=== PATIENT | male | born 1940 | race Caucasian/White ===

== ENCOUNTER 2020-02-27 01:34 | Observation (INO) | payer OTHER, SELFPAY ==
[2020-02-27] VITALS (22 sets, daily range): BP systolic 98–135; BP diastolic 52–78; PULSE 72–93; RESP 17–24; TEMP 35.9–37.3; O2SAT 96–100; BMI 27.1
--- NOTE | 2020-02-27 | ECHO_ITS ---
Patient Info Name: Padmini Amador Age: 79 years : 1940 Gender: Male Ht: 72 in Wt: 199 lbs BSA: 2.15 m2 HR: 80 bpm BP: 102 / 52 mmHg Heart Rhythm: Sinus Arrhythmia Technical Quality: Good Exam Date: 02/27/2020 1:25 PM Exam Location: [facility] Pulmonary Patient Status: Inpatient Admit Date: 02/27/2020 Staff Ordering Physician: Rafa Simms MD ([email or web address]) Wordpress Developer: Ralf Verma RDCS Attending Provider: Nilam Hermosillo DO Exam Type: CA echo doppler color flow Study Info Indications I50.9 - Heart failure, unspecified Complete two-dimensional, color flow and Doppler transthoracic echocardiogram is performed. History/Risk Factors CHF; HTN, SOB, chest pain, DM2. Summary 1. Complete two-dimensional, color flow and Doppler transthoracic echocardiogram is performed. 2. Left ventricular chamber dimension is mildly enlarged. 3. Left ventricular systolic function is moderately to severely reduced, estimated at 35-40%. 4. Left atrial chamber dimension is mildly enlarged. 5. There is moderate aortic valve calcification with moderate restricted motion. 6. There is mild aortic valve stenosis. Aortic valve peak velocity is 2.5 m/s. Aortic valve mean gradient is 18 mmHg. Aortic valve area 1.0 cm2. 7. There is mild to moderate mitral valve regurgitation. 8. There is mild tricuspid valve regurgitation. 9. There is moderate pulmonary hypertension, estimated pulmonary arterial systolic pressure is 45-50 mmHg. 10. Inferior vena cava is dilated. 11. There is no pericardial effusion. Left Ventricle Left ventricular chamber dimension is mildly enlarged. Left ventricular systolic function is moderately to severely reduced, estimated at 35-40%. There is borderline increased left ventricular wall thickness. The left ventricular diastolic function is indeterminate due to fused e and a waves. . Right Ventricle Right ventricular chamber dimension is normal. Right ventricular systolic function is normal. Left Atria Left atrial chamber dimension is mildly enlarged. Right Atria Right atrial chamber dimension is normal. Aortic Valve The aortic valve is trileaflet. There is no aortic valve sclerosis. There is mild aortic valve stenosis. Aortic valve peak velocity is 2.5 m/s. Aortic valve mean gradient is 18 mmHg. Aortic valve area 1.0 cm2. There is no aortic valve regurgitation. There is moderate aortic valve calcification with moderate restricted motion. Pulmonic Valve The pulmonic valve is normal. There is no pulmonic valve stenosis. There is no pulmonic regurgitation. Mitral Valve The mitral valve has normal leaflets. There is no mitral valve stenosis. There is mild to moderate mitral valve regurgitation. Tricuspid Valve The tricuspid valve leaflets are normal. There is no significant tricuspid valve stenosis. There is mild tricuspid valve regurgitation. There is moderate pulmonary hypertension, estimated pulmonary arterial systolic pressure is 45-50 mmHg. Pericardium/Pleural The pericardium appears normal. There is no pericardial effusion. Inferior Vena Cava Inferior vena cava is dilated. Aorta The aortic root size at the sinus of Valsalva is normal. The prox ascending aorta size is normal. Left Ventricular Outflow Tract Name Value Normal
--- NOTE | ~2020-02-27 | XR_ITS ---
XR chest 2V DATE: 02/27/2020 02:29 INDICATION: Shortness of breath, wheezing TECHNIQUE: PA and lateral views COMPARISON: None FINDINGS: Heart size is within normal range. Is aortic arch calcification. The fissures are mildly prominent. Occasional Jacinto B-lines. Minimal blunting of the costophrenic an gles may indicate minimal pleural effusions. Scattered subtle patchy infiltrates are suggested. Differential diagnosis includes pneumonia, mild co ngestive changes. Included skeletal structures are unremarkable other than mild degenerative changes of the spine. Surgical clips overlie the upper abdomen on lateral view. IMPRESSION: Subtle scattered patchy infiltrates; diffusion diagnosis includes pneumonia, pulmonary ed rekha Minimal congestive changes are suggested Reviewed, dictated and finalized at location A. IMPRESSION: Subtle scattered patchy infiltrates; diffusion diagnosis includes p neumonia, pulmonary edema Minimal congestive changes are suggested
--- NOTE | 2020-02-27 01:45 | ECG_ITS ---
Measurements Intervals [place] Rate: 83 P: 56 NM: 192 QRS: -18 QRSD: 107 T: 142 QT: 372 QTc: 438 Interpretive Statements SINUS RHYTHM VENTRCICULAR COUPLET AND VENTRICULAR BIGEMINY DELAYED PRECORDIAL R/S TRANSITION ST-T WAVE ABNORMALITY IN HIGH LATERAL LEADS- CONSIDER ISCHEMIA BASELINE ARTIFACT- V4 ABNORMAL ECG Electronically Signed On 02-27-2020 6:51:03 CDT by John Dutta D.O.
[2020-02-27 02:18] LABS: Basophils Percent Auto 0.6 % (0.2-1.2); Eosinophils Absolute Auto 0.1 K/mm3 (0-0.3); Eosinophils Percent Auto 1.3 % (0-4.4); Hematocrit 36.7 % (42.0-52.0); Hemoglobin 11.8 g/dL (14.0-18.0); Immature Granulocyte Absolute 0.03 K/mm3 (0.00-0.031); Immature Granulocyte Percent A 0.5 % (0-0.5); Lymphocytes Absolute Auto 0.75 K/mm3 (0.9-3.2); Lymphocytes Percent Auto 11.8 % (18.3-44.2); Mean Corpuscular HGB Conc 32.2 g/dl (32-36); Mean Corpuscular Hemoglobin 30.3 pg (26-34); Mean Corpuscular Volume 94.1 fl (80-100); Mean Platelet Volume 12.1 fl (7.4-10.4); Monocytes Absolute Auto 0.8 K/mm3 (0.1-0.6); Monocytes Percent Auto 11.9 % (2.6-8.5); Neutrophils Absolute Auto 4.7 K/mm3 (1.3-6.7); Neutrophils Percent Auto 73.9 % (45.5-73.1); Platelet Count Result 123 k/mm3 (150-375); Red Cell Distribution Width 14.6 % (11.5-14.5); White Blood Count 6.4 K/mm3 (4.5-10.0)
[2020-02-27 02:30] LABS: Anion Gap 8 mmol/L (8-16); Blood Urea Nitrogen 19 mg/dL (9-20); Calcium 9.3 mg/dL (8.4-10.2); Carbon Dioxide 31 mmol/L (22-30); Chloride 102 mmol/L (98-107); Estimated Glomerular Filt Rate > 60; Glucose 85 mg/dL (75-110); Potassium 4.3 mmol/L (3.4-5.0); Sodium 141 mmol/L (137-145)
[2020-02-27 02:54] LABS: NT Pro B Type Natriuretic Pept 5170 PG/ML (5-100); Troponin I 0.129 ng/mL (0.000-0.034)
--- NOTE | 2020-02-27 02:58 | ED.SOB ---
HPI - SOB/Dyspnea General Chief Complaint: Shortness of Breath/Dyspnea Stated Complaint: sob Time Seen by Provider: 02/27/20 01:37 History of Present Illness HPI Narrative: Patient is a 79-year-old male who presents the ER with shortness of breath. Reports over the last 5 weeks he has had increasing difficulty breathing. Is progressed to the point where his ability to walk is severely limited by his shortness of breath. He was winded walking in from the parking lot. Normally he can walk up and down hills without issue. He is denying any central chest pain or pressure. He does feel as though his chest is congested. He reports over the last 5 to 6 weeks he has been having a productive cough of frothy white sputum. Does not seem to be mucus-like. Occasionally has sinus congestion but it is not as persistence of chest congestion. Related Data Home Medications Medication Instructions Recorded Confirmed doxycycline hyclate 100 mg tablet 200 mg PO DAILY tablet 04/18/19 12/27/19 lancets 28 gauge #25 each 04/18/19 12/27/19 Allergies Allergy/AdvReac Type Severity Reaction Status Date / Time No Known Allergies Allergy Verified 02/27/20 01:45 Review of Systems Review of Systems: All systems reviewed & are unremarkable except as noted in HPI and below Constitutional: Constitutional: Denies chills, Reports fatigue and Denies fever(s) ENT: Reports nasal congestion and Denies sore throat Cardiovascular: Cardiovascular: Denies chest pain, Denies rapid heart rate and Denies radiating jaw, neck or arm pain Respiratory: Respiratory: Reports chest congestion, Reports cough, Reports dyspnea and Denies wheezing Gastrointestinal: Gastrointestinal: Denies abdominal pain, Denies nausea and Denies vomiting [facility] Past Medical History Medical History (Updated 02/27/20 @ 04:07 by Zander Hale MD) Diverticulosis of large intestine without perforation or abscess Dyslipidemia, goal LDL below 100 Enlarged prostate without lower urinary tract symptoms (luts) Type 2 diabetes mellitus with hyperglycemia Surgical History Surgical History (Updated 02/27/20 @ 03:01 by Zander Hale MD) History of cholecystectomy Previous back surgery Social History Social History Smoking status: Never smoker Second hand tobacco smoke exposure: No Smoking end date: 05/23/95 Alcohol intake: current Exam Narrative: Exam Narrative: GENERAL: Well-appearing, well-nourished, and in no acute distress. HEAD: Normocephalic, atraumatic. ENT: Mucous membranes moist. NECK: Supple. CHEST: Basilar crackles. No respiratory distress. HEART: Regular rate and rhythm with occasional dropped beats. Normal peripheral pulses. ABDOMEN: Soft, nontender, nondistended. EXTREMITIES: Normal range of motion. 1+ edema. SKIN: Warm, dry, no rash. NEURO: Alert and oriented x3. Course Course Emergency Course: Patient informed of results. Admit to hospitalist service. Lasix for diuresis. Vital Signs Vital signs: Vital Signs Temperature 97.8 F 02/27/20 01:39 Pulse Rate 86 02/27/20 01:39 Respiratory Rate 23 H 02/27/20 01:39 Blood Pressure 135/78 02/27/20 01:39 Pulse Oximetry 99 02/27/20 01:39 Temperature 97.8 F 02/27/20 01:39 Pulse Rate 84 02/27/20 03:08 Respiratory Rate 23 H 02/27/20 03:08 Blood Pressure 125/61 02/27/20 03:08 Pulse Oximetry 99 02/27/20 03:08 MDM - SOB/Dyspnea Lab Data Result diagrams: 02/27/20 02:11 02/27/20 02:11 Labs: Lab Results 02/27/20 02/27/20 Range/Units 02:11 02:11 WBC 6.4 (4.5-10.0) K/mm3 RBC 3.90 L (4.6-6.20) M/mm3 Hgb 11.8 L (14.0-18.0) g/dL Hct 36.7 L (42.0-52.0) % MCV 94.1 (80-100) fl MCH 30.3 (26-34) pg MCHC 32.2 (32-36) g/dl RDW 14.6 H (11.5-14.5) % Plt Count 123 L (150-375) k/mm3 MPV 12.1 H (7.4-10.4) fl Immature Gran % (Auto) 0.5 (0-0.5)
[2020-02-27] MEDS: FUROSEMIDE INJ 40 MG/4 ML VIAL IV PUSH ×3 (03:05→21:05)
--- NOTE | 2020-02-27 05:48 | ADMGEN ---
This patient, Padmini Amador, was admitted to IMU Room 214-01. Patient/family oriented to hospital policies and general routines including ID bracelet, bed and alarms, visiting hours, pain management, procedures, bathroom and other care routines, personal items, smoking policy, room service/diet, and visiting hours. Valuables list has been completed. Information on how to activate the Rapid Response Team has been discussed. Patient/Family are encouraged to report perceived risks to care and to ask questions if they do not understand what they are told or what they should do.
[2020-02-27 06:03] LABS: Troponin I 0.115 ng/mL (0.000-0.034)
[2020-02-27 08:29] LABS: Glucose Point of Care 108 (65-105)
--- NOTE | 2020-02-27 08:44 | PM.CNCAR ---
Assessment and Plan Assessment and plan (1) Congestive heart failure: Code(s): I50.9 - Heart failure, unspecified Status: Acute Assessment and Plan: 79 y/o with no known cardiac history who presents with exertional dyspnea and orthopnea He has evidence of volume overloaded on exam with pulmonary edema on Xray and elevated BNP all consistent with new discovery of congestive heart failure HFrEF vs HFpEF. 2D echo scheduled today to assess LV systolic function and rule out valvular disease Continue IV diuresing with close monitoring of kidney function will start low dose metoprolol for bigeminal PVCs If EF low will also need JUSTINE or ARB He has mild trop elevation with no chest pain or ischemic changes on EKG. Likely type II WA from increased demand with volume overload. No indication of anticoagulation. If EF low then will need ischemic evaluation at some point, possibly in outpatient settings (2) Elevated troponin: Code(s): R77.8 - Other specified abnormalities of plasma proteins Status: Acute Assessment and Plan: Likely due to increase demand (3) Ventricular bigeminy: Code(s): I49.8 - Other specified cardiac arrhythmias Status: Acute Assessment and Plan: Start Metoprolol Frequent PVCs could cause cardiomyopathy however he will need to rule out other common etiologies first like ischemic cardiomyopathy and valvular disease (4) Type 2 diabetes mellitus with hyperglycemia: Code(s): E11.65 - Type 2 diabetes mellitus with hyperglycemia Status: Acute History of Present Illness History of Present Illness Consult date/time: 02/27/20 08:44 79 y/o male with no prior cardiac history, medical history of DM, HLD and BPH who presents with dyspnea. He is very active at baseline however over the last few weeks he started noticing dyspnea and cough with yard work. He saw his PCP and was told he may have allergies. He dyspnea progressed to the point he gets dyspnic walking room to room at house. He also reports orthopnea and it was difficult to get sleep over the last week because of that. He denies chest pain, dizziness or syncope. He presented to ER and chest X ray showed pulmonary edema. His BNP is elevated. His trop is also mildly elevated. EKG shows sinus rhythm with frequent PVCs in bigeminy Never smoker. 3 of his brothers has pacemakers. his father of stroke. Reason For Visit: new onset chf, elevated trop Review of Systems Review of Systems: All systems reviewed & are unremarkable except as noted in HPI and below Constitutional: Constitutional: Denies fatigue and Denies headache(s) Eyes: Eyes: Denies blurry vision ENT: Reports Normal hearing present and Denies headache(s) Cardiovascular: Cardiovascular: Denies chest pain, Denies diaphoresis, Denies pedal edema, Denies leg edema, Denies lightheadedness, Denies palpitations and Denies dyspnea Respiratory: Respiratory: Denies cough and Denies dyspnea Gastrointestinal: Gastrointestinal: Denies abdominal pain Musculoskeletal: Musculoskeletal: Denies back pain Neurologic: Reports Normal hearing present and Denies headache(s) Psychiatric: Psychiatric: Denies anxiety Endocrine: Endocrine: Denies fatigue and Denies palpitations PMFSH Past Medical History Medical History (Updated 02/27/20 @ 09:16 by Rafa Simms MD) Diverticulosis of large intestine without perforation or abscess Dyslipidemia, goal LDL below 100 Enlarged prostate without lower urinary tract symptoms (luts) Type 2 diabetes mellitus with hyperglycemia Surgical History Surgical History (Updated 02/27/20 @ 03:01 by Zander Hale MD) History of cholecystectomy Previous back surgery Social History Social History Smoking status: Never smoker Second hand tobacco smoke exposure: No Smoking end date: 05/23/95 Alcohol intake: never Substance use:
--- NOTE | 2020-02-27 09:44 | PM.IMHP ---
H&P: HPI History of Present Illness Date/Time: 02/27/20 09:44 Chief complaint: new onset chf, elevated trop Narrative: Date of visit 02/26 915. Padmini Amador is a 79 year old male with type 2 diabetes and BPH presented to the emergency room with approximately 4 week history progressive shortness of with dyspnea on exertion and cough. No fever no chills no chest pain. He has not had any significant edema but says he has had trouble sleeping secondary to shortness of breath. No history of smoking or significant occupational exposures. Received IV Lasix p.m. and breathing better this a.m. Review of Systems Review of Systems: Narrative: constitutional weight is steady bed since he has been more short of breath his appetite has been decreased Eye no double vision [place] mouth no pharyngitis laryngitis no wheezing and cough is productive clear phlegm only CV as per present illness has noticed no palpitations or lightheadedness no dysuria hematuria GI no melena hematochezia diarrhea, occasionally intermittently will have trouble with swallowing which is ongoing for years neuro no seizures no syncope integument no skin breakdown rashes PMFSH Past Medical History Medical History (Updated 02/27/20 @ 09:55 by Mansoor Hdez MD) Diverticulosis of large intestine without perforation or abscess Dyslipidemia, goal LDL below 100 Enlarged prostate without lower urinary tract symptoms (luts) Type 2 diabetes mellitus with hyperglycemia Surgical History Surgical History (Updated 02/27/20 @ 09:51 by Mansoor Hdez MD) History of cholecystectomy Previous back surgery S/P herniorrhaphy Family History Family History (Updated 02/27/20 @ 09:51 by Mansoor Hdez MD) Father , age 77 Acute myocardial infarction Mother , age 52 Acute myocardial infarction Sibling Acute myocardial infarction Social History Social History (Updated 02/27/20 @ 09:52 by Mansoor Hdez MD) 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 status: Never smoker Second hand tobacco smoke exposure: No Smoking end date: 05/23/95 Alcohol intake: never Substance use: never Spiritual care concerns: No Meds Home Medications and Allergies Home Medications Medication Instructions Recorded Confirmed Type doxycycline hyclate 100 mg tablet 200 mg PO DAILY tablet 04/18/19 02/27/20 History glimepiride 2 mg tablet 2 mg PO QAM #180 tablet 04/18/19 02/27/20 Rx metformin 1,000 mg tablet 1,000 mg PO BID #180 tablet 04/18/19 02/27/20 Rx pravastatin 40 mg tablet 40 mg PO DAILY #90 tablet 08/13/19 02/27/20 Rx finasteride 5 mg tablet 5 mg PO DAILY #90 tablet 12/11/19 02/27/20 Rx doxazosin 4 mg tablet 8 mg PO DAILY #90 tablet 12/31/19 02/27/20 Rx Allergies Allergy/AdvReac Type Severity Reaction Status Date / Time No Known Allergies Allergy Verified 02/27/20 01:45 Vital Signs Vital Signs - 24 hr 02/27/20 01:39 02/27/20 02:26 02/27/20 03:08 Temperature 36.6 C Pulse Rate 86 88 84 Respiratory Rate 23 H 23 H Blood Pressure 135/78 125/61 Pulse Oximetry 99 99 02/27/20 04:13 02/27/20 04:54 02/27/20 05:12 Temperature Pulse Rate 83 81 83 Respiratory Rate 24 H 19 17 Blood Pressure 111/64 129/63 132/70 Pulse Oximetry 96 98 97 02/27/20 05:40 02/27/20 06:00 02/27/20 08:44 Temperature 35.9 C L 36.2 C L Pulse Rate 87 87 79 Respiratory Rate 18 18 Blood Pressure 111/75 118/58 L Pulse Oximetry 97 100 Exam Narrative: Exam Narrative: blood pressure 110/58 pulse 78 respirations 18 per minute saturating 100% on room air pupils equal reactive light sclera anicteric mouth mucosa normal hydration upper and lower dentures which were not removed neck supple no adenopathy thyromegaly carotid bruits lungs bibasilar crackles posteriorly CV regular rate was in with extrasystole and systolic ejection murmur lower left sternal border radiating toward
[2020-02-27] MEDS: PRAVASTATIN SODIUM 20 MG TABLET 40 MG PO (10:19)
[2020-02-27] MEDS: FINASTERIDE 5 MG TABLET PO (10:19)
[2020-02-27] MEDS: METOPROLOL SUCCINATE EXT REL 25 MG TABCR PO (10:19)
[2020-02-27] MEDS: POTASSIUM CHLORIDE 20 MEQ TABLET 40 MEQ PO (10:19)
[2020-02-27] MEDS: DOXAZOSIN MESYLATE 4 MG TABLET 8 MG PO (10:20)
[2020-02-27] MEDS: ENOXAPARIN 40 MG/0.4 ML SYRINGE SUB-Q (10:21)
[2020-02-27 11:36] LABS: Troponin I 0.101 ng/mL (0.000-0.034)
[2020-02-27 11:39] LABS: Glucose Point of Care 299 (65-105)
[2020-02-27] MEDS: metFORMIN HCL 500 MG TABLET 1000 MG PO ×2 (15:03→16:56)
[2020-02-27 16:39] LABS: Glucose Point of Care 144 (65-105)
[2020-02-27] MEDS: lisinopriL 5 MG TABLET PO (16:56)
[2020-02-27 20:16] LABS: Glucose Point of Care 108 (65-105)
[2020-02-28] VITALS (10 sets, daily range): BP systolic 102–104; BP diastolic 52–62; PULSE 59–72; RESP 16–20; TEMP 36.3; O2SAT 96–98
[2020-02-28 05:50] LABS: Basophils Percent Auto 0.5 % (0.2-1.2); Eosinophils Percent Auto 0.7 % (0-4.4); Hematocrit 33.9 % (42.0-52.0); Hemoglobin 11.1 g/dL (14.0-18.0); Immature Granulocyte Absolute 0.01 K/mm3 (0.00-0.031); Immature Granulocyte Percent A 0.2 % (0-0.5); Lymphocytes Absolute Auto 0.78 K/mm3 (0.9-3.2); Lymphocytes Percent Auto 14.2 % (18.3-44.2); Mean Corpuscular HGB Conc 32.7 g/dl (32-36); Mean Corpuscular Hemoglobin 29.9 pg (26-34); Mean Corpuscular Volume 91.4 fl (80-100); Mean Platelet Volume 12.5 fl (7.4-10.4); Monocytes Percent Auto 17.7 % (2.6-8.5); Neutrophils Absolute Auto 3.7 K/mm3 (1.3-6.7); Neutrophils Percent Auto 66.7 % (45.5-73.1); Platelet Count Result 124 k/mm3 (150-375); Red Blood Count 3.71 M/mm3 (4.6-6.20); Red Cell Distribution Width 14.3 % (11.5-14.5); White Blood Count 5.5 K/mm3 (4.5-10.0)
[2020-02-28 05:52] LABS: Immature Reticulocyte Fraction 13.8 % (3.0-15.9); Reticulocyte Hemoglobin Conten 32.3 pg (28.2-35.7); Reticulocyte Percent 1.84 % (0.7-4.3); Reticulocytes Absolute 0.07 B/L (32.2-175.7)
[2020-02-28 06:15] LABS: Magnesium 1.6 mg/dL (1.6-2.3)
[2020-02-28 06:20] LABS: Anion Gap 6 mmol/L (8-16); Blood Urea Nitrogen 21 mg/dL (9-20); Calcium 9.1 mg/dL (8.4-10.2); Carbon Dioxide 35 mmol/L (22-30); Chloride 95 mmol/L (98-107); Estimated CRCL calculation 50 ml/min; Estimated Glomerular Filt Rate 59; Glucose 95 mg/dL (75-110); Lactate Dehydrogenase 400 U/L (313-618); Sodium 136 mmol/L (137-145)
[2020-02-28 06:46] LABS: Iron 24 ug/dL (49-181)
[2020-02-28 06:56] LABS: Percent Iron Saturation 7 % (20-50)
[2020-02-28 08:11] LABS: Glucose Point of Care 102 (65-105)
[2020-02-28] MEDS: metFORMIN HCL 500 MG TABLET 1000 MG PO (08:17)
[2020-02-28] MEDS: FINASTERIDE 5 MG TABLET PO (08:18)
[2020-02-28] MEDS: ENOXAPARIN 40 MG/0.4 ML SYRINGE SUB-Q (08:18)
[2020-02-28] MEDS: METOPROLOL SUCCINATE EXT REL 25 MG TABCR PO (08:18)
[2020-02-28] MEDS: FUROSEMIDE INJ 40 MG/4 ML VIAL IV PUSH (08:18)
[2020-02-28] MEDS: PRAVASTATIN SODIUM 20 MG TABLET 40 MG PO (08:18)
[2020-02-28] MEDS: DOXAZOSIN MESYLATE 4 MG TABLET 8 MG PO (08:18)
[2020-02-28] MEDS: lisinopriL 5 MG TABLET PO (08:18)
--- NOTE | 2020-02-28 09:10 | PM.PNCARD ---
Progress Note: A&P Assessment and Plan (1) Congestive heart failure: Code(s): I50.9 - Heart failure, unspecified Status: Acute Assessment and Plan: 79 y/o with no known cardiac history who presents with exertional dyspnea and orthopnea 2D echo showed EF of 35% with mild aortic stenosis, mild to moderate mitral regurgitation Net negative ~3 liters over the last 24 hours. Creatinine stable Will switch Lasix to po. Would discharge on 40 mg po daily He was started on low dose Metoprolol 25 daily and Lisinopril 5 daily. Will d/c Doxazosyn to allow BP room for further up titration of BB/JUSTINE He will need ischemic evaluation for cardiomyopathy. Will arrange for [facility] as outpatient He has very frequent PVCs. If ischemic work up negative then may consider EP referral as PVC could potentially be the etiology of cardiomyopathy. Will monitor for now on Metoprolol started this admission He has mild trop elevation with no chest pain or ischemic changes on EKG. Likely type II AR from increased demand. Will arrange for LHC as above for ischemic evaluation (2) Elevated troponin: Code(s): R77.8 - Other specified abnormalities of plasma proteins Status: Acute Assessment and Plan: Likely due to increase demand (3) Ventricular bigeminy: Code(s): I49.8 - Other specified cardiac arrhythmias Status: Acute Assessment and Plan: Start Metoprolol (4) Type 2 diabetes mellitus with hyperglycemia: Code(s): E11.65 - Type 2 diabetes mellitus with hyperglycemia Status: Acute Subjective Date/time seen: 02/28/20 09:10 He feels much better today. He went for a walk in the hallway and states his breathing is remarkable better Review of Systems Review of Systems: All systems reviewed & are unremarkable except as noted in HPI and below Constitutional: Constitutional: Denies fatigue and Denies headache(s) Eyes: Eyes: Denies blurry vision ENT: Reports Normal hearing present and Denies headache(s) Cardiovascular: Cardiovascular: Denies chest pain, Denies diaphoresis, Denies pedal edema, Denies leg edema, Denies lightheadedness, Denies palpitations and Denies dyspnea Respiratory: Respiratory: Denies cough and Denies dyspnea Gastrointestinal: Gastrointestinal: Denies abdominal pain Musculoskeletal: Musculoskeletal: Denies back pain Neurologic: Reports Normal hearing present and Denies headache(s) Psychiatric: Psychiatric: Denies anxiety Endocrine: Endocrine: Denies fatigue and Denies palpitations Exam Const: General: no acute distress Eyes: Sclera: sclerae normal Neck: Carotids: no bruits Other: + JVD Resp: Effort & Inspection: normal respiratory effort Auscultation: clear to auscultation bilaterally Cardio: Rate: regular rate and not tachycardic Rhythm: regular rhythm Heart sounds: no gallops, Murmur heart sound present and no rubs Other: Regularly irregular. Soft murmur noted. Skin: General skin exam: normal color Neuro: Cranial nerves: Yes Normal hearing present Speech: normal speech Extrem: General: normal to inspection and no edema Psych: Affect: normal affect Objective Data Vital Signs Vital Signs: Vital Signs - 24 hr 02/27/20 10:00 02/27/20 10:19 02/27/20 12:00 Temperature Pulse Rate 75 90 79 Respiratory Rate Blood Pressure Pulse Oximetry 02/27/20 12:48 02/27/20 14:00 02/27/20 16:00 Temperature 36.4 C Pulse Rate 76 74 93 Respiratory Rate 20 Blood Pressure 102/52 L Pulse Oximetry 98 02/27/20 16:44 02/27/20 18:00 02/27/20 19:43 Temperature 36.7 C 37.3 C Pulse Rate 84 86 77 Respiratory Rate 20 18 Blood Pressure 98/58 L 101/52 L Pulse Oximetry 100 97 02/27/20 20:00 02/27/20 22:00 02/27/20 23:58 Temperature 36.8 C Pulse Rate 80 80 72 Respiratory Rate 18 18 Blood Pressure 110/58 L Pulse Oximetry 97 96 02/28/20 00:00 02/28/20 02:00 02/28/20 04:00 Temperature Pulse Rate 70 63 70
--- NOTE | 2020-02-29 18:25 | PM.DS ---
DS: Admitting Diagnosis Admitting Diagnosis Admitting Diagnosis: new onset chf, elevated trop DS: Discharge Diagnosis Discharge Diagnosis (1) Congestive heart failure: Code(s): I50.9 - Heart failure, unspecified Status: Acute Assessment and Plan: appears to be new onset congestive failure . echo revealed ejection fraction of 35-40% with mild aortic stenosis and moderate mitral insufficiency with mild to moderate pulmonary hypertension estimated at 45. Was started on beta-jaya, Lasix, and JUSTINE-inhibitor. Will follow-up with BMP in a week and with Cardiology (2) Elevated troponin: Code(s): R77.8 - Other specified abnormalities of plasma proteins Status: Acute Assessment and Plan: probable related to heart failure but may need ischemic evaluation later probable cardiac catheterization since he is so active (3) Type 2 diabetes mellitus with hyperglycemia: Code(s): E11.65 - Type 2 diabetes mellitus with hyperglycemia Status: Acute Assessment and Plan: blood sugar well controlled will continue oral hypoglycemics at home (4) Enlarged prostate without lower urinary tract symptoms (luts): Code(s): N40.0 - Benign prostatic hyperplasia without lower urinary tract symptoms Status: Acute Assessment and Plan: continue finasteride and with blood pressure lower tamsulosin HS with substituted for doxazosin (5) Anemia: Code(s): D64.9 - Anemia, unspecified Status: Acute Assessment and Plan: hemoglobin and 2001 so 11.1. With slightly decreased platelets . iron studies compatible with anemia chronic disease and B12 toward the low side at 248 a.m. which was not replaced while here serum protein electrophoresis was pending at discharge DS: Summary Hospital Course Hospital Course: 79-year-old diabetic admitted with increasing shortness of breath over the last month. Chest x-ray looked to be congestive heart failure and was given IV Lasix and beta-jaya. Echocardiogram revealed ejection fraction 35-40% with mild aortic stenosis and moderate mitral insufficiency and mild to moderate pulmonary hypertension. Was treated with metoprolol succinate, lisinopril, and furosemide which will be continued on discharge. He will follow-up with BMP and Cardiology within the week Phani probably have outpatient cardiac catheterization. creatinine at discharge was 1.2 potassium 4.0 he has mild anemia which had been present for several years and iron studies were compatible with anemia chronic disease but B12 level was low at 248 and was not replaced here. Follow-up with primary care for possible parental injections Time Spent with Patient Time attestation: Total time spent providing and/or coordinating discharge services: 35 minutes Exam Narrative: Exam Narrative: condition on discharge blood pressure 106/52 pulse 60 saturating 98% on room air afebrile lungs clear CV regular rate rhythm faint systolic murmur abdomen benign extremities without edema good distal pulses neuro alert pleasant cooperative no focal deficits up and about walking the halls without any shortness of breath stable and ready for discharge Discharge Plan Discharge Attending physician on discharge: Mansoor Hdez Consulting providers: Rafa Simms Discharging Clinician: Mansoor Hdez Patient Disposition: Home, Self-Care Activity: as tolerated Diet: diabetic and low sodium Discharge Instructions: Follow up with Dr. Burdick in one week. [phone] Patient Instructions: Heart Failure (DC) Stand Alone Forms: General Discharge Information Follow-up/Referrals: Floyd Mckinney MD [Primary Care Provider] - 2 Weeks Rafa Simms MD [Physician] - 1 Week Discharge Medications: New lisinopril 5 mg Tablet 5 mg PO QAM Qty: 30 RF: 0 metoprolol succinate [Toprol XL] 25 mg Tablet Extended Release 24 Hr 25 mg PO QAM Qty: 30
[2020-03-04 22:55] LABS: Albumin 3.4 g/dL (3.8-4.8); Alpha 1 Globulin 0.3 g/dL (0.2-0.3); Alpha 2 Globulin 0.6 g/dL (0.5-0.9); Beta 1 Globulin 0.4 g/dL (0.4-0.6); Gamma Globulin 0.7 g/dL (0.8-1.7); Interpretation Consistent with; Protein, Total 5.6 g/dL (6.1-8.1)
== END 2020-02-28 10:58 | disposition home or self-care (01) ==
LOC: ANHED 04:07 → ANHIMU 06:33
PROVIDERS: Admitting Provider Internal Medicine; Emergency Provider Emergency Medicine; PCP Internal Medicine; Visit Provider Internal Medicine
DX: I50.9 Heart failure, unspecified (principal); R77.8 Other specified abnormalities of plasma proteins; E78.5 Hyperlipidemia, unspecified; E11.9 Type 2 diabetes mellitus without complications; I49.8 Other specified cardiac arrhythmias; N40.0 Benign prostatic hyperplasia without lower urinary tract symptoms; D63.8 Anemia in other chronic diseases classified elsewhere; Z79.84 Long term (current) use of oral hypoglycemic drugs
CPT/HCPCS: 36415; 71046; 80048; 82607; 82728; 83540; 83550; 83615; 83735; 83880; 84155; 84165; 84443; 84484; 85025; 85046; 93005; 93306; 96372; 96374; 96376; 99285; A9270; G0378; J1650; J1940

== ENCOUNTER 2020-03-03 09:20 | Outpatient (CLI) | payer OTHER, SELFPAY ==
[2020-03-03 09:57] LABS: Anion Gap 8 mmol/L (8-16); Blood Urea Nitrogen 27 mg/dL (9-20); Calcium 9.4 mg/dL (8.4-10.2); Carbon Dioxide 35 mmol/L (22-30); Chloride 93 mmol/L (98-107); Estimated Glomerular Filt Rate 59; Glucose 111 mg/dL (75-110); Potassium 4.6 mmol/L (3.4-5.0); Sodium 136 mmol/L (137-145)
== END 2020-03-03 09:21 | disposition home or self-care (01) ==
PROVIDERS: PCP Internal Medicine; Visit Provider Internal Medicine
DX: I50.9 Heart failure, unspecified (principal)
CPT/HCPCS: 36415; 80048

== ENCOUNTER 2020-03-07 02:17 | Outpatient (CLI) | payer OTHER, SELFPAY ==
[2020-03-07 18:25] LABS: SARS-CoV-2 RNA PCR Negative
== END 2020-03-07 02:18 | disposition home or self-care (01) ==
LOC: ANHCOVIDDT 02:17
PROVIDERS: PCP Internal Medicine; Visit Provider Specialist
DX: Z01.812 Encounter for preprocedural laboratory examination (principal); Z20.828 Contact with and (suspected) exposure to other viral communicable diseases
CPT/HCPCS: 87635; C9803; U0003

== ENCOUNTER 2020-03-10 02:14 | Day surgery (SDC) | payer OTHER, SELFPAY ==
[2020-03-07 13:44] VITALS: BMI 27.8
[2020-03-10] VITALS (17 sets, daily range): BP systolic 98–116; BP diastolic 63–80; PULSE 58–76; RESP 11–22; TEMP 36.4; O2SAT 96–100; BMI 27.0
[2020-03-10 11:40] LABS: Basophils Percent Auto 0.4 % (0.2-1.2); Eosinophils Absolute Auto 0.1 K/mm3 (0-0.3); Eosinophils Percent Auto 0.6 % (0-4.4); Hematocrit 39.2 % (42.0-52.0); Hemoglobin 12.6 g/dL (14.0-18.0); Immature Granulocyte Absolute 0.04 K/mm3 (0.00-0.031); Immature Granulocyte Percent A 0.4 % (0-0.5); Lymphocytes Absolute Auto 1.02 K/mm3 (0.9-3.2); Lymphocytes Percent Auto 10.9 % (18.3-44.2); Mean Corpuscular HGB Conc 32.1 g/dl (32-36); Mean Corpuscular Hemoglobin 29.6 pg (26-34); Mean Platelet Volume 11.7 fl (7.4-10.4); Monocytes Absolute Auto 1.1 K/mm3 (0.1-0.6); Monocytes Percent Auto 11.7 % (2.6-8.5); Neutrophils Absolute Auto 7.1 K/mm3 (1.3-6.7); Platelet Count Result 167 k/mm3 (150-375); Red Blood Count 4.26 M/mm3 (4.6-6.20); Red Cell Distribution Width 14.1 % (11.5-14.5); White Blood Count 9.4 K/mm3 (4.5-10.0)
[2020-03-10 11:51] LABS: Anion Gap 8 mmol/L (8-16); Blood Urea Nitrogen 21 mg/dL (9-20); Calcium 9.8 mg/dL (8.4-10.2); Carbon Dioxide 30 mmol/L (22-30); Chloride 99 mmol/L (98-107); Estimated CRCL calculation 52 ml/min; Estimated Glomerular Filt Rate > 60; Glucose 109 mg/dL (75-110); Potassium 4.7 mmol/L (3.4-5.0); Sodium 137 mmol/L (137-145)
[2020-03-10 11:55] LABS: INR 1.1; Prothrombin Time 14.2 Seconds (11.1-14.7)
--- NOTE | 2020-03-10 13:11 | WPDMODSED ---
Moderate Sedation Note-Pt Data Patient Data Allergies Allergy/AdvReac Type Severity Reaction Status Date / Time No Known Allergies Allergy Verified 02/27/20 01:45 Home Medications Medication Instructions Recorded Confirmed Type glimepiride 2 mg tablet 2 mg PO QAM #180 tablet 04/18/19 03/10/20 Rx metformin 1,000 mg tablet 1,000 mg PO BID #180 tablet 04/18/19 03/10/20 Rx pravastatin 40 mg tablet 40 mg PO DAILY #90 tablet 08/13/19 03/10/20 Rx finasteride 5 mg tablet 5 mg PO DAILY #90 tablet 12/11/19 03/10/20 Rx furosemide [Lasix] 40 mg PO DAILY #30 tablet 02/28/20 03/10/20 Rx lisinopril 5 mg PO QAM #30 tablet 02/28/20 03/10/20 Rx metoprolol succinate [Toprol XL] 25 mg PO QAM #30 tablet 02/28/20 03/10/20 Rx tamsulosin 0.4 mg PO HS #30 cap 02/28/20 03/10/20 Rx Current Medications: Active Medications Sodium Chloride (Normal Saline Iv) 500 mls @ 100 mls/hr IV CONT .Q5H ENIO Sedation/Anesthesia: No previous sedation/anesthesia problems (including family history). [facility] Past Medical History Medical History (Updated 02/27/20 @ 09:55 by Mansoor Hdez MD) Diverticulosis of large intestine without perforation or abscess Dyslipidemia, goal LDL below 100 Enlarged prostate without lower urinary tract symptoms (luts) Type 2 diabetes mellitus with hyperglycemia Surgical History Surgical History (Updated 02/27/20 @ 09:51 by Mansoor Hdez MD) History of cholecystectomy Previous back surgery S/P herniorrhaphy Family History Family History (Updated 02/27/20 @ 09:51 by Mansoor Hdez MD) Father , age 77 Acute myocardial infarction Mother , age 52 Acute myocardial infarction Sibling Acute myocardial infarction Social History Social History (Updated 02/27/20 @ 09:52 by Mansoor Hdez MD) 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 status: Never smoker Second hand tobacco smoke exposure: No Smoking end date: 05/23/95 Alcohol intake: never Substance use: never Living arrangements: with family Spiritual care concerns: No Mod Sed Physical Exam Physical Exam Pre Procedural Exam: Normal: Appearance, Eyes, Ears, Nose, Neck, Throat, Airway, Lungs, Heart Size, Heart Rate, Heart Rhythm, Neuro Exam, Abdomen, Liver, Kidneys, Spleen, Breasts, Genitalia, Extremities and Skin Hours since solid foods: 8 Hours since liquid intake: 8 Internal Medicine - PN: Obj Da Vital Signs Vital Signs: Vital Signs - 24 hr 03/10/20 11:53 Temperature 36.4 C Pulse Rate 58 L Respiratory Rate 16 Blood Pressure 101/72 Pulse Oximetry 99 Meds/Results Medications: Active Medications Generic Name Dose Route Start Last Admin Trade Name Freq PRN Reason Stop Dose Admin Sodium Chloride 500 mls @ 100 mls/hr 03/10/20 06:30 Normal Saline Iv IV CONT .Q5H ENIO Labs CBC & Chem 7: 03/10/20 11:32 03/10/20 11:32 Labs: Laboratory Results - last 24 hr 03/10/20 03/10/20 03/10/20 11:32 11:32 11:32 WBC 9.4 RBC 4.26 L Hgb 12.6 L Hct 39.2 L MCV 92.0 MCH 29.6 MCHC 32.1 RDW 14.1 Plt Count 167 MPV 11.7 H Immature Gran % (Auto) 0.4 Neut % (Auto) 76.0 H Lymph % (Auto) 10.9 L [place] % (Auto) 11.7 H Eos % (Auto) 0.6 Baso % (Auto) 0.4 Lymph # (Auto) 1.02 [place] # (Auto) 1.1 H Eos # (Auto) 0.1 Baso # (Auto) 0.0 Abs Immat Gran (auto) 0.04 H Absolute Neuts (auto) 7.1 H Absolute Nucleated RBC 0.0 Nucleated RBC % 0.0 PT 14.2 INR 1.1 Sodium 137 Potassium 4.7 Chloride 99 Carbon Dioxide 30 Anion Gap 8 BUN 21 H Creatinine 1.10 Estim Creat Clear Calc 52 Estimated GFR > 60 Glucose 109 Calcium 9.8 ASA Classification/Sedation ASA Classification/Sedation ASA Class: III Risks: Risks, benefits and alternatives explained and patient/family accepted plan for sedation. Patient re-evaluated immediately karen
--- NOTE | 2020-03-10 13:13 | PM.IMHP ---
H&P: HPI History of Present Illness Date/Time: 03/10/20 13:13 79 years old gentleman, with history of dyslipidemia hypertension, and diabetes mellitus, was in the hospital recently with congestive heart failure, echo showed severe left ventricular systolic dysfunction. After adequate diuresis and treatment was discharged home to come back as an outpatient for elective cardiac catheterization in view of significant risk factors for coronary disease and history of congestive heart failure. Chief complaint: SOB Narrative: Padmini Amador is a 79 year old male [facility] Past Medical History Medical History (Updated 02/27/20 @ 09:55 by Mansoor Hdez MD) Diverticulosis of large intestine without perforation or abscess Dyslipidemia, goal LDL below 100 Enlarged prostate without lower urinary tract symptoms (luts) Type 2 diabetes mellitus with hyperglycemia Surgical History Surgical History (Updated 02/27/20 @ 09:51 by Mansoor Hdez MD) History of cholecystectomy Previous back surgery S/P herniorrhaphy Family History Family History (Updated 02/27/20 @ 09:51 by Mansoor Hdez MD) Father , age 77 Acute myocardial infarction Mother , age 52 Acute myocardial infarction Sibling Acute myocardial infarction Social History Social History (Updated 02/27/20 @ 09:52 by Mansoor Hdez MD) 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 status: 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 smoker Second hand tobacco smoke exposure: No Smoking end date: 05/23/95 Alcohol intake: never Substance use: never Living arrangements: with family Spiritual care concerns: No Meds Home Medications and Allergies Home Medications Medication Instructions Recorded Confirmed Type glimepiride 2 mg tablet 2 mg PO QAM #180 tablet 04/18/19 03/10/20 Rx metformin 1,000 mg tablet 1,000 mg PO BID #180 tablet 04/18/19 03/10/20 Rx pravastatin 40 mg tablet 40 mg PO DAILY #90 tablet 08/13/19 03/10/20 Rx finasteride 5 mg tablet 5 mg PO DAILY #90 tablet 12/11/19 03/10/20 Rx furosemide [Lasix] 40 mg PO DAILY #30 tablet 02/28/20 03/10/20 Rx lisinopril 5 mg PO QAM #30 tablet 02/28/20 03/10/20 Rx metoprolol succinate [Toprol XL] 25 mg PO QAM #30 tablet 02/28/20 03/10/20 Rx tamsulosin 0.4 mg PO HS #30 cap 02/28/20 03/10/20 Rx Allergies Allergy/AdvReac Type Severity Reaction Status Date / Time No Known Allergies Allergy Verified 02/27/20 01:45 Vital Signs Vital Signs - 24 hr 03/10/20 11:53 Temperature 36.4 C Pulse Rate 58 L Respiratory Rate 16 Blood Pressure 101/72 Pulse Oximetry 99 Exam Narrative: Exam Narrative: Awake alert oriented x3 not in acute distress Neck is supple no obvious JVD, no carotid bruit Chest: Good air entry bilaterally, lungs are clear to auscultation and percussion bilaterally Cardiovascular: Regular rate and rhythm, 2/6 systolic murmur noted left sternal border Abdomen: Soft nontender bowel sounds positive Extremities: No edema has good pulses distally bilaterally H&P: Results Labs Labs: Short CBC 03/10/20 Range/Units 11:32 WBC 9.4 (4.5-10.0) K/mm3 Hgb 12.6 L (14.0-18.0) g/dL Hct 39.2 L (42.0-52.0) % Plt Count 167 (150-375) k/mm3 [facility] 03/10/20 11:32 Sodium 137 Potassium 4.7 Chloride 99 Carbon Dioxide 30 BUN 21 H Creatinine 1.10 Glucose 109 Calcium 9.8 Assessment and Plan Assessment and plan (1) Type 2 diabetes mellitus with hyperglycemia: Code(s): E11.65 - Type 2 diabetes mellitus with hyperglycemia Status: Acute Assessment and Plan: will plan cardiac catheterization. The procedure was discussed with the patient, risks, benefits, and alternative diagnostic measure was explained, patient agreed to the procedure (2) Elevated troponin: Code(s): R77.8 - Other specified abnormalities of plasma proteins Status: Acute (3) Congestive heart failure: Code(s): I50.9 - Heart failur
--- NOTE | 2020-03-10 13:34 | P.PCNCC_ITS ---
Cardiac Cath Procedure Note Date of procedure:: 03/10/20 Performing physician:: Jarvis Burdick MD Procedure: 1. Left heart catheterization, selective coronary angiogram. 2. Left ventricular Pressure measurements 3. Conscious sedation. Chucking And Sawing Machine Operator: Dr. Jarvis Burdick History: 79 years old gentleman with history of diabetes mellitus hypertension was seen because of congestive heart failure, had slight elevation troponin was brought to the laboratory animal caretaker for elective cardiac catheterization for definitive diagnosis of coronary disease Complications: None. Sedation: Conscious sedation, local anesthesia, using 1 mg of Versed said, 25 mcg of fentanyl, and using 1% lidocaine for local anesthesia. starting time is 1:11 p.m. ending time is 1:32 p.m. Technique: After informed consent was obtained from patient, was brought to the laboratory animal caretaker, put in the laboratory animal caretaker table, prepped and draped in usual sterile fashi on. Five [place] sheath was inserted into the right common femoral artery, through the sheath 5 [place] JL4 catheter inserted, advanced to the left coronary artery, left coronary artery angiogram was obtained. The catheter was exchanged over guidewire into a 5 [place] JR4 catheter, advanced to the right coronary artery, right coronary artery angiogram was obtained. The catheter then was exchanged over guidewire into this 5 [place] pigtail catheter, advanced to left ventricle, left ventricular pressure was obtained, no LV g was done due to elevated LVEDP. The catheter then was pulled, the sheath was pulled applying manual pressure for arterial hemostasis. Patient tolerated the procedure no complication, taken from the laboratory animal caretaker to his room in stable condition stable vital signs. Hemodynamics: aortic pressure 106/50 . LV pressure 104/06 with LVEDP of 29-32 mmHg Angiographic findings: Left main: Medium size artery no significant disease or stenosis. Lad medium size artery showed proximal 60% narrowing followed by mid 60% disease and distally 90% disease but at the starting point of the apex. First and 2nd diagonal branch showed ostial 90% disease Left circumflex artery, medium size artery, no significant disease or stenosis. 1st obtuse marginal large caliber vessel showed ostial 90% disease and distally it bifurcates into big vessels distally the 2 vessels both have 90% ostial stenosis RCA: codominant vessel no significant disease or stenosis LV: was not done but the he has elevated LVEDP and echocardiogram showed severe left ventricular systolic dysfunction Summary: Multivessel severe coronary artery disease with severe left ventricular systolic dysfunction Recommendation: due to the complexity of the lesion and severe left ventricular systolic dysfunction best option would be coronary bypass surgery, but there was significant difficulty in view of distal disease of the LAD, will consider hyper approach, possibly with FLOWERS to LAD saphenous venous graft to diagonal branches and then the branch of the obtuse marginal, followed by attempting angioplasty to the distal LAD. Meanwhile continue medical treatment risk factors modification.
--- NOTE | 2020-03-10 17:39 | SUR.PHASEII ---
up to chair with no signs of hematoma or bleeding, will continue to monitor.
== END 2020-03-10 18:40 | disposition home or self-care (01) ==
PROVIDERS: PCP Internal Medicine; Visit Provider Specialist
PROC: 4A023N7 Measurement of Cardiac Sampling and Pressure, Left Heart, Percutaneous Approach (ICD-10-PCS; CPT 93452; principal; 2020-03-10 12:30)
DX: I25.10 Atherosclerotic heart disease of native coronary artery without angina pectoris (principal); I11.0 Hypertensive heart disease with heart failure; I50.20 Unspecified systolic (congestive) heart failure; E11.65 Type 2 diabetes mellitus with hyperglycemia; R77.8 Other specified abnormalities of plasma proteins; E78.5 Hyperlipidemia, unspecified; N40.0 Benign prostatic hyperplasia without lower urinary tract symptoms; Z79.84 Long term (current) use of oral hypoglycemic drugs
CPT/HCPCS: 36415; 80048; 85025; 85610; 93458; C1769; C1887; C1894; J0461; J1644; J2250; J3010; J7040

== ENCOUNTER 2020-03-10 23:14 | Inpatient (IN) | payer OTHER, SELFPAY ==
[2020-03-10 23:33] VITALS: BP 119/65; PULSE 68; RESP 20; TEMP 36.8; O2SAT 99
--- NOTE | 2020-03-10 23:36 | ED.SOB ---
HPI - SOB/Dyspnea General Chief Complaint: Shortness of Breath/Dyspnea Stated Complaint: cant breathe Time Seen by Provider: 03/10/20 23:25 Source: patient Mode of arrival: ambulatory Limitations: no limitations History of Present Illness HPI Narrative: Patient is a 79-year-old male complaining of shortness of breath said it has been going on for a while but worse tonight. Patient has a history of CHF recently diagnosed, placed on Lasix 2 weeks ago. Patient states that he was just discharged today after going undergoing a heart catheterization, was told by his electric motor repair supervisor that he is going to refer him to cardiothoracic surgeon. Patient denies any chest pain, abdominal pain, nausea vomiting, diaphoresis or fever. Related Data Allergies Allergy/AdvReac Type Severity Reaction Status Date / Time No Known Allergies Allergy Verified 02/27/20 01:45 Review of Systems Review of Systems: All systems reviewed & are unremarkable except as noted in HPI and below Constitutional: Constitutional: Denies body ache(s), Denies chills, Denies excessive sweating, Denies fatigue, Denies fever(s), Denies headache(s), Denies lethargy, Denies malaise, Denies weakness and Denies weight loss Eyes: Eyes: Denies blurry vision, Denies change in vision and Denies loss of vision ENT: Denies dizziness, Denies ear discharge, Denies headache(s), Denies lip swelling, Denies epistaxis, Denies nasal congestion, Denies neck pain, Denies throat swelling and Denies tongue swelling Cardiovascular: Cardiovascular: Denies chest pain, Denies chest pain at rest, Denies chest pain with activity, Denies diaphoresis, Denies rapid heart rate, Denies edema, Denies irregular heart rhythm, Denies lightheadedness, Denies palpitations, Denies dyspnea and Denies dyspnea on exertion Respiratory: Respiratory: Denies chest congestion, Denies cough and Denies hemoptysis Gastrointestinal: Gastrointestinal: Denies abdominal pain, Denies melena, Denies hematochezia, Denies diarrhea, Denies nausea, Denies vomiting and Denies hematemesis Musculoskeletal: Musculoskeletal: Denies abnormal gait, Denies deformity, Denies joint swelling, Denies limited range of motion, Denies neck pain and Denies numbness Neurologic: Denies Abnormal speech present, Denies abnormal gait, Denies confusion, Denies dizziness, Denies headache(s), Denies focal weakness, Denies loss of vision, Denies numbness, Denies Other visual disturbances, Denies Sensory deficit (Neuro) and Denies weakness Psychiatric: Psychiatric: Denies confusion, Denies depression, Denies auditory hallucinations, Denies homicidal ideation and Denies suicidal ideation Endocrine: Endocrine: Denies cold intolerance, Denies excessive sweating, Denies fatigue, Denies heat intolerance and Denies palpitations Hematologic/Lymphatic: Hematologic/Lymphatic: Denies easy bleeding and Denies easy bruising Allergic/Immunologic: Allergic/Immunologic: Denies lip swelling, Denies throat swelling and Denies tongue swelling PMF Past Medical History Medical History (Updated 03/11/20 @ 01:24 by Christian Zimmerman MD) Diverticulosis of large intestine without perforation or abscess Dyslipidemia, goal LDL below 100 Enlarged prostate without lower urinary tract symptoms (luts) Type 2 diabetes mellitus with hyperglycemia Surgical History Surgical History (Updated 02/27/20 @ 09:51 by Mansoor Hdez MD) History of cholecystectomy Previous back surgery S/P herniorrhaphy Family History Family History (Updated 02/27/20 @ 09:51 by Mansoor Hdez MD) Father , age 77 Acute myocardial infarction Mother , age 52 Acute myocardial infarction Sibling Acute myocardial infarction Social History Social History (Updated 02/27/20 @ 09:52 by Mansoor Hdez MD) 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
[2020-03-10] MEDS: ALBUTEROL SULFATE NEB 2.5 MG/0.5 ML INH 5 MG INHALATION (23:47)
[2020-03-10] MEDS: IPRATROPIUM BR 0.02% INH SOLN 0.5 MG/2.5 ML VIAL INHALATION (23:47)
[2020-03-10 23:49] VITALS: PULSE 66; RESP 22
[2020-03-10 23:52] LABS: Basophils Percent Auto 0.4 % (0.2-1.2); Eosinophils Absolute Auto 0.1 K/mm3 (0-0.3); Eosinophils Percent Auto 1.2 % (0-4.4); Hemoglobin 12.6 g/dL (14.0-18.0); Immature Granulocyte Absolute 0.02 K/mm3 (0.00-0.031); Immature Granulocyte Percent A 0.2 % (0-0.5); Lymphocytes Absolute Auto 1.27 K/mm3 (0.9-3.2); Lymphocytes Percent Auto 15.7 % (18.3-44.2); Mean Corpuscular HGB Conc 32.3 g/dl (32-36); Mean Corpuscular Hemoglobin 29.8 pg (26-34); Mean Corpuscular Volume 92.2 fl (80-100); Mean Platelet Volume 11.7 fl (7.4-10.4); Monocytes Percent Auto 12.8 % (2.6-8.5); Neutrophils Absolute Auto 5.6 K/mm3 (1.3-6.7); Neutrophils Percent Auto 69.7 % (45.5-73.1); Platelet Count Result 171 k/mm3 (150-375); Red Blood Count 4.23 M/mm3 (4.6-6.20); Red Cell Distribution Width 14.1 % (11.5-14.5); White Blood Count 8.1 K/mm3 (4.5-10.0)
[2020-03-11] VITALS (12 sets, daily range): BP systolic 96–119; BP diastolic 54–83; PULSE 61–75; RESP 16–22; TEMP 36.1–36.6; O2SAT 94–99; BMI 26.7
[2020-03-11] LABS: Alveolar/Arterial O2 Gradient 29.1 mmHg; Base Excess ABG -2.9 mEq/l (+/-2.0); Carboxyhemoglobin 0.6 % THb (0-2.0); Fractional Inspired Oxygen 21 %; HCO3 ABG 20.3 mEq/l (22.0-26.0); Methemoglobin ABG 0.2 %THb (0-1.5); Oxygen Content ABG 16.9 %vol (16.0-22.0); Oxygen Saturation ABG 96.7 % (95.0-100.0); Oxyhemoglobin 94.9 % THb (90.0-100.0); PO2 ABG 83.5 mmHg (80.0-100.0); PO2 FiO2 Ratio Arterial Blood 3.98 %; Reduced Hemoglobin 4.3 %THb (0-5.0); Total Hemoglobin 12.6 g/dL (12.0-18.0); pH ABG 7.435 (7.350-7.450)
[2020-03-11 00:02] LABS: Anion Gap 9 mmol/L (8-16); Blood Urea Nitrogen 23 mg/dL (9-20); Calcium 9.6 mg/dL (8.4-10.2); Carbon Dioxide 32 mmol/L (22-30); Chloride 96 mmol/L (98-107); Estimated CRCL calculation 52 ml/min; Estimated Glomerular Filt Rate > 60; Glucose 138 mg/dL (75-110); Potassium 4.5 mmol/L (3.4-5.0); Sodium 137 mmol/L (137-145)
[2020-03-11 00:03] LABS: Device ROOM AIR; Modified Allen's Test Pass; Site Drawn RIGHT RADIAL
--- NOTE | 2020-03-11 00:05 | ECG_ITS ---
Measurements Intervals [place] Rate: 71 P: AL: 0 QRS: -21 QRSD: 114 T: 140 QT: 412 QTc: 450 Interpretive Statements SINUS OR ECTOPIC ATRIAL RHYTHM VENTRCIULAR COUPLET AND VENTRICULAR PREMATURE COMPLEXES INCOMPLETE LEFT BUNDLE BRANCH BLOCK DELAYED PRECORDIAL R/S TRANSITION BORDERLINE ST-T WAVE ABNORMALITY- ANTEROLAT/HIGH LAT LEADS BASELINE WANDER- I, II, AVR, V4-V6 ABNORMAL ECG Electronically Signed On 03-11-2020 8:31:44 CDT by John Dutta D.O.
[2020-03-11 00:11] LABS: NT Pro B Type Natriuretic Pept 7490 PG/ML (5-100)
[2020-03-11] MEDS: FUROSEMIDE INJ 40 MG/4 ML VIAL 20 MG IV PUSH (00:13)
[2020-03-11 00:16] LABS: INR 1.1; Prothrombin Time 14.2 Seconds (11.1-14.7)
[2020-03-11 00:17] LABS: Partial Thromboplastin Time 34.7 SECONDS (22.3-36.8)
[2020-03-11 00:19] LABS: D Dimer 0.42 ug/mL (<0.48)
[2020-03-11 01:58] LABS: Lactic Acid Reflex 1.5 mmol/L (0.7-2.1)
--- NOTE | 2020-03-11 02:55 | PM.IMHP ---
H&P: HPI History of Present Illness Date/Time: 03/11/20 02:55 Chief complaint: Shortness of breath. Narrative: Padmini Amador is a 79-year-old male with coronary artery disease, congestive heart failure, dyslipidemia, type 2 diabetes mellitus who presented to the emergency department late last evening with complaints of shortness of breath. He is known to the hospitalist service and was admitted to us on 02/27/2020 with new onset congestive heart failure with an ejection fraction of 35 to 40% for which he was started on a beta jaya, JUSTINE-inhibitor, and furosemide. He had an ischemic evaluation yesterday per Dr. Burdick, with cardiac catheterization demonstrating multivessel coronary artery disease with severe left ventricular systolic dysfunction. He was discharged from the lift slab operator in the late afternoon and returned home however presented back to the emergency department several hours later due to ongoing and worsening shortness of breath. He has a cough occasionally productive of clear sputum, but he goes on to say that this is been ongoing for approximately 2 months time. He denies chest discomfort and in fact reports that he has never had chest discomfort. He also denies nausea, vomiting, and sweats. No pleuritic pain or palpitations. He denies significant orthopnea, PND, and lower extremity edema. No history of DVT or pulmonary embolism. Review of Systems Review of Systems: Narrative: Twelve systems were reviewed with pertinent positives and negatives as per HPI. No fever, chills, or sweats. No recent cold or flu symptoms. He denies nausea, vomiting, and diarrhea. No dysuria. No pleuritic pain. He denies sick contacts exposure to those positive for COVID-19. Except as documented, all other systems were reviewed and are negative. [facility] Past Medical History Medical History (Updated 03/11/20 @ 03:26 by Gemma Hill PA-C) Benign prostatic hyperplasia Chronic anemia Coronary artery disease Diverticulosis Dyslipidemia Gallstone pancreatitis (~09/2007) GI bleed (~10/2000) Attributed to acute duodenal ulcer. Kidney stones Mild aortic stenosis Pulmonary hypertension Systolic congestive heart failure Type 2 diabetes mellitus Hemoglobin A1c was 6.2% on 12/28/2019. Surgical History Surgical History (Updated 03/11/20 @ 03:22 by Gemma Hill PA-C) History of cardiac catheterization (~03/10/20) History of cholecystectomy History of hernia repair History of lithotripsy (~10/2007) History of lumbar laminectomy (~1998) Family History Family History Father , age 77 Acute myocardial infarction Mother , age 52 Acute myocardial infarction Sibling Acute myocardial infarction Social History Social History (Updated 03/11/20 @ 03:24 by Gemma Hill PA-C) Social History: The patient is and lives with his in [place]. 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 Former smoker. No alcohol or illicit substance abuse. He designates his , Britni Amador, as his surrogate decision maker and he wishes to be a full code. Smoking status: Former smoker Second hand tobacco smoke exposure: No Smoking end date: 05/23/95 Alcohol intake: never Substance use: never Spiritual care concerns: No Meds Home Medications and Allergies Home Medications Medication Instructions Recorded Confirmed Type glimepiride 2 mg tablet 2 mg PO QAM #180 tablet 04/18/19 03/10/20 Rx metformin 1,000 mg tablet 1,000 mg PO BID #180 tablet 04/18/19 03/10/20 Rx pravastatin 40 mg tablet 40 mg PO DAILY #90 tablet 08/13/19 03/10/20 Rx finasteride 5 mg tablet 5 mg PO DAILY #90 tablet 12/11/19 03/10/20 Rx furosemide [Lasix] 40 mg PO DAILY #30 tablet 02/28/20 03/10/20 Rx lisinopril 5 mg PO QAM #30 tablet 02/28/20 03/10/20 Rx metoprolol succinate [Toprol XL] 25 mg PO QAM #30 tablet 02/28/20 03/10/20 Rx tamsulos
--- NOTE | 2020-03-11 02:55 | ADMGEN ---
This patient, Padmini Amador, was admitted to IMU Room 200-01. Patient/family oriented to hospital policies and general routines including ID bracelet, bed and alarms, visiting hours, pain management, procedures, bathroom and other care routines, personal items, smoking policy, room service/diet, and visiting hours. Information on how to activate the Rapid Response Team has been discussed. Patient/Family are encouraged to report perceived risks to care and to ask questions if they do not understand what they are told or what they should do.
[2020-03-11 07:45] LABS: Glucose Point of Care 119 (65-105)
--- NOTE | 2020-03-11 08:20 | PM.CNCAR ---
Assessment and Plan Assessment and plan (1) Acute exacerbation of congestive heart failure: Code(s): I50.9 - Heart failure, unspecified Status: Acute Assessment and Plan: 79 y/o with h/o HTN, DM and newly diagnosed cardiomyopathy which is ischemic per LHC performed yesterday who presents with acute CHF exacerbation LVEDP was elevated. He feels better with IV Lasix. Will continue with 40 mg BID. Will also resume lisinopril and Metoprolol. His troponin peaked at 5. No chest pain or ischemic changes on EKG. Likely type II FL due to increased demand from CHF with subendocardial ischemia with markedly elevated LVEDP. Will start IV heparin Will transfer to [facility] for CT surgery eval and possible CABG Will repeat 2D echo to reassess valvular disease. He had mild to mod MR on last echo and mild . If MR severity worse will consider MATT (2) Non-ST elevation FL (NSTEMI): Code(s): I21.4 - Non-ST elevation (NSTEMI) myocardial infarction Status: Acute Assessment and Plan: Plan as outlined above. No chest pain or ischemic changes on EKG. Start IV heparin (3) Aortic stenosis: Code(s): I35.0 - Nonrheumatic aortic (valve) stenosis Status: Acute History of Present Illness History of Present Illness Consult date/time: 03/11/20 08:20 79 y/o male with h/o HTN, DM, no prior cardiac history up until last month when presented with dyspnea. His echo revealed moderate to severe LV dysfunction with EF 35-40%. Also showed Mild and mild to moderate MR. EKG showed frequent PVC in bigeminy. He was started on BB/JUSTINE and loop diuretics with plan for outpatient ischemic evaluation which he just completed yesterday with elective [facility] that revealed multivessel CAD. His LVEDP was noted to be elevated. He was discharged with plan to arrange for CT surgery consultation as outpatient however he returned to the hospital last evening with shortness of breath. He received IV Lasix and feels better now. His troponin was noted to be elevated at 5. He denies chest pain. EKG shows sinus rhythm with frequent PVCs. Reason For Visit: Shortness of breath. Review of Systems Review of Systems: All systems reviewed & are unremarkable except as noted in HPI and below Constitutional: Constitutional: Denies fatigue and Denies headache(s) Eyes: Eyes: Denies blurry vision ENT: Reports Normal hearing present and Denies headache(s) Cardiovascular: Cardiovascular: Denies chest pain, Denies diaphoresis, Denies pedal edema, Denies leg edema, Denies lightheadedness, Denies palpitations and Denies dyspnea Respiratory: Respiratory: Denies cough and Denies dyspnea Gastrointestinal: Gastrointestinal: Denies abdominal pain Musculoskeletal: Musculoskeletal: Denies back pain Neurologic: Reports Normal hearing present and Denies headache(s) Psychiatric: Psychiatric: Denies anxiety Endocrine: Endocrine: Denies fatigue and Denies palpitations [facility] Past Medical History Medical History (Updated 03/11/20 @ 09:16 by Rafa Simms MD) Benign prostatic hyperplasia Chronic anemia Coronary artery disease Diverticulosis Dyslipidemia Gallstone pancreatitis (~09/2007) GI bleed (~10/2000) Attributed to acute duodenal ulcer. Kidney stones Mild aortic stenosis Pulmonary hypertension Systolic congestive heart failure Type 2 diabetes mellitus Hemoglobin A1c was 6.2% on 12/28/2019. Surgical History Surgical History (Updated 03/11/20 @ 03:22 by Gemma Hill PA-C) History of cardiac catheterization (~03/10/20) History of cholecystectomy History of hernia repair History of lithotripsy (~10/2007) History of lumbar laminectomy (~1998) Family History Family History (Updated 03/11/20 @ 04:03 by Marie Medina RN) Father , age 77 Acute myocardial infarction Mother , age 52 Acute myocardial infarction Diabetes mellitus Sibling Acute myocardial infarction Social History S
[2020-03-11] MEDS: FUROSEMIDE INJ 40 MG/4 ML VIAL IV PUSH (08:48)
[2020-03-11] MEDS: lisinopriL 5 MG TABLET PO (08:56)
[2020-03-11] MEDS: METOPROLOL SUCCINATE EXT REL 25 MG TABCR PO (10:09)
[2020-03-11 12:21] LABS: Glucose Point of Care 162 (65-105)
--- NOTE | 2020-03-11 14:42 | PC.NURSE ---
Pt transferred to [facility] to room S. 403. Report called to DEANA Monteiro @ [phone]. Transported via [facility]
--- NOTE | 2020-03-13 18:41 | PM.TDS ---
Transfer Discharge Sum: Prov Provider Date of admission: 03/11/20 10:03 Primary care physician: Floyd Mckinney MD Admitting clinician: Nate Magallon MD Consults: 03/11/20 01:26 Consult to Physician Routine Comment: Consulting Provider: Jarvis Burdick Reason for consultation: CHF EXACERB, ELEV TROP Has provider been notified: Yes DS: Admitting Diagnosis Admitting Diagnosis Admitting Diagnosis: Shortness of breath. DS: Discharge Diagnosis Discharge Diagnosis (1) Non-ST elevation [place] (NSTEMI): Code(s): I21.4 - Non-ST elevation (NSTEMI) myocardial infarction Status: Acute Assessment and Plan: Patient had mild elevation in his troponin. His catheterization today prior had shown circumflex lesions and diagonal and obtuse marginal lesions that were significant. Seen by Cardiology and transferred to [facility] for coronary artery bypass graft surgery. (2) Acute exacerbation of congestive heart failure: Code(s): I50.9 - Heart failure, unspecified Status: Acute Assessment and Plan: Treated with IV Lasix while here with improvement but probably primarily ischemic in nature and transferred to [facility] for definitive bypass surgery (3) Type 2 diabetes mellitus: Code(s): E11.9 - Type 2 diabetes mellitus without complications Status: Inactive Assessment and Plan: sliding scale insulin while here and no active problem (4) Dyslipidemia: Code(s): E78.5 - Hyperlipidemia, unspecified Status: Inactive Assessment and Plan: continue statin (5) Chronic anemia: Code(s): D64.9 - Anemia, unspecified Status: Inactive Assessment and Plan: hemoglobin 12.5 in stable (6) Benign prostatic hyperplasia: Code(s): N40.0 - Benign prostatic hyperplasia without lower urinary tract symptoms Status: Inactive Assessment and Plan: no voiding issues continue his tamsulosin and finasteride Transfer Discharge Sum: Med Medications Active and Home Medications: Home Medications glimepiride 2 mg tablet 2 mg PO QAM #180 tablet 04/18/19 [Rx Confirmed 03/11/20] metformin 1,000 mg tablet 1,000 mg PO BID #180 tablet 04/18/19 [Rx Confirmed 03/11/20] pravastatin 40 mg tablet 40 mg PO DAILY #90 tablet 08/13/19 [Rx Confirmed 03/11/20] finasteride 5 mg tablet 5 mg PO DAILY #90 tablet 12/11/19 [Rx Confirmed 03/11/20] furosemide [Lasix] 40 mg PO DAILY #30 tablet 02/28/20 [Rx Confirmed 03/11/20] lisinopril 5 mg PO QAM #30 tablet 02/28/20 [Rx Confirmed 03/11/20] metoprolol succinate [Toprol XL] 25 mg PO QAM #30 tablet 02/28/20 [Rx Confirmed 03/11/20] tamsulosin 0.4 mg PO HS #30 cap 02/28/20 [Rx Confirmed 03/11/20] Transfer Discharge Sum: Hosp Hospital Course Hospital course: Padmini Amador is a 79 year old male gentleman with acute on chronic systolic heart failure admitted with the same in found to have non ST elevation myocardial infarction. He had a cardiac catheterization today prior which revealed diagonal, obtuse marginal, and more distal disease. It was felt the be a candidate for bypass graft surgery and was transferred to [facility] for the same. Time Spent with Patient Time attestation: Total time spent providing and/or coordinating transfer services: 35 minutes Exam Narrative: Exam Narrative: condition on discharge blood pressure 104/56 pulse 62 sat 99% on room air afebrile lungs faint crackle left posterior base CV regular rate rhythm with faint systolic ejection murmur abdomen soft nontender extremities without edema good distal pulses he was up with no shortness of breath or chest pain or rest and stable condition for discharge to [facility] for definitive bypass graft surgery DS: Data Data Completed and Pending Labs on day of discharge: Preliminary micro results at discharge 03/11/20 01:37 Blood Culture - Preliminary Blood 02/21
== END 2020-03-11 14:45 | disposition short-term general hospital (02) | DRG 280 ==
LOC: ANHED 03-11 01:50 → ANHIMU 03-11 02:47
PROVIDERS: Physician Assistant; Admitting Provider Internal Medicine; Emergency Provider Emergency Medicine; PCP Internal Medicine; Visit Provider Internal Medicine
DX: I21.4 Non-ST elevation (NSTEMI) myocardial infarction (principal); I50.43 Acute on chronic combined systolic (congestive) and diastolic (congestive) heart failure; I25.10 Atherosclerotic heart disease of native coronary artery without angina pectoris; E11.9 Type 2 diabetes mellitus without complications; E78.5 Hyperlipidemia, unspecified; I25.5 Ischemic cardiomyopathy; D64.9 Anemia, unspecified; N40.0 Benign prostatic hyperplasia without lower urinary tract symptoms; K57.30 Diverticulosis of large intestine without perforation or abscess without bleeding; I35.0 Nonrheumatic aortic (valve) stenosis; Z90.49 Acquired absence of other specified parts of digestive tract; Z87.891 Personal history of nicotine dependence
CPT/HCPCS: 36415; 36600; 80048; 82375; 82805; 83050; 83605; 83880; 84484; 85025; 85380; 85610; 85730; 87040; 93005; 93458; 94640; 96374; 96375; 96376; 99285; A9270; C1769; C1887; C1894; G0378; J0456; J0696; J1644; J1940; J2250; J3010; J7040

== ENCOUNTER 2020-07-24 10:28 | Outpatient (CLI) | payer OTHER, MEDICARE, SELFPAY | END 2020-07-24 10:29 | disposition home or self-care (01) | PROVIDERS: PCP Internal Medicine | DX: Z23 Encounter for immunization (principal) | CPT/HCPCS: 0001A; 91300 ==

== ENCOUNTER 2020-08-14 10:28 | Outpatient (CLI) | payer OTHER, MEDICARE, SELFPAY | END 2020-08-14 10:29 | disposition home or self-care (01) | LOC: ANHCOVIDVC 10:28 | PROVIDERS: PCP Internal Medicine | DX: Z23 Encounter for immunization (principal) | CPT/HCPCS: 0002A; 91300 ==

== ENCOUNTER 2021-03-02 11:09 | Outpatient (CLI) | payer OTHER, SELFPAY ==
[2021-03-02 12:24] LABS: Anion Gap 7 mmol/L (8-16); Blood Urea Nitrogen 15 mg/dL (9-20); Calcium 9.2 mg/dL (8.4-10.2); Carbon Dioxide 29 mmol/L (22-30); Chloride 104 mmol/L (98-107); Estimated Glomerular Filt Rate > 60; Glucose 98 mg/dL (65-110); Potassium 5.1 mmol/L (3.4-5.0); Sodium 140 mmol/L (137-145)
== END 2021-03-02 11:10 | disposition home or self-care (01) ==
LOC: ANHLAB 11:12
PROVIDERS: PCP Internal Medicine; Visit Provider Specialist
DX: I25.10 Atherosclerotic heart disease of native coronary artery without angina pectoris (principal); I10 Essential (primary) hypertension
CPT/HCPCS: 36415; 80048

== ENCOUNTER → 2021-08-18 01:50 | Outpatient (CLI) | payer OTHER, SELFPAY ==
[2021-08-18 11:23] LABS: Influenza A QL RT-PCR Negative (Negative); Influenza B QL RT-PCR Negative (Negative); SARS-CoV-2 RNA PCR Negative
== END ==
PROVIDERS: PCP Internal Medicine; Visit Provider Internal Medicine
DX: R05.9 Cough, unspecified (principal); R09.89 Other specified symptoms and signs involving the circulatory and respiratory systems; Z20.822 Contact with and (suspected) exposure to COVID-19
CPT/HCPCS: 87502; C9803; U0003; U0005

== ENCOUNTER 2022-09-07 08:33 | Outpatient (CLI) | payer OTHER, SELFPAY ==
[2022-09-07 21:00] LABS: Hemoglobin A1C 6.5 % (<5.7)
[2022-09-07 21:37] LABS: Creatinine Urine 17.7 mg/dL
[2022-09-07 22:22] LABS: MALB Creatinine Ratio 33.9 mg/g (0-30); Microalbumin Urine Random < 6.0 mg/L (0-16.7)
== END 2022-09-07 08:34 | disposition home or self-care (01) ==
LOC: ANHGOSHLAB 08:34
PROVIDERS: PCP Family Medicine; Visit Provider Family Medicine
DX: E11.9 Type 2 diabetes mellitus without complications (principal); I10 Essential (primary) hypertension
CPT/HCPCS: 36415; 82043; 83036

== ENCOUNTER 2022-09-23 08:00 | Outpatient (NON) | payer OTHER, SELFPAY | END 2022-09-23 08:01 | disposition home or self-care (01) | LOC: ANHLAB 09-24 15:14 | PROVIDERS: PCP Family Medicine; Visit Provider Nurse Practitioner | DX: L57.0 Actinic keratosis (principal) | CPT/HCPCS: 88305; 88312; 88342 ==

== ENCOUNTER 2022-11-30 08:24 | Outpatient (CLI) | payer OTHER, SELFPAY ==
[2022-11-30 20:36] LABS: Alanine Aminotransferase 22 U/L (6-50); Albumin Level 4.3 g/dL (3.5-5.1); Alkaline Phosphatase 44 U/L (38-126); Anion Gap 4 mmol/L (8-16); Aspartate Amino Transferase 47 U/L (17-59); Bilirubin,Total 1.2 mg/dL (0.2-1.3); Blood Urea Nitrogen 20 mg/dL (9-20); Carbon Dioxide 32 mmol/L (22-30); Chloride 99 mmol/L (98-107); Cholesterol 147 mg/dL (0-200); Estimated Glomerular Filt Rate > 60; Glucose 109 mg/dL (65-110); HDL Direct 32 mg/dL; Potassium 4.4 mmol/L (3.4-5.0); Sodium 135 mmol/L (137-145); Triglycerides 148 mg/dL (<150)
[2022-11-30 20:47] LABS: LDL Cholesterol Direct 83 mg/dL
[2022-11-30 21:06] LABS: Prostate Specific Antigen 0.2 ng/mL (< OR = 4.0)
[2022-11-30 21:09] LABS: Hemoglobin A1C 6.4 % (<5.7)
[2022-11-30 21:36] LABS: Creatinine Urine 44.3 mg/dL
[2022-11-30 21:47] LABS: MALB Creatinine Ratio < 13.5 mg/g (0-30); Microalbumin Urine Random < 6.0 mg/L (0-16.7)
== END 2022-11-30 08:25 | disposition home or self-care (01) ==
LOC: ANHGOSHLAB 08:26
PROVIDERS: Internal Medicine; PCP Family Medicine; Visit Provider Family Medicine
DX: Z13.228 Encounter for screening for other metabolic disorders (principal); Z13.220 Encounter for screening for lipoid disorders; Z12.5 Encounter for screening for malignant neoplasm of prostate; E11.9 Type 2 diabetes mellitus without complications
CPT/HCPCS: 36415; 80053; 80061; 82043; 83036; 84153; G0103

== ENCOUNTER 2023-01-03 16:47 | Emergency (ER) | payer OTHER, SELFPAY ==
[2023-01-03 17:03] VITALS: BP 124/62; PULSE 68; RESP 16; TEMP 36.9; O2SAT 99
--- NOTE | 2023-01-03 17:15 | ED.URI ---
HPI - URI/Sore Throat General Chief Complaint: Upper Respiratory Infection Stated Complaint: Covid symptoms Time Seen by Provider: 01/03/23 17:00 Source: patient and RN notes reviewed Mode of arrival: ambulatory Limitations: no limitations History of Present Illness HPI Narrative: Patient presents today complaining of mild cough and rhinorrhea since yesterday. was diagnosed with COVID-19 3 days ago. He has been taking Tylenol and ibuprofen without much relief. Denies shortness of breath, chest pain, fever, or any additional symptoms. He has been vaccinated and boosted for COVID-19. Related Data Home Medications Medication Instructions Recorded Confirmed aspirin 81 mg tablet,delayed 81 mg PO DAILY 03/20/20 01/03/23 release (Adult Low Dose Aspirin) metoprolol succinate 25 mg 12.5 mg PO DAILY 07/01/20 01/03/23 tablet,extended release 24 hr sacubitril 24 mg-valsartan 26 mg 1 tablet PO BID 03/16/22 01/03/23 tablet (Entresto) Allergies Allergy/AdvReac Type Severity Reaction Status Date / Time No Known Allergies Allergy Verified 01/03/23 16:54 Review of Systems Review of Systems: CONSTITUTIONAL: Denies body aches, fever, chills, or sweats. EYES: Denies visual changes, redness, or discharge. ENT: Denies congestion, sore throat, or otalgia.+ rhinorrhea CARDIOVASCULAR: Denies chest pain, palpitations, or edema. RESPIRATORY: Denies dyspnea.+ cough GASTROINTESTINAL: Denies abdominal pain, nausea, vomiting, or diarrhea. GENITOURINARY: Denies dysuria or hematuria. SKIN: Denies rash, itching, or wounds. MUSCULOSKELETAL: Denies back pain, joint pain, or myalgia. NEUROLOGIC: Denies headache, numbness, tingling, or weakness. PSYCH: Denies depression or anxiety. [facility] Past Medical History Medical History Benign prostatic hyperplasia Chronic anemia Coronary artery disease Diverticulosis Dyslipidemia Gallstone pancreatitis (~09/2007) GI bleed (~10/2000) Attributed to acute duodenal ulcer. Kidney stones Mild aortic stenosis Pulmonary hypertension Systolic congestive heart failure Type 2 diabetes mellitus Hemoglobin A1c was 6.2% on 12/28/2019. Surgical History Surgical History History of cardiac catheterization (~03/10/20) History of cholecystectomy History of hernia repair History of lithotripsy (~10/2007) History of lumbar laminectomy (~1998) Family History Family History Father , age 77 Acute myocardial infarction Mother , age 52 Acute myocardial infarction Diabetes mellitus Sibling Acute myocardial infarction Social History Social History Social History: The patient is and lives with his in [place]. 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 Former smoker. No alcohol or illicit substance abuse. He designates his , Britni Amador, as his surrogate decision maker and he wishes to be a full code. Smoking status: Former smoker Second hand tobacco smoke exposure: No Smoking end date: 05/23/80 Alcohol intake: never Substance use: never Substance use type: does not use Lack of Transportation: No Lack of Food: Never True Current Housing: I Have Housing Concerned About Future Housing: No Difficulty Paying Gas/Electric Bills: No Difficulty Paying for Meds: No Currently Unemployed: No Education: High School Diploma/GED Difficulty w/ Childcare or Family Care: No Living arrangements: with family Additional living arrangements comments: Occupation/Education: retired Gender identity (if verbalized by the patient): Male Sexual Orientation (if Verbalized by the Patient): Straight or Heterosexual Spiritual care concerns: No Agree to blood products: Ye
== END 2023-01-03 17:24 | disposition home or self-care (01) ==
PROVIDERS: Emergency Provider Nurse Practitioner; PCP Family Medicine
DX: U07.1 COVID-19 (principal); N40.0 Benign prostatic hyperplasia without lower urinary tract symptoms; I25.10 Atherosclerotic heart disease of native coronary artery without angina pectoris; E78.5 Hyperlipidemia, unspecified; I35.0 Nonrheumatic aortic (valve) stenosis; I11.0 Hypertensive heart disease with heart failure; I50.9 Heart failure, unspecified; E11.9 Type 2 diabetes mellitus without complications; Z87.891 Personal history of nicotine dependence; Z79.82 Long term (current) use of aspirin; E78.00 Pure hypercholesterolemia, unspecified
CPT/HCPCS: 87426; 99213; C9803; G0463

== ENCOUNTER 2023-09-26 11:20 | Outpatient (CLI) | payer OTHER, SELFPAY ==
[2023-09-26 19:39] LABS: Creatinine Urine 115.4 mg/dL
[2023-09-26 19:41] LABS: MALB Creatinine Ratio 7.1 mg/g (0-30); Microalbumin Urine Random 8.2 mg/L (0-16.7)
[2023-09-26 19:59] LABS: Cholesterol 144 mg/dL (0-200); HDL Direct 35 mg/dL; Triglycerides 81 mg/dL (<150)
[2023-09-26 20:10] LABS: LDL Cholesterol Direct 100 mg/dL
[2023-09-26 20:15] LABS: Prostate Specific Antigen 0.3 ng/mL (< OR = 4.0)
[2023-09-26 21:00] LABS: Hemoglobin A1C 5.9 % (<5.7)
== END 2023-09-26 11:21 | disposition home or self-care (01) ==
LOC: ANHGOSHLAB 11:25
PROVIDERS: PCP Family Medicine; Visit Provider Family Medicine
DX: Z12.5 Encounter for screening for malignant neoplasm of prostate (principal); E11.9 Type 2 diabetes mellitus without complications
CPT/HCPCS: 36415; 80061; 82043; 83036; 84153; G0103

== ENCOUNTER 2024-02-02 22:23 | Emergency (ER) | payer OTHER, SELFPAY ==
--- NOTE | ~2024-02-02 | XR_ITS ---
XR chest 2V Ordering provider: Lucian Andujar MD History: 83 years Male with . sob . Comparison: None. FINDINGS: MEDIASTINUM: The cardiac silhouette is not enlarged. Left unipolar pacemaker. Aortic valve Prosthesis is seen. LUNGS: No infiltrates, effusions or pneumothorax. Prominent bronchovascular markings in the lower lobes. Underlying emphysematous changes. OTHER: No free air under the diaphragm. Degenerative spine. IMPRESSION: No acute cardiopulmonary pathology. Reviewed, dictated and finalized at location A.
--- NOTE | 2024-02-02 22:24 | ECG_ITS ---
Test Date: 2024-02-02 22:33:42 Measurements Intervals Ellinger Rate: 73 P: 15 VT: 230 QRS: -22 QRSD: 134 T: 138 QT: 418 QTc: 464 Interpretive Statements SINUS RHYTHM WITH FIRST DEGREE AV BLOCK VENTRICULAR COULET AND VENTRICULAR PREMATURE COMPLEXES INCOMPLETE LEFT BUNDLE BRANCH BLOCK CONSIDER INFERIOR INFARCT, AGE INDETERMINATE BORDERLINE ST-T WAVE ABNORMALITY- LAT/HIGH LAT LEADS BASELINE ARTIFACT- I, II, AVR, AVL, AVF ABNORMAL ECG No previous ECG available for comparison Electronically Signed On 02-03-2024 06:46:33 CDT by John Dutta D.O.
[2024-02-02 22:27] VITALS: BP 121/74; PULSE 73; RESP 16; TEMP 36.6; O2SAT 100
[2024-02-02 22:56] LABS: Basophils Absolute Auto 0.1 K/mm3 (0.0-0.1); Basophils Percent Auto 0.7 % (0.2-1.2); Eosinophils Absolute Auto 0.1 K/mm3 (0-0.3); Eosinophils Percent Auto 1.2 % (0-4.4); Hematocrit 36.5 % (42.0-52.0); Hemoglobin 11.8 g/dL (14.0-18.0); Immature Granulocyte Absolute 0.03 K/mm3 (0.00-0.031); Immature Granulocyte Percent A 0.4 % (0-0.5); Immature Platelet Fraction Pct 9.1 % (0.9-11.2); Lymphocytes Absolute Auto 1.25 K/mm3 (0.9-3.2); Mean Corpuscular HGB Conc 32.3 g/dl (32-36); Mean Corpuscular Hemoglobin 31.2 pg (26-34); Mean Corpuscular Volume 96.6 fl (80-100); Mean Platelet Volume 11.9 fl (7.4-10.4); Monocytes Absolute Auto 0.8 K/mm3 (0.1-0.6); Monocytes Percent Auto 11.3 % (2.6-8.5); Neutrophils Absolute Auto 5.1 K/mm3 (1.3-6.7); Neutrophils Percent Auto 69.4 % (45.5-73.1); Platelet Count Result 154 k/mm3 (150-375); Red Blood Count 3.78 M/mm3 (4.6-6.20); Red Cell Distribution Width 14.6 % (11.5-14.5); White Blood Count 7.3 K/mm3 (4.5-10.0)
[2024-02-02 23:01] LABS: Alanine Aminotransferase 63 U/L (6-50); Alkaline Phosphatase 49 U/L (38-126); Anion Gap 11 mmol/L (4-12); Aspartate Amino Transferase 60 U/L (17-59); Bilirubin,Total 1.5 mg/dL (0.2-1.3); Blood Urea Nitrogen 19 mg/dL (9-20); Calcium 8.8 mg/dL (8.4-10.2); Carbon Dioxide 25 mmol/L (22-30); Chloride 98 mmol/L (98-107); Estimated CRCL calculation 54 ml/min; Estimated Glomerular Filt Rate > 60; Glucose 161 mg/dL (65-110); Potassium 4.5 mmol/L (3.4-5.0); Sodium 134 mmol/L (137-145)
[2024-02-02 23:26] LABS: Influenza A QL RT-PCR Negative (Negative); Influenza B QL RT-PCR Negative (Negative); RSV RNA, RT-PCR Negative (Negative); SARS-CoV-2 RNA PCR Negative (Negative)
[2024-02-03] VITALS (7 sets, daily range): BP systolic 102–112; BP diastolic 68–84; PULSE 58–67; RESP 15–23; TEMP 36.6; O2SAT 97–100
[2024-02-03] MEDS: FUROSEMIDE INJ 40 MG/4 ML VIAL 20 MG IV PUSH (07:53)
--- NOTE | 2024-02-03 08:14 | ED.SOB ---
HPI - SOB/Dyspnea General Chief Complaint: Shortness of Breath/Dyspnea Stated Complaint: difficulty breathing Time Seen by Provider: 02/03/24 07:05 History of Present Illness HPI Narrative: Patient is an 83-year-old male who presents to the ER with shortness of breath. Began yesterday evening. It worsened with lying down flat. No chest pain. Associated with increased leg edema that he noticed yesterday as well. Patient takes Lasix every other day. He took a dose last night and came to the ER. He now feels markedly improved. No fevers or chills or sweats. No productive cough. Related Data Home Medications Medication Instructions Recorded Confirmed aspirin 81 mg tablet,delayed 81 mg PO DAILY 03/20/20 09/26/23 release (Adult Low Dose Aspirin) metoprolol succinate 25 mg 12.5 mg PO DAILY 07/01/20 09/26/23 tablet,extended release 24 hr sacubitril 24 mg-valsartan 26 mg 1 tablet PO BID 03/16/22 09/26/23 tablet (Entresto) Allergies Allergy/AdvReac Type Severity Reaction Status Date / Time No Known Allergies Allergy Verified 09/26/23 11:26 Review of Systems Review of Systems: All systems reviewed & are unremarkable except as noted in HPI and below Constitutional: Constitutional: Reports no additional constitutional complaints ENT: Reports system reviewed and no additional complaints, except as documented Cardiovascular: Cardiovascular: Reports no additional cardiovascular complaints Respiratory: Respiratory: Denies cough, Reports dyspnea and Denies wheezing Comments: Orthopnea Gastrointestinal: Gastrointestinal: Reports no additional gastrointestinal complaints [facility] Past Medical History Medical History Benign prostatic hyperplasia Chronic anemia Coronary artery disease Diverticulosis Dyslipidemia Gallstone pancreatitis (~09/2007) GI bleed (~10/2000) Attributed to acute duodenal ulcer. Kidney stones Mild aortic stenosis Pulmonary hypertension Systolic congestive heart failure Type 2 diabetes mellitus Hemoglobin A1c was 6.2% on 12/28/2019. Surgical History Surgical History History of cardiac catheterization (~03/10/20) History of cholecystectomy History of hernia repair History of lithotripsy (~10/2007) History of lumbar laminectomy (~1998) Family History Family History Father , age 77 Acute myocardial infarction Mother , age 52 Acute myocardial infarction Diabetes mellitus Sibling Acute myocardial infarction Social History Social History Social History: The patient is and lives with his in [place]. 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 No alcohol or illicit substance abuse. He designates his , Britni Amador, as his surrogate decision maker and he wishes to be a full code. Smoking status: Former smoker Second hand tobacco smoke exposure: No Smoking end date: 05/23/80 Alcohol intake: never Substance use: never Substance use type: does not use Lack of Transportation: No Lack of Food: Never True Current Housing: I Have Housing Concerned About Future Housing: No Difficulty Paying Gas/Electric Bills: No Difficulty Paying for Meds: No Currently Unemployed: No Education: High School Diploma/GED Difficulty w/ Childcare or Family Care: No Living arrangements: with family Additional living arrangements comments: Occupation/Education: retired Gender identity (if verbalized by the patient): Male Sexual Orientation (if Verbalized by the Patient): Straight or Heterosexual Spiritual care concerns: No Agree to blood products: Yes Exam Narrative: GENERAL: Well-appearing, well-nourished, and in no acute distress. HEAD: Normocephalic, a
[2024-02-03 08:37] LABS: NT Pro B Type Natriuretic Pept 10600 pg/mL (19.9-100)
[2024-02-03] MEDS: LEVALBUTEROL NEB 1.25 MG/3 ML INHALATION (09:26)
--- NOTE | 2024-02-03 09:46 | PC.NURSE ---
Ambulated pt in hallway while monitoring Sp02. Sp02 maintained at 90% while ambulating.
== END 2024-02-03 10:07 | disposition home or self-care (01) ==
PROVIDERS: Emergency Medicine; Emergency Provider Emergency Medicine; PCP Family Medicine
DX: I50.23 Acute on chronic systolic (congestive) heart failure (principal); Z20.822 Contact with and (suspected) exposure to COVID-19; I25.10 Atherosclerotic heart disease of native coronary artery without angina pectoris; I27.20 Pulmonary hypertension, unspecified; I35.0 Nonrheumatic aortic (valve) stenosis; E78.5 Hyperlipidemia, unspecified; E11.9 Type 2 diabetes mellitus without complications; N40.0 Benign prostatic hyperplasia without lower urinary tract symptoms; D64.9 Anemia, unspecified; Z87.442 Personal history of urinary calculi; Z87.891 Personal history of nicotine dependence; Z90.49 Acquired absence of other specified parts of digestive tract; Z79.82 Long term (current) use of aspirin; Z79.84 Long term (current) use of oral hypoglycemic drugs; Z79.899 Other long term (current) drug therapy; Z79.02 Long term (current) use of antithrombotics/antiplatelets; I44.0 Atrioventricular block, first degree; R00.8 Other abnormalities of heart beat; I49.3 Ventricular premature depolarization; I44.7 Left bundle-branch block, unspecified; R94.31 Abnormal electrocardiogram [ECG] [EKG]
CPT/HCPCS: 36415; 71046; 80053; 83880; 85025; 85055; 87637; 93005; 94640; 96374; 99284; J1940

== ENCOUNTER 2024-03-20 06:37 | Outpatient (CLI) | payer OTHER, SELFPAY ==
--- NOTE | ~2024-03-20 | CT_ITS ---
CT of the Abdomen and Pelvis: Indication: Abdominal pain Technique: 2.5 mm axial scans were obtained through the abdomen and pelvis following intravenous adm inistration of 100 cc of Omnipaque 350. Dose reduction technique was used on this scan by utilizing a utomated exposure control and iterative reconstruction technique. The dose-length product (DLP) was 8 64.88 mGy-cm. Findings: Scans through the lung bases demonstrate mild diffuse interstitial thickening, with appear ance suggestive interstitial edema. Minimal right pleural effusion present. There is diffuse hepatic steatosis. Cholecystectomy clips are present. The spleen, pancreas, adrenals and kidneys are within normal limits. There are atherosclerotic calcifications of the aorta. No lymp hadenopathy. No bowel obstruction or bowel wall thickening. There is no evidence to suggest acute appendicitis. Images through the pelvis were performed. Urinary bladder unremarkable. No pelvic mass seen. No ascit es. Impression: Minimal bibasilar interstitial pulmonary edema with minimal right pleural effusion. Diffuse hepatic steatosis. Reviewed, dictated and finalized at [facility]. Impression: Minimal bibasilar interstitial pulmonary edema with minimal right pleural effus ion. Diffuse hepatic steatosis.
[2024-03-20 07:13] LABS: Estimated Glomerular Filt Rate > 60
== END 2024-03-20 06:38 | disposition home or self-care (01) ==
PROVIDERS: PCP Family Medicine; Visit Provider Family Medicine
DX: K76.0 Fatty (change of) liver, not elsewhere classified (principal); R10.9 Unspecified abdominal pain
CPT/HCPCS: 74177; Q9967

== ENCOUNTER 2024-05-15 00:20 | Day surgery (SDC) | payer OTHER, SELFPAY ==
[2024-05-04 13:22] VITALS: BMI 27.6
--- NOTE | 2024-05-08 15:40 | PC.NURSE ---
Spoke with patient and spouse regarding medication Plavix. They both verbalized understanding that the last dose is to be taken on 05/10/2024 and the Endoscopist will instruct them when to restart after the procedure.
--- NOTE | 2024-05-09 08:55 | SUR.PREOP ---
05/08 9 am chart reviewed with Dr. Crews anesthesiologist regarding pt's echo and cardiac status. Dr. Crews agreed to proceed with pt's procedure.
--- NOTE | 2024-05-15 07:39 | P.PNAN_ITS ---
Anes - Initial Pre Proc Eval Procedure: Operation Date: 05/15/24 12:30 Proposed Procedures p Esophagogastroduodenoscopy - Benedicto Plasencia MD Date/Time: 05/15/24 07:39 Surgeon: Benedicto Plasencia MD Pre Op Diagnosis: epigastric pain, hx of other diseases of digestive Patient Data Age: 83 Gender: M Height: 1.8 m Weight: 90.07 kg Allergies Allergy/AdvReac Type Severity Reaction Status Date / Time No Known Allergies Allergy Verified 05/15/24 08:59 Home Medications ?Medication ?Instructions ?Recorded ?Confirmed ?Type aspirin 81 mg tablet,delayed 81 mg PO DAILY 03/20/20 05/15/24 History release (Adult Low Dose Aspirin) metoprolol succinate 25 mg 12.5 mg PO DAILY 07/01/20 05/15/24 History tablet,extended release 24 hr sacubitril 24 mg-valsartan 26 mg 1 tablet PO BID 03/16/22 05/15/24 History tablet (Entresto) blood-glucose meter (Contour Next #1 ea 04/12/23 03/13/24 Rx EZ Meter) blood sugar diagnostic (Contour #100 ea 08/10/23 03/13/24 Rx Next Test Strips) pravastatin 40 mg tablet 40 mg PO DAILY #90 tabs 11/22/23 05/15/24 Rx finasteride 5 mg tablet 5 mg PO DAILY #90 tabs 12/05/23 05/15/24 Rx clopidogrel 75 mg tablet 75 mg PO DAILY #90 tabs 01/02/24 05/15/24 Rx tamsulosin 0.4 mg capsule 0.4 mg PO HS #90 caps 01/03/24 05/15/24 Rx metformin 1,000 mg tablet 1,000 mg PO BID #180 tabs 01/09/24 05/15/24 Rx pantoprazole 20 mg tablet,delayed 20 mg PO QAM #90 tabs 03/06/24 05/15/24 Rx release furosemide 20 mg tablet 20 mg PO DAILY #90 tabs 03/26/24 05/15/24 Rx glimepiride 2 mg tablet 2 mg PO QAM #180 tabs 04/06/24 05/15/24 Rx Patient hx anesthesia problems: none Family hx anesthesia problems: none Results Review: All pre-operative results and documents have been reviewed as part of the pre-operative evaluation. [facility] Past Medical History Medical History (Updated 05/15/24 @ 07:40 by Obey Davis DO) Gallstone pancreatitis (~09/2007) GI bleed (~10/2000) Attributed to acute duodenal ulcer. Chronic anemia Type 2 diabetes mellitus Hemoglobin A1c was 6.2% on 12/28/2019. Kidney stones Pulmonary hypertension Mild aortic stenosis Systolic congestive heart failure EF 35-40% Coronary artery disease Diverticulosis Dyslipidemia Benign prostatic hyperplasia Surgical History Surgical History (Updated 05/15/24 @ 07:40 by Obey Davis DO) History of gastric bypass History of lithotripsy (~10/2007) History of lumbar laminectomy (~1998) History of hernia repair History of cardiac catheterization (~03/10/20) History of cholecystectomy Family History Family History Father , age 77 Acute myocardial infarction Mother , age 52 Acute myocardial infarction Diabetes mellitus Sibling Acute myocardial infarction Social History Social History Social History: The patient is and lives with his in [place]. 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 No alcohol or illicit substance abuse. He designates his , Britni Amador, as his surrogate decision maker and he wishes to be a full code. Smoking status: Former smoker Second hand tobacco smoke exposure: No Smoking end date: 05/23/80 Alcohol intake: never Substance use: never Substance use type: does not use Lack of Transportation: No Lack of Food: Never True Current Housing: I Have Housing Concerned About Future Housing: No Difficulty Paying Gas/Electric Bills: No Difficulty Paying for Meds: No Currently Unemployed: No Education: High School Diploma/GED Difficulty w/ Childcare or Family Care: No Living arrangements: with family Additional living arrangements comments: Occupation/Education: retired Gender identity (if verbalized by the patient): Male Sexual Orientation (if Verbalized by the Patient): Straight or Heterosexual Spiritual care concerns: No Agree to blood products: Yes Anes - Eval Final PreProcedure Day of Procedure 05/15/24 07:39 Patient weight: overweight Heart: regular rate and rhythm Lungs: clear to auscultation Airway: Mallampati scale class II Neurological: alert and oriented Last oral intake: >/= 8 hours ASA classification: IV Emergent: no Anesthetic plan: proceed Anesthesia type and monitoring: general GIVS and standard monitoring Results Review: All pre-operative results and documents have been reviewed as part of the pre- operative evaluation. Informed Consent: The patient's anesthetic plan and its attendant risks and benefits were discussed with the patient/family/POA. Questions were solicited and answers provided to the satisfaction of the patient/family/POA.
[2024-05-15 09:13] VITALS: BP 108/92; PULSE 80; RESP 19; TEMP 36.2; O2SAT 98
[2024-05-15] MEDS: LACTATED RINGERS 1,000 ML 150 ML IV CONT (09:17)
[2024-05-15] MEDS: GENTAMICIN 80MG/SOD CHL 50 ML 80 MG/50 ML BAG 100 MG IVPB (09:19)
[2024-05-15 09:23] LABS: Glucose Point of Care 128 mg/dl (65-105)
[2024-05-15] MEDS: AMPICILLIN 2 GM/NS 100 ML 2 GM/100 ML BAG IVPB (09:24)
--- NOTE | 2024-05-15 09:35 | PM.HPGS ---
History of Present Illness History of Present Illness Consent: Risks, benefits, and alternatives have been discussed and questions answered. Patient agrees to proceed with procedure. Chief complaint: epigastric pain, hx of other diseases of digestive Narrative: Padmini Amador is a 83 year old male with intermittent abdominal pain worse after bending over, ct scan no major findings, had EGD about 20 years with had bleeding gastric ulcer. Review of Systems Review of Systems: All systems reviewed & are unremarkable except as noted in HPI and below PMFSH Past Medical History Medical History (Updated 05/15/24 @ 09:37 by Benedicto Plasencia MD) Upper abdominal pain Gallstone pancreatitis (~09/2007) GI bleed (~10/2000) Attributed to acute duodenal ulcer. Chronic anemia Type 2 diabetes mellitus Hemoglobin A1c was 6.2% on 12/28/2019. Kidney stones Pulmonary hypertension Mild aortic stenosis Systolic congestive heart failure EF 35-40% Coronary artery disease Diverticulosis Dyslipidemia Benign prostatic hyperplasia Surgical History Surgical History (Updated 05/15/24 @ 07:40 by Obey Davis DO) History of gastric bypass History of lithotripsy (~10/2007) History of lumbar laminectomy (~1998) History of hernia repair History of cardiac catheterization (~03/10/20) History of cholecystectomy Family History Family History Father , age 77 Acute myocardial infarction Mother , age 52 Acute myocardial infarction Diabetes mellitus Sibling Acute myocardial infarction Social History Social History Social History: The patient is and lives with his in [place]. 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 No alcohol or illicit substance abuse. He designates his , Britni Amador, as his surrogate decision maker and he wishes to be a full code. Smoking status: Former smoker Second hand tobacco smoke exposure: No Smoking end date: 05/23/80 Alcohol intake: never Substance use: never Substance use type: does not use Lack of Transportation: No Lack of Food: Never True Current Housing: I Have Housing Concerned About Future Housing: No Difficulty Paying Gas/Electric Bills: No Difficulty Paying for Meds: No Currently Unemployed: No Education: High School Diploma/GED Difficulty w/ Childcare or Family Care: No Living arrangements: with family Additional living arrangements comments: Occupation/Education: retired Gender identity (if verbalized by the patient): Male Sexual Orientation (if Verbalized by the Patient): Straight or Heterosexual Spiritual care concerns: No Agree to blood products: Yes Meds Home Medications and Allergies Home Medications ?Medication ?Instructions ?Recorded ?Confirmed ?Type aspirin 81 mg tablet,delayed 81 mg PO DAILY 03/20/20 05/15/24 History release (Adult Low Dose Aspirin) metoprolol succinate 25 mg 12.5 mg PO DAILY 07/01/20 05/15/24 History tablet,extended release 24 hr sacubitril 24 mg-valsartan 26 mg 1 tablet PO BID 03/16/22 05/15/24 History tablet (Entresto) blood-glucose meter (Contour Next #1 ea 04/12/23 03/13/24 Rx EZ Meter) blood sugar diagnostic (Contour #100 ea 08/10/23 03/13/24 Rx Next Test Strips) pravastatin 40 mg tablet 40 mg PO DAILY #90 tabs 11/22/23 05/15/24 Rx finasteride 5 mg tablet 5 mg PO DAILY #90 tabs 12/05/23 05/15/24 Rx clopidogrel 75 mg tablet 75 mg PO DAILY #90 tabs 01/02/24 05/15/24 Rx tamsulosin 0.4 mg capsule 0.4 mg PO HS #90 caps 01/03/24 05/15/24 Rx metformin 1,000 mg tablet 1,000 mg PO BID #180 tabs 01/09/24 05/15/24 Rx pantoprazole 20 mg tablet,delayed 20 mg PO QAM #90 tabs 03/06/24 05/15/24 Rx release furosemide 20 mg tablet 20 mg PO DAILY #90 tabs 03/26/24 05/15/24 Rx glimepiride 2 mg tablet 2 mg PO QAM #180 tabs 04/06/24 05/15/24 Rx Allergies Allergy/AdvReac Type Severity Reaction Status Date / Time No Known Allergies Allergy Verified 05/15/24 08:59 Vital Signs Vital Signs - 24 hr 05/15/24 09:13 Temperature 97.1 F L Pulse Rate 80 Respiratory Rate 19 Blood Pressure 108/92 H Pulse Oximetry 98 Oxygen Delivery Room Air Exam Const: General: comfortable and no acute distress HENMT: Face/Nose/Sinus: Normal nares present Eyes: General: appearance normal, both eyes and all related structures Neck: Neck: no JVD Resp: Auscultation: clear to auscultation bilaterally Cardio: Rate: regular rate Rhythm: regular rhythm GI: Inspection: non-distended GI Palp: Yes Soft to palpation Skin: General skin exam: normal color Neuro: General: gait normal Speech: normal speech Extrem: General: normal to inspection Psych: Mental Status: mental status grossly normal Assessment and Plan Assessment and plan (1) Upper abdominal pain: Code(s): R10.10 - Upper abdominal pain, unspecified Status: Acute Assessment and Plan: egd with bx
[2024-05-15 09:43] VITALS: BP 121/75; PULSE 92; RESP 21; O2SAT 98
[2024-05-15 09:53] VITALS: BP 108/66; PULSE 81; RESP 22; O2SAT 98
[2024-05-15 10:03] VITALS: BP 99/68; PULSE 76; RESP 20; O2SAT 98
--- OUTSIDE RECORDS SUMMARY | 2024-05-22 02:12 | XMS_ITS | Referral Summary ---
Author Organization [facility] Address [address] [place] [address] Care Team Providers Care Area Representative Name Role Phone Floyd Mckinney MD Primary Care Provider + [phone] Source Comments [facility],non-owned Affiliates and Associated Physician Practices is amultiple site organization consisting of ambulatory clinics and hospital sitesin [place], [place], [place] and [place]. This disclosure is being madepursuant to the Care Everywhere program and may not contain all information available regarding this patient. Last updated 18.[facility] Allergies No known active allergies Medications * Be aware that medications may not be up to date on this document. Alwaysverify current medications with the patient. Medication Sig Dispensed Refills Start Date End Date Status tamsulosin (FLOMAX) 0.4 MG capsule Take 0.4 mg by mouth once daily At the same time every day after a meal. Active metFORMIN CR 24hr modified (GLUMETZA) 1000 MG (MOD) tablet Take 1,000 mg by mouth 2 times daily Active aspirin (ASPIRIN) 81 MG chew tablet Take 1 tablet by mouth once daily 30 tablet 11 03/19/2020 Active furosemide (LASIX) 20 MG tablet Take 1 tablet by mouth once daily 30 tablet 3 03/19/2020 Active clopidogrel (PLAVIX) 75 MG tablet Take 1 tablet by mouth once daily 30 tablet 11 03/19/2020 Active SHAKA CONTOUR NEXT TEST test strip 04/12/2020 Active metoprolol succinate XL 24hr (TOPROL XL) 25 MG tablet Take 25 mg by mouth once daily 04/14/2020 Active finasteride (PROSCAR) 5 MG tablet Take 5 mg by mouth once daily 06/14/2020 Active lisinopril (PRINIVIL;ZESTRIL) 5 MG tabletIndications:Cl ass 2 congestive heart failure, chronic, combined (HCC),NSTEMI (non-ST elevated myocardial infarction) (HCC),Ischemic cardiomyopathy,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) Take 1 (one) tablet by mouth once daily 90 tablet 3 06/24/2020 Active glimepiride (AMARYL) 2 MG tablet Take 2 mg by mouth daily with breakfast Active pravastatin (PRAVACHOL) 40 MG tablet Take 40 mg by mouth once daily 03/13/2021 Active ENTRESTO 24-26 MG tablet Take 1 tablet by mouth 2 times daily 02/27/2021 Active Active Problems Problem Noted Date Diagnosed Date 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 (FLUZONE HIGH-DOSE QUADRIVALENT; 65Y+), 0.7 ML (HD-IIV4) 01/22/2020 Social History Tobacco Use Types Packs/Day Years Used Date Smoking Tobacco: Never Smokeless Tobacco: Never Alcohol Use Standard Drinks/Week Comments Never 0 (1 standard drink = 0.6 oz pur e alcohol) AUDIT-C Answer Date Recorded Q1: How often do you have a drink containing alc ohol? Never 03/15/2020 Average Number of Drinks Not on file 020 Frequency of Binge Drinking Not on file 02/21 Sex and Gender Information Value Date Recorded Sex Assigned at Not on file Gender Identity Not on file Sexual Orientation Not on file Last Filed Vital Signs Vital Sign Reading Time Taken Comments Blood Pressure 130/78 08/05/2020 10:41 AM CDT Pulse 64 08/05/2020 10:41 AM CDT Temperature 35.6 ??C (96 ??F) 08/05/2020 10:41 AM CDT Respiratory Rate 15 04/30/2020 8:00 AM [facility] Oxygen Saturation 98% 08/05/2020 10:41 AM CDT Inhaled Oxygen Concentration - - Weight 86.2 kg (190 lb) 08/05/2020 10:41 AM CDT Height 180.3 cm (5' 11 ) 08/05/2020 10:41 AM CDT Body Mass Index 26.5 08/05/2020 10:41 AM CDT Functional Status Functional Status Response Date of Assess ment Is person deaf or have serious hearing difficult y? No 03/19/2020 Is person blind or have serious difficulty seein g? No 03/19/2020 Does person have serious dif ficulty walking/climbing stairs? No 03/19/2020 Does person have difficulty dressing/bathing? No 03/19/2020 Does person have difficulty doing errands alone? No 03/19/2020 Cognitive Status Response Date of Assessm ent Does person have difficulty concentrating/remembering/making decisions? No 03/19/2020 Plan of Treatment Not on file Medical Devices Implanted Type Area Ex Assistant/Program Director Device Identifier Shelf Expiration Date Model / Serial / Lot Valve Aor Evolut Pro+ 34mm - [id number] Implanted:Qty: 1 on 04/29/2020 at [facility] Heart Valve N/A: Aortic Valve Medtronic Ave 05/29/2021 EVPROPLUS -34US / [id number] / Description:Implanted by: Mitul Dumont MD Sys Cor Stent Xience Srr 2.5mm 15mm Rap Implanted:Qty: 1 on 03/18/2020 by Oliver Biggs MD at [facility] Coronary [employer] 10/21/2020 [id number] Description:distal CIRC Sys Cor Stent Xience Srr 3.5mm 12mm Rap Implanted:Qty: 1 on 03/18/2020 by Oliver Biggs MD at [facility] Coronary [employer] 07/08/2021 [id number] Description:OM 2 Sys Cor Stent Xience Srr 2.25mm 12mm Rap Implanted:Qty: 1 on 03/18/2020 by Oliver Biggs MD at [facility] Coronary [employer] 10/15/2020 [id number] Description:OM 2 Procedures Procedure Name Priority Date/Time Associated Diagnosis Comments BASIC METABOLIC PANEL (CALCIUM TOTAL) AM Draw 04/30/2020 3:50 AM [facility] 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, without long-term current use of insulin (HCC) HEMOGLOBIN A1C Routine 03/15/2020 6:30 AM CDT from Last 3 Months or Most Recently Relevant to Health Maintenance Results * (ABNORMAL) BASIC METABOLIC PANEL (CALCIUM TOTAL) (04/30/2020 3:50 AM [facility]) BUN 14 7 - 26 mg/dL 04/30/2020 4:36 AM [facility] Creatinine 0.8 0.6 - 1.2 mg/dL 04/30/2020 4:36 AM [facility] Sodium 135(L) 136 - 145 mmol/L 04/30/2020 4:36 AM [facility] Potassium 4.1 3.5 - 4.5 mmol/L 04/30/2020 4:36 AM [facility] Chloride 102 98 - 107 mmol/L 04/30/2020 4:36 AM [facility] CO2 26 22 - 29 mmol/L 04/30/2020 4:36 AM [facility] Glucose 107 70 - 115 mg/dL 04/30/2020 4:36 AM [facility] Calcium 7.9(L) 8.4 - 10.2 mg/dL 04/30/2020 4:36 AM [facility] Anion Gap 11 8 - 18 04/30/2020 4:36 AM [facility] BUN/Creatinine Ratio 18 7 - 23 04/30/2020 4:36 AM [facility] Osmolality Calculated 281 270 - 300 mOsm/kg 04/30/2020 4:36 AM [facility] eGFR >60 >60 mL/min/1.7 3 m2 04/30/2020 4:36 AM [facility] Blood BLOOD SPECIMEN / Unknown Venipuncture / Unknown 04/30/2020 3:50 AM [facility] 04/30/2020 4:07 AM [facility] Kaylee Mccain 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[employer] LAB - CHEMISTRY ORDERABLES Performing Organization Address City/[facility]/ZIP Co de Phone Number [facility] [address] [place] [address], [facility] [phone] * (ABNORMAL) HEMOGLOBIN A1C (03/15/2020 6:30 AM CDT) Hemoglobin A1c 6.5(H) 4.4 - 6.3 % 03/15/2020 1:19 PM CDT [facility] Estimated Average Glucose 140 mg/dL 03/15/2020 1:19 PM CDT [facility] Comment: HbA1c Interpretation: Treatment target values recommended by ADA and other clinical organizations should be used to evaluate metabolic control in patients. Treatment Target Values: Normal : < 5.7% Pre-diabetes: 5.7-6.4% Diabetes: Equal to or greater than 6.5% Reference: [place] Diabetes Association Standards of Care in Diabetes -2014 In patients 70 years and older consider HbA1c target range of 7.0-7.5% Reference: ??Diabetes Mellitus in Older People: Position Statement on behalf of the International Association of Gerontology and Geriatrics (IAGG), the Diabetes Working Democrat for Older People (EDWPOP), and the International Task Force of Experts in Diabetes. ??Nathan Quiñones, et al. J [place] [employer] Association. 2012 Test results diagnostic of diabetes should be repeated for confirmation. The Sebia Capillary 2 assay for the measurement of HbA1c is a National Glycohemoglobin Standardization Program (NGSP)certified method. Blood BLOOD SPECIMEN / Unknown Lab Venipuncture / Unknown 03/15/2020 6:30 AM CDT 03/15/2020 6:50 AM CDT Keena Cook MD LAB - CHEMISTRY [facility]AND [facility]A Performing Organization Address City/[facility]/ZIP Co de Phone Number [facility] [address] [place] [address], [place] [phone] from Last 3 Months or Most Recently Relevant to Health Maintenance Advance Directives * Full Code (Latest Code Status on File) Date Activated Date Inactivated Comments 04/29/2020 1:42 PM 04/30/2020 6:20 PM * Full Code Date Activated Date Inactivated Comments 03/14/2020 11:00 PM 03/19/2020 8:59 PM Care Teams Area Representative Relationship Specialty Start Date End Date Floyd Mckinney MD [address] [facility] [place] [address] PCP - General Internal Medicine 04/29/20
--- OUTSIDE RECORDS SUMMARY | 2024-05-22 02:12 | XMS_ITS | Data Portability ---
Author Organization [place] - [facility] OFFICE Address [address] [place] [address] Care Team Providers Care Claim Service Representative Name Role Phone JENNIFER PALOMARES Primary Care Provider JENNIFER PALOMARES Referring Provider JENNIFER PALOMARES Primary Care Provider Assessment Encounter Date Assessment Date Assessment LastModified by Organization Details LastModified Time 08/31/2022 08/31/2022 This document was scribed by HI Clark Not available 08/31/2022 10:18:04 12/07/2022 12/07/2022 This document was scribed by HI Clark esto Not available 12/01/2022 08:38:07 08/23/2023 08/23/2023 Patient Examined by HI Clark, Also Documentation reviewed and approved by supervising physician [email or web address] Not available 08/23/2023 12:46:41 Plan of Treatment Reminders Order Date Submit Date Provider Last Modified By Organization Details Last Modified Time Details Appointments [facility] PATIENT DETAILED 2024 02:30P M Jarvis Burdick MD Not available Not available Not available PACER 2024 10:30A M Pacemaker Schedule Not available Not available Not available Lab None recorded . Referral None recorded . Procedures None recorded . Surgeries None recorded . Imaging None recorded . Medication Orders pravasta tin 80 mg tablet 2023 024 [facility] [id number] [facility], [address] , [place], [address], 02/21/2024 17:25:45 Patient TargetsNo targets recorded. Patient Instructions Encounter Date Encounter Id Patient Instructions Last Modified By Organization Details Last Modified Time 08/31/2022 [id number] Exercise advised Low cholesterol diet advised Low sodium diet advised. [email or web address] Not available 08/31/2022 10:23:46 12/07/2022 [id number] Exercise advised Low cholesterol diet advised Low sodium diet advised. [email or web address] Not available 12/07/2022 10:16:21 03/08/2023 [id number] Weight loss 20??pounds Exercise advised Low cholesterol diet advised Low sodium diet advised. [email or web address] Not available 03/08/2023 12:33:29 08/23/2023 [id number] Low cholesterol diet advised Low sodium diet advised. [email or web address] Not available 08/23/2023 12:48:04 Reason for Referral None Reported. Results Created Date Observation Date Name Description Value Unit Range Abnormal Flag Note LastModifiedBy Organization Detail LastModifiedTime 09/02/1908/31/2022 elect rocar diogr am No observ ation record ed. Not Available 2022 10:01:09 10/08/19 23 09/28/2022 pacem lyle inter rogat ion (PROC ) No observ ation record ed. Not Available 2022 14:30:41 10/27/19 23 10/04/2022 exerc ise stres s test No observ ation record ed. Not Available 2022 12:17:34 04/05/20 23 03/29/2023 pacem lyle inter rogat ion (PROC ) No observ ation record ed. Not Available 2022 16:06:27 09/13/19 24 08/23/2023 elect rocar diogr am No observ ation record ed. Not Available 2023 16:13:40 10/19/19 24 10/04/2023 , echo arlynno gram No observ ation record ed. [email or web address] Not Available 2023 22:48:48 10/20/19 24 09/27/2023 pacem lyle inter rogat ion (PROC ) No observ ation record ed. Not Available 2023 16:04:44 10/25/19 24 06/29/2023 pacem lyle inter rogat ion (PROC ) No observ ation record ed. Not Available 2023 10:08:40 01/10/20 24 12/27/2023 pacem lyle inter rogat ion (PROC ) No observ ation record ed. Not Available 2023 13:58:51 02/22/20 24 02/21/2024 elect bello acosta am No observ ation record ed. Not Available 2023 10:09:48 05/02/20 24 03/27/2024 pacem lyle inter rogat ion (PROC ) No observ ation record ed. Not Available 2023 14:51:55 Result Notes None recorded. Problems Name Problem SNOMED Code Status Onset Date Resolution Date Notes Provider Name and Address Organization Details Recorded Time Coronary arteriosclero sis 53436731 Active loren danika-gu [place]ve [place] - [facility] 1 13:04:47 Diverticular disease 633960162 Active 2020 loren danika-gu [place] - [facility] 1 18:47:24 Congestive heart failure 12814711 Active 2020 Jay Jay Chang [place], [place] - [facility] 3 09:29:13 Anemia 554269949 Active D64.9 Sabrina [place]us [place] [facility] 0 13:03:35 Diabetes mellitus 78946149 Active E11.65 Jay Jay [place] [facility] 3 09:29:19 Cardiac arrhythmia 807073707 Active I49.8 Sab[place] [facility] 0 13:04:04 Heart failure 45900407 Active I50.9 Sab[place] [facility] 0 13:04:18 Benign prostatic hyperplasia 395512809 Active N40.0 Sabrina Alexus [place] - [facility] 0 13:04:42 Systolic heart failure 681441193 Active 2019 Goyal [facility] 0 15:57:21 Essential hypertension 09793837 Active 2019 Goyaljuan Chang [facility] 3 09:29:32 Aortic valve stenosis 10711795 Active 2019 Goyaljuan Chang [facility] 0 05:35:53 Notes:bradycardia 1 week ago on day 0 prior to infusio patinet had a brief episode of bradycardia 35 sitting per Jacquelyn PA palpation of Pulse and during vitals pre and then again post Jacquelyn counted manually for 2 full minutes and then went from 55 to 30- 35 back to 55.-60 BPM, regular but then stayed in NSR 50s. Pt complaining of fatigue yet can walk 2 miles every day. Echo shows 10-15 % down from previous echos. 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 Problem Notes None recorded. Procedures Surgical History Date Name Laterality Status Provider Name and Address Organization Details Recorded Time 02/29/20 20 Cardiac Catheterization completed [facility] 01/20/2023 09:26:51 Cholecystectomy completed [facility] 01/20/2023 09:27:02 hernia repair completed [facility] [place] 01/20/2023 09:27:10 lithotripsy completed [facility] 01/20/2023 09:27:28 exploratory lumbar laminectomy completed [facility] 01/20/2023 09:28:02 Imaging Results Imaging Date Name Status LastModified by Organization Details LastModified Time 08/31/2022 electrocardiogram completed Informa tion not available 09/01/2022 10:01:09 09/28/2022 pacemaker interrogation (PROC) completed Information not available 10/07/2022 14:30:41 10/04/2022 exercise stress test completed Info rmation not available 10/26/2022 12:17:34 03/29/2023 pacemaker interrogation (PROC) completed Information not available 04/05/2023 16:06:27 08/23/2023 electrocardiogram completed Informa tion not available 09/13/2023 16:13:40 10/04/2023 US, echocardiogram completed Inform ation not available 02/19/2024 22:48:48 09/27/2023 pacemaker interrogation (PROC) completed Information not available 10/20/2023 16:04:44 06/29/2023 pacemaker interrogation (PROC) completed Information not available 10/25/2023 10:08:40 12/27/2023 pacemaker interrogation (PROC) completed Information not available 01/10/2024 13:58:51 02/21/2024 electrocardiogram completed Informa tion not available 02/22/2024 10:09:48 03/27/2024 pacemaker interrogation (PROC) completed Information not available 05/02/2024 14:51:55 Procedure Notes None recorded. Medical Equipment None Reported. Allergies No known drug allergies Medications Name Sig Start Date Stop Date Status Note LastModified by Organization Details LastModified Time furosemid e 40 mg tablet Take 1 tablet every day by oral route. 2023 active Not Available Not Available Not Avai lable atorvasta tin 40 mg tablet TAKE 1 (ONE) TABLET BY MOUTH ONCE DAILY 08/28 completed pt no longer takes nj Not Available Not Available Not Available atorvasta tin 80 mg tablet 10/21 completed Not Available Not Available Not Available pravastat in 40 mg tablet TAKE 1 TABLET BY MOUTH DAILY 02/20 completed Not Available Not Available Not Available metoprolo l succinate ER 50 mg tablet,ex tended release 24 hr 04/21 completed pt stopped taking med 04/14/20 20 rl Not Available Not Available Not Available clopidogr el 75 mg tablet TAKE 1 TABLET BY MOUTH EVERY DAY active Not Available Not Available No t Available glimepiri de 2 mg tablet TAKE 1 TABLET BY MOUTH EVERY MORNING active Not Available Not Available No t Available pantopraz ole 20 mg tablet,de layed release TAKE 1 TABLET BY MOUTH EVERY MORNING active Not Available Not Available No t Available pravastat in 80 mg tablet TAKE 1 TABLET BY MOUTH EVERY DAY active Not Available Not Available No t Available tamsulosi n 0.4 mg capsule TAKE 1 CAPSULE BY MOUTH EVERY DAY AT BEDTIME active Not Available Not Available No t Available metformin 1,000 mg tablet TAKE 1 TABLET BY MOUTH TWICE A DAY active Not Available Not Available No t Available triamcino lone acetonide 0.1 % topical ointment APPLY A SMALL AMOUNT TO AFFECTED AREA TWICE A DAY DO NOT USE MORE THAN TWO WEEKS. active Not Available Not Available No t Available doxazosin 4 mg tablet Take 1 tablet every day by oral route as directed . 03/03 completed pt no longer takes this since hosptial visit 03/03/20 20 rl Not Available Not Available Not Available aspirin 81 mg chewable tablet Chew 1 tablet every day by oral route. active Not Available Not Available No t Available lisinopri l 5 mg tablet TAKE 1 (ONE) TABLET BY MOUTH ONCE DAILY 10/21 completed Not Available Not Available Not Available furosemid e 20 mg tablet TAKE 1 TABLET (20 MG) BY MOUTH EVERY OTHER DAY 02/20 completed Not Available Not Available Not Available metoprolo l succinate ER 25 mg tablet,ex tended release 24 hr TAKE 1/2 TABLET DAILY BY MOUTH active Not Available Not Available No t Available lisinopri l 2.5 mg tablet TAKE 1 TABLET BY MOUTH EVERY DAY 10/21 completed Not Available Not Available Not Available finasteri de 5 mg tablet TAKE 1 TABLET BY MOUTH EVERY DAY active Not Available Not Available No t Available amoxicill in 875 mg-potass ium clavulana te 125 mg tablet TAKE 1 TABLET BY MOUTH EVERY 12 HOURS active Not Available Not Available No t Available doxycycli ne hyclate 200MG PO QD 03/03 completed Not Available Not Available Not Available Contour Next Test Strips USE 1 TEST STRIP TO CHECK FASTING GLUCOSE DAILY active Not Available Not Available No t Available Contour Next EZ Meter USE TO CHECK FASTING BLOOD GLUCOSE DAILY OR IF SYMPTOMS active Not Available Not Available No t Available Entresto 24 mg-26 mg tablet Take 1 tablet twice a day by oral route. active pt took 4 sample bottles 05/29/21 njpt took 4 sample bottles 09/29/21 nj Not Available Not Available Not Available Fluad 65yr up(PF)45 mcg(15 mcgx3)/0. 5 mL intramusc ular syringe 02/28 completed Not Available Not Available Not Available Fluzone High-Dose Quad 2020-21 (PF) 240 mcg/0.7 mL IM syringe 02/28 completed Not Available Not Available Not Available COVID-19 vacc,mRNA (Pfizer)( PF) complete d 08/10 completed Not Available Not Available Not Available Vitals Date Recorded Body height Body mass index (BMI) Body weight Heart rate Respiratory rate Oxygen saturation Oxygen saturation in Arterial blood by Pulse oximetry Systolic blood pressure Diastolic blood pressure Provider Name and Address Organization Details Last Updated DateTime 3 180.34 cm 29.4 kg/m2 88922.9 9 g 72 /min 16 /min 95 % 95 % 122 mm[Hg] 76 mm[Hg] Celestino Milligan [facility] 3 09:54:34 Date Recorded Body height Body mass index (BMI) Body weight Oxygen saturation Oxygen saturation in Arterial blood by Pulse oximetry Heart rate Systolic blood pressure Diastolic blood pressure Provider Name and Address Organization Details Last Updated DateTime 3 180.34 cm 29.2 kg/m2 63653.8 8 g 98 % 98 % 56 /min 108 mm[Hg] 60 mm[Hg] YANIQUE TEJEDAONY [facility] 3 09:46:38 Date Recorded Body height Body mass index (BMI) Body weight Heart rate Respiratory rate Oxygen saturation Oxygen saturation in Arterial blood by Pulse oximetry Systolic blood pressure Diastolic blood pressure Provider Name and Address Organization Details Last Updated DateTime 3 180.34 cm 28.6 kg/m2 99899.4 4 g 72 /min 16 /min 98 % 98 % 114 mm[Hg] 64 mm[Hg] Celestino Milligan [facility] 3 12:11:29 Date Recorded Body height Body mass index (BMI) Body weight Heart rate Oxygen saturation Oxygen saturation in Arterial blood by Pulse oximetry Systolic blood pressure Diastolic blood pressure Provider Name and Address Organization Details Last Updated DateTime 4 180.34 cm 29 kg/m2 57628.2 1 g 63 /min 98 % 98 % 118 mm[Hg] 72 mm[Hg] Mary Ruelas [facility] 4 12:32:08 Date Recorded Body height Body mass index (BMI) Body weight Heart rate Respiratory rate Oxygen saturation Oxygen saturation in Arterial blood by Pulse oximetry Systolic blood pressure Diastolic blood pressure Provider Name and Address Organization Details Last Updated DateTime 4 180.34 cm 27.3 kg/m2 04751.1 g 84 /min 16 /min 95 % 95 % 138 mm[Hg] 84 mm[Hg] Celestino Milligan [facility] 4 17:15:30 Social History Question Answer Notes LastModified by Organizat ion Details LastModified Time Tobacco Smoking Status [facility] [address] 13:08:14 Do You Have An Advance Directive? Yes [email or web address] Information not available 04/21/2020 What Is Your Level Of Alcohol Consumption? None [email or web address] Information not available 02/29/2020 Are You Blind Or Do You Have Difficulty Seeing? No Information not available 02/09/2021 What Is Your Level Of Caffeine Consumption? Occasional [email or web address] Information not available 02/29/2020 How Much Tobacco Do You Chew? None Information not available 02/29/2020 Are You Deaf Or Do You Have Serious Difficulty Hearing? No Information not available 02/09/2021 What Type Of Diet Are You Following? REGULAR Information not available 02/29/2020 Which Illicit Or Recreational Drugs Have You Used? NONE [email or web address] Information not available 02/29/2020 Do You Or Have You Ever Used E-cigarettes Or Vape? Never Used Electronic Cigarettes Information not available 02/29/2020 What Is Your Occupation? RETIRED Information not available 02/29/2020 Live Alone Or With Others? With Others [email or web address] Information not available 02/29/2020 Marital Status [email or web address] Informatio n not available 02/29/2020 What Was The Date Of Your Most Recent Tobacco Screening? 03/03/2020 Information not available 03/21/2020 Do You Or Have You Ever Used Smokeless Tobacco? Never Used Smokeless Tobacco [email or web address] Information not available 02/29/2020 How Much Tobacco Do You Smoke? No [email or web address] Information not available 04/21/2020 General Stress Level Low [email or web address] Information not available 02/29/2020 Sex: Unknown Functional Status Question Answer Note LastModified by Organizat ion Details LastModified Time Do you have difficulty walking or climbing stairs? No Information not available 02/09/2021 Do you have difficulty doing errands alone? No Information not available 02/09/2021 Do you have difficulty dressing or bathing? No Information not available 02/09/2021 What is your exercise level? Occasional [email or web address] Information not available 02/29/2020 Mental Status Question Answer Note LastModified by Organization D etails LastModified Time Do you have difficulty concentrating, remembering or making decisions? No Information no t available 02/09/2021 Family History Relationship Description Onset Age of this Age Resolved Age Notes LastModified by Organization Details LastModified Time Father Myocardial infarction 77 [email or web address] Not available 01/20 09:28:26 Mother Myocardial infarction 72 [email or web address] Not available 01/20 09:28:37 Mother Diabetes mellitus [email or web address] Not available 2022 09:28:46 Unspecified Relation Myocardial infarction GEOFF Rose [email or web address] Not available 02/29/2020 13:07:54 Medical History Condition Response Arrhythmia Y Anemia Y Diabetes Y Heart Disease Y Hypertension Y Immunizations Vaccine Type Date Status Note Provider Nam e and Address Organization Details Recorded Time COVID-19, mRNA, LNP-S, PF, 100 mcg/0.5mL dose or 50 mcg/0.25mL dose 07/23/2020 completed loren casono-junlve [place], [place] - [facility] 02/19/2021 18:08:46 COVID-19, mRNA, LNP-S, PF, 100 mcg/0.5mL dose or 50 mcg/0.25mL dose 08/13/2020 completed loren casono-g[place]ve [place] - [facility] 02/19/2021 18:08:58 COVID-19, mRNA, LNP-S, PF, 100 mcg/0.5mL dose or 50 mcg/0.25mL dose 02/17/2021 completed loren rodriguezasso-gulve [place] - [facility] 02/19/2021 18:09:04 Past Encounters Encounter ID Performer Location Encounter Start Date Encounter Closed Date Diagnosis/Indication Diagnosis SNOMED-CT Code Diagnosis ICD10 Code [id number] MD Ace Arevalo Office [address] [place] [id number] 03/03/2020 15:14:32 03/04/2020 10:23:26 Follow-up visit 570848998 Z09 Systolic h eart failure 703644614 I50.20 Diabetes mellitus 239359 09 E11.9 Cardiac arrhythmia 37509 7007 I49.9 [id number] MD Ace Arevalo Office [address] [place] [id number] 0 03/24/2020 15:38:11 03/24/2020 16:04:24 Follow-up visit 410542806 Systolic h eart failure 078758021 I50.20 Diabetes mellitus 509068 09 E11.9 Cardiac arrhythmia 92462 7007 I49.9 Aortic valve stenosis 60 341992 I35.0 Essential hypertension 08120142 I10 [id number] MD Ace Arevalo Office [address] [place] [id number] 0 04/14/2020 14:04:52 04/14/2020 16:04:34 Systolic heart failure 714091747 I50.20 Diabetes mellitus 548540 09 E11.9 Cardiac arrhythmia 56201 7007 I49.9 Aortic valve stenosis 60 463596 I35.0 Essential hypertension 81994550 I10 [id number] MD Ace Arevalo Office [address] [place] [id number] 0 04/21/2020 14:07:09 04/22/2020 10:57:05 Systolic heart failure 397079276 I50.20 Diabetes mellitus 730610 09 E11.9 Cardiac arrhythmia 15059 7007 I49.9 Aortic valve stenosis 60 216739 I35.0 Essential hypertension 27434405 I10 [id number] loren valera [facility] [address] [place] [address] 10/21/2020 11:35:13 11/19/2020 11:50:34 Systolic heart failure 312504204 I50.20 Diabetes mellitus 921206 09 E11.9 Cardiac arrhythmia 38359 7007 I49.9 Aortic valve stenosis 60 569670 I35.0 Essential hypertension 78655581 I10 [id number] Indira Martinez [facility] [place] e Office [address] [place] [address] 12/01/2020 10:24:47 12/01/2020 10:57:39 Systolic heart failure 880470287 I50.20 Diabetes mellitus 642440 09 E11.9 Cardiac arrhythmia 91381 7007 I49.9 Aortic valve stenosis 60 024585 I35.0 Essential hypertension 62860744 I10 [id number] Jarvis Burdick MD [facility] e Office [address] [place] [address] 01/01/2021 10:44:14 01/02/2021 08:19:00 Systolic heart failure 509158994 I50.20 Diabetes mellitus 222037 09 E11.9 Cardiac arrhythmia 56003 7007 I49.9 Aortic valve stenosis 60 474446 I35.0 Essential hypertension 06751716 I10 [id number] [facility] [place] [facility] [place] [address] 02/09/2021 10:33:45 02/09/2021 13:44:07 Congestive heart failure 87868039 I50.9 Systolic h eart failure 532128464 I50.20 Diabetes mellitus 897836 09 E11.9 Cardiac arrhythmia 92289 7007 I49.9 Aortic valve stenosis 60 582619 I35.0 Essential hypertension 19055316 I10 Coronary arteriosclerosis 39265438 I25.10 Aortic kaylynn nosis, non-rheumatic 197856029 I35.0 [id number] loren casono-[facility] OFFICE [facility] [place] [address] 02/19/2021 10:14:29 02/19/2021 16:07:15 Congestive heart failure 73156243 I50.9 Systolic h eart failure 254517573 I50.20 Diabetes mellitus 904935 09 E11.9 Cardiac arrhythmia 88623 7007 I49.9 Aortic valve stenosis 60 653010 I35.0 Essential hypertension 46993693 I10 Coronary arteriosclerosis 74393932 I25.10 Aortic kaylynn nosis, non-rheumatic 576163014 I35.0 Bradycardia 41182592 R00 .1 [id number] Jarvis Burdick MD [place] [facility] [place] [address] 02/27/2021 09:13:04 02/27/2021 10:13:37 Cardiac arrhythmia 228948185 I49.9 Coronary arteriosclerosis 66427325 I25.10 Diabetes mellitus 036651 09 E11.9 Essential hypertension 97862768 I10 Chronic sy stolic heart failure 582529139 I50.22 Bradycardia 04102597 R00 .1 [id number] loren casono-gu lve [place] [facility] [place] [address] 02/26/2021 10:15:18 02/26/2021 15:56:20 Congestive heart failure 03105111 I50.9 Systolic h eart failure 883584047 I50.20 Diabetes mellitus 199010 09 E11.9 Cardiac arrhythmia 25548 7007 I49.9 Aortic valve stenosis 60 351626 I35.0 Essential hypertension 37468490 I10 Coronary arteriosclerosis 86800555 I25.10 Aortic kaylynn nosis, non-rheumatic 829372060 I35.0 Bradycardia 51954689 R00 .1 Sinus bradycardia 343501 05 R00.1 [id number] Jarvis Burdick MD [facility] [address] [place] [id number] 03/09/2021 10:50:50 03/09/2021 12:07:32 Systolic heart failure 113784889 I50.20 Diabetes mellitus 892114 09 E11.9 Cardiac arrhythmia 06420 7007 I49.9 Aortic valve stenosis 60 721336 I35.0 Essential hypertension 65166478 I10 [id number] loren casono-jun lve [place] [facility] [place] [address] 05/29/2021 10:52:32 05/29/2021 12:13:46 Cardiac arrhythmia 285744221 I49.9 Coronary arteriosclerosis 25066514 I25.10 Diabetes mellitus 578366 09 E11.9 Essential hypertension 05470645 I10 Chronic sy stolic heart failure 390891661 I50.22 Bradycardia 50062909 R00 .1 [id number] Jarvis Burdick MD [place] [facility] [place] [address] 08/28/2021 11:00:12 08/28/2021 11:48:13 Cardiac arrhythmia 026784098 I49.9 Coronary arteriosclerosis 29496472 I25.10 Diabetes mellitus 375225 09 E11.9 Essential hypertension 53552232 I10 Chronic sy stolic heart failure 090365035 I50.22 Bradycardia 33471560 R00 .1 [id number] Jarvis Burdick MD [facility] [address] [place] [id number] 03/04/2022 15:14:18 03/04/2022 16:01:54 Cardiac arrhythmia 098971724 I49.9 Coronary arteriosclerosis 15740708 I25.10 Diabetes mellitus 024894 09 E11.9 Essential hypertension 27484277 I10 Chronic sy stolic heart failure 557726908 I50.22 Bradycardia 69904153 R00 .1 [id number] Jarvis Burdick MD [facility] [address] [place] [address] 08/31/2022 09:36:17 08/31/2022 10:30:17 Cardiac arrhythmia 876847920 I49.9 Coronary arteriosclerosis 86947997 I25.10 Diabetes mellitus 068152 09 E11.9 Essential hypertension 05873307 I10 Chronic sy stolic heart failure 771228059 I50.22 Bradycardia 96634059 R00 .1 Dyslipidemia 988995905 E 78.5 [id number] Jarvis Burdick MD [facility] [address] [place] [id number] 12/07/2022 09:31:33 12/07/2022 10:24:51 Cardiac arrhythmia 935404772 I49.9 Coronary arteriosclerosis 99885328 I25.10 Diabetes mellitus 667229 09 E11.9 Essential hypertension 78140571 I10 Chronic sy stolic heart failure 396440165 I50.22 Bradycardia 52259787 R00 .1 Dyslipidemia 541719698 E 78.5 [id number] Jarvis Burdick MD [place] [facility] [place] [address] 03/08/2023 11:22:05 03/08/2023 12:35:40 Cardiac arrhythmia 117792216 I49.9 Coronary arteriosclerosis 11537859 I25.10 Diabetes mellitus 756377 09 E11.9 Essential hypertension 79785934 I10 Chronic sy stolic heart failure 292542824 I50.22 Bradycardia 89441109 R00 .1 Dyslipidemia 332339964 E 78.5 [id number] ELI WASHINGTON [facility] [address] [place] [address] 08/23/2023 12:04:32 08/23/2023 12:56:08 Cardiac arrhythmia 097786400 I49.9 Coronary arteriosclerosis 32533610 I25.10 Diabetes mellitus 071901 09 E11.9 Essential hypertension 23374138 I10 Chronic sy stolic heart failure 507494462 I50.22 Bradycardia 24018881 R00 .1 Dyslipidemia 371475558 E 78.5 Aortic valve stenosis 60 754251 I35.0 [id number] Jarvis Burdick MD [place] [facility] [place] [address] 02/21/2024 16:59:28 02/21/2024 17:34:26 Cardiac arrhythmia 887625423 I49.9 Coronary arteriosclerosis 79663708 I25.10 Diabetes mellitus [id number] 09 E11.9 Essential hypertension 48314700 I10 Chronic sy stolic heart failure 809652363 I50.22 Bradycardia 13071468 R00 .1 Dyslipidemia 616449269 E 78.5 Aortic valve stenosis 60 118528 I35.0 Health Concerns Section Related Observation LastModified by Organization Detai ls LastModified Time None Recorded Concern Status LastModified by Organization Details LastModified Time None Recorded Advance Directives Directive Y: Payers Encounter Date Sequence Insurance Name Policy Number Policy Zelaya Covered Member ID Zelaya Member ID Guarantor Name 08/31/2022 1 [employer] (MEDICARE REPLACEMENT HMO) [id number] Padmini Amador [id number] Padmini Amador 12/07/2022 1 [employer] (MEDICARE REPLACEMENT HMO) [id number] Padmini Amador [id number] Padmini Amador 03/08/2023 1 [employer] (MEDICARE REPLACEMENT HMO) [id number] Padmini Amador [id number] Padmini Amador 08/23/2023 1 [employer] (MEDICARE REPLACEMENT HMO) [id number] Padmini Amador [id number] Padmini Amador 02/21/2024 1 [employer] (MEDICARE REPLACEMENT HMO) [id number] Padmini Amador [id number] Padmini Amador Notes Date Note Type Note Provider Name and Address Organization Details Recorded Time 08/31/2022 text/html 08/31/22CC : Car diac follow up chest pain and dyspnea on [id number] male with PMH of Coronary artery disease s/p PCI to OM and LCx ([facility]) on Plavix, ASA, aortic valve stenosis s/p TAVR, Hypertension, CHF, diabetes mellitus mild anemia also in HEART-FID trial with Jacquelyn MOJICA, is Here for 6 month follow up. He was last seen in the clinic on 03/04/22, since then he is doing well. He denied chest pain or dyspnea on exertion. *Last LDL was 65 done on 10/28/20.Pt takes pravastatin 40 mg. last. Last ICD interrogation was unremarkable. He denies ER visits and hospitalizations since he was last seen. Today reports:Denies chest pain.Denies shortness of breath at rest. Has mild dyspnea on exertion.No orthopnea. No PNDs.Denies heart palpitations.Denies dizziness. Denies syncope or near syncope.No ankle or leg edema.No major bleeding events.No reported side effects from medications. Taking medications as prescribed with no missed doses.Denies snoring, daytime somnolence and AM headache.*Last LDL was 65 done on 10/28/20.Pt takes pravastatin 40 mg. Previously: He is active with work around the house *Had ECHO done on 06/17/21 showed LV chamber size is noraml,the basal septal wall appears moderately hypokinetic, LVEF is 25-30%,there is a wall seated bioprosthetic aortic valve with normal function. His blood pressure is under control after stating his Entresto 24 mg -26 mg daily. He denied chest pain and dyspnoea on exertion. Last LDL was 65 done on 10/28/20.Pt takes atorvastatin 40 mg. Since then he has had fatigue and some TOVAR with walking but seemed to do well on the 6 minute walk test performed on 02-19-2021. When he was hospitalized in he had had a NSTEMI and eventually had PCI and TAVR before 2020. His LVEF at that time was 30-35%, and has dropped over the course of the year, to 10-18%. He was taken off of certain medication's due to Hypotension and is on Metoprolol 12.5 mg daily. Had been on Lisinopril. See below ECHOS for comparison. Had ICD due to ischemic cardiomyopathy I did note that his pulse can go from 35 at one point and then 60 after that. Has received 2 infusions, perform first the 6 MWT and have day 0 blood drawn for chemistry. *Had LHC on 03/10/2020 revealing multi-vessel CAD. He was admitted to [facility] on 03/11/2020 with acute decompensated CHF, and NSTEMI, was transferred to [facility] for possible CABG. He was determined to be a poor candidate due to distal LAD disease, and was then referred to [facility] for PCI and possible TAVR. *He had PCI to OM and LCx at [facility]. He was discharged from [facility] with Lifevest which he is wearing in office today. Results from this visit, or from the past:-2020 Hg 12.0, Ferritin < 100, nt Pro BNP > 7000 meets criteria for lab in HEART FID randomization 10/29/20:Na 142,K 4.9,Cl 103,Co2 26,Glu 102,Bun 15,Cr 1.11,AST 18,ALT 10. 10/29/20:TC 122,TG 82,HDL 41,LDL 65. CMP, serum or plasma 10-28-2020 Attachment available 03/14/20 BMP: NA 136, K 4.4, CH 96, CO2 29, GL 149, BUN 32, CR 1.1, CA 10.1, MG 2.0 03/14/20 CBC: WBC 7.3, RBC 4.25, HGB 12.7, HCT 37.5, PLT 194 03/12/20 FLP: TR 73, TC 113, HDL 38, LDL 60 03/12/20 Troponin: 2.110 03/11/20 PT/INR: PT 15.2, INR 1.14, PTT 36 03/11/20 CMP: NA 136, K 5.0, CH 95, CO2 29, GL 130, BUN 24, CR 1.2, CA 9.6, AST 41, ALT 14 03/11/20 M.91 COVID: NOT DETECTED/NEGATIVEEKG 02-19 Sinus bradycardia with PVCs. 10/21/20 EKG: sinus rhythm (slow). P: normal. QRS: moderate intraventricular conduction delay. ST-T: high-lateral and left-precordial ST-T changes, consider ischemia or LV overload. negative T in V6. with small negative T in I aVL V5. conclusion: abnormal ECG. 03/24/20 EKG: Atrial Bradycardia - 1st degree AV block. Nonspecific QRS widening. Inferior infarct- probably not recent. T abnormality - possible anterolateral ischemia 03/11/20 EKG: Sinus rhythm with 1st degree A-V block with frequent premature ventricular complexes in bigeminy pattern. poor R progression. NSST changes. 03/03/20 EKG: Atrial rhythm- occasional ectopic ventricular beat. Inferior infarct- age undetermined. Left axis secondary to infarct. Consider anterior fascicular block. Nonspecific ST depression + negative T waves 02/27/20 EKG: Sinus rhythm. Ventricular couplet and ventricular bigeminy. Delayed precordial R/S transition. ST-T wave abnormality in high lateral leads- consider ischemia. Baseline artifact. Abnormal EKG. Echo 11/18/2020: LV chamber size is normal. The estimated left ventricle ejection fraction is 25-30% (abnormal). There is mild aortic regurgitation. There is a normal bio prosthetic aortic valve. There is mild to moderate regurgitation. Estimated RVSP systolic pressure is 52 mmHg. ECHO 04/15/20: The estimated left ventricle ejection fraction is 15-20% (abnormal). The aortic valve is moderately calcified. There is mild aortic regurgitation. There is moderate to severe aortic valve stenosis. Aortic valve area by VTI: 0.72 cm^2. There is mild mitral regurgitation. There is mild tricuspid regurgitation. Estimated RVSP systolic pressure is 46 mmHg. 03/13/20 ECHO: There is fusion and severe restriction of the left and right coronary cusps of the aortic valve. There is moderate restriction of the non coronary cusp. There is moderate aortic stenosis. Aortic valve area by planimetry is 1.2 cm2. Mitral valve is structurally normal with mild to moderate mitral regurgitation. Tricuspid valve is not well visualized. There is moderate tricuspid regurgitation with excentric (septally directed) jet. 02/27/20 CHEST XR: Subtle scattered patchy infiltrates; diffusion diagnosis includes pneumonia, pulmonary edema. minimal congestive changes are suggested. Jarvis Burdick MD [address] [place], [address], [place] [facility] 08/31/2022 10:30:19 12/07/2022 text/html 12/07/22CC : Car diac follow up dyspnea on [id number] male with PMH of Coronary artery disease s/p PCI to OM and LCx ([facility]) on Plavix, ASA, aortic valve stenosis s/p TAVR, Hypertension, CHF, diabetes mellitus mild anemia also in HEART-FID trial with Jacquelyn THOMASON/BEBO, is Here for 3 month follow up. He was last seen in the clinic on 08/31/22, since then he is doing well. He denied chest pain or dyspnea on exertion. He is walking everyday with no problem. *Last LDL was 65 done on 10/28/20.Pt takes pravastatin 40 mg. His BP is low today 100/60He denies ER visits and hospitalizations since he was last seen. Today reports:Denies chest pain.Denies shortness of breath at rest. Has mild dyspnea on exertion.No orthopnea. No PNDs.Denies heart palpitations.Denies dizziness. Denies syncope or near syncope.No ankle or leg edema.No major bleeding events.No reported side effects from medications. Taking medications as prescribed with no missed doses.Denies snoring, daytime somnolence and AM headache.*Last LDL was 65 done on 10/28/20.Pt takes pravastatin 40 mg. 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 Severe LV systolic function. Previously:Last ICD interrogation was unremarkable. He is active with work around the house *Had ECHO done on 06/17/21 showed LV chamber size is normal,the basal septal wall appears moderately hypokinetic, LVEF is 25-30%,there is a wall seated bioprosthetic aortic valve with normal function. His blood pressure is under control after stating his Entresto 24 mg -26 mg daily. He denied chest pain and dyspnoea on exertion. Last LDL was 65 done on 10/28/20.Pt takes atorvastatin 40 mg. Since then he has had fatigue and some TOVAR with walking but seemed to do well on the 6 minute walk test performed on 02-19-2021. When he was hospitalized in he had had a NSTEMI and eventually had PCI and TAVR before 2020. His LVEF at that time was 30-35%, and has dropped over the course of the year, to 10-18%. He was taken off of certain medication's due to Hypotension and is on Metoprolol 12.5 mg daily. Had been on Lisinopril. See below ECHOS for comparison. Had ICD due to ischemic cardiomyopathy I did note that his pulse can go from 35 at one point and then 60 after that. Has received 2 infusions, perform first the 6 MWT and have day 0 blood drawn for chemistry. *Had LHC on 03/10/2020 revealing multi-vessel CAD. He was admitted to [facility] on 03/11/2020 with acute decompensated CHF, and NSTEMI, was transferred to [facility] for possible CABG. He was determined to be a poor candidate due to distal LAD disease, and was then referred to [facility] for PCI and possible TAVR. *He had PCI to OM and LCx at [facility]. He was discharged from [facility] with Lifevest which he is wearing in office today. Results from this visit, or from the past: Hg 12.0, Ferritin < 100, nt Pro BNP > 7000 meets criteria for lab in HEART FID randomization 10/29/20:Na 142,K 4.9,Cl 103,Co2 26,Glu 102,Bun 15,Cr 1.11,AST 18,ALT 10. 10/29/20:TC 122,TG 82,HDL 41,LDL 65. CMP, serum or plasma 10-28-2020 Attachment available 03/14/20 BMP: NA 136, K 4.4, CH 96, CO2 29, GL 149, BUN 32, CR 1.1, CA 10.1, MG 2.0 03/14/20 CBC: WBC 7.3, RBC 4.25, HGB 12.7, HCT 37.5, PLT 194 03/12/20 FLP: TR 73, TC 113, HDL 38, LDL 60 03/12/20 Troponin: 2.110 03/11/20 PT/INR: PT 15.2, INR 1.14, PTT 36 03/11/20 CMP: NA 136, K 5.0, CH 95, CO2 29, GL 130, BUN 24, CR 1.2, CA 9.6, AST 41, ALT 14 03/11/20 M.91 COVID: NOT DETECTED/NEGATIVEEKG 02-19 Sinus bradycardia with PVCs. 10/21/20 EKG: sinus rhythm (slow). P: normal. QRS: moderate intraventricular conduction delay. ST-T: high-lateral and left-precordial ST-T changes, consider ischemia or LV overload. negative T in V6. with small negative T in I aVL V5. conclusion: abnormal ECG. 03/24/20 EKG: Atrial Bradycardia - 1st degree AV block. Nonspecific QRS widening. Inferior infarct- probably not recent. T abnormality - possible anterolateral ischemia 03/11/20 EKG: Sinus rhythm with 1st degree A-V block with frequent premature ventricular complexes in bigeminy pattern. poor R progression. NSST changes. 03/03/20 EKG: Atrial rhythm- occasional ectopic ventricular beat. Inferior infarct- age undetermined. Left axis secondary to infarct. Consider anterior fascicular block. Nonspecific ST depression + negative T waves 02/27/20 EKG: Sinus rhythm. Ventricular couplet and ventricular bigeminy. Delayed precordial R/S transition. ST-T wave abnormality in high lateral leads- consider ischemia. Baseline artifact. Abnormal EKG. Echo 11/18/2020: LV chamber size is normal. The estimated left ventricle ejection fraction is 25-30% (abnormal). There is mild aortic regurgitation. There is a normal bio prosthetic aortic valve. There is mild to moderate regurgitation. Estimated RVSP systolic pressure is 52 mmHg. ECHO 04/15/20: The estimated left ventricle ejection fraction is 15-20% (abnormal). The aortic valve is moderately calcified. There is mild aortic regurgitation. There is moderate to severe aortic valve stenosis. Aortic valve area by VTI: 0.72 cm^2. There is mild mitral regurgitation. There is mild tricuspid regurgitation. Estimated RVSP systolic pressure is 46 mmHg. 03/13/20 ECHO: There is fusion and severe restriction of the left and right coronary cusps of the aortic valve. There is moderate restriction of the non coronary cusp. There is moderate aortic stenosis. Aortic valve area by planimetry is 1.2 cm2. Mitral valve is structurally normal with mild to moderate mitral regurgitation. Tricuspid valve is not well visualized. There is moderate tricuspid regurgitation with excentric (septally directed) jet. 02/27/20 CHEST XR: Subtle scattered patchy infiltrates; diffusion diagnosis includes pneumonia, pulmonary edema. minimal congestive changes are suggested. Jarvis Almousalli, MD [address] [place], [address], [place] [facility] 12/07/2022 10:19:58 03/08/2023 text/html 12/07/22CC : Car diac follow up dyspnea on [id number] male with PMH of Coronary artery disease s/p PCI to OM and LCx ([facility]) on Plavix, ASA, aortic valve stenosis s/p TAVR, Hypertension, CHF, diabetes mellitus mild anemia also in HEART-FID trial with Jacquelyn MOJICA, is Here for 3 month follow up. He was last seen in the clinic on 12/07/22, since then he is doing well nowHe denies ER visits and hospitalizations since he was last seen. Today reports:Denies chest pain.Denies shortness of breath at rest. Has mild dyspnea on exertion.No orthopnea. No PNDs.Denies heart palpitations.Denies dizziness. Denies syncope or near syncope.No ankle or leg edema.No major bleeding events.No reported side effects from medications. Taking medications as prescribed with no missed doses.Denies snoring, daytime somnolence and AM headache.*Last LDL was 65 done on 10/28/20.Pt takes pravastatin 40 mg. Previously:He is walking everyday with no problem. 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 Severe LV systolic function. Last ICD interrogation was unremarkable. He is active with work around the house *Had ECHO done on 06/17/21 showed LV chamber size is normal,the basal septal wall appears moderately hypokinetic, LVEF is 25-30%,there is a wall seated bioprosthetic aortic valve with normal function. His blood pressure is under control after stating his Entresto 24 mg -26 mg daily. Since then he has had fatigue and some TOVAR with walking but seemed to do well on the 6 minute walk test performed on 02-19-2021. When he was hospitalized in he had had a NSTEMI and eventually had PCI and TAVR before 2020. His LVEF at that time was 30-35%, and has dropped over the course of the year, to 10-18%. He was taken off of certain medication's due to Hypotension and is on Metoprolol 12.5 mg daily. Had been on Lisinopril. See below ECHOS for comparison. Had ICD due to ischemic cardiomyopathy I did note that his pulse can go from 35 at one point and then 60 after that. Has received 2 infusions, perform first the 6 MWT and have day 0 blood drawn for chemistry. *Had LHC on 03/10/2020 revealing multi-vessel CAD. He was admitted to [facility] on 03/11/2020 with acute decompensated CHF, and NSTEMI, was transferred to [facility] for possible CABG. He was determined to be a poor candidate due to distal LAD disease, and was then referred to [facility] for PCI and possible TAVR. *He had PCI to OM and LCx at [facility]. He was discharged from [facility] with Lifevest which he is wearing in office today. Results from this visit, or from the past:-2020 Hg 12.0, Ferritin < 100, nt Pro BNP > 7000 meets criteria for lab in HEART FID randomization 10/29/20:Na 142,K 4.9,Cl 103,Co2 26,Glu 102,Bun 15,Cr 1.11,AST 18,ALT 10. 10/29/20:TC 122,TG 82,HDL 41,LDL 65. CMP, serum or plasma 10-28-2020 Attachment available 03/14/20 BMP: NA 136, K 4.4, CH 96, CO2 29, GL 149, BUN 32, CR 1.1, CA 10.1, MG 2.0 03/14/20 CBC: WBC 7.3, RBC 4.25, HGB 12.7, HCT 37.5, PLT 194 03/12/20 FLP: TR 73, TC 113, HDL 38, LDL 60 03/12/20 Troponin: 2.110 03/11/20 PT/INR: PT 15.2, INR 1.14, PTT 36 03/11/20 CMP: NA 136, K 5.0, CH 95, CO2 29, GL 130, BUN 24, CR 1.2, CA 9.6, AST 41, ALT 14 03/11/20 M.91 COVID: NOT DETECTED/NEGATIVEEKG 02-19 Sinus bradycardia with PVCs. 10/21/20 EKG: sinus rhythm (slow). P: normal. QRS: moderate intraventricular conduction delay. ST-T: high-lateral and left-precordial ST-T changes, consider ischemia or LV overload. negative T in V6. with small negative T in I aVL V5. conclusion: abnormal ECG. 03/24/20 EKG: Atrial Bradycardia - 1st degree AV block. Nonspecific QRS widening. Inferior infarct- probably not recent. T abnormality - possible anterolateral ischemia 03/11/20 EKG: Sinus rhythm with 1st degree A-V block with frequent premature ventricular complexes in bigeminy pattern. poor R progression. NSST changes. 03/03/20 EKG: Atrial rhythm- occasional ectopic ventricular beat. Inferior infarct- age undetermined. Left axis secondary to infarct. Consider anterior fascicular block. Nonspecific ST depression + negative T waves 02/27/20 EKG: Sinus rhythm. Ventricular couplet and ventricular bigeminy. Delayed precordial R/S transition. ST-T wave abnormality in high lateral leads- consider ischemia. Baseline artifact. Abnormal EKG. Echo 11/18/2020: LV chamber size is normal. The estimated left ventricle ejection fraction is 25-30% (abnormal). There is mild aortic regurgitation. There is a normal bio prosthetic aortic valve. There is mild to moderate regurgitation. Estimated RVSP systolic pressure is 52 mmHg. ECHO 04/15/20: The estimated left ventricle ejection fraction is 15-20% (abnormal). The aortic valve is moderately calcified. There is mild aortic regurgitation. There is moderate to severe aortic valve stenosis. Aortic valve area by VTI: 0.72 cm^2. There is mild mitral regurgitation. There is mild tricuspid regurgitation. Estimated RVSP systolic pressure is 46 mmHg. 03/13/20 ECHO: There is fusion and severe restriction of the left and right coronary cusps of the aortic valve. There is moderate restriction of the non coronary cusp. There is moderate aortic stenosis. Aortic valve area by planimetry is 1.2 cm2. Mitral valve is structurally normal with mild to moderate mitral regurgitation. Tricuspid valve is not well visualized. There is moderate tricuspid regurgitation with excentric (septally directed) jet. 02/27/20 CHEST XR: Subtle scattered patchy infiltrates; diffusion diagnosis includes pneumonia, pulmonary edema. minimal congestive changes are suggested. Jarvis Burdick MD [address] [place], [address], [place] [facility] 03/08/2023 12:33:34 08/23/2023 text/html 08/23/23CC : Car diac follow up dyspnea on [id number] male with PMH of Coronary artery disease s/p PCI to OM and LCx ([facility]) on Plavix, ASA, aortic valve stenosis s/p TAVR, Hypertension, CHF, diabetes mellitus mild anemia also in HEART-FID trial with Jacquelyn THOMASON/BEBO, is Here for 6 month follow up. He was last seen in the clinic on 03/08/23, since then he is doing well. He denied chest pain or dyspnea on exertion. *Last LDL was 65 done on 10/28/20.Pt takes pravastatin 40 mg. He denies ER visits and hospitalizations since he was last seen. Today reports:Denies chest pain.Denies shortness of breath at rest. Has mild dyspnea on exertion.No orthopnea. No PNDs.Denies heart palpitations.Denies dizziness. Denies syncope or near syncope.No ankle or leg edema.No major bleeding events.No reported side effects from medications. Taking medications as prescribed with no missed doses.Denies snoring, daytime somnolence and AM headache.*Last LDL was 65 done on 10/28/20.Pt takes pravastatin 40 mg. Previously:He is walking everyday with no problem. 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 Severe LV systolic function. Last ICD interrogation was unremarkable. He is active with work around the house *Had ECHO done on 06/17/21 showed LV chamber size is normal,the basal septal wall appears moderately hypokinetic, LVEF is 25-30%,there is a wall seated bioprosthetic aortic valve with normal function. His blood pressure is under control after stating his Entresto 24 mg -26 mg daily. Since then he has had fatigue and some TOVAR with walking but seemed to do well on the 6 minute walk test performed on 02-19-2021. When he was hospitalized in he had had a NSTEMI and eventually had PCI and TAVR before 2020. His LVEF at that time was 30-35%, and has dropped over the course of the year, to 10-18%. He was taken off of certain medication's due to Hypotension and is on Metoprolol 12.5 mg daily. Had been on Lisinopril. See below ECHOS for comparison. Had ICD due to ischemic cardiomyopathy I did note that his pulse can go from 35 at one point and then 60 after that. Has received 2 infusions, perform first the 6 MWT and have day 0 blood drawn for chemistry. *Had LHC on 03/10/2020 revealing multi-vessel CAD. He was admitted to [facility] on 03/11/2020 with acute decompensated CHF, and NSTEMI, was transferred to [facility] for possible CABG. He was determined to be a poor candidate due to distal LAD disease, and was then referred to [facility] for PCI and possible TAVR. *He had PCI to OM and LCx at [facility]. He was discharged from [facility] with Lifevest which he is wearing in office today. Results from this visit, or from the past:-2020 Hg 12.0, Ferritin < 100, nt Pro BNP > 7000 meets criteria for lab in HEART FID randomization 10/29/20:Na 142,K 4.9,Cl 103,Co2 26,Glu 102,Bun 15,Cr 1.11,AST 18,ALT 10. 10/29/20:TC 122,TG 82,HDL 41,LDL 65. CMP, serum or plasma 10-28-2020 Attachment available 03/14/20 BMP: NA 136, K 4.4, CH 96, CO2 29, GL 149, BUN 32, CR 1.1, CA 10.1, MG 2.0 03/14/20 CBC: WBC 7.3, RBC 4.25, HGB 12.7, HCT 37.5, PLT 194 03/12/20 FLP: TR 73, TC 113, HDL 38, LDL 60 03/12/20 Troponin: 2.110 03/11/20 PT/INR: PT 15.2, INR 1.14, PTT 36 03/11/20 CMP: NA 136, K 5.0, CH 95, CO2 29, GL 130, BUN 24, CR 1.2, CA 9.6, AST 41, ALT 14 03/11/20 M.91 COVID: NOT DETECTED/NEGATIVEEKG 02-19 Sinus bradycardia with PVCs. 10/21/20 EKG: sinus rhythm (slow). P: normal. QRS: moderate intraventricular conduction delay. ST-T: high-lateral and left-precordial ST-T changes, consider ischemia or LV overload. negative T in V6. with small negative T in I aVL V5. conclusion: abnormal ECG. 03/24/20 EKG: Atrial Bradycardia - 1st degree AV block. Nonspecific QRS widening. Inferior infarct- probably not recent. T abnormality - possible anterolateral ischemia 03/11/20 EKG: Sinus rhythm with 1st degree A-V block with frequent premature ventricular complexes in bigeminy pattern. poor R progression. NSST changes. 03/03/20 EKG: Atrial rhythm- occasional ectopic ventricular beat. Inferior infarct- age undetermined. Left axis secondary to infarct. Consider anterior fascicular block. Nonspecific ST depression + negative T waves 02/27/20 EKG: Sinus rhythm. Ventricular couplet and ventricular bigeminy. Delayed precordial R/S transition. ST-T wave abnormality in high lateral leads- consider ischemia. Baseline artifact. Abnormal EKG. Echo 11/18/2020: LV chamber size is normal. The estimated left ventricle ejection fraction is 25-30% (abnormal). There is mild aortic regurgitation. There is a normal bio prosthetic aortic valve. There is mild to moderate regurgitation. Estimated RVSP systolic pressure is 52 mmHg. ECHO 04/15/20: The estimated left ventricle ejection fraction is 15-20% (abnormal). The aortic valve is moderately calcified. There is mild aortic regurgitation. There is moderate to severe aortic valve stenosis. Aortic valve area by VTI: 0.72 cm^2. There is mild mitral regurgitation. There is mild tricuspid regurgitation. Estimated RVSP systolic pressure is 46 mmHg. 03/13/20 ECHO: There is fusion and severe restriction of the left and right coronary cusps of the aortic valve. There is moderate restriction of the non coronary cusp. There is moderate aortic stenosis. Aortic valve area by planimetry is 1.2 cm2. Mitral valve is structurally normal with mild to moderate mitral regurgitation. Tricuspid valve is not well visualized. There is moderate tricuspid regurgitation with excentric (septally directed) jet. 02/27/20 CHEST XR: Subtle scattered patchy infiltrates; diffusion diagnosis includes pneumonia, pulmonary edema. minimal congestive changes are suggested. KEYUR Martinez - [facility] 08/23/2023 12:48:49 02/21/2024 text/html 02/21/24CC : [facility] follow [id number] male with PMH of Coronary artery disease s/p PCI to OM and LCx ([facility]) on Plavix, ASA, aortic valve stenosis s/p TAVR, Hypertension, CHF, diabetes mellitus mild anemia also in HEART-FID trial with Jacquelyn THOMASON/BEBO, is Here for 6 month follow up with ECHO and Labs results. He was last seen in the clinic on 08/23/23, since then he was in ER with leg edema Denies shortness of breath at rest. Has mild dyspnea on exertion.No orthopnea. No PNDs.Denies heart palpitations.Denies dizziness. Denies syncope or near syncope.No ankle or leg edema.No major bleeding events.No reported side effects from medications. Taking medications as prescribed with no missed doses.Denies snoring, daytime somnolence and AM headache.*Last LDL was 100 done on 09/26/23.Pt takes pravastatin 40 mg. *Had ECHO on 10/04/23 showed LV chamber is mildly dilated. There is mild global hypokinesis. The estimated left ventricle ejection fraction is 20-25% (abnormal). Increased left atrial pressure and Grade lll diastolic dysfunction is present. Left Atrium chamber is mildly dilated. Right Atrium chamber is mildly dilated. Well seated TAVR valve with normal gradients, no regurgitation, and no paravalvular leak. There is a dense posterior mitral annular calcification. There is mild mitral regurgitation. There is mild tricuspid regurgitation. Moderate elevation of estimated RV systolic pressure. The IVC is dilated and collapses > 50% with inspiration. (RAP-10mmHG). (09/26/2023) LIPID-TRIG 81 CHOL 144 LDL 100 HDL 35 09/26/2023 [id number] Previously:He is walking everyday with no problem. 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 Severe LV systolic function. Last ICD interrogation was unremarkable. He is active with work around the house *Had ECHO done on 06/17/21 showed LV chamber size is normal,the basal septal wall appears moderately hypokinetic, LVEF is 25-30%,there is a wall seated bioprosthetic aortic valve with normal function. His blood pressure is under control after stating his Entresto 24 mg -26 mg daily. Since then he has had fatigue and some TOVAR with walking but seemed to do well on the 6 minute walk test performed on 02-19-2021. When he was hospitalized in he had had a NSTEMI and eventually had PCI and TAVR before 2020. His LVEF at that time was 30-35%, and has dropped over the course of the year, to 10-18%. He was taken off of certain medication's due to Hypotension and is on Metoprolol 12.5 mg daily. Had been on Lisinopril. See below ECHOS for comparison. Had ICD due to ischemic cardiomyopathy I did note that his pulse can go from 35 at one point and then 60 after that. Has received 2 infusions, perform first the 6 MWT and have day 0 blood drawn for chemistry. *Had LHC on 03/10/2020 revealing multi-vessel CAD. He was admitted to [facility] on 03/11/2020 with acute decompensated CHF, and NSTEMI, was transferred to [facility] for possible CABG. He was determined to be a poor candidate due to distal LAD disease, and was then referred to [facility] for PCI and possible TAVR. *He had PCI to OM and LCx at [facility]. He was discharged from [facility] with Lifevest which he is wearing in office today. Results from this visit, or from the past:-2020 Hg 12.0, Ferritin < 100, nt Pro BNP > 7000 meets criteria for lab in HEART FID randomization 10/29/20:Na 142,K 4.9,Cl 103,Co2 26,Glu 102,Bun 15,Cr 1.11,AST 18,ALT . 10/29/20:TC 122,TG 82,HDL 41,LDL 65. CMP, serum or plasma 10-28-2020 Attachment available 03/14/20 BMP: NA 136, K 4.4, CH 96, CO2 29, GL 149, BUN 32, CR 1.1, CA 10.1, MG 2.0 03/14/20 CBC: WBC 7.3, RBC 4.25, HGB 12.7, HCT 37.5, PLT 194 03/12/20 FLP: TR 73, TC 113, HDL 38, LDL 60 03/12/20 Troponin: 2.110 03/11/20 PT/INR: PT 15.2, INR 1.14, PTT 36 03/11/20 CMP: NA 136, K 5.0, CH 95, CO2 29, GL 130, BUN 24, CR 1.2, CA 9.6, AST 41, ALT 14 03/11/20 M.91 COVID: NOT DETECTED/NEGATIVEEKG 02-19 Sinus bradycardia with PVCs. 10/21/20 EKG: sinus rhythm (slow). P: normal. QRS: moderate intraventricular conduction delay. ST-T: high-lateral and left-precordial ST-T changes, consider ischemia or LV overload. negative T in V6. with small negative T in I aVL V5. conclusion: abnormal ECG. 03/24/20 EKG: Atrial Bradycardia - 1st degree AV block. Nonspecific QRS widening. Inferior infarct- probably not recent. T abnormality - possible anterolateral ischemia 03/11/20 EKG: Sinus rhythm with 1st degree A-V block with frequent premature ventricular complexes in bigeminy pattern. poor R progression. NSST changes. 03/03/20 EKG: Atrial rhythm- occasional ectopic ventricular beat. Inferior infarct- age undetermined. Left axis secondary to infarct. Consider anterior fascicular block. Nonspecific ST depression + negative T waves 02/27/20 EKG: Sinus rhythm. Ventricular couplet and ventricular bigeminy. Delayed precordial R/S transition. ST-T wave abnormality in high lateral leads- consider ischemia. Baseline artifact. Abnormal EKG. Echo 11/18/2020: LV chamber size is normal. The estimated left ventricle ejection fraction is 25-30% (abnormal). There is mild aortic regurgitation. There is a normal bio prosthetic aortic valve. There is mild to moderate regurgitation. Estimated RVSP systolic pressure is 52 mmHg. ECHO 04/15/20: The estimated left ventricle ejection fraction is 15-20% (abnormal). The aortic valve is moderately calcified. There is mild aortic regurgitation. There is moderate to severe aortic valve stenosis. Aortic valve area by VTI: 0.72 cm^2. There is mild mitral regurgitation. There is mild tricuspid regurgitation. Estimated RVSP systolic pressure is 46 mmHg. 03/13/20 ECHO: There is fusion and severe restriction of the left and right coronary cusps of the aortic valve. There is moderate restriction of the non coronary cusp. There is moderate aortic stenosis. Aortic valve area by planimetry is 1.2 cm2. Mitral valve is structurally normal with mild to moderate mitral regurgitation. Tricuspid valve is not well visualized. There is moderate tricuspid regurgitation with excentric (septally directed) jet. 02/27/20 CHEST XR: Subtle scattered patchy infiltrates; diffusion diagnosis includes pneumonia, pulmonary edema. minimal congestive changes are suggested. Jarvis Burdick MD [address] [place], [address], [facility] - [facility] 02/21/2024 17:28:37
--- OUTSIDE RECORDS SUMMARY | 2024-05-22 02:12 | XMS_ITS | Clinical Summary ---
Author Organization [facility] [employer] Address [address] [place] [address] Care Team Providers Care Paper Machine Backtender Name Role Phone Floyd Mckinney MD Primary Care Provider + [phone] Source Comments [facility] [employer],non-owned Affiliates and Associated Physician Practices is amultiple site organization consisting of ambulatory clinics and hospital sitesin [place], [place], [place] and [place]. This disclosure is being madepursuant to the Care Everywhere program and may not contain all information available regarding this patient. Last updated 18.[facility] [employer] Allergies No known active allergies Medications * [...] HIGH-DOSE QUADRIVALENT; 65Y+), 0.7 ML ([id number]-IIV4) 01/22/2020 Family History Medical History Relation Name Comments CAD (Coronary Artery Disease) Brother 1 at 75; per patient, brother had multiple ID Heart Failure Brother 1 s/p PPM and IC D placed Renal Disease Brother 1 CAD (Coronary Artery Disease) Brother 2 s/p bypass per patient Heart Failure Brother 2 s/p PPM and IC D placed CAD (Coronary Artery Disease) Father at 77; per patient he had a heart stroke CAD (Coronary Artery Disease) Mother at 52 Diabetes - Type 2 Mother CAD (Coronary Artery Disease) Sister s/p bypass surgery; in 90s Relation Name Status Comments Brother 1 Brother 2 Father Mother Sister Social History Tobacco Use Types Packs/Day Years [...] CDT Respiratory Rate 15 04/30/2020 8:00 AM [employer]CHO[employer] Oxygen Saturation 98% 08/05/2020 10:41 AM CDT Inhaled Oxygen Concentration - - Weight 86.2 kg (190 lb) 08/05/2020 10:41 AM CDT Height 180.3 cm (5' 11 ) 08/05/2020 10:41 AM CDT Body Mass Index 26.5 08/05/2020 10:41 AM CDT Plan of Treatment Health Maintenance Due Date Last Done Comments PNEUMOCOCCAL VACCINE 65+ (1 of 2 - PCV) 10/28/1946 DTAP/TDAP/TD VACCINES (1 - Tdap) 1960 ZOSTER VACCINE (1 of 2) 10/28/1991 Respiratory Syncytial Virus (RSV) Vaccine Pt: or over 60 yrs (1 - 1-dose 75+ series) 2016 DIABETES - URINE PROTEIN SCREENING 03/19/2020 DIABETES RETINOPATHY SCREENING 03/19/2020 DIABETES-FOOT EXAM WITH MONOFILAMENT 03/19/2020 DIABETES-HGB A1C 09/13/2020 03/15/2020 DIABETES-SERUM CREATININE 04/30/20212019, 04/29/2020, 04/25/2020, Additional history exists DEPRESSION SCREENING 05/23/2023 MEDICARE AWV ? CALENDAR YEAR 2023 COVID-19 VACCINE ( season) 2024 INFLUENZA VACCINE (#1) 2024 01/22/2020 HEPATITIS B VACCINE Aged Out No longe r eligible based on patient's age to complete this topic HIB VACCINE Aged Out No longer eligi ble based on patient's age to complete this topic HPV VACCINE Aged Out No longer eligi ble based on patient's age to complete this topic MENINGOCOCCAL VACCINE Aged Out No edita zhanna eligible based on patient's age to complete this topic Medical Devices Implanted Type Area Linoleum Floor Layer Device Identifier Shelf Expiration Date Model / Serial / Lot Valve Aor Evolut Pro+ 34mm - [id number] Implanted:Qty: 1 on 04/29/2020 at [facility] Heart Valve N/A: Aortic Valve Medtronic Ave 05/29/2021 EVPROPLUS -34US / [id number] / Description:Implanted by: Mitul Dumont MD Sys Cor Stent Xience Srr 2.5mm 15mm Rap Implanted:Qty: 1 on 03/18/2020 by Oliver Biggs MD at [facility] Coronary [employer] 10/21/2020 [id number] Description:distal CIRC Sys Cor Stent Xience Srr 3.5mm 12mm Rap Implanted:Qty: 1 on 03/18/2020 by Oliver Biggs MD at [facility] [employer] 07/08/2021 [id number] Description:OM 2 Sys Cor Stent Xience Srr 2.25mm 12mm Rap Implanted:Qty: 1 on 03/18/2020 by Oliver Biggs MD at [facility] [employer] 10/15/2020 [id number] Description:OM 2 Procedures Procedure Name Priority Date/Time Associated Diagnosis Comments BASIC METABOLIC PANEL (CALCIUM TOTAL) AM Draw 04/30/2020 3:50 AM [employer] 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 Sodium 135(L) 136 - 145 mmol/L 04/30/2020 4:[address] [facility] Potassium 4.1 3.5 - 4.5 mmol/L 04/30/2020 4:[address] [facility] Chloride 102 98 - 107 mmol/L 04/30/2020 4:[address] [facility] CO2 26 22 - 29 mmol/L 04/30/2020 4:[address] [facility] Glucose 107 70 - 115 mg/dL 04/30/2020 4:[address] [facility] Calcium 7.9(L) 8.4 - 10.2 mg/dL 04/30/2020 4:[address] [facility] Anion Gap 11 8 - 18 04/30/2020 4:[address] [facility] BUN/Creatinine Ratio 18 7 - 23 04/30/2020 4:[address] [facility] Osmolality Calculated 281 270 - 300 mOsm/kg 04/30/2020 4:[address] [facility] eGFR >60 >60 mL/min/1.7 3 m2 04/30/2020 4:[address] [facility] Blood BLOOD SPECIMEN / Unknown Venipuncture / Unknown 04/30/2020 3:50 AM SCHOOL [employer]ARD 04/30/2020 4:07 AM [facility] Kaylee Mccain MEDICAL DATA ANALYST-PSYCHIATRIC NURSING AIDE LAB - CHEMISTRY ORDERABLES [facility] [address] [place] [address], [facility] [phone] * (ABNORMAL) HEMOGLOBIN A1C (03/15/2020 6:30 AM CDT) Hemoglobin A1c 6.5(H) 4.4 - 6.3 % 03/15/2020 1:19 PM CDT [facility] Estimated Average Glucose 140 mg/dL 03/15/2020 1:19 PM CDT [facility] Comment: HbA1c Interpretation: Treatment target values recommended by ADA and other clinical organizations should be used to evaluate metabolic control in patients. Treatment Target Values: Normal : < 5.7% Pre-diabetes: 5.7-6.4% Diabetes: Equal to or greater than 6.5% Reference: [place] Diabetes Association Standards of Care in Diabetes -2014 In patients 70 years and older consider HbA1c target range of 7.0-7.5% Reference: ??Diabetes Mellitus in Older People: Position Statement on behalf of the International Association of Gerontology and Geriatrics (IAGG), the Diabetes Working Alliance Party for Older People (EDWPOP), and the International Task Force of Experts in Diabetes. ??Nathan Quiñones, et al. J [place] Medical Directors Association. 2012 Test results diagnostic of diabetes should be repeated for confirmation. The Sebia Capillary 2 assay for the measurement of HbA1c is a National Glycohemoglobin Standardization Program (NGSP)certified method. Blood BLOOD SPECIMEN / Unknown Lab Venipuncture / Unknown 03/15/2020 6:30 AM CDT 03/15/2020 6:50 AM CDT Keena Cook MD LAB - CHEMISTRY [facility] Organization Address City/State/[facility] Co de Phone Number [address] [address] [phone] from Last 3 Months or Most Recently Relevant to Health Maintenance Advance Directives * Full Code (Latest Code Status on File) Date Activated Date Inactivated Comments 04/29/2020 1:42 PM 04/30/2020 6:20 PM * Full Code Date Activated Date Inactivated Comments 03/14/2020 11:00 PM 03/19/2020 8:59 PM Care Teams Paper Machine Backtender Relationship Specialty Start Date End Date Floyd Mckinney MD [address] [place] [address] PCP - General Internal Medicine 04/29/20
--- OUTSIDE RECORDS SUMMARY | 2024-05-22 02:12 | XMS_ITS | Continuity of Care Document ---
Author Organization [place] - [facility] OFF[facility] Address [address] [place] [address] Care Team Providers Care Tire And Lube Technician Name Role Phone JENNIFER PALOMARES Primary Care Provider [phone] JENNIFER PALOMARES Referring Provider JENNIFER PALOMARES Primary Care Provider Assessment No assessment recorded. Plan of Treatment Reminders Order Date Submit Date Provider Last Modified By Organization Details Last Modified Time Details Appointments ESTABLIS HED PATIENT DETAILED 2024 02:30P M Jarvis Burdick MD Not available Not available Not available PACER 2024 10:30A M Pacemaker Schedule Not available Not available Not available Lab None recorded . Referral None recorded . Procedures None recorded . Surgeries None recorded . Imaging None recorded . Medication Orders pravasta tin 80 mg tablet 2023 024 [facility] [id number] In [facility], [address] [place], [address], 02/21/2024 17:25:45 Patient TargetsNo targets recorded. Patient InstructionsNo instructions recorded. Reason for Referral None Reported. Results Created Date Observation Date Name Description Value Unit Range Abnormal Flag Note LastModifiedBy Organization Detail LastModifiedTime 02/22/2002/21/2024 elect rocar diogr am No observ ation record ed. Not Available 2023 10:09:48 05/02/20 24 03/27/2024 bolivar alejandro rogat ion (PROC ) No observ ation record ed. Not Available 2023 14:51:55 Result Notes None recorded. Problems Name Problem SNOMED Code Status Onset Date Resolution Date Notes Provider Name and Address Organization Details Recorded Time Coronary arteriosclero sis 09220343 Active loren casonoadrianna lve null, [place] - [facility] 1 13:04:47 Diverticular disease 823430659 Active 2020 loren garnica-jun lve [place], [place] - [facility] 1 18:47:24 Congestive heart failure 27892306 Active 2020 Jay Jay Chang null, [place] - [facility] 3 09:29:13 Anemia 474904240 Active D64.9 Sabrina [place] null, [place] - [facility] 0 13:03:35 Diabetes mellitus 10116804 Active E11.65 Jay Jay Chang null, [place] - [facility] 3 09:29:19 Cardiac arrhythmia 448964123 Active I49.8 Sabrina Do[place], [place] [facility] 0 13:04:04 Heart failure 44865090 Active I50.9 Sabrina Do[place], [place] - [facility] 0 13:04:18 Benign prostatic hyperplasia 453972208 Active N40.0 Sabrina Doans [place], [place] - [facility] 0 13:04:42 Systolic heart failure 703655730 Active 2019 Jay Jay Chang [place], [place] - [facility] 0 15:57:21 Essential hypertension 02060377 Active 2019 Jay Jay Chang [place], [place] - [facility] 3 09:29:32 Aortic valve stenosis 42868307 Active 2019 Jay Jay Chang null, [place] - [facility] 0 05:35:53 Notes:bradycardia 1 week ago on day 0 prior to infusio baldomero had a brief episode of bradycardia 35 [...] and Address Organization Details Recorded Time 02/29/20 Cardiac Catheterization completed [facility] 01/20/2023 09:26:51 Cholecystectomy completed [facility] 01/20/2023 09:27:02 hernia repair completed [facility] 01/20/2023 09:27:10 lithotripsy completed [facility] 01/20/2023 09:27:28 exploratory lumbar laminectomy completed [facility] 01/20/2023 09:28:02 Imaging Results None recorded. Procedure Notes None recorded. Medical Equipment None [...] Not Available Not Available Fluzone High-Dose Quad (PF) 240 mcg/0.7 mL IM syringe 02/28 [...] Updated DateTime 4 180.34 cm 27.3 kg/m2 21047.1 g 84 /min 16 /min 95 % 95 % 138 mm[Hg] 84 mm[Hg] Celestino Milligan [facility] 4 17:15:30 Social History Question Answer Notes LastModified by Organizat ion Details LastModified Time Tobacco Smoking Status Former Smoker QUIT 1995 Sabrina anthony [facility] 02/29/2020 13:08:14 Do You Have An Advance Directive? Yes [email or web address] Information not available 04/21/2020 What Is Your Level Of Alcohol Consumption? None [email or web address] Information not available 02/29/2020 Are You Blind Or Do You Have Difficulty Seeing? No Information not available 02/09/2021 What Is Your Level Of Caffeine Consumption? Occasional [email or web address] Information not available 02/29/2020 How Much Tobacco Do You Chew? None [email or web address] Information not available 02/29/2020 Are You Deaf Or Do You Have Serious Difficulty Hearing? No Information not available 02/09/2021 What Type Of Diet Are You Following? REGULAR [email or web address] Information not available 02/29/2020 Which Illicit Or Recreational Drugs Have You Used? NONE [email or web address] Information not available 02/29/2020 Do You Or Have You Ever Used E-cigarettes Or Vape? Never Used Electronic Cigarettes [email or web address] Information not available 02/29/2020 What Is Your Occupation? RETIRED [email or web address] Information not available 02/29/2020 Live Alone Or With Others? With Others [email or web address] Information not available 02/29/2020 Marital Status Informatio n not available 02/29/2020 What Was The Date Of Your Most Recent Tobacco Screening? 03/03/2020 [email or web address] Information not available 03/21/2020 Do You Or Have You Ever Used Smokeless Tobacco? Never Used Smokeless Tobacco [email or web address] Information not available 02/29/2020 How Much Tobacco Do You Smoke? No [email or web address] Information not available 04/21/2020 General Stress Level Low [email or web address] Information not available 02/29/2020 Sex: Unknown Functional Status Question Answer Note LastModified by Organizat ion Details LastModified Time Do you have difficulty walking or climbing stairs? No Information not available 02/09/2021 Do you have difficulty doing errands alone? No Information not available 02/09/2021 Do you have difficulty dressing or bathing? No Information not available 02/09/2021 What is your exercise level? Occasional [email or web address] Information not available 02/29/2020 Mental Status Question [...] 09:28:46 Unspecified Relation Myocardial infarction GEOFF Rose [email or web address] Not available 02/29/2020 13:07:54 Medical History Condition Response Diabetes Y Heart Disease Y Arrhythmia Y Anemia Y Hypertension Y Immunizations Vaccine Type Date Status Note Provider Nam e and Address Organization Details Recorded Time COVID-19, mRNA, LNP-S, PF, 100 mcg/0.5mL dose or 50 mcg/0.25mL dose 07/23/2020 cristal anthony [facility] 02/19/2021 18:08:46 COVID-19, mRNA, LNP-S, PF, 100 mcg/0.5mL dose or 50 mcg/0.25mL dose 08/13/2020 cristal anthony [place] [facility] 02/19/2021 18:08:58 COVID-19, mRNA, LNP-S, PF, 100 mcg/0.5mL dose or 50 mcg/0.25mL dose 02/17/2021 cristal anthony [facility] 02/19/2021 18:09:04 Past Encounters Encounter ID Performer Location Encounter Start Date Encounter Closed Date Diagnosis/Indication Diagnosis SNOMED-CT Code Diagnosis ICD10 Code [id number] Jarvis Burdick MD [place] OFF[facility] [address] [place] [address] 02/21/2024 16:59:28 02/21/2024 17:34:26 Cardiac arrhythmia 089599706 I49.9 Coronary arteriosclerosis 09401754 I25.10 Diabetes mellitus 931663 09 E11.9 Essential hypertension 30324377 I10 Chronic sy stolic heart failure 455956017 I50.22 Bradycardia 41629774 R00 .1 Dyslipidemia 667060717 E 78.5 Aortic valve stenosis 60 388128 I35.0 Health Concerns Section Related Observation LastModified by Organization Detai ls LastModified Time None Recorded Concern Status LastModified by Organization Details LastModified Time None Recorded Payers Encounter Date Sequence Insurance Name Policy Number Policy Zelaya Covered Member ID Zelaya Member ID Guarantor Name 02/21/2024 1 [facility] (MEDICARE REPLACEMENT HMO) [id number] Padmini Amador [id number] Padmini Amador Notes Date Note Type Note Provider Name and Address Organization Details Recorded Time 02/21/2024 text/html 02/21/24CC : Car diac follow [id number] male with PMH of Coronary artery disease s/p PCI to OM and LCx ([facility]) on Plavix, ASA, aortic valve stenosis s/p TAVR, Hypertension, CHF, diabetes mellitus mild anemia also in HEART-FID trial with Jacquelyn PA/BEBO, is Here for 6 month follow up [...] CHOL 144 LDL 100 HDL 35 09/26/2023 [id number] Previously:He is walking everyday with no problem. [...] revealing multi-vessel CAD. He was admitted to [facility] on 03/11/2020 with acute decompensated CHF, and NSTEMI, was transferred to [facility] for possible CABG. He was determined to be a poor candidate due to distal LAD disease, and was then referred to [facility] for PCI and possible TAVR. *He had PCI to OM and LCx at [facility]. He was discharged from [facility] with Lifevest which he is wearing in [...] congestive changes are suggested. Jarvis Burdick MD [address] [place], [address], [facility] 02/21/2024 17:28:37
--- OUTSIDE RECORDS SUMMARY | 2024-05-22 02:13 | XMS_ITS | Encounter Summary ---
Author Organization [facility] Health Address [address] [facility] [place] [address] Care Team Providers Care Barrel Assembler Helper Name Role Phone Floyd Mckinney MD Primary Care Provider + [phone] Reason for Visit * Reason Onset Date Comments Scheduling 05/02/2020 Encounter Details Date Type Department Care Team (Late st Contact Info) Description 05/02/2020 Telephone [facility] [address] [facility] [address] [place] [address] Kaylee Mccain, [place] GUIDE-SALES AND DISTRIBUTION CLERK [address] [place] [address] Scheduling Social History Tobacco Use Types Packs/Day Years [...] on file Sexual Orientation Not on file COVID-19 Exposure Response Date Recorded In the last month, have you been in contact with someone who was confirmed or suspected to have Coronavirus / COVID-19? 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/2020 10:39 AM DONATIONS ATTENDANT documented as of this encounter Functional Status Functional Status Response Date of [...] person have difficulty concentrating/remembering/making decisions? No 03/19/2020 documented as of this encounter Miscellaneous Notes * Telephone Encounter - Kaylee Mccain APRN-CNP - 05/02/2020 4:50 PM DONATIONS ATTENDANT Called and spoke to patient and his . Patient is feel great!!!! He is very thankful. Dicussed follow up appointment and gave address for [employer]. No ECHO scheduled at this time. May need to reschedule appointment for ECHO to be done same day. Will follow up with this next week. Message sent to front elevator operator for clarification on ECHO scheduling. OLIVIA Mills TIONS ATTENDANT documented in this encounter Plan of Treatment Not on file documented as of this encounter Visit Diagnoses Not on filedocumented in this encounter Care Teams Barrel Assembler Helper Relationship Specialty Start Date End Date Floyd Mckinney MD [address] [place] [address] PCP - General Internal Medicine 04/29/20 documented as of this encounter
--- OUTSIDE RECORDS SUMMARY | 2024-05-22 02:13 | XMS_ITS | Encounter Summary ---
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) Procedures ECHO COMPLETE Enrike Cronin MD [address] [place] [id number] [facility] [address] [facility], [address] [address] Referral ID Status Reason Start Date Expiration Date Visits Re quested Visits Authorized [id number] Closed 06/24/2020 06/24/2021 1 1 Encounter Details Date Type Department Care Team (Late st Contact Info) Description 08/05/2020 11:00 AM CDT Ancillary Procedure [facility] [address] [facility], [address] [id number] Social History Tobacco Use Types Packs/Day Years [...] on file Sexual Orientation Not on file documented as of this encounter Functional Status [...] No 03/19/2020 documented as of this encounter Plan of Treatment Not on file documented as of this encounter Procedures Procedure Name Priority Date/Time Associated Diagnosis Comments ECHO COMPLETE Routine 08/05/2020 11:26 AM CDT Class 2 congestive heart failure, chronic, combined (HCC) NSTEMI (non-ST elevated myocardial infarction) (HCC) Ischemic cardiomyopathy 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
--- OUTSIDE RECORDS SUMMARY | 2024-05-22 02:13 | XMS_ITS | Encounter Summary ---
Author Organization [facility] Address [address] [facility] [place] [address] Care Team Providers Care Cutter Apprentice Hand Name Role Phone Floyd Mckinney MD Primary Care Provider + [phone] Encounter Details Date Type Department Care Team (Late st Contact Info) Description 04/29/2020 Orders Only [facility] [address] [place] [address] Kaylee Mccain, WEB PRESS OPERATOR ASSISTANT-SIGNAL INTELLIGENCE/ELECTRONIC WARFARE [address] [place] [address] Aortic valve stenosis, etiology of cardiac valve disease unspecified Social History Tobacco Use Types Packs/Day Years [...] COVID-19? 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
--- OUTSIDE RECORDS SUMMARY | 2024-05-22 02:13 | XMS_ITS | Encounter Summary ---
Author Organization [facility] Address [address] [place] [address] Care Team Providers Care Handbag Frames Inspector Name Role Phone Floyd Mckinney MD Primary Care Provider [phone] Reason for Visit * Auth/Cert Specialty Diagnoses / Procedures Referred By Contac t Referred To Contact Diagnoses Aortic valve stenosis, etiology of cardiac valve disease unspecified Procedures CCL TRANSCATHETER AORTIC VALVE REPLACEMENT Referral ID Status Reason Start Date Expiration Date Visits Re quested Visits Authorized [id number] 1 1 Encounter Details Date Type Department Care Team (Late st Contact Info) Description 04/29/2020 7:39 AM CATALOG LIBRARIAN - 04/30/2020 5:20 PM [facility] Hospital Encounter SL 4N ICU [address] [place] [address] Jay Stewart MD [address] [facility], [facility] [address] [place] [address] Adult Cardiology Discharge Disposition: Home or Self Care Social History Tobacco Use Types Packs/Day Years [...] COVID-19? 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/2020 10:39 AM CATALOG LIBRARIAN documented as of this encounter Last Filed Vital Signs Vital Sign Reading Time Taken Comments Blood Pressure 98/56 04/30/2020 2:00 PM CATALOG LIBRARIAN Pulse 66 04/30/2020 2:00 PM CATALOG LIBRARIAN Temperature 37.3 ??C (99.1 ??F) 04/30/2020 8:00 AM CS T Respiratory Rate 15 04/30/2020 8:00 AM CATALOG LIBRARIAN Oxygen Saturation 98% 04/30/2020 2:00 PM CATALOG LIBRARIAN Inhaled Oxygen Concentration - - Weight 87.2 kg (192 lb 3.2 oz) 04/29/2020 8:05 A M CATALOG LIBRARIAN Height 175.3 cm (5' 9 ) 04/29/2020 1:43 PM CATALOG LIBRARIAN Body Mass Index 28.38 04/29/2020 8:05 AM CATALOG LIBRARIAN documented in this encounter Functional Status Functional Status Response [...] No 03/19/2020 documented as of this encounter Discharge Summaries * Oliver Biggs MD - 04/30/2020 5:20 PM CST Physician Discharge Summary Patient ID: Padmini Rios [id number] 79 year old 1940 Admit date: 04/29/2020 Discharge date and time: 04/30/20 Admitting Physician: Oliver Biggs MD Discharge Physician: Feliciano Viveros MD Admission Diagnoses: -Severe Aortic stensosis -Moderate mitral insufficiency -Essential hypertension -Type 2 diabetes mellitus with diabetic nephropathy, 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 -HLD -BPH -Normocytic Anemia Discharge Diagnoses: -Severe Aortic stensosis -Moderate mitral insufficiency -Essential hypertension -Type 2 diabetes mellitus with diabetic nephropathy, 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 -HLD -BPH -Normocytic Anemia Admission Condition: fair Discharged Condition: Good Indication for Admission: Severe aortic stenosis for TAVR Hospital Course: Padmini Rios??is a 79 year old??male??Padmini Rios??is a 79 year old??male??with PMH of CAD, HLD, HTN, BPH, T2DM, and psoriasis??who presented??for scheduled??TAVR. Patient in February had NSTEMI and had PCI to OM with partial improvement in dyspnea. However he continued to have TOVAR and patient was scheduled for TAVR. Patient had TAVR, with successful placement of??Medtronic Evolut R??34??Transcatheter Heart Valve??on 04/29/20 without complication.??Once on unit patient VSS, A&Ox3.??EKG without arrhythmia.??Patient tolerating PO intake. Catheter access sites without hematoma. TTE reviewed with normal mean gradient of 3 mmHg. There is mild paravalvular regurgitation. EKG without new onset arrhtyma s/p TAVR. Patient discharge home with follow up in [address] Biggs Consults: CTS Significant Diagnostic Studies: See hospital course MATT 04/29/20:Summary Severely dilated left ventricular cavity size and severely reduced left ventricular ejection fraction. Visually estimated LV EF is 25-30%. Normal right ventricular size. Reduced right ventricular systolic function on visual estimation. The aortic valve is trileaflet with severe diffuse calcification and reduced cusp motion. There is severe low-flow low-gradient aortic stenosis with a peak velocity of 2.6 m/sec, mean gradient of 16 mmHg, aortic valve area of 0.5 cm??, and an NSDI of 0.16. There is mild aortic regurgitation. POST TAVR: well seated bioprosthetic aortic valve. mild paravalvular regurgitaiton. Normal aortic valve mean gradient of 8 mmHg and max velocity of 2.1 m/s. There is moderate mitral regurgitation. ERO area by PISA is 0.13 cm2 and by volumentric method is 0.26 cm2. Regurgitant volume is 38 mL and RF is 59% by volumetric method. Left atrial appendage is free of thrombus formation. TTE 04/30/20:Summary Technically difficult/suboptimal echocardiogram. There is severe eccentric left ventricular hypertrophy. The left ventricle is severely increased in size. Left ventricular segmental wall motion is abnormal, please see wall motion graphic. Left ventricular systolic function is severely decreased with an ejection fraction by Biplane Method of Discs of 26 %. The left ventricular diastolic function is abnormal (Grade III), consistent with elevated left ventricle filling pressures. S/p 34 mm Evolut Pro TAVR with normal mean gradient of 3 mmHg. There is mild paravalvular regurgitation. There is moderate, eccentric tricuspid regurgitation. Moderate pulmonary hypertension, estimated pulmonary arterial systolic pressure is 62 mmHg. Treatments: See hospital course -Per Dr. Biggs note Procedure: 1. Rt common femoral artery retrograde access using micropuncture needle under US guidance 2. Lt common femoral venous access using micropuncture needle under US guidance 3. Lt common femoral retrograde access by percutaneous FA approach using micropuncture needle underUS and angiogram guidance 4 Temporary RV transvenous pacemaker placement 6. Aortic root and arch angiography 7. Pre balloon aortic valvuloplasty 8. Transcatheter aortic valve implantation with a Medtronic Evolut R 34 Transcatheter Heart Valve 10. [place] cerebral protection device deployment Discharge Exam From day of discharge: Vitals Temp: [95.2 ??F (35.1 ??C)-99 ??F (37.2 ??C)] 98.8 ??F (37.1 ??C) Pulse: [66-89] 76 Resp: [7-29] 14 BP: (87-115)/(55-71) 94/64 Arterial Line BP #1: (90-132)/(0-66) 105/46 I/O last 2 completed shifts: In: 860 [P.O.:860] Out: 2350 [Urine:2350] ?? General: Alert, NAD, pleasant and cooperative HEENT: NCAT, sclera non-icteric MMM Neck: Supple, non-tender. No JVD Cardio: RRR, no murmur noted Resp: Lungs clear to auscultation bilaterally, no wheezes, rhonchi, or crackles Abdomen: Soft, non-tender, non-distended, bowel sounds normal Extremities: Radial and DP pulses 2+ bilaterally, no edema, warm extremities, Right and left femoral access site without hematoma. TR band deflated on R wrist, no hematoma. Skin: No rash or lesions Neuro: A&Ox3, BEE, no focal deficits Disposition: Discharge home with follow up in Valve clinic and with primary cna ltc Patient Instructions: Care after Transcatheter Aortic Valve Replacement (TAVR) Please continue to hold your metformin on 04/30 and 05/01. You can restart your metformin on 05/02. We will call you with the information on your follow up. You have an appointment with Dr. Biggs Jun 04, 2020 @[facility]. [address] [place] [address] What to do at home: -every morning at the same time, wearing the same clothes (underwear or naked), using the same scale, after you urinate and before you eat breakfast. Keep record of this weight to bring with you to your follow up appointment. Activity instructions: -avoid lifting, pushing, or pulling any object over 10 lbs for 10 days after procedure (a gallon ofPopularo weights 9 lbs) -avoid driving for 1 week after procedure, you may ride as passenger. -walk daily as tolerated -you may climb stairs but take your time and limit the amount of times you take the stairs until you feel comfortable. Diet: -return to your normal diet after discharge most often this should be a 2 gram salt diet that is low in fat and heart healthy -avoid adding salt to food, canned, processed, and frozen foods -limit caffeine intake to 1-2 cups of coffee daily How to take care of procedure site: -you may remove the dressing tomorrow -do not scrub the area -you may shower but do not allow the shower to spray directly on the sites -allow mild soap and water to run freely over the sites -use a clean towel and wash cloth with every shower -avoid baths, swimming pools, and hot tubs until the sites are completely healed, or for at least 10 days -do not use lotion, ointment, powders, or anything else on the sites -keep area clean and dry -if desired a piece of dry gauze or bandaide can be placed over the sites to protect from rubbing and sweat -inspect daily for the signs of infection as follows: -redness -swelling -increased pain -increased bruising -foul smelling drainage at the incision sites -temperature above 100.5 degrees Fahrenheit How to manage pain or discomfort: -you may experience soreness in the lower abdomen (stomach/groin), and wrist. -you can use tylenol or acetaminophen over the counter as directed for this discomfort unless otherwise advised. -place dry gauze or bandaide over access sites if rubbed by clothes or irritated by skin folds -ice to the area for 20 minutes at a time Important to remember: -keep your valve identification card with you at all times -this device will not set off a metal detector -the device is visible on Xray but will not hamper with any medical imaging (X- rays, CT scans, or MRI scans), you should still notify providers of the valve before having the imaging done -it will take time to feel back to your normal self -take naps and rest allow yourself time to recover -don't be afraid to ask for help -if you develop feelings of extreme sadness, hopelessness or thoughts of hurting yourself seek medical attention immediately. Follow up: -you will return to the valve clinic in 30 days to see the provider and have an echocardiogram -you will need to schedule a follow up appointment with your cna ltc and your PCP within in 6 weeks of your TAVR -you will need to have another echocardiogram in 1 year after the procedure -you will need to take antibiotics before dental procedures to prevent infection; you will need to inform both your PCP and dentist of your new heart valve placement -continue taking aspirin and Plavix daily for at least the first 6 months after your procedure or until you are directed otherwise. When To Seek Emergency Care: Call 911 if you develop: -sudden onset of chest pain -shortness of breath that doesn't get better by resting -swelling your hands, feet, or ankles -sudden confusion or trouble speaking or understanding speech -sudden trouble seeing in one or both eyes -sudden numbness or weakness of the face, arm, or leg, especially on one side of your body -sudden trouble walking, dizziness, or loss of balance or coordination -sudden or severe headache with no known cause -if legs become numb, tingly, cold, or look blue -bowel movements that are dark black or bright red -thoughts of hurting yourself -if you believe you are experiencing a true medical emergency When to seek medical attention: -temperature above 100.5 degrees Fahrenheit -bleeding, redness, swelling, increase in bruising, red streaking, increased pain or foul smelling drainage near the procedure site -increased swelling in your legs or ankles -weight gain 3 lbs in one day or 5 lbs in one week -inability to urinate -nausea, vomiting, or diarrhea -excessive sweating or chills Thank you for letting us take care of you! [facility] TAVR Team This list of medications is preliminary and tentative: please see the Patient Discharge Instructions for patient's discharged home or the Facility Transfer Order for the final and accurate medications list. Discharge Medication List as of 04/30/2020 3:03 PM START taking these medications Details atorvastatin (LIPITOR) 80 MG tablet Disp-30 tablet, R-5, Take 1 tablet by mouth at bedtime, ePrescribe CONTINUE these medications which have NOT CHANGED Details aspirin (ASPIRIN) 81 MG chew tablet Disp-30 tablet, R-11, Take 1 tablet by mouth once daily, ePrescribe SHAKA CONTOUR NEXT TEST test strip AMBREEN, Historical Medication clopidogrel (PLAVIX) 75 MG tablet Disp-30 tablet, R-11, Take 1 tablet by mouth once daily, ePrescribe furosemide (LASIX) 20 MG tablet Disp-30 tablet, R-3, Take 1 tablet by mouth once daily, ePrescribe lisinopril (PRINIVIL; ZESTRIL) 2.5 MG tablet Disp-30 tablet, R-3, Take 1 tablet by mouth once daily, ePrescribe metFORMIN CR 24hr modified (GLUMETZA) 1000 MG (MOD) tablet Take 1,000 mg by mouth 2 times daily, Historical Medication metoprolol succinate XL 24hr (TOPROL XL) 25 MG tablet Take 12.5 mg by mouth once daily, Historical Medication tamsulosin (FLOMAX) 0.4 MG capsule Take 0.4 mg by mouth once daily At the same time every day aftera meal., Historical Medication Joselito Clark MD, 04/30/2020 at 6:36 PM ATTENDING PHYSICIAN NOTE Patient seen and examined with the resident. I confirm the history, exam, assessment and plan. In addition I note: Interval history: NO acute events Exam: BP 98/56 Pulse 66 Temp 99.1 ??F (37.3 ??C) Resp 15 Ht 5' 9 Wt 192 lb 3.2 oz SpO2 98% BMI 28.38 kg/m2 Head and neck: No JVD Chest: CTAB Cardiac: S1 S2 no mumur LE: No edema Medications were reviewed; please see the fellow's note for complete list. Data Review: pertinent lab and cardiac data reviewed Assessment/Plan: Shireen CALHOUN, s/p TVAR Medtronic evolute pro plus 34, feels much better today and groin site with no hemtoma or bleed, ambulant, plan cont DAPT and f/u with TTE in one month Please see the fellow's note for further details. LOG LIBRARIAN documented in this encounter Discharge Instructions * Discharge Instructions* Joselito Clark MD - 04/30/2020 3:06 PM CATALOG LIBRARIAN Care after Transcatheter Aortic Valve Replacement (TAVR) Please continue to hold your metformin on 04/30 and 05/01. You can restart your metformin on 05/02. We will call you with the information on your follow up. You have an appointment with Dr. Biggs Jun 04, 2020 @[facility]. [address] [place] [address] What to do at home: -every morning at the same time, wearing the same clothes (underwear or naked), using the same scale, after you urinate and before you eat breakfast. Keep record of this weight to bring with you to your follow up appointment. Activity instructions: -avoid lifting, pushing, or pulling any object over 10 lbs for 10 days after procedure (a gallon ofmilk weights 9 lbs) -avoid driving for 1 week after procedure, you may ride as passenger. -walk daily as tolerated -you may climb stairs but take your time and limit the amount of times you take the stairs until you feel comfortable. Diet: -return to your normal diet after discharge most often this should be a 2 gram salt diet that is low in fat and heart healthy -avoid adding salt to food, canned, processed, and frozen foods -limit caffeine intake to 1-2 cups of coffee daily How to take care of procedure site: -you may remove the dressing tomorrow -do not scrub the area -you may shower but do not allow the shower to spray directly on the sites -allow mild soap and water to run freely over the sites -use a clean towel and wash cloth with every shower -avoid baths, swimming pools, and hot tubs until the sites are completely healed, or for at least 10 days -do not use lotion, ointment, powders, or anything else on the sites -keep area clean and dry -if desired a piece of dry gauze or bandaide can be placed over the sites to protect from rubbing and sweat -inspect daily for the signs of infection as follows: -redness -swelling -increased pain -increased bruising -foul smelling drainage at the incision sites -temperature above 100.5 degrees Fahrenheit How to manage pain or discomfort: -you may experience soreness in the lower abdomen (stomach/groin), and wrist. -you can use tylenol or acetaminophen over the counter as directed for this discomfort unless otherwise advised. -place dry gauze or bandaide over access sites if rubbed by clothes or irritated by skin folds -ice to the area for 20 minutes at a time Important to remember: -keep your valve identification card with you at all times -this device will not set off a metal detector -the device is visible on Xray but will not hamper with any medical imaging (X- rays, CT scans, or MRI scans), you should still notify providers of the valve before having the imaging done -it will take time to feel back to your normal self -take naps and rest allow yourself time to recover -don't be afraid to ask for help -if you develop feelings of extreme sadness, hopelessness or thoughts of hurting yourself seek medical attention immediately. Follow up: -you will return to the valve clinic in 30 days to see the provider and have an echocardiogram -you will need to schedule a follow up appointment with your cna ltc and your PCP within in 6 weeks of your TAVR -you will need to have another echocardiogram in 1 year after the procedure -you will need to take antibiotics before dental procedures to prevent infection; you will need to inform both your PCP and dentist of your new heart valve placement -continue taking aspirin and Plavix daily for at least the first 6 months after your procedure or until you are directed otherwise. When To Seek Emergency Care: Call 911 if you develop: -sudden onset of chest pain -shortness of breath that doesn't get better by resting -swelling your hands, feet, or ankles -sudden confusion or trouble speaking or understanding speech -sudden trouble seeing in one or both eyes -sudden numbness or weakness of the face, arm, or leg, especially on one side of your body -sudden trouble walking, dizziness, or loss of balance or coordination -sudden or severe headache with no known cause -if legs become numb, tingly, cold, or look blue -bowel movements that are dark black or bright red -thoughts of hurting yourself -if you believe you are experiencing a true medical emergency When to seek medical attention: -temperature above 100.5 degrees Fahrenheit -bleeding, redness, swelling, increase in bruising, red streaking, increased pain or foul smelling drainage near the procedure site -increased swelling in your legs or ankles -weight gain 3 lbs in one day or 5 lbs in one week -inability to urinate -nausea, vomiting, or diarrhea -excessive sweating or chills Thank you for letting us take care of you! [facility] Health TAVR Team LOG LIBRARIAN documented in this encounter Medications at Time of Discharge Medication Sig Dispensed Refills Start Date End Date aspirin (ASPIRIN) 81 MG chew tablet Take 1 tablet by mouth once daily 30 tablet 11 03/19/2020 SHAKA CONTOUR NEXT TEST test strip 04/12/2020 clopidogrel (PLAVIX) 75 MG tablet Take 1 tablet by mouth once daily 30 tablet 11 03/19/2020 furosemide (LASIX) 20 MG tablet Take 1 tablet by mouth once daily 30 tablet 3 03/19/2020 metFORMIN CR 24hr modified (GLUMETZA) 1000 MG (MOD) tablet Take 1,000 mg by mouth 2 times daily metoprolol succinate XL 24hr (TOPROL XL) 25 MG tablet Take 25 mg by mouth once daily 04/14/2020 tamsulosin (FLOMAX) 0.4 MG capsule Take 0.4 mg by mouth once daily At the same time every day after a meal. atorvastatin (LIPITOR) 80 MG tablet Take 1 tablet by mouth at bedtime 30 tablet 5 04/30/2020 06/18/2020 lisinopril (PRINIVIL; ZESTRIL) 2.5 MG tablet Take 1 tablet by mouth once daily 30 tablet 3 03/19/2020 06/24/2020 documented as of this encounter Progress Notes * Kaylee Mccain APRN-CNP - 04/30/2020 1:49 PM CST Structural Heart Progress Note Patient in good spirits up in bed. Seen and examined with Dr. Biggs. Patient reports he is ready to go home. He had no difficulty ambulating and immediately felt decrease in symptoms upon waking from procedure. He reports he has had a bowel movement today and is voiding with no difficulty. Groin sites are c/d/i, soft to touch and non tender bilaterally. Pulses intact throughout. Neurovascularly intact throughout. A&O x 4. Discussed need to continue wearing lifevest. Follow up in [address] Biggs with ECHO and continue with primary cna ltc Dr. Burdick. ECHO, EKG, and procedural note faxed to Dr. Burdick today. Patient and understand we will be in touch with date and time of appointment. This information added to discharge note. Patientto continue holding metformin until 05/02. Schedule appointment with PCP and obtain referral for Dr. Biggs. No further questions at this time. OLIVIA Mills LOG LIBRARIAN * Ruth Carnes RN - 04/30/2020 10:27 AM CST Case Management Initial Assessment Case Management screen completed & Welcome Letter given. Anticipated level of care at discharge: Home Discharge Plans: Discharge to home Basic Needs Assessment (BNA) Score: 8 Recommended Interventions for Patient:: None Comment: Met with patient Lives with: Spouse Family Support (name and phone): Extended Emergency Contact Information Primary Emergency Contact: Britni Rios Mobile Relation: Spouse Patient or fundraising sale representative requests care coordination reach out to family or caregiver listed above regarding discharge planning and at time of discharge? No Anticipated Discharge Date: 04/30/20 Prior Level of Functioning: Patient is independent at home and is using no equipment or services atthis time. Patient lives with his in a single family and is supportive and will assist with needs at discharge Anticipated level of care at discharge: Home Transportation at Discharge: Family Transportation to MD appointments: Drives self Equipment at Home: Equipment At Home: None Additional equipment needed at home but does not have: Equipment needs will depend on needs and recommendations at dsicharge If no PCP, action taken: PCP verifed Pharmacy benefit: Yes Medication affordability concerns: No Food Security: Within the past 12 months we worried whether our food would run out before we got money to buy more: Never true Within the past 12 months the food we bought just didn't last and we didn't have money to get more:Never true Overhead Irrigator Referral: No If patient requires HHC at discharge, he/she requests: Patient has no HHC in place at this time. HHC at discharge will depend on needs and recommendations at discharge. No anticipated needs at this time. Will continue to follow. For any questions or needs please contact: Comments: patient is in the ICU at this time. Patient is post TAVR. will pick the patient up at discharge. Nut And Bolt Assembler Name/Phone number: Ruth Carnes RN [phone] LOG LIBRARIAN * Joselito Clark MD - 04/30/2020 7:17 AM CST Images from the original note were not included. MICU PROGRESS NOTE Name: Padmini Rios (79 year old male) Hospital Day: 1 SUBJECTIVE BRIEF HOSPITAL COURSE: Padmini Rios is a 79 year old male Padmini Rios??is a 79 year old??male??with PMH of CAD, HLD, HTN, BPH, T2DM, and psoriasis??who presented for scheduled TAVR. Patient in February had NSTEMI and had PCI to OM with partial improvement in dyspnea. However he continued to have TOVAR and patient was sc heduled for TAVR. Patient had TAVR, with successful placement of Medtronic Evolut R??34??Transcatheter Heart Valve on 04/29/20 without complication. Once on unit patient VSS, A&Ox3. EKG without arrhythmia. Patient tolerating PO intake. Catheter access sites without hematoma. INTERVAL HISTORY: -Patient states he is feeling well. No chest pain, sob, abdominal pain, pain at access sites. -Asking when he can go home. -Echo being done at bedside. OBJECTIVE Temp: [95.2 ??F (35.1 ??C)-99 ??F (37.2 ??C)] 98.8 ??F (37.1 ??C) Pulse: [66-89] 76 Resp: [7-29] 14 BP: (87-115)/(55-71) 94/64 Arterial Line BP #1: (90-132)/(0-66) 105/46 I/O last 2 completed shifts: In: 860 [P.O.:860] Out: 2350 [Urine:2350] General: Alert, NAD, pleasant and cooperative HEENT: NCAT, sclera non-icteric MMM Neck: Supple, non-tender. No JVD Cardio: RRR, no murmur noted Resp: Lungs clear to auscultation bilaterally, no wheezes, rhonchi, or crackles Abdomen: Soft, non-tender, non-distended, bowel sounds normal Extremities: Radial and DP pulses 2+ bilaterally, no edema, warm extremities, Right and left femoral access site without hematoma. TR band deflated on R wrist, no hematoma. Skin: No rash or lesions Neuro: A&Ox3, BEE, no focal deficits Medications ??? 0.9% NaCl 3 mL Intracatheter q8h ??? aspirin 81 mg Oral QDAY ??? atorvastatin 80 mg Oral AT BEDTIME ??? clopidogrel 75 mg Oral QDAY ??? enoxaparin 40 mg Subcutaneous QDAY ??? furosemide 20 mg Oral QDAY ??? insulin aspart 0-6 Units Subcutaneous TID WC ??? lisinopril 2.5 mg Oral QDAY ??? magnesium sulfate 4 g Intravenous Once ??? metoprolol succinate XL 24hr 12.5 mg Oral QDAY ??? perflutren Lipid Microsphere 0.5 mL Intravenous intra-Procedure multiple ??? tamsulosin 0.4 mg Oral QDAY Labs, Microbiology, Imaging: CBC: Recent Labs Component Name 04/30/20 0350 04/29/20 1641 04/25/20 1132 WBC 7.1 7.9 8.1 HGB 9.8* 10.4* 11.7* BMP: Recent Labs Component Name 04/30/20 0350 04/29/20 1641 04/25/20 1132 NA 135* 135* 135* CL 102 102 97* CO2 26 24 26 BUN 14 17 19 CREATININE 0.8 0.7 1.1 Imaging TTE 03/17/20 Summary: -Severe ICM with > 50% LV scar, low output state (cardiac output 2.8 L/min, index 1.36 L/min/M2), severe senilecalcific low stroke volume aortic stenosis, moderately severe 3+ functional and calcific MR, borderline mitral stenosis, severe atrial dilatation, high left heart filling pressure, moderate pulmonary vascular dysfunction, mild TR, elevated venous pressure, dialted hypokinetic RV, and moderate mixed pulmonary hypertension. No prior ECHO for comparison. LVEF 27 %. ?? MATT 04/29/20: Pending ?? LHC 03/18/20: ANGIOGRAPHY: ?i.?Left main: Bifurcates into LAD and Circumflex. Mild luminal irregularities Noted. ?ii.?LAD: Proximal LAD has mild diffuse 10-20% stenosis. Mid LAD has diffuse Moderate 30-40% disease. Apical LAD has MANAGER BODY. ?iii.?LCx: Dominant vessel. Proximal and mid mild luminal irregularities. Distal Circumflex has a focal 80% stenotic segment. It then gives of LPDAthat has severe 70% diffuse disease. Gives off OM1 and a large bifurcating OM2 branches. OM2 has proximal calcified severe 70% focal stenotic lesion. It then gives off superior and inferior branches.Superior branch has a focal 90% stenotic segment. ?iv.?RCA: Non dominant vessel. Has mild luminalirregularities throughout. ? DOMINANCE: Left ?? DIAGNOSTIC INTERPRETATIONS: 1. 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 ?INTERVENTIONAL CONCLUSIONS: 1. Successful implantation of 2.5 x 15 mm Xience Karla Drug Eluting Stent in the distal circumflex. 2. Successful implantation of 3.5 x 12 mm Xience Karla Drug Eluting Stent in proximal OM2 branch. 3. Successful implantation of 2.25 X 12 Xience Karla Drug Eluting stent in the superior branch of OM2. ?? 04/29/20 EK04/30/20 EKG:pending 04/30/20 MATT: pending ASSESSMENT & PLAN Padmini Rios is a 79 year old male Padmini Rios??is a 79 year old??male??with PMH of ICM HFrEF,HLD, HTN, BPH, T2DM, and psoriasis??who presented s/p TAVR. ?? Neurologic No active problems. ?? Cardiovascular #Severe s/p TAVR -Patient with severe on TTE 03/18/20, MATT prior to procedure unchanged. -Valve type: Medtronic Evolut R??34??Transcatheter Heart Valve -Femoral access -Please see Procedure note by Dr. Biggs for full procedure. -Valve was delivered in cusp overlap view (technique) and in non coronary depth was 1 mm and in noncoronary cusp, the depth is 3 mm. ??Postimplant MATT and supravalvular aortography revealed trivial to mild??paravalvular leak. ??Mean gradient was 8??mmHg. -Right and left femoral sites without hematoma, no retained sheaths. TR band on right wrist. -Hgb pending, BMP pending PLAN: -Monitor femoral access for hematoma -EKG and limited echo ordered for 04/30/20, follow up results -Continue ASA 81mg and Plavix 75mg daily, statin -Tele to monitor for arrhythmias -Cardiology follow up scheduled. ?? #ICM HFrEF27% #HTN #HLD -Last echo 03/18/20 Reviewed as per above -Continue Metoprolol succinate 12.5 daily, Lisinopril 2.5mg daily, lasix 20mg daily ?? Pulmonary No active problems. ?? GI No active problems. ?? Renal / Electrolytes / Acid-Base No active problems. -replete lytes: K>4, Mag>2, Phos>3 Endocrine #T2DM -last A1c 6.5 -on Metformin 1000mg bID and glimepiride??2 MG tablet home -SSI and accuchecks ?? Infectious Diseases No active problems. ?? Hematology / Oncology #Normocytic anemia -Hgb stable -May be 2/2 anemia of chronic dz vs iron deficiency. -CBC daily, transfuse Hgb <7 ?? MSK No active problems. ?? #BPH -Flomax and finasteride ? Prophylaxis VTE risk: moderate. Pharmacologic thromboprophylaxis is indicated. - Continue SCDs. - Continue enoxaparin 40 mg QDAY SubQ. ?? Stress ulcer risk: low. Stress ulcer prophylaxis not indicated. ?? Lines / Drains / Airways Peripheral IV (x 1) Diet DIET DIABETIC CONSIST CARB CARDIAC Activity Level: As tolerated Weight bearing: No restrictions (WBAT) Consults None Disposition Possible discharge today Code Status Full Code ?? Plan not final until attested by cardiology attending, Dr. Viveros. Joselito Clark MD Internal Medicine, PGY-2 04/30/2020 7:18 AM LOG LIBRARIAN Associated attestation - Feliciano Viveros MD - 04/30/2020 3:22 PM CATALOG LIBRARIAN ATTENDING PHYSICIAN NOTE Patient seen and examined with the resident. I confirm the history, exam, assessment and plan. In addition I note: Chief complaint: TAVR History: as resported by resident. 04/30/20 No complications. Feels much better. ECHO with mild anterolateral PVL. AV mean gradient 3-4 mmHg. MR already reduced to mild and volume 10-15 ml. Right heart and LV similar. EF remains 25%. No effusion. No complications. Dc home. [place] TAVR. Social History Socioeconomic History Marital status: Spouse name: Not on file Number of children: Not on file Years of education: Not on file Highest education level: Not on file Occupational History Not on file Tobacco Use Smoking status: Never Smoker Smokeless tobacco: Never Used Substance and Sexual Activity Alcohol use: Never Frequency: Never Drug use: Never Sexual activity: Not on file Other Topics Concerns: Not on file Social History Narrative Not on file family history includes CAD (Coronary Artery Disease) in his brother, brother, father, mother, and sister; Diabetes - Type 2 in his mother; Heart Failure in his brother and brother; Renal Disease in his brother. No Known Allergies Past Medical History: No date: CAD (coronary artery disease) No date: HFrEF (heart failure with reduced ejection fraction) No date: HLD (hyperlipidemia) No date: HTN (hypertension) No date: MO (myocardial infarction) No date: Psoriasis A full 12 point review of systems was performed and was otherwise negative besides what was mentioned in the HPI. Exam: BP 98/56 Pulse 66 Temp 99.1 ??F (37.3 ??C) Resp 15 Ht 5' 9 (1.753 m) Wt 192 lb 3.2 oz (87.2 kg) SpO2 98% BMI 28.38 kg/m2 NAD. HEENT: neck supple. Atraumatic. Cor: RRR. JVD/V wave/HJR. 1/6 CECILIA, 1-2/6 HSM LSB and apex, A2 loud P2 soft S3 Resp: no rales bilaterally. GI: soft. NT. Ext: no edema Medications were reviewed; please see the resident's note for complete list. Data Review: pertinent lab and cardiac data reviewed Lab Results: Recent Labs Component Name 04/30/20 0350 04/29/20 1641 04/25/20 1132 WBC 7.1 7.9 8.1 HGB 9.8* 10.4* 11.7* HCT 30.2* 32.9* 36.4* PLTCOUNT 111* 122* 178 Recent Labs Component Name 04/30/20 0350 04/29/20 1641 04/25/20 1132 POTASSIUM 4.1 4.7* 4.5 CO2 26 24 26 BUN 14 17 19 CREATININE 0.8 0.7 1.1 GLUCOSE 107 145* 51* CALCIUM 7.9* 8.0* 9.1 Recent Labs Component Name 04/25/20 1132 03/16/20 0530 03/15/20 2356 03/15/20 1624 03/14/20 2317 03/14/20 2317 INR 1.1 - - - - 1.1 PT 13.4 - - - - 14.0 PTT - 89.0* 76.8* >200.0* - 35.3 - = values in this interval not displayed. Recent Labs Component Name 04/29/20 1641 04/25/20 1132 03/14/20 2316 ALKPHOS 59 70 69 ALT 9 12 17 AST 17 18 22 No results for input(s): TSH in the last 88676 hours. No results for input(s): CKMB, TROPONIN, MYOGLOBIN in the last 21111 hours. No results for input(s): PHART, BYB0HUH, PO2ART, E8DHAPKY, ECP9CLJ, BEART, FIO2 in the last 05609 hours. Recent Labs Component Name 03/15/20 0630 CHOL 115 HDL 35* TRIG 75 LDLCALC 65 ECG reviewed: NSR, LAE, FAVB, IMI, PRP, Anterior MO. CXR reviewed: Clear with PVR and CM Severe ischemic cardiomyopathy with > 50% LV scar, low output state (cardiac output 2.8 L/min, index 1.36 L/min/M2), severe senile calcific low stroke volume aortic stenosis, moderately severe 3+ functional and calcific MR, borderline mitral stenosis, severe atrial dilatation, high left heart filling pressure, moderate pulmonary vascular dysfunction, mild TR, elevated venous pressure, dialted hypokinetic RV, and moderate mixed pulmonary hypertension. No prior ECHO for comparison. The left ventricle is severely increased in size (systolic volume index 99 ml/M2 indicative of adverse prognosis).. Left ventricular systolic function is severely decreased with an ejection fraction by Biplane Method of Discs of 27 %. The inferior wall, apical cap, basal inferoseptal, basal anterolateral wall, mid anterolateral wall, basal inferolateral wall, and mid inferolateral wall are akinetic. The anterior wall, anteroseptal wall, apical septum, apical lateral wall, and mid inferoseptal are hypokinetic. There is severe eccentric left ventricular hypertrophy. The left ventricular diastolic function parameters are abnormal suggesting moderately severely elevated LA pressure. The right ventricular cavity size is moderately enlarged. Mildly reduced right ventricular systolic function/global hypokinesis. The left atrium is severely enlarged. The right atrium is severely enlarged. Estimated right atrial pressure 13 mmHg. Severe decreased mobility of the coronary cusps. Generalized moderate to severe calcification of the coronary cusps. There is severe aortic stenosis with a peak velocity of 2.7 m/sec, mean gradient of 17 mmHg, aorticvalve area of 0.7 cm??, and an NSDI of 0.17. There is trace aortic regurgitation. Aortic valve regurgitant fraction by pulsed Doppler quantitative flow method is 2 %, Trace. Normal PVR of 6.4 Wood units. The mitral valve leaflets are calcified. Severe decreased mobility of the posterior mitral valve leaflet. There is borderline mitral stenosis. Area index 1.1 cm2/M2. Mitral valve effective orifice area by PISA is 2.87 cm2. Mitral valve area by 2D Planimetry is 2.50 cm2. Mitral valve diastolic mean gradient is 2 mmHg. There is moderate to severe calcific functional mitral regurgitation. Mitral valve effective regurgitant orifice by PISA is 0.23 cm??, moderate to severe. Mitral valve regurgitant volume by PISA is 30.53 ml, moderate to severe. Mitral valve regurgitant fraction by pulsed Doppler quantitative flow method is 41 %. There is mild tricuspid regurgitation. Moderate pulmonary hypertension, estimated pulmonary arterial systolic pressure is 56 mmHg/mean PA pressure of 40-44 mmHg. The aortic root at the sinus of valsalva is normal in size measuring 3.38 cm with an index of 1.64 cm/m2. Grade III atheromatous disease seen in the aortic root and ascending aorta. No pericardial effusion. Assessment/Plan: Severe low gradient with moderate MS and MR. Ischemic cardiomyopathy. High probability of benefit with 34 mm CoreValve EVOLUT Pro Plus TAVR. No clots in LV. Proceed withprocedure. All other issues in order. MATT with TAVR. 04/30/20 No complications. Feels much better. ECHO with mild anterolateral PVL. AV mean gradient 3-4 mmHg. MR already reduced to mild and volume 10-15 ml. Right heart and LV similar. EF remains 25%. No effusion. No complications. Dc home. [place] TAVR. DC and FU with Dr Lance. Please see the resident's note for further details. Feliciano Viveros MD, F.A.C.C. blueprint cutter 04/30/2020 3:10 PM * Ghada Kwon RN - 04/29/2020 11:37 PM CST Problem: Hemodynamic Status/Cardiac Output Goal: Patient has stable vital signs and fluid balance Outcome: Ongoing Problem: Fluid and Electrolyte Imbalance Goal: Fluid and electrolyte balance are achieved/maintained Outcome: Ongoing Problem: Oxygenation/Respiratory Function Goal: Resp rate/effort will be within specified limits Outcome: Ongoing Problem: Activity Intolerance/Impaired Mobility Goal: Mobility/activity is maintained at optimum level for patient Outcome: Ongoing LOG LIBRARIAN * Kaylee Mccain APRN-CNP - 04/29/2020 2:30 PM CST Structural Heart Progress Note Patient in bed with Nurse at bedside. Patient is A&O x 4. Very appreciated of all the care he has received. Reports I feel like I an run 5 miles right now, I feel great . Patient's groin sites are soft to touch, denies tenderness. Dressings are C/D/I. Pulses are present throughout. Neurovascularly intact throughout. Discussed plan with patient to remain flat for 6 hours post procedure then proceed with getting up to chair and ambulation. Discussed with patient the outcome of the procedure.Plan for discharge tomorrow if remains stable over night. Lifevest placed on patient with RN and turned on. Called patients and updated her again with plan for d/c tomorrow if all remains stable. Will not need EP consult at this visit as the plan will remain unchanged from previous hospitalization endof February which is to recheck ECHO in 1 month (3 months from February visit) and determine if therehas been recovery from revascularization s/p PCI and TAVR. Patient and both understanding to the plan. Follow up with Dr. Biggs in clinic in 1 month with ECHO. This will be arranged by this PREVENTION COORDINATOR, Kaylee Mccain. OLIVIA Mills LOG LIBRARIAN * Kaylee Mccain APRN-CNP - 04/29/2020 1:20 PM CST Family Notification Documentation Contact made: 04/29/2020 1:22 PM Person(s) contacted: Mrs. Rios Method of communication: Phone Summary of discussion Called and updated patient's on procedure, outcome, and condition. She was very thankful for the update and all the operators expertise. will plan to call the patient later this evening. Nofurther questions at this time. OLIVIA Mills LOG LIBRARIAN * Leonor Evans RN - 04/29/2020 1:08 PM CST Patient to floor at this time with RN, RT(R), and Anesthesia x2. On transport monitor and oxygen. LOG LIBRARIAN * Leonor Evans RN - 04/29/2020 12:53 PM CST 4 ICU charge called and updated on pt condition. Will give bedside SBAR. LOG LIBRARIAN * Leonor Evans RN - 04/29/2020 12:46 PM CST ACT 141 LOG LIBRARIAN * Leonor Evans RN - 04/29/2020 12:29 PM CST ACT 324 LOG LIBRARIAN * Leonor Evans RN - 04/29/2020 12:10 PM CST ACT 343 LOG LIBRARIAN * Leonor Evans RN - 04/29/2020 11:51 AM CST ACT 306 LOG LIBRARIAN * Leonor Evans RN - 04/29/2020 11:17 AM CST MATT was done by . Pt intubated no sedation start time. MATT probe will be left in while procedure is ongoing. LOG LIBRARIAN documented in this encounter H&P Notes * Joselito Clark MD - 04/29/2020 1:12 PM CST Images from the original note were not included. CCU History and Physical Admission Date: 04/29/2020 Chief Complaint / History of Present Illness Chief Complaint: Post TAVR Padmini Rios is a 79 year old male Padmini Rios is a 79 year old male with PMH of CAD, HLD, HTN, BPH, T2DM, and psoriasis who presented for scheduled TAVR. Patient in February had NSTEMI and had PCI to OM with partial improvement in dyspnea. However he continued to have TOVAR and patient was scheduled for TAVR. Patient had TAVR, with successful placement of Medtronic Evolut R 34 Transcatheter Heart Valve on 04/29/20 without complication. Once on unit patient VSS. EKG without arrhythmia. Patientstates he is feeling well, not complaining of pain at this time. Tolerating PO intake without abdominal pain, n/v. Review of Systems Constitutional: Negative. HENT: Negative. Eyes: Negative. Respiratory: Negative. Cardiovascular: Negative. Gastrointestinal: Negative. Genitourinary: Negative. Musculoskeletal: Negative. Skin: Negative. Neurological: Negative. Endo/Heme/Allergies: Negative. Psychiatric/Behavioral: Negative. Medical and Surgical History Past Medical History: Diagnosis Date ??? CAD (coronary artery disease) ??? HFrEF (heart failure with reduced ejection fraction) ??? HLD (hyperlipidemia) ??? HTN (hypertension) ??? MO (myocardial infarction) ??? Psoriasis Past Surgical History: Procedure Laterality Date ??? Back Surgery 1998 ??? Cholecystectomy ??? HERNIA REPAIR, UMBILICAL Prior to Admission medications Medication Sig Start Date End Date Taking? Authorizing Provider aspirin (ASPIRIN) 81 MG chew tablet Take 1 tablet by mouth once daily 03/19/20 Yes Galindo Reyes MD SHAKA CONTOUR NEXT TEST test strip 04/12/20 Reyes Haney MD clopidogrel (PLAVIX) 75 MG tablet Take 1 tablet by mouth once daily 03/19/20 Yes Galindo Reyes MD furosemide (LASIX) 20 MG tablet Take 1 tablet by mouth once daily 03/19/20 Yes Galindo Reyes MD lisinopril (PRINIVIL; ZESTRIL) 2.5 MG tablet Take 1 tablet by mouth once daily 03/19/20 Yes Galindo Reyes MD metFORMIN CR 24hr modified (GLUMETZA) 1000 MG (MOD) tablet Take 1,000 mg by mouth 2 times daily Reyes Nowak MD metoprolol succinate XL 24hr (TOPROL XL) 25 MG tablet Take 12.5 mg by mouth once daily 04/14/20 Reyes Nowak MD tamsulosin (FLOMAX) 0.4 MG capsule Take 0.4 mg by mouth once daily At the same time every day aftera meal. Yes Reyes Haney MD No Known Allergies Social and Family Medical History Social History Socioeconomic History ??? Marital status: Spouse name: Not on file ??? Number of children: Not on file ??? Years of education: Not on file ??? Highest education level: Not on file Occupational History ??? Not on file Social Needs ??? Financial resource strain: Not on file ??? Food insecurity Worry: Not on file Inability: Not on file ??? Transportation needs Medical: Not on file Non-medical: Not on file Tobacco Use ??? Smoking status: Never Smoker ??? Smokeless tobacco: Never Used Substance and Sexual Activity ??? Alcohol use: Never Frequency: Never ??? Drug use: Never ??? Sexual activity: Not on file Lifestyle ??? Physical activity Days per week: Not on file Minutes per session: Not on file ??? Stress: Not on file Relationships ??? Social connections Talks on phone: Not on file Gets together: Not on file Attends sikhism service: Not on file Active member of club or organization: Not on file Attends meetings of clubs or organizations: Not on file Relationship status: Not on file ??? Intimate partner violence Fear of current or ex partner: Not on file Emotionally abused: Not on file Physically abused: Not on file Forced sexual activity: Not on file Other Topics Concern ??? Not on file Social History Narrative ??? Not on file Family History Problem Relation Name Age of Onset ??? CAD (Coronary Artery Disease) Mother at 52 ??? Diabetes - Type 2 Mother ??? CAD (Coronary Artery Disease) Father at 77; per patient he had a heart stroke ??? CAD (Coronary Artery Disease) Sister s/p bypass surgery; in 90s ??? CAD (Coronary Artery Disease) Brother at 75; per patient, brother had multiple MO ??? Heart Failure Brother s/p PPM and ICD placed ??? Renal Disease Brother ??? CAD (Coronary Artery Disease) Brother s/p bypass per patient ??? Heart Failure Brother s/p PPM and ICD placed Objective Temp: [95.2 ??F (35.1 ??C)-97.3 ??F (36.3 ??C)] 95.4 ??F (35.2 ??C) Pulse: [66-76] 68 Resp: [7-26] 10 BP: (87-115)/(55-71) 115/55 Arterial Line BP #1: (114-116)/(43-49) 116/49 Intake/Output Summary (Last 24 hours) at 04/29/2020 1638 Last data filed at 04/29/2020 1352 Gross per 24 hour Intake -- Output 400 ml Net -400 ml Gen: AO x 3. NAD, eating food HEENT: AT, NC, PERRLA, no JVD noted. Moist mucus membranes. No scleral icterus. CV: RRR. No murmurs, clicks or gallops. Resp: CTAB, no wheezes, Good air movement. Abd: Soft, NT, +BS, no organomegaly. Ext: DP +2/4 peripheral pulses bilaterally, warm extremities. No peripheral edema noted. R femoral and L femoral Access site without hematoma. TR band on R wrist. Neuro: BEE. Non-focal exam Skin: Warm and dry. No rashes or bruising noted. Laboratory Data Recent Labs Component Name 04/25/20 1132 03/19/20 0610 03/18/20 0700 WBC 8.1 7.7 7.4 HGB 11.7* 11.9* 13.3* HCT 36.4* 35.6* 40.8 MCV 90.3 87.7 89.3 Recent Labs Component Name 04/25/20 1132 03/16/20 0530 03/15/20 2356 03/15/20 1624 03/14/20 2317 03/14/20 2317 PT 13.4 - - - - 14.0 INR 1.1 - - - - 1.1 PTT - 89.0* 76.8* >200.0* - 35.3 - = values in this interval not displayed. Recent Labs Component Name 04/25/20 1132 03/19/20 0610 03/18/20 0700 NA 135* 131* 134* POTASSIUM 4.5 4.5 4.9* CL 97* 97* 98 CO2 26 27 26 BUN 19 29* 31* CREATININE 1.1 1.1 1.1 Imaging TTE 03/17/20 Summary: -Severe ICM with > 50% LV scar, low output state (cardiac output 2.8 L/min, index 1.36 L/min/M2), severe senilecalcific low stroke volume aortic stenosis, moderately severe 3+ functional and calcific MR, borderline mitral stenosis, severe atrial dilatation, high left heart filling pressure, moderate pulmonary vascular dysfunction, mild TR, elevated venous pressure, dialted hypokinetic RV, and moderate mixed pulmonary hypertension. No prior ECHO for comparison. LVEF 27 %. MATT 04/29/20: Pending [facility] 03/18/20: ANGIOGRAPHY: ?? i. ?Left main: Bifurcates into LAD and Circumflex. Mild luminal irregularities Noted. ii.?LAD: Proximal LAD has mild diffuse 10-20% stenosis. Mid LAD has diffuse Moderate 30-40% disease. Apical LAD has MANAGER BODY. iii. ?? LCx: Dominant vessel. Proximal and mid mild luminal irregularities. Distal Circumflex has afocal 80% stenotic segment. It then gives of LPDA that has severe 70% diffuse disease. Gives off OM1 and a large bifurcating OM2 branches. OM2 has proximal calcified severe 70% focal stenotic lesion.It then gives off superior and inferior branches. Superior branch has a focal 90% stenotic segment. iv. ?? RCA: Non dominant vessel. Has mild luminal irregularities throughout. DOMINANCE: Left ?? DIAGNOSTIC INTERPRETATIONS: 1. 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 ??INTERVENTIONAL CONCLUSIONS: 1. Successful implantation of 2.5 x 15 mm Xience Karla Drug Eluting Stent in the distal circumflex. 2. Successful implantation of 3.5 x 12 mm Xience Karla Drug Eluting Stent in proximal OM2 branch. 3. Successful implantation of 2.25 X 12 Xience Karla Drug Eluting stent in the superior branch of OM2. 04/29/20 EKG: Assessment and Plan Padmini Rios is a 79 year old male Padmini Rios is a 79 year old male with PMH of ICM HFrEF, HLD, HTN, BPH, T2DM, and psoriasis who presented s/p TAVR. Neurologic No active problems. Cardiovascular #Severe s/p TAVR -Patient with severe on TTE 03/18/20, MATT prior to procedure unchanged. -Valve type: Medtronic Evolut R 34 Transcatheter Heart Valve -Femoral access -Please see Procedure note by Dr. Biggs for full procedure. -Valve was delivered in cusp overlap view (technique) and in non coronary depth was 1 mm and in noncoronary cusp, the depth is 3 mm. Postimplant MATT and supravalvular aortography revealed trivial tomild paravalvular leak. Mean gradient was 8 mmHg. -Right and left femoral sites without hematoma, no retained sheaths. TR band on right wrist. -Hgb pending, BMP pending PLAN: -EKG post TAVR Reviewed, as per above -Monitor femoral access for hematoma -EKG and limited echo ordered for 04/30/20 -Continue ASA 81mg and Plavix 75mg daily, statin -Tele to monitor for arrhythmias -Cardiology follow up scheduled. #ICM HFrEF27% #HTN #HLD -Last echo 03/18/20 Reviewed as per above -Continue Metoprolol succinate 12.5 daily, Lisinopril 2.5mg daily, lasix 20mg daily Pulmonary No active problems. GI No active problems. Renal / Electrolytes / Acid-Base No active problems. -replete lytes: K>4, Mag>2, Phos>3 Endocrine #T2DM -last A1c 6.5 -on Metformin 1000mg bID and glimepiride 2 MG tabletat home -SSI and accuchecks Infectious Diseases No active problems. Hematology / Oncology #Normocytic anemia -Hgb 10.4 -May be 2/2 anemia of chronic dz vs iron deficiency. -CBC daily, transfuse Hgb <7 MSK No active problems. #BPH -Flomax and finasteride Prophylaxis VTE risk: moderate. Pharmacologic thromboprophylaxis is indicated. - Continue SCDs. - Continue enoxaparin 40 mg QDAY SubQ. Stress ulcer risk: low. Stress ulcer prophylaxis not indicated. Lines / Drains / Airways Peripheral IV (x 1) Diet DIET DIABETIC CONSIST CARB CARDIAC Activity Level: Bedrest only Weight bearing: No restrictions (WBAT) Consults None Disposition MICU Code Status Full Code Joselito Clark MD Internal Medicine, PGY-2 Pager: Signed: 04/29/2020 4:38 PM LOG LIBRARIAN Associated attestation - Feliciano Viveros MD - 04/30/2020 3:16 PM CATALOG LIBRARIAN ATTENDING PHYSICIAN NOTE Patient seen and examined with the resident. I confirm the history, exam, assessment and plan. In addition I note: Chief complaint: TAVR History: as resported by resident. Social History Socioeconomic History Marital status: Spouse name: Not on file Number of children: Not on file Years of education: Not on file Highest education level: Not on file Occupational History Not on file Tobacco Use Smoking status: Never Smoker Smokeless tobacco: Never Used Substance and Sexual Activity Alcohol use: Never Frequency: Never Drug use: Never Sexual activity: Not on file Other Topics Concerns: Not on file Social History Narrative Not on file family history includes CAD (Coronary Artery Disease) in his brother, brother, father, mother, and sister; Diabetes - Type 2 in his mother; Heart Failure in his brother and brother; Renal Disease in his brother. No Known Allergies Past Medical History: No date: CAD (coronary artery disease) No date: HFrEF (heart failure with reduced ejection fraction) No date: HLD (hyperlipidemia) No date: HTN (hypertension) No date: MO (myocardial infarction) No date: Psoriasis A full 12 point review of systems was performed and was otherwise negative besides what was mentioned in the HPI. Exam: BP 98/56 Pulse 66 Temp 99.1 ??F (37.3 ??C) Resp 15 Ht 5' 9 (1.753 m) Wt 192 lb 3.2 oz (87.2 kg) SpO2 98% BMI 28.38 kg/m2 NAD. HEENT: neck supple. Atraumatic. Cor: RRR. JVD/V wave/HJR. 3/6 CECILIA, 2/6 HSM LSB and apex, A2 loud P2 soft S3 Resp: no rales bilaterally. GI: soft. NT. Ext: no edema Medications were reviewed; please see the resident's note for complete list. Data Review: pertinent lab and cardiac data reviewed Lab Results: Recent Labs Component Name 04/30/20 03504/29/20164004/25/20 1132 WBC 7.1 7.9 8.1 HGB 9.8* 10.4* 11.7* HCT 30.2* 32.9* 36.4* PLTCOUNT 111* 122* 178 Recent Labs Component Name 04/30/20 03504/29/20 16404/25/20 1132 POTASSIUM 4.1 4.7* 4.5 CO2 26 24 26 BUN 14 17 19 CREATININE 0.8 0.7 1.1 GLUCOSE 107 145* 51* CALCIUM 7.9* 8.0* 9.1 Recent Labs Component Name 04/25/20 1132 03/16/20 0530 03/15/20 2356 03/15/20 1624 03/14/20 2317 03/14/20 2317 INR 1.1 - - - - 1.1 PT 13.4 - - - - 14.0 PTT - 89.0* 76.8* >200.0* - 35.3 - = values in this interval not displayed. Recent Labs Component Name 04/29/20 16404/25/20 1132 03/14/20 2316 ALKPHOS 59 70 69 ALT 9 12 17 AST 17 18 22 No results for input(s): TSH in the last 60761 hours. No results for input(s): CKMB, TROPONIN, MYOGLOBIN in the last 72719 hours. No results for input(s): PHART, VAN9JER, PO2ART, L4BLIGMJ, LNO7WBO, BEART, FIO2 in the last 46028 hours. Recent Labs Component Name 03/15/20 0630 CHOL 115 HDL 35* TRIG 75 LDLCALC 65 ECG reviewed: NSR, LAE, FAVB, IMI, PRP, Anterior MO. CXR reviewed: Clear with PVR and CM Severe ischemic cardiomyopathy with > 50% LV scar, low output state (cardiac output 2.8 L/min, index 1.36 L/min/M2), severe senile calcific low stroke volume aortic stenosis, moderately severe 3+ functional and calcific MR, borderline mitral stenosis, severe atrial dilatation, high left heart filling pressure, moderate pulmonary vascular dysfunction, mild TR, elevated venous pressure, dialted hypokinetic RV, and moderate mixed pulmonary hypertension. No prior ECHO for comparison. The left ventricle is severely increased in size (systolic volume index 99 ml/M2 indicative of adverse prognosis).. Left ventricular systolic function is severely decreased with an ejection fraction by Biplane Method of Discs of 27 %. The inferior wall, apical cap, basal inferoseptal, basal anterolateral wall, mid anterolateral wall, basal inferolateral wall, and mid inferolateral wall are akinetic. The anterior wall, anteroseptal wall, apical septum, apical lateral wall, and mid inferoseptal are hypokinetic. There is severe eccentric left ventricular hypertrophy. The left ventricular diastolic function parameters are abnormal suggesting moderately severely elevated LA pressure. The right ventricular cavity size is moderately enlarged. Mildly reduced right ventricular systolic function/global hypokinesis. The left atrium is severely enlarged. The right atrium is severely enlarged. Estimated right atrial pressure 13 mmHg. Severe decreased mobility of the coronary cusps. Generalized moderate to severe calcification of the coronary cusps. There is severe aortic stenosis with a peak velocity of 2.7 m/sec, mean gradient of 17 mmHg, aorticvalve area of 0.7 cm??, and an NSDI of 0.17. There is trace aortic regurgitation. Aortic valve regurgitant fraction by pulsed Doppler quantitative flow method is 2 %, Trace. Normal PVR of 6.4 Wood units. The mitral valve leaflets are calcified. Severe decreased mobility of the posterior mitral valve leaflet. There is borderline mitral stenosis. Area index 1.1 cm2/M2. Mitral valve effective orifice area by PISA is 2.87 cm2. Mitral valve area by 2D Planimetry is 2.50 cm2. Mitral valve diastolic mean gradient is 2 mmHg. There is moderate to severe calcific functional mitral regurgitation. Mitral valve effective regurgitant orifice by PISA is 0.23 cm??, moderate to severe. Mitral valve regurgitant volume by PISA is 30.53 ml, moderate to severe. Mitral valve regurgitant fraction by pulsed Doppler quantitative flow method is 41 %. There is mild tricuspid regurgitation. Moderate pulmonary hypertension, estimated pulmonary arterial systolic pressure is 56 mmHg/mean PA pressure of 40-44 mmHg. The aortic root at the sinus of valsalva is normal in size measuring 3.38 cm with an index of 1.64 cm/m2. Grade III atheromatous disease seen in the aortic root and ascending aorta. No pericardial effusion. Assessment/Plan: Severe low gradient with moderate MS and MR. Ischemic cardiomyopathy. High probability of benefit with 34 mm CoreValve EVOLUT Pro Plus TAVR. No clots in LV. Proceed with procedure. All other issues in order. MATT with TAVR. Please see the resident's note for further details. Feliciano Viveros MD, F.A.C.C. blueprint cutter 04/30/2020 3:10 PM * Oliver Biggs MD - 04/29/2020 9:49 AM CST HPI : History of progressive SOB and NSTEMI in FEB, found to have severe , low flow. He had PCI to OM and since then he had partial improvement but still have SOB REVIW OF SYSTEM: Constitutional: No lack of energy, No Weight change, No Loss of appetite, No Fever Ears, Nose, Mouth & Throat: No Bleeding gums, No Runny nose, No sore throat Cardiac: No Chest pains, No Palpitations, No Leg swelling, No Orthopnea or PND, No Syncope or dizziness Respiratory: No Cough, +Ve dyspnea, No Wheezing, No hemoptysis, No O2 at home or inhaler, No Snoring Gastrointestinal: No Nausea or vomiting, No Diarrhea, No Abdominal pain Musculoskeletal; No Joint pain, No Aching muscles, No Leg pain Skin: No Rash, No Skin lesions, ulcers, infection, Neurologic: No Double vision or visual loss, No Weakness, No Problems with walking or balance or falls Psychiatric: No Anxiety, No Depression Endocrinology: No Intolerance to heat or cold, No Menstrual irregularities Hematologic: No bleeding tendency or Easy bruising COMPLETE PAST HISTORY: Medical HX Past Medical History: No date: CAD (coronary artery disease) No date: HFrEF (heart failure with reduced ejection fraction) No date: HLD (hyperlipidemia) No date: HTN (hypertension) No date: MO (myocardial infarction) No date: Psoriasis SOCIAL HX Social History Socioeconomic History Marital status: Spouse name: Not on file Number of children: Not on file Years of education: Not on file Highest education level: Not on file Occupational History Not on file Tobacco Use Smoking status: Never Smoker Smokeless tobacco: Never Used Substance and Sexual Activity Alcohol use: Never Frequency: Never Drug use: Never Sexual activity: Not on file Other Topics Concerns: Not on file Social History Narrative Not on file FAMILY HX family history includes CAD (Coronary Artery Disease) in his brother, brother, father, mother, and sister; Diabetes - Type 2 in his mother; Heart Failure in his brother and brother; Renal Disease in his brother. ALLERGIES No Known Allergies HOME MEDICATIONS No current facility-administered medications on file prior to encounter. Current Outpatient Medications on File Prior to Encounter: ??? aspirin (ASPIRIN) 81 MG chew tablet, Take 1 tablet by mouth once daily, Disp: 30 tablet, Rfl: 11 ??? SHAKA CONTOUR NEXT TEST test strip, , Disp: , Rfl: ??? clopidogrel (PLAVIX) 75 MG tablet, Take 1 tablet by mouth once daily, Disp: 30 tablet, Rfl: 11 ??? furosemide (LASIX) 20 MG tablet, Take 1 tablet by mouth once daily, Disp: 30 tablet, Rfl: 3 ??? glimepiride (AMARYL) 2 MG tablet, Take 2 mg by mouth daily with breakfast, Disp: , Rfl: ??? lisinopril (PRINIVIL; ZESTRIL) 2.5 MG tablet, Take 1 tablet by mouth once daily, Disp: 30 tablet, Rfl: 3 ??? metFORMIN CR 24hr modified (GLUMETZA) 1000 MG (MOD) tablet, Take 1,000 mg by mouth 2 times daily, Disp: , Rfl: ??? metoprolol succinate XL 24hr (TOPROL XL) 25 MG tablet, Take 12.5 mg by mouth once daily, Disp: , Rfl: ??? tamsulosin (FLOMAX) 0.4 MG capsule, Take 0.4 mg by mouth once daily At the same time every day after a meal., Disp: , Rfl: CURRENT HOSPITAL MEDICATIONS Current Facility-Administered Medications: ??? 0.9% NaCl infusion rate and volume, 250 mL, Intravenous, Once PRN, Kaylee Mccain, LOANS CONSULTANT-CASH ROOM CLERK ??? 0.9% NaCl injection 3 mL, 3 mL, Intracatheter, q8h, Kaylee Mccain LOANS CONSULTANT- CASH ROOM CLERK, 3 mL at And ??? 0.9% NaCl injection 1-10 mL, 1-10 mL, Intracatheter, PRN, Kaylee Mccain, LOANS CONSULTANT-CASH ROOM CLERK ??? dextrose IV 12.5-25 g, 25-50 mL, Intravenous, PRN, Kaylee Mccain, LOANS CONSULTANT-CASH ROOM CLERK ??? glucagon (GLUCAGEN) injection 1 mg, 1 mg, Intramuscular, PRN, Kaylee Mccain, LOANS CONSULTANT-CASH ROOM CLERK ??? insulin aspart (NovoLOG) pen 0-6 Units, 0-6 Units, Subcutaneous, q4h, Kaylee Mccain, LOANS CONSULTANT-CASH ROOM CLERK, 1 Units at 04/29/20 0946 ??? perflutren Lipid Microsphere (DEFINITY) injection SUSP 0.5 mL, 0.5 mL, Intravenous, intra-Procedure multiple, Mar, Jay Berry MD, 0.5 mL at 04/29/20 0850 COMPREHENSIVE PHYSICAL EXAMINATION: Vitals: BP 96/71 Pulse 75 Temp 97.3 ??F (36.3 ??C) (Oral) Resp 22 Ht 5' 9 Wt 192 lb 3.2 oz SpO2 99% BMI 28.38 kg/m2 General appearance: no distress, able to lie flat Eyes: anicteric sclera, moist conjunctivae; PERRLA HENT: Atraumatic; oropharynx clear with moist mucous membranes and no mucosal ulcerations Neck: supple, no thyromegaly or lymphadenopathy, no JVD, no carotid bruit Lungs: CTA, with normal respiratory effort and no intercostal retractions CV: RRR, apical impulse is barely palpable or normal, no thrill, ESM Abdomen: Soft, non-tender; no masses or HSM Extremities: No peripheral edema, intact pulses, no cyanosis or clubbing Skin: Normal temperature, turgor and texture; no rash, or ulcers or nodules Psych: Appropriate affect, alert and oriented to person, place and time Neuro: no focal weakness Musculoskeletal: no clubbing, cyanosis, patachaie: DATA REVIWED EKG: sinus and QRS 116 msec ECHO Feb 2020: There is severe aortic stenosis with a peak velocity of 2.7 m/sec, mean gradient of 17 mmHg, aorticvalve area of 0.7 cm??, and an NSDI of 0.17. Repeat TTE today unchanged, reviewed with dr Gifford and Dr Viveros CT Angio The right common iliac artery measures 8.0 mm. The right external iliac artery measures 10.0 mm. The right femoral artery measures 7.8 mm at the level of the femoral head. The left common iliac artery measures 11.3 mm The left external iliac artery measures 9.3 mm. The left femoral artery measures 10.3 mm at the level of the femoral head. ?? ASSESSMENT/PLAN: Sever low flow , Moderate MR, severely reduced EF, CAD, Hx of PCI to OM, plan TAVR, Sintenil device, temporary pacer, Rt groin access for large vascular sheath> patient understands and agree with procedure LOG LIBRARIAN documented in this encounter Procedure Notes * Oliver Biggs MD - 04/29/2020 2:12 PM CST IMPLANTATION OF CATHETER DERIVED PROSTHETIC AORTIC HEART VALVE; TRANSFEMORAL APPROACH Patient Name: Padmini Rios :1940 Date of Procedure: 04/29/2020 Indication: Symptomatic severe aortic valve stenosis History: Padmini Rios is a 79 year old male with symptomatic severe aortic valve stenosis and multiple comorbidities. Patient was recommended TAVR based on the decision of the heart team including independent [id number] evaluation of the patient by cardiothoracic surgeon and senior managing director. Procedure: 1. Rt common femoral artery retrograde access using micropuncture needle under US guidance 2. Lt common femoral venous access using micropuncture needle under US guidance 3. Lt common femoral retrograde access by percutaneous FA approach using micropuncture needle underUS and angiogram guidance 4 Temporary RV transvenous pacemaker placement 6. Aortic root and arch angiography 7. Pre balloon aortic valvuloplasty 8. Transcatheter aortic valve implantation with a Medtronic Evolut R 34 Transcatheter Heart Valve 10. [place] cerebral protection device deployment Operators: 1. Primary Surgeon - Girish Byrd MD 2. Primary pot firer - Oliver Biggs MD, Hari Irwin Description of the Procedure: The patient was brought to the hybrid cardiac catheterization suite in a fasting state. Informed consent was obtained after the discussion of risk, benefits and alternatives. After an initial time out process, general anaesthesia was administered by anesthesia service. Pre-Op antibiotic IV ancef 2gm was given. The patient was prepped and draped in the usual sterile fashion. The L femoral venous access obtained using a micropuncture access needle under US guidance, and a 7fr sheath was placed. A 5 fr balloon tipped temporary right ventricular transvenous pacemaker was positioned at RV apex under fluoroscopic guidance. Adequate pacing thresholds and stable capture was confirmed. The L common femoral artery was punctured with a micropuncture needle/sheath system under US guidance. This was exchanged to a 6 fr sheath. A 6 fr. pigtail catheter was advanced over a J-wire into the aortic bifurcation area and non- selective R iliac angiogram obtained. Under fluoro and US guidanceR comon femoral artery was punctured using a micropuncture needle/sheath system. This was exchangedto a 6 fr sheath. 2 perclose sutures were deployed at the R common femoral arteriotomy site for closure, using a preclosure technique. An 8 fr sheath was placed after the perclose suture wire placement. R radial artery access obtained using a 6 fr Slender sheath. An Amplatz extra stiff wire was placed in the abdominal aorta and the R femoral arteriotomy was dilated using 12 fr dilator. A 18 fr 30 cm long hemostatic vessel introducer sheath (dry seal sheath) was introduced into the abdominal aorta without difficulty. IV heparin was given and ACT was above 250 sec. [place] device was deployed in R brachioceohalic and L common carotid arteries without much trouble. Following this the loop of the pigtail catheter was positioned in the non coronary sinus of valsalva. Aortic root aortography obtained to confirm the implant view. An JR4 catheter was advanced into the aortic root over a regular j wire through dry seal seath. Thevalve was crossed using a 0.035 straight wire and JR4 was advanced into the left ventricular chamber. An exchange length J-wire was placed through the JR4 catheter at the left ventricular apex, and the JR4 diagnostic catheter was exchanged for a 6 Fr. angeled pigtail catheter. Simultaneous LV and aortic pressures were measured with peak to peak gradient 30 mmHg. This was followed by the placementof a 260 cm long preshaped Confida Brecker wire/ Lunderquest/ Amplatx extra stiff wire through the pigtail catheter at the LV apex. Prior to inserting the device, a fluoro and cine load inspection was performed to confirm the valve is properly loaded. A True balloon 22 x 45 mm was placed across the aortic valve and dilated, while pacing the RV at 180 BPM. The balloon was removed over the Lunderquest wire. Dry seal was removed. Over the Lunderquest wire, the proprietary Medtronic Evolut PRO plus 34 mm valve delivery system with inline sheath was advanced to descending thoracic aorta. The delivery system was advanced across the aortic arch under fluoroscopic guidance and positioned across the aortic annulus. The valve was deployed slowly and the position adjusted as needed under fluoroscopic and angiographic guidance. Valve was delivered in cusp overlap view (technique) and in non coronary depth was 1 mm and in non coronary cusp, the depth is 3 mm. We were satisfied with the position of the final deployed valve. The delivery system was then walked back into the descending thoracic aorta. Postimplant MATT and supravalvular aortography revealed trivial to mild paravalvular leak. Mean gradient was 8 mmHg. Pigtail crossed to LV and there was no gradient across AV. [place] device was captured and removed from radial access that was later closed with TR band. Thevalve delivery system was removed over the J wire wire. The pigtail catheter was repositioned from descending aorta iliac and femoral angiogram. EVOLUTE PRO 34 deliver sheath was removed of over J wire and 2 perclose devices deployed and no hematoma or bleed and intact distal pulses. Angiogram through pigtail confirmed adequate hemostasis. Protoamine was administered to reverse heparin effect. Femoral venous pacer wire was removed. L femoral venous and artrial sheaths removed and hemostasis obtained by manual compression for venous accessand angioseal for arterial access. R radial sheath was removed and hemostasis obtained by TR band. Patient was transferred to recovery room. Specimen Removed: none Complication: None Estimated blood loss: 50 cc Oliver Biggs MD, [facility] [employer] Wms Consultant [facility] LOG LIBRARIAN documented in this encounter OR Notes * Operative - Jakc Cleveland MD - 04/30/2020 3:11 PM CST NAME: PADMINI RIOS : 1940 AGE: 79 PROC DATE: 04/29/2020 SEX: M SURGEON: Jack lCeveland MD PREOPERATIVE DIAGNOSIS: Severe calcific aortic stenosis, severe biventricular congestive heart failure. POSTOPERATIVE DIAGNOSIS: Severe calcific aortic stenosis, severe biventricular congestive heart failure. PROCEDURE: Transcatheter aortic valve replacement with 34 mm Medtronic Evolut PRO bioprosthesis. SURGEON: Jack Cleveland M.D. HEALTH INSURANCE ADJUSTER OF RECORD: Oliver Biggs M.D. and Hari Carlin M.D. DESCRIPTION OF PROCEDURE: The patient was taken to the hybrid room in the slab polisher, identified, placed supine on the operating table. Anesthesia was induced, endotracheal intubation was performed. The patient was prepped and draped in the usual fashion and vascular access was obtained sequentially in the right radial artery, in the right femoral artery, in the left femoral artery and left femoral vein. After systemic heparinization, a sentinel device was placed in the innominate artery and in the left subclavian artery through the right radial arterial access site. A pigtail catheter was placed in the aortic root through the left femoral arterial access site. Temporary pacing wire was placed in the right ventricle through the left femoral venous access site, and over a progressive series of dilators, an 18-Georgian introducer was placed in the right femoral artery. At this time, under fluoroscopic and echocardiographic guidance, a 22 mm noncompliant balloon was advanced across the aortic valve, and after rapid pacing at 180 beats per minute was initiated, a predilatation was performedwithout any adverse events. Following the predilatation of the aortic valve, the delivery system for a Medtronic 34 mm Evolut PRO transcatheter prosthesis was advanced again under fluoroscopic guidance and placed across the aortic valve. The prosthesis was then deployed using the overlap radiographic technique for alignment of the noncoronary and coronary cusps, and when satisfactory position of the valve was achieved, the valve itself was fully released from the delivery system. After retrieving the delivery system into the descending aorta, transesophageal echocardiography was performed which demonstrated good position and function of the valve with no detectable perivalvular leaks. The deployment was made under rapid pacing at 100 beats per minute again, and after completion of the deployment, the patient resumed spontaneous and normal sinus rhythm. All the delivery system was then withdrawn, all the arterial access introducers were withdrawn and the 18-Georgian introducer for the femoral artery was also discontinued and the entry site in the femoral artery was controlled with the use of 2 Perclose devices. Protamine was then given and hemostasis was obtained in all the sites by manual compression. The patient remained stable throughout the procedure and was transferred to the r ecovery unit for continuation of care. [id number] Doc ID: [id number] Job ID: [id number] LOG LIBRARIAN * Brief Op Note - Kaylee Mccain APRN-CNP - 04/29/2020 1:10 PM CST Brief Op Note Procedure: transcatheter aortic valve replacement 34 mm Medtronic via right femoral approach Patient Name: Padmini Riso Date of Service: 04/29/2020 Pre-Op Diagnosis: severe aortic valve stenosis Post-Op Diagnosis: s/p TAVR Anesthesia Type: general ETT Complications: none EBL: minimal blood loss Continue plavix and asa tomorrow morning (had AM dose) Restart metoprolol today Hold metformin IP consult to EP-lifevest to remain in place Vas band to right radial 17 cc to be removed by nursing staff angioseal to left arterial femoral Manual pressure to left venous femoral 2 x perc close to right arterial femoral Report given to Dr. Dang. 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, without long-term current use of insulin ([facility]) Moderate mitral insufficiency Essential hypertension ECHO COMPLETE PENDING DISCHARGE 04/30/2020 9:07 AM CATALOG LIBRARIAN 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, without long-term current use of insulin ([facility]) Moderate mitral insufficiency Essential hypertension GLUCOSE - POINT OF CARE Routine 04/30/2020 7:29 AM CATALOG LIBRARIAN CBC W AUTO DIFFERENTIAL AM Draw 04/30/2020 3:50 AM CATALOG LIBRARIAN 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, without long-term current use of insulin ([facility]) BASIC METABOLIC PANEL (CALCIUM TOTAL) AM Draw 04/30/2020 3:50 AM CATALOG LIBRARIAN 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, without long-term current use of insulin ([facility]) MAGNESIUM BLOOD AM Draw 04/30/2020 3:50 AM CATALOG LIBRARIAN S/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, without long-term current use of insulin (HCC) 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) GLUCOSE - POINT OF CARE Routine 04/29/2020 5:02 PM CATALOG LIBRARIAN CBC W/O DIFFERENTIAL STAT 04/29/2020 4:41 PM CATALOG LIBRARIAN COMPREHENSIVE METABOLIC PANEL STAT 04/29/2020 4:41 PM CATALOG LIBRARIAN GLUCOSE - POINT OF CARE Routine 04/29/2020 3:19 PM CATALOG LIBRARIAN EKG 12-LEAD Routine 04/29/2020 2:47 PM CATALOG LIBRARIAN 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, without long-term current use of insulin ([facility]) Moderate mitral insufficiency Essential hypertension ECHO MATT TRANSESOPHAGEAL Routine 04/29/2020 1:41 PM CATALOG LIBRARIAN Severe aortic stenosis S/P TAVR (transcatheter aortic valve replacement) EKG 12-LEAD STAT 04/29/2020 9:25 AM CATALOG LIBRARIAN Severe aortic stenosis ECHO LIMITED OR FOLLOWUP Pre-Op 04/29/2020 8:58 AM CATALOG LIBRARIAN Severe aortic stenosis 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 Scanned Document CARDIAC SERVICES ORD ERABLES * CARDIAC EKG ORDER (05/02/2020 2:46 PM CATALOG LIBRARIAN) Narrative 05/02/2020 2:46 PM CATALOG LIBRARIAN Ordered by an unspecified provider. Scanned Document CARDIAC SERVICES ORD ERABLES * PREPARE (CROSSMATCH) RBC UNIT(S), 4 Units (05/01/2020 2:17 AM CATALOG LIBRARIAN) Unit Description AS1 LR PRBC [facility] Unit ABO A [facility] Unit Rh POS [facility] Product [facility] R02 [facility] Unit Donor # [id number] [facility] Unit Status released [facility] D [facility] Product [facility] [id number] [facility] Blood Type Barcode 6200 [facility] Expiration Date [facility] Unit Description AS5 LR PRBC [facility] Unit ABO A [facility] Unit Rh POS [facility] Product Number R22 [facility] Unit Donor [facility] [id number] [facility] Unit Status released [facility] Product [facility] [id number] [facility] Blood Type Barcode 6200 [facility] Expiration Date [facility] Unit Description AS1 LR PRBC [facility] Unit ABO A [facility] Unit POS [facility] Product [facility] R02 [facility] Unit Donor # [id number] [facility] Unit Status released [facility] Product [facility] [id number] [facility] OD [facility] Blood Type Barcode 6200 [facility] Expiration Date [facility] Unit Description AS1 LR PRBC [facility] Unit ABO A [facility] Unit POS [facility] Product Number R02 [facility] Unit Donor # [id number] [facility] Unit Status released [facility] D [facility] Product [facility] [id number] [facility] OD [facility] Blood Type Barcode 6200 [facility] LAB Expiration Date [facility]OD [facility] Blood Bank BLOOD SPECIMEN / Unknown 04/29/2020 8:35 AM CATALOG LIBRARIAN Kaylee Mccain LOANS CONSULTANT-CASH ROOM CLERK LAB - BLOOD BANK ORDERABLES [facility] LAB [address] [place] [address], [facility] [phone] * (ABNORMAL) GLUCOSE - POINT OF CARE (04/30/2020 11:07 AM CATALOG LIBRARIAN) [facility] Glucose WB/POC 195(H) 70 - 115 mg/dL 04/30/2020 11:12 AM CATALOG LIBRARIAN [facility] Specimen Type Arterial/C apillary 04/30/2020 11:12 AM CATALOG LIBRARIAN [facility] Blood BLOOD SPECIMEN / Unknown 04/30/2020 11:07 AM CATALOG LIBRARIAN 04/30/2020 11:12 AM CATALOG LIBRARIAN Jay Stewart MD LAB - POINT OF CARE ORDERABLES Performing Organization Address City/[facility]/ZIP Co de Phone Number [facility] [address] [place] [address], [facility] [phone] * EKG 12-LEAD (04/30/2020 9:25 AM CATALOG LIBRARIAN) [facility] Ventricular Rate 81 BPM [facility] MUSE Atrial Rate 81 BPM [facility] MUSE P-R Interval 216 ms [facility] MUSE QRS Duration ms 106 ms [facility] MUSE Q-T Interval ms 404 ms [facility] MUSE QTC Calculation (Bezet) 469 ms [facility] MUSE Calculated P [place]erain 53 degrees SL MUSE Calculated R [place] -24 degrees SL MUSE Calculated T [place] 150 degrees SL MUSE Interpretation EKG SINUS RHYTHM WITH 1ST DEGREE A-V BLOCK WITH OCCASIONAL PREMATURE VENTRICULAR COMPLEXES MINIMAL VOLTAGE CRITERIA FOR LVH, MAY BE NORMAL VARIANT T WAVE ABNORMALITY, CONSIDER LATERAL ISCHEMIA PROLONGED QT ABNORMAL ECG WHEN COMPARED WITH ECG OF 29-APR-2020 14:47, PREMATURE VENTRICULAR COMPLEXES IS NOW PRESENT Confirmed by fellow Elif Pires ([id number]) on 05/03/2020 4:26:44 PM Confirmed by Jay Stewart ([id number]) on 05/21/2020 7:59:39 AM [facility] MUSE 04/30/2020 9:25 AM CATALOG LIBRARIAN 05/21/2020 7:59 AM CATALOG LIBRARIAN Kaylee Mccain LOANS CONSULTANT-CASH ROOM CLERK ECG ORDERABLES Performing Organization Address City/[facility]/ZIP Co de Phone Number [facility] MUSE * ECHO COMPLETE (04/30/2020 9:07 AM CATALOG LIBRARIAN) Anatomical Region Laterality Modality Chest Echo 04/30/2020 8:29 AM CATALOG LIBRARIAN Narrative Procedure Note Ruth Choudhary MD - 04/30/2020 Kaylee BAKER ECHOCARDIOGRAPHY RADIANT * (ABNORMAL) GLUCOSE - POINT OF CARE (04/30/2020 7:29 AM CATALOG LIBRARIAN) Glucose WB/POC 126(H) 70 - 115 mg/dL 04/30/2020 7:34 AM [facility]3] LABORATORY [facility] Specimen Type Arterial/C apillary 04/30/2020 7:34 AM [facility] Blood BLOOD SPECIMEN / Unknown 04/30/2020 7:29 AM CATALOG LIBRARIAN 04/30/2020 7:34 AM CATALOG LIBRARIAN Jay Stewart MD LAB - POINT OF CARE ORDERABLES Performing Organization Address City/[facility]/ZIP Co de Phone Number [address] [address], [facility] [phone] * MAGNESIUM BLOOD (04/30/2020 3:50 AM CATALOG LIBRARIAN) Pathologist [facility] Magnesium 1.6 1.6 - 2.6 mg/dL 04/30/2020 4:36 AM [facility] Blood BLOOD SPECIMEN / Unknown Venipuncture / Unknown 04/30/2020 3:50 AM CATALOG LIBRARIAN 04/30/2020 4:07 AM CATALOG LIBRARIAN Kaylee BAKER LAB - CHEMISTRY ORDERABLES [address] [address], [place] [phone] * (ABNORMAL) CBC W AUTO DIFFERENTIAL (04/30/2020 3:50 AM CATALOG LIBRARIAN) WBC 7.1 3.5 - 10.5 10? 3 /uL 04/30/2020 4:21 AM [facility] RBC 3.38(L) 4.30 - 5.70 10? 6 /uL 04/30/2020 4:21 AM [facility] Hemoglobin 9.8(L) 13.5 - 17.5 g/dL 04/30/2020 4:21 AM [facility] Hematocrit 30.2(L) 39.0 - 50.0 % 04/30/2020 4:21 AM [facility] MCV 89.3 81.0 - 97.0 fL 04/30/2020 4:21 AM [facility] MCH 29.0 28.0 - 34.0 pg 04/30/2020 4:21 AM [facility] MCHC 32.5 32.0 - 36.0 g/dL 04/30/2020 4:21 AM [facility] Platelet Count 111(L) 150 - 400 10? 3 /uL 04/30/2020 4:21 AM [facility] RDW-SD 52.8(H) 36.0 - 50.0 fL 04/30/2020 4:21 AM [facility] RDW-CV 16.1(H) 11.2 - 14.8 % 04/30/2020 4:21 AM [facility] MPV 11.1 9.3 - 12.8 fL 04/30/2020 4:21 AM [facility] nRBC Absolute 0.00 0 10? 3 /uL 04/30/2020 4:21 AM [facility] nRBC Auto 0.0 0 /100 WBC 04/30/2020 4:21 AM [facility] Neutrophils % 73.9(H) 35.0 - 70.0 % 04/30/2020 4:21 AM [facility] Lymphocytes % 11.1(L) 19.7 - 55.1 % 04/30/2020 4:21 AM [facility] Monocytes % 12.5 3.0 - 15.0 % 04/30/2020 4:21 AM [facility] Eosinophils % 1.5 0.0 - 6.0 % 04/30/2020 4:21 AM [facility] Basophil % 0.4 0.0 - 1.5 % 04/30/2020 4:21 AM [facility] Neutrophils Absolute 5.3 1.6 - 7.0 10? 3 /uL 04/30/2020 4:21 AM [facility] Lymphocyte Absolute 0.8 0.8 - 2.9 10? 3 /uL 04/30/2020 4:21 AM [facility] Monocytes Absolute 0.89(H) 0.14 - 0.66 10? 3 /uL 04/30/2020 4:21 AM [facility] Eosinophils Absolute 0.11 0.00 - 0.45 10? 3 /uL 04/30/2020 4:21 AM [facility] Basophils Absolute 0.03 0.00 - 0.06 10? 3 /uL 04/30/2020 4:21 AM [facility] Immature Granulocytes % 0.6 0.0 - 1.0 % 04/30/2020 4:21 AM [facility] Blood BLOOD SPECIMEN / Unknown Venipuncture / Unknown 04/30/2020 3:50 AM CATALOG LIBRARIAN 04/30/2020 4:07 AM [facility] Kaylee Mccain LOANS CONSULTANT-CASH ROOM CLERK LAB - HEMATOLOGY ORDERABLES [facility] [address] [place] [address], [facility] [phone] * (ABNORMAL) BASIC METABOLIC PANEL (CALCIUM TOTAL) (04/30/2020 3:50 AM [facility]) BUN 14 7 - 26 mg/dL 04/30/2020 4:36 AM [facility] Creatinine 0.8 0.6 - 1.2 mg/dL 04/30/2020 4:36 AM [facility] Sodium 135(L) 136 - 145 mmol/L 04/30/2020 4:36 AM [facility] Potassium 4.1 3.5 - 4.5 mmol/L 04/30/2020 4:36 AM [facility] Chloride 102 98 - 107 mmol/L 04/30/2020 4:36 AM [facility] CO2 26 22 - 29 mmol/L 04/30/2020 4:36 AM [facility] Glucose 107 70 - 115 mg/dL 04/30/2020 4:36 AM [facility] Calcium 7.9(L) 8.4 - 10.2 mg/dL 04/30/2020 4:36 AM [facility] Anion Gap 11 8 - 18 04/30/2020 4:36 AM [facility] BUN/Creatinine Ratio 18 7 - 23 04/30/2020 4:36 AM [facility] Osmolality Calculated 281 270 - 300 mOsm/kg 04/30/2020 4:36 AM [facility] eGFR >60 >60 mL/min/1.7 3 m2 04/30/2020 4:36 AM [facility] Blood BLOOD SPECIMEN / Unknown Venipuncture / Unknown 04/30/2020 3:50 AM CATALOG LIBRARIAN 04/30/2020 4:07 AM CATALOG LIBRARIAN Kaylee Mccain LOANS CONSULTANT-CASH ROOM CLERK LAB - CHEMISTRY ORDERABLES [address] [address], [place] [phone] * (ABNORMAL) GLUCOSE - POINT OF CARE (04/29/2020 5:02 PM CATALOG LIBRARIAN) Glucose WB/POC 157(H) 70 - 115 mg/dL 04/29/2020 5:07 PM [facility] Specimen Type Arterial/C apillary 04/29/2020 5:07 PM [facility] Blood BLOOD SPECIMEN / Unknown 04/29/2020 5:02 PM CATALOG LIBRARIAN 04/29/2020 5:07 PM CATALOG LIBRARIAN Jay Stewart MD LAB - POINT OF CARE ORDERABLES [address] [address], [place] [phone] * (ABNORMAL) COMPREHENSIVE METABOLIC PANEL (04/29/2020 4:41 PM CATALOG LIBRARIAN) BUN 17 7 - 26 mg/dL 04/29/2020 5:20 PM [facility] Creatinine 0.7 0.6 - 1.2 mg/dL 04/29/2020 5:20 PM [facility] Sodium 135(L) 136 - 145 mmol/L 04/29/2020 5:20 PM [facility] Potassium 4.7(H) 3.5 - 4.5 mmol/L 04/29/2020 5:20 PM [facility] Chloride 102 98 - 107 mmol/L 04/29/2020 5:20 PM [facility] CO2 24 22 - 29 mmol/L 04/29/2020 5:20 PM [facility] Glucose 145(H) 70 - 115 mg/dL 04/29/2020 5:20 PM [facility] Calcium 8.0(L) 8.4 - 10.2 mg/dL 04/29/2020 5:20 PM [facility] Protein Total 6.0 6.0 - 8.3 g/dL 04/29/2020 5:20 PM [facility] Albumin 3.2(L) 3.4 - 5.0 g/dL 04/29/2020 5:20 PM [facility] Bilirubin Total 1.4(H) 0.2 - 1.2 mg/dL 04/29/2020 5:20 PM [facility] Alkaline Phosphatase 59 40 - 150 Units/L 04/29/2020 5:20 PM [facility] ALT 9 0 - 55 Units/L 04/29/2020 5:20 PM [facility] AST 17 5 - 34 Units/L 04/29/2020 5:20 PM [facility] Anion Gap 14 8 - 18 04/29/2020 5:20 PM [facility] BUN/Creatinine Ratio 24(H) 7 - 23 04/29/2020 5:20 PM [facility] Osmolality Calculated 284 270 - 300 mOsm/kg 04/29/2020 5:20 PM [facility] Albumin/Globulin Ratio 1.1 1.1 - 2.3 04/29/2020 5:20 PM [facility] eGFR >60 >60 mL/min/1.7 3 m2 04/29/2020 5:20 PM [facility] Blood BLOOD SPECIMEN / Unknown Venipuncture / Unknown 04/29/2020 4:41 PM CATALOG LIBRARIAN 04/29/2020 4:50 PM CATALOG LIBRARIAN Joselito Clark MD LAB - CHEMISTRY ARMAND MORA [facility] [address] [place] [address], [facility] [phone] * (ABNORMAL) CBC W/O DIFFERENTIAL (04/29/2020 4:41 PM CATALOG LIBRARIAN) WBC 7.9 3.5 - 10.5 10? 3 /uL 04/29/2020 4:56 PM [facility] RBC 3.67(L) 4.30 - 5.70 10? 6 /uL 04/29/2020 4:56 PM [facility] Hemoglobin 10.4(L) 13.5 - 17.5 g/dL 04/29/2020 4:56 PM [facility] Hematocrit 32.9(L) 39.0 - 50.0 % 04/29/2020 4:56 PM [facility] MCV 89.6 81.0 - 97.0 fL 04/29/2020 4:56 PM [facility] MCH 28.3 28.0 - 34.0 pg 04/29/2020 4:56 PM [facility] MCHC 31.6(L) 32.0 - 36.0 g/dL 04/29/2020 4:56 PM [facility] Platelet Count 122(L) 150 - 400 10? 3 /uL 04/29/2020 4:56 PM [facility] RDW-SD 52.7(H) 36.0 - 50.0 fL 04/29/2020 4:56 PM [facility] RDW-CV 16.0(H) 11.2 - 14.8 % 04/29/2020 4:56 PM [facility] MPV 10.9 9.3 - 12.8 fL 04/29/2020 4:56 PM [facility] nRBC Absolute 0.00 0 10? 3 /uL 04/29/2020 4:56 PM [facility] nRBC Auto 0.0 0 /100 WBC 04/29/2020 4:56 PM [facility] Blood BLOOD SPECIMEN / Unknown Venipuncture / Unknown 04/29/2020 4:41 PM CATALOG LIBRARIAN 04/29/2020 4:50 PM CATALOG LIBRARIAN Joselito Clark MD LAB - HEMATOLOGY ORD ERABLES [facility] [address] [place] [address], [facility] [phone] * (ABNORMAL) GLUCOSE - POINT OF CARE (04/29/2020 3:19 PM CATALOG LIBRARIAN) [facility] Glucose WB/POC 174(H) 70 - 115 mg/dL 04/29/2020 3:24 PM CATALOG LIBRARIAN [facility] Specimen Type Arterial/C apillary 04/29/2020 3:24 PM CATALOG LIBRARIAN [facility] Blood BLOOD SPECIMEN / Unknown 04/29/2020 3:19 PM CATALOG LIBRARIAN 04/29/2020 3:24 PM CATALOG LIBRARIAN Jay Stewart MD LAB - POINT OF CARE ORDERABLES [facility] [address] [place] [address], [facility] [phone] * EKG 12-LEAD (04/29/2020 2:47 PM CATALOG LIBRARIAN) [facility] Ventricular Rate 73 BPM [facility] MUSE Atrial Rate 73 BPM [facility] MUSE P-R Interval 240 ms [facility] MUSE QRS Duration ms 108 ms [facility] MUSE Q-T Interval ms 436 ms [facility] MUSE QTC Calculation (Bezet) 480 ms [facility] MUSE Calculated P [place]erain 45 degrees [facility] MUSE Calculated R [place] -22 degrees SL MUSE Calculated T [place] 156 degrees SL MUSE Interpretation EKG SINUS RHYTHM WITH 1ST DEGREE A-V BLOCK ST & T WAVE ABNORMALITY, CONSIDER LATERAL ISCHEMIA NONSPECIFIC T WAVE ABNORMALITY PROLONGED QT ABNORMAL ECG WHEN COMPARED WITH ECG OF 29-APR-2020 09:25, PREMATURE VENTRICULAR COMPLEXES ARE NO LONGER PRESENT QT HAS LENGTHENED Confirmed by fellow Elif Pires ([id number]) on 04/30/2020 11:21:13 AM Confirmed by Jay Stewart ([id number]) on 06/12/2020 8:03:09 PM [facility] MUSE 04/29/2020 2:47 PM CATALOG LIBRARIAN 06/12/2020 8:03 PM CATALOG LIBRARIAN Kaylee Mccain LOANS CONSULTANT-CASH ROOM CLERK ECG ORDERABLES [facility] MUSE * ECHO MATT TRANSESOPHAGEAL (04/29/2020 1:41 PM CATALOG LIBRARIAN) Anatomical Region Laterality Modality Chest X-Ray Angiograph y 04/29/2020 10:3 5 AM CATALOG LIBRARIAN Narrative Procedure Note Marisol Mcconnell MD - 04/30/2020 Kaylee Mccain LOANS CONSULTANT[facility] ECHOCARDIOGRAPHY RADIANT * EKG 12-LEAD (04/29/2020 9:25 AM CATALOG LIBRARIAN) Ventricular Rate 77 BPM [facility] MUSE Atrial Rate 77 BPM [facility] MUSE P-R Interval 218 ms [facility] MUSE QRS Duration ms 114 ms [facility] MUSE Q-T Interval ms 410 ms [facility] MUSE QTC Calculation (Bezet) 463 ms [facility] MUSE Calculated P [place] 72 degrees [facility] MUSE Calculated R [place] -26 degrees [facility] MUSE Calculated T [place] 132 degrees [facility] MUSE Interpretation EKG SINUS RHYTHM WITH SINUS ARRHYTHMIA with PREMATURE ATRIAL COMPLEXES AND PREMATURE VENTRICULAR COMPLEXES ST & T WAVE ABNORMALITY, CONSIDER LATERAL ISCHEMIA PROLONGED QT ABNORMAL ECG WHEN COMPARED WITH ECG OF 15-MAR-2020 08:06, [place] INTERVAL HAS INCREASED QT HAS SHORTENED PREMATURE ATRIAL COMPLEXES ARE NOW PRESENT Confirmed by fellow Elif Pires ([id number]) on 04/29/2020 1:40:04 PM Confirmed by Jay Stewart ([id number]) on 06/13/2020 7:58:10 AM [facility] MUSE 04/29/2020 9:25 AM CATALOG LIBRARIAN 06/13/2020 7:58 AM CATALOG LIBRARIAN Garcia De Paz MD ECG ORDERABLES [facility] MUSE * ECHO LIMITED OR FOLLOWUP (04/29/2020 8:58 AM CATALOG LIBRARIAN) Anatomical Region Laterality Modality Chest Echo 04/29/2020 8:27 AM CATALOG LIBRARIAN Narrative Procedure Note Andrea Gifford MD - 04/29/2020 Kaylee Mccain LOANS CONSULTANT[facility] ECHOCARDIOGRAPHY RADIANT * (ABNORMAL) GLUCOSE - POINT OF CARE (04/29/2020 8:23 AM CATALOG LIBRARIAN) Pathologist [facility] Glucose WB/POC 157(H) 70 - 115 mg/dL 04/29/2020 8:33 AM CATALOG LIBRARIAN [facility] Specimen Type Venous 04/29/2020 8:33 AM [facility]PITAL Blood BLOOD SPECIMEN / Unknown 04/29/2020 8:23 AM CATALOG LIBRARIAN 04/29/2020 8:33 AM CATALOG LIBRARIAN Jay Stewart MD LAB - POINT OF CARE ORDERABLES Performing Organization Address City/[facility]/ZIP Co de Phone Number [facility] LABORATORY [facility] [address] [place] [address], [facility] [phone] * TYPE + SCREEN PANEL (04/29/2020 8:18 AM CATALOG LIBRARIAN) Antibody Screen NEG 0 9:12 AM [facility]3] BLOOD BANK LAB ABO Rh A POS 04/29/2020 9:12 AM [facility]3] BLOOD BANK LAB Blood Bank BLOOD SPECIMEN / Unknown Venipuncture / Unknown 04/29/2020 8:18 AM CATALOG LIBRARIAN 04/29/2020 8:35 AM CATALOG LIBRARIAN Kaylee Mccain LOANS CONSULTANT-CASH ROOM CLERK LAB - BLOOD BANK ORDERABLES Performing Organization Address [facility]/ZIP Co de Phone Number [facility] BLOOD BANK LAB [address] [place] [address], [facility] [phone] documented in this encounter Visit Diagnoses Diagnosis Severe aortic stenosis- Primary Aortic valve disorders 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) Acute on chronic combined systolic and diastolic heart failure S/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, without long-term current use of insulin (HCC) Moderate mitral insufficiency Mitral valve disorders Essential hypertension Moderate mitral insufficiency Mitral valve disorders Essential hypertension Type 2 diabetes mellitus with diabetic nephropathy, 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 S/P TAVR (transcatheter aortic valve replacement) documented in this encounter Administered Medications Inactive Administered Medications - up to 3 most recent administrations Medication Order MAR Action Action Date Dose Rate Site 0.9% NaCl infusion Intravenous, CONTINUOUS PRN, Starting on Tue04/29/20 at 1020, Until Tue04/29/20 at 1020 $ New Bag/Syringe 04/29/2020 10:20 AM CATALOG LIBRARIAN 10 mL/hr 10 mL/hr 0.9% NaCl injection 1-10 mL 1-10 mL, Intracatheter, PRN, Other, peripheral line flush, Starting on Tue04/29/20 at 1353, Until Tue04/30/20 at 1820, Flush peripheral IV catheter with 1-10 mL of normal saline before and after medications and prn to clear blood from the line or to verify patency. 0.9% NaCl injection 3 mL 3 mL, Intracatheter, EVERY 8 HOURS, First dose on Tue04/29/20 at 0800, Until Discontinued, Flush peripheral IV catheter with 3 mL of normal saline every 8 hours., Pre-op $ Given 04/29/2020 9:46 AM CATALOG LIBRARIAN 3 mL 0.9% NaCl injection 3 mL 3 mL, Intracatheter, EVERY 8 HOURS, First dose on Tue04/29/20 at 1430, Until Discontinued, Flush peripheral IV catheter with 3 mL of normal saline every 8 hours. $ Given 04/30/2020 6:01 AM CATALOG LIBRARIAN 3 mL $ Given 04/29/2020 8:55 PM CATALOG LIBRARIAN 3 mL $ Given 04/29/2020 3:09 PM CATALOG LIBRARIAN 3 mL aspirin chew tablet 81 mg 81 mg, Oral, DAILY, First dose on Tue04/30/20 at 0900, Until Discontinued $ Given 04/30/2020 8:05 AM CATALOG LIBRARIAN 81 mg atorvastatin (LIPITOR) tablet 80 mg 80 mg, Oral, AT BEDTIME, First dose on Tue04/29/20 at 2100, Until Discontinued $ Given 04/29/2020 8:55 PM CATALOG LIBRARIAN 80 mg clopidogrel (plaVIX) tablet 75 mg 75 mg, Oral, DAILY, First dose on Tue04/30/20 at 0900, Until Discontinued $ Given 04/30/2020 8:05 AM CATALOG LIBRARIAN 75 mg dextrose IV 12.5-25 g 12.5-25 g (25-50 mL), Intravenous, PRN, Bedside Glucose less than 70 mg/dL -If NOT able to eat and/or NPO and with IV Access, Starting on Tue04/29/20 at 1259, Until Tue04/30/20 at 1820, If NOT able to eat and/or NPO and with IV Access: For Bedside Glucose 54-69 mg/dL give 25 mls D50W IVP STAT For Bedside glucose 54 mg/dL or LESS verify with a second Bedside Glucose (from a different site) and give 50 mls D50W IVP STAT Re-check and Re-treat blood glucose EVERY 10-25 minutes until blood glucose GREATER than or equal to 80 mg/dl. NOTIFY PROVIDER OF HYPOGLYCEMIC EVENT. enoxaparin (LOVENOX) injection 40 mg 40 mg, Subcutaneous, DAILY, First dose on Tue04/29/20 at 1430, Until Discontinued, (for prefilled syringes) do not expel air bubble from the syringe prior to the injection Remind Patient to not rub injection site. Could cause hematoma. $ Given 04/30/2020 7:58 AM CATALOG LIBRARIAN 40 mg Abd Left Lower Quadr ant $ Given 04/29/2020 3:09 PM CATALOG LIBRARIAN 40 mg Ab d Left Lower Quadrant furosemide (LASIX) tablet 20 mg 20 mg, Oral, DAILY, First dose on Tue04/30/20 at 0900, Until Discontinued $ Given 04/30/2020 8:05 AM CATALOG LIBRARIAN 20 mg glucagon (GLUCAGEN) injection 1 mg 1 mg, Intramuscular, PRN, Bedside Glucose less than 70 mg/dL - If NOT able to eat and/or NPO and withOUT IV Access, Starting on Tue04/29/20 at 1259, Until Tue04/30/20 at 1820, If NOT able to eat and/or NPO and NO IV Access: For Bedside glucose 54-69 mg/dL Give 1 mg IM or SQ For Bedside Glucose LESS than 54 mg/dL verify with a second bedside glucose (from a different site) and Give 1 mg IM or SQ Re-check and Re-treat blood glucose EVERY 10-25 minutes until blood glucose GREATER than or equal to 80 mg/dl. NOTIFY PROVIDER OF HYPOGLYCEMIC EVENT. Reconstitute vial with 1 mL of sterile water for injection for a final concentration of 1 mg/mL; shake vial gently; use immediately and discard unused portion glucose (Diabetic Use) oral gel Oral, PRN, Other, Bedside Glucose less than 70 mg/dL -If able to eat and does not have swallowing difficulties, Starting on Tue04/29/20 at 1259, Until Tue04/30/20 at 1820, If able to eat and does not have swallowing difficulties: For Bedside Glucose 54 - 69 mg/dL Give 15 grams of oral carbohydrates - 1 glucose gel (see MAR) If patient refuses glucose gel, then offer: - 4 ounces of fruit juice OR - 4 ounces non-diet soda OR - 8 ounces of fat-free milk For Bedside Glucose LESS than 54 mg/dL verify with a second Bedside Glucose (from a different site) - If pt is symptomatic, do not delay treatment If the patient is exhibiting symptoms which are not consistent with the results obtained, confirm the glucose with a STAT laboratory test. Give 30 grams of oral carbohydrates - 2 glucose gels (see MAR) If patient refuses glucose gel, then offer: - 8 ounces of fruit juice OR - 8 ounces non-diet soda OR - 16 ounces of fat-free milk Re-check and Re-treat blood glucose EVERY 10-25 minutes until blood glucose GREATER than or equal to 80 mg/dl. NOTIFY PROVIDER OF HYPOGLYCEMIC EVENT. heparinized saline 2 units/ml infusion Intravenous, CONTINUOUS PRN, Starting on Tue04/29/20 at 1020, Until Tue04/29/20 at 1020 $ New Bag/Syringe 04/29/2020 10:20 AM CATALOG LIBRARIAN 1,000 mL insulin aspart (NovoLOG) pen 0-6 Units 0-6 Units, Subcutaneous, EVERY 4 HOURS, First dose on Tue04/29/20 at 0800, Until Discontinued, DO NOT HOLD CORRECTION BOLUS EVEN IF PATIENT IS NPO. BEDSIDE GLUCOSE MUST BE PERFORMED AND DOCUMENTED WITHIN 30-60 MINUTES OF CORRECTOIN INSULIN ADMINISTRATION. BG (mg/dL) LESS than 70= follow Hypoglycemic guidelines 150-200 = add 1 unit 201-250 = add 2 units 251-300 = add 3 units 301-350 = add 4 units NOTIFY PHYSICIAN FOR BLOOD GLUCOSE GREATER THAN 350. 351-400= add 5 units NOTIFY PHYSICIAN FOR BLOOD GLUCOSE GREATER THAN 350. GREATER than 400 = add 6 units NOTIFY PHYSICIAN FOR BLOOD GLUCOSE GREATER THAN 350., Pre-op $ Given 04/29/2020 9:46 AM CATALOG LIBRARIAN 1 Units Abd Left Lower Quadrant insulin aspart (NovoLOG) pen 0-6 Units 0-6 Units, Subcutaneous, 3 TIMES DAILY WITH MEALS, First dose on Tue04/29/20 at 1800, Until Discontinued, DO NOT HOLD CORRECTION BOLUS EVEN IF PATIENT IS NPO. If patient is eating meals and has orders for Mealtime Insulin Bolus, combine and give at the same time. BEDSIDE GLUCOSE MUST BE PERFORMED AND DOCUMENTED WITHIN 30-60 MINUTES OF CORRECTION INSULIN ADMINISTRATION. BG (mg/dL) LESS than 70= follow Hypoglycemic guidelines 150-200 = add 1 unit 201-250 = add 2 units 251-300 = add 3 units 301-350 = add 4 units NOTIFY PHYSICIAN FOR BLOOD GLUCOSE GREATER THAN 350. 351-400= add 5 units NOTIFY PHYSICIAN FOR BLOOD GLUCOSE GREATER THAN 350. GREATER than 400 = add 6 units NOTIFY PHYSICIAN FOR BLOOD GLUCOSE GREATER THAN 350. $ Given 04/30/2020 11:08 AM CATALOG LIBRARIAN 1 Units Left Arm $ Given 04/29/2020 5:03 PM CATALOG LIBRARIAN 1 Units Le ft Arm lidocaine (XYLOCAINE) 1 % injection Infiltration, ONCE PRN, Starting on Tue04/29/20 at 1123, Until Tue04/29/20 at 1123 $ Given 04/29/2020 11:23 AM CATALOG LIBRARIAN 10 mL lisinopril (PRINIVIL; ZESTRIL) tablet 2.5 mg 2.5 mg, Oral, DAILY, First dose on Tue04/30/20 at 0900, Until Discontinued $ Given 04/30/2020 8:05 AM CATALOG LIBRARIAN 2.5 mg magnesium sulfate 4 g in 100 mL bolus 4 g, at 25 mL/hr, Administer over 240 Minutes, Intravenous, ONCE, 1 dose, On Tue04/30/20 at 0730, Infuse at 1 gm/hr $ New Bag/Syringe 04/30/2020 9:23 AM CATALOG LIBRARIAN 4 g 25 mL/hr metoprolol succinate XL 24hr (TOPROL XL) tablet 12.5 mg 12.5 mg, Oral, DAILY, First dose on Tue04/29/20 at 1330, Until Discontinued, May cut in half but do not crush or chew $ Given 04/30/2020 7:58 AM CATALOG LIBRARIAN 12.5 mg $ Given 04/29/2020 3:09 PM CATALOG LIBRARIAN 12.5 mg perflutren Lipid Microsphere (DEFINITY) injection SUSP 0.5 mL 0.5 mL, Intravenous, INTRA-PROCEDURE MULTIPLE, 6 doses, Starting on Tue04/29/20 at 0849, Until Tue04/30/20 at 1820, For Echo Procedure - Per Protocol Give slowly Shake well before using. $ Given 04/29/2020 8:50 AM CATALOG LIBRARIAN 0.5 mL perflutren Lipid Microsphere (DEFINITY) injection SUSP 0.5 mL 0.5 mL, Intravenous, INTRA-PROCEDURE MULTIPLE, 6 doses, Starting on Tue04/30/20 at 0848, Until Tue04/30/20 at 1820, For Echo Procedure - Per Protocol Give slowly Shake well before using. $ Given 04/30/2020 9:04 AM CATALOG LIBRARIAN 0.5 mL phenol (CHLORASEPTIC) 1.4 % liquid Oral, PRN, Sore Throat, Starting on Tue04/30/20 at 0242, Until Tue04/30/20 at 1820, . WASTE DISPOSAL INSTRUCTIONS: Black Bin Disposal required. $ Given 04/30/2020 4:39 AM CATALOG LIBRARIAN tamsulosin (FLOMAX) capsule 0.4 mg 0.4 mg, Oral, DAILY, First dose on Tue04/29/20 at 1700, Until Discontinued, At the same time every day after a meal. Do not crush, chew $ Given 04/30/2020 7:58 AM CATALOG LIBRARIAN 0.4 mg $ Given 04/29/2020 4:44 PM CATALOG LIBRARIAN 0.4 mg documented in this encounter Active and Recently Administered Medications Times are shown in CATALOG LIBRARIAN. Scheduled Medication Order 04/28/2020 04/29/2020 04/30/2020 0.9% NaCl injection 3 mL (CANCELED)(Linked Group 1) 3 mL, Intracatheter, EVERY 8 HOURS, First dose on Tue04/29/20 at 0800, Until Discontinued, Flush peripheral IV catheter with 3 mL of normal saline every 8 hours., Pre-op 0946 ($ Given - Provider: Rachell Mariee RN) 0.9% NaCl injection 3 mL(Linked Group 2) 3 mL, Intracatheter, EVERY 8 HOURS, First dose on Tue04/29/20 at 1430, Until Discontinued, Flush peripheral IV catheter with 3 mL of normal saline every 8 hours. 1509 ($ Given - Provider: Crow Jon RN)2055 ($ Given - Provider: Ghada Kwon, DEANA) 0601 ($ Given - Provider: Ghada Kwon, DEANA)1400 (Due) aspirin chew tablet 81 mg 81 mg, Oral, DAILY, First dose on Tue04/30/20 at 0900, Until Discontinued 0805 ($ Given - Prov ider: Crow Jon RN) atorvastatin (LIPITOR) tablet 80 mg 80 mg, Oral, AT BEDTIME, First dose on Tue04/29/20 at 2100, Until Discontinued 2054 ($ Given - Provider: Ghada Kwon RN) clopidogrel (plaVIX) tablet 75 mg 75 mg, Oral, DAILY, First dose on Tue04/30/20 at 0900, Until Discontinued 804 ($ Given - Prov ider: Crow Jon RN) enoxaparin (LOVENOX) injection 40 mg 40 mg, Subcutaneous, DAILY, First dose on Tue04/29/20 at 1430, Until Discontinued, (for prefilled syringes) do not expel air bubble from the syringe prior to the injection Remind Patient to not rub injection site. Could cause hematoma. 1509 ($ Given - Provider: Crow Jon RN) 0758 ($ Given - Provider: Crow Jon RN) furosemide (LASIX) tablet 20 mg 20 mg, Oral, DAILY, First dose on Tue04/30/20 at 0900, Until Discontinued 804 ($ Given - Prov ider: Crow Jon RN) insulin aspart (NovoLOG) pen 0-6 Units (CANCELED) 0-6 Units, Subcutaneous, EVERY 4 HOURS, First dose on Tue04/29/20 at 0800, Until Discontinued, DO NOT HOLD CORRECTION BOLUS EVEN IF PATIENT IS NPO. BEDSIDE GLUCOSE MUST BE PERFORMED AND DOCUMENTED WITHIN 30-60 MINUTES OF CORRECTOIN INSULIN ADMINISTRATION. BG (mg/dL) LESS than 70= follow Hypoglycemic guidelines 150-200 = add 1 unit 201-250 = add 2 units 251-300 = add 3 units 301-350 = add 4 units NOTIFY PHYSICIAN FOR BLOOD GLUCOSE GREATER THAN 350. 351-400= add 5 units NOTIFY PHYSICIAN FOR BLOOD GLUCOSE GREATER THAN 350. GREATER than 400 = add 6 units NOTIFY PHYSICIAN FOR BLOOD GLUCOSE GREATER THAN 350., Pre-op 0946 ($ Given - Provider: Rachell Mariee RN)1329 (Canceled Entry - Provider: Crow Jon RN - Comment: OR DID NOT DOCUMENT ON THIS.) insulin aspart (NovoLOG) pen 0-6 Units 0-6 Units, Subcutaneous, 3 TIMES DAILY WITH MEALS, First dose on Tue04/29/20 at 1800, Until Discontinued, DO NOT HOLD CORRECTION BOLUS EVEN IF PATIENT IS NPO. If patient is eating meals and has orders for Mealtime Insulin Bolus, combine and give at the same time. BEDSIDE GLUCOSE MUST BE PERFORMED AND DOCUMENTED WITHIN 30-60 MINUTES OF CORRECTION INSULIN ADMINISTRATION. BG (mg/dL) LESS than 70= follow Hypoglycemic guidelines 150-200 = add 1 unit 201-250 = add 2 units 251-300 = add 3 units 301-350 = add 4 units NOTIFY PHYSICIAN FOR BLOOD GLUCOSE GREATER THAN 350. 351-400= add 5 units NOTIFY PHYSICIAN FOR BLOOD GLUCOSE GREATER THAN 350. GREATER than 400 = add 6 units NOTIFY PHYSICIAN FOR BLOOD GLUCOSE GREATER THAN 350. 1703 ($ Given - Provider: Crow Jon RN) 0731 (Not Administered - Provider: Crow Jon RN - Reason: Patient Condition - Comment: bg 126)1108 ($ Given - Provider: Crow Jon RN) lisinopril (PRINIVIL; ZESTRIL) tablet 2.5 mg 2.5 mg, Oral, DAILY, First dose on Tue04/30/20 at 0900, Until Discontinued 0805 ($ Given - Prov ider: Crow Jon RN) magnesium sulfate 4 g in 100 mL bolus (COMPLETED) 4 g, at 25 mL/hr, Administer over 240 Minutes, Intravenous, ONCE, 1 dose, On Tue04/30/20 at 0730, Infuse at 1 gm/hr 0923 ($ New Bag/Syri nge - Provider: Crow Jon RN)1400 (Stopped - Provider: Crow Jon, RN) metoprolol succinate XL 24hr (TOPROL XL) tablet 12.5 mg 12.5 mg, Oral, DAILY, First dose on Tue04/29/20 at 1330, Until Discontinued, May cut in half but do not crush or chew 1509 ($ Given - Provider: Crow Jon, DEANA) 0758 ($ Given - Provider: Crow Jon, RN) perflutren Lipid Microsphere (DEFINITY) injection SUSP 0.5 mL 0.5 mL, Intravenous, INTRA-PROCEDURE MULTIPLE, 6 doses, Starting on Tue04/29/20 at 0849, Until Tue04/30/20 at 1820, For Echo Procedure - Per Protocol Give slowly Shake well before using. 0850 ($ Given - Provider: Timothy Nelson) perflutren Lipid Microsphere (DEFINITY) injection SUSP 0.5 mL 0.5 mL, Intravenous, INTRA-PROCEDURE MULTIPLE, 6 doses, Starting on Tue04/30/20 at 0848, Until Tue04/30/20 at 1820, For Echo Procedure - Per Protocol Give slowly Shake well before using. 0904 ($ Given - Prov ider: Anjelica Yoder, TIBURCIO) tamsulosin (FLOMAX) capsule 0.4 mg 0.4 mg, Oral, DAILY, First dose on Tue04/29/20 at 1700, Until Discontinued, At the same time every day after a meal. Do not crush, chew 1644 ($ Given - Provider: Crow Jon, RN) 0758 ($ Given - Provider: Crow Jon, RN) PRN Medication Order 04/28/2020 04/29/2020 04/30/2020 0.9% NaCl infusion (COMPLETED) Intravenous, CONTINUOUS PRN, Starting on Tue04/29/20 at 1020, Until Tue04/29/20 at 1020 1020 ($ New Bag/Syringe - Provider: Aquiles Dumont MD) 0.9% NaCl injection 1-10 mL(Linked Group 2) 1-10 mL, Intracatheter, PRN, Other, peripheral line flush, Starting on Tue04/29/20 at 1353, Until Tue04/30/20 at 1820, Flush peripheral IV catheter with 1-10 mL of normal saline before and after medications and prn to clear blood from the line or to verify patency. dextrose IV 12.5-25 g 12.5-25 g (25-50 mL), Intravenous, PRN, Bedside Glucose less than 70 mg/dL -If NOT able to eat and/or NPO and with IV Access, Starting on Tue04/29/20 at 1259, Until Tue04/30/20 at 1820, If NOT able to eat and/or NPO and with IV Access: For Bedside Glucose 54-69 mg/dL give 25 mls D50W IVP STAT For Bedside glucose 54 mg/dL or LESS verify with a second Bedside Glucose (from a different site) and give 50 mls D50W IVP STAT Re-check and Re-treat blood glucose EVERY 10-25 minutes until blood glucose GREATER than or equal to 80 mg/dl. NOTIFY PROVIDER OF HYPOGLYCEMIC EVENT. glucagon (GLUCAGEN) injection 1 mg 1 mg, Intramuscular, PRN, Bedside Glucose less than 70 mg/dL - If NOT able to eat and/or NPO and withOUT IV Access, Starting on Tue04/29/20 at 1259, Until Tue04/30/20 at 1820, If NOT able to eat and/or NPO and NO IV Access: For Bedside glucose 54-69 mg/dL Give 1 mg IM or SQ For Bedside Glucose LESS than 54 mg/dL verify with a second bedside glucose (from a different site) and Give 1 mg IM or SQ Re-check and Re-treat blood glucose EVERY 10-25 minutes until blood glucose GREATER than or equal to 80 mg/dl. NOTIFY PROVIDER OF HYPOGLYCEMIC EVENT. Reconstitute vial with 1 mL of sterile water for injection for a final concentration of 1 mg/mL; shake vial gently; use immediately and discard unused portion glucose (Diabetic Use) oral gel Oral, PRN, Other, Bedside Glucose less than 70 mg/dL -If able to eat and does not have swallowing difficulties, Starting on Tue04/29/20 at 1259, Until Tue04/30/20 at 1820, If able to eat and does not have swallowing difficulties: For Bedside Glucose 54 - 69 mg/dL Give 15 grams of oral carbohydrates - 1 glucose gel (see MAR) If patient refuses glucose gel, then offer: - 4 ounces of fruit juice OR - 4 ounces non-diet soda OR - 8 ounces of fat-free milk For Bedside Glucose LESS than 54 mg/dL verify with a second Bedside Glucose (from a different site) - If pt is symptomatic, do not delay treatment If the patient is exhibiting symptoms which are not consistent with the results obtained, confirm the glucose with a STAT laboratory test. Give 30 grams of oral carbohydrates - 2 glucose gels (see MAR) If patient refuses glucose gel, then offer: - 8 ounces of fruit juice OR - 8 ounces non-diet soda OR - 16 ounces of fat-free milk Re-check and Re-treat blood glucose EVERY 10-25 minutes until blood glucose GREATER than or equal to 80 mg/dl. NOTIFY PROVIDER OF HYPOGLYCEMIC EVENT. heparinized saline 2 units/ml infusion (COMPLETED) Intravenous, CONTINUOUS PRN, Starting on Tue04/29/20 at 1020, Until Tue04/29/20 at 1020 1020 ($ New Bag/Syringe - Provider: Aquiles Dumont MD) lidocaine (XYLOCAINE) 1 % injection (COMPLETED) Infiltration, ONCE PRN, Starting on Tue04/29/20 at 1123, Until Tue04/29/20 at 1123 1123 ($ Given - Provider: Aquiles Dumont MD - Comment: Left Groin) phenol (CHLORASEPTIC) 1.4 % liquid Oral, PRN, Sore Throat, Starting on Tue04/30/20 at 0242, Until Tue04/30/20 at 1820, . WASTE DISPOSAL INSTRUCTIONS: Black Bin Disposal required. 0439 ($ Given - Provider: Ghada Kwon RN) Linked Groups Order Group 1: SALINE LOCK, INSERT AND MAINTAIN (CANCELED) Routine, CONTINUOUS, Starting on Tue04/29/20 at 0800, Until Specified, Pre-op, New collection And 0.9% NaCl injection 3 mL (CANCELED)Jump to med 3 mL, Intracatheter, EVERY 8 HOURS, First dose on Tue04/29/20 at 0800, Until Discontinued, Flush peripheral IV catheter with 3 mL of normal saline every 8 hours., Pre-op And 0.9% NaCl injection 1-10 mL (CANCELED) 1-10 mL, Intracatheter, PRN, Other, peripheral line flush, Starting on Tue04/29/20 at 0750, Until Tue04/29/20 at 1324, Flush peripheral IV catheter with 1-10 mL of normal saline before and after medications and prn to clear blood from the line or to verify patency., Pre-op Group 2: SALINE LOCK, INSERT AND MAINTAIN (CANCELED) Routine, CONTINUOUS, Starting on Tue04/29/20 at 1400, Until Specified, New collection And 0.9% NaCl injection 3 mLJump to med 3 mL, Intracatheter, EVERY 8 HOURS, First dose on Tue04/29/20 at 1430, Until Discontinued, Flush peripheral IV catheter with 3 mL of normal saline every 8 hours. And 0.9% NaCl injection 1-10 mLJump to med 1-10 mL, Intracatheter, PRN, Other, peripheral line flush, Starting on Tue04/29/20 at 1353, Until Tue04/30/20 at 1820, Flush peripheral IV catheter with 1-10 mL of normal saline before and after medications and prn to clear blood from the line or to verify patency. documented in this encounter Care Teams Handbag Frames Inspector Relationship Specialty Start Date End Date Floyd Mckinney MD [address] [place] [id number] PCP - General Internal Medicine 04/29/20 documented as of this encounter
--- OUTSIDE RECORDS SUMMARY | 2024-05-22 02:13 | XMS_ITS | Encounter Summary ---
Author Organization [facility] Health Address [address] [facility] [place] [address] Care Team Providers Care Salt Refiner Name Role Phone Floyd Mckinney MD Primary Care Provider [phone] Encounter Details Date Type Department Care Team (Late st Contact Info) Description 04/29/2021 Orders Only [facility] [address] [place] [address] Kaylee Mccain, BEHAVIORAL HEALTH DIRECTOR-HUMAN MACHINE INTERFACE ENGINEER [address] [place] [address] S/P TAVR (transcatheter aortic valve replacement) Social History Tobacco Use Types Packs/Day Years [...] as of this encounter Visit Diagnoses Diagnosis S/P TAVR (transcatheter aortic valve replacement) documented in this encounter Care Teams Salt Refiner Relationship Specialty Start Date End Date Floyd Mckinney MD [address] [place] [phone] PCP - General Internal Medicine 04/29/20 documented as of this encounter
--- OUTSIDE RECORDS SUMMARY | 2024-05-22 02:13 | XMS_ITS | Encounter Summary ---
Author Organization [facility] Health Address [address] [facility] [place] [address] Care Team Providers Care Paint Mixer Machine Name Role Phone Unavailable Primary Care Provider Unavailabl e Encounter Details Date Type Department Care Team (Late st Contact Info) Description 04/25/2020 11:40 AM SEWAGE PLANT ATTENDANT - 04/25/2020 11:59 PM SEWAGE PLANT ATTENDANT Hospital Encounter [facility] [address] [place] [id number] Jay Stewart MD [address] [facility] [address] [place] [address] Discharge Disposition: Home or Self Care Social [...] COVID-19? 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/2020 10:39 AM SEWAGE PLANT ATTENDANT documented as of this encounter Functional [...] No 03/19/2020 documented as of this encounter Medications at Time of Discharge [...] same time every day after a meal. glimepiride (AMARYL) 2 MG tablet Take 2 mg by mouth daily with breakfast 04/29/2020 lisinopril (PRINIVIL; ZESTRIL) 2.5 MG tablet Take 1 tablet by mouth once daily 30 tablet 3 03/19/2020 06/24/2020 documented as of this encounter Plan of Treatment Not on file documented as of this encounter Procedures Procedure Name Priority Date/Time Associated Diagnosis Comments SARS-COV-2 (COVID-19) IN HOUSE Routine 04/25/2020 2:21 PM SEWAGE PLANT ATTENDANT Pre-operative clearance Class 2 congestive heart failure, chronic, combined (HCC) Aortic valve stenosis, etiology of cardiac valve disease unspecified documented in this encounter Results * SARS-COV-2 (COVID-19) IN HOUSE (04/25/2020 2:21 PM SEWAGE PLANT ATTENDANT) COVID-19 PCR Not detected Not detected 04/26/2020 7:26 PM SEWAGE PLANT ATTENDANT [facility] Microbiology SPECIMEN FROM NASOPHARYNGEAL STRUCTURE / Unknown Collection / Unknown 04/25/2020 2:21 PM SEWAGE PLANT ATTENDANT 04/25/2020 2:21 PM SEWAGE PLANT ATTENDANT Narrative [facility] - 04/26/2020 7:26 PM SEWAGE PLANT ATTENDANT This nucleic acid amplification assay performance was validated by [facility]. This test has been authorized by the Food and Drug administration (FDA)under an Emergency??Use Authorization (EUA). This test has been validated in accordance with the FDA's guidance document Policy for Diagnostic Testing in Laboratories Certified to perform High Complexity Testing under CLIA prior to Emergency Use Authorization for Coronavirus Disease-2019 during the Public Health Emergency issued on July 21, 2019. FDA independent review of this validation is pending. This test is only authorized for the duration of time the declaration that circumstances exist justifying the authorization of emergency use of in vitro diagnostic tests for detection of SARS-CoV-2 virus and/or diagnosis of COVID-19 infection under section 564(b)(1) of the Act, 21 U.S.C 360bbb-3 (b)(1), unless the authorization is terminated or revoked sooner. Fact Sheets for this EUA assay are available upon request. Kaylee Mccain CYBERATHLETE-PETROLEUM BLENDING PLANT OPERATOR LAB - MICROBIOLO GY ORDERABLES [facility] [address] [place] [address], [facility] [phone] documented in this encounter Visit Diagnoses Diagnosis Pre-operative clearance Preoperative examination, unspecified Class 2 congestive heart failure, chronic, combined (HCC) Aortic valve stenosis, etiology of cardiac valve disease unspecified documented in this encounter
--- OUTSIDE RECORDS SUMMARY | 2024-05-22 02:13 | XMS_ITS | Encounter Summary ---
Author Organization [facility] Health Address [address] [facility] [place] [address] Care Team Providers Care Strategy Director Name Role Phone Floyd Mckinney MD Primary Care Provider + [phone] Reason for Visit * Reason Onset Date Comments Follow-up 06/15/2021 Encounter Details Date Type Department Care Team (Late st Contact Info) Description 06/15/2021 Telephone [facility] [address] [facility] [address] [place] [address] Kaylee Mccain, FUR FARMER-BUSINESS RULES ANALYST [address] [place] [address] Follow-up Social History Tobacco Use Types Packs/Day Years [...] Telephone Encounter - Kaylee Mccain APRN-CNP - 06/15/2021 12:02 PM TUBE CLEANER Faxed over results of cardiac cath and tavr to Dr. Burdick's office. Faxed letter to send over results of recent echo for one year follow up TAVR to [facility] for records. OLIVIA Mills CLEANER documented in this encounter Plan of Treatment Not on file documented as of this encounter Visit Diagnoses Not on filedocumented in this encounter Care Teams Strategy Director Relationship Specialty Start Date End Date Floyd Mckinney MD [address] [place] [phone] PCP - General Internal Medicine 04/29/20 documented as of this encounter
--- OUTSIDE RECORDS SUMMARY | 2024-05-22 02:13 | XMS_ITS | Encounter Summary ---
Author Organization [facility] Health Address [address] [facility] [place] [address] Care Team Providers Care Vocational Case Manager Name Role Phone Floyd Mckinney MD Primary Care Provider + [phone] Reason for Visit * Reason Onset Date Comments Follow-up 06/06/2020 Encounter Details Date Type Department Care Team (Late st Contact Info) Description 06/06/2020 Telephone [facility] [address] [facility] [address] [place] [address] Kaylee Mccain, NEW HOME SALES CONSULTANT-SHOE HANDLER [address] [place] [address] Follow-up Social History Tobacco Use Types Packs/Day [...] Telephone Encounter - Kaylee Mccain APRN-CNP - 06/06/2020 8:51 AM MOTOR AND CHASSIS INSPECTOR Received tracing from [employer] from evening of May 23. Forwarded to Dr. Stewart for review. Likely 15 sec of Vtach. Patient reports no symptoms during this time. Patient reports no symptoms at all. Hedoes state he exercises daily for about 30 min and remains symptom free. Patient reports he removesthe vest when showering and occasionally has to reset it because it acts up . Forwarded information to Dr. Stewart. Patient has ECHO scheduled 06/18. Will likely plan for follow up with EP after ECHO in early . Patient is agreeable to the plan and will be notified with details later. OLIVIA Mills R AND CHASSIS INSPECTOR documented in this encounter Plan of Treatment Not on file documented as of this encounter Visit Diagnoses Not on filedocumented in this encounter Care Teams Vocational Case Manager Relationship Specialty Start Date End Date Floyd Mckinney MD [address] [place] [phone] PCP - General Internal Medicine 04/29/20 documented as of this encounter
--- OUTSIDE RECORDS SUMMARY | 2024-05-22 02:13 | XMS_ITS | Encounter Summary ---
Author Organization [facility] Health Address [address] [facility] [place] [address] Care Team Providers Care Due Diligence Coordinator Name Role Phone Unavailable Primary Care Provider Unavailabl e Reason for Visit * Reason Onset Date Comments Results 04/25/2020 Encounter Details Date Type Department Care Team (Late st Contact Info) Description 04/25/2020 Telephone [facility] [address] [facility] [address] [place] [address] Kaylee Mccain, CIGARETTE PACKING MACHINE OPERATOR-COOKY PACKER [address] [place] [address] Results Social History Tobacco Use Types Packs/Day Years [...] COVID-19? 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/2020 10:39 AM PIANO AND ORGAN REFINISHER documented as of this encounter Functional Status Functional Status Response Date of Assess ment Is person deaf or have serious hearing difficult y? No 03/19/2020 Is person blind or have serious difficulty seein kwabena? No 03/19/2020 Does person have serious dif ficulty walking/climbing stairs? No 03/19/2020 Does person have difficulty dressing/bathing? No 03/19/2020 Does person have difficulty doing errands alone? No 03/19/2020 Cognitive Status Response Date of Assessm ent Does person have difficulty concentrating/remembering/making decisions? No 03/19/2020 documented as of this encounter Miscellaneous Notes * Telephone Encounter - Kaylee Mccain APRN-CNP - 04/25/2020 2:28 PM PIANO AND ORGAN REFINISHER Critical lab value of 51 glucose this was after eating breakfast. Patient exercises daily in the morning. a1c 5.9 03/12 6.5 03/15 This morning blood sugar was 109. Patient checks his blood sugars every day. Patient was asymptomatic of low blood sugar. Advised patient to stop the glimepiride for now due to risk of hypoglycemia being greater than benefit. A1C is <7 which is ideal for his age of 79. Patient will be monitored closely during hospital stay and adjustments can be made at that time if needed from POCT blood glucose. Can consult endocrine though likely will not need to. Discussed the patient discussing this change with his PCP and requested he follow up closely. Advised he give this RIGGING SLINGER name and contact information if there are any questions or concerns. Patient is agreeable to plan. All other labs are WNL. Some mild anemia present on cbc. Pending COVID test results. Patient understands he is to continue social isolating to avoid any risk of infection. OLIVIA Mills O AND ORGAN REFINISHER documented in this encounter Plan of Treatment Not on file documented as of this encounter Visit Diagnoses Not on filedocumented in this encounter
--- OUTSIDE RECORDS SUMMARY | 2024-05-22 02:13 | XMS_ITS | Encounter Summary ---
Author Organization [facility] Address [address] [facility] [place] [address] Care Team Providers Care Wall Worker Name Role Phone Floyd Mckinney MD Primary Care Provider Reason for Referral * Radiology Services (Routine) - Closed Specialty Diagnoses / Procedures Referred By Contac t Referred To Contact Diagnoses Ischemic cardiomyopathy Procedures EP INSERT SC OR DC PACER ICD PG Enrike Cronin MD [address] [place] [address] Referral ID Status Reason Start Date Expiration Date Visits Re quested Visits Authorized [id number] Closed 08/05/2020 08/05/2021 1 1 Reason for Visit * Reason Comments CHF Follow-up Encounter Details Date Type Department Care Team (Latest Contact Info) Description 08/05/2020 11:40 AM CDT Office Visit [facility] [address] [facility] [address] [place] [address] Enrike Cronin MD [address] [place] [address] Ischemic cardiomyopathy (Primary Dx); NSTEMI (non-ST elevated myocardial infarction) (HCC) Social History Tobacco Use Types Packs/Day Years [...] on file documented as of this encounter Last Filed Vital Signs Vital Sign Reading Time Taken Comments Blood Pressure 130/78 08/05/2020 10:41 AM CDT Pulse 64 08/05/2020 10:41 AM CDT Temperature 35.6 ??C (96 ??F) 08/05/2020 10:41 AM CDT Respiratory Rate - - Oxygen Saturation 98% 08/05/2020 10:41 AM CDT Inhaled Oxygen Concentration - - Weight 86.2 kg (190 lb) 08/05/2020 10:41 AM CDT Height 180.3 cm (5' 11 ) 08/05/2020 10:41 AM CDT Body Mass Index 26.5 08/05/2020 10:41 AM CDT documented in this encounter Functional Status Functional [...] No 03/19/2020 documented as of this encounter Patient Instructions * Patient Instructions* Rossy Rebollar, DEANA - 08/05/2020 11:38 AM CDT Dear Padmini Amador, Your doctor has ordered a Defibrillator Implant. You will receive a call from [facility] to schedule this. Here are your instructions for your upcoming procedure. 1. Please get labs drawn 1-2 weeks prior to procedure. This is at [address] [facility] [address] in the outpatient lab. No need to fast or hold meds for the blood draw. 2. Procedure date/time TBD. Other than medications, do not to eat or drink anything after midnight the night prior to your procedure. The morning of your procedure, take your morning medications with small sips of water. Pleasedon't take lasix, metformin, glimepiride the morning of your procedure. Please arrive and check in at [facility] at the time you were instructed. [facility] is located at [address] [facility]. From [facility], turn in at the Main Entrance orsteffi can enter by going west on [address] This will take you to the parking garage. Park on the [place] side of the garage and take the Hospital elevators to Level 1. ($2 parking fee with validated ti cket.) Exit the elevator to your right and walk straight down the hallway to the acoustical engineer desk. Please continue down the arizmendi to the [facility]. This family lounge is past the public elevators and located on your right. Please complete your check in/registration in this waiting room. You will be spending the night in the hospital for observation. Please pack an overnight bag, bringphoto ID and insurance card, and leave valuables at home. Please let us know if you have questions. Thanks, Rossy Rebollar RN [phone] documented in this encounter Progress Notes * Rossy Rbeollar RN - 08/05/2020 11:42 AM CDT After the patient's visit, he stated that he would like to discuss the ICD with his and think about it. He will call Rossy LEBLANC at [phone] when he has made a decision whether to get ICD or not. Pt was given [facility] shared decision making tool, and thorough time was spent with patient discussing indications for ICD and answering his questions. Gave patient name and phone number to call with decision. * Enrike Cronin MD - 08/05/2020 11:09 AM CDT Cardiology (EP) Clinic Note 08/05/2020 11:10 AM ?? Assessment and Plan ?? 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 He is wearing a LifeVest that has not delivered any shocks. He is tolerating his medicines well and is coming today to discusshis eligibility for primary prevention ICD now that it has been more than 3 months following his last cardiac intervention. He denies shortness of breath, chest pain, palpitations, dizziness and syncope. He had an echo today that showed LVEF of about 30% despite GDMT. Therefore, we offered the patient primary prevention ICD. The risks and benefits of the procedure were discussed with the patient who agreed to proceed. ?? Plan Echo that showed ?? HPI ?? 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 He is wearing a LifeVest that has not delivered any shocks. He is tolerating his medicines well and is coming today to discusshis eligibility for primary prevention ICD now that it has been more than 3 months following his last cardiac intervention. He denies shortness of breath, chest pain, palpitations, dizziness and syncope. ?? Patient Active Problem List ?? Diagnosis Date Noted ??? S/P TAVR (transcatheter aortic valve replacement) 04/29/2020 ? Priority: Not Prioritized ??? NSTEMI (non-ST elevated myocardial infarction) ? Priority: Not Prioritized ??? Severe aortic stenosis ? Priority: Not Prioritized ??? Moderate mitral insufficiency ? Priority: Not Prioritized ??? Ischemic cardiomyopathy ? Priority: Not Prioritized ??? Essential hypertension ? Priority: Not Prioritized ??? Mixed hyperlipidemia ? Priority: Not Prioritized ??? Type 2 diabetes mellitus with diabetic nephropathy, without long-term current use of insulin ? Priority: Not Prioritized ??? Acute on chronic combined systolic and diastolic heart failure ? Priority: Not Prioritized ??? Congestive heart failure 03/14/2020 ? Priority: Not Prioritized ? PMH: Past Medical History Past Medical History: Diagnosis Date ??? CAD (coronary artery disease) ? HFrEF (heart failure with reduced ejection fraction) ? HLD (hyperlipidemia) ? HTN (hypertension) ? NJ (myocardial infarction) ? Psoriasis ? Past Surgical Hx: Past Surgical History Past Surgical History: Procedure Laterality Date ??? Back Surgery ?? 1998 ??? Cholecystectomy ? HERNIA REPAIR, UMBILICAL ? Allergies: No Known Allergies ?? Current Medications: Current Outpatient Medications on File Prior to Visit Medication Sig Dispense Refill ??? aspirin (ASPIRIN) 81 MG chew tablet Take 1 tablet by mouth once daily 30 tablet 11 ??? atorvastatin (LIPITOR) 40 MG tablet Take 1 (one) tablet by mouth once daily 30 tablet 5 ??? SHAKA CONTOUR NEXT TEST test strip ??? clopidogrel (PLAVIX) 75 MG tablet Take 1 tablet by mouth once daily 30 tablet 11 ??? finasteride (PROSCAR) 5 MG tablet Take 5 mg by mouth once daily ??? furosemide (LASIX) 20 MG tablet Take 1 tablet by mouth once daily 30 tablet 3 ??? glimepiride (AMARYL) 2 MG tablet Take 2 mg by mouth daily with breakfast ??? lisinopril (PRINIVIL;ZESTRIL) 5 MG tablet Take 1 (one) tablet by mouth once daily 90 tablet 3 ??? metFORMIN CR 24hr modified (GLUMETZA) 1000 MG (MOD) tablet Take 1,000 mg by mouth 2 times daily ??? metoprolol succinate XL 24hr (TOPROL XL) 25 MG tablet Take 25 mg by mouth once daily ??? tamsulosin (FLOMAX) 0.4 MG capsule Take 0.4 mg by mouth once daily At the same time every day after a meal. No current facility-administered medications on file prior to visit. ?? OBJECTIVE: Wt Readings from Last 3 Encounters: 06/24/20 192 lb (87.1 kg) 06/18/20 192 lb (87.1 kg) 04/29/20 192 lb 3.2 oz (87.2 kg) ?? Vitals: 08/05/20 1041 BP: 130/78 Pulse: 64 Temp: (!) 96 ??F (35.6 ??C) SpO2: 98% Weight: 190 lb (86.2 kg) Height: 5' 11 (1.803 m) Estimated body mass index is 26.78 kg/m?? as calculated from the following: Height as of this encounter: 5' 11 (1.803 m). Weight as of this encounter: 192 lb (87.1 kg). Physical Exam: General: alert, well appearing, and in no distress. HEENT: PERRL. MMM, clear conjunctiva. No LAD or thyromegaly Heart: RRR, Normal S1 and S2. No murmurs Chest: breath sounds CTA, no wheezes or crackles Abdomen: soft, non tender, non distended, normal bowel sounds Extremities: no lower extremity edema. 2+ distal pulses Neuro: CN II-XII grossly intact. ? Enrike Cronin MD documented in this encounter Plan of Treatment Scheduled Orders Name Type Priority Associated Diagnoses Orde r Schedule EP INSERT SC OR DC PACER ICD PG Electrophys Radiant Routine Ischemic cardiomyopathy Expected: 08/05/2020, Expires: 08/05/2021 documented as of this encounter Procedures Procedure Name Priority Date/Time Associated Diagnosis Comments PROC EKG IN CLINIC Routine 08/05/2020 10:46 AM CD T NSTEMI (non-ST elevated myocardial infarction) (HCC) documented in this encounter Results * EKG - Clinic Performed (08/05/2020 10:46 AM CDT) Enrike Cronin MD ECG ORDERABL ES documented in this encounter Visit Diagnoses Diagnosis Ischemic cardiomyopathy- Primary Other specified forms of chronic ischemic heart disease NSTEMI (non-ST elevated myocardial infarction) (HCC) Acute myocardial infarction, subendocardial infarction, episode of care unspecified documented in this encounter Care Teams Wall Worker Relationship Specialty Start Date End Date Floyd Mckin[place] MD [address] [place] [address] PCP - General Internal Medicine 04/29/20 documented as of this encounter
--- OUTSIDE RECORDS SUMMARY | 2024-05-22 02:13 | XMS_ITS | Encounter Summary ---
Author Organization [facility] Health Address [address] [facility] [place] [address] Care Team Providers Care Kier Operator Name Role Phone Unavailable Primary Care Provider Unavailabl e Reason for Visit * Reason Onset Date Comments Encounter Opened In Error 04/25/2020 Encounter Details Date Type Department Care Team (Late st Contact Info) Description 04/25/2020 Telephone [facility] [address] [facility] [address] [place] [address] Kaylee Mccain, CAR HOP-ANIMAL HUSBANDRY TEACHER [address] [place] [address] Encounter Opened In Error Social History Tobacco Use Types Packs/Day Years [...] COVID-19? 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/2020 10:39 AM HELPER MARBLE FINISHER documented as of this encounter Functional Status [...]
--- OUTSIDE RECORDS SUMMARY | 2024-05-22 02:13 | XMS_ITS | Encounter Summary ---
Author Organization [facility] Address [address] [facility] [place] [address] Care Team Providers Care Esthetician/Spa Coordinator Name Role Phone Floyd Mckinney MD Primary Care Provider + [phone] Reason for Referral * Radiology Services (Routine) - Closed Specialty Diagnoses / Procedures Referred By Contac t Referred To Contact Cardiology Diagnoses S/P TAVR (transcatheter aortic valve replacement) Procedures ECHO COMPLETE Kaylee Mccain, OLIVIA [address] [place] [address] Referral ID Status Reason Start Date Expiration Date Visits Re quested Visits Authorized [id number] Closed 04/29/2021 04/29/2022 1 1 E COMMERCE MARKETING MANAGER Reason for Visit * Reason Onset Date Comments Follow-up 04/29/2021 1 year post tavr Encounter Details Date Type Department Care Team (Late st Contact Info) Description 04/29/2021 Telephone [facility] [address] [facility] [address] [place] [address] Kaylee Mccain, IGNACIA-RADIO REPAIR TEACHER [address] [place] [address] Follow-up (1 year post tavr ) Social History Tobacco Use Types Packs/Day Years [...] Notes * Telephone Encounter - Kaylee Mccain APRN-DAVONTE - 04/29/2021 11:35 AM E COMMERCE MARKETING MANAGER [place] Cardiomyopathy Questionnaire (CQ-12) Completed with patient over phone on 04/29/21. 1. Heart Failure affects different people in different ways. Some feel shortness of breath while others feel fatigue. Please indicate how much you are limited by heart failure (shortness of breath orfatigue) in your ability to do the following activities over the past 2 weeks. A. Showering/Bathing - 5 - Not at all Limited B. Walking 1 block on level ground - 5 - Not at all Limited C. Hurrying or jogging - 5 - Not at all Limited 100x[(average of non-missing responses)-1]/4 2. Over the past 2 weeks, how many times did you have swelling in your feet, ankles or legs when you woke up in the morning? 5 - Never over the past 2 week 1 0 2 25 3 50 4 75 5 100 3. Over the past 2 weeks, on average, how many times has fatigue limited your ability to do what you wanted? 7 - Never over the past 2 weeks 1 0 2 16.667 3 33.333 4 50 5 66.667 6 83.333 7 100 4. Over the past 2 weeks, on average, how many times has shortness of breath limited your ability to do what you wanted? 7 - Never over the past 2 weeks 1 0 2 16.667 3 33.333 4 50 5 66.667 6 83.333 7 100 5. Over the past 2 weeks, on average, how many times have you been forced to sleep sitting up in a chair or with at least 3 pillows to prop you up because of shortness of breath? 5 - Never over the past 2 week 1 0 2 25 3 50 4 75 5 100 6. Over the past 2 weeks, how much has your heart failure limited your enjoyment of life? 5 - It has not limited my enjoyment of life at all 7. If you had to spend the rest of your life with heart failure the way it is right now, how would you feel about this? 5 - Completely satisfied 100x[(average of non-missing responses)-1]/4 8. How much does your heart failure affect your lifestyle? Please indicate how your heart failure may have limited your participation in the following activities over the past 2 weeks. A. Hobbies, recreational activities - 5 - Did not limit at all B. Working or doing rug layer - 5 - Did not limit at all C. Visiting family or friends out of your home - 5 - Did not limit at all 100x[(average of non-missing responses)-1]/4 KCCQ: 100 PL: 100 SF: 100 QL: 100 SL: 100 OLIVIA Mills E COMMERCE MARKETING MANAGER * Telephone Encounter - Kaylee Mccain APRN-CNP - 04/29/2021 11:31 AM E COMMERCE MARKETING MANAGER Patient goes to [place] office to see dr. Burdick and will need ECHO. Ordered and faxedto office attention: [facility]. They will call him to schedule. He obtained an ICD from a doctor in [place]. OLIVIA Mills E COMMERCE MARKETING MANAGER documented in this encounter Plan of Treatment Scheduled Orders Name Type Priority Associated Diagnoses Orde r Schedule ECHO COMPLETE Echocardiography Radiant Routine S/P TAVR (transcatheter aortic valve replacement) Expected: 04/29/2021, Expires: 04/29/2022 documented as of this encounter Visit Diagnoses Diagnosis S/P TAVR (transcatheter aortic valve replacement)- Primary documented in this encounter Care Teams Esthetician/Spa Coordinator Relationship Specialty Start Date End Date Floyd Mckin[place] MD [address] [place] [address] PCP - General Internal Medicine 04/29/20 documented as of this encounter
--- OUTSIDE RECORDS SUMMARY | 2024-05-22 02:13 | XMS_ITS | Encounter Summary ---
Author Organization [facility] Address [address] [facility] [place] [address] Care Team Providers Care Gun Barrel Finisher Name Role Phone Floyd Mckin[place] MD Primary Care Provider Encounter Details Date Type Department Care Team (Late st Contact Info) Description 08/05/2020 Orders Only [facility] [address] [facility] [address] [place] [address] Enrike Cronin MD [address] [place] [address] [id number] Ischemic cardiomyopathy Social History Tobacco Use Types Packs/Day Years [...] as of this encounter Visit Diagnoses Diagnosis Ischemic cardiomyopathy Other specified forms of chronic ischemic heart disease documented in this encounter Care Teams Gun Barrel Finisher Relationship Specialty Start Date End Date Floyd Mckinney MD [address] [place] [address] PCP - General Internal Medicine 04/29/20 documented as of this encounter
--- OUTSIDE RECORDS SUMMARY | 2024-05-22 02:13 | XMS_ITS | Encounter Summary ---
Author Organization [facility] Address [address] [place] [address] Care Team Providers Care Homicide Squad Sergeant Name Role Phone Floyd Mckinney MD Primary Care Provider + [phone] Reason for Visit * Reason Onset Date Comments Encounter Opened In Error 05/02/2020 Encounter Details Date Type Department Care Team (Late st Contact Info) Description 05/02/2020 Telephone [facility] [address] [facility] [address] [place] [address] Kaylee Mccain, COPY MANAGER-INTERNAL MEDICINE PHYSICIAN [address] [place] [address] Encounter Opened In Error Social History Tobacco [...] COVID-19? 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/2020 10:39 AM NETWORK DESIGN ARCHITECT documented as of this encounter Functional Status [...] Primary documented in this encounter Care Teams Homicide Squad Sergeant Relationship Specialty Start Date End Date Floyd Mckinney MD [address] [place] [address] PCP - General Internal Medicine 04/29/20 documented as of this encounter
--- OUTSIDE RECORDS SUMMARY | 2024-05-22 02:13 | XMS_ITS | Encounter Summary ---
Author Organization [facility] Address [address] [facility] [place] [address] Care Team Providers Care Tripe Washer Name Role Phone Floyd Mckinney MD Primary Care Provider [phone] Encounter Details Date Type Department Care Team (Late st Contact Info) Description 08/14/2020 Orders Only [facility] - COVID Vax [address] [place] [address] Ta Yen MD [address] [facility] [address] [place] [address] Need for vaccination Social History Tobacco Use Types Packs/Day Years [...] as of this encounter Visit Diagnoses Diagnosis Need for vaccination Need for prophylactic vaccination and inoculation against unspecified single disease documented in this encounter Care Teams Tripe Washer Relationship Specialty Start Date End Date Floyd Mckinney MD [address] [place] [address] PCP - General Internal Medicine 04/29/20 documented as of this encounter
--- OUTSIDE RECORDS SUMMARY | 2024-05-22 02:13 | XMS_ITS | Encounter Summary ---
Author Organization [facility] Health Address [address] [place] [address] Care Team Providers Care Car Sales Associate Name Role Phone Unavailable Primary Care Provider Unavailabl e Reason for Visit * Reason Onset Date Comments Results 04/28/2020 Encounter Details Date Type Department Care Team (Late st Contact Info) Description 04/28/2020 Telephone [facility] [address] [facility] [address] [place] [address] Kaylee Mccain, MARBLE HELPER-SENIOR LITIGATION PARALEGAL [address] [place] [address] Results Social History Tobacco Use Types Packs/Day [...] COVID-19? 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/2020 10:39 AM WORK COUNSELOR documented as of this encounter Functional Status [...] Telephone Encounter - Kaylee Mccain APRN-CNP - 04/28/2020 10:41 AM WORK COUNSELOR Called and informed patient of negative COVID test. Continue social isolating. Blood sugar: 135 this AM No symptoms of high or low bs. Advised to still discuss stopping sulfonylurea with PCP as they may want a1c in 3 months. Patient did take his metformin. Though it was on his list not to take, he accidentally took it. Provided reassurance. Patient will not take tomorrow and will continue to hold for48 hours after procedure. Reviewed all medications to take in the morning and plan for NPO at night. Nothing further at this time. Reviewed arrival time to hospital for procedure. OLIVIA Mills COUNSELOR documented in this encounter Plan of Treatment Not on file documented as of this encounter Visit Diagnoses Not on filedocumented in this encounter
--- OUTSIDE RECORDS SUMMARY | 2024-05-22 02:13 | XMS_ITS | Encounter Summary ---
Author Organization [facility] Address [address] [place] [address] Care Team Providers Care Developer Architect Name Role Phone Floyd Mckinney MD Primary Care Provider [phone] Encounter Details Date Type Department Care Team (Late st Contact Info) Description 06/24/2020 Orders Only [facility] [address] [facility] [address] [place] [address] Enrike Cronin MD [address] [place] [id number] Class 2 congestive heart failure, chronic, combined (HCC); NSTEMI (non-ST elevated myocardial infarction) (HCC); Ischemic cardiomyopathy; 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) Social History Tobacco Use Types Packs/Day [...] RADIANT documented in this encounter Visit Diagnoses Diagnosis Class 2 congestive heart failure, chronic, combined (HCC) NSTEMI (non-ST elevated myocardial infarction) (HCC) Acute myocardial infarction, subendocardial infarction, episode of care unspecified Ischemic cardiomyopathy Other specified forms of chronic ischemic heart disease 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) Acute on chronic combined systolic and diastolic heart failure documented in this encounter Care Teams Developer Architect Relationship Specialty Start Date End Date Floyd Mckinney MD [address] [place] [id number] PCP - General Internal Medicine 04/29/20 documented as of this encounter
--- OUTSIDE RECORDS SUMMARY | 2024-05-22 02:13 | XMS_ITS | Patient Health Summary ---
Author Organization [facility] Address [address] [place] [address] Care Team Providers Care Preparator Name Role Phone Floyd Mckinney MD Primary Care Provider [phone] [facility],non-owned Affiliates and Associated Physician Practices is amultiple site organization consisting of ambulatory clinics and hospital sitesin [place], [place], [place] and [place]. This disclosure is being madepursuant to the Care Everywhere program and may not contain all information available regarding this patient. Last updated 18.[facility] [employer] Allergies No known active allergies Medications * Be aware that medications may not be up to date on this document. Alwaysverify current medications with the patient. * tamsulosin (FLOMAX) 0.4 MG capsule Take 0.4 mg by mouth once daily At the same time every day after a meal. * metFORMIN CR 24hr modified (GLUMETZA) 1000 MG (MOD) tablet Take 1,000 mg by mouth 2 times daily * aspirin (ASPIRIN) 81 MG chew tablet(Started 03/19/2020) Take 1 tablet by mouth once daily 11 refills by 03/19/2021 * furosemide (LASIX) 20 MG tablet(Started 03/19/2020) Take 1 tablet by mouth once daily 3 refills by 03/19/2021 * clopidogrel (PLAVIX) 75 MG tablet(Started 03/19/2020) Take 1 tablet by mouth once daily 11 refills by 03/19/2021 * SHAKA CONTOUR NEXT TEST test strip(Started 04/12/2020) * metoprolol succinate XL 24hr (TOPROL XL) 25 MG tablet(Started 04/14/2020) Take 25 mg by mouth once daily * finasteride (PROSCAR) 5 MG tablet(Started 06/14/2020) Take 5 mg by mouth once daily * lisinopril (PRINIVIL;ZESTRIL) 5 MG tablet(Started 06/24/2020) Take 1 (one) tablet by mouth once daily 3 refills by 06/24/2021 * glimepiride (AMARYL) 2 MG tablet Take 2 mg by mouth daily with breakfast * pravastatin (PRAVACHOL) 40 MG tablet(Started 03/13/2021) Take 40 mg by mouth once daily * ENTRESTO 24-26 MG tablet(Started 02/27/2021) Take 1 tablet by mouth 2 times daily Active Problems Problem Noted Date Diagnosed Date 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 (FLUZONE HIGH-DOSE QUADRIVALENT; 65Y+), 0.7 ML (HD-IIV4)(Given 01/22/2020) Social History Tobacco Use Types Packs/Day Years [...] CDT Respiratory Rate 15 04/30/2020 8:00 AM LOCATE TECHNICIAN Oxygen Saturation 98% 08/05/2020 10:41 AM CDT Inhaled Oxygen Concentration - - Weight 86.2 kg (190 lb) 08/05/2020 10:41 AM CDT Height 180.3 cm (5' 11 ) 08/05/2020 10:41 AM CDT Body Mass Index 26.5 08/05/2020 10:41 AM CDT Medical Devices Implanted Type Area Asp Net Mvc Developer Device Identifier Shelf Expiration Date Model / Serial / Lot Valve Aor Evolut Pro+ 34mm - [id number] Implanted:Qty: 1 on 04/29/2020 at [facility] Heart Valve N/A: Aortic Valve [employer] Ave 05/29/2021 EVPROPLUS -34US / [id number] / Description:Implanted by: Mitul Dumont MD Sys Cor Stent Xience Srr 2.5mm 15mm Rap Implanted:Qty: 1 on 03/18/2020 by Oliver Biggs MD at [facility] Coronary [employer] 10/21/2020 [id number] Description:distal CIRC Sys Cor Stent Xience Srr 3.5mm 12mm Rap Implanted:Qty: 1 on 03/18/2020 by Oliver Biggs MD at [facility] [employer] 07/08/2021 [id number] Description:OM 2 Sys Cor Stent Xience Srr 2.25mm 12mm Rap Implanted:Qty: 1 on 03/18/2020 by Oliver Biggs MD at [facility] [employer] 10/15/2020 [id number] Description:OM 2 Procedures * CARDIAC EKG ORDER(Performed 08/10/2020) * ECHO COMPLETE(Performed 08/05/2020) Performed for Class 2 congestive heart failure, chronic, combined (HCC), NSTEMI (non-ST elevated myocardial infarction) ([facility]), Ischemic cardiomyopathy, 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) * PROC EKG IN CLINIC(Performed 08/05/2020) Performed for NSTEMI (non-ST elevated myocardial infarction) ([facility]) * CARDIAC EKG ORDER(Performed 06/24/2020) * EKG 12-LEAD(Performed 06/24/2020) * ECHO COMPLETE(Performed 06/18/2020) Performed for S/P TAVR (transcatheter aortic valve replacement) * CARDIAC PROCEDURE ORDER(Performed 05/02/2020) * CARDIAC EKG ORDER(Performed 05/02/2020) * PREPARE RBC LEUKOREDUCED UNIT(Performed 05/01/2020) Performed for Severe aortic stenosis * GLUCOSE - POINT OF CARE(Performed 04/30/2020) * EKG 12-LEAD(Performed 04/30/2020) Performed for 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), S/P TAVR (transcatheter aortic valve replacement), Type 2 diabetes mellitus with diabetic nephropathy, without long-term current use of insulin ([facility]), Moderate mitral insufficiency, Essential hypertension * ECHO COMPLETE(Performed 04/30/2020) Performed for 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), S/P TAVR (transcatheter aortic valve replacement), Type 2 diabetes mellitus with diabetic nephropathy, without long-term current use of insulin ([facility]), Moderate mitral insufficiency, Essential hypertension * GLUCOSE - POINT OF CARE(Performed 04/30/2020) * MAGNESIUM BLOOD(Performed 04/30/2020) Performed for S/P TAVR (transcatheter aortic valve replacement), Type 2 diabetes mellitus with diabetic nephropathy, without long-term current use of insulin ([facility]), Acute on chronic combined systolicand diastolic heart failure ([facility]) * CBC W AUTO DIFFERENTIAL(Performed 04/30/2020) Performed for Acute on chronic combined systolic and diastolic heart failure ([facility]), S/P TAVR (transcatheter aortic valve replacement), Type 2 diabetes mellitus with diabetic nephropathy, without long-term current use of insulin ([facility]) * BASIC METABOLIC PANEL (CALCIUM TOTAL)(Performed 04/30/2020) Performed for Acute on chronic combined systolic and diastolic heart failure ([facility]), S/P TAVR (transcatheter aortic valve replacement), Type 2 diabetes mellitus with diabetic nephropathy, without long-term current use of insulin ([facility]) * GLUCOSE - POINT OF CARE(Performed 04/29/2020) * COMPREHENSIVE METABOLIC PANEL(Performed 04/29/2020) * CBC W/O DIFFERENTIAL(Performed 04/29/2020) * GLUCOSE - POINT OF CARE(Performed 04/29/2020) * EKG 12-LEAD(Performed 04/29/2020) Performed for 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), S/P TAVR (transcatheter aortic valve replacement), Type 2 diabetes mellitus with diabetic nephropathy, without long-term current use of insulin (HCC), Moderate mitral insufficiency, Essential hypertension * ECHO MATT TRANSESOPHAGEAL(Performed 04/29/2020) Performed for Severe aortic stenosis, S/P TAVR (transcatheter aortic valve replacement) * ENDOTRACHEAL TUBE NOTE(Performed 04/29/2020) * ARTERIAL LINE NOTE(Performed 04/29/2020) * EKG 12-LEAD(Performed 04/29/2020) Performed for Severe aortic stenosis * ECHO LIMITED OR FOLLOWUP(Performed 04/29/2020) Performed for Severe aortic stenosis, Acute on chronic combined systolic and diastolic heart failure ([facility]) * GLUCOSE - POINT OF CARE(Performed 04/29/2020) * TYPE + SCREEN PANEL(Performed 04/29/2020) Performed for Severe aortic stenosis * SARS-COV-2 (COVID-19) IN HOUSE(Performed 04/25/2020) Performed for Pre-operative clearance, Class 2 congestive heart failure, chronic, combined (HCC), Aortic valve stenosis, etiology of cardiac valve disease unspecified * TYPE + SCREEN PANEL(Performed 04/25/2020) Performed for Preop examination * COMPREHENSIVE METABOLIC PANEL(Performed 04/25/2020) Performed for Pre-operative clearance, Class 2 congestive heart failure, chronic, combined (HCC), Aortic valve stenosis, etiology of cardiac valve disease unspecified * CBC W AUTO DIFFERENTIAL(Performed 04/25/2020) Performed for Pre-operative clearance, Class 2 congestive heart failure, chronic, combined (HCC), Aortic valve stenosis, etiology of cardiac valve disease unspecified * PT-INR SLH(Performed 04/25/2020) Performed for Pre-operative clearance, Class 2 congestive heart failure, chronic, combined (HCC), Aortic valve stenosis, etiology of cardiac valve disease unspecified * URINALYSIS W/MICROSCOPIC NO CULTURE(Performed 04/25/2020) Performed for Preop examination * VASCULAR LAB ORDER(Performed 03/21/2020) * CARDIAC PROCEDURE ORDER(Performed 03/21/2020) * CARDIAC EKG ORDER(Performed 03/21/2020) * GLUCOSE - POINT OF CARE(Performed 03/19/2020) * CT ANGIO TAVR CHEST ABD PEL(Performed 03/19/2020) Performed for Congestive heart failure, unspecified HF chronicity, unspecified heart failure type ([facility]), Aortic valve stenosis, etiology of cardiac valve disease unspecified * GLUCOSE - POINT OF CARE(Performed 03/19/2020) * GLUCOSE - POINT OF CARE(Performed 03/19/2020) * PHOSPHORUS BLOOD(Performed 03/19/2020) * MAGNESIUM BLOOD(Performed 03/19/2020) * CBC W/O DIFFERENTIAL(Performed 03/19/2020) * BASIC METABOLIC PANEL (CALCIUM TOTAL)(Performed 03/19/2020) * GLUCOSE - POINT OF CARE(Performed 03/18/2020) * GLUCOSE - POINT OF CARE(Performed 03/18/2020) * GLUCOSE - POINT OF CARE(Performed 03/18/2020) * CCL CARDIAC CATH LEFT(Performed 03/18/2020) Performed for NSTEMI (non-ST elevated myocardial infarction) ([facility]) * GLUCOSE - POINT OF CARE(Performed 03/18/2020) * GLUCOSE - POINT OF CARE(Performed 03/18/2020) * PHOSPHORUS BLOOD(Performed 03/18/2020) * MAGNESIUM BLOOD(Performed 03/18/2020) * CBC W/O DIFFERENTIAL(Performed 03/18/2020) * BASIC METABOLIC PANEL (CALCIUM TOTAL)(Performed 03/18/2020) * GLUCOSE - POINT OF CARE(Performed 03/17/2020) * GLUCOSE - POINT OF CARE(Performed 03/17/2020) * GLUCOSE - POINT OF CARE(Performed 03/17/2020) * ECHO COMPLETE(Performed 03/17/2020) Performed for Congestive heart failure, unspecified HF chronicity, unspecified heart failure type ([facility]) * VAS BILATERAL VENOUS MAPPING(Performed 03/17/2020) Performed for NSTEMI (non-ST elevated myocardial infarction) ([facility]) * VAS CAROTID DUPLEX BILATERAL(Performed 03/17/2020) Performed for NSTEMI (non-ST elevated myocardial infarction) ([facility]) * PHOSPHORUS BLOOD(Performed 03/17/2020) * MAGNESIUM BLOOD(Performed 03/17/2020) * BASIC METABOLIC PANEL (CALCIUM TOTAL)(Performed 03/17/2020) * CBC W/O DIFFERENTIAL(Performed 03/17/2020) * GLUCOSE - POINT OF CARE(Performed 03/16/2020) * GLUCOSE - POINT OF CARE(Performed 03/16/2020) * GLUCOSE - POINT OF CARE(Performed 03/16/2020) * TROPONIN I(Performed 03/16/2020) * GLUCOSE - POINT OF CARE(Performed 03/16/2020) * PTT SLH(Performed 03/16/2020) * PHOSPHORUS BLOOD(Performed 03/16/2020) * MAGNESIUM BLOOD(Performed 03/16/2020) * CBC W/O DIFFERENTIAL(Performed 03/16/2020) * BASIC METABOLIC PANEL (CALCIUM TOTAL)(Performed 03/16/2020) * PTT SLH(Performed 03/15/2020) * GLUCOSE - POINT OF CARE(Performed 03/15/2020) * GLUCOSE - POINT OF CARE(Performed 03/15/2020) * ABO TYPE: RETYPE-PATIENT RESULT ONLY(Performed 03/15/2020) * PTT SLH(Performed 03/15/2020) * URINALYSIS REFLEX TO MICROSCOPIC NO CULTURE(Performed 03/15/2020) * CULTURE URINE(Performed 03/15/2020) * TYPE + SCREEN PANEL(Performed 03/15/2020) * GLUCOSE - POINT OF CARE(Performed 03/15/2020) * TROPONIN I(Performed 03/15/2020) * XR PANOREX(Performed 03/15/2020) Performed for Congestive heart failure, unspecified HF chronicity, unspecified heart failure type (HCC) * GLUCOSE - POINT OF CARE(Performed 03/15/2020) * EKG 12-LEAD(Performed 03/15/2020) Performed for Congestive heart failure, unspecified HF chronicity, unspecified heart failure type (HCC) * PTT SLH(Performed 03/15/2020) Performed for Congestive heart failure, unspecified HF chronicity, unspecified heart failure type (HCC) * TRANSFERRIN(Performed 03/15/2020) * FERRITIN(Performed 03/15/2020) * IRON BLOOD(Performed 03/15/2020) * HEMOGLOBIN A1C(Performed 03/15/2020) * LIPID PROFILE(Performed 03/15/2020) * MAGNESIUM BLOOD(Performed 03/15/2020) * CBC W/O DIFFERENTIAL(Performed 03/15/2020) * BASIC METABOLIC PANEL (CALCIUM TOTAL)(Performed 03/15/2020) * EKG 12-LEAD(Performed 03/15/2020) Performed for Congestive heart failure, unspecified HF chronicity, unspecified heart failure type (HCC) * XR CHEST 1VW PORTABLE(Performed 03/14/2020) Performed for Congestive heart failure, unspecified HF chronicity, unspecified heart failure type (HCC) * TROPONIN I(Performed 03/14/2020) * PTT SLH(Performed 03/14/2020) * PT-INR SLH(Performed 03/14/2020) * CBC W AUTO DIFFERENTIAL(Performed 03/14/2020) * PHOSPHORUS BLOOD(Performed 03/14/2020) * MAGNESIUM BLOOD(Performed 03/14/2020) * LACTIC ACID BLOOD(Performed 03/14/2020) * B-TYPE NATRIURETIC PEPTIDE(Performed 03/14/2020) * COMPREHENSIVE METABOLIC PANEL(Performed 03/14/2020) * PT EVAL AND TREAT(Performed 03/14/2020) * OT EVAL AND TREAT(Performed 03/14/2020) Results * CARDIAC EKG ORDER (08/10/2020) Only the most recent of4 resultswithin the time period is included. Narrative 08/10/2020 Ordered by an unspecified provider. Scanned Document CARDIAC SERVICES ORD ERABLES * ECHO COMPLETE (08/05/2020 11:26 AM CDT) Only the most recent of4 resultswithin the time period is included. Anatomical Region Laterality Modality Chest Echo 08/05/2020 11:0 4 AM CDT Narrative Procedure Note Anjelica Hart MD - 08/06/2020 Enrike Cronin MD ECHOCARDIOGR APHY RADIANT * EKG - Clinic Performed (08/05/2020 10:46 AM CDT) Enrike Cronin MD ECG ORDERABL ES * EKG 12-LEAD (06/24/2020) Only the most recent of6 resultswithin the time period is included. Enrike Cronin MD ECG ORDERABL ES * CARDIAC PROCEDURE ORDER (05/02/2020 2:46 PM LOCATE TECHNICIAN) Only the most recent of2 resultswithin the time period is included. Narrative 05/02/2020 2:46 PM LOCATE TECHNICIAN Ordered by an unspecified provider. Scanned Document CARDIAC SERVICES ORD ERABLES * PREPARE (CROSSMATCH) RBC UNIT(S), 4 Units (05/01/2020 2:17 AM LOCATE TECHNICIAN) Unit Description AS1 LR PRBC [facility] Unit ABO A [facility] Unit Rh POS [facility] Product Number R02 [facility] B LOOD [facility]ANK LAB Unit Donor # [id number] [facility] Unit Status released [facility] BLOO D BANK LAB Product [facility] [id number] [facility] BLO OD BANK LAB Blood Type Barcode 6200 [facility] LAB Expiration Date S BLOOD BANK LAB Unit Description AS5 LR PRBC [facility] Unit ABO A [facility] Unit Rh POS [facility] Product Number R22 [facility] B LOOD [facility]ANK LAB Unit Donor # [id number] [facility] Unit Status released [facility] BLOO D [facility] Product [facility] [id number] [facility] BLO OD BANK LAB Blood Type [facility]arcode 6200 [facility]OD [facility] Expiration Date S BLOOD BANK LAB Unit Description AS1 LR PRBC [facility] BLOOD [facility] Unit ABO A [facility]OD [facility] Unit POS [facility] Product Number R02 [facility] B LOOD BANK LAB Unit Donor [facility] [id number] [facility] Unit Status released [facility] BLOO D [facility] Product [facility] [id number] [facility] BLO OD BANK LAB Blood Type Barcode 6200 [facility] Expiration Date [id number] [facility] BLOOD [facility] Unit Description AS1 LR PRBC [facility] B[facility] Unit ABO A [facility] Unit POS [facility] Product Number R02 [facility] B LOOD BANK LAB Unit Donor [facility] [id number] [facility]LOOD [facility] Unit Status released [facility] BLOO D BANK LAB Product [facility] [id number] [facility] BLO OD BANK LAB Blood Type Barcode 6200 [facility]OD [facility] LAB Expiration Date S BLOOD BANK LAB Blood Bank BLOOD SPECIMEN / Unknown 04/29/2020 8:35 AM LOCATE TECHNICIAN Kaylee Mccain EXTRUSION ENGINEER-MULTIPLE DRILL OPERATOR LAB - BLOOD BANK ORDERABLES [facility] B[facility] LAB [address] [place] [address], [facility] [phone] * (ABNORMAL) GLUCOSE - POINT OF CARE (04/30/2020 11:07 AM LOCATE TECHNICIAN) Only the most recent of24 resultswithin the time period is included. Glucose WB/POC 195(H) 70 - 115 mg/dL 04/30/2020 11:12 AM [facility] Specimen Type Arterial/C apillary 04/30/2020 11:12 AM [facility] Blood BLOOD SPECIMEN / Unknown 04/30/2020 11:07 AM LOCATE TECHNICIAN 04/30/2020 11:12 AM LOCATE TECHNICIAN Jay Stewart MD LAB - POINT OF CARE ORDERABLES [facility] [address] [place] [address], [facility] [phone] * (ABNORMAL) CBC W AUTO DIFFERENTIAL (04/30/2020 3:50 AM LOCATE TECHNICIAN) Only the most recent of3 resultswithin the time period is included. Pathologist [facility] WBC 7.1 3.5 - 10.5 10? 3 /uL 04/30/2020 4:21 AM [facility] RBC 3.38(L) 4.30 - 5.70 10? 6 /uL 04/30/2020 4:21 AM [facility] Hemoglobin 9.8(L) 13.5 - 17.5 g/dL 04/30/2020 4:21 AM [facility] Hematocrit 30.2(L) 39.0 - 50.0 % 04/30/2020 4:21 AM [facility] MCV 89.3 81.0 - 97.0 fL 04/30/2020 4:21 AM [facility] MCH 29.0 28.0 - 34.0 pg 04/30/2020 4:21 AM [facility] MCHC 32.5 32.0 - 36.0 g/dL 04/30/2020 4:21 AM [facility] Platelet Count 111(L) 150 - 400 10? 3 /uL 04/30/2020 4:21 AM [facility] RDW-SD 52.8(H) 36.0 - 50.0 fL 04/30/2020 4:21 AM [facility] RDW-CV 16.1(H) 11.2 - 14.8 % 04/30/2020 4:21 AM [facility] MPV 11.1 9.3 - 12.8 fL 04/30/2020 4:21 AM [facility] nRBC Absolute 0.00 0 10? 3 /uL 04/30/2020 4:21 AM [facility] nRBC Auto 0.0 0 /100 WBC 04/30/2020 4:21 AM [facility] Neutrophils % 73.9(H) 35.0 - 70.0 % 04/30/2020 4:21 AM [facility] Lymphocytes % 11.1(L) 19.7 - 55.1 % 04/30/2020 4:21 AM [facility] Monocytes % 12.5 3.0 - 15.0 % 04/30/2020 4:21 AM [facility] Eosinophils % 1.5 0.0 - 6.0 % 04/30/2020 4:21 AM [facility] Basophil % 0.4 0.0 - 1.5 % 04/30/2020 4:21 AM [facility] Neutrophils Absolute 5.3 1.6 - 7.0 10? 3 /uL 04/30/2020 4:21 AM [facility] Lymphocyte Absolute 0.8 0.8 - 2.9 10? 3 /uL 04/30/2020 4:21 AM [facility] Monocytes Absolute 0.89(H) 0.14 - 0.66 10? 3 /uL 04/30/2020 4:21 AM [facility] Eosinophils Absolute 0.11 0.00 - 0.45 10? 3 /uL 04/30/2020 4:21 AM [facility] Basophils Absolute 0.03 0.00 - 0.06 10? 3 /uL 04/30/2020 4:21 AM [facility] Immature Granulocytes % 0.6 0.0 - 1.0 % 04/30/2020 4:21 AM [facility] Blood BLOOD SPECIMEN / Unknown Venipuncture / Unknown 04/30/2020 3:50 AM LOCATE TECHNICIAN 04/30/2020 4:07 AM LOCATE TECHNICIAN Kaylee Mccain EXTRUSION ENGINEER-MULTIPLE DRILL OPERATOR LAB - HEMATOLOGY ORDERABLES [facility] [address] [place] [address], [facility] [phone] * (ABNORMAL) BASIC METABOLIC PANEL (CALCIUM TOTAL) (04/30/2020 3:50 AM LOCATE TECHNICIAN) Only the most recent of6 resultswithin the time period is included. BUN 14 7 - 26 mg/dL 04/30/2020 4:36 AM [facility] Creatinine 0.8 0.6 - 1.2 mg/dL 04/30/2020 4:36 AM [facility] Sodium 135(L) 136 - 145 mmol/L 04/30/2020 4:36 AM [facility] Potassium 4.1 3.5 - 4.5 mmol/L 04/30/2020 4:36 AM [facility] Chloride 102 98 - 107 mmol/L 04/30/2020 4:36 AM [facility] CO2 26 22 - 29 mmol/L 04/30/2020 4:36 AM [facility] Glucose 107 70 - 115 mg/dL 04/30/2020 4:36 AM [facility] Calcium 7.9(L) 8.4 - 10.2 mg/dL 04/30/2020 4:36 AM [facility] Anion Gap 11 8 - 18 04/30/2020 4:36 AM [facility] BUN/Creatinine Ratio 18 7 - 23 04/30/2020 4:36 AM [facility] Osmolality Calculated 281 270 - 300 mOsm/kg 04/30/2020 4:36 AM [facility] eGFR >60 >60 mL/min/1.7 3 m2 04/30/2020 4:36 AM [facility] Blood BLOOD SPECIMEN / Unknown Venipuncture / Unknown 04/30/2020 3:50 AM LOCATE TECHNICIAN 04/30/2020 4:07 AM [facility] Kaylee Mccain EXTRUSION ENGINEER-MULTIPLE DRILL OPERATOR LAB - CHEMISTRY ORDERABLES [facility] [address] [place] [address], [place] [phone] * MAGNESIUM BLOOD (04/30/2020 3:50 AM LOCATE TECHNICIAN) Only the most recent of7 resultswithin the time period is included. Magnesium 1.6 1.6 - 2.6 mg/dL 04/30/2020 4:36 AM [facility] Blood BLOOD SPECIMEN / Unknown Venipuncture / Unknown 04/30/2020 3:50 AM LOCATE TECHNICIAN 04/30/2020 4:07 AM LOCATE TECHNICIAN Kaylee Mccain EXTRUSION ENGINEER-MULTIPLE DRILL OPERATOR LAB - CHEMISTRY ORDERABLES [facility] [address] [place] [address], [facility] [phone] * (ABNORMAL) CBC W/O DIFFERENTIAL (04/29/2020 4:41 PM LOCATE TECHNICIAN) Only the most recent of6 resultswithin the time period is included. [facility] WBC 7.9 3.5 - 10.5 10? 3 /uL 04/29/2020 4:56 PM [facility] RBC 3.67(L) 4.30 - 5.70 10? 6 /uL 04/29/2020 4:56 PM [facility] Hemoglobin 10.4(L) 13.5 - 17.5 g/dL 04/29/2020 4:56 PM [facility] Hematocrit 32.9(L) 39.0 - 50.0 % 04/29/2020 4:56 PM [facility] MCV 89.6 81.0 - 97.0 fL 04/29/2020 4:56 PM [facility] MCH 28.3 28.0 - 34.0 pg 04/29/2020 4:56 PM [facility] MCHC 31.6(L) 32.0 - 36.0 g/dL 04/29/2020 4:56 PM [facility] Platelet Count 122(L) 150 - 400 10? 3 /uL 04/29/2020 4:56 PM [facility] [facility] RDW-SD 52.7(H) 36.0 - 50.0 fL 04/29/2020 4:56 PM [facility] RDW-CV 16.0(H) 11.2 - 14.8 % 04/29/2020 4:56 PM [facility] MPV 10.9 9.3 - 12.8 fL 04/29/2020 4:56 PM [facility] nRBC Absolute 0.00 0 10? 3 /uL 04/29/2020 4:56 PM [facility] nRBC Auto 0.0 0 /100 WBC 04/29/2020 4:56 PM [facility] Blood BLOOD SPECIMEN / Unknown Venipuncture / Unknown 04/29/2020 4:41 PM LOCATE TECHNICIAN 04/29/2020 4:50 PM LOCATE TECHNICIAN Joselito Clark MD LAB - HEMATOLOGY ORD ERABLES [facility] [address] [place] [address], [facility] [phone] * (ABNORMAL) COMPREHENSIVE METABOLIC PANEL (04/29/2020 4:41 PM LOCATE TECHNICIAN) Only the most recent of3 resultswithin the time period is included. BUN 17 7 - 26 mg/dL 04/29/2020 5:20 PM [facility] Creatinine 0.7 0.6 - 1.2 mg/dL 04/29/2020 5:20 PM [facility] Sodium 135(L) 136 - 145 mmol/L 04/29/2020 5:20 PM [facility] Potassium 4.7(H) 3.5 - 4.5 mmol/L 04/29/2020 5:20 PM [facility] Chloride 102 98 - 107 mmol/L 04/29/2020 5:20 PM [facility] CO2 24 22 - 29 mmol/L 04/29/2020 5:20 PM [facility] Glucose 145(H) 70 - 115 mg/dL 04/29/2020 5:20 PM [facility] Calcium 8.0(L) 8.4 - 10.2 mg/dL 04/29/2020 5:20 PM [facility] Protein Total 6.0 6.0 - 8.3 g/dL 04/29/2020 5:20 PM [facility] Albumin 3.2(L) 3.4 - 5.0 g/dL 04/29/2020 5:20 PM [facility] Bilirubin Total 1.4(H) 0.2 - 1.2 mg/dL 04/29/2020 5:20 PM [facility] Alkaline Phosphatase 59 40 - 150 Units/L 04/29/2020 5:20 PM [facility] ALT 9 0 - 55 Units/L 04/29/2020 5:20 PM [facility] AST 17 5 - 34 Units/L 04/29/2020 5:20 PM [facility] Anion Gap 14 8 - 18 04/29/2020 5:20 PM [facility] BUN/Creatinine Ratio 24(H) 7 - 23 04/29/2020 5:20 PM [facility] Osmolality Calculated 284 270 - 300 mOsm/kg 04/29/2020 5:20 PM [facility] Albumin/Globulin Ratio 1.1 1.1 - 2.3 04/29/2020 5:20 PM [facility] eGFR >60 >60 mL/min/1.7 3 m2 04/29/2020 5:20 PM [facility] Blood BLOOD SPECIMEN / Unknown Venipuncture / Unknown 04/29/2020 4:41 PM LOCATE TECHNICIAN 04/29/2020 4:50 PM LOCATE TECHNICIAN Joselito Clark MD LAB - CHEMISTRY ARMAND MORA [facility] [address] [place] [id number], [facility] [phone] * ECHO MATT TRANSESOPHAGEAL (04/29/2020 1:41 PM LOCATE TECHNICIAN) Anatomical Region Laterality Modality Chest X-Ray Angiograph y 04/29/2020 10:3 5 AM LOCATE TECHNICIAN Narrative Procedure Note Marisol Mcconnell MD - 04/30/2020 Kaylee Mccain EXTRUSION ENGINEER-MULTIPLE DRILL OPERATOR ECHOCARDIOGRAPHY RADIANT * ETT LINE PERFORMABLE (04/29/2020 10:56 AM LOCATE TECHNICIAN) Narrative Agapito Garcia - 04/29/2020 10:56 AM LOCATE TECHNICIAN Agapito Garcia, DO ? 04/29/2020 10:56 AM Endotracheal Tube Placement: ? Patient Location: OR. Intubation Event Date/Time: ??04/29/2020 10:33 AM Procedure: intubation (15746). Procedure Section: ?? Sedation: under general anesthesia. Indications for Airway Management: ??anesthesia Induction: standard IV Patient Position: ??sniffing and supine Mask Ventilation: easy and easy with oral airway. Blade Type: Wily Blade Size: 3 Laryngoscopy View: grade 1 (full cords) Intubation Adjuncts: cricoid pressure and stylet Tube: endotracheal tube Placement: oral Tube type: cuff - inflated Tube Size (MM): 8 Depth of Insertion (CM): 22 Measured From: lips Cuff Inflated With: air Number of Attempts: 1. Placement Verified By: direct visualization, bilateral breath sounds and CO2 detector Tube secured with: ??adhesive tape. Difficult Airway? ??No. Procedure Start Time: 04/29/2020 10:33 AM. Staff Section ?? Anesthesia Provider: Agapito Garcia DO, Performed the procedure Vel Newton MD GENERAL ANESTHESIA O MABLE * ARTERIAL LINE PERFORMABLE (04/29/2020 10:55 AM LOCATE TECHNICIAN) Narrative Agapito Garcia - 04/29/2020 10:55 AM LOCATE TECHNICIAN Agapito Garcia DO ? 04/29/2020 10:55 AM Arterial Line Placement Procedure Note Patient Location: OR. Procedure: Arterial Line ([id number]). Procedure Section ?? Indications: continuous blood pressure monitoring and blood sampling needed. Consent: informed consent was obtained for the procedure. Skin Prep: Chloraprep. Location: left radial. Sterile Technique: cap, mask and sterile gloves. Local Anesthetic Used? ??Yes ? Local Types: lidocaine (XYLOCAINE) 2 % injection, 1 mL. Gauge: 20. Seldinger Technique Used? ??Yes Number of Attempts: 2. Line Secured with: tape and Tegaderm. Procedure Tolerance: tolerated well. Events: none. Procedure Start Time: 04/29/2020 10:21 AM. Staff Section ?? Anesthesia Provider: Agapito Garcia DO, Performed the procedure Vel Newton MD GENERAL ANESTHESIA O MABLE * ECHO LIMITED OR FOLLOWUP (04/29/2020 8:58 AM LOCATE TECHNICIAN) Anatomical Region Laterality Modality Chest Echo 04/29/2020 8:27 AM LOCATE TECHNICIAN Narrative Procedure Note Andrea Gifford MD - 04/29/2020 Kaylee Mccain EXTRUSION ENGINEER-MULTIPLE DRILL OPERATOR ECHOCARDIOGRAPHY RADIANT * TYPE + SCREEN PANEL (04/29/2020 8:18 AM LOCATE TECHNICIAN) Only the most recent of3 resultswithin the time period is included. Antibody Screen NEG 0 9:12 AM LOCATE TECHNICIAN [facility] BLOOD B[facility] LAB ABO Rh A POS 04/29/2020 9:12 AM LOCATE TECHNICIAN [facility] BLOOD [facility] LAB Blood Bank BLOOD SPECIMEN / Unknown Venipuncture / Unknown 04/29/2020 8:18 AM LOCATE TECHNICIAN 04/29/2020 8:35 AM LOCATE TECHNICIAN Kaylee Mccain APRN-MULTIPLE DRILL OPERATOR LAB - BLOOD BANK ORDERABLES [facility] BLOOD [facility] LAB [address] [place] [address], [facility] [phone] * SARS-COV-2 (COVID-19) IN HOUSE (04/25/2020 2:21 PM LOCATE TECHNICIAN) Pathologist [facility] COVID-19 PCR Not detected Not detected 04/26/2020 7:26 PM LOCATE TECHNICIAN [facility] MICROBIOLOGY Microbiology SPECIMEN FROM NASOPHARYNGEAL STRUCTURE / Unknown Collection / Unknown 04/25/2020 2:21 PM LOCATE TECHNICIAN 04/25/2020 2:21 PM LOCATE TECHNICIAN Narrative [facility] MICROBIOLOGY - 04/26/2020 7:26 PM LOCATE TECHNICIAN This nucleic acid amplification assay performance was validated by [facility]biology [facility]. This test has [...] assay are available upon request. Kaylee Mccain APRN-MULTIPLE DRILL OPERATOR LAB - MICROBIOLO GY ORDERABLES Performing Organization Address City/[facility]/ZIP Co de Phone Number [facility] MICRO[facility] [address] [place] [address], [facility] [phone] * PT-INR [facility] (04/25/2020 11:32 AM LOCATE TECHNICIAN) Only the most recent of2 resultswithin the time period is included. PT 13.4 12.1 - 14.8 Seconds 04/25/2020 12:52 PM [facility] INR 1.1 See Comment 04/25/2020 12:52 PM [facility] Comment:The suggested therap eutic range for standard coumadin (warfarin) therapy is an INR of 2.0-3.0. For high-risk patients (Mechanical Mitral Valve Prosthesis, etc.), the suggested prophylactic therapeutic range is an INR of 2.5-3.5. Blood BLOOD SPECIMEN / Unknown Lab Venipuncture / Unknown 04/25/2020 11:32 AM LOCATE TECHNICIAN 04/25/2020 12:42 PM LOCATE TECHNICIAN Kaylee Mccain APRN-[facility] LAB - COAGULATIO N ORDERABLES Performing Organization Address City/[facility]/ZIP Co de Phone Number [facility] [address] [place] [address], [place] [phone] * (ABNORMAL) URINALYSIS W/MICROSCOPIC NO CULTURE (04/25/2020 11:32 AM LOCATE TECHNICIAN) Color UA Yellow Straw, Yellow, Colorless 04/25/2020 12:45 PM [facility] Clarity UA Clear Clear, Slt Cloudy 04/25/2020 12:45 PM [facility] Specific [place] UA 1.016 1.005 - 1.030 04/25/2020 12:45 PM [facility] pH UA 5.0 5.0 - 8.0 pH 04/25/2020 12:45 PM [facility] Protein UA Negative Negative mg/dL 04/25/2020 12:45 PM [facility] Glucose UA Negative Negative mg/dL 04/25/2020 12:45 PM [facility] Ketone UA Negative Negative mg/dL 04/25/2020 12:45 PM [facility] Bilirubin UA Negative Negative mg/dL 04/25/2020 12:45 PM [facility] Blood UA Negative Negative 04/25/2020 12:45 PM [facility] Nitrite UA Negative Negative 04/25/2020 12:45 PM [facility] Leukocyte Esterase Negative Negative 04/25/2020 12:45 PM [facility] Urobilinogen UA Negative Negative mg/dL 04/25/2020 12:45 PM [facility] RBC UA 6-10(A) None Seen, 0-2, 3-5 /HPF 04/25/2020 12:45 PM [facility] WBC UA 0-5 None Seen, 0-5 /HPF 04/25/2020 12:45 PM [facility] Squamous Epithelial Cells UA 0-2 None Seen, 0-2 /HPF 04/25/2020 12:45 PM [facility] Mucus UA 1+ None, 1+ /LPF 04/25/2020 12:45 PM [facility] Hyaline Casts UA 6-10(A) None Seen, 0-2 /LPF 04/25/2020 12:45 PM [facility] Urine URINE SPECIMEN OBTAINED BY CLEAN CATCH PROCEDURE / Unknown Collection / Unknown 04/25/2020 11:32 AM LOCATE TECHNICIAN 04/25/2020 12:26 PM LOCATE TECHNICIAN Narrative [facility] - 04/25/2020 12:45 PM LOCATE TECHNICIAN Kaylee Mccain EXTRUSION ENGINEER-MULTIPLE DRILL OPERATOR LAB - URINALYSIS ORDERABLES [facility] [address] [place] [phone], [facility] [phone] * VASCULAR LAB ORDER (03/21/2020 1:25 PM CDT) Anatomical Region Laterality Modality Other Narrative 03/21/2020 1:25 PM CDT Ordered by an unspecified provider. Scanned Document VASCULAR LAB ORDERAB LES * CT ANGIO TAVR CHEST ABD PEL (03/19/2020 1:26 PM CDT) Anatomical Region Laterality Modality Chest, Abdomen, Pelvis Computed Tomography 03/19/2020 2:40 PM CDT Impressions 03/20/2020 11:47 AM CDT IMPRESSION: 1. Vascular measurements as above. Dictated by Ela Huggins DO (radiology rn). Also reviewed by Dr. Medina and Dr. Stratton. This report was approved ??by Ela Huggins ?? on 03/20/2020 11:38 AM . I, Dr. Rodolfo GERMAIN M.D. have personally reviewed and interpreted this examination/study. This report was electronically signed by Rodolfo GERMAIN M.D. ??on 03/20/2020 11:47 AM . Narrative 03/20/2020 11:47 AM CDT EXAMINATION: Computed tomography (CT) of the chest, abdomen, and pelvis with contrast DATE: 03/19/2020 HISTORY: 79-year-old male with aortic stenosis TECHNIQUE: CT angiography of the chest, abdomen, and pelvis was performed following the uneventful administration of 100 mL of Isovue-370 intravenous contrast according to a transcatheter aortic valve replacement (TAVR) protocol. MIP and 3D volume rendered images were obtained and processed on a separate workstation and sent to PACs for review. COMPARISON: None. FINDINGS: Vascular: The ascending aorta measures 2.71 cm at the annulus, 4.0 cm at the sinus of Valsalva, 2.65 cm at the sinotubular junction, and 3.2 cm TV x 3.2 cm AP at the level of the main pulmonary artery. The abdominal aorta measures 1.4 cm just superior to the bifurcation. The right common iliac artery measures 8.0 mm. The right external iliac artery measures 10.0 mm. The right femoral artery measures 7.8 mm at the level of the femoral head. The left common iliac artery measures 11.3 mm The left external iliac artery measures ?? 9.3 ??mm. The left femoral artery measures 10.3 mm at the level of the femoral head. The descending thoracic aorta and abdominal aorta are normal in course and caliber. A three-vessel aortic arch is present. Mild atherosclerotic calcifications are seen in the aorta. The aortic valve is calcified. The main pulmonary artery is normal in course and caliber. The coronary arteries are atherosclerotic. The branches of the abdominal aorta are patent and well opacified. The left common and external iliac arteries are slightly more tortuous compared to the right. Chest: The lungs are clear of focal consolidation. There is bibasilar atelectasis. Mild subpleural reticulations are present in the right upper lobe anteriorly, likely scarring. No pleural effusion or focal pleural thickening is identified. There is no evidence of pneumothorax. No suspicious pulmonary nodule is identified. There are 2 calcified granulomas within the right lower lobe. The trachea is patent and midline. The heart size is normal. No pericardial effusion is present. No mediastinal, hilar, supraclavicular, or axillary lymphadenopathy is seen. There are calcified right perihilar and paratracheal lymph nodes, likely sequela of prior granulomatous disease. The thyroid gland enhances homogenously. Abdomen/pelvis: The liver enhances homogenously. The gallbladder is surgically absent. The intrahepatic and extrahepatic bile ducts are nondilated. Multiple calcified granulomas are noted in the spleen. The pancreas and adrenal glands are normal. The kidneys enhance symmetrically. There is no evidence of renal calculus or hydronephrosis. The esophagus and stomach appear normal. The small bowel and colon are normal in caliber without evidence of wall thickening or obstruction. The appendix appears normal without appendicolith or surrounding inflammatory changes. No free air or free fluid is identified within the abdomen. There is no abdominal lymphadenopathy. The urinary bladder is distended with fluid and opacified with contrast and appears normal. The prostate is partially calcified. No free fluid is seen within the pelvis. There is no pelvic lymphadenopathy. Bone windows demonstrate no suspicious lytic or blastic lesions. The visible osseous structures are intact. Multilevel degenerative changes are seen in the spine. Procedure Note Fanta Germain MD - 03/20/2020 EXAMINATION: Computed tomography (CT) of the chest, abdomen, and pelvis with contrast DATE: 03/19/2020 HISTORY: 79-year-old male with aortic stenosis TECHNIQUE: CT angiography of the chest, abdomen, and pelvis wasperformed following the uneventful administration of 100 mL of Isovue-370 intravenous contrast according to a transcatheter aortic valvereplacement (TAVR) protocol. MIP and 3D volume rendered images were obtained and processed on a separate workstation and sent to PACs for review. COMPARISON: None. FINDINGS: Vascular: The ascending aorta measures 2.71 cm at the annulus, 4.0 cm at the sinus of Valsalva, 2.65 cm at the sinotubular junction, and 3.2 cm TV x 3.2 cm AP at the level of the main pulmonary artery. The abdominal aorta measures 1.4 cm just superior to the bifurcation. The right common iliac artery measures 8.0 mm. The right external iliac artery measures 10.0 mm. The right femoral artery measures 7.8 mm at the level of the femoralhead. The left common iliac artery measures 11.3 mm The left external iliac artery measures 9.3 mm. The left femoral artery measures 10.3 mm at the level of the femoralhead. The descending thoracic aorta and abdominal aorta are normal in courseand caliber. A three-vessel aortic arch is present. Mild atherosclerotic calcifications are seen in the aorta. The aortic valve is calcified. The main pulmonary artery is normal in course and caliber. The coronary arteries are atherosclerotic. The branches of the abdominal aorta are patent and well opacified. The left common and external iliac arteriesare slightly more tortuous compared to the right. Chest: The lungs are clear of focal consolidation. There is bibasilar atelectasis. Mild subpleural reticulations are present in the rightupper lobe anteriorly, likely scarring. No pleural effusion or focal pleural thickening is identified. There is no evidence of pneumothorax. No suspicious pulmonary nodule is identified. There are 2 calcified granulomas within the right lower lobe. The trachea is patent andmidline. The heart size is normal. No pericardial effusion is present. No mediastinal, hilar, supraclavicular, or axillary lymphadenopathy isseen. There are calcified right perihilar and paratracheal lymph nodes, likely sequela of prior granulomatous disease. The thyroid gland enhances homogenously. Abdomen/pelvis: The liver enhances homogenously. The gallbladder is surgically absent.The intrahepatic and extrahepatic bile ducts are nondilated. Multiple calcified granulomas are noted in the spleen. The pancreas and adrenal glands are normal. The kidneys enhance symmetrically. There is noevidence of renal calculus or hydronephrosis. The esophagus and stomach appear normal. The small bowel and colon are normal in caliber without evidence of wall thickening or obstruction.The appendix appears normal without appendicolith or surroundinginflammatory changes. No free air or free fluid is identified within the abdomen.There is no abdominal lymphadenopathy. The urinary bladder is distended with fluid and opacified with contrast and appears normal. The prostate is partially calcified. No free fluidis seen within the pelvis. There is no pelvic lymphadenopathy. Bone windows demonstrate no suspicious lytic or blastic lesions. The visible osseous structures are intact. Multilevel degenerative changesare seen in the spine. IMPRESSION: 1. Vascular measurements as above. Dictated by Ela Huggins DO (radiology rn). Also reviewed by Dr. Medina and Dr. Stratton. This report was approved by Ela Huggins on 03/20/2020 11:38 AM . I, Dr. Rodolfo GERMAIN M.D. have personally reviewed and interpretedthis examination/study. This report was electronically signed by Rodolfo GERMAIN M.D. on 03/20/2020 11:47 AM . Galindo Reyes MD CT ORDERABLES * PHOSPHORUS BLOOD (03/19/2020 6:10 AM CDT) Only the most recent of5 resultswithin the time period is included. Phosphorus 3.9 2.3 - 4.7 mg/dL 03/19/2020 6:46 AM CDT [facility] Blood BLOOD SPECIMEN / Unknown Lab Venipuncture / Unknown 03/19/2020 6:10 AM CDT 03/19/2020 6:18 AM CDT Galindo Reyes MD LAB - CHEMISTRY O RDERABLES [address] [address], [facility] [phone] * CCL CARDIAC CATH LEFT (03/18/2020 2:56 PM CDT) Anatomical Region Laterality Modality Chest X-Ray Angiograph y Narrative 03/20/2020 11:19 PM CDT [facility] Cardiac Catheterization Procedure Note Patient: Padmini Amador Age: [age] year old Date of : 1940 Date of Admission: 06/16/2019 Procedure Date: 03/18/20 FELLOW / INOCULATOR: Anup Steele M.D ATTENDING PHYSICIAN: Dr. Oliver Quispe. PREVIOUS STRESS STUDIES WITHIN 6 MONTHS: ??None DIAGNOSTIC APPROPRIATENESS CRITERIA: Indication 20/Score 7 A HISTORY: Patient is a 79 year old gentleman with PMH of Hypertension, HLD, DM2 coming in from an outside hospital where he had presented with an NSTEMI and was found to have triple vessel disease. He also has moderate . He is here for a C and PCI. ACCESS SITE(S): ?? right radial artery PROCEDURAL OVERVIEW: After obtaining informed consent and positioning the patient on the catheterization table, a timeout was performed to confirm the patient? s name, date of , and procedure. ??Sedation was initiated and the patient was prepped and draped using standard sterile technique. ?? Lidocaine was used for local anesthesia over the access site, after which the vessel was accessed and a sheath was placed using the modified Seldinger technique. ??Access was uncomplicated. Intra-arterial verapamil and intravenous heparin were administered to minimize risk of radial artery spasm or occlusion. Coronary angiography was performed using 6 Fr TIG 4 and FR 4 catheter(s). ??Intervention was performed as described in PCI report. At the conclusion of the procedure, hemostasis was achieved using a radial compression device after removal of all catheters, wires, and sheaths. ?? SEDATION: Moderate sedation on this adult patient was ordered by Dr. Brittaney Martines, administered intravenously in their presence, and monitored by the procedure nurse as an independent trained observer who was present throughout the procedure. The following parameters were monitored: oxygen saturation, heart rate, blood pressure, and response to care. Intra-service sedation start time was 12: 50 PM ??and end time was 2:33 pm during which the attending was present. Total physician intra-service sedation time was 107 minutes. For details on pre-moderate sedation and post-moderate sedation patient evaluation, please review the evaluation forms in [facility]. For details on monitored clinical parameters during the intra-service sedation time, please review the procedure nurse documentation in [facility]. Total sedation administered as follows: ??50 mcg IV fentanyl, 0 mg IV midazolam, and 0 mg IV benadryl. 2 ml of 1% lidocaine was administered subcutaneously at the access site. TOTAL CONTRAST USED (Isovue 370): 200 ml TOTAL BLOOD LOSS: 10 ml COMPLICATIONS: ??None HEMODYNAMIC FINDINGS: ?? 130/70/87 mmHg: Ao AK: 1332 ??mGy DAP: 10,4000 cGycm2 Fluoro time: 29.8 ??min ANGIOGRAPHY: ?i. ?Left main: Bifurcates into LAD and Circumflex. Mild luminal irregularities Noted. ??ii. ?? LAD: Proximal LAD has mild diffuse 10-20% stenosis. Mid LAD has diffuse Moderate 30-40% disease. Apical LAD has ACOUSTICAL ENGINEER. ??iii. ?? LCx: Dominant vessel. Proximal and mid mild luminal irregularities. Distal Circumflex has a focal 80% stenotic segment. It then gives of LPDA that has severe 70% diffuse disease. Gives off OM1 and a large bifurcating OM2 branches. OM2 has proximal calcified severe 70% focal stenotic lesion. It then gives off superior and inferior branches. Superior branch has a focal 90% stenotic segment. ??iv. ?? RCA: Non dominant vessel. Has mild luminal irregularities throughout. ?? DOMINANCE: Left DIAGNOSTIC INTERPRETATIONS: 1. 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 RECOMMENDATIONS AFTER DIAGNOSTIC CATHETERIZATION: ?? Proceed with PCI of LCx/OM2 Anup Seth Hawkins MD 03/19/2020 APPROPRIATENESS CRITERIA FOR PCI: iNDICATION 20, Score 7 A PCI INDICATION: NSTEMI Primary PCI of the Infarct Artery-Class: I PCI STATUS: elective PCI PROCEDURAL MODIFIERS: none LESION UNDERGOING INTERVENTION : PCI TO THE LCX/OM2. 1. LESION MODIFIERS: lesion complexity class C 2. RESTENOSIS?:no 3. ACCESS: The existing sheath was used for the PCI procedure. 4. GUIDE: ??6 fr XB 3.5 guide catheter was used for intervention. 5. ORAL ANTIPLATELET THERAPY: Aspirin and clopidogrel 6. INTRAVENOUS ANTICOAGULATION DURING PCI: Heparin 7. INTERVENTIONAL WIRE: A CatchFree wire was advanced beyond the lesion into the distal ??vessel. 8. PROCEDURE DETAILS:Balloon angioplasty was performed using a 2.0 x 12 mm NC Emerge MR balloon @ 16 ERNESTO/16 Seconds and @10 atms/10 seconds. After angioplasty, a Xience drug-eluting 2.5 x 15 mm ??stent was deployed across the lesion @16 atms/35 seconds. 9. After intervention, the 80% stenosis was reduced to 0% with KERA-iii ?? flow prior to PCI and KERA-iii flow after PCI. LESION UNDERGOING INTERVENTION : PCI TO THE OM2. 1. LESION MODIFIERS: lesion complexity class C 2. RESTENOSIS?:no 3. ACCESS: The existing sheath was used for the PCI procedure. 4. GUIDE: ??6 Fr XB 3.5 guide catheter was used for intervention. 5. ORAL ANTIPLATELET THERAPY: Aspirin and clopidogrel 6. INTRAVENOUS ANTICOAGULATION DURING PCI: Heparin 7. INTERVENTIONAL WIRE: A BMW wire was advanced beyond the lesion into the distal ??Vessel. Initially, we attempted to pass a 2.0 x 12 NC Emerge MR and 2.0 X 20 NC Emerge MR and A 1.2 X 20 Emerge MR Balloons into the superior branch of OM2 unsuccessfully. Then we decided to stent the proximal OM2 Fist. 8. PROCEDURE DETAILS:Balloon angioplasty was performed using a 2.0 x 12 mm NC Emerge MR balloon @ 14 ATMS/35 seconds. Then a 3.0 x 12 mm Emerge MR balloon was inflated @16 atms/10 seconds . After angioplasty, a Xience Karla drug-eluting 3.5 x 12 mm ??stent was deployed across the lesion. Then a 6 Fr guidezilla was advanced into the OM2 branch through the proximal OM 2 stent using serial inflation of a 2.0 x 12 mm NC Emerge MR balloon. The a 1.2 x 15 mm Emerge MR balloon was advanced beyond the lesion into the superior branch of OM2 and inflated 2 18 atms/10 seconds. This was then exchanged for a 2.0 x 20 mm Emerge MR Balloon inflated @ 8 atms/8 seconds. Then a 2.25 x 12 Xience Karla Drug Eluting Stent was deployed @ 18 ernesto/14 seconds. 9. After intervention, the 90% stenosis was reduced to 0% with KERA-ii flow prior to PCI and KERA-iii flow after PCI. COMPLICATIONS: none HEMOSTASIS: At the conclusion of the procedure, hemostasis was achieved using a radial compression device after removal of all catheters, wires, and sheaths. INTERVENTIONAL CONCLUSIONS: 1. Successful implantation of 2.5 x 15 mm Xience Karla Drug Eluting Stent in the distal circumflex. 2. Successful implantation of 3.5 x 12 mm Xience Karla Drug Eluting Stent in proximal OM2 branch. 3. Successful implantation of 2.25 X 12 Xience Karla Drug Eluting stent in the superior branch of OM2. RECOMMENDATIONS AFTER INTERVENTIONAL PROCEDURE: Aspirin 81 mg QDAY indefinitely. Clopidogrel 75 mg QDAY ??for 12 months minimum given drug eluting stent placement. Aggressive modification of atherosclerotic risk factors. Right radial TR band to be removed in 2 hours. Patient had moderate and his symptoms were likely related to CAD, discussed case with referring physician who will follow up with repeat TTE after revascularization. ?? Anup Seth Hawkins MD 03/19/2020 I was present for the entirety of the described procedure. Oliver Biggs MD Oliver Biggs MD CARDIAC RAMP MANAGER RA DIANT * VAS BILATERAL VENOUS MAPPING (03/17/2020 9:12 AM CDT) Anatomical Region Laterality Modality Upper Extremity, Lower Extremity Intravascular Ultrasound 03/17/2020 8:25 AM CDT Narrative Procedure Note Brigitte Schmitz MD - 03/18/2020 Galindo Reyes MD [facility] * VAS CAROTID DUPLEX BILATERAL (03/17/2020 9:12 AM CDT) Anatomical Region Laterality Modality Neck Intravascular Ul trasound 03/17/2020 8:07 AM CDT Narrative Procedure Note Brigitte Schmitz MD - 03/18/2020 Galindo Reyes MD [facility] * (ABNORMAL) TROPONIN I (03/16/2020 9:33 AM CDT) Only the most recent of3 resultswithin the time period is included. Troponin I 0.644(HH) <0.032 ng/mL 03/16/2020 10:16 AM CDT [facility] Comment:Critical value previ ously called. Blood BLOOD SPECIMEN / Unknown Lab Venipuncture / Unknown 03/16/2020 9:33 AM CDT 03/16/2020 9:40 AM CDT Lenka Ivory PA-C LAB - CHEMISTRY [facility] Performing Organization Address City/[facility]/ZIP Co de Phone Number [address] [address], [place] [phone] * (ABNORMAL) PTT [facility] (03/16/2020 5:30 AM CDT) Only the most recent of5 resultswithin the time period is included. APTT 89.0(H) 23.0 - 38.4 Seconds 03/16/2020 6:21 AM CDT [facility] Comment:Suggested therapeuti c range for full dose I.V. unfractionated heparin therapy for venous thromboembolism is 71 to 109 seconds. Blood BLOOD SPECIMEN / Unknown Lab Venipuncture / Unknown 03/16/2020 5:30 AM CDT 03/16/2020 5:41 AM CDT Jay Stewart MD LAB - COAGULATION OR DERABLES Performing Organization Address City/[facility]/ZIP Co de Phone Number [address] [address], [place] [phone] * RETYPE PATIENT (03/15/2020 4:24 PM CDT) ABO 03/15/2020 6:01 PM CDT [facility] Rh Type 03/15/2020 6:01 PM CDT [facility] Typem 03/15/2020 6:01 PM CDT [facility] Interpretation 03/15/2020 6:01 PM CDT [facility] Blood BLOOD SPECIMEN / Unknown Venipuncture / Unknown 03/15/2020 4:24 PM CDT 03/15/2020 4:36 PM CDT Narrative [facility] - 03/15/2020 6:01 PM CDT Re-type confirmed per [facility] Blood Bank policies & procedures. Results documented in department. Provider Unknown LAB - BLOOD BANK ORD ERABLES [facility] LAB [address] [place] [address], [facility] [phone] * (ABNORMAL) URINALYSIS REFLEX TO MICROSCOPIC NO CULTURE (03/15/2020 3:53 PM CDT) Color UA Yellow Straw, Yellow, Colorless 03/15/2020 4:27 PM [facility] Clarity UA Clear Clear, t Cloudy 03/15/2020 4:27 PM [facility] Specific [place] UA 1.011 1.005 - 1.030 03/15/2020 4:27 PM [facility] pH UA 6.0 5.0 - 8.0 pH 03/15/2020 4:27 PM [facility] Protein UA Negative Negative mg/dL 03/15/2020 4:27 PM [facility] Glucose UA Negative Negative mg/dL 03/15/2020 4:27 PM [facility] Ketone UA Negative Negative mg/dL 03/15/2020 4:27 PM [facility] Bilirubin UA Negative Negative mg/dL 03/15/2020 4:27 PM [facility] Blood UA Negative Negative 03/15/2020 4:27 PM [facility] Nitrite UA Negative Negative 03/15/2020 4:27 PM [facility] Leukocyte Esterase Negative Negative 03/15/2020 4:27 PM [facility] Urobilinogen UA Negative Negative mg/dL 03/15/2020 4:27 PM [facility] RBC UA 0-2 None Seen, 0-2, 3-5 /HPF 03/15/2020 4:27 PM [facility] WBC UA 0-5 None Seen, 0-5 /HPF 03/15/2020 4:27 PM [facility] Squamous Epithelial Cells UA None Seen None Seen, 0-2 /HPF 03/15/2020 4:27 PM [facility] Mucus UA 1+ None, 1+ /LPF 03/15/2020 4:27 PM [facility] Hyaline Casts UA 3-5(A) None Seen, 0-2 /LPF 03/15/2020 4:27 PM CDT [facility] Urine URINE SPECIMEN OBTAINED BY CLEAN CATCH PROCEDURE / Unknown Collection / Unknown 03/15/2020 3:53 PM CDT 03/15/2020 4:27 PM CDT Narrative [facility] - 03/15/2020 4:27 PM CDT Galindo Reyes MD LAB - URINALYSIS ORDERABLES Performing Organization Address City/[facility]/ZIP Co de Phone Number [facility] [address] [place] [address], [facility] [phone] * CULTURE URINE (03/15/2020 3:53 PM CDT) Culture Urine No growth (<100 CFU/mL) AMBER 03/17/2020 7:26 AM CDT [facility] Urine URINE SPECIMEN OBTAINED BY CLEAN CATCH PROCEDURE / Unknown Collection / Unknown 03/15/2020 3:53 PM CDT 03/15/2020 4:11 PM CDT Galindo Reyes MD LAB - MICROBIOLOG Y ORDERABLES Performing Organization Address City/[facility]/ZIP Co de Phone Number [facility] [address] [place] [address], [facility] [phone] * XR PANOREX (03/15/2020 9:33 AM CDT) Anatomical Region Laterality Modality Head Radiographic Melba ging 03/15/2020 11:5 1 AM CDT Impressions 03/16/2020 11:15 AM CDT FINDINGS/IMPRESSION: All teeth are missing. There are dental implants in the mandible. There is no periodontal disease or periapical abscess. The mandible and temporomandibular joints are intact. Dictated by Cody Espana MD (radiology rn). I, Dr. BRIGITTE HAMILTON have personally reviewed and interpreted this examination/study. This report was electronically signed by BRIGITTE HAMILTON ??on 03/16/2020 11:15 AM . Narrative 03/16/2020 11:15 AM CDT EXAMINATION: Panorex HISTORY: I50.9: Congestive heart failure, unspecified HF chronicity, unspecified heart failure type COMPARISON: No prior study is available for comparison. Procedure Note Brigitte Hamilton DO - 03/16/2020 EXAMINATION: Panorex HISTORY: I50.9: Congestive heart failure, unspecified HF chronicity, unspecified heart failure type COMPARISON: No prior study is available for comparison. FINDINGS/IMPRESSION: All teeth are missing. There are dental implants in the mandible. Thereis no periodontal disease or periapical abscess. The mandible and temporomandibular joints are intact. Dictated by Cody Espana MD (radiology rn). I, Dr. BRIGITTE HAMILTON have personally reviewed and interpreted this examination/study. This report was electronically signed by BRIGITTE HAMILTON on 03/16/2020 11:15 AM . Keena Cook MD DIAGNOSTIC IMAGING O RDERABLES * TRANSFERRIN (03/15/2020 6:30 AM CDT) Transferrin 238 174 - 382 mg/dL 03/15/2020 7:49 AM CDT [facility] Transferrin Saturation % 30 16 - 50 % 03/15/2020 7:49 AM CDT [facility] Blood BLOOD SPECIMEN / Unknown Lab Venipuncture / Unknown 03/15/2020 6:30 AM CDT 03/15/2020 7:16 AM CDT Keena Cook MD LAB - CHEMISTRY [facility] Organization Address City/State/[facility] Co de Phone Number [facility] [address] [place] [address], [facility] [phone] * (ABNORMAL) HEMOGLOBIN A1C (03/15/2020 6:30 AM CDT) Hemoglobin A1c 6.5(H) 4.4 - 6.3 % 03/15/2020 1:19 PM CDT [facility] Estimated Average Glucose 140 mg/dL 03/15/2020 1:19 PM CDT [facility] Comment: HbA1c Interpretation: Treatment target values recommended by ADA and other clinical organizations should be used to evaluate metabolic control in patients. Treatment Target Values: Normal : < 5.7% Pre-diabetes: 5.7-6.4% Diabetes: Equal to or greater than 6.5% Reference: [place] Diabetes Association Standards of Care in Diabetes -2014 In patients 70 years and older consider HbA1c target range of 7.0-7.5% Reference: ??Diabetes Mellitus in Older People: Position Statement on behalf of the International Association of Gerontology and Geriatrics (IAGG), the Diabetes Working Democrat for Older People (EDWPOP), and the International Task Force of Experts in Diabetes. ??Nathan Quiñones et al. J [employer] Medical Directors Association. 2012 Test results diagnostic of diabetes should be repeated for confirmation. The Sebia Capillary 2 assay for the measurement of HbA1c is a National Glycohemoglobin Standardization Program (NGSP)certified method. Blood BLOOD SPECIMEN / Unknown Lab Venipuncture / Unknown 03/15/2020 6:30 AM CDT 03/15/2020 6:50 AM CDT Keena Cook MD LAB - CHEMISTRY [facility] [address] [address], [facility] [phone] * IRON BLOOD (03/15/2020 6:30 AM CDT) Iron 90 50 - 175 mcg/dL 03/15/2020 7:49 AM CDT [facility] Blood BLOOD SPECIMEN / Unknown Lab Venipuncture / Unknown 03/15/2020 6:30 AM CDT 03/15/2020 7:16 AM CDT Keena Cook MD LAB - CHEMISTRY [facility] [address] [address], [place] [phone] * FERRITIN (03/15/2020 6:30 AM CDT) Ferritin 225 22 - 275 ng/mL 03/15/2020 8:07 AM CDT [facility] Blood BLOOD SPECIMEN / Unknown Lab Venipuncture / Unknown 03/15/2020 6:30 AM CDT 03/15/2020 7:16 AM CDT Keena Cook MD LAB - CHEMISTRY [facility] [address] [place] [address], [place] [phone] * (ABNORMAL) LIPID PROFILE (03/15/2020 6:30 AM CDT) Cholesterol Total 115 <200 mg/dL 03/15/2020 7:37 AM T [facility] HDL 35(L) >40 mg/dL 03/15/2020 7:37 AM [facility] Comment: ATP III Classification of HDL Cholesterol: ? <40 mg/dL: ??Considered a major risk factor. ? >60 mg/dL: ??Considered a negative risk factor. ? LDL Calculated 65 <100 mg/dL 03/15/2020 7:37 AM [facility] Comment: ATP III Classification of LDL Cholesterol: ?<100 mg/dL: ??Optimal ? 100 - 129 mg/dL: ??Near Optimal/Above Optimal ? 130 - 159 mg/dL: ??Borderline High ? 160 - 189 mg/dL: ??High ?>190 mg/dL: ??Very High ? Triglycerides 75 <150 mg/dL 03/15/2020 7:37 AM [facility] Comment: ATP III Classification of Triglycerides: ?<150 mg/dL: ??Normal ? 150 - 199 mg/dL: ??Borderline High ? 200 - 400 mg/dL: ??High ?>500 mg/dL: ??Very High Blood BLOOD SPECIMEN / Unknown Lab Venipuncture / Unknown 03/15/2020 6:30 AM CDT 03/15/2020 6:52 AM CDT Keena Cook MD LAB - CHEMISTRY [facility] [address] [place] [address], [facility] [phone] * XR CHEST 1VW PORTABLE (03/14/2020 11:55 PM CDT) Anatomical Region Laterality Modality Chest Radiographic Melba ging 03/15/2020 10:3 4 AM CDT Impressions 03/16/2020 12:01 PM CDT FINDINGS/IMPRESSION: No prior study is available for comparison at the time of this dictation. The lungs are clear. There is no focal consolidation, pleural effusion, or pneumothorax. The cardiomediastinal silhouette is normal. The visible bony thorax is intact. Dictated by Scottie Madison MD (radiology rn). IDr. BRIGITTE have personally reviewed and interpreted this examination/study. This report was electronically signed by BRIGITTE HAMILTON ??on 03/16/2020 12:01 PM . Narrative 03/16/2020 12:01 PM CDT EXAMINATION: XR CHEST 1VW PORTABLE HISTORY: I50.9: Congestive heart failure, unspecified HF chronicity, unspecified heart failure type Procedure Note Brigitte Hamilton, DO - 03/16/2020 EXAMINATION: XR CHEST 1VW PORTABLE HISTORY: I50.9: Congestive heart failure, unspecified HF chronicity, unspecified heart failure type FINDINGS/IMPRESSION: No prior study is available for comparison at the time of this dictation. The lungs are clear. There is no focal consolidation, pleural effusion,or pneumothorax. The cardiomediastinal silhouette is normal. The visiblebony thorax is intact. Dictated by Scottie Madison MD (radiology rn). Dr. BRIGITTE De Oliveira have personally reviewed and interpreted this examination/study. This report was electronically signed by BRIGITTE HAMILTON on 03/16/2020 12:01 PM . Keena Cook MD DIAGNOSTIC IMAGING O RDERABLES * (ABNORMAL) B-TYPE NATRIURETIC PEPTIDE (03/14/2020 11:16 PM CDT) BNP 1,065(H) See Comment pg/mL 03/14/2020 11:55 PM CDT [facility] Comment: A decision threshold of 100 pg/mL has been demonstrated to provide the maximal combination of sensitivity, specificity and predictive value for the diagnosis of congestive heart failure (CHF). ??Virtually all patients with no evidence of CHF have BNP values less than 100 pg/mL. A BNP value greater than 100 pg/mL is consistent with the diagnosis of CHF in the appropriate clinical setting. In a study of 693 patients (male and female) with diagnosed CHF, the following values were determined based on the NYHA functional classification system: NYHA Functional Class ?Mean Valule (pg/mL) ? % >100 pg/mL ?I ?320 ? 58.1 ?II ? 432 ? 73.0 ?III ?656 ? 79.0 ?IV ?1635 ? 98.3 ? Blood BLOOD SPECIMEN / Unknown Venipuncture / Unknown 03/14/2020 11:16 PM CDT 03/14/2020 6:14 PM CDT Keena Cook MD LAB - CHEMISTRY [facility] [place] [address] [place] [address], [place] [phone] * LACTIC ACID BLOOD (03/14/2020 11:16 PM CDT) Lactic Acid-Stat 1.1 0.5 - 2.2 mmol/L 03/14/2020 11:42 PM CDT [facility] Blood BLOOD SPECIMEN / Unknown Venipuncture / Unknown 03/14/2020 11:16 PM CDT 03/14/2020 6:14 PM CDT Keena Cook MD LAB - CHEMISTRY [facility] [address] [address], [facility] [phone] Care Teams Preparator Relationship Specialty Start Date End Date Floyd Mckinney MD [address] [place] [address] PCP - General Internal Medicine 04/29/20
--- OUTSIDE RECORDS SUMMARY | 2024-05-22 02:13 | XMS_ITS | Encounter Summary ---
Author Organization [facility] Health Address [address] [facility] [place] [address] Care Team Providers Care Hydroponics Grower Name Role Phone Floyd Mckinney MD Primary Care Provider + [phone] Reason for Visit * Reason Onset Date Comments Follow-up 04/30/2020 Encounter Details Date Type Department Care Team (Late st Contact Info) Description 04/30/2020 Telephone [facility] [address] [facility] [address] [place] [address] Kaylee Mccain, DIRECT CASTING OPERATOR-LOAN DOCUMENTATION SPECIALIST [address] [place] [address] Follow-up Social History Tobacco Use Types Packs/Day [...] COVID-19? 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/2020 10:39 AM TOWER LOADER OPERATOR documented as of this encounter Functional Status [...] Telephone Encounter - Kaylee Mccain APRN-CNP - 04/30/2020 2:09 PM TOWER LOADER OPERATOR Called and spoke with patient's . Discussed plan for follow up. Will call with details of appointment date and time when scheduled. voiced understanding of need for referral from PCP. Continue following with primary fisher clam as before. No further questions at this time. Hold metformin until 05/02. No questions on this medication direction either. OLIVIA Mills R LOADER OPERATOR documented in this encounter Plan of Treatment Not on file documented as of this encounter Visit Diagnoses Not on filedocumented in this encounter Care Teams Hydroponics Grower Relationship Specialty Start Date End Date Flyod Mckinney MD [address] [place] [address] PCP - General Internal Medicine 04/29/20 documented as of this encounter
--- OUTSIDE RECORDS SUMMARY | 2024-05-22 02:13 | XMS_ITS | Encounter Summary ---
Author Organization [facility] Address [address] [place] [address] Care Team Providers Care Silverware Buffing Machine Operator Name Role Phone Floyd Mckinney MD Primary Care Provider [phone] Encounter Details Date Type Department Care Team (Late st Contact Info) Description 06/18/2020 10:30 AM DOCUMENT MANAGEMENT TECHNICIAN Office Visit [facility] Cardiology [address] [facility] [address] [place] [address] Oliver Biggs MD [address] [place] [phone] Coronary artery disease involving chickahominy indian tribe heart, angina presence unspecified, unspecified vessel or lesion type (Primary Dx) Social History Tobacco Use Types Packs/Day Years [...] Sign Reading Time Taken Comments Blood Pressure 122/82 06/18/2020 9:47 AM DOCUMENT MANAGEMENT TECHNICIAN Pulse 74 06/18/2020 9:47 AM DOCUMENT MANAGEMENT TECHNICIAN Temperature - - Respiratory Rate - - Oxygen Saturation 96% 06/18/2020 9:47 AM DOCUMENT MANAGEMENT TECHNICIAN Inhaled Oxygen Concentration - - Weight 87.1 kg (192 lb) 06/18/2020 9:47 AM DOCUMENT MANAGEMENT TECHNICIAN Height 180.3 cm (5' 11 ) 06/18/2020 9:47 AM DOCUMENT MANAGEMENT TECHNICIAN Body Mass Index 26.78 06/18/2020 9:47 AM DOCUMENT MANAGEMENT TECHNICIAN documented in this encounter Functional Status Functional [...] this encounter Patient Instructions * Patient Instructions* Kaylee Mccain APRN-CNP - 06/18/2020 10:52 AM DOCUMENT MANAGEMENT TECHNICIAN Please follow up with Dr. Burdick for an ECHO and appointment in 1 year. Continue your Plavix until February 2021. Decrease your atorvastatin (lipitor) to 40 mg from 80 mg. This has been sent to the pharmacy. Please keep your appointment with Dr. Cronin on 06/24/20 1040 to discuss the life-vest. If you have any questions, please call Kaylee Mccain [phone] MENT MANAGEMENT TECHNICIAN documented in this encounter Progress Notes * Oliver Biggs MD - 06/18/2020 11:04 AM CST Interval History: Feels much better since valve replacement No chest pain or SOB Review of system: Constitutional: No fevers, chills, sweat, fatigue, Cardiovascular: No SOB, chest pain, palpitations, syncope Gastrointestinal: No nausea, vomiting, abdominal pain Hematology: Bleeding from body orifices or bruises. Current medications Current Outpatient Medications Medication Sig Dispense Refill ??? aspirin (ASPIRIN) 81 MG chew tablet Take 1 tablet by mouth once daily 30 tablet 11 ??? atorvastatin (LIPITOR) 40 MG tablet Take 1 (one) tablet by mouth once daily 30 tablet 5 ??? SHAKA CONTOUR NEXT TEST test strip ??? clopidogrel (PLAVIX) 75 MG tablet Take 1 tablet by mouth once daily 30 tablet 11 ??? furosemide (LASIX) 20 MG tablet Take 1 tablet by mouth once daily (Patient not taking: Reportedon 06/18/2020) 30 tablet 3 ??? lisinopril (PRINIVIL; ZESTRIL) 2.5 MG tablet Take 1 tablet by mouth once daily 30 tablet 3 ??? metFORMIN CR 24hr modified (GLUMETZA) 1000 MG (MOD) tablet Take 1,000 mg by mouth 2 times daily ??? metoprolol succinate XL 24hr (TOPROL XL) 25 MG tablet Take 12.5 mg by mouth once daily ??? tamsulosin (FLOMAX) 0.4 MG capsule Take 0.4 mg by mouth once daily At the same time every day after a meal. No current facility-administered medications for this visit. Physical Exam: Vitals: BP 122/82 Pulse 74 Ht 5' 11 (1.803 m) Wt 192 lb (87.1 kg) SpO2 96% BMI 26.78 kg/m2 Wt Readings from Last 3 Encounters: 06/18/20 192 lb (87.1 kg) 04/29/20 192 lb 3.2 oz (87.2 kg) 03/19/20 183 lb 4.8 oz (83.1 kg) General: A&O x 3, in no acute distress, able to lie flat comfortably Neck: no JVD or hepatojugular reflux. No carotid bruits Chest: non-labored breathing, CTAB Cardiovascular: Apical pulse is normal/can???t be palpated, RRR, No S3 or murmurs Abdomen: Soft, NT/ND, +BS Extremities: No edema or cyanosis, intact distal pulses Neurological: PERRL, no facial asymmetry, intact motor power Investigation LABS: Recent Labs Component Name 04/30/20 0350 03/19/20 0610 03/18/20 0700 MAGNESIUM 1.6 1.9 2.0 Recent Labs Component Name 03/16/20 0933 03/15/20 1021 03/14/20 2317 TROPONINI 0.644* 0.985* 1.262* Assessment & Plan CAD, s/p TAVR EVOLUTE PRO 34, HFrEF EF 25%, NSVT on Tele; plan F/U with EP regarding NSVT, F/U withDr Almousali And need ECHo in one year, cont on DAPT for at least 6 months, decreased statin dose because of poor tolerance, cont ACEI and B-blockers. Oliver Biggs MD 11:04 AM MENT MANAGEMENT TECHNICIAN documented in this encounter Plan of Treatment Not on file documented as of this encounter Visit Diagnoses Diagnosis Coronary artery disease involving chickahominy indian tribe heart, angina presence unspecified, unspecified vessel or lesion type- Primary documented in this encounter Care Teams Silverware Buffing Machine Operator Relationship Specialty Start Date End Date Floyd Mckinney MD [address] [place] [address] PCP - General Internal Medicine 04/29/20 documented as of this encounter
--- OUTSIDE RECORDS SUMMARY | 2024-05-22 02:13 | XMS_ITS | Encounter Summary ---
Author Organization [facility] Address [address] [place] [address] Care Team Providers Care Stiff Neck Loader Name Role Phone Floyd Mckinney MD Primary Care Provider + [phone] Reason for Visit * Reason Onset Date Comments Follow-up 06/06/2020 Encounter Details Date Type Department Care Team (Late st Contact Info) Description 06/06/2020 Telephone [facility] [address] [facility] [address] [place] [address] Kaylee Mccain, DERMATOLOGICAL SURGEON-WAITER/WAITRESS BAR [address] [place] [address] Follow-up Social History Tobacco Use Types Packs/Day [...] Encounter - Kaylee Mccain APRN-CNP - 06/06/2020 2:05 PM [facility] Called and spoke with and patient. Reviewed KCCQ (see attached note), discussed EP follow up 06/[address] Cronin. No questions at this time. Agreeable to plan. [facility] * Telephone Encounter - Kaylee Mccain APRN-CNP - 06/06/2020 1:48 PM [facility] [place] Cardiomyopathy Questionnaire (KCCQ-12) Completed with patient 06/06/20 30 day post TAVR. 1. Heart Failure affects different people in [...] - 5 - Not at all Limited 2. Over the past 2 weeks, how [...] feel about this? 5 - Completely satisfied 8. How much does your heart failure affect your lifestyle? Please indicate how your heart failure may have limited your participation in the following activities over the past 2 weeks. A. Hobbies, recreational activities - 5 - Did not limit at all B. Working or doing process control specialist - 5 - Did not limit at all C. Visiting family or friends out of your home - 6 - Does not apply or did not do for other reasons KCCQ: 100 PL: 100 SF: 100 QL: 100 SL: 100 [facility] documented in this encounter Plan of Treatment Not on file documented as of this encounter Visit Diagnoses Not on filedocumented in this encounter Care Teams Stiff Neck Loader Relationship Specialty Start Date End Date Floyd Mckinney MD [address] [place] [address] PCP - General Internal Medicine 04/29/20 documented as of this encounter
--- OUTSIDE RECORDS SUMMARY | 2024-05-22 02:13 | XMS_ITS | Encounter Summary ---
Author Organization [facility] Address [address] [facility] [place] [address] Care Team Providers Care Machine Ii Coremaker Name Role Phone Floyd Mckinney MD Primary Care Provider + [phone] Reason for Visit * Radiology Services (Routine) - Closed Specialty Diagnoses / Procedures Referred By Contac t Referred To Contact Echosonography Diagnoses S/P TAVR (transcatheter aortic valve replacement) Procedures ECHO COMPLETE Kaylee Mccain, CRUISE COORDINATOR-PLASTIC TILE SETTER [address] [place] [address] [facility] [address] [place] [address] Referral ID Status Reason Start Date Expiration Date Visits Re quested Visits Authorized [id number] Closed 06/18/2020 06/18/2021 1 1 Encounter Details Date Type Department Care Team (Latest Contact Info) Description 06/18/2020 10:00 AM PRINTING TABLE HAND Ancillary Procedure [facility] Echosonography [address] [facility] [place] [address] S/P TAVR (transcatheter aortic valve replacement) Social [...] Date/Time Associated Diagnosis Comments ECHO COMPLETE Routine 06/18/2020 11:00 AM PRINTING TABLE HAND S/P TAVR (transcatheter aortic valve replacement) documented in this encounter Results * ECHO COMPLETE (06/18/2020 11:00 AM PRINTING TABLE HAND) Anatomical Region Laterality Modality Chest Echo 06/18/2020 10:0 9 AM PRINTING TABLE HAND Narrative Procedure Note Andrea Gifford MD - 06/18/2020 Kaylee Mccain CRUISE COORDINATOR-PLASTIC TILE SETTER ECHOCARDIOGRAPHY RADIANT documented in this encounter Visit Diagnoses Diagnosis S/P TAVR (transcatheter aortic valve replacement) documented in this encounter Care Teams Machine Ii Coremaker Relationship Specialty Start Date End Date Floyd Mckinney MD [address] [place] [address] PCP - General Internal Medicine 04/29/20 documented as of this encounter
--- OUTSIDE RECORDS SUMMARY | 2024-05-22 02:13 | XMS_ITS | Encounter Summary ---
Author Organization [facility] Address [address] [place] [place] [address] Care Team Providers Care Casino Worker Name Role Phone Floyd Mckinney MD Primary Care Provider [phone] Reason for Visit * Auth/Cert Specialty Diagnoses / Procedures Referred By Contac t Referred To Contact Diagnoses Aortic valve stenosis, etiology of cardiac valve disease unspecified Procedures CCL TRANSCATHETER AORTIC VALVE REPLACEMENT Referral ID Status Reason Start Date Expiration Date Visits Re quested Visits Authorized [id number] 1 1 Encounter Details Date Type Department Care Team (Late st Contact Info) Description 04/29/2020 10:09 AM PRODUCTION ADMINISTRATIVE ASSISTANT Anesthesia Event [facility] Cardiac Laboratory Immunologist/EPS [address] [place] [id number] Vel Newton MD [address] [place] [address] Agapito Garcia DO [address] [facility] [place] [id number] Anesthesia Record Procedure Summary Procedure Name Responsible Anesthesiologist Anesthesia Start Time Anesthesia Stop Time CCL TRANSCATHETER AORTIC VALVE REPLACEMENT Vel Newton MD 04/29/20 1009 04/29/20 1323 Events Date Time Event Comment 04/29/2020 0928 1009 Pt In Room 1009 An Start 1009 An Start Data 1010 Anes Timeout 1021 PT Reassessment 1021 Insert Art Line 1031 Induction 1033 An Intubation 1052 Anes Ready 1115 Time Out Anesthesia part icipated in timeout at the time documented in the record by nursing 1115 Proc Start 1123 Quick Note Lidocaine given 1140 Quick Note Paced to 100 1204 Quick Note Rapid pacing at 180 1211 Quick Note Pacing to 180 1241 Proc Stop 1245 An Emergence 1247 Extubation 1302 Pt out of Room 1302 ANPTO2 1322 an stop data 1323 An Stop Meds Name Total fentaNYL 100 mcg/2ml injection 200 mcg lidocaine PF 2% 100 mg propofol 200mg/20mL injection 60 mg rocuronium 50 mg/5 mL injection 90 mg ondansetron 4mg/2mL injection 4 mg sugammadex 200 mg/2mL injection 400 mg lidocaine (XYLOCAINE) 2 % injection 1 mL norepinephrine 8 mg/250 ml infusion 0.23 mg norepinephrine bolus syringe 24 mcg dexmedetomidine 200 mcg/50 mL infusion 9 .23 mcg ceFAZolin 2,000 mg IVPB 2 g EPINEPHrine 10 mcg/mL syringe 150 mcg EPINEPHrine (VIAL/AMPULE) 5 mg in 0.9% N aCl IV 250 mL infusion 0.28 mg heparin 5000 units/ml injection 9,000 Un its protamine 10 mg/mL injection 50 mg NS (0.9% NaCl) 0 mL LR (Lactated ringers) 0 mL * Agents No agents on file. * Blood No blood administrations on file. Lines, Drains, and Airways Type Details Placement Removal Peripheral IV Date: 04/29/20; Time : 816; Orientation: Left 04/29/20 08 by Rachell Mariee RN 04/30/20 2320 by Generic, Auto Release Arterial Line Date: 04/29/20; Time : 1021; Placed By: Agapito Garcia DO; Gauge: 20; Anesthetic Used: Yes; Line Secured: Taped; Tolerance: Well 04/29/20 1021 by Agapito Garcia 04/30/20 2320 by Generic, Auto Release ETT Date: 04/29/20; Time : 1033; Placed By: Agapito Garcia DO; Vent: easy mask, easy with oral airway mask; Induction: Standard IV; Blade Type: Wily; Blade Size: 3; Laryngoscopy View: Grade 1 (full cords); Intubation Adjuncts: Stylet, Cricoid Pressure; Tube: Endotracheal Tube; Placement: Oral; Tube Type: Cuffed-inflated; Tube Size(mm): 8 MM; Depth of Insertion: 22 CM; Measured From: lips; Attempts: 1; Cuff Infated: Air; Verified By: Direct visualization, Bilateral breath sounds, CO2 Detector 04/29/20 1033 by Agapito Garcia 04/29/20 1252 by Agapito Garcia Urethral Catheter 04/29/20; 1100; PEDRO LANDEROS RN; No; 16; 10 mL; Yes, Seal Intact; Well; 04/30/20; 2320 04/29/20 1100 by Leonor Evans RN 04/30/20 2320 by Generic, Auto Release Arterial Sheath 04/29/20; 1125; Kaitlynn Fernandez MD; Left; Femoral; 6 Bruneian; Injectable; Well; Kaitlynn Fernandez MD; 04/29/20; 1237; Treatment Completed; No complications 04/29/20 1125 by Leonor Evans RN 04/29/20 1237 by Leonor Evans RN Venous Sheath 04/29/20; 1126; Kaitlynn Fernandez MD; Left; Femoral; 7 Bruneian; Injectable; Moderate, General Anesthesia; Roxana, RTR; 04/29/20; 1245; Treatment Completed; No complications 04/29/20 1126 by Leonor Evans RN 04/29/20 1245 by Leonor Evans RN Arterial Sheath 04/29/20; 1127; Kaitlynn Fernandez MD; Right; Femoral; 6 Bruneian; Injectable; General Anesthesia; Kaitlynn Fernandez MD; 04/29/20; 1235; Treatment Completed; No complications 04/29/20 1127 by Leonor Evans RN 04/29/20 1235 by Leonor Evans RN Arterial Sheath 04/29/20; 1130; Kaitlynn Fernandez MD; Right; Radial; 6 Bruneian; Injectable; General Anesthesia; Roxana, RTR; 04/29/20; 1245; Treatment Completed; No complications 04/29/20 1130 by Leonor Evans RN 04/29/20 1245 by Leonor Evans RN Puncture Site 04/29/20; 1246; KAITLYNN FERNANDEZ MD; Right; Femoral; Venous; ROXANA, RTR; 04/30/20; 2320 04/29/20 1246 by Leonor Evans RN 04/30/20 2320 by Generic, Auto Release Puncture Site 04/29/20; 1247; KAITLYNN FERNANDEZ MD; Left; Femoral; Arterial; ROXANA RTR; 04/30/20; 23204/29/20 1247 by Leonor Evans RN 04/30/20 2320 by Generic, Auto Release Puncture Site 04/29/20; 1248; KAITLYNN FERNANDEZ MD; Right; Radial; Arterial; MD ROXANA; 04/30/20; 23204/29/20 1248 by Leonor Evans RN 04/30/20 2320 by Generic, Auto Release documented in this encounter Social History Tobacco Use Types Packs/Day Years [...] COVID-19? 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/2020 10:39 AM PRODUCTION ADMINISTRATIVE ASSISTANT documented as of this encounter Functional Status [...] No 03/19/2020 documented as of this encounter Progress Notes * Vel Newton MD - 04/29/2020 1:49 PM CST ANESTHESIA POSTOP EVALUATION NOTE Procedure: CCL TRANSCATHETER AORTIC VALVE REPLACEMENT Padmini Amador is a 79 year old male Patient Vitals for the past 6 hrs: BP Temp Pulse Resp SpO2 Pain Scale/Observation 04/29/20 0815 94/64 97.3 ??F (36.3 ??C) 66 (!) 7 96 % No/denies pain 04/29/20 0830 94/58 -- 73 26 98 % No/denies pain 04/29/20 0845 87/62 -- 68 12 98 % -- 04/29/20 0900 93/57 -- 74 17 100 % -- 04/29/20 0915 96/71 -- 75 22 99 % No/denies pain 04/29/20 0930 -- -- 76 11 100 % -- 04/29/20 0945 105/70 -- 75 14 99 % -- 04/29/20 0950 105/70 -- 72 15 100 % -- 04/29/20 1323 -- (!) 95.2 ??F (35.1 ??C) 71 20 100 % -- 04/29/20 1330 -- (!) 95.4 ??F (35.2 ??C) 71 11 100 % -- 04/29/20 1343 -- -- 70 10 100 % No/denies pain Anesthesia Type: general ETT * No Diagnosis Codes entered * Mental Status: arousable, oriented and sufficiently recovered from acute administration of anesthesia to participate in the evaluation Neuro Status: No numbness, tingling or visual disturbances Respiratory Function: natural Cardiac Function: stable Postop Pain: adequate Postop Hydration: adequate Postop Nausea: none Assessment: no apparent anesthetic complications, patient tolerated procedure well and no evidence of recall Patient Disposition: Follow Up Needed Additional Comments: Emerged in OR, patient able to participate in exam and doing well. Transporteddirectly to ICU for post op monitoring. COMPLICATIONS: No complications documented. UCTION ADMINISTRATIVE ASSISTANT * Vel Newton MD - 04/29/2020 8:11 AM CST ANESTHESIA PREOPERATIVE EVALUATION NOTE Procedure: CCL TRANSCATHETER AORTIC VALVE REPLACEMENT Last Clear Liquids: 0000 (Sip of water with medication 0530) (04/29/2020 8:05 AM) Vitals: No data found. ANESTHESIA PRE-EVALUATION NOTE History of Present Illness: Padmini Amador is a 79 year old M with history of of CAD, dm2, htn, hld, mild normocytic anemia, 2000 duodenal ulcer s/p GI bleed, diverticulosis, 2007 gallstone pancreatitis, BPH, psoriasis and morerecent diagnoses of severe cardiomyopathy including systolic and diastolic heart failure with EF <30%, Moderate to severe MR and severe who presents today for TAVR. He is s/p 3 CORBY on 03/18/2020 and remains on DAPT. He saw EP but ICD/PM was deferred until 90 days post revascularization, so nodevice is in place currently. The patient states that he has not attempted to exert himself since the stents were placed. This previous summer he walked a lot and did yard work but stopped in the fall. He has noticed his sleepingis improved (both feeling rested in the mornings and that his says his breathing at night is better). Physical Exam: Orientation X3 Airway/Mallampati Score: II Mouth Opening Distance: 2.5 fingerwidths Neck ROM: full TM Distance: > 3 FB Teeth: edentulous Heart: murmur Lungs: clear to ausculation bilaterally Abdomen Exam: normal Review of Systems: History of anesthetic complications: No Malignant Hyperthermia: No Recent Chest Pain: Yes (CORBY 6 weeks ago) Shortness of Breath: Yes AICD/Pacemaker: No Renal Disease: No Diagnostic Tests: ECG(s) reviewed: Yes Echo(s) reviewed: Yes. Stress Test(s) reviewed: Yes. Cardiac Cath(s) reviewed: Yes. Lab(s) reviewed: Yes. ANESTHESIA PLAN ASA Score: 4 NPO Status: No solids since midnight Anesthesia Plan: general ETT Planned Adjuncts: MATT and art line (CVP by cardiology for TAVR placement, CVL by anesthesia as backup plan only if needed.) Anesthetic plan was discussed with: patient Anesthetic Plan discussion was: Consented Use of blood products were discussed with: patient Use of blood product discussion was: Consented The patient's procedural Anesthetic Plan was discussed with the resident. Overall additional findings/comments: Epi and Norepi infusions prepared depending on heart rate andhemodynamics. Of note, this patient will require ICU and is inappropriate for technician terminal and repeater management in PACU. This was discussed with the cardiology and nursing team. Specifically Marybeth in Pre/Post spoke with Diana and the Pipeline Systems Operator who specifically assured her on the phone that an ICU bed would be available and assigned by end of the case. . BMI, Height, Weight Tobacco History Estimated body mass index is 28.38 kg/m?? as calculated from the following: Height as of this encounter: 1.753 m (5' 9 ). Weight as of this encounter: 87.2 kg (192 lb 3.2 oz). Social History Tobacco Use Smoking Status Never Smoker Smokeless Tobacco Never Used Alcohol History Drug History Social History Substance and Sexual Activity Alcohol Use Never ??? Frequency: Never Social History Substance and Sexual Activity Drug Use Never Outpatient Medications: Inpatient Medications: No outpatient medications have been marked as taking for the 04/29/20 encounter (Hospital Encounter)with [facility] HYBRID OR 3(CATH). Current Facility-Administered Medications Medication Dose Last Admin ??? 0.9% NaCl 250 mL ??? 0.9% NaCl 3 mL And ??? 0.9% NaCl 1-10 mL ??? dextrose 25-50 mL ??? glucagon 1 mg ??? insulin aspart 0-6 Units Allergies: No Known Allergies Relevant Problems No relevant active problems Problem List: Patient Active Problem List Diagnosis Date Noted ??? NSTEMI (non-ST elevated myocardial infarction) Priority: Not Prioritized ??? Severe aortic stenosis Priority: Not Prioritized ??? Moderate mitral insufficiency Priority: Not Prioritized ??? Ischemic cardiomyopathy Priority: Not Prioritized ??? Essential hypertension Priority: Not Prioritized ??? Mixed hyperlipidemia Priority: Not Prioritized ??? Type 2 diabetes mellitus with diabetic nephropathy, without long-term current use of insulin Priority: Not Prioritized ??? Acute on chronic combined systolic and diastolic heart failure Priority: Not Prioritized ??? Congestive heart failure 03/14/2020 Priority: Not Prioritized Medical History: Past Medical History: Diagnosis Date ??? CAD (coronary artery disease) ??? HFrEF (heart failure with reduced ejection fraction) ??? HLD (hyperlipidemia) ??? HTN (hypertension) ??? MD (myocardial infarction) ??? Psoriasis Surgical History: Past Surgical History: Procedure Laterality Date ??? Back Surgery 1998 ??? Cholecystectomy ??? HERNIA REPAIR, UMBILICAL Lab Results: Recent Labs Component Name 04/25/20 1132 WBC 8.1 RBC 4.03* HCT 36.4* HGB 11.7* PLTCOUNT 178 MCV 90.3 MCH 29.0 MCHC 32.1 MPV 10.8 Recent Labs Component Name 04/25/20 1132 POTASSIUM 4.5 CALCIUM 9.1 CO2 26 GLUCOSE 51* BUN 19 CREATININE 1.1 Recent Labs Component Name 04/25/20 1132 BLOODU Negative WBCU 0-5 NITRITE Negative PROTEINU Negative Recent Labs Component Name 04/25/20 1132 03/16/20 0530 PTT - 89.0* PT 13.4 - INR 1.1 - Recent Labs Component Name 03/19/20 0610 03/14/20 2316 03/14/20 2316 MAGNESIUM 1.9 - 2.1 BNP - - 1,065* - = values in this interval not displayed. Invalid input(s): PREGTESTUR Recent Labs Component Name 04/25/20 1132 03/15/20 0630 03/15/20 0630 ALT 12 - - AST 18 - - ALKPHOS 70 - - TBILI 1.1 - - ANIONGAP 17 - 18 EGFR >60 - >60 FERRITIN - - 225 IRON - - 90 TRANSFERRIN - - 238 - = values in this interval not displayed. UCTION ADMINISTRATIVE ASSISTANT documented in this encounter Procedure Notes * Agapito Garcia - 04/29/2020 10:56 AM CSTAssociated Order(s): ETT Placement Endotracheal Tube Placement: Patient Location: OR. Intubation Event Date/Time: 04/29/2020 10:33 AM Procedure: intubation ([id number]). Procedure Section: Sedation: under general anesthesia. Indications for Airway Management: anesthesia Induction: standard IV Patient Position: sniffing and supine Mask Ventilation: easy and easy [...] sounds and CO2 detector Tube secured with: adhesive tape. Difficult Airway? No. Procedure Start Time: 04/29/2020 10:33 AM. Staff Section Anesthesia Provider: Agapito Garcia DO, Performed the procedure UCTION ADMINISTRATIVE ASSISTANT * Agapito Garcia - 04/29/2020 10:55 AM CSTAssociated Order(s): Arterial Line Placement Arterial Line Placement Procedure Note Patient Location: OR. Procedure: Arterial Line ([id number]). Procedure Section Indications: continuous blood pressure monitoring and blood sampling needed. Consent: informed consent was obtained for the procedure. Skin Prep: Chloraprep. Location: left radial. Sterile Technique: cap, mask and sterile gloves. Local Anesthetic Used? Yes Local Types: lidocaine (XYLOCAINE) 2 % injection, 1 mL. Gauge: 20. Seldinger Technique Used? Yes Number of Attempts: 2. Line Secured with: tape and Tegaderm. Procedure Tolerance: tolerated well. Events: none. Procedure Start Time: 04/29/2020 10:21 AM. Staff Section Anesthesia Provider: Agapito Garcia DO, Performed the procedure UCTION ADMINISTRATIVE ASSISTANT documented in this encounter Miscellaneous Notes * Anesthesia Transfer of Care - Agapito Garcia - 04/29/2020 1:22 PM CST ANESTHESIA TRANSFER OF CARE NOTE Today's Date: 04/29/2020 Date of : 1940 Patient: Padmini Amador * No procedures listed * Surgeon(s): * No surgeons listed * Preop Diagnosis: * No Diagnosis Codes entered * Pre-op Meds (At 04/29/20 1008) Start Stop Status Route Frequency Ordered 04/29/20 0750 0.9% NaCl infusion rate and volume 04/30 0749 Verified IV ONCE PRN 04/29/20 0750 04/29/20 0750 0.9% NaCl injection 1-10 mL -- Dispensed IK PRN 04/29/20 0750 04/29/20 0800 0.9% NaCl injection 3 mL -- Dispensed IK EVERY 8 HOURS 04/29/20 0750 04/29/20 0750 dextrose IV 12.5-25 g -- Verified IV PRN 04/29/20 0750 04/29/20 0750 glucagon (GLUCAGEN) injection 1 mg -- Verified IM PRN 04/29/20 0750 04/29/20 0800 insulin aspart (NovoLOG) pen 0-6 Units -- Dispensed SC EVERY 4 HOURS 04/29/20 0750 04/29/20 1009 lactated ringers infusion -- Sent IV CONTINUOUS PRN 04/29/20 1054 04/29/20 0849 perflutren Lipid Microsphere (DEFINITY) injection SUSP 0.5 mL -- Dispensed IV INTRA-PROCEDURE MULTIPLE 04/29/20 0849 * No Diagnosis Codes entered * . No Known Allergies Vitals: No data found. Lines, Drains, and Airways Type Details Placement Removal Peripheral IV Date: 04/29/20; Time: 816; Orientation: Left; Location: Forearm; Gauge: 18 Gauge 04/29/20 08 by Rcahell Mariee RN Arterial Line Date: 04/29/20; Time: 102; Placed By: Agapito Garcia DO; Gauge: 20; Anesthetic Used: Yes; Line Secured: Taped; Tolerance: Well 04/29/20 1021 by Agapito Garcia DO ETT Date: 04/29/20; Time: 1033; Placed By: Agapito Garcia DO; Vent: easy mask, easy with oral airway mask; Induction: Standard IV; Blade Type: Wily; Blade Size: 3; Laryngoscopy View: Grade 1 (full cords); Intubation Adjuncts: Stylet, Cricoid Pressure; Tube: Endotracheal Tube; Placement: Oral; TubeType: Cuffed- inflated; Tube Size(mm): 8 MM; Depth of Insertion: 22 CM; Measured From: lips; Attempts: 1; Cuff Infated: Air; Verified By: Direct visualization, Bilateral breath sounds, CO2 Detector 04/29/20 1033 by Agapito Garcia DO 04/29/20 1252 by Agapito Garcia DO Intraprocedure I/O Totals None Patient Transfer Location: ICU Transport Airway: spontaneous respirations and supplemental O2 Transport Monitoring: heart rate, continuous pulse oximetry and frequent blood pressure checks Complications: None Handoff Given? Yes Agapito Garcia DO UCTION ADMINISTRATIVE ASSISTANT documented in this encounter Plan of Treatment Not on file documented as of this encounter Procedures Procedure Name Priority Date/Time Associated Diagnosis Comments ENDOTRACHEAL TUBE NOTE Routine 04/29/2020 10:56 AM PRODUCTION ADMINISTRATIVE ASSISTANT ARTERIAL LINE NOTE Routine 04/29/2020 10 :55 AM PRODUCTION ADMINISTRATIVE ASSISTANT documented in this encounter Results * ETT LINE PERFORMABLE (04/29/2020 10:56 AM PRODUCTION ADMINISTRATIVE ASSISTANT) Narrative Agapito Garcia - 04/29/2020 10:56 AM PRODUCTION ADMINISTRATIVE ASSISTANT Agapito Garcia DO ? 04/29/2020 10:56 AM Endotracheal Tube Placement: ? Patient Location: OR. Intubation Event Date/Time: ??04/29/2020 10:33 AM Procedure: intubation ([id number]). Procedure Section: ?? Sedation: under general anesthesia. [...] procedure Vel Newton MD GENERAL ANESTHESIA O RDERABLES * ARTERIAL LINE PERFORMABLE (04/29/2020 10:55 AM PRODUCTION ADMINISTRATIVE ASSISTANT) Narrative Agapito Garcia - 04/29/2020 10:55 AM PRODUCTION ADMINISTRATIVE ASSISTANT Agapito Garcia DO ? 04/29/2020 10:55 AM Arterial Line Placement Procedure Note Patient Location: OR. Procedure: Arterial Line ([id number]). Procedure Section ?? Indications: continuous blood pressure [...] Vel Newton MD GENERAL ANESTHESIA O MABLE documented in this encounter Visit Diagnoses Not on filedocumented in this encounter Administered Medications Inactive Administered Medications - up to 3 most recent administrations Medication Order MAR Action Action Date Dose Rate Site 0.9% NaCl infusion Intravenous, CONTINUOUS PRN, Starting on Tue04/29/20 at 1025, Until Tue04/29/20 at 1323, Anesthesia Intra-op $ New Bag/Syringe 04/29/2020 10:25 AM PRODUCTION ADMINISTRATIVE ASSISTANT ceFAZolin (ANCEF) 2,000 mg in 50 ml IVPB PRN, Starting on Tue04/29/20 at 1120, Until Tue04/29/20 at 1323, Anesthesia Intra-op $ Given 04/29/2020 11:20 AM PRODUCTION ADMINISTRATIVE ASSISTANT 2 g dexmedetomidine (PRECEDEX) 200 mcg in 50 mL infusion CONTINUOUS PRN, Starting on Tue04/29/20 at 1039, Until Tue04/29/20 at 1323, Anesthesia Intra-op $ New Bag/Syringe 04/29/2020 10:39 AM PRODUCTION ADMINISTRATIVE ASSISTANT 0.05 mcg/kg/hr 1.09 mL/hr EPINEPHrine (VIAL/AMPULE) 5 mg in 0.9% NaCl IV 250 mL infusion CONTINUOUS PRN, Starting on Tue04/29/20 at 1129, Until Tue04/29/20 at 1323, Anesthesia Intra-op Rate Change 04/29/2020 12:22 PM PRODUCTION ADMINISTRATIVE ASSISTANT 0.02 mcg/kg/min 5.23 mL/hr Rate Change 04/29/2020 11:56 AM PRODUCTION ADMINISTRATIVE ASSISTANT 0.04 mcg/kg/min 10.46 mL/hr Rate Change 04/29/2020 11:36 AM PRODUCTION ADMINISTRATIVE ASSISTANT 0.04 mcg/kg/min 10.46 mL/hr EPINEPHrine-NaCl 0.9% syringe PRN, Starting on Tue04/29/20 at 1120, Until Tue04/29/20 at 1323, Anesthesia Intra-op $ Given 04/29/2020 12:11 PM PRODUCTION ADMINISTRATIVE ASSISTANT 20 mcg $ Given 04/29/2020 12:04 PM PRODUCTION ADMINISTRATIVE ASSISTANT 30 mcg $ Given 04/29/2020 12:03 PM PRODUCTION ADMINISTRATIVE ASSISTANT 20 mcg fentaNYL (PF) (SUBLIMAZE) injection Intravenous, PRN, Starting on e 04/29/20 at 1018, Until e 04/29/20 at 1323, Anesthesia Intra-op $ Given 04/29/2020 12:42 PM PRODUCTION ADMINISTRATIVE ASSISTANT 50 mcg $ Given 04/29/2020 11:56 AM PRODUCTION ADMINISTRATIVE ASSISTANT 50 mcg $ Given 04/29/2020 11:00 AM PRODUCTION ADMINISTRATIVE ASSISTANT 50 mcg heparin injection PRN, Starting on Tue04/29/20 at 1144, Until Tue04/29/20 at 1323, Anesthesia Intra-op $ Given 04/29/2020 11:44 AM PRODUCTION ADMINISTRATIVE ASSISTANT 9,000 Units lactated ringers infusion Intravenous, CONTINUOUS PRN, Starting on Tue04/29/20 at 1009, Until Tue04/29/20 at 1323, Anesthesia Intra-op $ New Bag/Syringe 04/29/2020 10:09 AM PRODUCTION ADMINISTRATIVE ASSISTANT lidocaine (XYLOCAINE) 2 % injection Infiltration, Starting on Tue04/29/20 at 1055, Until Tue04/29/20 at 1055, Anesthesia Intra-op $ Given 04/29/2020 10:55 AM PRODUCTION ADMINISTRATIVE ASSISTANT 1 mL lidocaine hcl (PF) (XYLOCAINE MPF) 2 % injection Infiltration, PRN, Starting on Tue04/29/20 at 1031, Until Tue04/29/20 at 1323, Anesthesia Intra-op $ Given 04/29/2020 10:31 AM PRODUCTION ADMINISTRATIVE ASSISTANT 100 mg norepinephrine (LEVOPHED) 8 mg/250 ml NS infusion premix CONTINUOUS PRN, Starting on Tue04/29/20 at 1114, Until Tue04/29/20 at 1323, Anesthesia Intra-op Rate Change 04/29/2020 12:06 PM PRODUCTION ADMINISTRATIVE ASSISTANT 0.02 mcg/kg/min 3.27 mL/hr Rate Change 04/29/2020 11:56 AM PRODUCTION ADMINISTRATIVE ASSISTANT 0.04 mcg/kg/min 6.54 m L/hr Rate Change 04/29/2020 11:35 AM PRODUCTION ADMINISTRATIVE ASSISTANT 0.06 mcg/kg/min 9.81 m L/hr norepinephrine (LEVOPHED) bolus from infusion bag PRN, Starting on Tue04/29/20 at 1116, Until Tue04/29/20 at 1323, Anesthesia Intra-op $ Given 04/29/2020 11:34 AM PRODUCTION ADMINISTRATIVE ASSISTANT 16 mcg $ Given 04/29/2020 11:16 AM PRODUCTION ADMINISTRATIVE ASSISTANT 8 mcg Ondansetron HCl (ZOFRAN) injection Intravenous, PRN, Starting on Tue04/29/20 at 1236, Until Tue04/29/20 at 1323, Anesthesia Intra-op $ Given 04/29/2020 12:36 PM PRODUCTION ADMINISTRATIVE ASSISTANT 4 mg propofol (DIPRIVAN) injection Intravenous, PRN, Starting on Tue04/29/20 at 1031, Until Tue04/29/20 at 1323, Anesthesia Intra-op $ Given 04/29/2020 10:31 AM PRODUCTION ADMINISTRATIVE ASSISTANT 60 mg protamine injection PRN, Starting on Tue04/29/20 at 1235, Until Tue04/29/20 at 1323, Anesthesia Intra-op $ Given 04/29/2020 12:35 PM PRODUCTION ADMINISTRATIVE ASSISTANT 50 mg rocuronium (ZEMURON) injection Intravenous, PRN, Starting on Tue04/29/20 at 1031, Until Tue04/29/20 at 1323, Anesthesia Intra-op $ Given 04/29/2020 11:55 AM PRODUCTION ADMINISTRATIVE ASSISTANT 40 mg $ Given 04/29/2020 10:31 AM PRODUCTION ADMINISTRATIVE ASSISTANT 50 mg sugammadex (BRIDION) injection Intravenous, PRN, Starting on Tue04/29/20 at 1238, Until Tue04/29/20 at 1323, Anesthesia Intra-op $ Given 04/29/2020 12:38 PM PRODUCTION ADMINISTRATIVE ASSISTANT 400 mg documented in this encounter Care Teams Casino Worker Relationship Specialty Start Date End Date Floyd Mckinney MD [address] [place] [address] PCP - General Internal Medicine 04/29/20 documented as of this encounter
--- OUTSIDE RECORDS SUMMARY | 2024-05-22 02:13 | XMS_ITS | Encounter Summary ---
Author Organization [facility] Address [address] [place] [address] Care Team Providers Care Gear Setter Name Role Phone Floyd Mckinney MD Primary Care Provider [phone] Reason for Referral * Radiology Services (Routine) - Closed Specialty Diagnoses / Procedures Referred By Contac t Referred To Contact Echosonography Diagnoses Class 2 congestive heart failure, chronic, combined (HCC) NSTEMI (non-ST elevated myocardial infarction) (HCC) Ischemic cardiomyopathy 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) Procedures ECHO COMPLETE Enrike Cronin MD [address] [place] [id number] [facility] [address] [facility] [facility] [place] [address] Referral ID Status Reason Start Date Expiration Date Visits Re quested Visits Authorized [id number] Closed 06/24/2020 06/24/2021 1 1 NOLOGY SALES REPRESENTATIVE Encounter Details Date Type Department Care Team (Late st Contact Info) Description 06/24/2020 10:40 AM TECHNOLOGY SALES REPRESENTATIVE Office Visit [facility] [address] [facility] [address] [place] [address] Enrike Cronin MD [address] [place] [address] [id number] Class 2 congestive heart failure, chronic, combined (HCC) (Primary Dx); NSTEMI (non-ST elevated myocardial infarction) ([facility]); Ischemic cardiomyopathy; Acute on chronic combined systolic and diastolic heart failure ([facility]) Social History Tobacco Use Types Packs/Day Years [...] Sign Reading Time Taken Comments Blood Pressure 120/80 06/24/2020 10:17 AM TECHNOLOGY SALES REPRESENTATIVE Pulse - - Temperature 36.4 ??C (97.5 ??F) 06/24/2020 10:[address] Respiratory Rate - - Oxygen Saturation - - Inhaled Oxygen Concentration - - Weight 87.1 kg (192 lb) 06/24/2020 10:17 AM TECHNOLOGY SALES REPRESENTATIVE Height 180.3 cm (5' 11 ) 06/24/2020 10:17 AM TECHNOLOGY SALES REPRESENTATIVE Body Mass Index 26.78 06/24/2020 10:17 AM TECHNOLOGY SALES REPRESENTATIVE documented in this encounter Functional Status Functional [...] * Patient Instructions* Rossy Rebollar, DEANA - 06/24/2020 11:21 AM TECHNOLOGY SALES REPRESENTATIVE Please increase lisinopril to 5 mg daily. Please get another Echo here at the clinic on the same day as your appointment, and see Dr. Iqbal 2nd or 3rd week of July. Dr. Cronin is pleased that your EF% is improving and it is now 32% which is a big improvement fromyour last Echo. He wants to reevaluate your EF in July after you've been recovering and taking your increased lisinopril dose because this benefits your recovery. Echo 06/18/20 s/p TAVR EVOLUTE PRO 34. Mild to moderate paravalvular aortic insufficiency, location anterolateral. There is mild aortic stenosis with a peak velocity of 1.7 m/sec, mean gradient of 7 mmHg, aortic valve area of 1.9 cm??, and an NSDI of 0.54. The left ventricle is moderately increased in size. Left ventricular systolic function is severely decreased with an ejection fraction by Biplane Method of Discs of 32 %. The left ventricular diastolic function is abnormal (Grade III), consistent with elevated left ventricle filling pressures. The left atrium is severely enlarged. 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 He is tolerating his medicines well and is coming today to discusshis eligibility for primary prevention ICD. I explained to him that he has to be on GDMT for 3 months prior to re-assessing his LVEF to decide whether he will qualify for primary prevention ICD or not. Plan For follow up on 07/29/2020 with echo to decide whether he will qualify for primary prevention ICD ornot. Increase lisinopril to 5 mg daily. 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 He is tolerating his medicines well and is coming today to discusshis eligibility for primary prevention ICD. Patient Active Problem List Diagnosis Date Noted ??? S/P TAVR (transcatheter aortic valve replacement) 04/29/2020 Priority: Not Prioritized ??? NSTEMI (non-ST elevated myocardial infarction) Priority: [...] Congestive heart failure 03/14/2020 Priority: Not Prioritized PMH: Past Medical History: Diagnosis Date ??? CAD (coronary artery disease) ??? HFrEF (heart failure with reduced ejection fraction) ??? HLD (hyperlipidemia) ??? HTN (hypertension) ??? OR (myocardial infarction) ??? Psoriasis Past Surgical Hx: Past Surgical History: Procedure Laterality Date ??? Back Surgery 1998 ??? Cholecystectomy ??? HERNIA REPAIR, UMBILICAL Allergies: No Known Allergies Current Medications: Current Outpatient Medications Medication Sig Dispense Refill [...] Reportedon 06/18/2020) 30 tablet 3 ??? lisinopril (PRINIVIL;ZESTRIL) 5 MG tablet Take [...] No current facility-administered medications for this visit. OBJECTIVE: Wt Readings from Last 3 Encounters: 06/24/20 192 lb (87.1 kg) 06/18/20 192 lb (87.1 kg) 04/29/20 192 lb 3.2 oz (87.2 kg) Vitals: 06/24/20 1017 BP: 120/80 Temp: 97.5 ??F (36.4 ??C) Weight: 192 lb (87.1 kg) Height: 5' 11 (1.803 m) Estimated [...] distal pulses Neuro: CN II-XII grossly intact. Enrike Cronin MD 06/24/2020 NOLOGY SALES REPRESENTATIVE documented in this encounter Plan of Treatment Not on file documented as of this encounter Results * ECHO COMPLETE (08/05/2020 11:26 AM CDT) Anatomical Region Laterality Modality Chest Echo 08/05/2020 11:0 4 AM CDT Narrative Procedure Note Anjelica Hart MD - 08/06/2020 Enrike Cronin MD ECHOCARDIOGR AP[facility]indy RADIANT documented in this encounter Visit Diagnoses Diagnosis Class 2 congestive heart failure, chronic, combined (HCC)- Primary NSTEMI (non-ST elevated myocardial infarction) (HCC) Acute myocardial infarction, subendocardial infarction, episode of care unspecified Ischemic cardiomyopathy Other specified forms of chronic ischemic heart disease 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) Acute on chronic combined systolic and diastolic heart failure documented in this encounter Care Teams Gear Setter Relationship Specialty Start Date End Date Floyd Mckinney MD [address] [place] [phone] PCP - General Internal Medicine 04/29/20 documented as of this encounter
--- OUTSIDE RECORDS SUMMARY | 2024-05-22 02:13 | XMS_ITS | Encounter Summary ---
Author Organization [facility] Address [address] [place] [address] Care Team Providers Care Digital Composer Name Role Phone Floyd Mckinney MD Primary Care Provider [phone] Encounter Details Date Type Department Care Team (Late st Contact Info) Description 07/16/2020 Orders Only [facility] - COVID Vaccine [address] [place] [phone] Tex Ontiveros MD [address] [place] [address] Need for vaccination Social History Tobacco Use [...] disease documented in this encounter Care Teams Digital Composer Relationship Specialty Start Date End Date Floyd Mckinney MD [address] [place] [phone] PCP - General Internal Medicine 04/29/20 documented as of this encounter
--- OUTSIDE RECORDS SUMMARY | 2024-05-22 02:14 | XMS_ITS | Encounter Summary ---
Author Organization [facility] Health Address [address] [place] [address] Care Team Providers Care Mortgage Sales Manager Name Role Phone Unavailable Primary Care Provider Unavailabl e Reason for Visit * Auth/Cert Specialty Diagnoses / Procedures Referred By David t Referred To Contact Diagnoses Heart Failure Referral ID Status Reason Start Date Expiration Date Visits Re quested Visits Authorized [id number] 1 1 Encounter Details Date Type Department Care Team (Late st Contact Info) Description 03/14/2020 10:29 PM CDT - 03/19/2020 7:53 PM CDT Hospital Encounter [facility] 7S ACUTE [address] [place] [id number] Jay Stewart MD [address] [address] Andrea Gifford MD [address] [address] Cardiology Discharge Disposition: Home or Self Care [...] Sign Reading Time Taken Comments Blood Pressure 100/85 03/19/2020 3:14 PM CDT Pulse 56 03/19/2020 3:14 PM CDT Temperature 36.6 ??C (97.9 ??F) 03/19/2020 3:14 PM CD T Respiratory Rate 20 03/19/2020 3:14 PM CDT Oxygen Saturation 98% 03/19/2020 3:14 PM CDT Inhaled Oxygen Concentration - - Weight 83.1 kg (183 lb 4.8 oz) 03/19/2020 5:00 A M CDT Height 180.3 cm (5' 11 ) 03/14/2020 10:53 PM CDT Body Mass Index 25.57 03/14/2020 10:53 PM CDT documented in this encounter Functional Status [...] as of this encounter Discharge Summaries * Galindo Reyes MD - 03/19/2020 7:40 AM CDT Physician Discharge Summary Patient ID: Padmini Amador [id number] 79 year old 1940 Admit date: 03/14/2020 Discharge date and time: 03/14/2020 Admitting Physician: Jay Stewart MD Discharge Physician: Feliciano Viveros MD Present on Admission:Heart Failure Discharge Diagnoses: CAD, DM2, htn, hld, normocytic anemia, diverticulosis, gallstone pancreatitis 2007, BPH, psoriasis, CORBY PCI to distal Cx, prox OM2, superior OM2 Admission Condition: Poor Discharged Condition: Stable Indication for Admission: Multi-vessel CAD Hospital Course: Mr Padmini Amador is a 79 yo m with PMH CAD, dm2, htn, hld, mild normocytic anemia, 2001 duodenal ulcer s/p GI bleed,??diverticulosis,??2008 gallstone pancreatitis, BPH, psoriasis who was admitted as an outside hospital transfer from [facility] on 03/14/2020. Historically, patient was admitted on 02/27/2020 to [facility] with new onset heart failure and was subsequently discharged. Scheduled left heart catheterization on 03/10/2020 showing multi vessel CAD at [facility]. However, patient returned to their ER that afternoon due to shortnessof breath and fatigue. On 03/10/2020 he was found to have troponin 5 in context of having heart catheterization that day; was admitted and transferred to [facility] and found to have moderate to severe aortic stenosis on outside hospital imaging. He was subsequently transferred to [facility] for CABG v PCI evaluation. ?? At OSH, ntproBNP 7490, troponin 5.64, ECG without NORAH or ST Depressions, in context of heart catheterization that day. At [facility] after transfer, pt's troponin downtrending 1.262 -> 0.985, BNP 1065. Lipid panel showed TC 115, TG 75, LDL 65, HDl 35. CBC, BMP not clinically significant. ECG with PVCs, prolonged QT. CXRwith pulmonary vascular congestion. Patient was initiated on heparin drip, subsequently discontinued. He was given IV diuresis and maintained on heart failure medical therapy. Cardiac surgery was consulted. And repeat imaging TTE was obtained as described below that showed combined systolic, diastolic heart failure with severe aorticstenosis, moderate to severe mitral regurgitation. Cardiac surgery declined open heart surgical intervention. Patient was taken to the dairy laboratory technician on 03/18/2020 and received 3 CORBY stents to distal LCx, proximal OM2, superior OM2. Upon discharge, patientwill receive a lifevest due to poor ejection fraction. At this time, he remains stable for discharge with follow up ??for future interventions. He will need follow up TTE to evaluate heart function recovery to titrate goal directed medical therapy with medication; he will need future TAVR workup for low flow low gradient and future ICD evaluation. Consults: Cardiac surgery Significant Diagnostic Studies: 03/17/2020 TTE Summary Severe ischemic cardiomyopathy with > 50% LV [...] enlarged. Estimated right atrial pressure 13 mmHg. Normal PVR of 6.4 Wood units. The [...] root and ascending aorta. No pericardial effusion. Final read pending 03/18/2020 Cath Report [facility] Cardiac Catheterization Procedure Note ?? Patient: Padmini Amador Age: [age] year old Date of : 1940 Date of Admission: 06/16/2019 Procedure Date: 03/18/20 ?? FELLOW / DELICATESSEN SLICER: Anup Steele M.D ?? ATTENDING PHYSICIAN: Dr. Oliver Quispe. ? PREVIOUS STRESS STUDIES WITHIN 6 MONTHS: None ?? DIAGNOSTIC APPROPRIATENESS CRITERIA: Indication 20/Score 7 A ?? HISTORY: Patient is a 79 year old gentleman with PMH of Hypertension, HLD, DM2 coming in from an outside hospital where he had presented with an NSTEMI and was found to have triple vessel disease. Healso has moderate . After consulting with CT surgery, ti was decided to go ahead with TAVR and PCI. He is here for a LHC and PCI.? ACCESS SITE(S): right radial artery ?? PROCEDURAL OVERVIEW: After obtaining informed consent and positioning the patient on the catheterization table, a timeout was performed to confirm the patient???s name, date of , and procedure. Sedation was initiated and the patient was prepped and draped using standard sterile technique. Lidocaine was used for local anesthesia over the access site, after which the vessel was accessed and a sheath was placed using the modified Seldinger technique. Access was uncomplicated. Intra-arterial verapamil and intravenous heparin were administered to minimize risk of radial artery spasm or occlusion. Coronary angiography was performed using 6 Fr TIG 4 and FR 4 catheter(s). Intervention was performed as described inPCI report. At the conclusion of the procedure, hemostasis was achieved using a radial compression device after removal of all catheters, wires, and sheaths. ?? SEDATION: Moderate sedation on this adult patient was ordered by Dr. Brittaney Martines, administered intravenouslyin their presence, and monitored by the procedure nurse as an independent trained observer who was present throughout the procedure. The following parameters were monitored: oxygen saturation, heart r ate, blood pressure, and response to care. Intra-service sedation start time was 12: 50 PM and end time was 2:33 pm during which the attending was present. Total physician intra-service sedation timewas 107 minutes. For details on pre- moderate sedation and post-moderate sedation patient evaluation, please review the [facility] For details on monitored clinical parameters during the intra-service sedation time, please review the procedure nurse documentation in [facility]. Total sedation administered as follows: 50 mcg IV fentanyl, 0 mg IV midazolam, and 0 mg IV benadryl. 2 ml of 1% lidocaine was administered subcutaneously at the access site. ?? TOTAL CONTRAST USED (Isovue 370): 200 ml ? TOTAL BLOOD LOSS: 10 ml ? COMPLICATIONS: None ?? HEMODYNAMIC FINDINGS: 130/70/87 mmHg: Ao ? AK: 1332 mGy DAP: 10,4000 cGycm2 Fluoro time: 29.8 min ? ANGIOGRAPHY: ?? i. ?Left main: Bifurcates into LAD and Circumflex. Mild luminal irregularities Noted. ii.?LAD: Proximal LAD has mild diffuse 10-20% stenosis. Mid LAD has diffuse Moderate 30-40% disease. Apical LAD has PICK PACK WORKER. iii. ?? LCx: Dominant vessel. Proximal and [...] dominant vessel. Has mild luminal irregularities throughout. ? DOMINANCE: Left ?? DIAGNOSTIC INTERPRETATIONS: 1. 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 ? RECOMMENDATIONS AFTER DIAGNOSTIC CATHETERIZATION: Proceed with PCI of LCx/OM2 ?? Anup Seth Hawkins MD 03/19/2020 ? APPROPRIATENESS CRITERIA FOR PCI: iNDICATION 20, Score 7 A ?? PCI INDICATION: NSTEMI Primary PCI of the Infarct Artery-Class: I ?? PCI STATUS: elective ?? PCI PROCEDURAL MODIFIERS: none ?? LESION UNDERGOING INTERVENTION : PCI TO THE LCX/OM2. 1. LESION MODIFIERS: lesion complexity class C 2. RESTENOSIS?:no 3. ACCESS: The existing sheath was used for the PCI procedure. 4. GUIDE: 6 fr XB 3.5 guide catheter was used for intervention. 5. ORAL ANTIPLATELET THERAPY: Aspirin and clopidogrel 6. INTRAVENOUS ANTICOAGULATION DURING PCI: Heparin 7. INTERVENTIONAL WIRE: A QFPayi wire was advanced beyond the lesion into the distal vessel. 8. PROCEDURE DETAILS:Balloon angioplasty was performed using a 2.0 x 12 mm NC Emerge MR balloon @ 16 DIXIE/16 Seconds and @10 atms/10 seconds. After angioplasty, a Xience drug-eluting 2.5 x 15 mm stentwas deployed across the lesion @16 atms/35 seconds. 9. After intervention, the 80% stenosis was reduced to 0% with KERA-iii flow prior to PCI and KERA-iii flow after PCI. ?? LESION UNDERGOING INTERVENTION : PCI TO THE OM2. 1. LESION MODIFIERS: lesion complexity class C 2. RESTENOSIS?:no 3. ACCESS: The existing sheath was used for the PCI procedure. 4. GUIDE: 6 Fr XB 3.5 guide catheter was used for intervention. 5. ORAL ANTIPLATELET THERAPY: Aspirin and clopidogrel 6. INTRAVENOUS ANTICOAGULATION DURING PCI: Heparin 7. INTERVENTIONAL WIRE: A BMW wire was advanced beyond the lesion into the distal Vessel. Initially, we attempted to pass a 2.0 [...] Xience Karla drug-eluting 3.5 x 12 mm stent was deployed across the lesion. Then a 6 Frguidezilla was advanced into the OM2 branch through the proximal OM 2 stent using serial inflation of a 2.0 x 12 mm NC Emerge MR balloon. The a 1.2 x 15 mm Emerge MR balloon was advanced beyond the lesion into the superior branch of OM2 and inflated 2 18 atms/10 seconds. This was then exchanged fora 2.0 x 20 mm Emerge MR Balloon inflated @ 8 atms/8 seconds. Then a 2.25 x 12 Xience Karla Drug Elu ting Stent was deployed @ 18 dixie/14 seconds. 9. After intervention, the 90% stenosis was reduced to 0% with KERA-ii flow prior to PCI and KERA-iii flow after PCI. ? COMPLICATIONS: none ?? HEMOSTASIS: At the conclusion of the procedure, hemostasis was achieved using a radial compression device after removal of all catheters, wires, and sheaths. ?? INTERVENTIONAL CONCLUSIONS: 1. Successful implantation of 2.5 x 15 mm Xience Karla Drug Eluting Stent in the distal circumflex. 2. Successful implantation of 3.5 x 12 mm Xience Karla Drug Eluting Stent in proximal OM2 branch. 3. Successful implantation of 2.25 X 12 Xience Karla Drug Eluting stent in the superior branch of OM2. ?? RECOMMENDATIONS AFTER INTERVENTIONAL PROCEDURE: Aspirin 81 mg QDAY indefinitely. Clopidogrel 75 mg QDAY for 12 months minimum given drug eluting stent placement. Aggressive modification of atherosclerotic risk factors. Right radial TR band to be removed in 2 hours. ? Anup eSth Hawkins MD 03/19/2020 ?? I was present for the entirety of the described procedure.?? Discharge Exam: General: Engaging, NAD, Mild memory deficits CV: RRR, 2+ crescendo decrescendo systolic murmur without radiation to carotids, no r/g, mild JVD PULM: CTAB anteriorly and posteriorly Abdomen: Soft, NT, ND Extremities: L thigh semicircular dry plaque rash Disposition: Home with cardiology follow up and cardiology rehab and lifevest Patient Instructions: Current Discharge Medication List START taking these medications Instructions Authorizing Provider aspirin 81 MG chew tablet Commonly known as: ASPIRIN Quantity Dispensed: 30 tablet Take 1 tablet by mouth once daily Galindo Reyes MD atorvastatin 80 MG tablet Commonly known as: LIPITOR Quantity Dispensed: 30 tablet Take 1 tablet by mouth at bedtime Galindo Reyes MD clopidogrel 75 MG tablet Commonly known as: plaVIX Quantity Dispensed: 30 tablet Take 1 tablet by mouth once daily Galindo Reyes MD CONTINUE taking these medications which have CHANGED Instructions Authorizing Provider furosemide 20 MG tablet What changed: ?? medication strength ?? how much to take Commonly known as: LASIX Quantity Dispensed: 30 tablet Take 1 tablet by mouth once daily Galindo Reyes MD lisinopril 2.5 MG tablet What changed: ?? medication strength ?? how much to take Commonly known as: PRINIVIL; ZESTRIL Quantity Dispensed: 30 tablet Take 1 tablet by mouth once daily Galindo Reyes MD metoprolol succinate XL 24hr 50 MG tablet What changed: ?? medication strength ?? how much to take Commonly known as: TOPROL XL Quantity Dispensed: 30 tablet Take 1 tablet by mouth once daily Galindo Reyes MD CONTINUE taking these medications which have NOT CHANGED Instructions Authorizing Provider Doxazosin Mesylate 8 MG finasteride 5 MG tablet Commonly known as: PROSCAR Take 5 mg by mouth once daily glimepiride 2 MG tablet Commonly known as: AMARYL Take 2 mg by mouth daily with breakfast metFORMIN CR 24hr modified 1000 MG (MOD) tablet Commonly known as: GLUMETZA Take 1,000 mg by mouth 2 times daily tamsulosin 0.4 MG capsule Commonly known as: FLOMAX Take 0.4 mg by mouth once daily At the same time every day after a meal. STOP taking these medications pravastatin 40 MG tablet Commonly known as: PRAVACHOL Patient discharged with lifevest. Patient to have follow up echo and follow up evaluation for ICD and TAVR. Patient seen and discussed with Dr Viveros. Signed: Galindo Reyes MD Internal Medicine PGY1 03/19/2020 0800AM Associated attestation - Feliciano Viveros MD - 03/19/2020 7:32 PM CDT ATTENDING PHYSICIAN NOTE Patient seen and examined with the resident. I confirm history, exam, assessment and plan. In addition I note: Interval history: PMH CAD, dm2, htn, hld, mild normocytic anemia, 2000 duodenal ulcer s/p GI bleed,diverticulosis, 2007 gallstone pancreatitis, BPH, psoriasis who was admitted on 03/14/2020 for evaluation for PCI v CABG [facility]: 60% prox LAD, 90% D1 and D2, 90% OM. ECHO with severe LV and La dilatation, akinetic scarred inferolateral, anterolateral, anterior walland apex. Hypokinetic remotre wall motion. EF 20- 25%, moderate functional MR, regurgitannt orifice area 20 mm2, volume 25-30 ml. Severe low gradient . AV velocity 2.6 m/sec. VTI 61 cm. LVOT diameter 2.2 cm. Velocity 0.45 m/sec, VTI 10.9 cm. LVOT/AV velocity and VTI ratios 0.17. Area 0.6-0.7 cm2. Lowoutput failure. CO 2.5 L/min/ CI 1.3 L/min/M2. Severe DD. LA pressure high E/E' ratio 30-40. Modest TR, venous pressure. PA pressure 40-45 mmHg. No effusion. 03/19/20 ECHO 03/17: Severe ischemic cardiomyopathy with > 50% LV [...] volume index 99 ml/M2 indicative of adverse prognosis). Left ventricular systolic function is severely decreased [...] abnormal suggesting moderately severely elevated LA pressure. CTS consult. Not candidate for CABG due to severe scar with > 50% of LV nonviable and scar. Cr 1.1. LAD and RCA modestly functional. Modest TR. Plan PCI and then TAVR. CORBY dLCX, pOM2, superior branch of OM2. Final plans to follow. CXR: CM, PVR, failure. Sinus, PVCs, LAE, IVCD, possible IMI, PRP. ST depression and alteral T inversion. Lungs clear by exam. LifeVEST tpday and DC home. Valve clinic FU for TAVR. Plan TAVR before assess for ICD. Continue LifeVEST until all interventions done. PCI, LifeVest, TAVR, FU ECHO, and then likely ICD. Diuresis po and med optimization. Limited titration for now. Instrument and then titrate meds when done. CT TAVR today. Also assess lungs for fluid. Exam: BP 101/63 Pulse 61 Temp 98 ??F (36.7 ??C) (Oral) Resp 20 Ht 5' 11 (1.803 m) Wt 190 lb 9.6 oz(86.5 kg) SpO2 96% BMI 26.58 kg/m2 Gen: NAD. Neck: (+) JVD/HJR Cor: RRR. LV/RV heaves. S4, S1, 3/6 CECILIA, 2/6 HSM LSB and apex, A2, loud P2, soft S3. Resp: minimal rales bilaterally. GI: soft. NT, HJR. Ext: 1+ edema Medications were reviewed; please see warehouse loader's note for complete list. Data Review: Lab Results: Recent Labs Component Name 03/19/20 0610 03/18/20 0700 03/17/20 0615 WBC 7.7 7.4 6.8 HGB 11.9* 13.3* 12.5* HCT 35.6* 40.8 37.4* PLTCOUNT 177 195 194 Recent Labs Component Name 03/19/20 0610 03/18/20 0700 03/17/20 0618 POTASSIUM 4.5 4.9* 4.6* CO2 27 26 28 BUN 29* 31* 30* CREATININE 1.1 1.1 1.0 GLUCOSE 168* 185* 173* CALCIUM 9.5 9.6 9.6 Recent Labs Component Name 03/16/20 0530 03/15/20 2356 03/15/20 1624 03/14/20 2317 03/14/20 2317 INR - - - - 1.1 PT - - - - 14.0 PTT 89.0* 76.8* >200.0* - 35.3 - = values in this interval not displayed. Recent Labs Component Name 03/14/20 2316 ALKPHOS 69 ALT 17 AST 22 No results for input(s): TSH in the last 63376 hours. No results for input(s): CKMB, TROPONIN, MYOGLOBIN in the last 40824 hours. No results for input(s): PHART, TBJ5YLL, PO2ART, K5GXNEFA, LYA7OKJ, BEART, FIO2 in the last 54804 hours. Recent Labs Component Name 03/15/20 0630 CHOL 115 HDL 35* TRIG 75 LDLCALC 65 Assessment/Plan: PMH CAD, dm2, htn, hld, mild normocytic anemia, 2000 duodenal ulcer s/p GI bleed, diverticulosis, 2007 gallstone pancreatitis, BPH, psoriasis who was admitted on 03/14/2020 for evaluation for PCI v CABG [facility]: 60% prox LAD, 90% D1 and D2, 90% OM. ECHO with severe LV and La dilatation, akinetic scarred inferolateral, anterolateral, anterior walland apex. Hypokinetic remotre wall motion. EF 20- 25%, moderate functional MR, regurgitannt orifice area 20 mm2, volume 25-30 ml. Severe low gradient . AV velocity 2.6 m/sec. VTI 61 cm. LVOT diameter 2.2 cm. Velocity 0.45 m/sec, VTI 10.9 cm. LVOT/AV velocity and VTI ratios 0.17. Area 0.6-0.7 cm2.Lowoutput failure. CO 2.5 L/min/ CI 1.3 L/min/M2. Severe DD. LA pressure high E/E' ratio 30-40. Modest TR, venous pressure. PA pressure 40-45 mmHg. No effusion. CTS consult. Not candidate for CABG due to severe scar with > 50% of LV nonviable and scar. Cr 1.1. LAD and RCA modestly functional. Modest TR. 03/19/20 ECHO 03/17: Severe ischemic cardiomyopathy with > 50% LV [...] abnormal suggesting moderately severely elevated LA pressure. CTS consult. Not candidate for CABG due to severe scar with > 50% of LV nonviable and scar. Cr 1.1. LAD and RCA modestly functional. Modest TR. Plan PCI and then TAVR. CORBY dLCX, pOM2, superior branch of OM2. Final plans to follow. CXR: CM, PVR, failure. Sinus, PVCs, LAE, IVCD, possible IMI, PRP. ST depression and alteral T inversion. Lungs clear by exam. LifeVEST tpday and DC home. Valve clinic FU for TAVR. Plan TAVR before assess for ICD. Continue LifeVEST until all interventions done. PCI, LifeVest, TAVR, FU ECHO, and then likely ICD. Diuresis po and med optimization. Limited titration for now. Instrument and then titrate meds when done. CT TAVR today. Also assess lungs for fluid. Please see the resident's note for further details. Feliciano Viveros MD, F.A.C.C. dentist/owner 03/18/2020 11:07 AM documented in this encounter Discharge Instructions * Discharge Instructions* Roselyn Wall RN - 03/19/2020 5:15 PM CDT Images from the original note were not included. DISCHARGE INSTRUCTIONS: You were admitted because you had a massive heart attack. This causes you to have shortness of breath and coughing due to your fluid in your lungs as it is not passing well through your heart due to your heart failure. For this, your heart arteries will be kept open with the stents that were placed in the dairy laboratory technician. You received 3 drug eluting stents in your heart artery. As discussed, you will need to keep taking aspirin and plavix for a year for these heart artery stents. Your heart disease caused your heart function to not be completely normal, and your heart has a scar. That scar can cause your heart to not pump out blood effectively. Due to this, you need a lifevest to shock your heart if it develops an abnormal rhythm that will not allow your heart to get blood to your body. And you need appropriate medication that was initiatedwhile you were here. You will need to follow up with cardiologists, electrophysiologists, cardiac heart valve teams regarding future procedures to replace your heart valve and a future device in your heart. ?? Refrain from strenuous activity at this time. Continue eating a healthy diet, limiting fast foods and fried foods and foods high in animal products. Try to increase your vegetable intake. If you need to call [facility] for any reason, you may reach us at [phone] and dial [phone] for the turbo electric operator. ?? DISCHARGE MEDICATIONS: Medication List START taking these medications aspirin 81 MG chew tablet Commonly known as: ASPIRIN Take 1 tablet by mouth once daily atorvastatin 80 MG tablet Commonly known as: LIPITOR Take 1 tablet by mouth at bedtime clopidogrel 75 MG tablet Commonly known as: plaVIX Take 1 tablet by mouth once daily CHANGE how you take these medications furosemide 20 MG tablet Commonly known as: LASIX Take 1 tablet by mouth once daily What changed: ?? medication strength ?? how much to take lisinopril 2.5 MG tablet Commonly known as: PRINIVIL; ZESTRIL Take 1 tablet by mouth once daily What changed: ?? medication strength ?? how much to take metoprolol succinate XL 24hr 50 MG tablet Commonly known as: TOPROL XL Take 1 tablet by mouth once daily What changed: ?? medication strength ?? how much to take CONTINUE taking these medications Doxazosin Mesylate 8 MG finasteride 5 MG tablet Commonly known as: PROSCAR glimepiride 2 MG tablet Commonly known as: AMARYL metFORMIN CR 24hr modified 1000 MG (MOD) tablet Commonly known as: GLUMETZA tamsulosin 0.4 MG capsule Commonly known as: FLOMAX STOP taking these medications pravastatin 40 MG tablet Commonly known as: PRAVACHOL Where to Get Your Medications These medications were sent to [id number] [address] [id number] [address] [facility] [place] [id number] ?? aspirin 81 MG chew tablet ?? atorvastatin 80 MG tablet ?? clopidogrel 75 MG tablet ?? furosemide 20 MG tablet ?? lisinopril 2.5 MG tablet ?? metoprolol succinate XL 24hr 50 MG tablet CONCERNING SYMPTOMS: When to call your healthcare provider: Call your healthcare provider immediately if you have any of the following: ?? - Dizziness - Weakness in arms/legs - Fever of 101??F or higher - Shaking chills - Intractable nausea and vomiting - Severe headache - Confusion/altered mental status - Seizures (convulsions) ?? If you are unable to reach your primary provider, please go to the nearest emergency room or call EMS ([phone]). ?? FOLLOW-UP APPOINTMENTS: You will be called regarding the following appointments: Follow up with your banana handler Dr Jarvis Burdick within 1 week on March 24, 2020. Follow up with your PCP Dr Mckinney in 2 weeks. Follow up with Dr Stewart in EP clinic in 3 months on May at 1pm at [address], [address] [place] [address] . Bring your insurance card, photo ID. Follow up with TAVR heart replacement evaluation with the [facility] structural heart team. It is essential that you keep all of your follow-up appointments and go to your doctors appointments as scheduled. If a follow-up with your primary care provider has not been scheduled, you need to schedule an appointment tofollow-up on your hospitalization within 1-2 weeks. If there is a conflict,please call the clinic ahead of time and reschedule the appointment. ?? Thanks! Your Care Team Internal Medicine Department [address] [id number] Aortic Stenosis WHAT YOU NEED TO KNOW: Aortic stenosis is a condition that makes your aortic valve become narrow and stiff. The narrow, stiff valve causes your heart to work harder to pump blood into the aorta. DISCHARGE INSTRUCTIONS: Call 911 or have someone else call if: ?? You have any of the following signs of a heart attack: ? Squeezing, pressure, or pain in your chest ? You may also have any of the following: ? Discomfort or pain in your back, neck, jaw, stomach, or arm ? Shortness of breath ? Nausea or vomiting ? Lightheadedness or a sudden cold sweat ?? You have any of the following signs of a stroke: ? Numbness or drooping on one side of your face ? Weakness in an arm or leg ? Confusion or difficulty speaking ? Dizziness, a severe headache, or vision loss Seek care immediately if: ?? You have chest pain when you move around. It goes away when you are still. ?? You have increasing shortness of breath. ?? You faint. Contact your banana handler or healthcare provider if: ?? The veins in your neck look swollen or are bulging. ?? You have increased swelling in your legs or ankles. ?? Your heart beats faster than usual. ?? You feel your heart flutter often. ?? You have questions or concerns about your condition or care. Medicines: ?? Medicines may be given to decrease your blood cholesterol levels and decrease your blood pressure. You may also be given medicine to help with swelling. ?? Take your medicine as directed. Contact your healthcare provider if you think your medicine is not helping or if you have side effects. Tell him or her if you are allergic to any medicine. Keep a list of the medicines, vitamins, and herbs you take. Include the amounts, and when and why you take them. Bring the list or the pill bottles to follow-up visits. Carry your medicine list with you in case of an emergency. Manage your symptoms: ?? Limit activities. Your healthcare provider may have you limit strenuous activity. Strenuous activity will make your heart work too hard. Ask your healthcare provider what activities are safe for you to do. Follow up with your healthcare provider or banana handler as directed: You may need to return for more tests to check your heart. Write down your questions so you remember to ask them during your visits. ?? Copyright [employer] 2020 Information is for End User's use only and may not be sold, redistributed or otherwise used for commercial purposes. All illustrations and images included in CareNotes?? are the copyrighted property of [employer] or [employer] The above information is an medicine aide only. It is not intended as medical advice for individual conditions or treatments. Talk to your doctor, nurse or pharmacist before following any medical regimen to see if it is safe and effective for you. Healthy Lifestyle After a Heart Attack CIVIL CLERK: A healthy lifestyle after a heart attack can help you recover and also prevent another heart attack. A healthy lifestyle includes managing health conditions that increase your risk for another heart attack. It also includes eating healthy foods and exercising to give you more energy to do the things you enjoy in your life. Go to cardiac rehabilitation as directed: This is a program run by specialists who will help you safely strengthen your heart and prevent more heart disease. This plan includes exercise, relaxation, stress management, and heart-healthy nutrition. Healthcare providers will also check to make sure any medicines you are taking are working. The plan may also include instructions for when you can drive, return to work, and do other normal daily activities. Do not smoke: Nicotine and other chemicals in cigarettes and cigars can cause lung and heart damage. Ask your healthcare provider for information if you currently smoke and need help to quit. E-cigarettes or smokeless tobacco still contain nicotine. Talk to your healthcare provider before you use these products. Manage other medical conditions: Diabetes and high cholesterol increases your risk for another heart attack and stroke. Talk to your healthcare provider about your management plan. He or she will make a plan that helps you manage your conditions. Follow a heart-healthy diet: A heart-healthy diet is an eating plan low in total fat, unhealthy fats, and sodium (salt). A heart-healthy diet helps decrease your risk for heart disease and stroke. Limit the amount of fat you eat to 25% to 35% of your total daily calories. Your healthcare provider may recommend the DASH (Dietary Approaches to Stop Hypertension) Eating Plan to help lower high blood pressure and LDL (bad) cholesterol. The plan is low in sodium, sugar, unhealthy fats, and total fat. It is high in potassium, calcium, magnesium, and fiber. Ask for more information about this plan. Limit sodium (salt) as directed: Too much sodium can affect your fluid balance. Check labels to find low-sodium or id-[id number]-wmhev foods. Some low-sodium foods use potassium salts for flavor. Too much potassium can also cause health problems. Your healthcare provider will tell you how much sodium andpotassium are safe for you to have in a day. He or she may recommend that you limit sodium to 2,000to 2,300 mg a day. Exercise as directed: Ask your healthcare provider about the best exercise plan for you. Exercise makes your heart stronger, lowers blood pressure, and helps prevent a heart attack. The goal is 30 to60 minutes a day, 5 to 7 days a week. You may have to work up to this goal. Healthcare providers can help you reach this goal, starting in cardiac rehab sessions. Maintain a healthy weight: Extra weight puts stress on your heart and makes it work harder. Ask your healthcare provider how much you should weigh. He or she can help you create a safe weight loss plan if you are overweight. Manage stress: Stress may increase your risk for another heart attack. Learn ways to control stress, such as relaxation, deep breathing, and music. Talk to someone about things that upset you. Check your blood pressure at home: A high blood pressure can increase your risk for another heart attack. Sit and rest for 5 minutes before you take your blood pressure. Extend your arm and support it on a flat surface. Your arm should be at the same level as your heart. Follow the directions that came with your monitor. If possible, take at least 2 readings each time. Take your blood pressure atleast 2 times each day at the same times, such as mornings and evenings. Keep a record of your readings and bring it to your follow-up visits. Ask your healthcare provider what your blood pressure should be. Get a flu vaccine every year as soon as it is available: The vaccine will help prevent the flu. A heart attack will make it harder for you to fight off the flu virus on your own. The flu may also be worse for you than for a person who has not had a heart attack. Ask about other vaccinations you mayneed. Do not take any medicines without talking to your healthcare provider first: Some medicines, such as NSAIDs and hormones, may cause problems if taken with your heart medicines. Always ask your healthcare provider before you take any other medicines. Follow up with your doctor or banana handler as directed: Write down your questions so you remember to ask them during your visits. ?? Copyright [employer] 2020 Information is for End User's use only and may not be sold, redistributed or otherwise used for commercial purposes. All illustrations and images included in CareNotes?? are the copyrighted property of [employer], [employer]. or [employer] The above information is an medicine aide only. It is not intended as medical advice for individual conditions or treatments. Talk to your doctor, nurse or pharmacist before following any medical regimen to see if it is safe and effective for you. Heart Attack WHAT YOU NEED TO KNOW: A heart attack happens when the blood vessels that supply blood to your heart are blocked. This candamage your heart or lead to an abnormal heart rhythm or heart failure. A heart attack is also called a myocardial infarction. DISCHARGE INSTRUCTIONS: Call your local emergency number (911 in the [place]) for any of the following: ?? You have any of the following signs of a heart attack: ? Squeezing, pressure, or pain in your chest ? You may also have any of the following: ?? Discomfort or pain in your back, neck, jaw, stomach, or arm ?? Shortness of breath ?? Nausea or vomiting ?? Lightheadedness or a sudden cold sweat Seek care immediately if: ?? You are tired and cannot think clearly. ?? Your heart is beating faster than usual. ?? You are bleeding from your gums or nose. ?? You see blood in your urine or bowel movements. ?? You urinate less than usual or not at all. ?? You have new or increased swelling in your feet or ankles. Call your doctor or banana handler if: ?? You have trouble taking your heart medicine. ?? You have questions or concerns about your condition or care. Medicines: You may need any of the following: ?? Heart medicines help decrease blood pressure, control your heart rate, and help your heart function better. ?? Nitroglycerin opens the arteries to your heart, increases oxygen levels, and can decrease chest pain. You may get your nitroglycerin as a pill, a patch, or a paste. Ask your healthcare provider orcardiologist how to safely take this medicine. ?? Aspirin helps prevent clots from forming and causing blood flow problems. If healthcare providers want you to take aspirin daily, do not take acetaminophen or ibuprofen instead. Do not take more or less aspirin than healthcare providers say to take. If you are on another blood thinner medicine, ask your healthcare provider or banana handler before you take aspirin for any reason. ?? Antiplatelets , such as aspirin, help prevent blood clots. Take your antiplatelet medicine exactly as directed. These medicines make it more likely for you to bleed or bruise. If you are told to take aspirin, do not take acetaminophen or ibuprofen instead. ?? Blood thinners help prevent blood clots. Clots can cause strokes, heart attacks, and . The following are general safety guidelines to follow while you are taking a blood thinner: ? Watch for bleeding and bruising while you take blood thinners. Watch for bleeding from your gums or nose. Watch for blood in your urine and bowel movements. Use a soft washcloth on your skin, and asoft toothbrush to brush your teeth. This can keep your skin and gums from bleeding. If you shave, use an electric shaver. Do not play contact sports. ? Tell your dentist and other healthcare providers that you take a blood thinner. Wear a bracelet or necklace that says you take this medicine. ? Do not start or stop any other medicines unless your healthcare provider tells you to. Many medicines cannot be used with blood thinners. ? Take your blood thinner exactly as prescribed by your healthcare provider. Do not skip does or take less than prescribed. Tell your provider right away if you forget to take your blood thinner, or if you take too much. ? Warfarin is a blood thinner that you may need to take. The following are things you should be aware of if you take warfarin: ?? Foods and medicines can affect the amount of warfarin in your blood. Do not make major changes to your diet while you take warfarin. Warfarin works best when you eat about the same amount of vitamin K every day. Vitamin K is found in green leafy vegetables and certain other foods. Ask for more information about what to eat when you are taking warfarin. ?? You will need to see your healthcare provider for follow-up visits when you are on warfarin. Youwill need regular blood tests. These tests are used to decide how much medicine you need. ?? Cholesterol medicine decreases cholesterol and the amount of plaque in your blood. ?? Do not take certain medicines without asking your healthcare provider first. These include NSAIDs, herbal or vitamin supplements, or hormones (estrogen or progestin). ?? Take your medicine as directed. Contact your healthcare provider if you think your medicine is not helping or if you have side effects. Tell him or her if you are allergic to any medicine. Keep a list of the medicines, vitamins, and herbs you take. Include the amounts, and when and why you take them. Bring the list or the pill bottles to follow-up visits. Carry your medicine list with you in case of an emergency. Cardiac rehabilitation (rehab) is a program run by specialists who will help you safely strengthen your heart and prevent more heart disease. The plan includes exercise, relaxation, stress management, and heart-healthy nutrition. Healthcare providers will also check to make sure any medicines you take are working. The plan may also include instructions for when you can drive, return to work, and d o other normal daily activities. Manage other health conditions: Diabetes and high cholesterol increases your risk for another heartattack and stroke. Talk to your healthcare provider about your management plan. He or she will makea plan that helps you manage your conditions. Check your blood pressure at home: High blood pressure can increase your risk for another heart attack. Sit and rest for 5 minutes before you take your blood pressure. Extend your arm and support it on a flat surface. Your arm should be at the same level as your heart. Follow the directions that came with your monitor. If possible, take at least 2 readings each time. Take your blood pressure at least 2 times each day at the same times, such as mornings and evenings. Keep a record of your readings and bring it to your follow-up visits. Ask your healthcare provider what your blood pressure should be. Get a flu vaccine every year as soon as it is available: The vaccine will help prevent the flu. A heart attack will make it harder for you to fight off the flu virus on your own. The flu may also be worse for you than for a person who has not had a heart attack. Ask about other vaccinations you mayneed. Lifestyle changes you may need to make after a heart attack: ?? Follow a heart-healthy diet. A heart-healthy diet is an eating plan low in total fat, unhealthy fats, and sodium (salt). A heart-healthy diet helps decrease your risk for heart disease and stroke.Limit the amount of fat you eat to 25% to 35% of your total daily calories. Your healthcare provider may recommend the DASH (Dietary Approaches to Stop Hypertension) Eating Plan to help lower high blood pressure and LDL (bad) cholesterol. The plan is low in sodium, sugar, unhealthy fats, and total fat. It is high in potassium, calcium, magnesium, and fiber. Ask for more information about this plan. ?? Limit sodium (salt) as directed. Too much sodium can affect your fluid balance. Check labels to find low-sodium or xh-safx-[id number] foods. Some low-sodium foods use potassium salts for flavor. Too much potassium can also cause health problems. Your healthcare provider will tell you how much sodium and potassium are safe for you to have in a day. He or she may recommend that you limit sodium to 2,300 mg a day. ?? Do not smoke. Nicotine and other chemicals in cigarettes and cigars can cause lung and heart damage. Ask your healthcare provider for information if you currently smoke and need help to quit. E-cigarettes or smokeless tobacco still contain nicotine. Talk to your healthcare provider before you use these products. ?? Exercise as directed. Ask your healthcare provider about the best exercise plan for you. Exercise makes your heart stronger, lowers blood pressure, and helps prevent a heart attack. The goal is 30to 60 minutes a day, 5 to 7 days a week. You may have to work up to this goal. Healthcare providerscan help you reach this goal, starting in cardiac rehab sessions. ?? Maintain a healthy weight. Ask your healthcare provider how much you should weigh. He or she canhelp you create a safe weight loss plan if you are overweight. ?? Manage stress. Stress may increase your risk for another heart attack. Learn ways to control stress, such as relaxation, deep breathing, and music. Talk to someone about things that upset you. Follow up with your healthcare provider or banana handler within 14 days or as directed: Write down your questions so you remember to ask them during your visits. ?? Copyright [employer] 2020 Information is for End User's use only and may not be sold, redistributed or otherwise used for commercial purposes. All illustrations and images included in CareNotes?? are the copyrighted property of [employer] or [employer] The above information is an medicine aide only. It is not intended as medical advice for individual conditions or treatments. Talk to your doctor, nurse or pharmacist before following any medical regimen to see if it is safe and effective for you. Heart Attack WHAT YOU NEED TO KNOW: A heart attack happens when the blood vessels that supply blood to your heart are blocked. This candamage your heart or lead to an abnormal heart rhythm or heart failure. A heart attack is also called a myocardial infarction. WHILE YOU ARE HERE: Informed consent is a legal document that explains the tests, treatments, or procedures that you may need. Informed consent means you understand what will be done and can make decisions about what you want. You give your permission when you sign the consent form. You can have someone sign this formfor you if you are not able to sign it. You have the right to understand your medical care in words you know. Before you sign the consent form, understand the risks and benefits of what will be done.Make sure all your questions are answered. Activity: Do not get out of bed until your healthcare provider says it is okay. Call a healthcare provider before you get out of bed. Do not try to get out of bed by yourself. Tell your healthcare provider if you feel weak, dizzy, or like you are going to faint. You may need extra oxygen if your blood oxygen level is lower than it should be. You may get oxygenthrough a mask placed over your nose and mouth or through small tubes placed in your nostrils. Ask your healthcare provider before you take off the mask or oxygen tubing. You may need to wear pressure stockings. The stockings are tight and put pressure on your legs. This improves blood flow and helps prevent clots. Heart medicines: ?? Nitroglycerin opens the arteries to your heart so the heart gets more oxygen. Nitroglycerin can be given in an IV, by mouth, or as a patch or paste. ?? Angiotensin-converting enzyme inhibitors help relax your blood vessels so your heart can get theblood it needs. ?? Aldosterone antagonists help remove extra fluid from your body and protect your heart from more damage. ?? Beta-blockers decrease your blood pressure and help you have a steady and regular heartbeat. ?? Calcium channel blockers slow your heartbeat, open up small blood vessels, and decrease your blood pressure. Other medicines: ?? Aspirin may be given to help thin your blood to keep clots from forming. This medicine makes it more likely for you to bleed or bruise. ?? Clot busters help break apart blood clots to increase blood flow to your heart. It is given in your IV and may be given at the same time as other blood thinners. This medicine may decrease the amount of damage to your heart. You will bleed and bruise more easily while you are getting this medicine. ?? Pain medicine may be given. Do not wait until the pain is severe before you ask for more medicine. ?? Cholesterol medicine decreases the amount of cholesterol and plaque in your blood. Monitoring: ?? Pulse oximetry measures the amount of oxygen in your blood. ?? An EKG records your heart rhythm and how fast your heart beats. It is used to check for damage to your heart. ?? An arterial line is a tube that is placed into an artery, usually in the wrist or groin. An arterial line may be used to measure your blood pressure or to take a blood sample. ?? A CVP line , or central line, is a catheter placed into a large blood vessel to give you medicines or fluids. It may also be hooked to a monitor to take pressure readings. ?? A pulmonary artery catheter is a balloon-tipped catheter (thin tube) inserted through a vein in your neck or groin. It measures the pressure in your heart and lungs to show healthcare providers how your heart responds to heart medicine. Tests: ?? Blood tests will check for heart damage, and test your kidney function. They may also show how much oxygen and carbon dioxide is in your blood. ?? An echocardiogram is a type of ultrasound. Sound waves are used to show the structure and function of your heart. ?? Angiography is a test used to look for blockage in your coronary arteries, such as plaque or blood clots. A thin tube called a catheter is placed into an artery, usually in your groin. Contrast liquid is put through the catheter, and x-ray pictures are taken of the blood flow. Tell healthcare providers if you have ever had an allergic reaction to contrast liquid. ?? A stress test helps healthcare providers see the changes that take place in your heart while it is under stress. Healthcare providers may place stress on your heart with exercise or medicine. Ask your healthcare provider for more information about this test. Treatment: ?? Angioplasty is a procedure to open an artery blocked by plaque. A small tube with a balloon on the end is threaded into the blocked artery. After the tube is in the artery, the balloon is filled with liquid. As the balloon fills, it presses the plaque against the artery wall so blood can flow through the artery more easily. ?? Coronary intravascular stent placement is also called coronary artery stenting. The stent is a small mesh wire that is inserted into an artery to keep it open so blood can flow through it. When the stent is expanded, it attaches to the artery wall and keeps the artery open. ?? Intra-aortic balloon pump (IABP) is a catheter that is inserted into a blood vessel in your groin. It has a balloon on the end that rests just outside of your heart. This balloon inflates and deflates in time with your heartbeat. An IABP can help increase blood flow through your body, while decreasing how hard your heart has to work. It may also help increase blood flow to your heart. You willneed to stay in bed with your leg straight while you have an IABP. ?? An implanted cardioverter defibrillator (ICD) is a small device that monitors your heart rate and rhythm. If your ICD senses that your heart is not beating correctly, it will give it a small electrical shock. This helps your heart start beating normally again. ?? A pacemaker is a machine that helps your heart beat at a normal speed and in a regular rhythm. The pacemaker can read your heart rhythm. If your heart does not beat as it should, the pacemaker sends small electric signals to your heart. You may have a temporary pacemaker, or it may be permanent. ?? Coronary artery bypass graft (CABG) surgery is also known as heart bypass surgery or open-heart surgery. CABG can improve blood flow to your heart by sending blood around a blocked part of an artery. It may also decrease your risk for a heart attack in the future. RISKS: Damage to your heart can lead to an abnormal heart rhythm. You may go into cardiogenic shock. This means your heart cannot get enough blood to your organs. You may develop heart failure. The damage from the heart attack may cause your heart to rupture. A heart attack can be life-threatening. CARE AGREEMENT: You have the right to help plan your care. Learn about your health condition and how it may be treated. Discuss treatment options with your healthcare providers to decide what care you want to receive. You always have the right to refuse treatment. ?? Copyright [employer] Information is for End User's use only and may not be sold, redistributed or otherwise used for commercial purposes. All illustrations and images included in CareNotes?? are the copyrighted property of [employer] or [employer] The above information is an medicine aide only. It is not intended as medical advice for individual conditions or treatments. Talk to your doctor, nurse or pharmacist before following any medical regimen to see if it is safe and effective for you. Heart Failure WHAT YOU NEED TO KNOW: Heart failure (HF) is a condition that does not allow your heart to fill or pump properly. Not enough oxygen in your blood gets to your organs and tissues. Fluid may not move through your body properly. Fluid builds up and causes swelling and difficulty breathing. This is known as congestive heart failure. HF may start in the left or right ventricle. HF is often caused by damage or injury to your heart. The damage may be caused by other heart problems, diabetes, or high blood pressure. The damage may have also been caused by an infection. HF is a long- term condition that tends to get worse over time. It is important to manage your health to improve your quality of life. DISCHARGE INSTRUCTIONS: Call your local emergency number (911 in the ) if: ?? You have any of the following signs of a heart attack: ? Squeezing, pressure, or pain in your chest ? You may also have any of the following: ?? Discomfort or pain in your back, neck, jaw, stomach, or arm ?? Shortness of breath ?? Nausea or vomiting ?? Lightheadedness or a sudden cold sweat Call your doctor if: ?? Your heartbeat is fast, slow, or uneven all the time. ?? You have symptoms of worsening HF: ? Shortness of breath at rest, at night, or that is getting worse in any way ? Weight gain of 3 or more pounds (1.4 kg) in a day, or more than your healthcare provider says is okay ? More swelling in your legs or ankles ? Abdominal pain or swelling ? More coughing ? Loss of appetite ? Feeling tired all the time ?? You feel hopeless or depressed, or you have lost interest in things you used to enjoy. ?? You often feel worried or afraid. ?? You have questions or concerns about your condition or care. Medicines: ?? Medicines may be given to help regulate your heart rhythm and lower your blood pressure. You mayalso need medicines to help decrease extra fluids. Medicines, such as NSAIDs, may be stopped because they are causing your HF to become worse. ?? Take your medicine as directed. Contact your healthcare provider if you think your medicine is not helping or if you have side effects. Tell him or her if you are allergic to any medicine. Keep a list of the medicines, vitamins, and herbs you take. Include the amounts, and when and why you take them. Bring the list or the pill bottles to follow-up visits. Carry your medicine list with you in case of an emergency. Follow up with your doctor within 7 days and as directed: You may need to return for other tests. You may need home health care. A healthcare provider will monitor your vital signs, weight, and make sure your medicines are working. Write down your questions so you remember to ask them during your visits. Go to cardiac rehab if directed: Cardiac rehab is a program run by specialists who will help you safely strengthen your heart. In the program you will learn about exercise, relaxation, stress management, and heart-healthy nutrition. Manage HF: ?? Do not smoke. Nicotine and other chemicals in cigarettes and cigars can cause lung and heart damage. Ask your healthcare provider for information if you currently smoke and need help to quit. E-cigarettes or smokeless tobacco still contain nicotine. Talk to your healthcare provider before you use these products. ?? Do not drink alcohol or use illegal drugs. Alcohol and drugs can increase your risk for high blood pressure, diabetes, and coronary artery disease. ?? Eat heart-healthy foods and limit sodium (salt). Eat more fresh fruits and vegetables. Eat fewercanned and processed foods. Replace butter and margarine with heart-healthy oils such as olive oil and canola oil. Other heart-healthy foods include walnuts, whole-grain breads, low-fat dairy products, beans, and lean meats. Fatty fish such as salmon and tuna are also heart healthy. Ask how much salt you can eat each day. ?? Manage any chronic health conditions you have. These include high blood pressure, diabetes, obesity, high cholesterol, metabolic syndrome, and COPD. You will have fewer symptoms if you manage these health conditions. Follow your healthcare provider's recommendations and follow up with him or herregularly. ?? Drink liquids as directed. You may need to limit the amount of liquids you drink if you have fluid buildup. Ask how much liquid to drink each day and which liquids are best for you. ?? Maintain a healthy weight. Being overweight can increase your risk for high blood pressure, diabetes, and coronary artery disease. These conditions can make your symptoms worse. Ask your healthcare provider how much you should weigh. Ask him or her to help you create a weight loss plan if you are overweight. ?? Stay active. Activity can help keep your symptoms from getting worse. Walking is a type of physical activity that helps maintain your strength and improve your mood. Physical activity also helps you manage your weight. Work with your healthcare provider to create an exercise plan that is right for you. ?? Weigh yourself every morning. Use the same scale, in the same spot. Do this after you use the bathroom, but before you eat or drink. Wear the same type of clothing each time. Write down your weight and call your healthcare provider if you have a sudden weight gain. Swelling and weight gain are signs of fluid buildup. ?? Get vaccines as directed. Get a flu shot every year. You may also need the pneumonia vaccine. The flu and pneumonia can be severe for a person who has HF. Vaccines protect you from these infections. Join a support group: HF can be difficult to manage. It may be helpful to talk with others who haveHF. You may learn how to better manage your condition or get emotional support. For more information: ?? [employer] [facility] [address] [place] [phone] Phone: Web Address: http://www.heart.org ?? Copyright [employer] 2019 Information is for End User's use only and may not be sold, redistributed or otherwise used for commercial purposes. All illustrations and images included in CareNotes?? are the copyrighted property of [employer] or [employer] The above information is an medicine aide only. It is not intended as medical advice for individual conditions or treatments. Talk to your doctor, nurse or pharmacist before following any medical regimen to see if it is safe and effective for you. Left-sided and Right-sided Heart Failure WHAT YOU NEED TO KNOW: Heart failure (HF) is a condition that does not allow your heart to fill or pump properly. HF may begin on the left or right side of the heart. If one side does not work properly, the other side has to work harder to function. Over time, HF affects both sides of the heart. HF is a long-term condition that tends to get worse over time. It is important to manage your health to improve your quality o f life. DISCHARGE INSTRUCTIONS: Call your local emergency number (911 in the ) if: ?? You have any of the following signs of a heart attack: ? Squeezing, pressure, or pain in your chest ? You may also have any of the following: ?? Discomfort or pain in your back, neck, jaw, stomach, or arm ?? Shortness of breath ?? Nausea or vomiting ?? Lightheadedness or a sudden cold sweat Call your doctor if: ?? Your heartbeat is fast, slow, or uneven all the time. ?? You have symptoms of worsening HF: ? Shortness of breath at rest, at night, or that is getting worse in any way ? Weight gain of 3 or more pounds (1.4 kg) in a day, or more than your healthcare provider says is okay ? More swelling in your legs or ankles ? Abdominal pain or swelling ? More coughing ? Loss of appetite ? Feeling tired all the time ?? You feel hopeless or depressed, or you have lost interest in things you used to enjoy. ?? You often feel worried or afraid. ?? You have questions or concerns about your condition or care. Medicines: ?? Medicines may be given to help regulate your heart rhythm and lower your blood pressure. You mayalso need medicines to help decrease extra fluid. Medicines, such as NSAIDs, may be stopped if theyare making your HF worse. ?? Take your medicine as directed. Contact your healthcare provider if you think your medicine is not helping or if you have side effects. Tell him or her if you are allergic to any medicine. Keep a list of the medicines, vitamins, and herbs you take. Include the amounts, and when and why you take them. Bring the list or the pill bottles to follow-up visits. Carry your medicine list with you in case of an emergency. Follow up with your doctor or banana handler within 7 days and as directed: You may need to return for other tests. You may need home health care. A healthcare provider will monitor your vital signs, weight, and make sure your medicines are working. Write down your questions so you remember to ask them during your visits. Go to cardiac rehab if directed: Cardiac rehab is a program run by specialists who will help you safely strengthen your heart. In the program you will learn about exercise, relaxation, stress management, and heart-healthy nutrition. Manage HF: Your quality of life may improve with treatment and the following: ?? Do not smoke. Nicotine and other chemicals in cigarettes and cigars can cause lung and heart damage. Ask your healthcare provider for information if you currently smoke and need help to quit. E-cigarettes or smokeless tobacco still contain nicotine. Talk to your healthcare provider before you use these products. ?? Do not drink alcohol or use illegal drugs. Alcohol and drugs can increase your risk for chronic conditions that can make HF worse. ?? Eat heart-healthy foods and limit sodium (salt). Eat more fresh fruits and vegetables. Eat fewercanned and processed foods. Replace butter and margarine with heart-healthy oils such as olive oil and canola oil. Other heart-healthy foods include walnuts, whole-grain breads, low-fat dairy products, beans, and lean meats. Fatty fish such as salmon and tuna are also heart healthy. Ask how much salt you can eat each day. Your healthcare provider may recommend the DASH eating plan. ?? Manage any chronic health conditions you have. Follow your healthcare provider's recommendationsand follow up with him or her regularly. ?? Drink liquids as directed. You may need to limit the amount of liquids you drink if you have fluid buildup. Ask how much liquid to drink each day and which liquids are best for you. ?? Maintain a healthy weight. Being overweight can increase your risk for high blood pressure, diabetes, and coronary artery disease. These conditions can make your symptoms worse. Ask your healthcare provider how much you should weigh. Ask him or her to help you create a weight loss plan if you are overweight. ?? Stay active. Activity can help keep your symptoms from getting worse. Walking is a type of physical activity that helps maintain your strength and improve your mood. Physical activity also helps you manage your weight. Work with your healthcare provider to create an exercise plan that is right for you. ?? Weigh yourself every morning. Use the same scale, in the same spot. Do this after you use the bathroom, but before you eat or drink. Wear the same type of clothing each time. Write down your weight and call your healthcare provider if you have a sudden weight gain. Swelling and weight gain are signs of fluid buildup. ?? Get vaccines as directed. Get a flu shot every year. You may also need the pneumonia vaccine. The flu and pneumonia can be severe for a person who has HF. Vaccines protect you from these infections. Join a support group: HF can be difficult to manage. It may be helpful to talk with others who haveHF. You may learn how to better manage your condition or get emotional support. For more information: ?? [employer] [facility] [address] [place] [phone] Phone: Web Address: http://www.heart.org ?? Copyright [employer] 2019 Information is for End User's use only and may not be sold, redistributed or otherwise used for commercial purposes. All illustrations and images included in CareNotes?? are the copyrighted property of [employer] or [employer] The above information is an medicine aide only. It is not intended as medical advice for individual conditions or treatments. Talk to your doctor, nurse or pharmacist before following any medical regimen to see if it is safe and effective for you. Heart Attack WHAT YOU NEED TO KNOW: What is a heart attack? A heart attack happens when the blood vessels that supply blood to your heart are blocked. This can damage your heart or lead to an abnormal heart rhythm or heart failure. A heart attack is also called a myocardial infarction. What are the signs and symptoms of a heart attack? ?? Chest pain, tightness, or heaviness that can last 30 minutes or longer ?? Pressure, crushing, squeezing, or burning in your chest ?? Discomfort that spreads to your neck, jaw, shoulders, back, or arms ?? Heartburn, abdominal pain, nausea, or vomiting ?? Feeling weak, dizzy, or like you are going to faint ?? Trouble catching your breath or taking a deep breath ?? Feeling cold and sweaty ?? Fast heartbeat ?? You may not have typical symptoms if you are a woman or an older adult, or have diabetes or heart failure. You may only have shortness of breath and no other symptoms. You may have no symptoms at all. What is the difference between angina and a heart attack? Angina is chest pain, tightness, or discomfort that comes and goes. It gets worse with activity or stress. It gets better with rest, medicinecalled nitroglycerin, or both. Angina does not damage the heart like a heart attack does. Angina may be a warning sign that you are at risk for a heart attack. Ask your healthcare provider for more information on angina. What causes a heart attack? ?? Plaque , also called fatty deposits, can build up inside one or more of your coronary arteries. This can cause the arteries to become narrow and slow or block the blood flow. Small pieces can alsobreak off and block blood flow. ?? Blood clots may form on each side of the plaque. This can slow or stop blood flow to your heart. ?? Heart spasm is when a coronary artery suddenly tightens and stops blood flow to part of the heart. What increases my risk for a heart attack? ?? High cholesterol, diabetes, or high blood pressure ?? Smoking cigarettes or chewing tobacco ?? A family history of heart attack ?? Being a man older than 55 ?? Being a woman who has gone through menopause ?? Use of illegal drugs such as cocaine or methamphetamines ?? Obesity or being overweight for several years ?? A lack of physical activity, especially sitting for long periods every day How is a heart attack diagnosed? Your healthcare provider will ask when your chest pain started, what it feels like. Tell the provider if anything makes the pain better or worse. He or she will ask if you took nitroglycerin or other medicines. He or she will ask you about your medical history and if you have had these signs and symptoms before. You may need the following tests: ?? Blood tests can help healthcare providers know if your heart has been damaged. ?? X-ray pictures may show an enlarged heart or fluid in your lungs. ?? An EKG records your heart rhythm and how fast your heart beats. It is used to check for damage to your heart. ?? An echocardiogram is a type of ultrasound. Sound waves are used to show the structure and function of your heart. ?? Angiography is a test used to look for blockage in your coronary arteries, such as plaque or blood clots. A thin tube called a catheter is placed into an artery, usually in your groin. Contrast liquid is put through the catheter, and x-ray pictures are taken of the blood flow. Tell healthcare providers if you have ever had an allergic reaction to contrast liquid. How is a heart attack treated? ?? Medicines may be given to help the coronary arteries open so your heart can get the blood it needs. Medicine may also help decrease pain, blood pressure, or control your heart rate. You may also need medicine to help thin your blood to keep clots from forming. This medicine makes it more likely for you to bleed or bruise. After a heart attack, you may also be given medicine to decrease the amount of cholesterol and plaque in your blood. ? Do not take certain medicines without asking your healthcare provider first. These include NSAIDs, herbal or vitamin supplements, or hormones (estrogen or progestin). ?? Angioplasty is a procedure to open an artery blocked by plaque. A small tube with a balloon on the end is threaded into the blocked artery. After the tube is in the artery, the balloon is filled with liquid. As the balloon fills, it presses the plaque against the artery wall so blood can flow through the artery more easily. ?? Coronary intravascular stent placement is also called coronary artery stenting. The stent is a small mesh wire that is inserted into an artery to keep it open so blood can flow through it. ?? Coronary artery bypass graft (CABG) surgery is also known as heart bypass surgery or open heart surgery. CABG can improve blood flow to the heart by sending blood around a blocked part of an artery. This surgery may also decrease your risk for a heart attack in the future. What should I do if I think I am having a heart attack? If you have chest pain for 2 to 3 minutes, stop what you are doing. Call 911 if your chest pain does not go away or gets worse within 5 minutes. Sit or lie down while you wait for the ambulance. What can I do to manage my health? ?? Check your blood pressure at home. High blood pressure can lead to a heart attack. Sit and rest for 5 minutes before you take your blood pressure. Extend your arm and support it on a flat surface.Your arm should be at the same level as your heart. Follow the directions that came with your monitor. If possible, take at least 2 readings each time. Take your blood pressure at least 2 times each day at the same times, such as mornings and evenings. Keep a record of your readings and bring it toyour follow-up visits. Ask your healthcare provider what your blood pressure should be. ?? Get a flu vaccine every year as soon as it is available. The vaccine will help prevent the flu. A heart attack will make it harder for you to fight off the flu virus on your own. The flu may also be worse for you than for a person who has not had a heart attack. Ask about other vaccinations you may need. What lifestyle changes may I need to make after a heart attack? ?? Do not smoke. Nicotine and other chemicals in cigarettes and cigars can cause lung and heart damage. Ask your healthcare provider for information if you currently smoke and need help to quit. E-cigarettes or smokeless tobacco still contain nicotine. Talk to your healthcare provider before you use these products. ?? Follow a heart-healthy diet. A heart-healthy diet is an eating plan low in total fat, unhealthy fats, and sodium (salt). A heart-healthy diet helps decrease your risk for heart disease and stroke.Limit the amount of fat you eat to 25% to 35% of your total daily calories. Your healthcare provider may recommend the DASH (Dietary Approaches to Stop Hypertension) Eating Plan to help lower high blood pressure and LDL (bad) cholesterol. The plan is low in sodium, sugar, unhealthy fats, and total fat. It is high in potassium, calcium, magnesium, and fiber. Ask for more information about this plan. ?? Limit sodium (salt) as directed. Too much sodium can affect your fluid balance. Check labels to find low-sodium or xj-egaz-hxtot foods. Some low-sodium foods use potassium salts for flavor. Too much potassium can also cause health problems. Your healthcare provider will tell you how much sodium and potassium are safe for you to have in a day. He or she may recommend that you limit sodium to 2,300 mg a day. ?? Exercise as directed. Ask your healthcare provider about the best exercise plan for you. Exercise makes your heart stronger, lowers blood pressure, and helps prevent a heart attack. The goal is 30to 60 minutes a day, 5 to 7 days a week. You may have to work up to this goal. Healthcare providerscan help you reach this goal, starting in cardiac rehab sessions. ?? Maintain a healthy weight. Ask your healthcare provider how much you should weigh. He or she canhelp you create a safe weight loss plan if you are overweight. ?? Manage stress. Stress may increase your risk for a heart attack. Learn ways to control stress, such as relaxation, deep breathing, and music. Talk to someone about things that upset you. Call your local emergency number (911 in the ) for any of the following: ?? You have any of the following signs of a heart attack: ? Squeezing, pressure, or pain in your chest ? You may also have any of the following: ?? Discomfort or pain in your back, neck, jaw, stomach, or arm ?? Shortness of breath ?? Nausea or vomiting ?? Lightheadedness or a sudden cold sweat When should I seek immediate care? ?? You are tired and cannot think clearly. ?? Your heart is beating faster than usual. ?? You are bleeding from your gums or nose. ?? You see blood in your urine or bowel movements. ?? You urinate less than usual or not at all. ?? You have new or increased swelling in your feet or ankles. When should I call my doctor or banana handler? ?? You have trouble taking your heart medicine. ?? You have questions or concerns about your condition or care. CARE AGREEMENT: You have the right to help plan your care. Learn about your health condition and how it may be treated. Discuss treatment options with your healthcare providers to decide what care you want to receive. You always have the right to refuse treatment. The above information is an medicine aide only. It is not intended as medical advice for individual conditions or treatments. Talk to your doctor, nurse or pharmacist before following any medical regimen to see if it is safe and effective for you. ?? Copyright [employer] 2019 Information is for End User's use only and may not be sold, redistributed or otherwise used for commercial purposes. All illustrations and images included in CareNotes?? are the copyrighted property of [employer] or [employer] Wearable Cardioverter Defibrillator WHAT YOU NEED TO KNOW: What is a wearable cardioverter defibrillator (WCD)? A WCD is a vest with a small monitor. The vestcontains electrodes, or pads, that can shock your heart if the monitor detects a life-threatening arrhythmia. An arrhythmia is an irregular heart rate. An arrhythmia may cause your heart to suddenly stop beating effectively. A WCD can give a shock to your heart to make it start beating effectively again. How does a WCD work? ?? The electrodes, or pads, are located inside of the vest. They will rest against your skin when you put on the vest. The electrodes are attached to the monitor by a wire. The monitor can be worn onyour belt or a shoulder strap. Four electrodes will continuously monitor your heart rate and rhythmand send information to the monitor. If the monitor detects an arrhythmia, it will send a shock to your heart through 3 defibrillator electrodes. Your monitor will display and record all the activityof your heart, including any arrhythmia and shocks. You may be able to send this information through a wireless signal to your healthcare provider. He may use this information to change your medicines or decide if you need other treatment. ?? If you have a life-threatening arrhythmia or your heart stops beating, you will not be awake. Ifyou are awake and your monitor vibrates or alarms that you have an arrhythmia, you will need to push a response button on the monitor. This button will prevent you from getting a shock when you do not need one. Your monitor may detect an arrhythmia when there is not one. This can happen if your belt is not worn correctly, or the electrodes are not touching your skin the right way. It can also happen when the electrodes sense your movements instead of your heart rate and rhythm. ?? If you lose consciousness and are having a true arrhythmia, your WCD will shock your heart. The monitor will tell anyone who is nearby not to touch you. This is to prevent the person from also getting shocked. The monitor will tell the person to call 911. Your WCD will deliver shocks until the monitor detects a normal heart rhythm and rate. Why might I need to wear a WCD? Anyone who is at risk for a sudden cardiac arrest (SCA) may need towear a WCD. A SCA is when your heart suddenly stops beating. You may be at risk for SCA if you havecardiomyopathy, heart failure, or had a recent heart attack. It is usually worn by someone who is waiting to have an implantable cardioverter defibrillator (ICD) placed. How can I care for myself while I have a WCD? ?? Wear your WCD at all times except for bathing. An arrhythmia can happen at any time. Do not swimwith your WCD. ?? Position your WCD as directed. Place the vest correctly around your chest and back. Change the length of the vest's straps so that the electrodes are making good contact with your skin. Ask your healthcare provider if it is okay to put lotions or powders on your skin. Ask your healthcare provider for more information about how to wear your WCD. ?? Change the batteries as directed. Most batteries only last for 24 hours. Remove and replace the battery of your WCD as directed. ?? Tell your friends or family how the WCD works. Tell your family members or friends not to push the response button if you lose consciousness. This may prevent you from getting a shock when you need one. ?? Stay away from magnets or machines with electric tiwari. Ask your healthcare provider before youhave an MRI. Some MRI machines may be safe to use with your WCD. Avoid leaning into a car engine ordoing welding. These things can interfere with how your WCD works. ?? Keep your cell phone and MP3 player away from your WCD. Do not keep your cell phone or MP3 player in your breast pocket. Ask your healthcare provider about how to safely use your cell phone and MP3 player with your WCD. Call 911 or have someone else call 911 for any of the following: ?? You have any of the following signs of a heart attack: ? Squeezing, pressure, or pain in your chest ? You may also have any of the following: ?? Discomfort or pain in your back, neck, jaw, stomach, or arm ?? Shortness of breath ?? Nausea or vomiting ?? Lightheadedness or a sudden cold sweat ?? You become weak, dizzy, or faint. ?? You have trouble breathing. ?? You lose consciousness. When should I seek immediate care? ?? You feel 1 or more shocks from your WCD. ?? Your monitor will not turn on. When should I contact my healthcare provider? ?? You have a fever. ?? Your feet or ankles swell. ?? You are sad or anxious and find it hard to do your usual activities. ?? You have questions or concerns about your condition or care. CARE AGREEMENT: You have the right to help plan your care. Learn about your health condition and how it may be treated. Discuss treatment options with your healthcare providers to decide what care you want to receive. You always have the right to refuse treatment. The above information is an medicine aide only. It is not intended as medical advice for individual conditions or treatments. Talk to your doctor, nurse or pharmacist before following any medical regimen to see if it is safe and effective for you. ?? Copyright [employer] 2019 Information is for End User's use only and may not be sold, redistributed or otherwise used for commercial purposes. All illustrations and images included in CareNotes?? are the copyrighted property of [employer] or [employer] documented in this encounter Medications at Time of Discharge Medication Sig Dispensed Refills Start Date End Date aspirin (ASPIRIN) 81 MG chew tablet Take 1 tablet by mouth once daily 30 tablet 11 03/19/2020 clopidogrel (PLAVIX) 75 MG tablet Take 1 tablet by mouth once daily 30 tablet 11 03/19/2020 furosemide (LASIX) 20 MG tablet Take 1 tablet by mouth once daily 30 tablet 3 03/19/2020 metFORMIN CR 24hr modified (GLUMETZA) 1000 MG (MOD) tablet Take 1,000 mg by mouth 2 times daily tamsulosin (FLOMAX) 0.4 MG capsule Take 0.4 mg by mouth once daily At the same time every day after a meal. atorvastatin (LIPITOR) 80 MG tablet Take 1 tablet by mouth at bedtime 30 tablet 11 03/19/2020 04/25/2020 doxazosin (CARDURA) 4 MG tablet Take 8 mg by mouth once daily 12/31/2019 04/25/2020 Doxazosin Mesylate 8 MG 04/25/2020 finasteride (PROSCAR) 5 MG tablet Take 5 mg by mouth once daily 04/25/2020 glimepiride (AMARYL) 2 MG tablet Take 2 mg by mouth daily with breakfast 04/29/2020 lisinopril (PRINIVIL; ZESTRIL) 2.5 MG tablet Take 1 tablet by mouth once daily 30 tablet 3 03/19/2020 06/24/2020 metoprolol succinate XL 24hr (TOPROL XL) 50 MG tablet Take 1 tablet by mouth once daily 30 tablet 3 03/19/2020 04/25/2020 documented as of this encounter Progress Notes * Yaquelin Medina RN - 03/19/2020 7:53 PM CDT Discharge To Home Discharge Date: 03/19/2020 Transportation at time of Discharge: private car Family Member who will transport: patient arranged Comments: patient discharged with Life Vest. No further case management needs at this time. Yaquelin Medina, MSN, clinical services professional Office:[phone] 03/20/2020 * Kaylee Mccain APRN-CNP - 03/19/2020 6:06 PM CDT Structural Heart Progress Note Patient seen and examined by Dr. Dumont and Dr. Cleveland previously on 03/18. Work up for TAVR started in hospital. Dr. Perez, dentist to examine patient on morning of 03/20. Panorex is completed. CT scan completed 03/19. Will upload for measurement. KCCQ, EFT, and 5 meter gait test completed while in patient 03/19. See previous notes. Plan to discuss patient in multidisciplinary TAVR meeting nextweek. OLIVIA Milsl * Yaquelin Medina RN - 03/19/2020 3:15 PM CDT Patient with discharge orders. He can not leave without life vest being applied. Life vest should be here about 5:30 pm and patient's will pick him up or he will get a cab voucher provided by CSN. Patient and CSN aware. Yaquelin Medina, MSN, clinical services professional Office:[phone] 03/19/2020 * Roselyn Wall RN - 03/19/2020 12:44 PM CDT Pt going to CTA. * Kaylee Mccain APRN-CNP - 03/19/2020 12:03 PM CDT 5 Meter Gait Test Testing completed while patient in clinic on 03/19/20. Assitance: none Walk Time. First Trial: 4.68 seconds Walk Time. Second Trial: 4.28 seconds Walk Time. Third Trial: 4.17 seconds Average: 4.38 Procedure observed and timed by: OLIVIA Mills * Kaylee Mccain APRN-CNP - 03/19/2020 11:54 AM CDT Essential Frailty 1 out of 5 The 1 - year risk of mortality is 5.4% Chair raises: 14.3 seconds Cognition: not cognitively impaired Hemoglobin: 119 g/L Albumin: 37 g/L OLIVIA Mills * Kaylee Mccain APRN-CNP - 03/19/2020 11:49 AM CDT [place] Cardiomyopathy Questionnaire (KCCQ-12) Completed with patient 03/19/20. 1. Heart Failure affects different people in [...] all Limited C. Hurrying or jogging - 6 - Limited for other reasons or did not do the activity 2. Over the past 2 weeks, how [...] your ability to do what you wanted? 6 - Less than once a week 1 0 2 16.667 3 33.333 4 50 5 66.667 6 83.333 7 100 5. Over the past 2 weeks, on average, how many times have you been forced to sleep sitting up in a chair or with at least 3 pillows to prop you up because of shortness of breath? 4 - Less than once aweek 1 0 2 25 3 50 4 [...] now, how would you feel about this? 2 - Mostly dissatisfied 8. How much does your heart failure affect your lifestyle? Please indicate how your heart failure may have limited your participation in the following activities over the past 2 weeks. A. Hobbies, recreational activities - 2 - Limited quite a bit B. Working or doing respiratory therapy director - 5 - Did not limit at all C. Visiting family or friends out of your home - 6 - Does not apply or did not do for other reasons KCCQ: 78.645 PL: 100 SF: 89.58 QL: 62.5 SL: 62.5 OLIVIA Mills * Sudha Monreal RN - 03/19/2020 2:41 AM CDT Problem: Fall Risk Goal: Fall risk and fall related injury risk are minimized Description: Mr. Amador will remain free of falls by calling for assistance with ambulation. Outcome: Ongoing Problem: General Goal: LTG - Patient will Description: Pt will complete 2 steps independently after surgery. If no surgery, pt may D/C home. Outcome: Ongoing Problem: Hemodynamic Status/Cardiac Output Description: Mr. Amador will be monitored on telemetry continuously and vitals monitored every four hours and as needed. Goal: Patient has stable vital signs and fluid balance Outcome: Ongoing Mr. Amador is using his call light appropriately and is independently using the bathroom * Myriam Guerra - 03/18/2020 8:05 PM CDT Pt talked about the surgeries he just went through. He also talked quite a bit about the Word of God and how important that is to him. [facility] Shift Lead provided ministry of presence and active listening. Pastoral Care remains available 13/12 and can be reached by phone ([phone]) and page ([phone]). * Elif Steele MD - 03/18/2020 6:13 PM CDT Cardiac Cath Fellow note: TR band loosened and removed without complications. 3 cc of air removed every 5 minutes over 30 minutes and TR band removed. Patient tolerated well without complaints. No bleeding, ecchymosis, hematoma, neurologic deficit. Warm extremity with 2+ pulse distal to arteriotomy site. Clear tegaderm dressing placed over the arteriotomy site. Continue post cath care. Please call with questions or concerns. Site evaluated by RN. * Feliciano Tsai RN - 03/18/2020 2:44 PM CDT SBAR to 7S RN. Will finish for additional questions at bedside. Patient to floor on transport monitor. * Feliciano Tsai RN - 03/18/2020 1:20 PM CDT [id number] * Feliciano Tsai RN - 03/18/2020 12:49 PM CDT Time out complete * Obdulia Ivory RN - 03/18/2020 11:41 AM CDT Goals: Complete cardiac cath, prevent falls, monitor vital signs * Galindo Reyes MD - 03/18/2020 8:41 AM CDT MEDICINE PROGRESS NOTE Patient: Padmini Amador (:1940) Room: [facility]/ Date of admission: 03/14/2020 No of days in hospital: 4 Subjective Mr Padmini Amador is a 79 yo m with PMH CAD, dm2, htn, hld, mild normocytic anemia, 2000 duodenal ulcer s/p GI bleed, diverticulosis, 2007 gallstone pancreatitis, BPH, psoriasis who was admitted on 03/14/2020 for evaluation for PCI v CABG ?? Interval History Pt without complaints NAEON Objective BP 101/63 Pulse 61 Temp 98 ??F (36.7 ??C) (Oral) Resp 20 Ht 1.803 m (5' 11 ) Wt 86.5 kg (190 lb 9.6oz) SpO2 96% BMI 26.58 kg/m2 Physical Exam: Gen: NAD, mild memory deficits CV: No JVD, RRR, no r/g, 2+ systolic murmur Pulm: CTAB Abdomen: NT, ND, Extremities: No edema; L thigh semicircular dry plaque rash Intake/Output Summary (Last 24 hours) at 03/18/2020 0841 Last data filed at 03/17/2020 2120 Gross per 24 hour Intake 420 ml Output -- Net 420 ml Labs Reviewed in chart. Pertinent below. CBC Recent Labs Component Name 03/18/20 0700 03/17/20 0615 03/16/20 0530 WBC 7.4 6.8 7.9 HGB 13.3* 12.5* 11.8* HCT 40.8 37.4* 36.2* MCV 89.3 89.3 88.9 CMP Recent Labs Component Name 03/18/20 0703/17/20 0618 03/16/20 0530 03/14/20 2316 03/14/20 2316 NA 134* 134* 135* - 134* POTASSIUM 4.9* 4.6* 4.3 - 4.4 CL 98 98 98 - 96* CO2 26 28 27 - 28 CREATININE 1.1 1.0 1.1 - 1.1 BUN 31* 30* 30* - 32* ALKPHOS - - - - 69 ALT - - - - 17 AST - - - - 22 - = values in this interval not displayed. ABG No results for input(s): PHART, PO2ART, TCL7HCZ in the last 28858 hours. Invalid input(s): V9UREZD, VRD2IUM LFTs Recent Labs Component Name 03/14/20 2316 ALT 17 AST 22 ALKPHOS 69 TBILI 1.2 COAGs Recent Labs Component Name 03/14/20 2317 PT 14.0 INR 1.1 LIPIDs Recent Labs Component Name 03/15/20 0630 CHOL 115 HDL 35* LDLCALC 65 TRIG 75 CARDIAC Recent Labs Component Name 03/16/20 0933 TROPONINI 0.644* DIABETES Recent Labs Component Name 03/18/20 0700 CREATININE 1.1 Imaging OSH Cath and TTE report in media tab TTE pending final read 03/17/2020 Heart cath to be completed this AM Assessment & Plan Padmini Amador??is a 79 year old??male??with PMH CAD, HLD, HTN, BPH, T2DM, and psoriasis??who presented with for CABG??and TAVR??[facility] #Triple vessel??CAD v less likely NSTEMI -??Underwent cath at OSH with report above. Trop peak at 5, now downtrending. Significant FMH of CAD. Patient was on heparin drip at OSH. Denies CP. Unclear initiation of plavix at OSH. ?? - Pt on telemetry - echo ordered ??(CD with MATT and TTE images from OSH in paper chart does not work) - cath images on synapse, to f/u - F/u CABG eval for carotid duplex, b/l venous mapping, dental consult eval of panorex ordered, to follow up -??heparin drip continued initially but dc'd 03/16 in context of OSH trop 5 s/p cath that day, on plavix - continued on metoprolol succinate 50 mg qd due to PVCs - continue asa 81 daily, atrovastatin 80 mg, lisinopril 2.5 mg #New onset??HFrEF??likely ICM -??BNP 1060s on admission with pulmonary vascular congestion on CXR imaging. Pt now without edema or JVD. ?? - Furosemide 20 po daily - cardiac rehab order placed - BMP, Continue Tele, Strict Is and Os, Daily Weights ?? #Moderate -??Aortic valve leaflet area 1cm2 in setting of multiple vessel disease, pending repeat TTE read -??Follow up cardiac surgery reccs ?? #Normocytic anemia -??May be 2/2 anemia of chronic dz vs iron deficiency. -??OSH fe 24, fe today 90, on heparin drip now - CTM ?? #T2DM Home regimen: metformin 1000 mg BID, glimepiride 2 mg PO. Hgb??A1c 03/15/2020 6.5 ?? - SSI TID with accuchecks ACHS, tolerating well ?? #BPH -??On home finasteride, tamsulosin, to continue ?? #L Thigh Rash - Vaseline prn ?? MEDICATIONS FOR CURRENT ENCOUNTER: SCHEDULED MEDICATIONS: ??? 0.9% NaCl injection 3 mL, Intracatheter, q8h ??? aspirin chew tablet 81 mg, Oral, QDAY ??? atorvastatin (LIPITOR) tablet 80 mg, Oral, AT BEDTIME ??? clopidogrel (plaVIX) tablet 75 mg, Oral, QDAY ??? finasteride (PROSCAR) tablet 5 mg, Oral, QDAY ??? furosemide (LASIX) tablet 20 mg, Oral, QDAY ??? insulin aspart (NovoLOG) pen 0-6 Units, Subcutaneous, TID WC ??? lisinopril (PRINIVIL; ZESTRIL) tablet 2.5 mg, Oral, QDAY ??? metoprolol succinate XL 24hr (TOPROL XL) tablet 50 mg, Oral, QDAY ??? perflutren Lipid Microsphere (DEFINITY) injection SUSP 0.5 mL, Intravenous, intra-Procedure multiple ??? polyethylene glycol 3350 (MIRALAX) packet 17 g, Oral, QDAY ??? senna (SENOKOT) tablet 8.6 mg, Oral, QDAY ??? tamsulosin (FLOMAX) capsule 0.4 mg, Oral, QDAY ? [COMPLETED] clopidogrel (plaVIX) tablet 600 mg, Oral, Once ?? CONTINUOUS MEDICATIONS: PRN MEDICATIONS: ??? 0.9% NaCl injection 1-10 mL, Intracatheter, PRN ??? dextrose IV 12.5-25 g, Intravenous, PRN ??? glucagon (GLUCAGEN) injection 1 mg, Intramuscular, PRN ? glucose (Diabetic Use) oral gel, Oral, PRN Daily Checklist VTE PPX [] SCD [] SQ Heparin [] SQ Lovenox [] Therapeutic Anticoagulation ; Pt now NPO and holding dvt ppx today in anticipation of procedure Stress Ulcer PPX [x] None [] Famotidine [] PPI Fluids Electrolytes Nutrition [x] None [] IV maintenance fluids [] IV colloid infusions K~4.0 Mg~2.0 Phos~3.0 DIET NPO Except: SIPS WITH MEDS LDA pIV Activity Level: Up as tolerated Consults IP CONSULT TO CARD SURGERY - CARDIAC TEAM IP CONSULT TO DENTIST Disposition Medical stabilization Code Status Full Code D/W Attending Physician, Dr. Jackeline Reyes MD Internal Medicine, PGY1 03/18/2020 8:41 AM Associated attestation - Feliciano Viveros MD - 03/18/2020 9:28 PM CDT ATTENDING PHYSICIAN NOTE Patient seen and examined with the resident. I confirm history, exam, assessment and plan. In addition I note: Interval history: PMH CAD, dm2, htn, hld, mild normocytic anemia, 2000 duodenal ulcer s/p GI bleed,diverticulosis, 2007 gallstone pancreatitis, BPH, psoriasis who was admitted on 03/14/2020 for evaluation for PCI v CABG [facility]: 60% prox LAD, 90% D1 and D2, 90% OM. ECHO with severe LV and La dilatation, akinetic scarred inferolateral, anterolateral, anterior walland apex. Hypokinetic remotre wall motion. EF 20- 25%, moderate functional MR, regurgitannt orifice area 20 mm2, volume 25-30 ml. Severe low gradient . AV velocity 2.6 m/sec. VTI 61 cm. LVOT diameter 2.2 cm. Velocity 0.45 m/sec, VTI 10.9 cm. LVOT/AV velocity and VTI ratios 0.17. Area 0.6-0.7 cm2. Lowoutput failure. CO 2.5 L/min/ CI 1.3 L/min/M2. Severe DD. LA pressure high E/E' ratio 30-40. Modest TR, venous pressure. PA pressure 40-45 mmHg. No effusion. CTS consult. Not candidate for CABG due to severe scar with > 50% of LV nonviable and scar. Cr 1.1. LAD and RCA modestly functional. Modest TR. Plan PCI and then TAVR. Target diagonals, poss LAD and OM. Final plans to follow. CXR: CM, PVR, failure. Sinus, PVCs, LAE, IVCD, possible IMI, PRP. ST depression and alteral T inversion. PCI, LifeVest, FU ECHO, likely ICD, and then TAVR Diuresis and med optimization. Limited titration for now. Instrument and then titrate meds when done. Exam: BP 101/63 Pulse 61 Temp 98 ??F (36.7 ??C) (Oral) Resp 20 Ht 5' 11 (1.803 m) Wt 190 lb 9.6 oz(86.5 kg) SpO2 96% BMI 26.58 kg/m2 Gen: NAD. Neck: (+) JVD/HJR Cor: RRR. LV/RV heaves. S4, S1, 3/6 CECILIA, 2/6 HSM LSB and apex, A2, loud P2, soft S3. Resp: rales bilaterally. GI: soft. NT, HJR. Ext: 1+ edema Medications were reviewed; please see warehouse loader's note for complete list. Data Review: Lab Results: Recent Labs Component Name 03/18/20 0703/17/20 0615 03/16/20 0530 WBC 7.4 6.8 7.9 HGB 13.3* 12.5* 11.8* HCT 40.8 37.4* 36.2* PLTCOUNT 195 194 173 Recent Labs Component Name 03/18/20 0703/17/20 0618 03/16/20 0530 POTASSIUM 4.9* 4.6* 4.3 CO2 26 28 27 BUN 31* 30* 30* CREATININE 1.1 1.0 1.1 GLUCOSE 185* 173* 154* CALCIUM 9.6 9.6 9.4 Recent Labs Component Name 03/16/20 0530 03/15/20 2356 03/15/20 1624 03/14/20 2317 03/14/20 2317 INR - - - - 1.1 PT - - - - 14.0 PTT 89.0* 76.8* >200.0* - 35.3 - = values in this interval not displayed. Recent Labs Component Name 03/14/20 231 ALKPHOS 69 ALT 17 AST 22 No results for input(s): TSH in the last 52763 hours. No results for input(s): CKMB, TROPONIN, MYOGLOBIN in the last 58566 hours. No results for input(s): PHART, TNX7WMU, PO2ART, P2GJDZOC, ZOT2YOC, BEART, FIO2 in the last 44950 hours. Recent Labs Component Name 03/15/20 0630 CHOL 115 HDL 35* TRIG 75 LDLCALC 65 Assessment/Plan: PMH CAD, dm2, htn, hld, mild normocytic anemia, 2000 duodenal ulcer s/p GI bleed, diverticulosis, 2007 gallstone pancreatitis, BPH, psoriasis who was admitted on 03/14/2020 for evaluation for PCI v CABG [facility]: 60% prox LAD, 90% D1 and D2, 90% OM. ECHO with severe LV and La dilatation, akinetic scarred inferolateral, anterolateral, anterior walland apex. Hypokinetic remotre wall motion. EF 20- 25%, moderate functional MR, regurgitannt orifice area 20 mm2, volume 25-30 ml. Severe low gradient . AV velocity 2.6 m/sec. VTI 61 cm. LVOT diameter 2.2 cm. Velocity 0.45 m/sec, VTI 10.9 cm. LVOT/AV velocity and VTI ratios 0.17. Area 0.6-0.7 cm2. Lowoutput failure. CO 2.5 L/min/ CI 1.3 L/min/M2. Severe DD. LA pressure high E/E' ratio 30-40. Modest TR, venous pressure. PA pressure 40-45 mmHg. No effusion. CTS consult. Not candidate for CABG due to severe scar with > 50% of LV nonviable and scar. Cr 1.1. LAD and RCA modestly functional. Modest TR. Plan PCI and then TAVR. Target diagonals, poss LAD and OM. Final plans to follow. CXR: CM, PVR, failure. Sinus, PVCs, LAE, IVCD, possible IMI, PRP. ST depression and alteral T inversion. PCI, LifeVest, FU ECHO, likely ICD, and then TAVR Diuresis and med optimization. Limited titration for now. Instrument and then titrate meds when done. Please see the resident's note for further details. Feliciano Viveros MD, F.A.C.C. dentist/owner 03/18/2020 11:07 AM * Anjelica Billingsley RN - 03/18/2020 2:02 AM CDT Problem: Fall Risk Goal: Fall risk and fall related injury risk are minimized Description: Mr. Amador will remain free of falls by calling for assistance with ambulation. Outcome: Ongoing Pt has call light and belongings within reach. Pt maintains independence with all ADL's. Will continue to monitor. * Yaquelin Medina RN - 03/17/2020 1:20 PM CDT A Chart Review has been conducted by Case Management. Anticipated level of care at discharge: Home Discharge Plan: Home Basic Needs Assessment (BNA) Score: 7 Anticipated Discharge Date: 03/19/20 PCP: Floyd Mckinney [address] [place] [address] Per nursing assessments: Alert and oriented. Lives with his , Britni [phone], she will pick him up from the hospital at discharge and provide support for recovery to wellness. He is independent with ADLs without an assistive device. He is able to obtain his medications from the pharmacy of his choice at discharge. Transportation (who): Britni [phone] Line Up Examiner/Support: Line Up Examiner/Support Person - Relationship:: Britni Amador Line Up Examiner person: Line Up Examiner/Support Person Contact #: [phone] Home/Functional Status: Functional and Cognitive Status Is person deaf or have serious hearing difficulty?: No Is person blind or have serious difficulty seeing?: No Does person have serious difficulty walking/climbing stairs?: No Does person have difficulty dressing/bathing?: No Does person have difficulty doing errands alone?: No Does person have difficulty concentrating/remembering/making decisions?: No Equipment with patient: None Assistive Devices: None ?. Will continue to follow. For any questions or needs please contact: Obiee Lead Developer Name/Phone number: JOHANNA Morales, clinical services professional Office:[phone] 03/17/2020 * Cierra Arauz RN - 03/17/2020 11:47 AM CDT Mr. Amador will remain free of falls by calling for assistance when needed. * Enrike Cronin MD - 03/17/2020 9:44 AM CDT MEDICINE PROGRESS NOTE Patient: Padmini Amador (:1940) Room: [facility]/ Date of admission: 03/14/2020 No of days in hospital: 3 Subjective Mr Padmini Amador is a 79 yo m with PMH CAD, dm2, htn, hld, mild normocytic anemia, 2000 duodenal ulcer s/p GI bleed, diverticulosis, 2007 gallstone pancreatitis, BPH, psoriasis who on 02/26 was feeling fatigued and sob after mowing his lawn, even though he is quite active at baseline. He went to laydown in bed early, but had orthopnea and sob and went to the ED. ? At [facility] on 02/27/2020 , he was diagnosed with new onset heart failure where it was noted he had 5-6 weeks of productive cough of frothy white sputum without chest pain. CXR showed pulmonary edema. Echo showed EF 35-40%, LA mildly enlarged, AV calcification with moderately restricted motion, mild , Aortic valve peak velocity 2.5 m/s, AV MG 18, NGUYỄN 1; IVC dilation. Mild pulmonary hypertension mean PA pressure ~45 mmHg. ?? He was initiated on bblocker, jose-I, diuresis; and he was scheduled to return for ischemic heart catheterization workup. At that point additional labs showed vit B12 was 248, TSH 0.96, Fe 24, TIBC 34, ferritin 76. ?? On 03/10/2020 he had a heart catheterization which showed no significant disease in the left main, 60% LAD proximal stenosis and midway through the vessel with 90% distal stenosis starting at the point of the apex; first diagonal and second diagonal ostial 90% stenosis. 1st obtuse marginal with 90%stenosis with bifurcation of artery showing 90% ostial stenosis in both arteries distal to bifurcation. ?? On 03/10 he returned to the ED the same day after his heart catheterization for sob. He was found to have troponin 5 in context of having heart catheterization that day; was admitted at OSH for NSTEMI and [facility] and MATT were completed for CABG evaluation. Patient was then transferred to [facility] for CABG v PCI eval in addition to eval of moderate for AVR. ?? At OSH, ntproBNP 7490, troponin 5.64, ECG without NORAH or ST Depressions, in context of heart catheterization that day. ? At [facility] after transfer, pt's troponin downtrending 1.262 -> 0.985, BNP 1065. ECG with PVCs, prolonged QT. Lipid panel showed TC 115, TG 75, LDL 65, HDl 35. CBC, BMP not clinically significant. Fe panel completed without clinical significance, suggesting prior fe treatment. ?? Unclear initiation of plavix at OSH - no documentation of this found; patient on heparin drip at [facility], now discontinued. Pending repeat TTE, review of OSH cath images, CT surgery reccs. ?? Interval History Pt with PVCs overnight, asx Pt without complaints NAEON Objective BP 102/69 Pulse 63 Temp 98.2 ??F (36.8 ??C) (Oral) Resp 18 Ht 1.803 m (5' 11 ) Wt 86.5 kg (190 lb 9.6 oz) SpO2 98% BMI 26.58 kg/m2 Physical Exam: Gen: NAD, mild memory deficits CV: No JVD, RRR, no r/g, 2+ systolic murmur Pulm: CTAB Abdomen: NT, ND, R sided puncture site from cath c/d/i Extremities: No edema; L thigh semicircular dry plaque rash Intake/Output Summary (Last 24 hours) at 03/17/2020 0944 Last data filed at 03/16/20202127 Gross per 24 hour Intake 763.27 ml Output -- Net 763.27 ml Labs Reviewed in chart. Pertinent below. CBC Recent Labs Component Name 03/17/20 0615 03/16/2052903/15/20629 WBC 6.8 7.9 7.5 HGB 12.5* 11.8* 12.5* HCT 37.4* 36.2* 37.4* MCV 89.3 88.9 86.4 CMP Recent Labs Component Name 03/17/20 0618 03/16/20 0530 03/15/2030 03/14/20 2316 NA 134* 135* 136 134* POTASSIUM 4.6* 4.3 4.7* 4.4 CL 98 98 99 96* CO2 28 27 24 28 CREATININE 1.0 1.1 1.0 1.1 BUN 30* 30* 25 32* ALKPHOS - - - 69 ALT - - - 17 AST - - - 22 ABG No results for input(s): PHART, PO2ART, [id number] in the last 84901 hours. Invalid input(s): [id number], [id number] LFTs Recent Labs Component Name 03/14/20 2316 ALT 17 AST 22 ALKPHOS 69 TBILI 1.2 COAGs Recent Labs Component Name 03/14/20 2317 PT 14.0 INR 1.1 LIPIDs Recent Labs Component Name 03/15/20 0630 CHOL 115 HDL 35* LDLCALC 65 TRIG 75 CARDIAC Recent Labs Component Name 03/16/20 0933 TROPONINI 0.644* DIABETES Recent Labs Component Name 03/17/20 0618 CREATININE 1.0 Imaging OSH Cath and TTE report in media tab TTE pending final read Assessment & Plan Padmini Amador??is a 79 year old??male??with PMH CAD, HLD, HTN, BPH, T2DM, and psoriasis??who presented with for CABG??and TAVR??evaluation from [facility].? #Triple vessel??CAD v less likely NSTEMI -??Underwent cath at OSH with report above. Trop peak at 5, now downtrending. Significant FMH of CAD. Patient was on heparin drip at OSH. Denies CP. Unclear initiation of plavix at OSH. ?? - Pt on telemetry - echo ordered ??(CD with MATT and TTE images from OSH in paper chart does not work) - cath images on synapse, to f/u - F/u CABG eval for carotid duplex, b/l venous mapping, dental consult eval of panorex ordered, to follow up -??heparin drip continued initially but dc'd 03/16 in context of OSH trop 5 s/p cath that day - continued on metoprolol succinate 50 mg qd due to PVCs - continue asa 81 daily, atrovastatin 80 mg, lisinopril 2.5 mg ?? #New onset??HFrEF??likely ICM -??BNP 1060s on admission with pulmonary vascular congestion on CXR imaging. Pt now without edema or JVD. Pt hypotensive s/p overdiuresis yesterday, pt tolerating new diuretic regimen. ?? - Furosemide 20 po daily - cardiac rehab order placed - BMP, Continue Tele, Strict Is and Os, Daily Weights ?? #Moderate -??Aortic valve leaflet area 1cm2 in setting of multiple vessel disease, pending repeat TTE read -??Follow up cardiac surgery reccs ?? #Normocytic anemia -??May be 2/2 anemia of chronic dz vs iron deficiency. -??OSH fe 24, fe today 90, on heparin drip now - CTM ?? #T2DM Home regimen: metformin 1000 mg BID, glimepiride 2 mg PO. Hgb??A1c 03/15/2020 6.5 ?? - SSI TID with accuchecks ACHS, tolerating well ?? #BPH -??On home finasteride, tamsulosin, to continue ?? #L Thigh Rash - Vaseline prn ?? MEDICATIONS FOR CURRENT ENCOUNTER: SCHEDULED MEDICATIONS: ??? 0.9% NaCl injection 3 mL, Intracatheter, q8h ??? aspirin chew tablet 81 mg, Oral, QDAY ??? atorvastatin (LIPITOR) tablet 80 mg, Oral, AT BEDTIME ??? finasteride (PROSCAR) tablet 5 mg, Oral, QDAY ??? furosemide (LASIX) tablet 20 mg, Oral, QDAY ??? heparin injection 5,000 Units, Subcutaneous, q8h ??? insulin aspart (NovoLOG) pen 0-6 Units, Subcutaneous, TID WC ??? lisinopril (PRINIVIL; ZESTRIL) tablet 2.5 mg, Oral, QDAY ??? metoprolol succinate XL 24hr (TOPROL XL) tablet 50 mg, Oral, QDAY ??? polyethylene glycol 3350 (MIRALAX) packet 17 g, Oral, QDAY ??? senna (SENOKOT) tablet 8.6 mg, Oral, QDAY ? tamsulosin (FLOMAX) capsule 0.4 mg, Oral, QDAY ?? CONTINUOUS MEDICATIONS: PRN MEDICATIONS: ??? 0.9% NaCl injection 1-10 mL, Intracatheter, PRN ??? dextrose IV 12.5-25 g, Intravenous, PRN ??? glucagon (GLUCAGEN) injection 1 mg, Intramuscular, PRN ? glucose (Diabetic Use) oral gel, Oral, PRN Daily Checklist VTE PPX [] SCD [] SQ Heparin [] SQ Lovenox [] Therapeutic Anticoagulation ; Pt now NPO and holding AC today in anticipation of procedure Stress Ulcer PPX [x] None [] Famotidine [] PPI Fluids Electrolytes Nutrition [x] None [] IV maintenance fluids [] IV colloid infusions K~4.0 Mg~2.0 Phos~3.0 DIET NPO Except: SIPS WITH MEDS LDA pIV Activity Level: Up as tolerated Consults IP CONSULT TO CARD SURGERY - CARDIAC TEAM IP CONSULT TO DENTIST Disposition Medical stabilization Code Status Full Code D/W Attending Physician, Dr. Mehrdad Reyes MD Internal Medicine, PGY1 03/17/2020 9:44 AM Attending Physician's Note Patient was seen and examined with the house staff on 03/17/2020. I have discussed the pertinent information with the house staff and have reviewed all pertinent laboratory data and imaging studies. I agree with their assessment and plan of care as outlined. The patient is a 79 year old female PMH CAD, DM2, HTN, HLD, mild normocytic anemia,, duodenal ulcers/p GI bleed,??diverticulosis,??gallstone pancreatitis, BPH, psoriasis who??was transferred from [facility] on 03/14/2020 for evaluation for PCI vs CABG as he had a LHC there for NSTEMI that showed 60% prox LAD, 90% D1 and D2, 90% OM. His echo showed severe LV and LA dilatation, akinetic scarred inferolateral, anterolateral, anterior wall and apex, hypokinetic remotre wall motion and LVEF of 20-25%, moderate functional MR, and severe low gradient . CTS was consulted and decided that the patient is no a suitable candidate for CABG due to severe scar with >??50% of LV nonviable and s car. ?On examination JVD was elevated but lungs were clear. BNP was significantly elevated.Patient was diuresed as he was diagnosed with acute heart failure exacerbation. He underwent successful PCI to LCx and OM2 on 03/19/2020. Dr. Dumont was consulted for offering the patient TAVR and he decided that TAVR will be done as an outpatient. Pat was discharged on LifeVest because of low LVEF. Assessment and Plan ?? Patient had NSTEMI and multivessel CAD S/P successful PCI to LCx and OM2 on 03/19/2020. ?? Acute heart failure exacerbation that resolved on diuresis. ?? Cardiomyopathy, likely ischemic, but may be at leat partially related to sever . ?? Plan ?? For LifeVEST on discharge. Valve clinic for follow up regarding a potential TAVR procedure. Continue home medicines as per discharge summary. For follow up with echo in EP clinic in three months following TAVR to decide on potential need forICD Implantations. ?? * Anjelica Billingsley RN - 03/17/2020 12:05 AM CDT Problem: Fall Risk Goal: Fall risk and fall related injury risk are minimized Outcome: Ongoing Pt ambulates independently with a steady gait and balance. Will continue to monitor. * Lenka Ivory PA-C - 03/16/2020 6:00 PM CDT Cardiac Surgery Plan of Care Patient status, recent diagnostic studies and imaging reviewed with Dr. Cleveland. Still awaiting OSH TTE or MATT images versus U TTE tomorrow. Report available from OSH and reviewed. Recommendations: Management per Primary team Cardiac Surgery recommends: - Continue surgical work up as ordered - Repeat TTE if no images obtained that can be visualized on our system - Hold all anti-platelet therapies Plan to discuss patient with record center specialist to determine best treatment option for patient given SAVR + CABG versus TAVR + PCI risks are similar. Patient understands and agreeable to continuing work up as team discusses patient. Plan to speak with patient and again tomorrow with more definitive plan options. Discussed with client care representative. Lenka Ivory PA-C 03/16/2020 6:02 PM * Alondra Amador - 03/16/2020 3:33 PM CDT Patient stopped [facility] in the hallway, introduced himself, and started talking. Patient talked about his upcoming surgery. He didn't know when it would be, but he believes that he will be in the best hands and he expects a good outcome. [facility] listened to Patient as he talked about God and how much God loves us. [facility] listened to Patient until he decided to go back to his room. * Andrea Gifford MD - 03/16/2020 12:50 PM CDT MEDICINE PROGRESS NOTE Patient: Padmini Amador (:1940) Room: [facility] Date of admission: 03/14/2020 No of days in hospital: 2 Subjective Mr Padmini Amador is a 79 yo m with H CAD, dm2, htn, hld, mild normocytic anemia, 2000 duodenal ulcer s/p GI bleed, diverticulosis, 2007 gallstone pancreatitis, BPH, psoriasis who on 02/26 was feeling fatigued and sob after mowing his lawn, even though he is quite active at baseline. He went to laydown in bed early, but had orthopnea and sob and went to the ED. ? At [facility] on 02/27/2020 , he was diagnosed with new onset heart failure where it was noted he had 5-6 weeks of productive cough of frothy white sputum without chest pain. CXR showed pulmonary edema. Echo showed EF 35-40%, LA mildly enlarged, AV calcification with moderately restricted motion, mild , Aortic valve peak velocity 2.5 m/s, AV MG 18, NGUYỄN 1; IVC dilation. Mild pulmonary hypertension mean PA pressure ~45 mmHg. ?? He was initiated on bblocker, jose-I, diuresis; and he was scheduled to return for ischemic heart catheterization workup. At that point additional labs showed vit B12 was 248, TSH 0.96, Fe 24, TIBC 34, ferritin 76. ?? On 03/10/2020 he had a heart catheterization which showed no significant disease in the left main, 60% LAD proximal stenosis and midway through the vessel with 90% distal stenosis starting at the point of the apex; first diagonal and second diagonal ostial 90% stenosis. 1st obtuse marginal with 90%stenosis with bifurcation of artery showing 90% ostial stenosis in both arteries distal to bifurcation. ?? On 03/10 he returned to the ED after his heart catheterization for sob. He was found to have troponin 5 in context of having recent heart catheterization; was admitted for [facility]STEMI [facility] and MATT were completed for CABG evaluation. Patient was then transferred to [facility] for CABG v PCI eval in addition to eval of moderate for AVR. ?? At OSH, ntproBNP 7490, troponin 5.64, ECG without NORAH or ST Depressions, in context of heart catheterization that day. ? At [facility] after transfer, pt's troponin downtrending 1.262 -> 0.985, BNP 1065. ECG with PVCs, prolonged QT. Lipid panel showed TC 115, TG 75, LDL 65, HDl 35. CBC, BMP not clinically significant. Fe panel completed without clinical significance, suggesting prior fe treatment. ?? Unclear initiation of plavix at OSH - no documentation of this found; patient on heparin drip at [facility], now discontinued. Pending repeat TTE, review of OSH cath images, CT surgery reccs. ?? Interval History Pt hypotensive likely due to overdiuresis with IV lasix. Decreased to po regimen. Metoprolol succ continued for PVC Pt awaiting final plan, without complaints Objective BP 98/63 Pulse 62 Temp 97.6 ??F (36.4 ??C) (Oral) Resp 17 Ht 1.803 m (5' 11 ) Wt 86.5 kg (190 lb 9.6 oz) SpO2 100% BMI 26.58 kg/m2 Physical Exam: Gen: NAD, mild memory deficits CV: No JVD, RRR, no r/g, 2+ systolic murmur Pulm: CTAB Abdomen: NT, ND, R sided puncture site from cath c/d/i Extremities: No edema; L thigh semicircular dry plaque rash Intake/Output Summary (Last 24 hours) at 03/16/2020 1252 Last data filed at 03/16/2020 1005 Gross per 24 hour Intake 1695.87 ml Output 1770 ml Net -74.13 ml Labs Reviewed in chart. Pertinent below. CBC Recent Labs Component Name 03/16/20 0530 03/15/20 0630 03/14/20 2317 WBC 7.9 7.5 8.4 HGB 11.8* 12.5* 12.5* HCT 36.2* 37.4* 37.8* MCV 88.9 86.4 89.2 CMP Recent Labs Component Name 03/16/20 0530 03/15/20 0630 03/14/20 2316 NA 135* 136 134* POTASSIUM 4.3 4.7* 4.4 CL 98 99 96* CO2 27 24 28 CREATININE 1.1 1.0 1.1 BUN 30* 25 32* ALKPHOS - - 69 ALT - - 17 AST - - 22 ABG No results for input(s): PHART, PO2ART, OVU4ECX in the last 97927 hours. Invalid input(s): Y5FALOS, [id number] LFTs Recent Labs Component Name 03/14/20 2316 ALT 17 AST 22 ALKPHOS 69 TBILI 1.2 COAGs Recent Labs Component Name 03/14/20 2317 PT 14.0 INR 1.1 LIPIDs Recent Labs Component Name 03/15/20 0630 CHOL 115 HDL 35* LDLCALC 65 TRIG 75 CARDIAC Recent Labs Component Name 03/16/20 0933 TROPONINI 0.644* DIABETES Recent Labs Component Name 03/16/20 0530 CREATININE 1.1 Imaging OSH Cath and TTE report in media tab TTE to be completed 03/17 Assessment & Plan Padmini Amador??is a 79 year old??male??with PMH CAD, HLD, HTN, BPH, T2DM, and psoriasis??who presented with for CABG??and TAVR??evaluation from [facility].? #Triple vessel??CAD v less likely NSTEMI -??Underwent cath at OSH with report above. Trop peak at 5, now downtrending. Significant FMH of CAD. Patient was on heparin drip at OSH. Denies CP. Unclear initiation of plavix at OSH. ?? - Pt on telemetry - echo ordered ??(CD with MATT and TTE images from OSH in paper chart does not work) - cath images on synapse, to f/u - F/u CABG eval for carotid duplex, b/l venous mapping, dental consult eval of panorex ordered, to follow up -??heparin drip continued initially but dc'd when trop 5 was in context of cath that day 03/10 - continued on metoprolol succinate 50 mg qd due to PVCs - continue asa 81 daily, atrovastatin 80 mg, lisinopril 5 mg ->2.5 mg ?? #New onset??HFrEF??likely ICM -??Pt hypotensive s/p IV lasix. Pt without edema or JVD. BNP 1060s on admission with mild pulmonaryvascular congestion on imaging CXR. OSH troponin 5 s/p heart cath that day, now downtrending. ?? - furosemide??40 IV BID -> furosemide 20 po daily - cardiac rehab order placed - BMP, Continue Tele, Strict Is and Os, Daily Weights ?? #Moderate -??Aortic valve leaflet area 1cm2 in setting of multiple vessel disease, pending repeat TTE tomorrow -??Follow up cardiac surgery reccs ?? #Normocytic anemia -??May be 2/2 anemia of chronic dz vs iron deficiency. -??OSH fe 24, fe today 90, on heparin drip now - CTM ?? #T2DM Home regimen: metformin 1000 mg BID, glimepiride 2 mg PO. Hgb??A1c 03/15/2020 6.5 ?? - SSI TID with accuchecks ACHS, tolerating well ?? #BPH -??On home finasteride, tamsulosin, to continue ?? #L Thigh Rash - Vaseline prn ?? MEDICATIONS FOR CURRENT ENCOUNTER: ?? SCHEDULED MEDICATIONS: ? 0.9% NaCl injection 3 mL, Intracatheter, q8h ? aspirin chew tablet 81 mg, Oral, QDAY ? atorvastatin (LIPITOR) tablet 80 mg, Oral, AT BEDTIME ? finasteride (PROSCAR) tablet 5 mg, Oral, QDAY ? furosemide (LASIX) tablet 20 mg, Oral, QDAY ? heparin injection 5,000 Units, Subcutaneous, q8h ? insulin aspart (NovoLOG) pen 0-6 Units, Subcutaneous, TID WC ? lisinopril (PRINIVIL; ZESTRIL) tablet 2.5 mg, Oral, QDAY ? metoprolol succinate XL 24hr (TOPROL XL) tablet 50 mg, Oral, QDAY ? polyethylene glycol 3350 (MIRALAX) packet 17 g, Oral, QDAY ? senna (SENOKOT) tablet 8.6 mg, Oral, QDAY ? tamsulosin (FLOMAX) capsule 0.4 mg, Oral, QDAY ? [COMPLETED] furosemide (LASIX) tablet 40 mg, Oral, Once ?? CONTINUOUS MEDICATIONS: ?? PRN MEDICATIONS: ? 0.9% NaCl injection 1-10 mL, Intracatheter, PRN ? dextrose IV 12.5-25 g, Intravenous, PRN ? glucagon (GLUCAGEN) injection 1 mg, Intramuscular, PRN ? glucose (Diabetic Use) oral gel, Oral, PRN Daily Checklist VTE PPX [] SCD [x] SQ Heparin [] SQ Lovenox [] Therapeutic Anticoagulation Stress Ulcer PPX [x] None [] Famotidine [] PPI Fluids Electrolytes Nutrition [x] None [] IV maintenance fluids [] IV colloid infusions K~4.0 Mg~2.0 Phos~3.0 DIET DIABETIC CONSIST CARB CARDIAC LDA pIV Activity Level: Up as tolerated Consults IP CONSULT TO CARD SURGERY - CARDIAC TEAM IP CONSULT TO DENTIST Disposition Medical stabilization Code Status Full Code D/W Attending Physician, Dr. Balta Reyes MD Internal Medicine, PGY1 03/16/2020 12:52 PM I personally interviewed and evaluated the patient. Plan of care discussed with the team.. I reviewed the resident'snote and concur with the findings, assessments and plans. I have no additions at this time. See fellow note for details. Briefly, complex CAD with recent NSTEMI associated with cath. Very active individual for age with recent onset dyspnea. Moderatly severe with reduced EF noted on TTE. Plans are for further assessment of AV stenosis severity, current LV Function with TTE. Await CT input on CABG/SAVr vs PCI/TAVR * Jackie Zayas - 03/16/2020 9:01 AM CDT Problem: Fall Risk Goal: Fall risk and fall related injury risk are minimized Outcome: Ongoing Flowsheets (Taken 03/16/2020 0728) Bri Taveras Fall Risk Total: 10 [place] Fall Risk Precaution Interventions: Call light/belongings in reach Bed in low position and locked Wheelchairs and chairs locked SR upx2 Ensure adequate lighting Clutter free and spill free environment Educate to the purpose of universal fall precautions Educate to call for assistance Keep closet and bathroom doors closed when not in use Use of appropriate footwear (see row information) Low Fall Risk Interventions (7-10): Place FALL RISK ID band on pt. Medication Related Interventions: Limit prn combo med when possible (ex., sedative, analgesics, etc.) Toileting Fall Interventions: Instruct male pts prone to dizziness to void while sitting (use urinal when necessary) Volume/Electrolyte Fall Interventions: Ensure that the pt remains hydrated Monitor abnormal lab values * Anjelica Billingsley RN - 03/16/2020 12:21 AM CDT Problem: Fall Risk Goal: Fall risk and fall related injury risk are minimized Outcome: Ongoing Patient ambulates independently with a steady gait and balance. Will continue to monitor. * Andrea Gifford MD - 03/15/2020 1:13 PM CDT Mr Padmini Amador is a 79 yo m with PMH CAD, dm2, htn, hld, mild normocytic anemia, 2000 duodenal ulcer s/p GI bleed, diverticulosis, 2008 gallstone pancreatitis, BPH, psoriasis who on 02/26 was feeling fatigued and sob after mowing his lawn, even though he is quite active at baseline. He went to laydown in bed early, but had orthopnea and sob and went to the ED. At the [facility]SH ED on 02/27/2020 , he was diagnosed with new onset heart failure where it was noted he had 5-6 weeks of productive cough of frothy white sputum without chest pain. CXR showed pulmonary edema. Echo showed EF 35-40%, LA mildly enlarged, AV calcification with moderately restricted motion, mild , Aortic valve peak velocity 2.5 m/s, AV MG 18, NGUYỄN 1; IVC dilation. Mild pulmonary hypertension mean PA pressure ~45 mmHg. He was initiated on bblocker, jose-I, diuresis; and he was scheduled to return for ischemic heart catheterization workup. At that point additional labs showed vit B12 was 248, TSH 0.96, Fe 24, TIBC 34, ferritin 76. On 03/10/2020 he had a heart catheterization which showed no significant disease in the left main, 60% LAD proximal stenosis and midway through the vessel with 90% distal stenosis starting at the point of the apex; first diagonal and second diagonal ostial 90% stenosis. 1st obtuse marginal with 90%stenosis with bifurcation of artery showing 90% ostial stenosis in both arteries distal to bifurcation. On 03/10 he returned to the ED after his heart catheterization for sob. He was found to have troponin 5 in context of having recent heart catheterization; was admitted for NSTEMI [facility] and MATT were completed for CABG evaluation. Patient was then transferred to [facility] for CABG v PCI eval in addition to eval of moderate for AVR. At OSH, ntproBNP 7490, troponin 5.64, ECG without NORAH or ST Depressions, in context of heart catheterization that day. At [facility] after transfer, pt's troponin downtrending 1.262 -> 0.985, BNP 1065. ECG with PVCs, prolonged QT. Lipid panel showed TC 115, TG 75, LDL 65, HDl 35. CBC, BMP not clinically significant. Fe panel completed without clinical significance, suggesting prior fe treatment. Unclear initiation of plavix at OSH - no documentation of this found; patient on heparin drip at [facility]. Dental imaging completed. Physical Exam: Gen: NAD, mild memory deficits CV: No JVD, RRR, no r/g, 2+ systolic murmur Pulm: Mild crackles in mid-lower lobes Abdomen: NT, ND, R sided puncture site from cath c/d/i Extremities: No edema; L thigh semicircular dry plaque rash ECG today with PVCs, QTC prolongation, without acute ischemia. Patient on IV lasix diuresis, heparin drip. A+P Padmini Amador is a 79 year old male with PMH CAD, HLD, HTN, BPH, T2DM, and psoriasis who presentedwith for CABG and TAVR evaluation from [facility]. ?? #NSTEMI #Triple vessel CAD - Underwent cath at OSH with report above. Trop peak at 5, now downtrending. Significant FMH of CAD. Patient was on heparin drip at OSH. Denies CP. Unclear initiation of plavix - continue heparin drip - increase metoprolol succinate 50 mg qd if pt with PVCs today - continue asa 81 daily, atrovastatin 80 mg, lisinopril 5 mg - holding plavix for possible CABG; f/u cardiac surgery reccs - Pt on telemetry - echo ordered (CD with MATT and TTE images from OSH in paper chart) ?? #New onset HFrEF likely 2/2 cardiac ischemia, hypertension v NSTEMI #HTN - On clinical exam, pt with mild crackles this AM prior to 10am lasix IV. Pt without edema or JVD. BNP 1060s with mild pulmonary vascular congestion on imaging CXR. OSH troponin 5 s/p heart cath thatday, now downtrending - pt on heparin - furosemide 40 IV BID - cardiac rehab order placed - BMP, Continue Tele, Strict Is and Os, Daily Weights ?? #Moderate - Aortic valve leaflet area 1.2cm2 in setting of multiple vessel disease. - Follow up cardiac surgery reccs for CABG evaluation - dental consult and panorex ordered ?? #Normocytic anemia - May be 2/2 anemia of chronic dz vs iron deficiency. - OSH fe 24, fe today 90, on heparin drip now - CTM ?? #T2DM Home regimen: metformin 1000 mg BID, glimepiride 2 mg PO. Hgb A1c 03/15/2020 6.5 - SSI TID with accuchecks ACHS ?? #BPH - On home finasteride, tamsulosin, to continue #L Thigh Rash - Vaseline Pt NPO - to advance diet now to diabetic cardiac diet On Strict Is and Os I personally interviewed and evaluated the patient. Plan of care discussed with the team.. I reviewed the resident'snote and concur with the findings, assessments and plans. I have no additions at this time. See residetnote for details. Briefly, Recent and acute onset of dyspnea with subsequent NSTEMI documented and advnaced CAD at OSH. TTE showing moderate . Await CTS input regarding CABG/SAVRversus PCI/TAVR approach. Patient currently stable with clear lungs and murmur suggesting nonsevere stenosis. Andrea Gifford MD, FACC * Jackie Zayas - 03/15/2020 12:01 PM CDT Problem: Fall Risk Goal: Fall risk and fall related injury risk are minimized Outcome: Ongoing Flowsheets (Taken 03/15/2020 0706) Gregory Nitin Fall Risk Total: 10 [place] Fall Risk Precaution Interventions: Call light/belongings in reach Bed in low position and locked Wheelchairs and chairs locked SR upx2 Ensure adequate lighting Clutter free and spill free environment Educate to the purpose of universal fall precautions Educate to call for assistance Keep closet and bathroom doors closed when not in use Use of appropriate footwear (see row information) Low Fall Risk Interventions (7-10): Initiate universal fall precautions (UFPs) Medication Related Interventions: Limit prn combo med when possible (ex., sedative, analgesics, etc.) Toileting Fall Interventions: Toilet pt at regular & frequent intervals Volume/Electrolyte Fall Interventions: Monitor abnormal lab values * Roberta Smith OT - 03/15/2020 9:47 AM CDT [facility] Department of Physical Medicine & Rehabilitation Progress Note Patient: Padmini Amador Med Record Number: [id number] Date of : 1940 Age: [age] year old New orders received and chart reviewed. Per PT, patient is independent in ADLs & functional mobility at this time. No further skilled OT indicated. Plan to D/C OT. Thank you. Roberta Smith OTR/L 03/15/2020 9:47 AM * Gamaliel Mckay, PT - 03/15/2020 8:58 AM CDT [facility] Physical Medicine and Rehabilitation Physical Therapy Initial Evaluation Note Patient: Padmini Amador Med Record Number: [id number] Date of : 1940 Age: [age] year old Face mask: PT and pt wore procedural masks throughout the session. Discharge Recommendation: Patient should be able to return home when medically cleared by physicianteam. Therapy will reeval mobility needs after surgery. See current amount of assist needed below. Patient currently using no assistive device. Occupational Therapy contacted regarding patient status and/or discharge plan. Physician Orders: Evaluation and Treat PRECAUTIONS: Fall Activity Level up ad tino DIAGNOSIS: Patient Active Problem List: Congestive heart failure Past Medical History: Diagnosis Date ??? CAD (coronary artery disease) ??? HFrEF (heart failure with reduced ejection fraction) ??? HLD (hyperlipidemia) ??? HTN (hypertension) ??? DE (myocardial infarction) ??? Psoriasis SUBJECTIVE: Hey I try my best to stay active, strong, and moving, so I shouldn't need a walker or anything like that. PATIENT GOALS: Return home to . Home living: Type of Residence: Private Residence Lives with:: Spouse( recovering from total knee surgery) Steps to Enter: 2 Ramp: No Handrails: None Home Structure: One Story Primary Bedroom: First Floor Primary Bathroom: First Floor Bathroom : Walk in Shower(and tub shower) Equipment At Home: Blood Glucose Monitor Prior Function: Mobility: Ambulate-In Community Fallen Within 6 Mos: No Have Help at Home?: Yes, there is help at home now At start of therapy session, patient found in bed and with no alarm Pain: Patient denies pain. Follow-up for pain: No follow-up for pain indicated and patient agreed to proceed with treatment OBJECTIVE: General Appearance: Pt laying supine in bed alert and looking around room. Precautions: IV's: Peripheral line Skin, Incisions, Edema: normal Vitals: (*Assess the 3 levels of oxygen saturations both for room air and 02 unless rest on room air is 88% or less). Rest BP: 114/82 HR: 92 Sp02 Sp02 100% Room Air L O2 RA MENTAL STATUS: Alert and oriented times three. DIRECTION FOLLOWING: Able to follow multi-step commands 100% ROM: BLE WFL STRENGTH: Right Left Hip Flexion 5/5 5/5 Knee Extension 5/5 5/5 Knee Flexion 5/5 5/5 Ankle DF 5/5 5/5 Ankle PF 5/5 5/5 Observations: all movements pain free performing in sitting SENSATION:BLE intact TONE: normal BLE NEGLECT: none COORDINATION: no gross motor deficits noted FUNCTIONAL MOBILITY Not Tested Not Applicable Independent Stand by Assist Minimal Moderate Maximum Dependent Rolling x Scooting x Supine to/from sit x Sit to/from Stand x Bed to/ chair x Observation: Pt independent w/ all mobility tasks BALANCE: Sitting Static: good Dynamic: good Standing Static: good minus Dynamic: fair plus Observation: increased instability w/ tandem walking GAIT: Weight Bearing: BLE WBAT Distance: 200 feet Device: none Assistance: independent throughout, Stand By Assist during dynamic balance activities Balance: good minus during normal gait, fair plus during balance activities Steps: not tested- pt scheduled for x ray good endurance Observation: NAD throughout ACTIVITY TOLERANCE: Patient's activity tolerance: good TREATMENT/INTERVENTIONS: evaluation, strengthening exercises, bed mobility training, gait training,balance activities and monitoring of vitals EDUCATION: While performing PT, Patient was instructed in:Functional mobility training/weight bearing status and Safety awareness/fall precaution Patient demonstrated Good understanding of instructions given. INFORMED CONSENT TO TREATMENT: Plan of care including recommended therapy, goals and frequency, discussed with patient who understands and agrees to proceed. ASSESSMENT: Patient demonstrates independence/ baseline with mobility/exercise. No continued Physical Therapy indicated at this time. After surgery, re-eval to make sure pt can ascend two standard steps to get into home. Short Term Goals: Goal Formation With patient Patient will ascend/descend 2 steps: Independent Chcf Goal(s): Patient to be independent/baseline with functional mobility and self care and be able to safely discharge to prior level of care Equipment Issued: gait belt Plan: If patient is discharged from the facility, this note serves as a discharge summary if further physical therapy visits did not occur. Following therapy session, patient left w/ pt transport in wheelchair to get x-ray. Gamaliel Mckay, PT 03/15/2020 * Ralf Camilo RN - 03/14/2020 11:36 PM CDT Knows to call for help if needed when out of bed. documented in this encounter H&P Notes * Larry Saba MD - 03/19/2020 1:45 PM CDT ELECTROPHYSIOLOGY CONSULTATION NOTE Patient: Padmini Amador Age: [age] year old Date of : 1940 Date of Admission: 03/14/2020 Date: 03/19/2020 Reason for consult: AICD evaulation HISTORY: It was my pleasure to see Mr. Padmini Amador in consultation at [facility] on 03/19/2020 for evaluation of ishcemic CM and need for ICD therapy. He is a pleasant 79 year old malewith a history of CAD, dm2, htn, hld, mild normocytic anemia, 2000 duodenal ulcer s/p GI bleed,??div erticulosis,??2008 gallstone pancreatitis, BPH, psoriasis who was admitted as an outside hospital transfer from [facility] on 03/14/2020. Patient was admitted on 02/27/2020 to [facility] with new onset heart failure and was subsequently discharged. Scheduled left heart catheterizationon 03/10/2020 showing multi vessel CAD at [facility]. He was subsequently transferred to [facility] for CABG v PCI evaluation. TTE was obtained and showed combined systolic and diastolic heart failure with an EF of 27%, severe ischemic CM, with severe aortic stenosis, moderate to severe mitral regurgitation. Cardiac surgery declined open heart surgical intervention. Patient was taken to the cathlab on 03/18/2020 and received 3 CORBY stents to distal LCx, proximal OM2, superior OM2. EP was consulted for recommendations on ICD therapy prior to discharge. PAST MEDICAL HISTORY: He has a past medical history of CAD (coronary artery disease), HFrEF (heart failure with reduced ejection fraction), HLD (hyperlipidemia), HTN (hypertension), DE (myocardial infarction), and Psoriasis. PAST SURGICAL HISTORY: His has a past surgical history that includes back surgery (1998); hernia repair, umbilical; and cholecystectomy. FAMILY HISTORY: His family history includes CAD (Coronary Artery Disease) in his brother, brother, father, mother, and sister; Diabetes - Type 2 in his mother; Heart Failure in his brother and brother; Renal Disease in his brother. He He indicated that the status of his mother is unknown. He indicated that the status of his father is unknown. He indicated that the status of his sister is unknown. SOCIAL HISTORY: He reports that he has never smoked. He has never used smokeless tobacco. He reports that he does not drink alcohol or use drugs. ALLERGIES: No Known Allergies HOME MEDICATIONS: Medications Prior to Admission Medication Sig Dispense Refill ??? Doxazosin Mesylate 8 MG ??? finasteride (PROSCAR) 5 MG tablet Take 5 mg by mouth once daily ??? furosemide (LASIX) 40 MG tablet Take 40 mg by mouth once daily ??? glimepiride (AMARYL) 2 MG tablet Take 2 mg by mouth daily with breakfast ??? lisinopril (PRINIVIL;ZESTRIL) 5 MG tablet Take 5 mg by mouth once daily ??? metFORMIN CR 24hr modified (GLUMETZA) 1000 MG (MOD) tablet Take 1,000 mg by mouth 2 times daily ??? metoprolol succinate XL 24hr (TOPROL XL) 25 MG tablet Take 25 mg by mouth once daily ??? pravastatin (PRAVACHOL) 40 MG tablet Take 40 mg by mouth at bedtime ??? tamsulosin (FLOMAX) 0.4 MG capsule Take 0.4 mg by mouth once daily At the same time every day after a meal. CURRENT MEDICATIONS: ??? 0.9% NaCl 3 mL Intracatheter q8h ??? acetaminophen 650 mg Oral q6h ??? aspirin 81 mg Oral QDAY ??? atorvastatin 80 mg Oral AT BEDTIME ??? clopidogrel 75 mg Oral QDAY ??? finasteride 5 mg Oral QDAY ??? furosemide 20 mg Oral QDAY ??? heparin 5,000 Units Subcutaneous q8h ??? insulin aspart 0-6 Units Subcutaneous TID WC ??? iopamidol Intravenous Contrast - Once ??? lisinopril 2.5 mg Oral QDAY ??? metoprolol succinate XL 24hr 50 mg Oral QDAY ??? perflutren Lipid Microsphere 0.5 mL Intravenous intra-Procedure multiple ??? polyethylene glycol 3350 17 g Oral QDAY ??? senna 8.6 mg Oral QDAY ??? tamsulosin 0.4 mg Oral QDAY REVIEW OF SYSTEMS: Review of Systems: negative except as bolded/indicated General: weigh gain, appetite change, fatigue, weakness, fever/chills HEENT: rashes, itching, headache, acute visual changes, hearing loss, tinnitus, rhinorrhea, hoarseness, sore throat Cardiac: chest pain, palpitations, dyspnea on exertion, edema Respiratory: shortness of breath, wheezing, sputum, hemoptysis, cough Gastrointestinal: abdominal pain, nausea, vomiting, change in bowel habits, diarrhea, constipation,hematochezia, or melena Genitourinary: dysuria, hematuria hesitancy, frequency Musculoskeletal: muscle weakness, joint pain or stiffness, limited range of motion Neurologic: numbness or tingling in extremities, dizziness, lightheadedness Dermatologic: rashes, skin lesions Hematologic: easy bruising/bleeding PHYSICAL EXAM: Intake/Output Summary (Last 24 hours) at 03/19/2020 1348 Last data filed at 03/19/2020 0845 Gross per 24 hour Intake 1470 ml Output 725 ml Net 745 ml Temp: [97.2 ??F (36.2 ??C)-98.9 ??F (37.2 ??C)] 97.9 ??F (36.6 ??C) Pulse: [57-70] 70 Resp: [16-20] 20 BP: (94-110)/(61-75) 110/75 BP 110/75 Pulse 70 Temp 97.9 ??F (36.6 ??C) (Oral) Resp 20 Ht 5' 11 Wt 183 lb 4.8 oz SpO2 97% BMI 25.57 kg/m2 General appearance: gentleman, alert, oriented, cooperative and in no distress. HEENT: Normocephalic, atraumatic. Pupils equal, reactive to light. Anicteric sclera Neck: The thyroid is not enlarged and is symmetric, without tenderness, masses or nodules. Chest: Clear to auscultation bilaterally. No wheeze/rhonchi, rales Heart: Rate 70, regular rhythm. S1, S2 normal. No murmurs, rubs or gallops. There is no jugular venous distension noted. Abdomen: Soft, non-tender, non-distended. No palpable masses. Bowel sounds audible on auscultation Extremities: No edema in lower extremities bilaterally. Musculoskeletal: Normal range of motion. No gross structural abnormalities/deformities Pulses: 2+ radial and dorsalis pedis pulses bilaterally Skin: Skin color, texture, turgor normal. No rashes or lesions. Neuro: A&Ox3, CN II to XII grossly intact, moving all extremities spontaneously DATA REVIEWED: LABS: CBC: Recent Labs Component Name 03/19/20 0610 03/18/20 0703/17/20 0615 WBC 7.7 7.4 6.8 HGB 11.9* 13.3* 12.5* HCT 35.6* 40.8 37.4* MCV 87.7 89.3 89.3 Coagulation Panel: Recent Labs Component Name 03/16/20 0530 03/15/20 2356 03/15/20 1624 03/14/20 2317 03/14/202316 PT - - - - 14.0 INR - - - - 1.1 PTT 89.0* 76.8* >200.0* - 35.3 - = values in this interval not displayed. BMP: Recent Labs Component Name 03/19/20 0610 03/18/20 0703/17/20 0618 NA 131* 134* 134* CL 97* 98 98 CO2 27 26 28 BUN 29* 31* 30* CREATININE 1.1 1.1 1.0 CALCIUM 9.5 9.6 9.6 No results for input(s): MG in the last 44484 hours. Recent Labs Component Name 03/19/20 0610 03/18/20 0700 03/17/20 0618 PHOS 3.9 3.4 3.2 Hepatic Panel: Recent Labs Component Name 03/14/202315 AST 22 ALT 17 ALKPHOS 69 TBILI 1.2 ALB 3.7 ABG: No results for input(s): PH, PCO2, PO2 in the last 96925 hours. Invalid input(s): BICAR3 Cardiac Enzymes: Recent Labs Component Name 03/16/20 0933 03/15/20 1021 03/14/207 TROPONINI 0.644* 0.985* 1.262* Lipid Panel: Recent Labs Component Name 03/15/20 0630 LDLCALC 65 HDL 35* ECG: sinus rhythm with PVCs 1 2-D ECHO: 03/17/2020 Summary Severe ischemic cardiomyopathy with > 50% LV [...] enlarged. Estimated right atrial pressure 13 mmHg. Normal PVR of 6.4 Wood units. The [...] PISA is 30.53 ml, moderate to severe. Definity --- ml Mitral valve regurgitant fraction by pulsed Doppler [...] root and ascending aorta. No pericardial effusion. HEART CATHETERIZATION: 03/18/2020 ANGIOGRAPHY: ?i.?Left main: Bifurcates into LAD and Circumflex. Mild luminal irregularities Noted. ?ii.?LAD: Proximal LAD has mild diffuse 10-20% stenosis. Mid LAD has diffuse Moderate 30-40% disease. Apical LAD has PICK PACK WORKER. ?iii.?LCx: Dominant vessel. Proximal and mid mild [...] Non dominant vessel. Has mild luminalirregularities throughout. ?ANGIOGRAPHY: ?i.?Left main: Bifurcates into LAD and Circumflex. Mild luminal irregularities Noted. ?ii.?LAD: Proximal LAD has mild diffuse 10-20% stenosis. Mid LAD has diffuse Moderate 30-40% disease. Apical LAD has PICK PACK WORKER. ?iii.?LCx: Dominant vessel. Proximal and mid mild [...] circumflex as well as OM 2 branch. ? RECOMMENDATIONS AFTER DIAGNOSTIC CATHETERIZATION:? Proceed with PCI of LCx/OM2 ? DOMINANCE: Left ?? DIAGNOSTIC INTERPRETATIONS: 1. 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 ? RECOMMENDATIONS AFTER DIAGNOSTIC CATHETERIZATION:? Proceed with PCI of LCx/OM2 ?? ASSESSMENT & PLAN: In summary, he is a 79 year old male with a history of severe ischemic CM with EF of 27%, CAD s/p PCI x 3 (03/18/2020), dm2, htn, hld, mild normocytic anemia, 2000 duodenal ulcer s/p GI bleed,??diverticulosis,??2007 gallstone pancreatitis, BPH, psoriasis who is being evaluated for ICD Primary prevention of SCD Severe ischemic CM with EF of 27% CAD s/p PCI x 3 -NYHA class III -Patient has hx of ischemic CM with recent PCI to LCx and OM branches -Currently on GDMT with lisinopril 2.5mg po qday, metoprolol succinate 50mg po qday -EKG shows sinus rhythm with PVCs, QRS 108ms -Recommend to optimize GDMT for HF -Will defer ICD implantation for 90 days post revascularization -Although scar based, would need to ensure EF is persistently low despite optimal GDMT -Recommend patient to go home with LifeVest -F/u with banana handler and EP as outpatient Thank you for your consultation and please do not hesitate to contact us with any question or concern. Larry Saba MD [facility] Pager: [phone] Associated attestation - Jay Stewart MD - 03/20/2020 9:58 PM CDT Attending Note: I have seen and examined the patient with the resident/fellow, and I agree with the findings and plan of care as documented by the resident/fellow, with the following additional comments and exceptions. Depressed EF due to ischemic heart disease. Recommend followup in 2-3 months with repeat echocardiogram as outpatient. If EF still low at that time, will recommend ICD at that time. Please see resident/fellow's note for details. 03/20/2020 9:57 PM Jay Stewart MD * Elif Steele MD - 03/18/2020 7:18 AM CDT CARDIAC DIGITAL COMMUNITY MANAGER PRE PROCEDURE APPROPRIATE USE CRITERIA TOOL History of Present Illness: Patient is a 79 year old gentleman with PMH of Hypertension, HLD, DM2 coming in from an outside hospital where he had presented with an NSTEMI and was found to have triplevessel disease. He also has moderate . After consulting with CT surgery, ti was decided to go ahead with TAVR and PCI. He is here for a LHC and PCI. Heart Failure: Yes, Newly Diagnosed NYHA Class ll Systolic Stress Test Preformed: None Home Med List: Medications Prior to Admission Medication Sig Dispense Refill ??? Doxazosin Mesylate 8 MG ??? finasteride (PROSCAR) 5 MG tablet Take 5 mg by mouth once daily ??? furosemide (LASIX) 40 MG tablet Take 40 mg by mouth once daily ??? glimepiride (AMARYL) 2 MG tablet Take 2 mg by mouth daily with breakfast ??? lisinopril (PRINIVIL;ZESTRIL) 5 MG tablet Take 5 mg by mouth once daily ??? metFORMIN CR 24hr modified (GLUMETZA) 1000 MG (MOD) tablet Take 1,000 mg by mouth 2 times daily ??? metoprolol succinate XL 24hr (TOPROL XL) 25 MG tablet Take 25 mg by mouth once daily ??? pravastatin (PRAVACHOL) 40 MG tablet Take 40 mg by mouth at bedtime ??? tamsulosin (FLOMAX) 0.4 MG capsule Take 0.4 mg by mouth once daily At the same time every day after a meal. Anti-Anginal Medication within 2 Weeks: No Past Medical & Surgical History Illnesses: Past Medical History: Diagnosis Date ??? CAD (coronary artery disease) ??? HFrEF (heart failure with reduced ejection fraction) ??? HLD (hyperlipidemia) ??? HTN (hypertension) ??? DE (myocardial infarction) ??? Psoriasis Past Surgical History: Procedure Laterality Date ??? Back Surgery 1998 ??? Cholecystectomy ??? HERNIA REPAIR, UMBILICAL No Known Allergies This patient's prior H&P was reviewed, the patient was examined, and no change has occurred in the patient's condition since the prior H&P was completed. Consent: Risk, benefits and alternatives were discussed with patient and consent for procedure was obtained. Airway: Mallampati III (soft palate, base of uvula visible) ASA Class: {Class 3 - Severe Systemic Disease, Definite Functional Limitations Impression/Cardiac Catheterization Indication(Choose all that apply): Acute Coronary Syndrome greater than [address] Elevation - Acute Coronary , LV Dysfunction and Valvular Disease Aortic Stenosis Moderate (2+) Chest Pain Symptom Assessment: Typical Angina Cardiac Instability: No Procedure Acuity Status: Urgent Planned Course of Treatment/Procedure: Coronary angiography, Left Heart Cath and Percutaneous Coronary Intervention Sedation: Fentanyl and Versed Expected Level: Minimal anxiolysis Indication: Sedation is required to allow for performance of procedure. Monitoring: heart rate, windows vmware administrator, continuous pulse oximetry, frequent blood pressure checks,level of consciousness, IV access, constant attendance by RN until patient recovered, and emergencyairway equipment available. Based on the above criteria, I believe that patient meets clinical indications for a cardiac catheterization. Elif Steele MD 03/17/2020 7:35 AM * Keena Cook MD - 03/14/2020 11:[address] [facility] HISTORY AND PHYSICAL PATIENT: Padmini Amador ADMIT DATE: 03/14/2020 CHIEF COMPLAINT: CABG vs PCI evaluation in setting of moderate HISTORY OF PRESENT ILLNESS: Padmini Amador is a 79 year old male with PMH of CAD, HLD, HTN, BPH, T2DM, and psoriasis who presented with for CABG and TAVR evaluation from [facility]. Patient initially presented to [facility] for dyspnea on exertion, cough, and orthopnea x1 week. He was discharged from the ER that day and returned later that evening due to unresolved dyspnea. He was found to have an NSTEMI and underwent LHC (via R femoral), which showed triple vessel disease. Troponin peak was at 5 and he was started on a heparin drip, aspirin, metoprolol, and statin. He was transferred to [facility] for CABG evaluation. At that time he was also found to be in acute HFrEF exacerbation d/t fluid overload and was diuresed with furosemide. He underwent MATT and TTE for preop planning, which showed moderate and was transferred to [facility] for TAVR with CABG vs PCI with stenting. On admission, patient was afebrile and hemodynamically stable. Patient denies any recent hospital admissions and rep orts 2 weeks ago he was in a good state of health. History was obtained from the patient and chart review. PAST MEDICAL HISTORY: CAD, HLD, HTN, BPH, T2DM, and psoriasis PAST SURGICAL HISTORY: Umbilical hernia repair, cholecystectomy, back surgery (1998) FAMILY HISTORY: Father: DE at age 77, Mother: DE age 55, Brother: DE ~75 with PPM and ICD, Brother: [place] unknown age Brother: PPM and ICD SOCIAL HISTORY: Patient is a never smoker, drinks rarely (few times/year), and denies IVDU. He walks without assisted device. Lives with , who he is caring for as she recently underwent knee replacement surgery.Heperforms all ADL's. Previously worked at a [employer] doing many different jobs. ALLERGIES: NKDA HOME MEDICATIONS: Finasteride 5 mg qd, glimepiride 2 mg qd, tamsulosin 0.4 mg qd, metformin 1000 mg BID REVIEW OF SYSTEMS: Review of Systems Constitutional: Negative for chills and fever. HENT: Negative for rhinorrhea and sore throat. Respiratory: Positive for cough and shortness of breath. Negative for chest tightness. Cardiovascular: Negative for chest pain and leg swelling. Gastrointestinal: Negative for diarrhea, nausea and vomiting. Genitourinary: Negative for dysuria and hematuria. Musculoskeletal: Negative for arthralgias and myalgias. Skin: Positive for rash (L thigh). Negative for wound. Neurological: Negative for syncope and headaches. OBJECTIVE: VITALS I's & O's Temp: [97.7 ??F (36.5 ??C)] 97.7 ??F (36.5 ??C) Pulse: [72] 72 Resp: [20] 20 BP: (121)/(79) 121/79 No intake or output data in the 24 hours ending 03/14/20 2303 PHYSICAL EXAM: General: well appearing white male, in no acute distress, non-toxic appearing Eyes: PERRLA, conjunctiva normal, no scleral icterus ENT: MM's moist, no thrush, oropharynx clear and without exudates Neck: no JVD Cardiac: regular rate and rhythm, 2/6 holosystolic murmur over L sternal border Pulmonary: lungs CTAB, no wheezes or rhonchi Abdomen: soft, non-tender, non-distended, +BS Skin: warm, dry, R femoral cath site clean and dry, L thigh with erythematous and white plaque about 6cm in diameter Extremities: no pitting edema Musculoskeletal: 5/5 strength in bilateral upper and lower extremities, moves all 4 extremities Neurological: AOx2 (reports year as 2001), follows commands Psych: appropriate affect, non-pressured speech, normal thought content PERTINENT LABS: BMP: Na 134, K 4.4, Cl 96, Co2 28, BUN 32, Cr 1.1 CMP: Ca 9.7, Mg 2.1, Phos 2.9, Alb 3.7, AST 22, ALT 17, Alk phos 69 CBC: Wbc 8.4, Hgb 12.5, Plt 184 Troponin 1.262, BNP 1065 INR 1.1, lactic 1.1 MICROBIOLOGY: No new results IMAGIN/23 CXR: no pleural effusion, increased pulmonary vascular markings 03/15 EKG: pending 03/13 Echo: EF 20-25%, severe systolic dysfunction. Severe global hypokinesis of LV. Normal LV thickness. mild to moderate MR, moderate TR with excentric jet, mild AR, moderate AR (valve area 1.2 cm2). 03/11 Angiography: triple vessel disease, report not available ASSESSMENT & PLAN: Padmini Amador is a 79 year old male with PMH CAD, HLD, HTN, BPH, T2DM, and psoriasis who presentedwith for CABG and TAVR evaluation from [facility]. #NSTEMI #Triple vessel CAD - Underwent cath at OSH which showed triple vessel disease. Trop peak at 5, now downtrending. Significant FMH of CAD. Patient was on heparin drip at OSH. Denies CP. - continue heparin drip - continue asa 81 mg daily, metoprolol succinate 50 mg qd, atrovastatin 80 mg, lisinopril 5 mg - holding plavix for possible CABG - telemetry - echo ordered, may need MATT (CD with MATT and TTE images from OSH in paper chart) - obtain records from [facility] for cath report #New onset HFrEF likely 2/2 cardiac ischemia #HTN - CXR with mild pulmonary vascular congestion. No lower extremity edema or JVD, though continues tohave significant cough. New onset CHF likely 2/2 cardiac ischemia from NSTEMI. - furosemide 40 PO BID, monitor K+ and Mg closely while diuresing - strict I/O's - cardiac rehab order placed #Moderate #Moderate MR #Moderate TR #Mild AR - Aortic valve leaflet area 1.2cm2. Due to moderate in setting of triple vessel disease and needfor CABG is an indication for TAVR. - CTS consult for TAVR evaluation - dental consult and panorex ordered #Normocytic anemia - May be 2/2 anemia of chronic dz vs iron deficiency. - iron panel - CBC daily, transfuse Hgb <7 #T2DM - Last A1c unknown. Home regimen: metformin 1000 mg BID, glimepiride 2 mg PO. - Hgb A1c - SSI TID with accuchecks ACHS #BPH - On home finasteride, tamsulosin. - continue home finasteride, tamsulosin DVT ppx: heparin drip GI ppx: not indicated Lines: PIV Diet: cardiac, NPO at AL Bowel: miralax, senna PT/OT: ordered Dispo: inpatient admission, likely will need SNF vs rehab postop Code: Full Code PCP: No primary care provider on file. [facility]: [facility] This patient will be seen and discussed with the attending, Dr. Gifford. Keena Cook MD Internal Medicine, PGY-2 Cardiology Night Resident Pager# [phone] 03/14/2020 11:03 PM documented in this encounter Procedure Notes * Anup Hawkins MD - 03/18/2020 2:35 PM CDT Unit that procedure is to be preformed: laborer petroleum refinery. Pre-Procedure Diagnosis:HF Procedure: Cardiac catheterization Left/pci Post Procedure Diagnosis: Complications: none Monitoring: Monitoring consisted of: heart rate, windows vmware administrator, continuous pulse oximetry, continuous capnometry, frequent blood pressure checks, level of consciousness, IV access, constant attendance by RN until patient recovered, constant attendance by MD until patient stable and intubation andemergency airway equipment available. Response: Vital signs stable, airway patent, O2 saturations greater than 92%, positioning required to maintain patent airway and suctioning of oral secretions required. Patient Status Post Procedure: Activity: Able to move four extremities voluntarily on command = 2 Respiration: Able to breathe deeply and cough freely = 2 Circulation: Blood pressure +/- 20mm Hg of normal = 2 Consciousness: Arousable on calling = 1 Color: 2 - color is WNL Greg Score: 9 Temperature: Normalthermic Pain: 0 Post sedation nausea & vomiting present: no nausea and no vomiting Post-sedation hydration status Is adequate: Yes Total Physician Drug Administration / Monitoring Time: 120 minutes. Patient was monitored during recovery and returned to pre-procedure baseline. Discharge plan: Floor. * Elif Steele MD - 03/18/2020 7:19 AM CDT PRE-SEDATION PHYSICIAN ASSESSMENT Date: 03/17/2020 Time: 7:43 AM Padmini Amador is a 79 year old male Pre-procedure diagnosis: Acute Coronary Syndrome Planned Procedure: Coronary angiography, Left Heart Cath, Percutaneous Coronary Intervention Medications, vital signs and labs results reviewed prior to procedure: Yes No Known Allergies SEDATION PLAN: moderate ASA Physical Status Classification: 3 (A patient with severe systemic disease) Mallampati Airway Classifications III (soft palate, base of uvula visible) Other indicators of a difficult intubation include: None Patient airway and condition has been evaluated immediately prior to sedation and/or analgesia: Yes documented in this encounter Consult Notes * Aquiles Dumont MD - 03/19/2020 11:16 AM CDTAssociated Order(s): IP CONSULT TO CARDIOLOGY - STRUCTURAL HEART Heart & Vascular Structural Heart Disease Evaluation. Reason for Evaluation: Severe symptomatic aortic stenosis. History of Present Illness: The patient is a very pleasant 79 year old male with a history including hypertension, dyuslipidemia, referred by Dr. Stewart, who presented with symptoms of acute onset dyspnea, noted in acute pulmonaryedema. Evaluation revealed severe left ventricular systolic dysfunction, severe, low flow, low gradient aortic stenosis, and severe one vessel CAD of distal CFX and OM branch. He underwent successfulPCI of OM branch and distal CFX yesterday. He is undergoing evaluation for aortic valve replacement. He reports that over the past six months he has had progressive exertional dyspnea, and more recently he has noted intermittent episodes of acute shortness of breath. He denies prior cardiac events or prior evaluation. He has been physically very active without limitations until recently. Prior Medical History: Past Medical History: Diagnosis Date ??? CAD (coronary artery disease) ??? HFrEF (heart failure with reduced ejection fraction) ??? HLD (hyperlipidemia) ??? HTN (hypertension) ??? DE (myocardial infarction) ??? Psoriasis Prior Surgical History: Past Surgical History: Procedure Laterality Date ??? Back Surgery 1998 ??? Cholecystectomy ??? HERNIA REPAIR, UMBILICAL Home Medications: Prior to Admission medications Medication Sig Start Date End Date Taking? Authorizing Provider aspirin (ASPIRIN) 81 MG chew tablet Take 1 tablet by mouth once daily 03/19/20 Yes Galindo Reyes MD atorvastatin (LIPITOR) 80 MG tablet Take 1 tablet by mouth at bedtime 03/19/20 Yes Galindo Reyes MD clopidogrel (PLAVIX) 75 MG tablet Take 1 tablet by mouth once daily 03/19/20 Yes Galindo Reyes MD Doxazosin Mesylate 8 MG Yes Reyes Haney MD finasteride (PROSCAR) 5 MG tablet Take 5 mg by mouth once daily Yes Reyes Haney MD furosemide (LASIX) 20 MG tablet Take 1 tablet by mouth once daily 03/19/20 Yes Galindo Reyes MD furosemide (LASIX) 40 MG tablet Take 40 mg by mouth once daily Yes Reyes Haney MD glimepiride (AMARYL) 2 MG tablet Take 2 mg by mouth daily with breakfast Yes Reyes Haney MD lisinopril (PRINIVIL; ZESTRIL) 2.5 MG tablet Take 1 tablet by mouth once daily 03/19/20 Yes Galindo Reyes MD lisinopril (PRINIVIL;ZESTRIL) 5 MG tablet Take 5 mg by mouth once daily Yes Reyes Haney MD metFORMIN CR 24hr modified (GLUMETZA) 1000 MG (MOD) tablet Take 1,000 mg by mouth 2 times daily YesReyes Haney MD metoprolol succinate XL 24hr (TOPROL XL) 25 MG tablet Take 25 mg by mouth once daily Yes Reyes Haney MD metoprolol succinate XL 24hr (TOPROL XL) 50 MG tablet Take 1 tablet by mouth once daily 03/19/20 Yes Galindo Reyes MD pravastatin (PRAVACHOL) 40 MG tablet Take 40 mg by mouth at bedtime Yes ProviderReyes MD tamsulosin (FLOMAX) 0.4 MG capsule Take 0.4 mg by mouth once daily At the same time every day aftera meal. Yes Provider, MD Reyes Allergies: No Known Allergies Social History: Social History Tobacco Use ??? Smoking status: Never Smoker ??? Smokeless tobacco: Never Used Substance Use Topics ??? Alcohol use: Never Frequency: Never ??? Drug use: Never Family History: Family History Problem Relation Name Age of Onset ??? CAD (Coronary Artery Disease) Mother at 52 ??? Diabetes - Type 2 Mother ??? CAD (Coronary Artery Disease) Father at 77; per patient he had a heart stroke ??? CAD (Coronary Artery Disease) Sister s/p bypass surgery; in 90s ??? CAD (Coronary Artery Disease) Brother at 75; per patient, brother had multiple DE ??? Heart Failure Brother s/p PPM and ICD placed ??? Renal Disease Brother ??? CAD (Coronary Artery Disease) Brother s/p bypass per patient ??? Heart Failure Brother s/p PPM and ICD placed negativeReview of Symptoms: General ROS: negative Psychological ROS: negative ENT ROS: negative Hematological and Lymphatic ROS: negative Endocrine ROS: negative Respiratory ROS: positive for - shortness of breath Cardiovascular ROS: positive for - dyspnea on exertion. He denies chest discomfort. Gastrointestinal ROS: no abdominal pain, change in bowel habits, or black or bloody stools Musculoskeletal ROS: negative Neurological ROS: no TIA or stroke symptoms Dermatological ROS: negative Physical Exam: BP 101/67 Pulse 59 Temp 97.2 ??F (36.2 ??C) (Oral) Resp 20 Ht 1.803 m (5' 11 ) Wt 83.1 kg (183 lb 4.8 oz) SpO2 98% BMI 25.57 kg/m2 General appearance: alert, cooperative, no distress Head: normocephalic, without trauma Eyes: sclera and conjunctiva clear, EOMI and PERRLA, lids normal Neck: range of motion is intact, no masses, thyroid not enlarged, no adenopathy Lungs: breath sounds normal and symmetric; no rales or wheezes Heart: regular rhythm, normal S1 and S2, SM noted, no gallops or rubs Abdomen: soft without mass, non-tender, with normal bowel sounds Extremities: no clubbing, cyanosis or edema Circulation: Carotid, femoral and pedal pulses are intact and symmetrical, aorta is not enlarged, no carotid bruits Skin: no rashes or other abnormalities are noted Neurologic: mental status normal; alert and oriented X 3; cranial nerves II - XII are grossly intact Cardiographics: ECG: Per my review SR. PVCs. Bi-atrial enlargement. IVCD Echocardiogram: Severe ischemic cardiomyopathy with > 50% LV [...] enlarged. Estimated right atrial pressure 13 mmHg. Normal PVR of 6.4 Wood units. The [...] PISA is 30.53 ml, moderate to severe. Definity --- ml Mitral valve regurgitant fraction by pulsed Doppler [...] root and ascending aorta. No pericardial effusion. Stress test: My review of labs, imaging, notes and other tests is significant for Recent Labs Component Name 03/19/20 0610 03/18/20 0700 03/17/20 0615 WBC 7.7 7.4 6.8 HGB 11.9* 13.3* 12.5* HCT 35.6* 40.8 37.4* PLTCOUNT 177 195 194 Recent Labs Component Name 03/19/20 0610 03/18/20 0700 03/17/20 0618 POTASSIUM 4.5 4.9* 4.6* CO2 27 26 28 BUN 29* 31* 30* CREATININE 1.1 1.1 1.0 GLUCOSE 168* 185* 173* CALCIUM 9.5 9.6 9.6 Recent Labs Component Name 03/16/20 0933 03/15/20 1021 03/14/20 2317 TROPONINI 0.644* 0.985* 1.262* Recent Labs Component Name 03/14/20 2317 INR 1.1 Recent Labs Component Name 03/14/20 2316 BNP 1,065* No results for input(s): DIGOXIN in the last 07381 hours. Recent Labs Component Name 03/15/20 0630 CHOL 115 TRIG 75 HDL 35* LDLCALC 65 No results for input(s): TSH in the last 85381 hours. Readmission Risk Score: Assessment: 1. Acute decompensation of systolic heart failure 2. Severe cardiomyopathy - no known prior diagnosis 3. Severe, low-flow, low-gradient aortic stenosis - symptomatic in nature given presentation 4. NSTEMI, s/p PCI 5. Hypertension 6. Dyslipidemia 7. DM II Recommendations: 1. Gentle diuresis 2. Using shared decision making tools, I have discussed with the patient the nature - and natural history - of his aortic stenosis lesion. He wishes to proceed with multidisciplinary valve team evaluation and consider definitive therapy for his . 3. EP evaluation for appropriate timing of ICD implant 4. Optimal medical therapy for systolic heart failure per primary team I appreciate the opportunity to participate in the care of this very pleasant patient. We will continue to follow with you. Aquiles Dumont MD, [facility], [facility] Heart & Vascular 03/19/2020 11:16 AM * Lenka Ivory PA-C - 03/15/2020 11:29 AM CDTAssociated Order(s): IP CONSULT TO CARD SURGERY - CARDIAC TEAM Images from the original note were not included. 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 Patient initially presented to OSH ([facility]) for dyspnea on exertion, cough, and orthopnea x1 week. He was discharged from the ER that day. Patient returned that evening due to unresolveddyspnea and worsening orthopnea to the same OSH. Of note, he was seen by PCP 1 week earlier for similar complaints, treated for allergies/congestion. Workup in ED revealed NSTEMI and underwent LHC revealed MVCAD. Cath (media tab/images in synapse) revealed: proximal 60% LAD lesion, mid 60% LAD lesion, distal (near apex) 90% LAD lesion, OM1 with an ostial 90% lesion that continues on and bifurcates into two vessels both with 90% ostial lesions, RCA without significant lesions but small caliber vessel. Patient had elevated troponin, peaked to 5 from verbal report from primary team, he was started on a heparin drip, aspirin, metoprolol, and statin. Per verbal report, patient was then transferred to [facility] and treated for acute HFrEF exacerbation d/t fluid overload and was diuresedwith furosemide. He underwent MATT and TTE for preop planning, which showed moderate and was transferred to [facility] for TAVR evaluation and likely CABG vs PCI. On admission, patient was afebrile and hemodynamically stable. Denies current CP or SOB, endorses congestion in his chest when he takes deep breaths. Patient denies any recent hospital admissions and reports 2 weeks ago he was in a good state of health. He walks without assisted device. Lives with , who he is caring for as she recently underwent knee replacement surgery. He performs all ADL's independently. Previously worked at a [employer] doing many different jobs. Denies ever smoking. Endorses running, swimming and other current daily activities outside last two weeks. PAST MEDICAL HISTORY: Past Medical History: Diagnosis Date ??? CAD (coronary artery disease) ??? HFrEF (heart failure with reduced ejection fraction) ??? HLD (hyperlipidemia) ??? HTN (hypertension) ??? DE (myocardial infarction) ??? Psoriasis Past Surgical History: Past Surgical History: Procedure Laterality Date ??? Back Surgery 1998 ??? Cholecystectomy ??? HERNIA REPAIR, UMBILICAL Previous CV procedure history: Previous PCI/ PTCA: No Previous Cardiac Surgery: No Previous Vascular Surgery: No Previous Peripheral Stents: No Cardiac Device: No Family History Problem Relation Name Age of Onset ??? CAD (Coronary Artery Disease) Mother at 52 ??? Diabetes - Type 2 Mother ??? CAD (Coronary Artery Disease) Father at 77; per patient he had a heart stroke ??? CAD (Coronary Artery Disease) Sister s/p bypass surgery; in 90s ??? CAD (Coronary Artery Disease) Brother at 75; per patient, brother had multiple DE ??? Heart Failure Brother s/p PPM and ICD placed ??? Renal Disease Brother ??? CAD (Coronary Artery Disease) Brother s/p bypass per patient ??? Heart Failure Brother s/p PPM and ICD placed Per chart review below (entered above FH with patient during interview) Father: DE at age 77, Mother: DE age 55, Brother: DE ~75 with PPM and ICD, Brother: DE unknown age Brother: PPM and ICD Social History Socioeconomic History ??? Marital status: Spouse name: Not on file ??? Number of children: Not on file ??? Years of education: Not on file ??? Highest education level: Not on file Occupational History ??? Not on file Tobacco Use ??? Smoking status: Never Smoker ??? Smokeless tobacco: Never Used Substance and Sexual Activity ??? Alcohol use: Never Frequency: Never ??? Drug use: Never ??? Sexual activity: Not on file Other Topics Concern ??? Not on file Social History Narrative ??? Not on file Current Smoker w/in 1 year: No ETOH>2 drinks/day w/in 2 weeks: No No Known Allergies Home Medications: No current facility-administered medications on file prior to encounter. Current Outpatient Medications on File Prior to Encounter Medication Sig Dispense Refill ??? Doxazosin Mesylate 8 MG ??? finasteride (PROSCAR) 5 MG tablet Take 5 mg by mouth once daily ??? furosemide (LASIX) 40 MG tablet Take 40 mg by mouth once daily ??? glimepiride (AMARYL) 2 MG tablet Take 2 mg by mouth daily with breakfast ??? lisinopril (PRINIVIL;ZESTRIL) 5 MG tablet Take 5 mg by mouth once daily ??? metFORMIN CR 24hr modified (GLUMETZA) 1000 MG (MOD) tablet Take 1,000 mg by mouth 2 times daily ??? metoprolol succinate XL 24hr (TOPROL XL) 25 MG tablet Take 25 mg by mouth once daily ??? pravastatin (PRAVACHOL) 40 MG tablet Take 40 mg by mouth at bedtime ??? tamsulosin (FLOMAX) 0.4 MG capsule Take 0.4 mg by mouth once daily At the same time every day after a meal. Current Medications Current Facility-Administered Medications Medication Dose Route Frequency Provider Last Rate Last Admin ??? 0.9% NaCl injection 3 mL 3 mL Intracatheter q8h Keena Cook MD And ??? 0.9% NaCl injection 1-10 mL 1-10 mL Intracatheter PRN Keena Cook MD ??? aspirin chew tablet 81 mg 81 mg Oral QDAY Keena Cook MD 81 mg at 03/15/20 0954 ??? atorvastatin (LIPITOR) tablet 80 mg 80 mg Oral AT BEDTIME Keena Cook MD ??? dextrose IV 12.5-25 g 25-50 mL Intravenous PRN Keena Cook MD ??? finasteride (PROSCAR) tablet 5 mg 5 mg Oral Keena Mathis MD 5 mg at 03/15/20 0954 ??? furosemide (LASIX) injection 40 mg 40 mg Intravenous BID Keena Cook MD 40 mg at 03/15/20 0954 ??? glucagon (GLUCAGEN) injection 1 mg 1 mg Intramuscular PRN Keena Cook MD ??? glucose (Diabetic Use) oral gel Oral PRKeena Aiken MD ??? heparin 100 unit/mL in 0.45 % NaCl infusion 500-2,150 Units/hr Intravenous Continuous Keena Cook MD 10 mL/hr at 03/15/20 1029 1,000 Units/hr at 03/15/20 1029 ??? heparin 100 units/mL bolus from bag 4,000-7,000 Units Intravenous BOLUS FROM BAG Keena Velazquez MD 7,000 Units at 03/15/20 1024 ??? insulin aspart (NovoLOG) pen 0-6 Units 0-6 Units Subcutaneous TID WC Keena Cook MD 1 Unitsat 03/15/20 1244 ??? lisinopril (PRINIVIL;ZESTRIL) tablet 5 mg 5 mg Oral Keena Mathis MD 5 mg at 03/15/20 0954 ??? metoprolol succinate XL 24hr (TOPROL XL) tablet 50 mg 50 mg Oral Keena Mathis MD 50 mg at 03/15/20 0954 ??? polyethylene glycol 3350 (MIRALAX) packet 17 g 17 g Oral Keena Mathis MD ??? senna (SENOKOT) tablet 8.6 mg 8.6 mg Oral Keena Mathis MD 8.6 mg at 03/15/20 0954 ??? tamsulosin (FLOMAX) capsule 0.4 mg 0.4 mg Oral Keena Mathis MD 0.4 mg at 03/15/20 0954 CV medication History: Anti-anginal medications within the past 2 weeks: beta blockers ACEI/ARB in the last 48 hours: Yes Amiodarone prior to surgery: No Warfarin,dabigatran, rivaroxaban, apixaban, Heparin, Lovenox in the last 48 Hours- Yes Antiplatelet therapy in the last 5 days (clopredigrel or ticagrelor): No REVIEW OF SYSTEMS Constitutional: Denies: fever, chills, weakness, fatigue Eyes: Denies glasses/contacts, glaucoma or cataracts ENT/Mouth: Denies hearing loss, hearing aid, nose bleeds, tinnitus, or vertigo Cardiovascular: Orthopnea ?? Chest Pain: No ?? Anginal classification for past 2 weeks: CCS II, angina equivalent ?? Heart failure within the past 2 weeks: Yes ?? NYHA Functional Classification: Class II = Slight limitations on physical activity, symptomatic at ordinary levels of physcial activity, comfortable at rest ?? Cardiogenic shock within past 24 hours: No ?? Cardiac Arrest within past 24 hours: No ?? Recent DE: Yes NSTEMI noted at OSH and rationale for transfer to [facility] ?? History of arrhythmias: No ?? Known Cardiomyopathy or LV systolic dysfunction: No ?? Most recent LVEF within past 6 months: 20-25% on recent echo Resp: Dyspnea on exertion and Dyspnea at rest ?? Chronic Lung Disease: No ?? Sleep Apnea: No CPAP: No ?? On home O2: No ?? Recent pneumonia: No ?? Does the patient have Pulmonary HypertensionYes ?? AHCA Class 2 - comfortable at rest but have symptoms with ordinary physcial activity. GI: Denies hematemesis, constipation, diarrhea, melena, hematochezia, jaundice, fecal incontinence,reflux, or nausea/voming ?? Ascites w/in 30 days: No : Denies dysuria, hematuria, nocturia, urinary incontinence, or impotence and HX of BPH ?? Renal impairment No CHRONIC RENAL FAILURE STAGE: Stage I - No damage unless other s/s present * eGFR (mL/min) 90+ ?? Pre op creat 1.0 Musculoskeletal: Patient denies arthritis, back pain, or difficulty walking. Skin: Patient denies rashes or skin lesions/cancer Neurological: Patient denies fainting/blackout, seizures, hemiplegia, hemiparesis, impaired sensorium, or headaches. ?? Prior CVA/TIA: No Psychiatric: Patient denies memory loss, anxiety or depression. Endocrine: Patient denies heat intolerance, cold intolerance or weight gain. Hem/Lymph: Patient denies anemia, easy bruising, previous transfusion, or history of bleeding too much after surgery or dental procedures. ?? Immunocompromised (steroids, anti-rejection, chemo, AIDS): No Vascular: Patient denies claudication, rest pain, amaurosis fugax, history of aneurysm, DVT or PE. ?? Carotid stenosis greater than 50%: unknown PHYSICAL EXAM Constitutional: Appears well, no distress BP 91/61 Pulse 57 Temp 97.3 ??F (36.3 ??C) (Oral) Resp 18 Ht 5' 11 (1.803 m) Wt 190 lb 9.6 oz (86.5 kg) SpO2 96% BMI 26.58 kg/m2 Eyes: Pupils round, equal, reative to light and Conjunctiva and lids normal ENT/Mouth: Lips, theeth and gums normal without lesion and Oropharynx normal without exudates Respiratory: Normal repiratory effort without retractions and Clear to auscultation bilaterally Cardiovascular: Regular rate and rhythm with +systolic murmur LSB, No edema or varicosities of the extremities and No jugular vein distention Pulses: Normal carotid pulses bilaterally without bruit, Normal radial pulses bilaterally and Normal dorsalis pedis pulses bilaterally GI: Abdomen soft, non-distended without mass or tenderness Hem/Lymph: No cervical axillary or groin lymphadenopathy Musculoskeletal: No clubbing, cyanosis or edema of extremities and Normal muscle strength in all extremities Skin: No rash/ulcerations and Psoriatic lesion to L thigh Neurological: Oriented to person, place and time (initially patient struggled with his own age - self corrected and answer all other orientation questions well), No impairment in memory and No impairment in speech Psychiatric: Normal judgement/speech/memory and insight into condition and Normal mood Laboratory Review: Recent Labs Component Name 03/15/20 0630 03/14/20 2317 WBC 7.5 8.4 HGB 12.5* 12.5* HCT 37.4* 37.8* Recent Labs Component Name 03/15/20 0630 03/14/20 2316 NA 136 134* CL 99 96* CO2 24 28 BUN 25 32* CREATININE 1.0 1.1 CALCIUM 9.0 9.7 MAGNESIUM 2.0 2.1 Recent Labs Component Name 03/14/20 2316 PROT 7.7 ALB 3.7 TBILI 1.2 AST 22 ALT 17 ALKPHOS 69 Recent Labs Component Name 03/15/20 0630 03/14/20 2317 INR - 1.1 PTT 52.8* 35.3 Lab results smartLinks are not currently available PFT: Not completed at this time Review of Imaging Reports ECG 03/15/2020: SINUS RHYTHM WITH FREQUENT PREMATURE VENTRICULAR COMPLEXES MINIMAL VOLTAGE CRITERIA FOR LVH, MAY BE NORMAL VARIANT Statement Not Found (#1665) Statement Not Found (#533) Statement Not Found (#1666) ST & T WAVE ABNORMALITY, CONSIDER LATERAL ISCHEMIA PROLONGED QT ABNORMAL ECG WHEN COMPARED WITH ECG OF 15-MAR-2020 03:33, MANUAL COMPARISON REQUIRED, DATA IS UNCONFIRMED Chest X-Ray 03/14/2020: OSH ECHO 03/13/2020 per chart review: EF 20-25%, severe systolic dysfunction. Severe global hypokinesis of LV. Normal LV thickness. mild to moderate MR, moderate TR with excentric jet, mild AR, moderate AR (valve area 1.2 cm2). OSH Cardiac Cath 03/11/2020 per chart review: Angiography: triple vessel disease, report not available Summarized from report in media tab: proximal 60% LAD lesion, mid 60% LAD lesion, distal (near apex) 90% LAD lesion, OM1 with an ostial 90% lesion that continues on and bifurcates into two vessels both with 90% ostial lesions, RCA without significant lesions but small caliber vessel Cardiac risk factors include family history, dyslipidemia, diabetes mellitus, previous coronary artery disease, obesity, sedentary life style, male gender, hypertension, stress STS score: CABG + AVR (in setting of recent NSTEMI, EF 20-25%) Risk of Mortality: 3.273% Renal Failure: 2.531% Permanent Stroke: 2.321% Prolonged Ventilation: 11.808% DSW Infection: 0.146% Reoperation: 4.931% Morbidity or Mortality: 20.181% Short Length of Stay: 22.587% Long Length of Stay: 8.139% DIAGNOSIS: Padmini Amador is a 79 year old male with MVCAD and consulted to CTS for further surgical evaluation PLAN OF CARE: Recommendations: Patient will need the following to complete surgical work up (not ordered): - Labs: Type and Screen, HgA1C, UA, Urine culture - Vascular imaging: Carotid duplex + vein mapping BLE - Dental Consult 2/2 valvular procedure Staffed with Dr. Cleveland. Please complete above surgical work up to evaluate patient for surgical intervention. Further recommendations to follow. Lenka Ivory PA-C 03/15/2020 1:33 PM THCARE NETWORK PRICING CONSULTANT Associated attestation - Jack Cleveland MD - 04/24/2020 1:46 PM HEALTHCARE NETWORK PRICING CONSULTANT Patient seen and examined with MARGY. Discussed after PCI intervention. Patient with low flow law gradient per banana handler and is considered moderate surgical risk for SAVR option in comparison to lower risk for TAVR intervention at this time. Agree with plan to proceed with TAVR for intervention. Jack Cleveland MD 03/19/2020 12:36 PM documented in this encounter OR Notes * Brief Op Note - Elif Steele MD - 03/18/2020 2:32 PM CDT Brief Op Note Procedure: LHC /PCI Patient Name: Padmini Amador Date of Service: Pre-Op Diagnosis: cad/HF Post-Op Diagnosis: CORBY to Distal LCx, OM2 PROXIMAL and superior branch, total of 3 stents Elif Edge M.D., M.D, M.D. Anesthesia Type: Moderate Sedation Complications: none Findings: CORBY to Distal LCx, OM2 PROXIMAL and superior branch, total of 3 stents. Right radial TR band to be removed in 2 hours. Elif Steele MD documented in this encounter Miscellaneous Notes * Coding Query - Enrike Cronin MD - 03/18/2020 11:08 AM CDT DOCUMENTATION CLARIFICATION REQUEST TO: Dr. Cronin: FROM: Ruth Ribeiro RN,CDS Email: [email or web address] Please clarify and document if the patient is being treated for - Acute HFrEF - Other explanation of clinical findings (please specify) - Unable to determine (no explanation for clinical findings) The medical record reflects the following clinical evidence: Clinical Indicators: IM plan of care 03/15: On clinical exam, pt with mild crackles this AM prior to 10 am Lasix IV. Pt without edema or JVD. BNP 1060s with mild pulmonary vascular congestion on imaging CXR. Risk Factor(s): NSTEMI, moderate Treatment: IV Lasix, transitioned to PO Lasix, echo ordered Please document your clinical opinion in the progress notes and discharge summary including the definitive and/or presumptive diagnosis, (suspected or probable), related to the above clinical findings. Please include clinical findings supporting your diagnosis. Select Edit, then F2 to respond per Dr. Dumont note 03/19: Acute decompensation of systolic heart failure Attending Clarification The patient is a 79 year old female PMH CAD, DM2, HTN, HLD, mild normocytic anemia,, duodenal ulcers/p GI bleed,??diverticulosis,??gallstone pancreatitis, BPH, psoriasis who??was transferred from [facility] on 03/14[facility]2020 for evaluation for PCI vs CABG as he had a LHC there for NSTEMI that showed 60% prox LAD, 90% D1 and D2, 90% OM. His echo showed severe LV and LA dilatation, akinetic scarred inferolateral, anterolateral, anterior wall and apex, hypokinetic remotre wall motion and LVEF of 20-25%, moderate functional MR, and severe low gradient . CTS was consulted and decided that the patient is no a suitable candidate for CABG due to severe scar with >??50% of LV nonviable and s car. ?On examination JVD was elevated but lungs were clear. BNP was significantly elevated.Patient was diuresed as he was diagnosed with acute heart failure exacerbation. He underwent successful PCI to LCx and OM2 on 03/19/2020. Dr. Dumont was consulted for offering the patient TAVR and he decided that TAVR will be done as an outpatient. Pat was discharged on LifeVest because of low LVEF. 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 Acute heart failure exacerbation that resolved on diuresis. Cardiomyopathy, likely ischemic, but may be at leat partially related to sever . Plan LifeVEST on discharge. Valve clinic for follow up regarding a potential TAVR procedure. Continue home medicines as per discharge summary. For follow up with echo in EP clinic in three months following TAVR to decide on potential need forICD Implantations. documented in this encounter Plan of Treatment Not on file documented as of this encounter Procedures Procedure Name Priority Date/Time Associated Diagnosis Comments CARDIAC PROCEDURE ORDER 03/21/2020 1:25 PM CDT CARDIAC EKG ORDER 03/21/2020 1:2 5 PM CDT VASCULAR LAB ORDER 03/21/2020 1: 25 PM CDT GLUCOSE - POINT OF CARE Routine 03/19/2020 5:[address] ANGIO TAVR CHEST ABD PEL STAT 03/19/2020 1:26 PM CDT Congestive heart failure, unspecified HF chronicity, unspecified heart failure type (HCC) Aortic valve stenosis, etiology of cardiac valve disease unspecified GLUCOSE - POINT OF CARE Routine 03/19/2020 12:22 PM CDT GLUCOSE - POINT OF CARE Routine 03/19/2020 8:27 AM CDT CBC W/O DIFFERENTIAL Routine 03/19/2020 6:10 AM CDT BASIC METABOLIC PANEL (CALCIUM TOTAL) Routine 03/19/2020 6:10 AM CDT PHOSPHORUS BLOOD Routine 03/19/2020 6:10 AM CDT MAGNESIUM BLOOD Routine 03/19/2020 6:10 AM CDT GLUCOSE - POINT OF CARE Routine 03/18/2020 8:03 PM CDT GLUCOSE - POINT OF CARE Routine 03/18/2020 7:14 PM CDT GLUCOSE - POINT OF CARE Routine 03/18/2020 4:08 PM CDT CCL CARDIAC CATH LEFT Routine 03/18/2020 2:56 PM CDT NSTEMI (non-ST elevated myocardial infarction) (HCC) GLUCOSE - POINT OF CARE Routine 03/18/2020 11:57 AM CDT GLUCOSE - POINT OF CARE Routine 03/18/2020 8:42 AM CDT CBC W/O DIFFERENTIAL Routine 03/18/2020 7:00 AM CDT BASIC METABOLIC PANEL (CALCIUM TOTAL) Routine 03/18/2020 7:00 AM CDT PHOSPHORUS BLOOD Routine 03/18/2020 7:00 AM CDT MAGNESIUM BLOOD Routine 03/18/2020 7:00 AM CDT GLUCOSE - POINT OF CARE Routine 03/17/2020 8:02 PM CDT GLUCOSE - POINT OF CARE Routine 03/17/2020 5:11 PM CDT GLUCOSE - POINT OF CARE Routine 03/17/2020 12:04 PM CDT ECHO COMPLETE Routine 03/17/2020 10:36 AM CDT Congestive heart failure, unspecified HF chronicity, unspecified heart failure type (HCC) VAS BILATERAL VENOUS MAPPING Routine 03/17/2020 9:12 AM CDT NSTEMI (non-ST elevated myocardial infarction) (HCC) VAS CAROTID DUPLEX BILATERAL Routine 03/17/2020 9:12 AM CDT NSTEMI (non-ST elevated myocardial infarction) (HCC) BASIC METABOLIC PANEL (CALCIUM TOTAL) Routine 03/17/2020 6:18 AM CDT PHOSPHORUS BLOOD Routine 03/17/2020 6:18 AM CDT MAGNESIUM BLOOD Routine 03/17/2020 6:18 AM CDT CBC W/O DIFFERENTIAL Routine 03/17/2020 6:15 AM CDT GLUCOSE - POINT OF CARE Routine 03/16/2020 9:23 PM CDT GLUCOSE - POINT OF CARE Routine 03/16/2020 4:39 PM CDT GLUCOSE - POINT OF CARE Routine 03/16/2020 11:24 AM CDT TROPONIN I STAT 03/16/2020 9:33 AM CDT GLUCOSE - POINT OF CARE Routine 03/16/2020 8:40 AM CDT PTT [facility] Timed 03/16/2020 5:30 AM CDT CBC W/O DIFFERENTIAL Routine 03/16/2020 5:30 AM CDT BASIC METABOLIC PANEL (CALCIUM TOTAL) Routine 03/16/2020 5:30 AM CDT PHOSPHORUS BLOOD Routine 03/16/2020 5:30 AM CDT MAGNESIUM BLOOD Routine 03/16/2020 5:30 AM CDT PTT [facility] Routine 03/15/2020 11:56 PM CDT GLUCOSE - POINT OF CARE Routine 03/15/2020 8:19 PM CDT GLUCOSE - POINT OF CARE Routine 03/15/2020 5:58 PM CDT ABO TYPE: RETYPE-PATIENT RESULT ONLY Routine 03/15/2020 4:24 PM CDT PTT [facility] Routine 03/15/2020 4:24 PM CDT URINALYSIS REFLEX TO MICROSCOPIC NO CULTURE Routine 03/15/2020 3:53 PM CDT CULTURE URINE Routine 03/15/2020 3:53 PM CDT TYPE + SCREEN PANEL Routine 03/15/2020 3 :10 PM CDT GLUCOSE - POINT OF CARE Routine 03/15/2020 12:31 PM CDT TROPONIN I STAT 03/15/2020 10:21 AM CDT XR PANOREX Routine 03/15/2020 9:33 AM CDT Congestive heart failure, unspecified HF chronicity, unspecified heart failure type (HCC) GLUCOSE - POINT OF CARE Routine 03/15/2020 8:43 AM CDT EKG 12-LEAD STAT 03/15/2020 8:06 AM CDT Congestive heart failure, unspecified HF chronicity, unspecified heart failure type (HCC) PTT [facility] Timed 03/15/2020 6:30 AM CDT Congestive heart failure, unspecified HF chronicity, unspecified heart failure type (HCC) TRANSFERRIN AM Draw 03/15/2020 6:30 AM CDT HEMOGLOBIN A1C Routine 03/15/2020 6:30 AM CDT CBC W/O DIFFERENTIAL Routine 03/15/2020 6:30 AM CDT BASIC METABOLIC PANEL (CALCIUM TOTAL) Routine 03/15/2020 6:30 AM CDT MAGNESIUM BLOOD Routine 03/15/2020 6:30 AM CDT IRON BLOOD Routine 03/15/2020 6:30 AM CDT FERRITIN Routine 03/15/2020 6:30 AM CDT LIPID PROFILE AM Draw 03/15/2020 6:30 AM CDT EKG 12-LEAD Routine 03/15/2020 3:33 AM CDT Congestive heart failure, unspecified HF chronicity, unspecified heart failure type (HCC) XR CHEST 1VW PORTABLE Routine 03/14/2020 11:55 PM CDT Congestive heart failure, unspecified HF chronicity, unspecified heart failure type (HCC) PTT [facility] STAT 03/14/2020 11:17 PM CDT PT-INR [facility] STAT 03/14/2020 11:17 PM CDT TROPONIN I STAT 03/14/2020 11:17 PM CDT CBC W AUTO DIFFERENTIAL STAT 03/14/2020 11:17 PM CDT B-TYPE NATRIURETIC PEPTIDE STAT 03/14/2020 11:16 PM CDT COMPREHENSIVE METABOLIC PANEL STAT 03/14/2020 11:16 PM CDT PHOSPHORUS BLOOD STAT 03/14/2020 11:1 6 PM CDT MAGNESIUM BLOOD STAT 03/14/2020 11:16 PM CDT LACTIC ACID BLOOD STAT 03/14/2020 11: 16 PM CDT OT EVAL AND TREAT Routine 03/14/2020 11: 00 PM CDT PT EVAL AND TREAT Routine 03/14/2020 11: 00 PM CDT documented in this encounter Results * CARDIAC PROCEDURE ORDER (03/21/2020 1:25 PM CDT) Narrative 03/21/2020 1:25 PM CDT Ordered by an unspecified provider. Scanned Document CARDIAC SERVICES ORD ERABLES * CARDIAC EKG ORDER (03/21/2020 1:25 PM CDT) Narrative 03/21/2020 1:25 PM CDT Ordered by an unspecified provider. Scanned Document CARDIAC SERVICES ORD ERABLES * VASCULAR LAB ORDER (03/21/2020 1:25 PM CDT) Anatomical Region Laterality Modality Other Narrative 03/21/2020 1:25 PM CDT Ordered by an unspecified provider. Scanned Document VASCULAR LAB ORDERAB LES * (ABNORMAL) GLUCOSE - POINT OF CARE (03/19/2020 5:57 PM CDT) Glucose WB/POC 382(H) 70 - 115 mg/dL 03/19/2020 5:59 PM CDT [facility] Specimen Type Venous 03/19/2020 5:59 PM CDT [facility] Blood BLOOD SPECIMEN / Unknown 03/19/2020 5:57 PM CDT 03/19/2020 5:59 PM CDT Jay Stewart MD LAB - POINT OF CARE ORDERABLES Performing Organization Address City/State/[facility] Co de Phone Number [address] [address], [facility] [phone] * CT ANGIO TAVR CHEST ABD PEL (03/19/2020 1:26 PM CDT) Anatomical Region Laterality Modality Chest, Abdomen, Pelvis Computed Tomography 03/19/2020 2:40 PM CDT Impressions 03/20/2020 11:47 AM CDT IMPRESSION: 1. Vascular measurements as above. Dictated by Ela Huggins DO (residential sales representative). Also reviewed by Dr. Medina and Dr. [...] as above. Dictated by Ela Huggins DO (residential sales representative). Also reviewed by Dr. Medina and Dr. Stratton. This report was approved by Ela Huggins on 03/20/2020 11:38 AM . I, Dr. Rodolfo GERMAIN M.D. have personally reviewed and interpretedthis examination/study. This report was electronically signed by Rodolfo GERMAIN M.D. on 03/20/2020 11:47 AM . Galindo Reyes MD CT ORDERABLES * (ABNORMAL) GLUCOSE - POINT OF CARE (03/19/2020 12:22 PM CDT) Glucose WB/POC 256(H) 70 - 115 mg/dL 03/19/2020 12:24 PM CDT [facility] Specimen Type Venous 03/19/2020 12:24 PM T [facility] Blood BLOOD SPECIMEN / Unknown 03/19/2020 12:22 PM CDT 03/19/2020 12:24 PM CDT Jay Stewart MD LAB - POINT OF CARE ORDERABLES [address] [address], [place] [phone] * (ABNORMAL) GLUCOSE - POINT OF CARE (03/19/2020 8:27 AM CDT) Glucose WB/POC 322(H) 70 - 115 mg/dL 03/19/2020 8:50 AM CDT [facility] Specimen Type Venous 03/19/2020 8:50 AM CDT [facility] Blood BLOOD SPECIMEN / Unknown 03/19/2020 8:27 AM CDT 03/19/2020 8:50 AM CDT Jay Stewart MD LAB - POINT OF CARE ORDERABLES [address] [address], [place] [phone] * PHOSPHORUS BLOOD (03/19/2020 6:10 AM CDT) Phosphorus 3.9 2.3 - 4.7 mg/dL 03/19/2020 6:46 AM CDT [facility] Blood BLOOD SPECIMEN / Unknown Lab Venipuncture / Unknown 03/19/2020 6:10 AM CDT 03/19/2020 6:18 AM CDT Galindo Reyes MD LAB - CHEMISTRY O RDERABLES [address] [address], [place] [phone] * MAGNESIUM BLOOD (03/19/2020 6:10 AM CDT) Magnesium 1.9 1.6 - 2.6 mg/dL 03/19/2020 6:46 AM CDT [facility] Blood BLOOD SPECIMEN / Unknown Lab Venipuncture / Unknown 03/19/2020 6:10 AM CDT 03/19/2020 6:18 AM CDT Keena Cook MD LAB - CHEMISTRY ARMAND MORA [facility] [employer] [address] [place] [address], [facility] [phone] * (ABNORMAL) CBC W/O DIFFERENTIAL (03/19/2020 6:10 AM CDT) WBC 7.7 3.5 - 10.5 10? 3 /uL 03/19/2020 6:48 AM CDT [facility] [employer] [facility] RBC 4.06(L) 4.30 - 5.70 10? 6 /uL 03/19/2020 6:48 AM CDT [facility] Hemoglobin 11.9(L) 13.5 - 17.5 g/dL 03/19/2020 6:48 AM T [facility] Hematocrit 35.6(L) 39.0 - 50.0 % 03/19/2020 6:48 AM CDT [facility] MCV 87.7 81.0 - 97.0 fL 03/19/2020 6:48 AM CDT [facility] MCH 29.3 28.0 - 34.0 pg 03/19/2020 6:48 AM CDT [facility] MCHC 33.4 32.0 - 36.0 g/dL 03/19/2020 6:48 AM CDT [facility] Platelet Count 177 150 - 400 10? 3 /uL 03/19/2020 6:48 AM CDT [facility] RDW-SD 44.9 36.0 - 50.0 fL 03/19/2020 6:48 AM T [facility] RDW-CV 13.9 11.2 - 14.8 % 03/19/2020 6:48 AM CDT [facility] MPV 11.9 9.3 - 12.8 fL 03/19/2020 6:48 AM CDT [facility] nRBC Absolute 0.00 0 10? 3 /uL 03/19/2020 6:48 AM CDT [facility] nRBC Auto 0.0 0 /100 WBC 03/19/2020 6:48 AM [facility] Blood BLOOD SPECIMEN / Unknown Lab Venipuncture / Unknown 03/19/2020 6:10 AM CDT 03/19/2020 6:18 AM CDT Keena Cook MD LAB - HEMATOLOGY ORD ERABLES [facility] [address] [place] [address], [facility] [phone] * (ABNORMAL) BASIC METABOLIC PANEL (CALCIUM TOTAL) (03/19/2020 6:10 AM CDT) BUN 29(H) 7 - 26 mg/dL 03/19/2020 6:46 AM [facility] Creatinine 1.1 0.6 - 1.2 mg/dL 03/19/2020 6:46 AM [facility] Sodium 131(L) 136 - 145 mmol/L 03/19/2020 6:46 AM [facility] Potassium 4.5 3.5 - 4.5 mmol/L 03/19/2020 6:46 AM [facility] Chloride 97(L) 98 - 107 mmol/L 03/19/2020 6:46 AM [facility] CO2 27 22 - 29 mmol/L 03/19/2020 6:46 AM [facility] Glucose 168(H) 70 - 115 mg/dL 03/19/2020 6:46 AM [facility] Calcium 9.5 8.4 - 10.2 mg/dL 03/19/2020 6:46 AM [facility] Anion Gap 12 8 - 18 03/19/2020 6:46 AM [facility] BUN/Creatinine Ratio 26(H) 7 - 23 03/19/2020 6:46 AM [facility] Osmolality Calculated 282 270 - 300 mOsm/kg 03/19/2020 6:46 AM [facility] eGFR >60 >60 mL/min/1.7 3 m2 03/19/2020 6:46 AM [facility] Blood BLOOD SPECIMEN / Unknown Lab Venipuncture / Unknown 03/19/2020 6:10 AM CDT 03/19/2020 6:18 AM CDT Keena Cook MD LAB - CHEMISTRY ARMAND MORA [address] [address], [place] [phone] * (ABNORMAL) GLUCOSE - POINT OF CARE (03/18/2020 8:03 PM CDT) Glucose WB/POC 256(H) 70 - 115 mg/dL 03/18/2020 8:08 PM CDT [facility] Specimen Type Arterial/C apillary 03/18/2020 8:08 PM CDT [facility] Blood BLOOD SPECIMEN / Unknown 03/18/2020 8:03 PM CDT 03/18/2020 8:08 PM CDT Jay Stewart MD LAB - POINT OF CARE ORDERABLES Performing Organization Address City/[facility]/ZIP Co de Phone Number [address] [address], [place] [phone] * (ABNORMAL) GLUCOSE - POINT OF CARE (03/18/2020 7:14 PM CDT) Glucose WB/POC 159(H) 70 - 115 mg/dL 03/18/2020 7:19 PM CDT [facility] Specimen Type Arterial/C apillary 03/18/2020 7:19 PM CDT [facility] Blood BLOOD SPECIMEN / Unknown 03/18/2020 7:14 PM CDT 03/18/2020 7:19 PM CDT Jay Stewart MD LAB - POINT OF CARE ORDERABLES [address] [address], [place] [phone] * (ABNORMAL) GLUCOSE - POINT OF CARE (03/18/2020 4:08 PM CDT) Glucose WB/POC 175(H) 70 - 115 mg/dL 03/18/2020 4:13 PM CDT [facility] Specimen Type Arterial/C apillary 03/18/2020 4:13 PM CDT [facility] Blood BLOOD SPECIMEN / Unknown 03/18/2020 4:08 PM CDT 03/18/2020 4:13 PM CDT Jay Stewart MD LAB - POINT OF CARE ORDERABLES [facility] [address] [place] [address], [facility] [phone] * CCL CARDIAC CATH LEFT (03/18/2020 2:56 PM CDT) Anatomical Region Laterality Modality Chest X-Ray Angiograph y Narrative 03/20/2020 11:19 PM CDT [facility] Cardiac Catheterization Procedure Note Patient: Padmini Amador Age: [age] year old Date of : 1940 Date of Admission: 06/16/2019 Procedure Date: 03/18/20 FELLOW / DELICATESSEN SLICER: Anup Steele M.D ATTENDING PHYSICIAN: Dr. Oliver [...] evaluation, please review the [facility]. For details on monitored clinical parameters during the intra-service sedation time, please review the procedure nurse documentation in [facility]. Total sedation administered as follows: ??50 mcg [...] diffuse Moderate 30-40% disease. Apical LAD has PICK PACK WORKER. ??iii. ?? LCx: Dominant vessel. Proximal and [...] ?? Proceed with PCI of LCx/OM2 Anup Ann Muskula, MD 03/19/2020 APPROPRIATENESS CRITERIA FOR PCI: iNDICATION [...] DURING PCI: Heparin 7. INTERVENTIONAL WIRE: A Samurai wire was advanced beyond the lesion into the distal ??vessel. 8. PROCEDURE DETAILS:Balloon angioplasty was performed using a 2.0 x 12 mm NC Emerge MR balloon @ 16 DIXIE/16 Seconds and @10 atms/10 seconds. After angioplasty, [...] Drug Eluting Stent was deployed @ 18 dixie/14 seconds. 9. After intervention, the 90% stenosis [...] Oliver Biggs MD Oliver Biggs MD CARDIAC DIGITAL COMMUNITY MANAGER RA DIANT * (ABNORMAL) GLUCOSE - POINT OF CARE (03/18/2020 11:57 AM CDT) Glucose WB/POC 156(H) 70 - 115 mg/dL 03/18/2020 12:06 PM T [facility] Specimen Type Venous 03/18/2020 12:06 PM [facility] Blood BLOOD SPECIMEN / Unknown 03/18/2020 11:57 AM CDT 03/18/2020 12:06 PM CDT Jay Stewart MD LAB - POINT OF CARE ORDERABLES Performing Organization Address City/[facility]/ZIP Co de Phone Number [address] [address], [place] [phone] * (ABNORMAL) GLUCOSE - POINT OF CARE (03/18/2020 8:42 AM CDT) Glucose WB/POC 203(H) 70 - 115 mg/dL 03/18/2020 8:47 AM CDT [facility] Specimen Type Arterial/C apillary 03/18/2020 8:47 AM CDT [facility] Blood BLOOD SPECIMEN / Unknown 03/18/2020 8:42 AM CDT 03/18/2020 8:47 AM CDT Jay Stewart MD LAB - POINT OF CARE ORDERABLES Performing Organization Address City/[facility]/ZIP Co de Phone Number [address] [address], [place] [phone] * PHOSPHORUS BLOOD (03/18/2020 7:00 AM CDT) Phosphorus 3.4 2.3 - 4.7 mg/dL 03/18/2020 7:49 AM CDT [facility] Blood BLOOD SPECIMEN / Unknown Lab Venipuncture / Unknown 03/18/2020 7:00 AM CDT 03/18/2020 7:22 AM CDT Galindo Reyes MD LAB - CHEMISTRY O RDERABLES Performing Organization Address City/[facility]/ZIP Co de Phone Number [address] [address], [place] [phone] * MAGNESIUM BLOOD (03/18/2020 7:00 AM CDT) Magnesium 2.0 1.6 - 2.6 mg/dL 03/18/2020 7:49 AM CDT [facility] Blood BLOOD SPECIMEN / Unknown Lab Venipuncture / Unknown 03/18/2020 7:00 AM CDT 03/18/2020 7:22 AM CDT Keena Cook MD LAB - CHEMISTRY ARMAND MORA [facility] [address] [address], [facility] [phone] * (ABNORMAL) CBC W/O DIFFERENTIAL (03/18/2020 7:00 AM CDT) WBC 7.4 3.5 - 10.5 10? 3 /uL 03/18/2020 7:40 AM [facility] RBC 4.57 4.30 - 5.70 10? 6 /uL 03/18/2020 7:40 AM [facility] Hemoglobin 13.3(L) 13.5 - 17.5 g/dL 03/18/2020 7:40 AM [facility] Hematocrit 40.8 39.0 - 50.0 % 03/18/2020 7:40 AM [facility] MCV 89.3 81.0 - 97.0 fL 03/18/2020 7:40 AM [facility] MCH 29.1 28.0 - 34.0 pg 03/18/2020 7:40 AM [facility] MCHC 32.6 32.0 - 36.0 g/dL 03/18/2020 7:40 AM [facility] Platelet Count 195 150 - 400 10? 3 /uL 03/18/2020 7:40 AM [facility] RDW-SD 44.7 36.0 - 50.0 fL 03/18/2020 7:40 AM [facility] RDW-CV 13.7 11.2 - 14.8 % 03/18/2020 7:40 AM [facility] MPV 11.8 9.3 - 12.8 fL 03/18/2020 7:40 AM [facility] nRBC Absolute 0.00 0 10? 3 /uL 03/18/2020 7:40 AM [facility] nRBC Auto 0.0 0 /100 WBC 03/18/2020 7:40 AM [facility] Blood BLOOD SPECIMEN / Unknown Lab Venipuncture / Unknown 03/18/2020 7:00 AM CDT 03/18/2020 7:22 AM CDT Keena Cook MD LAB - HEMATOLOGY [place] [facility] [employer] [facility] [address] [place] [address], [facility] [phone] * (ABNORMAL) BASIC METABOLIC PANEL (CALCIUM TOTAL) (03/18/2020 7:00 AM CDT) BUN 31(H) 7 - 26 mg/dL 03/18/2020 7:49 AM [facility] Creatinine 1.1 0.6 - 1.2 mg/dL 03/18/2020 7:49 AM [facility] Sodium 134(L) 136 - 145 mmol/L 03/18/2020 7:49 AM [facility] Potassium 4.9(H) 3.5 - 4.5 mmol/L 03/18/2020 7:49 AM [facility] Chloride 98 98 - 107 mmol/L 03/18/2020 7:49 AM [facility] CO2 26 22 - 29 mmol/L 03/18/2020 7:49 AM [facility] Glucose 185(H) 70 - 115 mg/dL 03/18/2020 7:49 AM [facility] Calcium 9.6 8.4 - 10.2 mg/dL 03/18/2020 7:49 AM [facility] Anion Gap 15 8 - 18 03/18/2020 7:49 AM [facility] BUN/Creatinine Ratio 28(H) 7 - 23 03/18/2020 7:49 AM [facility] Osmolality Calculated 289 270 - 300 mOsm/kg 03/18/2020 7:49 AM [facility] eGFR >60 >60 mL/min/1.7 3 m2 03/18/2020 7:49 AM [facility] Blood BLOOD SPECIMEN / Unknown Lab Venipuncture / Unknown 03/18/2020 7:00 AM CDT 03/18/2020 7:22 AM CDT Keena Cook MD LAB - CHEMISTRY ARMAND MORA Performing Organization Address City/[facility]/ZIP Co de Phone Number [address] [address], [place] [phone] * (ABNORMAL) GLUCOSE - POINT OF CARE (03/17/2020 8:02 PM CDT) Glucose WB/POC 343(H) 70 - 115 mg/dL 03/17/2020 8:03 PM CDT [facility] Specimen Type Arterial/C apillary 03/17/2020 8:03 PM CDT [facility] Blood BLOOD SPECIMEN / Unknown 03/17/2020 8:02 PM CDT 03/17/2020 8:03 PM CDT Jay Stewart MD LAB - POINT OF CARE ORDERABLES Performing Organization Address [facility]/ZIP Co de Phone Number [address] [address], [place] [phone] * (ABNORMAL) GLUCOSE - POINT OF CARE (03/17/2020 5:11 PM CDT) Glucose WB/POC 211(H) 70 - 115 mg/dL 03/17/2020 5:20 PM CDT [facility] Specimen Type Venous 03/17/2020 5:20 PM CDT [facility] Blood BLOOD SPECIMEN / Unknown 03/17/2020 5:11 PM CDT 03/17/2020 5:20 PM CDT Jay Stewart MD LAB - POINT OF CARE ORDERABLES [address] [address], [place] [phone] * (ABNORMAL) GLUCOSE - POINT OF CARE (03/17/2020 12:04 PM CDT) Glucose WB/POC 177(H) 70 - 115 mg/dL 03/17/2020 12:13 PM CDT [facility] Specimen Type Venous 03/17/2020 12:13 PM CDT [facility] Blood BLOOD SPECIMEN / Unknown 03/17/2020 12:04 PM CDT 03/17/2020 12:13 PM CDT Jay Stewart MD LAB - POINT OF CARE ORDERABLES [facility] [address] [place] [address], [facility] [phone] * ECHO COMPLETE (03/17/2020 10:36 AM CDT) Anatomical Region Laterality Modality Chest Echo 03/17/2020 9:34 AM CDT Narrative Procedure Note Feliciano Viveros MD - 04/24/2020 Keena Cook MD ECHOCARDIOGRAPHY RAD IANT * VAS BILATERAL VENOUS MAPPING (03/17/2020 9:12 AM CDT) Anatomical Region Laterality Modality Upper Extremity, Lower Extremity Intravascular Ultrasound 03/17/2020 8:25 AM CDT Narrative Procedure Note Brigitte Schmitz MD - 03/18/2020 Galindo Reyes MD VASCULAR LAB ORDAdelfo MORA * VAS CAROTID DUPLEX BILATERAL (03/17/2020 9:12 AM CDT) Anatomical Region Laterality Modality Neck Intravascular Ul trasound 03/17/2020 8:07 AM CDT Narrative Procedure Note Brigitte Schmitz MD - 03/18/2020 Galindo Reyes MD VASCULAR LAB ORDAdelfo MORA * PHOSPHORUS BLOOD (03/17/2020 6:18 AM CDT) Phosphorus 3.2 2.3 - 4.7 mg/dL 03/17/2020 7:27 AM CDT [facility] Blood BLOOD SPECIMEN / Unknown Lab Venipuncture / Unknown 03/17/2020 6:18 AM CDT 03/17/2020 7:01 AM CDT Galindo Reyes MD LAB - CHEMISTRY O MABLE Performing Organization Address City/[facility]/ZIP Co de Phone Number [address] [address], [facility] [phone] * MAGNESIUM BLOOD (03/17/2020 6:18 AM CDT) Magnesium 1.9 1.6 - 2.6 mg/dL 03/17/2020 7:27 AM [facility] Blood BLOOD SPECIMEN / Unknown Lab Venipuncture / Unknown 03/17/2020 6:18 AM CDT 03/17/2020 7:01 AM CDT Keena Cook MD LAB - CHEMISTRY ARMAND MORA Performing Organization Address [facility]/ZIP Co de Phone Number [address] [address], [facility] [phone] * (ABNORMAL) BASIC METABOLIC PANEL (CALCIUM TOTAL) (03/17/2020 6:18 AM CDT) BUN 30(H) 7 - 26 mg/dL 03/17/2020 7:27 AM [facility] Creatinine 1.0 0.6 - 1.2 mg/dL 03/17/2020 7:27 AM [facility] Sodium 134(L) 136 - 145 mmol/L 03/17/2020 7:27 AM [facility] Potassium 4.6(H) 3.5 - 4.5 mmol/L 03/17/2020 7:27 AM [facility] Chloride 98 98 - 107 mmol/L 03/17/2020 7:27 AM [facility] CO2 28 22 - 29 mmol/L 03/17/2020 7:27 AM [facility] Glucose 173(H) 70 - 115 mg/dL 03/17/2020 7:27 AM [facility] Calcium 9.6 8.4 - 10.2 mg/dL 03/17/2020 7:27 AM [facility] Anion Gap 13 8 - 18 03/17/2020 7:27 AM [facility] BUN/Creatinine Ratio 30(H) 7 - 23 03/17/2020 7:27 AM [facility] Osmolality Calculated 288 270 - 300 mOsm/kg 03/17/2020 7:27 AM [facility] eGFR >60 >60 mL/min/1.7 3 m2 03/17/2020 7:27 AM [facility] Blood BLOOD SPECIMEN / Unknown Lab Venipuncture / Unknown 03/17/2020 6:18 AM CDT 03/17/2020 7:01 AM CDT Keena Cook MD LAB - CHEMISTRY [facility] [address] [address], [facility] [phone] * (ABNORMAL) CBC W/O DIFFERENTIAL (03/17/2020 6:15 AM CDT) WBC 6.8 3.5 - 10.5 10? 3 /uL 03/17/2020 7:25 AM [facility] RBC 4.19(L) 4.30 - 5.70 10? 6 /uL 03/17/2020 7:25 AM [facility] Hemoglobin 12.5(L) 13.5 - 17.5 g/dL 03/17/2020 7:25 AM [facility] Hematocrit 37.4(L) 39.0 - 50.0 % 03/17/2020 7:25 AM [facility] MCV 89.3 81.0 - 97.0 fL 03/17/2020 7:25 AM [facility] MCH 29.8 28.0 - 34.0 pg 03/17/2020 7:25 AM [facility] MCHC 33.4 32.0 - 36.0 g/dL 03/17/2020 7:25 AM [facility] Platelet Count 194 150 - 400 10? 3 /uL 03/17/2020 7:25 AM [facility] RDW-SD 44.9 36.0 - 50.0 fL 03/17/2020 7:25 AM [facility] RDW-CV 13.6 11.2 - 14.8 % 03/17/2020 7:25 AM CDT [facility] MPV 12.2 9.3 - 12.8 fL 03/17/2020 7:25 AM CDT [facility] nRBC Absolute 0.00 0 10? 3 /uL 03/17/2020 7:25 AM CDT [facility] nRBC Auto 0.0 0 /100 WBC 03/17/2020 7:25 AM CDT [facility] Blood BLOOD SPECIMEN / Unknown Lab Venipuncture / Unknown 03/17/2020 6:15 AM CDT 03/17/2020 7:01 AM CDT Keena Cook MD LAB - HEMATOLOGY ORD ERABLES [address] [address], [place] [phone] * (ABNORMAL) GLUCOSE - POINT OF CARE (03/16/2020 9:23 PM CDT) Glucose WB/POC 195(H) 70 - 115 mg/dL 03/16/2020 9:27 PM CDT [facility] Specimen Type Arterial/C apillary 03/16/2020 9:27 PM CDT [facility] Blood BLOOD SPECIMEN / Unknown 03/16/2020 9:23 PM CDT 03/16/2020 9:27 PM CDT Jay Stewart MD LAB - POINT OF CARE ORDERABLES [facility] [address] [place] [address], [place] [phone] * (ABNORMAL) GLUCOSE - POINT OF CARE (03/16/2020 4:39 PM CDT) Glucose WB/POC 185(H) 70 - 115 mg/dL 03/16/2020 4:51 PM CDT [facility] Specimen Type Arterial/C apillary 03/16/2020 4:51 PM CDT [facility] Blood BLOOD SPECIMEN / Unknown 03/16/2020 4:39 PM CDT 03/16/2020 4:51 PM CDT Jay Stewart MD LAB - POINT OF CARE ORDERABLES [address] [address], [place] [phone] * (ABNORMAL) GLUCOSE - POINT OF CARE (03/16/2020 11:24 AM CDT) Glucose WB/POC 192(H) 70 - 115 mg/dL 03/16/2020 11:29 AM CDT [facility] Specimen Type Arterial/C apillary 03/16/2020 11:29 AM CDT [facility] Blood BLOOD SPECIMEN / Unknown 03/16/2020 11:24 AM CDT 03/16/2020 11:29 AM CDT Jay Stewart MD LAB - POINT OF CARE ORDERABLES Performing Organization Address [facility]/ZIP Co de Phone Number [address] [address], [place] [phone] * (ABNORMAL) TROPONIN I (03/16/2020 9:33 AM CDT) Troponin I 0.644(HH) <0.032 ng/mL 03/16/2020 10:16 AM CDT [facility] Comment:Critical value previ ously called. Blood BLOOD SPECIMEN / Unknown Lab Venipuncture / Unknown 03/16/2020 9:33 AM CDT 03/16/2020 9:40 AM CDT Lenka Ivory PA-C LAB - CHEMISTRY [facility] [address] [address], [place] [phone] * (ABNORMAL) GLUCOSE - POINT OF CARE (03/16/2020 8:40 AM CDT) Glucose WB/POC 234(H) 70 - 115 mg/dL 03/16/2020 8:41 AM CDT [facility] Specimen Type Arterial/C apillary 03/16/2020 8:41 AM CDT [facility] Blood BLOOD SPECIMEN / Unknown 03/16/2020 8:40 AM CDT 03/16/2020 8:41 AM CDT Jay Stewart MD LAB - POINT OF CARE ORDERABLES Performing Organization Address [facility]/ZIP Co de Phone Number [address] [address], [place] [phone] * (ABNORMAL) PTT [facility] (03/16/2020 5:30 AM CDT) APTT 89.0(H) 23.0 - 38.4 Seconds 03/16/2020 6:21 AM CDT [facility] Comment:Suggested therapeuti c range for full dose I.V. unfractionated heparin therapy for venous thromboembolism is 71 to 109 seconds. Blood BLOOD SPECIMEN / Unknown Lab Venipuncture / Unknown 03/16/2020 5:30 AM CDT 03/16/2020 5:41 AM CDT Jay Stewart MD LAB - COAGULATION OR DERABLES Performing Organization Address [facility] Co de Phone Number [address] [address], [place] [phone] * PHOSPHORUS BLOOD (03/16/2020 5:30 AM CDT) Phosphorus 3.5 2.3 - 4.7 mg/dL 03/16/2020 6:06 AM CDT [facility] Blood BLOOD SPECIMEN / Unknown Lab Venipuncture / Unknown 03/16/2020 5:30 AM CDT 03/16/2020 5:39 AM CDT Galindo Reyes MD LAB - CHEMISTRY O RDERABLES [address] [address], [place] [phone] * MAGNESIUM BLOOD (03/16/2020 5:30 AM CDT) Pathologist [facility] Magnesium 1.9 1.6 - 2.6 mg/dL 03/16/2020 6:06 AM [facility] Blood BLOOD SPECIMEN / Unknown Lab Venipuncture / Unknown 03/16/2020 5:30 AM CDT 03/16/2020 5:39 AM CDT Keena Cook MD LAB - CHEMISTRY [facility] Organization Address City/State/ZIP Co de Phone Number [facility] [address] [place] [address], [facility] [phone] * (ABNORMAL) CBC W/O DIFFERENTIAL (03/16/2020 5:30 AM CDT) [facility] WBC 7.9 3.5 - 10.5 10? 3 /uL 03/16/2020 5:57 AM [facility] RBC 4.07(L) 4.30 - 5.70 10? 6 /uL 03/16/2020 5:57 AM [facility] Hemoglobin 11.8(L) 13.5 - 17.5 g/dL 03/16/2020 5:57 AM [facility] Hematocrit 36.2(L) 39.0 - 50.0 % 03/16/2020 5:57 AM [facility] MCV 88.9 81.0 - 97.0 fL 03/16/2020 5:57 AM [facility] MCH 29.0 28.0 - 34.0 pg 03/16/2020 5:57 AM [facility] MCHC 32.6 32.0 - 36.0 g/dL 03/16/2020 5:57 AM [facility] Platelet Count 173 150 - 400 10? 3 /uL 03/16/2020 5:57 AM [facility] RDW-SD 45.0 36.0 - 50.0 fL 03/16/2020 5:57 AM [facility] RDW-CV 13.8 11.2 - 14.8 % 03/16/2020 5:57 AM [facility] MPV 11.8 9.3 - 12.8 fL 03/16/2020 5:57 AM [facility] nRBC Absolute 0.00 0 10? 3 /uL 03/16/2020 5:57 AM [facility] nRBC Auto 0.0 0 /100 WBC 03/16/2020 5:57 AM [facility] Blood BLOOD SPECIMEN / Unknown Lab Venipuncture / Unknown 03/16/2020 5:30 AM CDT 03/16/2020 5:40 AM CDT Keena Cook MD LAB - HEMATOLOGY ORD ERABLES [facility] [address] [place] [address], [facility] [phone] * (ABNORMAL) BASIC METABOLIC PANEL (CALCIUM TOTAL) (03/16/2020 5:30 AM CDT) BUN 30(H) 7 - 26 mg/dL 03/16/2020 6:06 AM [facility] Creatinine 1.1 0.6 - 1.2 mg/dL 03/16/2020 6:06 AM [facility] Sodium 135(L) 136 - 145 mmol/L 03/16/2020 6:06 AM [facility] Potassium 4.3 3.5 - 4.5 mmol/L 03/16/2020 6:06 AM [facility] Chloride 98 98 - 107 mmol/L 03/16/2020 6:06 AM [facility] CO2 27 22 - 29 mmol/L 03/16/2020 6:06 AM [facility] Glucose 154(H) 70 - 115 mg/dL 03/16/2020 6:06 AM [facility] Calcium 9.4 8.4 - 10.2 mg/dL 03/16/2020 6:06 AM [facility] Anion Gap 14 8 - 18 03/16/2020 6:06 AM [facility] BUN/Creatinine Ratio 27(H) 7 - 23 03/16/2020 6:06 AM [facility] Osmolality Calculated 289 270 - 300 mOsm/kg 03/16/2020 6:06 AM [facility] eGFR >60 >60 mL/min/1.7 3 m2 03/16/2020 6:06 AM [facility] Blood BLOOD SPECIMEN / Unknown Lab Venipuncture / Unknown 03/16/2020 5:30 AM CDT 03/16/2020 5:39 AM CDT Keena Cook MD LAB - CHEMISTRY [facility] Performing Organization Address City/[facility]/ZIP Co de Phone Number [facility] [address] [place] [address], [place] [phone] * (ABNORMAL) PTT [facility] (03/15/2020 11:56 PM CDT) APTT 76.8(H) 23.0 - 38.4 Seconds 03/16/2020 12:43 AM CDT [facility] Comment:Suggested therapeuti c range for full dose I.V. unfractionated heparin therapy for venous thromboembolism is 71 to 109 seconds. Blood BLOOD SPECIMEN / Unknown Lab Venipuncture / Unknown 03/15/2020 11:56 PM CDT 03/15/2020 6:14 PM CDT Jay Stewart MD LAB - COAGULATION OR DERABLES Performing Organization Address [facility]/ZIP Co de Phone Number [address] [address], [place] [phone] * (ABNORMAL) GLUCOSE - POINT OF CARE (03/15/2020 8:19 PM CDT) Glucose WB/POC 327(H) 70 - 115 mg/dL 03/15/2020 8:24 PM CDT [facility] Specimen Type Arterial/C apillary 03/15/2020 8:24 PM CDT [facility] Blood BLOOD SPECIMEN / Unknown 03/15/2020 8:19 PM CDT 03/15/2020 8:24 PM CDT Jay Stewart MD LAB - POINT OF CARE ORDERABLES Performing Organization Address City/[facility]/ZIP Co de Phone Number [address] [address], [place] [phone] * (ABNORMAL) GLUCOSE - POINT OF CARE (03/15/2020 5:58 PM CDT) Pathologist [facility] Glucose WB/POC 331(H) 70 - 115 mg/dL 03/15/2020 6:04 PM CDT [facility] Specimen Type Arterial/C apillary 03/15/2020 6:04 PM CDT [facility] Blood BLOOD SPECIMEN / Unknown 03/15/2020 5:58 PM CDT 03/15/2020 6:04 PM CDT Jay Stewart MD LAB - POINT OF CARE ORDERABLES [facility] [address] [place] [address], [place] [phone] * RETYPE PATIENT (03/15/2020 4:24 PM CDT) [facility] ABO 03/15/2020 6:01 PM CDT [facility] Rh Type 03/15/2020 6:01 PM CDT [facility] Typem 03/15/2020 6:01 PM CDT [facility] Interpretation 03/15/2020 6:01 PM CDT [facility] Blood BLOOD SPECIMEN / Unknown Venipuncture / Unknown 03/15/2020 4:24 PM CDT 03/15/2020 4:36 PM CDT Narrative [facility] - 03/15/2020 6:01 PM CDT Re-type confirmed per [facility] Blood Bank policies & procedures. Results documented in department. Provider Unknown LAB - BLOOD BANK ORD ERABLES [facility] [address] [place] [address], [place] [phone] * (ABNORMAL) PTT [facility] (03/15/2020 4:24 PM CDT) Pathologist [facility] APTT >200.0(HH ) 23.0 - 38.4 Seconds 03/15/2020 5:31 PM CDT [facility] Comment: Suggested therapeutic range for full dose I.V. unfractionated heparin therapy for venous thromboembolism is 71 to 109 seconds. Confirmed by repeat analysis. Blood BLOOD SPECIMEN / Unknown Venipuncture / Unknown 03/15/2020 4:24 PM CDT 03/15/2020 4:39 PM CDT Jay Stewart MD LAB - COAGULATION OR DERABLES [facility] [address] [place] [address], [place] [phone] * CULTURE URINE (03/15/2020 3:53 PM CDT) Culture Urine No growth (<100 CFU/mL) AMBER 03/17/2020 7:26 AM CDT [facility] Urine URINE SPECIMEN OBTAINED BY CLEAN CATCH PROCEDURE / Unknown Collection / Unknown 03/15/2020 3:53 PM CDT 03/15/2020 4:11 PM CDT Galindo Reyes MD LAB - MICROBIOLOG Y ORDERABLES [facility] [address] [place] [address], [facility] [phone] * (ABNORMAL) URINALYSIS REFLEX TO MICROSCOPIC NO CULTURE (03/15/2020 3:53 PM CDT) Color UA Yellow Straw, Yellow, Colorless 03/15/2020 4:27 PM CDT [facility] Clarity UA Clear Clear, Slt Cloudy 03/15/2020 4:27 PM CDT [facility] Specific Allen UA 1.011 1.005 - 1.030 03/15/2020 4:27 PM CDT [facility] pH UA 6.0 5.0 - 8.0 pH 03/15/2020 4:27 PM CDT [facility] Protein UA Negative Negative mg/dL 03/15/2020 4:27 PM CDT [facility] Glucose UA Negative Negative mg/dL 03/15/2020 4:27 PM CDT [facility] Ketone UA Negative Negative mg/dL 03/15/2020 4:27 PM CDT [facility] Bilirubin UA Negative Negative mg/dL 03/15/2020 4:27 PM CDT [facility] Blood UA Negative Negative 03/15/2020 4:27 PM CDT [facility] Nitrite UA Negative Negative 03/15/2020 4:27 PM CDT [facility] Leukocyte Esterase Negative Negative 03/15/2020 4:27 PM CDT [facility] Urobilinogen UA Negative Negative mg/dL 03/15/2020 4:27 PM CDT [facility] RBC UA 0-2 None Seen, 0-2, 3-5 /HPF 03/15/2020 4:27 PM CDT [facility] WBC UA 0-5 None Seen, 0-5 /HPF 03/15/2020 4:27 PM CDT [facility] Squamous Epithelial Cells UA None Seen None Seen, 0-2 /HPF 03/15/2020 4:27 PM CDT [facility] Mucus UA 1+ None, 1+ /LPF 03/15/2020 4:27 PM CDT [facility] Hyaline Casts UA 3-5(A) None Seen, 0-2 /LPF 03/15/2020 4:27 PM CDT [facility] Urine URINE SPECIMEN OBTAINED BY CLEAN CATCH PROCEDURE / Unknown Collection / Unknown 03/15/2020 3:53 PM CDT 03/15/2020 4:27 PM CDT Narrative [facility] - 03/15/2020 4:27 PM CDT Galindo Reyes MD LAB - URINALYSIS ORDERABLES [facility] [address] [place] [address], [facility] [phone] * TYPE + SCREEN PANEL (03/15/2020 3:10 PM CDT) Antibody Screen NEG 0 4:28 PM CDT [facility] ABO Rh A POS 03/15/2020 4:28 PM CDT [facility] Blood Bank BLOOD SPECIMEN / Unknown Venipuncture / Unknown 03/15/2020 3:10 PM CDT 03/15/2020 3:34 PM CDT Galindo Reyes MD LAB - BLOOD BANK ORDERABLES [facility] [address] [place] [address], [place] [phone] * (ABNORMAL) GLUCOSE - POINT OF CARE (03/15/2020 12:31 PM CDT) Pathologist [facility] Glucose WB/POC 185(H) 70 - 115 mg/dL 03/15/2020 12:36 PM CDT [facility] Specimen Type Arterial/C apillary 03/15/2020 12:36 PM CDT [facility] Blood BLOOD SPECIMEN / Unknown 03/15/2020 12:31 PM CDT 03/15/2020 12:36 PM CDT Jay Stewart MD LAB - POINT OF CARE ORDERABLES Performing Organization Address City/[facility]/ZIP Co de Phone Number [address] [address], [place] [phone] * (ABNORMAL) TROPONIN I (03/15/2020 10:21 AM CDT) [facility] Troponin I 0.985(HH) <0.032 ng/mL 03/15/2020 11:15 AM CDT [facility] Blood BLOOD SPECIMEN / Unknown Venipuncture / Unknown 03/15/2020 10:21 AM CDT 03/15/2020 10:31 AM CDT Galindo Reyes MD LAB - CHEMISTRY O RDERABLES Performing Organization Address City/[facility]/ZIP Co de Phone Number [address] [address], [place] [phone] * XR PANOREX (03/15/2020 9:33 AM CDT) Anatomical Region Laterality Modality Head Radiographic Melba ging 03/15/2020 11:5 1 AM CDT Impressions 03/16/2020 11:15 AM CDT FINDINGS/IMPRESSION: All teeth are missing. There are dental implants in the mandible. There is no periodontal disease or periapical abscess. The mandible and temporomandibular joints are intact. Dictated by Cody Espana MD (residential sales representative). IDr. BRIGITTEH have personally reviewed and interpreted this examination/study. [...] are intact. Dictated by Cody Espana MD (residential sales representative). I, Dr. BRIGITTE HAMILTON have personally reviewed and interpreted this examination/study. This report was electronically signed by BRIGITTE HAMILTON on 03/16/2020 11:15 AM . Keena Cook MD DIAGNOSTIC IMAGING O RDERABLES * (ABNORMAL) GLUCOSE - POINT OF CARE (03/15/2020 8:43 AM CDT) [facility] Glucose WB/POC 177(H) 70 - 115 mg/dL 03/15/2020 8:55 AM CDT [facility] Specimen Type Arterial/C apillary 03/15/2020 8:55 AM CDT [facility] Blood BLOOD SPECIMEN / Unknown 03/15/2020 8:43 AM CDT 03/15/2020 8:55 AM CDT Jay Stewart MD LAB - POINT OF CARE ORDERABLES [address] [address], [facility] [phone] * EKG 12-LEAD (03/15/2020 8:06 AM CDT) [facility] Ventricular Rate 72 BPM [facility] Atrial Rate 72 BPM [facility] P-R Interval 190 ms [facility] QRS Duration ms 108 ms [facility] Q-T Interval ms 444 ms [facility] QTC Calculation (Bezet) 486 ms [facility] Calculated P Gratz 50 degrees [facility] Calculated R Gratz -22 degrees [facility] Calculated T Gratz 140 degrees [facility] Interpretation EKG SINUS RHYTHM WITH FREQUENT PREMATURE VENTRICULAR COMPLEXES MINIMAL VOLTAGE CRITERIA FOR LVH, MAY BE NORMAL VARIANT ST & T WAVE ABNORMALITY, CONSIDER LATERAL ISCHEMIA PROLONGED QT ABNORMAL ECG WHEN COMPARED WITH ECG OF 15-MAR-2020 03:33, NO SIGNIFICANT CHANGE WAS FOUND Confirmed by Enrike Cronin ([id number]) on 05/30/2020 12:45:26 AM [facility] 03/15/2020 8:06 AM CDT 05/30/2020 12:45 AM [employer] Keena Cook MD ECG ORDERABLES Performing Organization Address City/[facility]/ZIP Co de Phone Number [facility] * (ABNORMAL) PTT [facility] (03/15/2020 6:30 AM CDT) APTT 52.8(H) 23.0 - 38.4 Seconds 03/15/2020 9:43 AM CDT [facility] Comment:Suggested therapeuti c range for full dose I.V. unfractionated heparin therapy for venous thromboembolism is 71 to 109 seconds. Blood BLOOD SPECIMEN / Unknown Lab Venipuncture / Unknown 03/15/2020 6:30 AM CDT 03/15/2020 6:56 AM CDT Narrative [facility] - 03/15/2020 9:43 AM CDT CKIN Jay Stewart MD LAB - COAGULATION OR DERABLES [facility] [address] [place] [address], [place] [phone] * TRANSFERRIN (03/15/2020 6:30 AM CDT) Transferrin 238 174 - 382 mg/dL 03/15/2020 7:49 AM CDT [facility] Transferrin Saturation % 30 16 - 50 % 03/15/2020 7:49 AM CDT [facility] Blood BLOOD SPECIMEN / Unknown Lab Venipuncture / Unknown 03/15/2020 6:30 AM CDT 03/15/2020 7:16 AM CDT Keena Cook MD LAB - CHEMISTRY [facility] Performing Organization Address City/[facility]/ZIP Co de Phone Number [address] [address], [place] [phone] * FERRITIN (03/15/2020 6:30 AM CDT) Ferritin 225 22 - 275 ng/mL 03/15/2020 8:07 AM CDT [facility] Blood BLOOD SPECIMEN / Unknown Lab Venipuncture / Unknown 03/15/2020 6:30 AM CDT 03/15/2020 7:16 AM CDT Keena Cook MD LAB - CHEMISTRY [facility] Performing Organization Address City/[facility]/ZIP Co de Phone Number [address] [address], [place] [phone] * IRON BLOOD (03/15/2020 6:30 AM CDT) Iron 90 50 - 175 mcg/dL 03/15/2020 7:49 AM CDT [facility] Blood BLOOD SPECIMEN / Unknown Lab Venipuncture / Unknown 03/15/2020 6:30 AM CDT 03/15/2020 7:16 AM CDT Keena Cook MD LAB - CHEMISTRY [facility] [address] [address], [place] [phone] * (ABNORMAL) HEMOGLOBIN A1C (03/15/2020 6:30 AM CDT) Hemoglobin A1c 6.5(H) 4.4 - 6.3 % 03/15/2020 1:19 PM CDT [facility] Estimated Average Glucose 140 mg/dL 03/15/2020 1:19 PM CDT [facility] Comment: HbA1c Interpretation: Treatment target values recommended by ADA and other clinical organizations should be used to evaluate metabolic control in patients. Treatment Target Values: Normal : < 5.7% Pre-diabetes: 5.7-6.4% Diabetes: Equal to or greater than 6.5% Reference: [place] [employer] Association Standards of Care in Diabetes -2014 In patients 70 years and older consider HbA1c target range of 7.0-7.5% Reference: ??Diabetes Mellitus in Older People: Position Statement on behalf of the International Association of Gerontology and Geriatrics (IAGG), the Diabetes Working Alliance Party for Older People (EDWPOP), and the International Task Force of Experts in Diabetes. ??Nathan Quiñones, et al. J [employer]. 2012 Test results diagnostic of diabetes should be repeated for confirmation. The Sebia Capillary 2 assay for the measurement of HbA1c is a National Glycohemoglobin Standardization Program (NGSP)certified method. Blood BLOOD SPECIMEN / Unknown Lab Venipuncture / Unknown 03/15/2020 6:30 AM CDT 03/15/2020 6:50 AM CDT Keena Cook MD LAB - CHEMISTRY [facility] Organization Address City/State/ZIP Co de Phone Number [facility] [address] [place] [address], [facility] [phone] * (ABNORMAL) LIPID PROFILE (03/15/2020 6:30 AM CDT) [facility] Signature Cholesterol Total 115 <200 mg/dL 03/15/2020 7:37 AM CDT [facility] HDL 35(L) >40 mg/dL 03/15/2020 7:37 AM [facility] Comment: ATP III Classification of HDL Cholesterol: ? <40 mg/dL: ??Considered a major risk factor. ? >60 mg/dL: ??Considered a negative risk factor. ? LDL Calculated 65 <100 mg/dL 03/15/2020 7:37 AM T [facility] Comment: ATP III Classification of LDL Cholesterol: ?<100 mg/dL: ??Optimal ? 100 - 129 mg/dL: ??Near Optimal/Above Optimal ? 130 - 159 mg/dL: ??Borderline High ? 160 - 189 mg/dL: ??High ?>190 mg/dL: ??Very High ? Triglycerides 75 <150 mg/dL 03/15/2020 7:37 AM CDT [facility] Comment: ATP III Classification of Triglycerides: ?<150 mg/dL: ??Normal ? 150 - 199 mg/dL: ??Borderline High ? 200 - 400 mg/dL: ??High ?>500 mg/dL: ??Very High Blood BLOOD SPECIMEN / Unknown Lab Venipuncture / Unknown 03/15/2020 6:30 AM CDT 03/15/2020 6:52 AM CDT Keena Cook MD LAB - CHEMISTRY [facility] Performing Organization Address City/[facility]/ZIP Co de Phone Number [address] [address], [facility] [phone] * MAGNESIUM BLOOD (03/15/2020 6:30 AM CDT) Magnesium 2.0 1.6 - 2.6 mg/dL 03/15/2020 7:37 AM CDT [facility] Blood BLOOD SPECIMEN / Unknown Lab Venipuncture / Unknown 03/15/2020 6:30 AM CDT 03/15/2020 6:52 AM CDT Keena Cook MD LAB - CHEMISTRY [facility] M[facility]A Performing Organization Address City/[facility]/ZIP Co de Phone Number [facility] [address] [place] [address], [facility] [phone] * (ABNORMAL) CBC W/O DIFFERENTIAL (03/15/2020 6:30 AM CDT) WBC 7.5 3.5 - 10.5 10? 3 /uL 03/15/2020 7:09 AM [facility] RBC 4.33 4.30 - 5.70 10? 6 /uL 03/15/2020 7:09 AM [facility] Hemoglobin 12.5(L) 13.5 - 17.5 g/dL 03/15/2020 7:09 AM [facility] Hematocrit 37.4(L) 39.0 - 50.0 % 03/15/2020 7:09 AM [facility] MCV 86.4 81.0 - 97.0 fL 03/15/2020 7:09 AM [facility] MCH 28.9 28.0 - 34.0 pg 03/15/2020 7:09 AM [facility] MCHC 33.4 32.0 - 36.0 g/dL 03/15/2020 7:09 AM [facility] Platelet Count 171 150 - 400 10? 3 /uL 03/15/2020 7:09 AM [facility] RDW-SD 43.7 36.0 - 50.0 fL 03/15/2020 7:09 AM [facility] RDW-CV 13.9 11.2 - 14.8 % 03/15/2020 7:09 AM [facility] MPV 11.9 9.3 - 12.8 fL 03/15/2020 7:09 AM [facility] nRBC Absolute 0.00 0 10? 3 /uL 03/15/2020 7:09 AM [facility] nRBC Auto 0.0 0 /100 WBC 03/15/2020 7:09 AM [facility] Blood BLOOD SPECIMEN / Unknown Lab Venipuncture / Unknown 03/15/2020 6:30 AM CDT 03/15/2020 6:52 AM CDT Keena Cook MD LAB - HEMATOLOGY ORD ERABLES [facility] [address] [place] [address], [facility] [phone] * (ABNORMAL) BASIC METABOLIC PANEL (CALCIUM TOTAL) (03/15/2020 6:30 AM CDT) BUN 25 7 - 26 mg/dL 03/15/2020 7:37 AM [facility] Creatinine 1.0 0.6 - 1.2 mg/dL 03/15/2020 7:37 AM [facility] Sodium 136 136 - 145 mmol/L 03/15/2020 7:37 AM [facility] Potassium 4.7(H) 3.5 - 4.5 mmol/L 03/15/2020 7:37 AM [facility] Chloride 99 98 - 107 mmol/L 03/15/2020 7:37 AM [facility] CO2 24 22 - 29 mmol/L 03/15/2020 7:37 AM [facility] Glucose 160(H) 70 - 115 mg/dL 03/15/2020 7:37 AM [facility] Calcium 9.0 8.4 - 10.2 mg/dL 03/15/2020 7:37 AM [facility] Anion Gap 18 8 - 18 03/15/2020 7:37 AM [facility] BUN/Creatinine Ratio 25(H) 7 - 23 03/15/2020 7:37 AM [facility] Osmolality Calculated 290 270 - 300 mOsm/kg 03/15/2020 7:37 AM [facility] eGFR >60 >60 mL/min/1.7 3 m2 03/15/2020 7:37 AM [facility] Blood BLOOD SPECIMEN / Unknown Lab Venipuncture / Unknown 03/15/2020 6:30 AM CDT 03/15/2020 6:52 AM [facility] Keena Cook MD LAB - CHEMISTRY ARMAND MORA [facility] [address] [place] [address], [facility] [phone] * EKG 12-LEAD (03/15/2020 3:33 AM CDT) Ventricular Rate 72 BPM [facility] MUSE Atrial Rate 72 BPM [facility] P-R Interval 202 ms [facility] QRS Duration ms 106 ms [facility] Q-T Interval ms 496 ms [facility] QTC Calculation (Bezet) 543 ms [facility]USE Calculated P Gratz 64 degrees [facility] Calculated R Gratz -23 degrees [facility] Calculated T Gratz 143 degrees [facility] Interpretation EKG SINUS RHYTHM WITH FREQUENT PREMATURE VENTRICULAR COMPLEXES AND FUSION COMPLEXES IN A PATTERN OF BIGEMINY MINIMAL VOLTAGE CRITERIA FOR LVH, MAY BE NORMAL VARIANT T WAVE ABNORMALITY, CONSIDER LATERAL ISCHEMIA PROLONGED QT ABNORMAL ECG NO PREVIOUS ECGS AVAILABLE Confirmed by Enrike Cronin ([id number]) on 05/30/2020 12:35:46 AM [facility] 03/15/2020 3:33 AM CDT 05/30/2020 12:35 AM [facility] Keena Cook MD ECG ORDERABLES [facility] * XR CHEST 1VW PORTABLE (03/14/2020 11:55 [...] is intact. Dictated by Scottie Madison MD (residential sales representative). I, Dr. BRIGITTE HAMILTON have personally reviewed [...] is intact. Dictated by Scottie Madison MD (residential sales representative). I, Dr. BRIGITTE HAMILTON have personally reviewed and interpreted this examination/study. This report was electronically signed by BRIGITTE HAMILTON on 03/16/2020 12:01 PM . Keena Cook MD DIAGNOSTIC IMAGING O RDERABLES * (ABNORMAL) TROPONIN I (03/14/2020 11:17 PM CDT) [facility] Troponin I 1.262(HH) <0.032 ng/mL 03/14/2020 11:59 PM CDT [facility] Comment:Critical value(s) wise ve been verified and called to and read back by Radha Preciado RN 1964 03/14/20 Blood BLOOD SPECIMEN / Unknown Venipuncture / Unknown 03/14/2020 11:17 PM CDT 03/14/2020 6:14 PM CDT Keena Cook MD LAB - CHEMISTRY ORDE RABLES [address] [address], [facility] [phone] * PTT [facility] (03/14/2020 11:17 PM CDT) [facility] APTT 35.3 23.0 - 38.4 Seconds 03/14/2020 11:51 PM CDT [facility] Comment:Suggested therapeuti c range for full dose I.V. unfractionated heparin therapy for venous thromboembolism is 71 to 109 seconds. Blood BLOOD SPECIMEN / Unknown Venipuncture / Unknown 03/14/2020 11:17 PM CDT 03/14/2020 6:14 PM CDT Keena Cook MD LAB - COAGULATION OR DERABLES [address] [address], [place] [phone] * PT-INR [facility] (03/14/2020 11:17 PM CDT) [facility] PT 14.0 12.1 - 14.8 Seconds 03/14/2020 11:51 PM [facility] INR 1.1 See Comment 03/14/2020 11:51 PM [facility] Comment:The suggested therap eutic range for standard coumadin (warfarin) therapy is an INR of 2.0-3.0. For high-risk patients (Mechanical Mitral Valve Prosthesis, etc.), the suggested prophylactic therapeutic range is an INR of 2.5-3.5. Blood BLOOD SPECIMEN / Unknown Venipuncture / Unknown 03/14/2020 11:17 PM CDT 03/14/2020 6:14 PM CDT Keena Cook MD LAB - COAGULATION OR DERABLES [facility] [address] [place] [address], [facility] [phone] * (ABNORMAL) CBC W AUTO DIFFERENTIAL (03/14/2020 11:17 PM CDT) Pathologist [facility] WBC 8.4 3.5 - 10.5 10? 3 /uL 03/14/2020 11:40 PM [facility] RBC 4.24(L) 4.30 - 5.70 10? 6 /uL 03/14/2020 11:40 PM [facility] Hemoglobin 12.5(L) 13.5 - 17.5 g/dL 03/14/2020 11:40 PM [facility] Hematocrit 37.8(L) 39.0 - 50.0 % 03/14/2020 11:40 PM [facility] MCV 89.2 81.0 - 97.0 fL 03/14/2020 11:40 PM [facility] MCH 29.5 28.0 - 34.0 pg 03/14/2020 11:40 PM [facility] MCHC 33.1 32.0 - 36.0 g/dL 03/14/2020 11:40 PM [facility] Platelet Count 184 150 - 400 10? 3 /uL 03/14/2020 11:40 PM [facility] RDW-SD 44.4 36.0 - 50.0 fL 03/14/2020 11:40 PM [facility] RDW-CV 13.6 11.2 - 14.8 % 03/14/2020 11:40 PM [facility] MPV 12.0 9.3 - 12.8 fL 03/14/2020 11:40 PM [facility] nRBC Absolute 0.00 0 10? 3 /uL 03/14/2020 11:40 PM [facility] nRBC Auto 0.0 0 /100 WBC 03/14/2020 11:40 PM [facility] Neutrophils % 66.4 35.0 - 70.0 % 03/14/2020 11:40 PM [facility] Lymphocytes % 18.0(L) 19.7 - 55.1 % 03/14/2020 11:40 PM [facility] Monocytes % 12.2 3.0 - 15.0 % 03/14/2020 11:40 PM [facility] Eosinophils % 2.5 0.0 - 6.0 % 03/14/2020 11:40 PM [facility] Basophil % 0.7 0.0 - 1.5 % 03/14/2020 11:40 PM [facility] Neutrophils Absolute 5.6 1.6 - 7.0 10? 3 /uL 03/14/2020 11:40 PM [facility] Lymphocyte Absolute 1.5 0.8 - 2.9 10? 3 /uL 03/14/2020 11:40 PM [facility] Monocytes Absolute 1.03(H) 0.14 - 0.66 10? 3 /uL 03/14/2020 11:40 PM [facility] Eosinophils Absolute 0.21 0.00 - 0.45 10? 3 /uL 03/14/2020 11:40 PM [facility] Basophils Absolute 0.06 0.00 - 0.06 10? 3 /uL 03/14/2020 11:40 PM [facility] Immature Granulocytes % 0.2 0.0 - 1.0 % 03/14/2020 11:40 PM [facility] Blood BLOOD SPECIMEN / Unknown Venipuncture / Unknown 03/14/2020 11:17 PM CDT 03/14/2020 6:14 PM CDT Keena Cook MD LAB - HEMATOLOGY ORD ERAPAUL [address] [address], [place] [phone] * PHOSPHORUS BLOOD (03/14/2020 11:16 PM CDT) Phosphorus 2.9 2.3 - 4.7 mg/dL 03/14/2020 11:49 PM CDT [facility] Blood BLOOD SPECIMEN / Unknown Venipuncture / Unknown 03/14/2020 11:16 PM CDT 03/14/2020 6:14 PM CDT Keena Cook MD LAB - CHEMISTRY ARMAND MORA Performing Organization Address City/[facility]/ZIP Co de Phone Number [address] [address], [place] [phone] * MAGNESIUM BLOOD (03/14/2020 11:16 PM CDT) Magnesium 2.1 1.6 - 2.6 mg/dL 03/14/2020 11:49 PM CDT [facility] Blood BLOOD SPECIMEN / Unknown Venipuncture / Unknown 03/14/2020 11:16 PM CDT 03/14/2020 6:14 PM CDT Keena Cook MD LAB - CHEMISTRY ARMAND MORA [address] [address], [place] [phone] * LACTIC ACID BLOOD (03/14/2020 11:16 PM CDT) Lactic Acid-Stat 1.1 0.5 - 2.2 mmol/L 03/14/2020 11:42 PM CDT [facility] Blood BLOOD SPECIMEN / Unknown Venipuncture / Unknown 03/14/2020 11:16 PM CDT 03/14/2020 6:14 PM CDT Keena Cook MD LAB - CHEMISTRY ARMAND MORA [facility] [address] [id number], [facility] [phone] * (ABNORMAL) B-TYPE NATRIURETIC PEPTIDE (03/14/2020 11:16 PM CDT) BNP 1,065(H) See Comment pg/mL 03/14/2020 11:55 PM CDT [facility] Comment: A decision threshold of 100 [...] - CHEMISTRY ARMAND MORA Performing Organization Address [facility]/ZIP Co de Phone Number [facility] [address] [place] [address], [facility] [phone] * (ABNORMAL) COMPREHENSIVE METABOLIC PANEL (03/14/2020 11:16 PM CDT) BUN 32(H) 7 - 26 mg/dL 03/14/2020 11:49 PM [facility] Creatinine 1.1 0.6 - 1.2 mg/dL 03/14/2020 11:49 PM [facility] Sodium 134(L) 136 - 145 mmol/L 03/14/2020 11:49 PM [facility] Potassium 4.4 3.5 - 4.5 mmol/L 03/14/2020 11:49 PM [facility] Chloride 96(L) 98 - 107 mmol/L 03/14/2020 11:49 PM [facility] CO2 28 22 - 29 mmol/L 03/14/2020 11:49 PM [facility] Glucose 174(H) 70 - 115 mg/dL 03/14/2020 11:49 PM [facility] Calcium 9.7 8.4 - 10.2 mg/dL 03/14/2020 11:49 PM [facility] Protein Total 7.7 6.0 - 8.3 g/dL 03/14/2020 11:49 PM [facility] Albumin 3.7 3.4 - 5.0 g/dL 03/14/2020 11:49 PM [facility] Bilirubin Total 1.2 0.2 - 1.2 mg/dL 03/14/2020 11:49 PM [facility] Alkaline Phosphatase 69 40 - 150 Units/L 03/14/2020 11:49 PM [facility] ALT 17 0 - 55 Units/L 03/14/2020 11:49 PM CDT [facility] AST 22 5 - 34 Units/L 03/14/2020 11:49 PM T [facility] Anion Gap 14 8 - 18 03/14/2020 11:49 PM T [facility] BUN/Creatinine Ratio 29(H) 7 - 23 03/14/2020 11:49 PM T [facility] Osmolality Calculated 289 270 - 300 mOsm/kg 03/14/2020 11:49 PM [facility] Albumin/Globulin Ratio 0.9(L) 1.1 - 2.3 03/14/2020 11:49 PM T [facility] eGFR >60 >60 mL/min/1.7 3 m2 03/14/2020 11:49 PM [facility] Blood BLOOD SPECIMEN / Unknown Venipuncture / Unknown 03/14/2020 11:16 PM CDT 03/14/2020 6:14 PM CDT Keena Cook MD LAB - CHEMISTRY ARMAND MORA [facility] Organization Address City/State/ZIP Co de Phone Number [facility] [address] [place] [address], [facility] [phone] documented in this encounter Visit Diagnoses Diagnosis Congestive heart failure, unspecified HF chronicity, unspecified heart failure type (HCC)- Primary NSTEMI (non-ST elevated myocardial infarction) (HCC) Acute myocardial infarction, subendocardial infarction, episode of care unspecified Aortic valve stenosis, etiology of cardiac valve disease unspecified Combined systolic and diastolic congestive heart failure, unspecified HF chronicity (HCC) Congestive heart failure (HCC) Congestive heart failure, unspecified NSTEMI (non-ST elevated myocardial infarction) (HCC) Acute myocardial infarction, subendocardial infarction, episode of care unspecified Severe aortic stenosis Aortic valve disorders Moderate mitral insufficiency Mitral valve disorders Ischemic cardiomyopathy Other specified forms of chronic ischemic heart disease Essential hypertension Mixed hyperlipidemia Type 2 diabetes mellitus with diabetic nephropathy, 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 documented in this encounter Administered Medications Inactive Administered Medications - up to 3 most recent administrations Medication Order MAR Action Action Date Dose Rate Site 0.9% NaCl infusion Intravenous, CONTINUOUS PRN, Starting on Tue03/18/20 at 1207, Until Tue03/18/20 at 1207 $ New Bag/Syringe 03/18/2020 12:07 PM CDT 50 mL/hr 50 mL/hr 0.9% NaCl injection 1-10 mL 1-10 mL, Intracatheter, PRN, Other, peripheral line flush, Starting on Tue03/14/20 at 2259, Until Tue03/19/20 at 2054, Flush peripheral IV catheter with 1-10 mL of normal saline before and after medications and prn to clear blood from the line or to verify patency. 0.9% NaCl injection 3 mL 3 mL, Intracatheter, EVERY 8 HOURS, First dose on Tue03/14/20 at 2330, Until Discontinued, Flush peripheral IV catheter with 3 mL of normal saline every 8 hours. $ Given 03/19/2020 3:57 PM CDT 3 mL $ Given 03/19/2020 5:23 AM CDT 3 mL $ Given 03/18/2020 8:12 PM CDT 3 mL acetaminophen (TYLENOL) tablet 650 mg 650 mg, Oral, EVERY 6 HOURS, 20 doses, First dose on Tue03/19/20 at 0000, Last dose on Tue03/23/20 at 1800, Post-op $ Given 03/19/2020 6:14 PM CDT 650 mg $ Given 03/19/2020 5:23 AM CDT 650 mg $ Given 03/18/2020 11:13 PM CDT 650 mg aspirin chew tablet 81 mg 81 mg, Oral, DAILY, First dose on Tue03/15/20 at 0900, Until Discontinued $ Given 03/19/2020 8:43 AM CDT 81 mg $ Given 03/18/2020 9:00 AM CDT 81 mg $ Given 03/17/2020 11:34 AM CDT 81 mg atorvastatin (LIPITOR) tablet 80 mg 80 mg, Oral, AT BEDTIME, First dose on Tue03/15/20 at 2100, Until Discontinued $ Given 03/18/2020 8:12 PM CDT 80 mg $ Given 03/17/2020 9:18 PM CDT 80 mg $ Given 03/16/2020 9:23 PM CDT 80 mg clopidogrel (plaVIX) tablet 600 mg 600 mg, Oral, ONCE, 1 dose, On 03/17/20 at 1445 $ Given 03/17/2020 3:13 PM CDT 600 mg clopidogrel (plaVIX) tablet 75 mg 75 mg, Oral, DAILY, First dose on Tue03/18/20 at 0900, Until Discontinued $ Given 03/19/2020 8:43 AM CDT 75 mg $ Given 03/18/2020 9:07 AM CDT 75 mg clopidogrel (plaVIX) tablet Oral, ONCE PRN, Starting on Tue03/18/20 at 1442, Until Tue03/18/20 at 1442 $ Given 03/18/2020 2:42 PM CDT 225 mg dextrose IV 12.5-25 g 12.5-25 g (25-50 mL), Intravenous, PRN, Bedside Glucose less than 70 mg/dL -If NOT able to eat and/or NPO and with IV Access, Starting on Tue03/15/20 at 0240, Until Tue03/19/20 at 2054, If NOT able to eat and/or NPO [...] 80 mg/dl. NOTIFY PROVIDER OF HYPOGLYCEMIC EVENT. fentaNYL (PF) (SUBLIMAZE) injection Intravenous, ONCE PRN, Starting on Tue03/18/20 at 1252, Until Tue03/18/20 at 1252 $ Given 03/18/2020 12:52 PM CDT 50 mcg finasteride (PROSCAR) tablet 5 mg 5 mg, Oral, DAILY, First dose on Tue03/15/20 at 0900, Until Discontinued, Women who are or planning to become should not handle crushed or broken tablets $ Given 03/19/2020 8:42 AM CDT 5 mg $ Given 03/18/2020 9:01 AM CDT 5 mg $ Given 03/17/2020 11:33 AM CDT 5 mg furosemide (LASIX) injection 40 mg 40 mg, Intravenous, 2 TIMES DAILY, First dose on Tue03/15/20 at 0900, Until Discontinued $ Given 03/15/2020 9:00 PM CDT 40 mg $ Given 03/15/2020 9:54 AM CDT 40 mg furosemide (LASIX) tablet 20 mg 20 mg, Oral, DAILY, First dose on 03/16/20 at 1115, Until Discontinued $ Given 03/19/2020 8:42 AM CDT 20 mg $ Given 03/18/2020 9:01 AM CDT 20 mg $ Given 03/17/2020 11:34 AM CDT 20 mg furosemide (LASIX) tablet 40 mg 40 mg, Oral, ONCE, 1 dose, On 03/16/20 at 0730 $ Given 03/16/2020 8:36 AM CDT 40 mg glucagon (GLUCAGEN) injection 1 mg 1 mg, Intramuscular, PRN, Bedside Glucose less than 70 mg/dL - If NOT able to eat and/or NPO and withOUT IV Access, Starting on 03/15/20 at 0240, Until Tue03/19/20 at 2053, If NOT able to eat and/or NPO [...] does not have swallowing difficulties, Starting on 03/15/20 at 0240, Until Tue03/19/20 at 2053, If able to eat and does not [...] 80 mg/dl. NOTIFY PROVIDER OF HYPOGLYCEMIC EVENT. heparin 100 unit/mL in 0.45 % NaCl infusion 500-2,150 Units/hr (5-21.5 mL/hr), Intravenous, CONTINUOUS, Starting on Tue03/14/20 at 2345, Until 03/16/20 at 0909, Initial rate 1000 units/hr APTT(sec) RATE CHANGE less than 61: bolus + increase by 350 units/hr, 61-70.9: bolus + increase by 200 units/hr, 71-109: NO CHANGE (therapeutic range), 109.1-119: decrease by 100 units/hr, 119.1-137: decrease by 200 units/hr, greater than 137: Hold heparin for 1 hour and reduce rate by 300 units/hr Draw aPTT 6 hours after infusion is initiated. Repeat aPTT 6 hours after any rate change or 6 hours after heparin is restarted. After two consecutive aPTTs drawn 6 hours apart are therapeutic, order aPTT to be drawn the following a.m. and daily and adjust per nomogram. Notify physician if 2 consecutive aPTT's are greater than 140 If heparin is interrupted for any reason other than described in the table, notify the physician. If heparin is to be restarted after an interruption of more than 4 hours, give 4000 units IV bolus and resume infusion at same rate as before the interruption. Restarted 03/15/2020 6:50 PM CDT 1,050 Units/hr 10.5 mL/hr $ New Bag/Syringe 03/15/2020 3:28 PM CDT 1,350 Units/hr 13 .5 mL/hr $ New Bag/Syringe 03/15/2020 10:29 AM CDT 1,000 Units/hr 1 0 mL/hr heparin 100 units/mL bolus from bag 4,000-7,000 Units, Intravenous, BOLUS FROM BAG PRN, heparin bolus dose, Starting on Tue03/14/20 at 2300, Until Tue03/16/20 at 0909, APTT(sec) Bolus less than 61: 7000 unit bolus + rate Increase, 61-70.9: 4000 unit bolus + rate Increase, 71-109: NO CHANGE (therapeutic range), 109.1-119: No Bolus + rate Decrease, 119.1-137: No Bolus + rate Decrease. greater than 137: No Bolus + hold infusion and rate Decrease Draw aPTT 6 hours after infusion is initiated. Repeat aPTT 6 hours after any rate change or 6 hours after heparin is restarted. After two consecutive aPTTs drawn 6 hours apart are therapeutic, order aPTT to be drawn the following a.m. and daily and adjust per nomogram. Notify physician if 2 consecutive aPTT's are greater than 140 If heparin is interrupted for any reason other than described in the table, notify the physician. If heparin is to be restarted after an interruption of more than 4 hours, give 4000 units IV bolus and resume infusion at same rate as before the interruption. Bolus From Bag 03/15/2020 10:24 AM CDT 7,000 Units heparin injection 5,000 Units 5,000 Units, Subcutaneous, EVERY 8 HOURS, First dose on Tue03/16/20 at 1400, Until Discontinued $ Given 03/16/2020 9:23 PM CDT 5,000 Units Abdominal Tissue $ Given 03/16/2020 2:38 PM CDT 5,000 Units R ight Arm heparin injection 5,000 Units 5,000 Units, Subcutaneous, EVERY 8 HOURS, First dose on Tue03/18/20 at 2200, Until Discontinued $ Given 03/19/2020 3:56 PM CDT 5,000 Units Abd Left Lower Quadrant $ Given 03/19/2020 5:23 AM CDT 5,000 Units L eft Arm $ Given 03/18/2020 8:12 PM CDT 5,000 Units L eft Arm heparin injection Intravenous, ONCE PRN, Starting on Tue03/18/20 at 1300, Until Tue03/18/20 at 1300 $ Given 03/18/2020 1:00 PM CDT 7,000 Units heparinized saline 2 units/ml infusion Intravenous, CONTINUOUS PRN, Starting on Tue03/18/20 at 1207, Until Tue03/18/20 at 1207 $ New Bag/Syringe 03/18/2020 12:07 PM CDT 1,500 mL insulin aspart (NovoLOG) pen 0-6 Units 0-6 Units, Subcutaneous, 3 TIMES DAILY WITH MEALS, First dose on 03/15/20 at 0800, Until Discontinued, DO NOT HOLD [...] BLOOD GLUCOSE GREATER THAN 350. $ Given 03/19/2020 6:12 PM CDT 5 Units Left Arm $ Given 03/19/2020 12:24 PM CDT 3 Units L eft Arm $ Given 03/19/2020 8:41 AM CDT 4 Units Ri ght Arm iopamidol (ISOVUE 370) 76 % contrast Intravenous, ONCE PRN, Starting on Tue03/18/20 at 1428, Until Tue03/18/20 at 1428 $ Given 03/18/2020 2:28 PM CDT 200 mL iopamidol (ISOVUE 370) 76 % contrast Intravenous, CONTRAST ONCE, Starting on Tue03/19/20 at 1310, Until Tue03/19/20 at 2054 $ Given - Contrast 03/19/2020 1:11 PM CDT 100 mL lidocaine PF (XYLOCAINE MPF) 1 % injection Infiltration, ONCE PRN, Starting on Tue03/18/20 at 1252, Until Tue03/18/20 at 1252 $ Given 03/18/2020 12:52 PM CDT 1 mL lisinopril (PRINIVIL; ZESTRIL) tablet 2.5 mg 2.5 mg, Oral, DAILY, First dose (after last modification) on 03/16/20 at 1500, Until Discontinued $ Given 03/19/2020 8:42 AM CDT 2.5 mg $ Given 03/18/2020 9:00 AM CDT 2.5 mg $ Given 03/17/2020 11:34 AM CDT 2.5 mg lisinopril (PRINIVIL;ZESTRIL) tablet 5 mg 5 mg, Oral, DAILY, First dose on 03/15/20 at 0900, Until Discontinued $ Given 03/15/2020 9:54 AM CDT 5 mg metoprolol succinate XL 24hr (TOPROL XL) tablet 50 mg 50 mg, Oral, DAILY, First dose on 03/15/20 at 0900, Until Discontinued, May cut in half but do not crush or chew $ Given 03/19/2020 8:42 AM CDT 50 mg $ Given 03/18/2020 9:00 AM CDT 50 mg $ Given 03/17/2020 11:33 AM CDT 50 mg midazolam (VERSED) injection Intravenous, ONCE PRN, Starting on Tue03/18/20 at 1251, Until Tue03/18/20 at 1251 $ Given 03/18/2020 12:51 PM CDT 1 mg nitroGLYCERIN 100 mcg/ml injection Intra-coronary, ONCE PRN, Starting on Tue03/18/20 at 1257, Until Tue03/18/20 at 1257 $ Given 03/18/2020 12:57 PM CDT 200 mcg perflutren Lipid Microsphere (DEFINITY) injection SUSP 0.5 mL 0.5 mL, Intravenous, INTRA-PROCEDURE MULTIPLE, 6 doses, Starting on Tue03/17/20 at 1022, Until Tue03/19/20 at 2054, For Echo Procedure - Per Protocol Give slowly Shake well before using. $ Given 03/17/2020 10:35 AM CDT 0.5 mL polyethylene glycol 3350 (MIRALAX) packet 17 g 17 g, Oral, DAILY, First dose on 03/15/20 at 0900, Until Discontinued, Mix in 8 ounces of water, juice, soda, coffee or tea prior to administration $ Given 03/19/2020 8:41 AM CDT 17 g $ Given 03/17/2020 11:34 AM CDT 17 g $ Given 03/16/2020 8:36 AM CDT 17 g senna (SENOKOT) tablet 8.6 mg 8.6 mg, Oral, DAILY, First dose on 03/15/20 at 0900, Until Discontinued $ Given 03/19/2020 8:42 AM CDT 8.6 mg $ Given 03/18/2020 9:00 AM CDT 8.6 mg $ Given 03/17/2020 11:34 AM CDT 8.6 mg tamsulosin (FLOMAX) capsule 0.4 mg 0.4 mg, Oral, DAILY, First dose on 03/15/20 at 0900, Until Discontinued, At the same time every day after a meal. Do not crush, chew $ Given 03/19/2020 8:42 AM CDT 0.4 mg $ Given 03/18/2020 9:01 AM CDT 0.4 mg $ Given 03/17/2020 11:33 AM CDT 0.4 mg documented in this encounter Active and Recently Administered Medications Times are shown in CDT. Scheduled Medication Order 03/17/2020 03/18/2020 03/19/2020 0.9% NaCl injection 3 mL(Linked Group 1) 3 mL, Intracatheter, EVERY 8 HOURS, First dose on Tue03/14/20 at 2330, Until Discontinued, Flush peripheral IV catheter with 3 mL of normal saline every 8 hours. 0509 (Not Administered - Provider: Anjelica Billingsley RN - Reason: Patient sleeping)1227 ($ Given - Provider: Cierra Arauz RN)2118 ($ Given - Provider: Anjelica Billingsley RN) 0510 ($ Given - Provider: Anjelica Billingsley RN)1510 (Not Administered - Provider: Obdulia Ivory RN - Reason: See Comments - Comment: patient off floor)2011 ($ Given - Provider: Sudha Monreal RN) 0523 ($ Given - Provider: Sudha Monreal RN)1557 ($ Given - Provider: Roselyn Wall, DEANA) acetaminophen (TYLENOL) tablet 650 mg 650 mg, Oral, EVERY 6 HOURS, 20 doses, First dose on Tue03/19/20 at 0000, Last dose on 03/23/20 at 1800, Post-op 2313 ($ Given - Provider: Sudha Monreal RN) 0523 ($ Given - Provider: Sudha Monreal RN)1121 (Not Administered - Provider: Roselyn Wall, DEANA - Reason: NPO)1814 ($ Given - Provider: Roselyn Wall, DEANA) aspirin chew tablet 81 mg 81 mg, Oral, DAILY, First dose on 03/15/20 at 0900, Until Discontinued 1134 ($ Given - Provider: Cierra Arauz RN) 0900 ($ Given - Provider: Obdulia Ivory RN) 0843 ($ Given - Provider: Roselyn Wall RN) atorvastatin (LIPITOR) tablet 80 mg 80 mg, Oral, AT BEDTIME, First dose on Tue03/15/20 at 2100, Until Discontinued 2117 ($ Given - Provider: Anjelica Billingsley RN) 2011 ($ Given - Provider: Sudha Monreal RN) clopidogrel (plaVIX) tablet 600 mg (COMPLETED) 600 mg, Oral, ONCE, 1 dose, On Tue03/17/20 at 1445 1513 ($ Given - Provider: Cierra Arauz RN) clopidogrel (plaVIX) tablet 75 mg 75 mg, Oral, DAILY, First dose on Tue03/18/20 at 0900, Until Discontinued 09 ($ Given - Provider: Obdulia Ivory RN) 0843 ($ Given - Provider: Roselyn Wall RN) finasteride (PROSCAR) tablet 5 mg 5 mg, Oral, DAILY, First dose on Tue03/15/20 at 0900, Until Discontinued, Women who are or planning to become should not handle crushed or broken tablets 1133 ($ Given - Provider: Cierra Arauz RN) 0901 ($ Given - Provider: Obdulia Ivory RN) 0842 ($ Given - Provider: Roselyn Wall RN) furosemide (LASIX) tablet 20 mg 20 mg, Oral, DAILY, First dose on Tue03/16/20 at 1115, Until Discontinued 1134 ($ Given - Provider: Cierra Arauz RN) 0901 ($ Given - Provider: Obdulia Ivory RN) 0842 ($ Given - Provider: Roselyn Wall RN) heparin injection 5,000 Units 5,000 Units, Subcutaneous, EVERY 8 HOURS, First dose on Tue03/18/20 at 2200, Until Discontinued 2011 ($ Given - Provider: Sudha Monreal RN) 0523 ($ Given - Provider: Sudha Monreal RN)1556 ($ Given - Provider: Roselyn Wall RN) insulin aspart (NovoLOG) pen 0-6 Units 0-6 Units, Subcutaneous, 3 TIMES DAILY WITH MEALS, First dose on 03/15/20 at 0800, Until Discontinued, DO NOT HOLD [...] PHYSICIAN FOR BLOOD GLUCOSE GREATER THAN 350. 0800 (Not Administered - Provider: Cierra Arauz RN - Reason: See Comments - Comment: PT OFF UNIT)1225 ($ Given - Provider: Cierra Arauz RN)1740 ($ Given - Provider: Cierra Arauz RN) 0906 ($ Given - Provider: Obdulia Ivory, RN)1157 (Not Administered - Provider: Obdulia Ivory RN - Reason: See Comments - Comment: patient off floor)1916 ($ Given - Provider: Obdulia Ivory RN) 0841 ($ Given - Provider: Roselyn Wall, DEANA)1224 ($ Given - Provider: Roselyn Wall, RN)1812 ($ Given - Provider: Roselyn Wall, RN) iopamidol (ISOVUE 370) 76 % contrast Intravenous, CONTRAST ONCE, Starting on Tue03/19/20 at 1310, Until Tue03/19/20 at 2053 1311 ($ Given - Contrast - Provider: Ralf Boogie) lisinopril (PRINIVIL; ZESTRIL) tablet 2.5 mg 2.5 mg, Oral, DAILY, First dose (after last modification) on Tue03/16/20 at 1500, Until Discontinued 1134 ($ Given - Provider: Cierra Arauz RN) 0900 ($ Given - Provider: Obdulia Ivory RN) 0842 ($ Given - Provider: Roselyn Wall, DEANA) metoprolol succinate XL 24hr (TOPROL XL) tablet 50 mg 50 mg, Oral, DAILY, First dose on 03/15/20 at 0900, Until Discontinued, May cut in half but do not crush or chew 1133 ($ Given - Provider: Cierra Arauz RN) 0900 ($ Given - Provider: Obdulia Ivory, DEANA) 0842 ($ Given - Provider: Roselyn Wall, DEANA) perflutren Lipid Microsphere (DEFINITY) injection SUSP 0.5 mL 0.5 mL, Intravenous, INTRA-PROCEDURE MULTIPLE, 6 doses, Starting on Tue03/17/20 at 1022, Until Tue03/19/20 at 2054, For Echo Procedure - Per Protocol Give slowly Shake well before using. 1035 ($ Given - Provider: Emperatriz Vora RN) polyethylene glycol 3350 (MIRALAX) packet 17 g 17 g, Oral, DAILY, First dose on 03/15/20 at 0900, Until Discontinued, Mix in 8 ounces of water, juice, soda, coffee or tea prior to administration 1134 ($ Given - Provider: Cierra Arauz RN) 0907 (Not Administered - Provider: Obdulia Ivory RN - Reason: NPO) 0841 ($ Given - Provider: Roselyn Wall RN) senna (SENOKOT) tablet 8.6 mg 8.6 mg, Oral, DAILY, First dose on 03/15/20 at 0900, Until Discontinued 1134 ($ Given - Provider: Cierra Arauz RN) 0900 ($ Given - Provider: Obdulia Ivory RN) 0842 ($ Given - Provider: Roselyn Wall, DEANA) tamsulosin (FLOMAX) capsule 0.4 mg 0.4 mg, Oral, DAILY, First dose on 03/15/20 at 0900, Until Discontinued, At the same time every day after a meal. Do not crush, chew 1133 ($ Given - Provider: Cierra Arauz RN) 0901 ($ Given - Provider: Obdulia Ivory, DEANA) 0842 ($ Given - Provider: Roselyn Wall, DEANA) PRN Medication Order 03/17/2020 03/18/2020 03/19/2020 0.9% NaCl infusion (COMPLETED) Intravenous, CONTINUOUS PRN, Starting on Tue03/18/20 at 1207, Until Tue03/18/20 at 1207 1207 ($ New Bag/Syringe - Provider: Feliciano Tsai RN)1448 (Stopped - Provider: Feliciano Tsai RN) 0.9% NaCl injection 1-10 mL(Linked Group 1) 1-10 mL, Intracatheter, PRN, Other, peripheral line flush, Starting on Tue03/14/20 at 2259, Until Tue03/19/20 at 2053, Flush peripheral IV catheter with 1-10 mL of normal saline before and after medications and prn to clear blood from the line or to verify patency. clopidogrel (plaVIX) tablet (COMPLETED) Oral, ONCE PRN, Starting on Tue03/18/20 at 1442, Until Tue03/18/20 at 1442 1442 ($ Given - Provider: Feliciano Tsai RN) dextrose IV 12.5-25 g 12.5-25 g (25-50 mL), Intravenous, PRN, Bedside Glucose less than 70 mg/dL -If NOT able to eat and/or NPO and with IV Access, Starting on Tue03/15/20 at 0240, Until Tue03/19/20 at 2053, If NOT able to eat and/or NPO [...] 80 mg/dl. NOTIFY PROVIDER OF HYPOGLYCEMIC EVENT. fentaNYL (PF) (SUBLIMAZE) injection (COMPLETED) Intravenous, ONCE PRN, Starting on Tue03/18/20 at 1252, Until Tue03/18/20 at 1252 1252 ($ Given - Provider: Feliciano Tsai RN) glucagon (GLUCAGEN) injection 1 mg 1 mg, Intramuscular, PRN, Bedside Glucose less than 70 mg/dL - If NOT able to eat and/or NPO and withOUT IV Access, Starting on Tue03/15/20 at 0240, Until Tue03/19/20 at 2053, If NOT able to eat and/or NPO [...] does not have swallowing difficulties, Starting on 03/15/20 at 0240, Until 03/19/20 at 2054, If able to eat and does not [...] 80 mg/dl. NOTIFY PROVIDER OF HYPOGLYCEMIC EVENT. heparin injection (COMPLETED) Intravenous, ONCE PRN, Starting on Tue03/18/20 at 1300, Until Tue03/18/20 at 1300 1300 ($ Given - Provider: Feliciano Tsai RN) heparinized saline 2 units/ml infusion (COMPLETED) Intravenous, CONTINUOUS PRN, Starting on Tue03/18/20 at 1207, Until Tue03/18/20 at 1207 1207 ($ New Bag/Syringe - Provider: Feliciano Tsai RN - Comment: for table and acist) iopamidol (ISOVUE 370) 76 % contrast (COMPLETED) Intravenous, ONCE PRN, Starting on Tue03/18/20 at 1428, Until Tue03/18/20 at 1428 1428 ($ Given - Provider: Oliver Biggs MD) lidocaine PF (XYLOCAINE MPF) 1 % injection (COMPLETED) Infiltration, ONCE PRN, Starting on Tue03/18/20 at 1252, Until Tue03/18/20 at 1252 1252 ($ Given - Provider: Elif Steele MD - Comment: R radial) midazolam (VERSED) injection (COMPLETED) Intravenous, ONCE PRN, Starting on Tue03/18/20 at 1251, Until Tue03/18/20 at 1251 1251 ($ Given - Provider: Feliciano Tsai RN) nitroGLYCERIN 100 mcg/ml injection (COMPLETED) Intra-coronary, ONCE PRN, Starting on Tue03/18/20 at 1257, Until Tue03/18/20 at 1257 1257 ($ Given - Provider: Elif Steele MD - Comment: R radial) Linked Groups Order Group 1: SALINE LOCK, INSERT AND MAINTAIN (CANCELED) Routine, CONTINUOUS, Starting on Tue03/14/20 at 2300, Until Specified, New collection And 0.9% NaCl injection 3 mLJump to med 3 mL, Intracatheter, EVERY 8 HOURS, First dose on Tue03/14/20 at 2330, Until Discontinued, Flush peripheral IV catheter with 3 mL of normal saline every 8 hours. And 0.9% NaCl injection 1-10 mLJump to med 1-10 mL, Intracatheter, PRN, Other, peripheral line flush, Starting on Tue03/14/20 at 2259, Until Tue03/19/20 at 2054, Flush peripheral IV catheter with 1-10 mL of normal saline before and after medications and prn to clear blood from the line or to verify patency. documented in this encounter
--- OUTSIDE RECORDS SUMMARY | 2024-05-22 02:14 | XMS_ITS | Encounter Summary ---
Author Organization [facility] Health Address [address] [place] [address] Care Team Providers Care Side Boss Name Role Phone Unavailable Primary Care Provider Unavailabl e Reason for Visit * Reason Onset Date Comments Follow-up 04/23/2020 Encounter Details Date Type Department Care Team (Late st Contact Info) Description 04/23/2020 Telephone [facility] [address] [facility] [address] [place] [address] Kaylee Mccain, BUILDING TECH-TACTICAL RESPONSE GROUP OFFICER [address] [place] [address] Follow-up Social History Tobacco Use Types Packs/Day [...] Telephone Encounter - Kaylee Mccain APRN-CNP - 04/23/2020 2:45 PM GREEN CHAIN MARKER Fax received. N CHAIN MARKER * Telephone Encounter - Kaylee Mccain APRN-CNP - 04/23/2020 2:03 PM GREEN CHAIN MARKER Called and spoke with office staff at extension [phone]. Recent echo from 04/15 faxed to EHR. Reviewed results over phone. Nothing further at this time. OLIVIA Mills N CHAIN MARKER documented in this encounter Plan of Treatment Not on file documented as of this encounter Visit Diagnoses Not on filedocumented in this encounter
--- OUTSIDE RECORDS SUMMARY | 2024-05-22 02:14 | XMS_ITS | Encounter Summary ---
Author Organization [facility] Health Address [address] [place] [address] Care Team Providers Care Desk Pen Set Assembler Name Role Phone Unavailable Primary Care Provider Unavailabl e Reason for Visit * Reason Onset Date Comments Follow-up 04/22/2020 Encounter Details Date Type Department Care Team (Late st Contact Info) Description 04/22/2020 Telephone [facility] [address] [facility] [address] [place] [address] Kaylee Mccain, FISH BAILER-METER REPAIR SHOP SUPERVISOR [address] [place] [address] Follow-up Social History Tobacco Use Types Packs/Day [...] Telephone Encounter - Kaylee Mccain APRN-CNP - 04/22/2020 2:20 PM GANG PUSHER Called and spoke with patient and . Plan for dental appointment so clearance can be completed. Discussed this at length. Patient will get a dentist RAZA and notify this ELECTRICAL SERVICE TECHNICIAN with he fax number for clearance letter to be faxed. No further questions at this time. Called and left voicemail for updated ECHO to be faxed to EHR. OLIVIA Mills PUSHER documented in this encounter Plan of Treatment Not on file documented as of this encounter Visit Diagnoses Not on filedocumented in this encounter
--- OUTSIDE RECORDS SUMMARY | 2024-05-22 02:14 | XMS_ITS | Encounter Summary ---
Author Organization [facility] Health Address [address] [facility] [place] [address] Care Team Providers Care Hand I Thermal Cutter Name Role Phone Unavailable Primary Care Provider Unavailabl e Reason for Visit * Reason Onset Date Comments Scheduling 03/27/2020 Encounter Details Date Type Department Care Team (Late st Contact Info) Description 03/27/2020 Telephone [facility] [address] [facility] [address] [place] [address] Kaylee Mccain, LUMBER PULLER-BODY STRAIGHTENER [address] [place] [address] Scheduling Social History Tobacco Use Types Packs/Day [...] Telephone Encounter - Kaylee Mccain APRN-CNP - 03/27/2020 10:10 AM ARTIST SCIENTIFIC Spoke with Dr. Burdick, discussed the patient next steps. After speaking with Dr. Dumont, would like to proceed with MATT. Discussed scheduling with him vs [facility]. Dr. Burdick stated he is followingthe patient closely, plans to get a repeat ECHO to check the valves and will notify [facility] again when it is time for intervention. At this time, he does not feel it is necessary as patient remains stable. OLIVIA Mills ST SCIENTIFIC documented in this encounter Plan of Treatment Not on file documented as of this encounter Visit Diagnoses Not on filedocumented in this encounter
--- OUTSIDE RECORDS SUMMARY | 2024-05-22 02:14 | XMS_ITS | Encounter Summary ---
Author Organization [facility] Address [address] [facility] [place] [address] Care Team Providers Care Combine Driver Name Role Phone Unavailable Primary Care Provider Unavailabl e Reason for Referral * Radiology Services (Routine) - Closed Specialty Diagnoses / Procedures Referred By David t Referred To Contact Cardiac Cath Diagnoses Aortic valve stenosis, etiology of cardiac valve disease unspecified Procedures CCL TRANSCATHETER AORTIC VALVE REPLACEMENT Kaylee Bowens APRN-CNP [address] [place] [address] [facility] Cardiac Underwear Hemmer [address] [place] [address] Referral ID Status Reason Start Date Expiration Date Visits Re quested Visits Authorized [id number] Closed 04/29/2020 04/29/2021 1 1 E ENGINEER Reason for Visit * Reason Onset Date Comments Follow-up 04/25/2020 Encounter Details Date Type Department Care Team (Late st Contact Info) Description 04/25/2020 Telephone [facility] [address] [facility] [address] [place] [address] Kaylee Bowens APRN-CNP [address] [place] [address] Follow-up Social History Tobacco Use Types Packs/Day [...] as of this encounter Miscellaneous Notes * Addendum Note - Kaylee Bowens APRN-CNP - 04/25/2020 10:31 AM CSTAddended by: KAYLEE BOWENS on: 04/25/2020 10:31 AM Modules accepted: Orders E ENGINEER * Telephone Encounter - Kaylee Bowens APRN-CNP - 04/25/2020 8:40 AM BARGE ENGINEER Called patient and spoke with him and his . He is agreeable to procedure April 29. Reviewed all medications. What to take and what not to take. Metoprolol will be held day of procedure. Reviewed allergies. Reviewed directions to the facility day of. NPO at midnight. Discussed possible length of stay. Patient to have all labs today. No questions at this time. Will arrive at 0800 on April 29. Will call patient with lab results as they arrive. Nothing further at this time. Stopped taking atorvastatin and back on pravastatin: pravastatin 40 mg nightly OLIVIA Mills E ENGINEER documented in this encounter Plan of Treatment Pending Results Name Type Priority Associated Diagnoses Date /Time CCL TRANSCATHETER AORTIC VALVE REPLACEMENT Cardiac Underwear Hemmer Radiant Routine Aortic valve stenosis, etiology of cardiac valve disease unspecified 04/29/2020 1:25 PM BARGE ENGINEER Scheduled Orders Name Type Priority Associated Diagnoses Orde r Schedule CCL TRANSCATHETER AORTIC VALVE REPLACEMENT Cardiac Underwear Hemmer Radiant Routine Aortic valve stenosis, etiology of cardiac valve disease unspecified Expected: 04/29/2020, Expires: 04/25/2021 documented as of this encounter Results * SARS-COV-2 (COVID-19) IN HOUSE (04/25/2020 2:21 PM BARGE ENGINEER) COVID-19 PCR Not detected Not detected 04/26/2020 7:26 PM BARGE ENGINEER [facility] Microbiology SPECIMEN FROM NASOPHARYNGEAL STRUCTURE / Unknown Collection / Unknown 04/25/2020 2:21 PM BARGE ENGINEER 04/25/2020 2:21 PM BARGE ENGINEER Narrative [facility] - 04/26/2020 7:26 PM BARGE ENGINEER This nucleic acid amplification assay performance was validated by [facility]. This test has been authorized [...] EUA assay are available upon request. Kaylee Bowens CANDY DIPPER-CERTIFIED PEER SPECIALIST LAB - MICROBIOLO GY ORDERABLES [facility] [address] [place], [address] [phone] * (ABNORMAL) COMPREHENSIVE METABOLIC PANEL (04/25/2020 11:32 AM [facility]) BUN 19 7 - 26 mg/dL 04/25/2020 1:46 PM [facility] Creatinine 1.1 0.6 - 1.2 mg/dL 04/25/2020 1:46 PM [facility] Sodium 135(L) 136 - 145 mmol/L 04/25/2020 1:46 PM [facility] Potassium 4.5 3.5 - 4.5 mmol/L 04/25/2020 1:46 PM [facility] Chloride 97(L) 98 - 107 mmol/L 04/25/2020 1:46 PM [facility] CO2 26 22 - 29 mmol/L 04/25/2020 1:46 PM [facility] Glucose 51(LL) 70 - 115 mg/dL 04/25/2020 1:46 PM [facility] Calcium 9.1 8.4 - 10.2 mg/dL 04/25/2020 1:46 PM [facility] Protein Total 7.2 6.0 - 8.3 g/dL 04/25/2020 1:46 PM [facility] Albumin 3.6 3.4 - 5.0 g/dL 04/25/2020 1:46 PM [facility] Bilirubin Total 1.1 0.2 - 1.2 mg/dL 04/25/2020 1:46 PM [facility] Alkaline Phosphatase 70 40 - 150 Units/L 04/25/2020 1:46 PM [facility] ALT 12 0 - 55 Units/L 04/25/2020 1:46 PM [facility] AST 18 5 - 34 Units/L 04/25/2020 1:46 PM [facility] Anion Gap 17 8 - 18 04/25/2020 1:46 PM [facility] BUN/Creatinine Ratio 17 7 - 23 04/25/2020 1:46 PM [facility] Osmolality Calculated 280 270 - 300 mOsm/kg 04/25/2020 1:46 PM [facility] Albumin/Globulin Ratio 1.0(L) 1.1 - 2.3 04/25/2020 1:46 PM BARGE ENGINEER [facility] eGFR >60 >60 mL/min/1.7 3 m2 04/25/2020 1:46 PM [facility] Blood BLOOD SPECIMEN / Unknown Lab Venipuncture / Unknown 04/25/2020 11:32 AM BARGE ENGINEER 04/25/2020 12:26 PM BARGE ENGINEER Kaylee Camron Bowens CANDY DIPPER-CERTIFIED PEER SPECIALIST LAB - CHEMISTRY ORDERABLES [facility] [address] [place] [address], [facility] [phone] * (ABNORMAL) CBC W AUTO DIFFERENTIAL (04/25/2020 11:32 AM BARGE ENGINEER) WBC 8.1 3.5 - 10.5 10? 3 /uL 04/25/2020 12:34 PM [facility] RBC 4.03(L) 4.30 - 5.70 10? 6 /uL 04/25/2020 12:34 PM [facility] Hemoglobin 11.7(L) 13.5 - 17.5 g/dL 04/25/2020 12:34 PM [facility] Hematocrit 36.4(L) 39.0 - 50.0 % 04/25/2020 12:34 PM [facility] MCV 90.3 81.0 - 97.0 fL 04/25/2020 12:34 PM [facility] MCH 29.0 28.0 - 34.0 pg 04/25/2020 12:34 PM [facility] MCHC 32.1 32.0 - 36.0 g/dL 04/25/2020 12:34 PM [facility] Platelet Count 178 150 - 400 10? 3 /uL 04/25/2020 12:34 PM [facility] RDW-SD 52.4(H) 36.0 - 50.0 fL 04/25/2020 12:34 PM [facility] RDW-CV 16.1(H) 11.2 - 14.8 % 04/25/2020 12:34 PM [facility] MPV 10.8 9.3 - 12.8 fL 04/25/2020 12:34 PM [facility] nRBC Absolute 0.00 0 10? 3 /uL 04/25/2020 12:34 PM [facility] nRBC Auto 0.0 0 /100 WBC 04/25/2020 12:34 PM [facility] Neutrophils % 70.0 35.0 - 70.0 % 04/25/2020 12:34 PM [facility] Lymphocytes % 18.1(L) 19.7 - 55.1 % 04/25/2020 12:34 PM [facility] Monocytes % 9.1 3.0 - 15.0 % 04/25/2020 12:34 PM [facility] Eosinophils % 1.7 0.0 - 6.0 % 04/25/2020 12:34 PM [facility] Basophil % 0.7 0.0 - 1.5 % 04/25/2020 12:34 PM [facility] Neutrophils Absolute 5.7 1.6 - 7.0 10? 3 /uL 04/25/2020 12:34 PM [facility] Lymphocyte Absolute 1.5 0.8 - 2.9 10? 3 /uL 04/25/2020 12:34 PM [facility] Monocytes Absolute 0.74(H) 0.14 - 0.66 10? 3 /uL 04/25/2020 12:34 PM [facility] Eosinophils Absolute 0.14 0.00 - 0.45 10? 3 /uL 04/25/2020 12:34 PM [facility] Basophils Absolute 0.06 0.00 - 0.06 10? 3 /uL 04/25/2020 12:34 PM [facility] Immature Granulocytes % 0.4 0.0 - 1.0 % 04/25/2020 12:34 PM [facility] Blood BLOOD SPECIMEN / Unknown Lab Venipuncture / Unknown 04/25/2020 11:32 AM BARGE ENGINEER 04/25/2020 12:26 PM BARGE ENGINEER Kaylee Bowens CANDY DIPPER-CERTIFIED PEER SPECIALIST LAB - HEMATOLOGY ORDERABLES [facility] [address] [place] [id number], [facility] [phone] * PT-INR [facility] (04/25/2020 11:32 AM BARGE ENGINEER) PT 13.4 12.1 - 14.8 Seconds 04/25/2020 12:52 PM BARGE ENGINEER [facility] INR 1.1 See Comment 04/25/2020 12:52 PM [facility] Comment:The suggested therap eutic range for standard coumadin (warfarin) therapy is an INR of 2.0-3.0. For high-risk patients (Mechanical Mitral Valve Prosthesis, etc.), the suggested prophylactic therapeutic range is an INR of 2.5-3.5. Blood BLOOD SPECIMEN / Unknown Lab Venipuncture / Unknown 04/25/2020 11:32 AM BARGE ENGINEER 04/25/2020 12:42 PM BARGE ENGINEER Kaylee Bowens CANDY DIPPER-CERTIFIED PEER SPECIALIST LAB - COAGULATIO N ORDERABLES [facility] [address] [place] [address], [facility] [phone] documented in this encounter Visit Diagnoses Diagnosis Pre-operative clearance- Primary Preoperative examination, unspecified Class 2 congestive heart failure, chronic, combined (HCC) Aortic valve stenosis, etiology of cardiac valve disease unspecified documented in this encounter
--- OUTSIDE RECORDS SUMMARY | 2024-05-22 02:14 | XMS_ITS | Encounter Summary ---
Author Organization [facility] Health Address [address] [place] [address] Care Team Providers Care Lang Path Therapist Name Role Phone Unavailable Primary Care Provider Unavailabl e Encounter Details Date Type Department Care Team (Latest Contact Info) Description 04/25/2020 10:40 AM CLINIC SPECIALIST - 04/25/2020 11:39 AM CLINIC SPECIALIST Hospital Encounter [facility] OP DRAW STATION [address] [place] [phone] Kaylee Mccain, TAG MARKER-CHISEL TRIMMER [address] [place] [address] Discharge Disposition: Home or Self Care Social [...] COVID-19? 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/2020 10:39 AM CLINIC SPECIALIST documented as of this encounter Functional Status [...] Procedure Name Priority Date/Time Associated Diagnosis Comments PT-INR SL Routine 04/25/2020 11:32 AM CLINIC SPECIALIST Pre-operative clearance Class 2 congestive heart failure, chronic, combined (HCC) Aortic valve stenosis, etiology of cardiac valve disease unspecified URINALYSIS W/MICROSCOPIC NO CULTURE Routine 04/25/2020 11:32 AM CLINIC SPECIALIST Preop examination TYPE + SCREEN PANEL Routine 04/25/2020 1 1:32 AM CLINIC SPECIALIST Preop examination CBC W AUTO DIFFERENTIAL Routine 04/25/2020 11:32 AM CLINIC SPECIALIST Pre-operative clearance Class 2 congestive heart failure, chronic, combined (HCC) Aortic valve stenosis, etiology of cardiac valve disease unspecified COMPREHENSIVE METABOLIC PANEL Routine 04/25/2020 11:32 AM CLINIC SPECIALIST Pre-operative clearance Class 2 congestive heart failure, chronic, combined (HCC) Aortic valve stenosis, etiology of cardiac valve disease unspecified documented in this encounter Results * (ABNORMAL) COMPREHENSIVE METABOLIC PANEL (04/25/2020 11:32 AM CLINIC SPECIALIST) BUN 19 7 - 26 mg/dL 04/25/2020 1:46 PM [facility] Creatinine 1.1 0.6 - 1.2 mg/dL 04/25/2020 1:46 PM [facility] Sodium 135(L) 136 - 145 mmol/L 04/25/2020 1:46 PM [facility] Potassium 4.5 3.5 - 4.5 mmol/L 04/25/2020 1:46 PM [facility] Chloride 97(L) 98 - 107 mmol/L 04/25/2020 1:46 PM [facility] CO2 26 22 - 29 mmol/L 04/25/2020 1:46 PM [facility] Glucose 51(LL) 70 - 115 mg/dL 04/25/2020 1:46 PM [facility] Calcium 9.1 8.4 - 10.2 mg/dL 04/25/2020 1:46 PM [facility] Protein Total 7.2 6.0 - 8.3 g/dL 04/25/2020 1:46 PM [facility] Albumin 3.6 3.4 - 5.0 g/dL 04/25/2020 1:46 PM [facility] Bilirubin Total 1.1 0.2 - 1.2 mg/dL 04/25/2020 1:46 PM [facility] Alkaline Phosphatase 70 40 - 150 Units/L 04/25/2020 1:46 PM [facility] ALT 12 0 - 55 Units/L 04/25/2020 1:46 PM [facility] AST 18 5 - 34 Units/L 04/25/2020 1:46 PM [facility] Anion Gap 17 8 - 18 04/25/2020 1:46 PM [facility] BUN/Creatinine Ratio 17 7 - 23 04/25/2020 1:46 PM [facility] Osmolality Calculated 280 270 - 300 mOsm/kg 04/25/2020 1:46 PM [facility] Albumin/Globulin Ratio 1.0(L) 1.1 - 2.3 04/25/2020 1:46 PM [facility] eGFR >60 >60 mL/min/1.7 3 m2 04/25/2020 1:46 PM [facility] Blood BLOOD SPECIMEN / Unknown Lab Venipuncture / Unknown 04/25/2020 11:32 AM CLINIC SPECIALIST 04/25/2020 12:26 PM CLINIC SPECIALIST Kaylee Mccain TAG MARKER-CHISEL TRIMMER LAB - CHEMISTRY ORDERABLES [facility] [address] [place] [address], [facility] [phone] * (ABNORMAL) CBC W AUTO DIFFERENTIAL (04/25/2020 11:32 AM CLINIC SPECIALIST) WBC 8.1 3.5 - 10.5 10? 3 /uL 04/25/2020 12:34 PM [facility] RBC 4.03(L) 4.30 - 5.70 10? 6 /uL 04/25/2020 12:34 PM [facility] Hemoglobin 11.7(L) 13.5 - 17.5 g/dL 04/25/2020 12:34 PM [facility] Hematocrit 36.4(L) 39.0 - 50.0 % 04/25/2020 12:34 PM [facility] MCV 90.3 81.0 - 97.0 fL 04/25/2020 12:34 PM [facility] MCH 29.0 28.0 - 34.0 pg 04/25/2020 12:34 PM [facility] MCHC 32.1 32.0 - 36.0 g/dL 04/25/2020 12:34 PM [facility] Platelet Count 178 150 - 400 10? 3 /uL 04/25/2020 12:34 PM [facility] RDW-SD 52.4(H) 36.0 - 50.0 fL 04/25/2020 12:34 PM [facility] RDW-CV 16.1(H) 11.2 - 14.8 % 04/25/2020 12:34 PM [facility] MPV 10.8 9.3 - 12.8 fL 04/25/2020 12:34 PM [facility] nRBC Absolute 0.00 0 10? 3 /uL 04/25/2020 12:34 PM [facility] nRBC Auto 0.0 0 /100 WBC 04/25/2020 12:34 PM [facility] Neutrophils % 70.0 35.0 - 70.0 % 04/25/2020 12:34 PM [facility] Lymphocytes % 18.1(L) 19.7 - 55.1 % 04/25/2020 12:34 PM [facility] Monocytes % 9.1 3.0 - 15.0 % 04/25/2020 12:34 PM [facility] Eosinophils % 1.7 0.0 - 6.0 % 04/25/2020 12:34 PM [facility] Basophil % 0.7 0.0 - 1.5 % 04/25/2020 12:34 PM [facility] Neutrophils Absolute 5.7 1.6 - 7.0 10? 3 /uL 04/25/2020 12:34 PM [facility] Lymphocyte Absolute 1.5 0.8 - 2.9 10? 3 /uL 04/25/2020 12:34 PM [facility] Monocytes Absolute 0.74(H) 0.14 - 0.66 10? 3 /uL 04/25/2020 12:34 PM [facility] Eosinophils Absolute 0.14 0.00 - 0.45 10? 3 /uL 04/25/2020 12:34 PM [facility] Basophils Absolute 0.06 0.00 - 0.06 10? 3 /uL 04/25/2020 12:34 PM [facility] Immature Granulocytes % 0.4 0.0 - 1.0 % 04/25/2020 12:34 PM [facility] Blood BLOOD SPECIMEN / Unknown Lab Venipuncture / Unknown 04/25/2020 11:32 AM CLINIC SPECIALIST 04/25/2020 12:26 PM [facility] Kaylee Mccain TAG MARKER-CHISEL TRIMMER LAB - HEMATOLOGY ORDERABLES Performing Organization Address [facility]/ZIP Co de Phone Number [facility] [address] [place] [address], [facility] [phone] * PT-INR [facility] (04/25/2020 11:32 AM CLINIC SPECIALIST) PT 13.4 12.1 - 14.8 Seconds 04/25/2020 [...] Lab Venipuncture / Unknown 04/25/2020 11:32 AM CLINIC SPECIALIST 04/25/2020 12:42 PM [facility] COAGULATIO N ORDERABLES Performing Organization Address [facility]/ZIP Co de Phone Number [facility] [address] [place] [address], [facility] [phone] * (ABNORMAL) URINALYSIS W/MICROSCOPIC NO CULTURE (04/25/2020 11:32 AM CLINIC SPECIALIST) Color UA Yellow Straw, Yellow, Colorless 04/25/2020 12:45 PM [facility] Clarity UA Clear Clear, Slt Cloudy 04/25/2020 12:45 PM [facility] Specific [place] UA 1.016 1.005 - 1.030 04/25/2020 12:45 [...] Unknown Collection / Unknown 04/25/2020 11:32 AM CLINIC SPECIALIST 04/25/2020 12:26 PM CLINIC SPECIALIST Narrative [facility] - 04/25/2020 12:45 PM CLINIC SPECIALIST Kaylee Mccain APRN-CHISEL TRIMMER LAB - URINALYSIS ORDERABLES [address] [address], [facility] [phone] * TYPE + SCREEN PANEL (04/25/2020 11:32 AM CLINIC SPECIALIST) Antibody Screen NEG 0 1:36 PM CLINIC SPECIALIST [facility] ABO Rh A POS 04/25/2020 1:36 PM [facility]OD [facility] LAB Blood Bank BLOOD SPECIMEN / Unknown Lab Venipuncture / Unknown 04/25/2020 11:32 AM CLINIC SPECIALIST 04/25/2020 12:23 PM CLINIC SPECIALIST Kaylee Mccain TAG MARKER-CHISEL TRIMMER LAB - BLOOD BANK ORDERABLES [facility] [address] [place] [address], [facility] [phone] documented in this encounter Visit Diagnoses Diagnosis Preop examination- Primary Preoperative examination, unspecified Pre-operative clearance Preoperative examination, unspecified Class 2 congestive heart failure, chronic, combined (HCC) Aortic valve stenosis, etiology of cardiac valve disease unspecified documented in this encounter
--- OUTSIDE RECORDS SUMMARY | 2024-05-22 02:14 | XMS_ITS | Encounter Summary ---
Author Organization [facility] Health Address [address] [place] [address] Care Team Providers Care Promotions Firm Accounts Manager Name Role Phone Unavailable Primary Care Provider Unavailabl e Encounter Details Date Type Department Care Team (Latest Contact Info) Description 04/25/2020 Travel Social History Tobacco Use Types Packs/Day Years [...] COVID-19? 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/2020 10:39 AM RELAYS DRAFTSPERSON documented as of this encounter Functional Status [...]
--- OUTSIDE RECORDS SUMMARY | 2024-05-22 02:16 | XMS_ITS | Clinical Summary ---
Author Organization [facility] Address [address] [place] [address] Care Team Providers Care Charge Master Specialist Name Role Phone Floyd Mckinney MD Primary Care Provider [phone] Jarvis Burdick MD Unavailable [phone] Allergies No known active allergies Medications tamsulosin (FLOMAX) 0.4 mg extended release capsule 0.4 mg Acti ve pravastatin (PRAVACHOL) 40 mg tablet Take 40 mg by mouth nightly Active aspirin 81 mg enteric coated tablet Take 81 mg by mouth daily Active metoprolol XL (TOPROL-XL) 25 mg extended release tablet Take 12.5 mg by mouth daily Active finasteride (PROSCAR) 5 mg tablet Take 5 mg by mouth daily Active metFORMIN (FORTAMET) 1,000 mg 24 hr tablet Take 1,000 mg by mouth 2 (two) times a day Active glimepiride (AMARYL) 2 mg tabletIndicatio ns:type 2 diabetes mellitus Take 2 mg by mouth daily before breakfast Active lisinopriL (PRINIVIL,ZESTR IL) 5 mg tablet Take 2.5 mg by mouth daily 1 Active furosemide (LASIX) 20 mg tablet Take 20 mg by mouth daily 0 Active clopidogreL (PLAVIX) 75 mg tablet Take 1 tablet (75 mg total) by mouth daily 30 tablet 1 1 Active acetaminophen (TYLENOL) 325 mg tabletIndicatio ns:Pain Take 2 tablets (650 mg total) by mouth every 4 (four) hours as needed for pain 90 tablet 1 1 Active Active Problems Problem Noted Date Diagnosed Date Coronary artery disease (CAD) excluded 1 Surgical History Surgery Date Site/Laterality Comments UMBILICAL HERNIA REPAIR 05/23/1989 - 05/22/1990 LAPAROSCOPIC CHOLECYSTECTOMY SPINAL FUSION 05/23/1998 - 05/22/1999 CATARACT EXTRACTION, BILATERAL CARDIAC VALVE REPLACEMENT 04/22/2020 - 05/22/2020 AVR/TAVR Medical History Medical History Date Comments Arrhythmia bradycardia, wea k heart Type 2 diabetes mellitus (HCC) Thin skin bruises easily Psoriasis S/P angioplasty 2019 Wears dentures upper and lower [place], old History of CHF (congestive heart failure) Social History Tobacco Use Types Packs/Day Years Used Date Smoking Tobacco: Former Cigarettes 0.3 30 1 969 - 1998 Cigars Smokeless Tobacco: Never Tobacco Cessation:Counseling Given: No AUDIT-C Answer Date Recorded Q1: How often do you have a drink containing alc ohol? Never 12/30/2020 Q2: How many drinks containi ng alcohol do you have on a typical day when you are drinking? 1 or 2 12/30/2020 Q3: How often do you have six or more drinks on one occasion? Never 12/30/2020 Sex and Gender Information Value Date Recorded Sex Assigned at Not on file Legal Sex Male 1:00 AM CONCRETE PAVING SUPERVISOR Gender Identity Not on file Sexual Orientation Not on file Obstetrics History Last Filed Vital Signs Vital Sign Reading Time Taken Comments Blood Pressure 116/74 12/31/2020 11:00 AM CDT Pulse 57 12/31/2020 11:00 AM CDT Temperature 36.4 ??C (97.5 ??F) 12/31/2020 7:00 AM CD T Respiratory Rate 20 12/31/2020 11:00 AM CDT Oxygen Saturation 98% 12/31/2020 11:00 AM CDT Inhaled Oxygen Concentration - - Weight 92.6 kg (204 lb 3.2 oz) 12/31/2020 3:45 A M CDT Height 180.3 cm (5' 11 ) 12/31/2020 8:59 AM CDT Body Mass Index 28.48 12/31/2020 3:45 AM CDT Plan of Treatment Not on file Medical Devices Implanted Type Area Ethnographer Device Identifier Shelf Expiration Date Model / Serial / Lot Medtronic Cardiac Rhythm Mgmt [id number] Sprint Quattro Secure 62cm Tripolar Screw In Extendable - [id number] - [id number] Implanted:Qty : 1 on 12/30/2020 by Mehran Swann MD at [facility] Other - see comments N/A: Chest [employer] Inc [id number] 04/30/2021 [id number] / [id number] / Description:AICD Medtronic Inc [id number] Pacemaker Cardiac [place] Vr [id number] - [id number] - [id number] Implanted:Qty : 1 on 12/30/2020 by Mehran Swann MD at [facility] N/A: Chest [employer] 01/17/2022 [id number] / [id number] / Insurance [address] [facility] Member Subscriber Plan / Payer ( fective 2019-Present) Name:Padmini Amador Relation to Subscriber:Self Name:Padmini Amador Payer ID:[id number] (NAIC) Type:MEDICARE RISK OTHER Address: [place] [id number] [address] [employer] Member Subscriber Plan / Payer ( fective 2020-Present) Name:Padmini Amador Relation to Subscriber:Self Name:Padmini Amador Payer ID:[id number] (NAIC) Type:MEDICARE RISK OTHER Address: [place] [id number] Advance Directives For more information, please contact: [phone] * Full Code (Latest Code Status on File) Date Activated Date Inactivated Comments 12/30/2020 3:45 PM 12/31/2020 6:01 PM Care Teams Charge Master Specialist Relationship Specialty Start Date End Date Floyd Mckinney MD [address] [place] [address] PCP - General 03/11/20 Jarvis Burdick MD [address] [place] [address] Consulting Physician Cardiovascular Disease 12/26/20
--- OUTSIDE RECORDS SUMMARY | 2024-05-22 02:16 | XMS_ITS | Referral Summary ---
Author Organization [facility] Address [address] [place] [address] Care Team Providers Care Flatcar Whacker Name Role Phone Floyd Mckinney MD Primary Care Provider [phone] Jarvis Burdick MD Unavailable [phone] Allergies No known active allergies Medications tamsulosin [...] Date Coronary artery disease (CAD) excluded 1 Social History Tobacco Use Types Packs/Day Years [...] on file Legal Sex Male 1:00 AM TREE SPECIALIST Gender Identity Not on file Sexual Orientation [...] on file Medical Devices Implanted Type Area Door Fitter Device Identifier Shelf Expiration Date Model / Serial / Lot Medtronic Cardiac Rhythm Mgmt [id number] Sprint Quattro Secure 62cm Tripolar Screw In Extendable - [id number] - [id number] Implanted:Qty : 1 on 12/30/2020 by Mehran Swann MD at [facility] Other - see comments N/A: Chest [employer] [id number] 04/30/2021 [id number] / [id number] / Description:AICD Med[employer]onic Inc [id number] Pacemaker Cardiac [place] Vr [id number] - [id number] - [id number] Implanted:Qty : 1 on 12/30/2020 by Mehran Swann MD at [facility] N/A: Chest [employer] 01/17/2022 [id number] / [id number] S / Insurance [facility] Advance Directives For more information, please contact: [phone] * Full Code (Latest Code Status on File) Date Activated Date Inactivated Comments 12/30/2020 3:45 PM 12/31/2020 6:01 PM Care Teams Flatcar Whacker Relationship Specialty Start Date End Date Floyd Mckinney MD [address] [place] [address] PCP - General 03/11/20 Jarvis Burdick MD [address] [place] [address] Consulting Physician Cardiovascular Disease 12/26/20
--- OUTSIDE RECORDS SUMMARY | 2024-05-22 02:16 | XMS_ITS | Encounter Summary ---
Author Organization [facility] Healthcare Address [address] [place] [address] Care Team Providers Care Casing Tier Name Role Phone Folyd Mckinney MD Primary Care Provider [phone] Jarvis Burdick MD Unavailable [phone] Reason for Visit * Auth/Cert Specialty Diagnoses / Procedures Referred By David t Referred To Contact Diagnoses DILATED CARDIOMYOPATHY Procedures NV INSJ/RPLCMT PERM DFB W/TRNSVNS LDS 1/DUAL CHMBR PLACEMENT AUTOMATIC IMPLANTABLE CARDIOVERTER DEFIBRILLATOR/INTERNAL CARDIOVERTER DEFIBRILLATOR; SINGLE CHAMBER Referral ID Status Reason Start Date Expiration Date Visits Re quested Visits Authorized [id number] 1 1 Encounter Details Date Type Department Care Team (Latest Contact Info) Description 12/30/2020 10:06 AM CDT - 12/31/2020 1:56 PM CDT Hospital Encounter [address] [address] Mehran Swann MD [address] [place] [id number] Discharge Disposition: Discharge to home or self care Social History Tobacco Use Types Packs/Day Years Used Date Smoking Tobacco: Former Cigarettes 0.3 30 1 969 - 1999 Cigars Smokeless Tobacco: Never Tobacco Cessation:Counseling Given: [...] on file 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 Problems/Diagnoses: Principal Problem: Coronary artery disease (CAD) excluded Resolved Problems: No resolved hospital problems. DETAILS OF HOSPITAL STAY Presenting Problem/History of Present Illness: This is a 80-year-old man who I evaluated a little less than a year ago with critical and multivessel coronary artery disease and he underwent transcatheter AVR as well as multivessel stenting. Heis known to have a severe cardiomyopathy and wore a LifeVest for several months and now has primary indication for insertion of a transvenous AICD Hospital Course: Following surgical procedure patient was transferred from the recovery room in stable condition. Patient was monitored overnight . Chest xray stable , device follow up done no changes needed for pacemaker. Patient discharge home post op day one. Patient to follow with Dr Swann in [address] Lazar . Active Issues Requiring Follow-up: None Test Results Pending at Discharge: none Operative Procedures Performed: Procedure(s): PLACEMENT AUTOMATIC IMPLANTABLE CARDIOVERTER DEFIBRILLATOR/INTERNAL CARDIOVERTER DEFIBRILLATOR SINGLE CHAMBER Other Procedures: None Pertinent Test Results: Recent Labs Lab Units 12/31/20 0618 12/26/20 1013 WBC K/cumm 7.2 7.8 HEMOGLOBIN g/dL 11.3* 12.3* HEMATOCRIT % 35.6* 37.6* PLATELETS K/cumm 111* 143* Recent Labs Lab Units 12/31/20 1113 12/31/20 0713 12/31/20 0618 12/30/20 1529 12/26/20 1013 SODIUM mmol/L -- -- 138 -- 142 POTASSIUM PLASMA mmol/L -- -- 4.7 -- 5.4* CHLORIDE mmol/L -- -- 102 -- 102 CO2 mmol/L -- -- 27 -- 30 BUN SERUM mg/dL -- -- 21 -- 21 CREATININE mg/dL -- -- 1.10 -- 1.20 GLUCOSE mg/dL -- -- 108 -- 88 POC GLUCOSE MONITOR mg/dL 153 92 -- < > -- CALCIUM mg/dL -- -- 9.1 -- 10.4* < > = values in this interval not displayed. No lab exists for component: TP, TBIL, ALKP Recent Labs Lab Units 12/26/20 1013 APTT sec 36 INR 1.1 XRay; EXAM DESCRIPTION: XR CHEST PA LATERAL 2 VIEWS ?? REASON FOR STUDY: cardiac pacemaker DEFIBRILLATOR placement yesterday. ?? TECHNIQUE: Frontal and lateral radiographic views of the chest acquired. ?? COMPARISON: Chest x-ray 12/30/2020 ?? FINDINGS: ?? HARDWARE/LINES/TUBES: Cardiac device with battery pack in the left upper chest and single lead projecting over the right ventricle, unchanged from yesterday. Unchanged transcatheter aortic valve prosthesis. ?? LUNGS/PLEURA: No pneumothorax. Improved lung aeration. Near complete resolution of prior patchy airspace opacities, with minimal residual lower lung atelectasis bilaterally. No napoleon edema. No pleural effusion. ?? HEART/MEDIASTINUM: Unchanged mild cardiomegaly. Mild pulmonary vascular prominence, stable. ?? BONES: No acute findings. ?? OTHER: No other significant finding. ? IMPRESSION: Unchanged appearance of single lead cardiac device. Marked improvement in lung aeration, with minimal residual bibasilar atelectasis. ? THIS IS AN ELECTRONICALLY VERIFIED FINAL REPORT 12/31/2020 7:56 AM - Electronically signed by Roman Byrne M.D. ?? BC T: ?? Report ID: [id number] Reading Location: [place] [address] Discharge Details Physical Exam at Discharge: Discharge Condition: stable Pulse: 57 Resp: 20 BP: 116/74 Temp: 36.4 ??C (97.5 ??F) Weight: 92.6 kg (204 lb 3.2 oz) Pertinent Exam Findings at Discharge: Physical Exam Constitutional: Appearance: Normal appearance. Cardiovascular: Rate and Rhythm: Normal rate. Pulmonary: Effort: Pulmonary effort is normal. Breath sounds: Normal breath sounds. Musculoskeletal: General: Normal range of motion. Skin: General: Skin is warm and dry. Neurological: General: No focal deficit present. Mental Status: He is alert and oriented to person, place, and time. Psychiatric: Mood and Affect: Mood normal. Incision :some swelling noted at pacemaker site. Mild bruising and pinkness noted. No drainage Discharge Disposition: Code Status at Discharge: full code Discharge Instructions: Call for increase swelling, redness drainage at incision site or for fever. Keep sling on for 2 weeks Discharge Medications: Current Medications TAKE these medications aspirin 81 mg enteric coated tablet Take 81 mg by mouth daily clopidogreL 75 mg tablet Take 75 mg by mouth daily Commonly known as: PLAVIX finasteride 5 mg tablet Take 5 mg by mouth daily Commonly known as: PROSCAR glimepiride 2 mg tablet Take 2 mg by mouth daily before breakfast For: type 2 diabetes mellitus Commonly known as: AMARYL lisinopriL 5 mg tablet Take 2.5 mg by mouth daily Commonly known as: PRINIVIL,ZESTRIL metFORMIN 1,000 mg 24 hr tablet Take 1,000 mg by mouth 2 (two) times a day Commonly known as: FORTAMET metoprolol XL 25 mg extended release tablet Take 12.5 mg by mouth daily Commonly known as: TOPROL-XL pravastatin 40 mg tablet Take 40 mg by mouth nightly Commonly known as: PRAVACHOL tamsulosin 0.4 mg extended release capsule 0.4 mg Commonly known as: FLOMAX ASK your doctor about these medications furosemide 20 mg tablet Take 20 mg by mouth daily Commonly known as: LASIX Ask about: Which instructions should I use? Outpatient Follow-Up: Contact Information for Follow-ups Mehran Swann MD Specialty: Cardiothoracic Surgery, General Surgery, Thoracic Surgery [facility] - [address] [address] Next Steps: Follow up on 01/20/2021 Instructions: at 10:40 am for incision check Floyd Mckinney MD Specialty: Internal Medicine, Pediatrics Relationship: PCP - General [phone] [facility] [id number] Next Steps: Follow up Cosigned by Mehran Swann MD at 12/31/2020 1:29 PM CDT Associated attestation - Mehran Swann MD - 12/31/2020 1:29 PM CDT I have reviewed and agree with the summary as outlined. documented in this encounter Discharge Instructions * Discharge Instructions* Ольга De Santiago CRNFA - 12/31/2020 11:42 AM CDT Pacemaker instructions: CTS Call 911 for any of the follow : 1. You have any of the following signs of a heart attack: Squeezing , pressure or pain in you chest that last longer than 5 minutes or returns Discomfort or pain in you back, neck, jaw, stomach, or arm Trouble breathing Nausea or Vomiting Lightheadedness or sudden cold sweat, especially with chest pain or trouble breathing. 2. You feel light headed or Short of breath and having chest pain 3. You cough up blood. Call Surgeon [phone] if: 1. Your arm or legs feels warm , tender and painful. It may look swollen and red 2. You feel weak , dizzy, or faint 3. Your pulse is lower or higher than you healthcare provider said it should be. 4. You have fever or Chills 5. Your stiches come apart 6. Your wound is red, swollen, or has drainage Care for your incision: You may shower daily with soap and water and pat dry. Do Not peel of the glue on the incision. Check you incision every day for redness, swelling or drainage. Activity: Do not lift anything heavier than 3 pounds with the arm closest to your pacemaker. Do Notlift the arm over your head for two weeks. Do not do vigorous activity, this include contact sports and some types of exercise. These activities can damage your pacemaker or cause the wires to move. Ask your healthcare provider what activities are safe for you to do. Pacemaker safety; 1.Tell all healthcare providers that you have a pacemaker. MRI machines and certain equipment can affect how your pacemaker works. 2. Limit or avoid close contact with certain electrical devices. Examples include cell phones, Pods, microwave ovens and generators. These devices can prevent your pacemaker from Working correctly. Stand at least 2 feet from generator. Do not put your cell phone or ipod in the chest pocket closest to your pacemaker. Use the arm opposite your pacemaker to And use your cell phone . 3. Tell airport security that you have a pacemaker before you go through the metal detectors. Metaldetectors my beep because of the metal in your pacemaker. Step away from the Machine if you feel dizzy or your heart rate increases. Ask the security agents not to hold a security wand over you pacemaker for more than a few seconds. Your pacemaker Function or programming may be affected by wand. 4. Wear medical alert Identification . Wear medical alert jewelry or carry a card that says you have a pacemaker. What you need to know about your pacemaker: 1. Your Rate Marker will check you pacemaker about every three months. Some checks may be done over the telephone, to make sure the pacemaker is working correctly. You may also need regular EKG to check the electrical activity of your heart. 2. Your pacemaker generator will need replaced. The battery may need replaced in 6 to 7 yrs or longer. If you leads become dislodged or if there is an infection they may need To be replaced. * Attachments The following attachments cannot be sent through Care Everywhere. * Implantable Cardioverter Defibrillator (Discharge Care) (Persian) documented in this encounter Medications at Time of Discharge acetaminophen (TYLENOL) 325 mg tabletIndication s:Pain Take 2 tablets (650 mg total) by mouth every 4 (four) hours as needed for pain 90 tablet 1 12/31/2020 aspirin 81 mg enteric coated tablet Take 81 mg by mouth daily clopidogreL (PLAVIX) 75 mg tablet Take 1 tablet (75 mg total) by mouth daily 30 tablet 1 01/01/2021 finasteride (PROSCAR) 5 mg tablet Take 5 mg by mouth daily furosemide (LASIX) 20 mg tablet Take 20 mg by mouth daily 03/19/2020 glimepiride (AMARYL) 2 mg tabletIndication s:type 2 diabetes mellitus Take 2 mg by mouth daily before breakfast lisinopriL (PRINIVIL,ZESTRI L) 5 mg tablet Take 2.5 mg by mouth daily 10/03/2020 metFORMIN (FORTAMET) 1,000 mg 24 hr tablet Take 1,000 mg by mouth 2 (two) times a day metoprolol XL (TOPROL-XL) 25 mg extended release tablet Take 12.5 mg by mouth daily pravastatin (PRAVACHOL) 40 mg tablet Take 40 mg by mouth nightly tamsulosin (FLOMAX) 0.4 mg extended release capsule 0.4 mg documented as of this encounter Ordered Prescriptions Prescription Sig Dispense Quantity Refills Last Filled Start Date End Date acetaminophen (TYLENOL) 325 mg tabletIndications: Pain Take 2 tablets (650 mg total) by mouth every 4 (four) hours as needed for pain 90 tablet 1 12/31/2020 clopidogreL (PLAVIX) 75 mg tablet Take 1 tablet (75 mg total) by mouth daily 30 tablet 1 01/01/2021 documented in this encounter Discharge Disposition Disposition Code Departure Means Destination Discharge to home or self care documented in this encounter Progress Notes * Beny Jose - 12/31/2020 10:31 AM CDT Pt appreciated the visit but he did not indicate a desire for spiritual support. Stated he had already said his prayers. documented in this encounter H&P Notes * Mehran Swann MD - 12/30/2020 12:11 PM CDT No changes. Plan of Care : Based on the above findings, I consider Padmini Amador to be an acceptable risk for : Procedure(s): PLACEMENT AUTOMATIC IMPLANTABLE CARDIOVERTER DEFIBRILLATOR/INTERNAL CARDIOVERTER DEFIBRILLATOR SINGLE CHAMBER Source Note - Mehran Swann MD - 12/23/2020 12:00 AM CDT Requesting Physician Dr. Jarvis Grant of Cardiology. Chief Complaint Fatigue. History This is a 80-year-old man who I evaluated a little less than a year ago with critical and multivessel coronary artery disease and he underwent transcatheter AVR as well as multivessel stenting. Heis known to have a severe cardiomyopathy and wore a LifeVest for several months and now has primary indication for insertion of a transvenous AICD. Past Medical History Hypertension, diabetes, moderate obesity, hypercholesterolemia, prostatism. Past Surgical History Cholecystectomy, back surgery, and the aforementioned cardiac surgery and stenting. He has no known drug allergies. Meds 1. He is on baby aspirin. 2. Glimepiride. 3. Atorvastatin, switched to pravastatin. 4. Lisinopril. 5. Lasix. 6. Tamsulosin. 7. Metoprolol. 8. Metformin. 9. Plavix. Family History Positive for heart disease. Social History Nonsmoker. Nonuser of alcohol. Review of Systems Fatigue, anxiety, depression, joint pains. Negative for additional cardiovascular, respiratory, neurologic, musculoskeletal, gastroenterologic, or peripheral vascular issues. Physical Examination Shows him to be awake and alert, no acute distress, 190 pounds, 71 inches, afebrile, respirations 20, pulse 60s and currently regular and a blood pressure about 120/80. Head, Eyes, Ears, Nose, and Throat: Grossly normal. Neck: Supple without JVD, bruits, or adenopathy. Lungs: Clear to auscultation bilaterally. Cardiac: Regular rate and rhythm with no appreciable murmurs. Abdomen: Moderately obese but soft and benign. Extremities: Warm without cyanosis, clubbing, or edema. Pedal pulses are preserved. Neurological: Grossly nonfocal on exam. Data As above with documentation by echocardiography of good seating of his transcatheter AVR and the re-documentation of his ejection fraction of about 25% to 30%. No other pertinent data. Impression Severe cardiomyopathy, status post transcatheter aortic valve replacement and multivessel stenting of the coronary arteries. Previous LifeVest. Other medical problems outlined above. Plan I have discussed with the patient the indications for and technical aspects of insertion of a single-chamber transvenous AICD. I furthermore discussed the incumbent risks, benefits, alternatives, risks including but not being limited to bleeding, need for blood products, need for exploration for bleeding, infection, cardiac arrhythmias, cardiac trauma, pneumothorax, lead migration, need for ventilatory or prolonged ventilatory assistance, and . He voiced understanding and consent. We will discontinue his Plavix as of today and plan surgery middle of the week next week. Thank you for allowing us to participate in the care of this patient. Job ID/VF Job ID: [id number] * Mehran Swann MD - 12/23/2020 12:00 AM CDT Requesting Physician Dr. Jarvis Grant of Cardiology. Chief Complaint Fatigue. History This is a 80-year-old man who I evaluated a little less than a year ago with critical and multivessel coronary artery disease and he underwent transcatheter AVR as well as multivessel stenting. Heis known to have a severe cardiomyopathy and wore a LifeVest for several months and now has primary indication for insertion of a transvenous AICD. Past Medical History Hypertension, diabetes, moderate obesity, hypercholesterolemia, prostatism. Past Surgical History Cholecystectomy, back surgery, and the aforementioned cardiac surgery and stenting. He has no known drug allergies. Meds 1. He is on baby aspirin. 2. Glimepiride. 3. Atorvastatin, switched to pravastatin. 4. Lisinopril. 5. Lasix. 6. Tamsulosin. 7. Metoprolol. 8. Metformin. 9. Plavix. Family History Positive for heart disease. Social History Nonsmoker. Nonuser of alcohol. Review of Systems Fatigue, anxiety, depression, joint pains. Negative for additional cardiovascular, respiratory, neurologic, musculoskeletal, gastroenterologic, or peripheral vascular issues. Physical Examination Shows him to be awake and alert, no acute distress, 190 pounds, 71 inches, afebrile, respirations 20, pulse 60s and currently regular and a blood pressure about 120/80. Head, Eyes, Ears, Nose, and Throat: Grossly normal. Neck: Supple without JVD, bruits, or adenopathy. Lungs: Clear to auscultation bilaterally. Cardiac: Regular rate and rhythm with no appreciable murmurs. Abdomen: Moderately obese but soft and benign. Extremities: Warm without cyanosis, clubbing, or edema. Pedal pulses are preserved. Neurological: Grossly nonfocal on exam. Data As above with documentation by echocardiography of good seating of his transcatheter AVR and the re-documentation of his ejection fraction of about 25% to 30%. No other pertinent data. Impression Severe cardiomyopathy, status post transcatheter aortic valve replacement and multivessel stenting of the coronary arteries. Previous LifeVest. Other medical problems outlined above. Plan I have discussed with the patient the indications for and technical aspects of insertion of a single-chamber transvenous AICD. I furthermore discussed the incumbent risks, benefits, alternatives, risks including but not being limited to bleeding, need for blood products, need for exploration for bleeding, infection, cardiac arrhythmias, cardiac trauma, pneumothorax, lead migration, need for ventilatory or prolonged ventilatory assistance, and . He voiced understanding and consent. We will discontinue his Plavix as of today and plan surgery middle of the week next week. Thank you for allowing us to participate in the care of this patient. Job ID/VF Job ID: [id number] documented in this encounter Miscellaneous Notes * Plan of Care - Hakeem Collins RN - 12/31/2020 12:38 PM CDT Problem: Facility Isolation Psychosocial Wellbeing Description: Resident at risk for psychosocial wellbeing concern related to medical and visitation restrictions secondary to COVID-19 Goal: Resident will not show a decline in psychosocial wellbeing or experience adverse effects through next review Description: 1. Educate resident, family, resident representatives, staff and visitors of COVID-19 signs and symptoms and precautions 2. Provide emotional support and allow resident to express feelings, fears, and concerns 3. Observe for psychosocial and mental status changes, document and update school social worker and MD as needed 4. Provide in room activities of choice if indicated 5. Provide alternative methods of communication with family/visitors 6. Assure resident, family, and resident representatives facility is taking precautions to keep them safe 7. Update resident, family, and resident representatives as needed 12/31/2020 1238 by Hakeem Collins RN Outcome: Completed 12/31/2020852 by Hakeem Collins RN Outcome: Progressing Problem: COVID-19 Prevention and Monitoring Description: Resident requires monitoring and prevention as they relate to COVID-19 Goal: Resident will show no signs or symptoms of COVID-19 Description: 1. Monitor frequently for potential symptoms including fever and respiratory symptoms 2. Educate resident, family, resident representatives, staff and visitors of COVID-19 signs and symptoms and precautions 3. Remind residents to report if they feel feverish or have symptoms of respiratory infection 4. Reinforce no visitor policy and non-essential health care personnel policy, except for certain compassionate care situations 5. When visitors are necessary and meet exception to no visitor policy, limit to a specified room, encourage social distancing with no handshakes, physical contact, and remaining 6 feet apart 6. Update resident, family, and resident representatives as needed 12/31/2020 1238 by Hakeem Collins RN Outcome: Completed 12/31/2020852 by Hakeem Collins RN Outcome: Progressing Problem: Health Behavior: Goal: Understanding of discharge needs will improve 12/31/2020 1238 by Hakeem Collins RN Outcome: Completed 12/31/2020852 by Hakeem Collins RN Outcome: Progressing Problem: Lack of Knowledge: Goal: Ability to state ways to decrease the risk of falls will improve 12/31/2020 1238 by Hakeem Collins RN Outcome: Completed 12/31/2020852 by Hakeem Collins RN Outcome: Progressing Problem: Safety: Goal: Will remain free from falls 12/31/2020 1238 by Hakeem Collins RN Outcome: Completed 12/31/2020852 by Hakeem Collins RN Outcome: Progressing Goal: Will remain free from injury from falls 12/31/2020 1238 by Hakeem Collins RN Outcome: Completed 12/31/2020 0853 by Hakeem Collins RN Outcome: Progressing Goal: Will remain free from falls and injury in home environment 12/31/2020 1238 by Hakeem Collins RN Outcome: Completed 12/31/2020 0853 by Hakeem Collins RN Outcome: Progressing Problem: Skin Integrity: Goal: Complications related to the disease process, condition or treatment will be avoided or minimized 12/31/2020 1238 by Hakeem Collins RN Outcome: Completed 12/31/2020 0853 by Hakeem Collins RN Outcome: Progressing Goals: Clinical Goals for the Shift: No Pain Summary: * Plan of Care - Hakeem Collins RN - 12/31/2020 8:53 AM CDT Problem: Facility Isolation Psychosocial Wellbeing Description: Resident at risk for psychosocial wellbeing concern related to medical and visitation restrictions secondary to COVID-19 Goal: Resident will not show a decline in psychosocial wellbeing or experience adverse effects through next review Description: 1. Educate resident, family, resident representatives, staff and visitors of COVID-19 signs and symptoms and precautions 2. Provide emotional support and allow resident to express feelings, fears, and concerns 3. Observe for psychosocial and mental status changes, document and update school social worker and MD as needed 4. Provide in room activities of choice if indicated 5. Provide alternative methods of communication with family/visitors 6. Assure resident, family, and resident representatives facility is taking precautions to keep them safe 7. Update resident, family, and resident representatives as needed Outcome: Progressing Problem: COVID-19 Prevention and Monitoring Description: Resident requires monitoring and prevention as they relate to COVID-19 Goal: Resident will show no signs or symptoms of COVID-19 Description: 1. Monitor frequently for potential symptoms including fever and respiratory symptoms 2. Educate resident, family, resident representatives, staff and visitors of COVID-19 signs and symptoms and precautions 3. Remind residents to report if they feel feverish or have symptoms of respiratory infection 4. Reinforce no visitor policy and non-essential health care personnel policy, except for certain compassionate care situations 5. When visitors are necessary and meet exception to no visitor policy, limit to a specified room, encourage social distancing with no handshakes, physical contact, and remaining 6 feet apart 6. Update resident, family, and resident representatives as needed Outcome: Progressing Problem: Health Behavior: Goal: Understanding of discharge needs will improve Outcome: Progressing Problem: Lack of Knowledge: Goal: Ability to state ways to decrease the risk of falls will improve Outcome: Progressing Problem: Safety: Goal: Will remain free from falls Outcome: Progressing Goal: Will remain free from injury from falls Outcome: Progressing Goal: Will remain free from falls and injury in home environment Outcome: Progressing Problem: Skin Integrity: Goal: Complications related to the disease process, condition or treatment will be avoided or minimized Outcome: Progressing Goals: Clinical Goals for the Shift: No Pain Summary: * Brief Op Note - Mehran Swann MD - 12/30/2020 12:45 PM CDT Operative Progress Note Surgical Team: Surgeon(s) and Role: * Mehran Swann MD - Primary Anesthesiologist: Cali Barriga MD CLINICAL PATHOLOGIST: Vanna Glasgow CRNA Paper Guillotine Operator: Lisa Diehl RN Scrub: Ashly Winslow CRNFA Facilities Maintenance Worker: [facility] DATE OF SURGERY : 12/30/2020 Preoperative Diagnosis: 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 Ischemic and dilated. Status post LifeVest for several months. Prior Plavix use discontinued about a week ago. Postoperative Diagnosis: The same. Procedure(s): Procedure(s) (LRB): PLACEMENT AUTOMATIC IMPLANTABLE CARDIOVERTER DEFIBRILLATOR/INTERNAL CARDIOVERTER DEFIBRILLATOR SINGLE CHAMBER (N/A) Operative Findings: Successful implantation. See thresholds in chart. Estimated Blood Loss: 5cc. Intraoperative Fluids: See anesthesia record. Specimens: No specimen collected in procedure Implants: Implant Name Type Inv. Item Serial No. Metal Sprayer Lot No. LRB No. Used [employer] CARDIAC RHYTHM MGMT [id number] SPRINT QUATTRO SECURE 62CM TRIPOLAR SCREW IN EXTENDABLE - [id number] - [id number] Other - see comments MEDTRONIC CARDIAC RHYTHM MGMT [id number] Sprint Quattro Secure 62cm Tripolar Screw In Extendable [id number] Medtronic Inc N/A 1 Implanted MED[employer]IC INC [id number] PACEMAKER CARDIAC COBALT VR [id number] - [id number] - [id number] MEDTRONIC INC [id number] PACEMAKER CARDIAC COBALT VR [id number] Medtronic Inc N/A 1 Implanted Blood/Blood Products Transfused: 0 mls Complications: None Condition on Discharge from the operating room was stable Mehran Swann MD Date: 12/30/2020 Time: 2:58 PM No Resident involved on case * Op Note - Mehran Swann MD - 12/30/2020 12:00 AM CDT Preoperative Diagnoses Severe ischemic and dilated cardiomyopathy, status post transcatheter AVR and percutaneous intervention to coronary arteries. Prior use of LifeVest. Prior Plavix use, discontinued about a week ago. Postoperative Diagnoses Severe ischemic and dilated cardiomyopathy, status post transcatheter AVR and percutaneous intervention to coronary arteries. Prior use of LifeVest. Prior Plavix use, discontinued about a week ago. Procedures Insertion of single-chamber AICD which is Medtronic generator [id number] with serial number [id number]. The lead is a Medtronic 62-cm lead with serial number [id number] with threshold of 1 mV and impedance of 323 ohms and an R-wave sensing of 15.4 mV. Surgeon Mehran Swann MD. Mva Still Operator DARRELL Kolb. Anesthesia General with an LMA by Dr. Barriga. Estimated Blood Loss 5 mL. Fluid Utilized 500 mL crystalloid. Specimens None. Drains None. History This is a 80-year-old man who has known severe cardiomyopathy that wore a Life Vest for quite some time. It is a combination of ischemic and dilated, and he is status post transcatheter AVR and coronary stenting over the last year. He presents with ongoing symptoms of shortness of breath, and for primary prevention purposes he is referred for consideration of an ICD, given his ejection fraction of about 30%. I discussed with the patient the indications for and technical aspects of the aforementioned, and he consented. This was done electively after his Plavix effects were allowed to subside. Description of Procedure The patient was brought to the operating room and placed supine on the OR table. General anesthesiawas induced and an LMA was placed, and the area to be incised of the left superior pectoral region was prepped and draped in the usual sterile fashion. The patient was placed in Trendelenburg position. The entire region was anesthetized with 0.5% Marcaine. This included the clavicle. I then accessed the left subclavian vein initially with a 21-gauge needle followed by an introducer needle and passed a guidewire. Fluoroscopy was utilized throughout. The tract was dilated and then an introducer was placed, and the inner cannula and guidewire were removed. The ventricular lead was secured in theapex of the right ventricle. It was screwed in. It had the aforementioned thresholds. The stylet was removed. The sheath was removed. Non migration was documented with fluoroscopy. I turned my attention to the pocket formation and reanesthetized the region and made a small skin incision with scalpel and cautery. Blunt and cautery dissection allowed me to fashion a pocket and then the flange of the lead was secured to the muscular fascia. The patient was taken out of Trendelenburg position. There was some back bleeding from the insertion site, and a pursestring silk suture was utilized. More of the lead was threaded into obtain an elbow and keep the lead from being taut inthe ventricle. Then, the flange was re-secured to the muscular fascia and the generator was placed in the pocket, and the incision was closed in layers with absorbable suture followed by Dermabond. The patient's arm was placed in a sling. At the end of the procedure, all needle, sponge, instrument counts were correct. The patient tolerated the procedure well, was awoken and the LMA removed in theoperating room, and he was brought to the recovery room in satisfactory condition. I performed this operation. Mr. Regis Noble assisted me. Completion fluoroscopy revealed no pneumothorax and non migration. Final chest x-ray will be obtained in the recovery area. Job ID/VF Job ID: [id number] * Pre-Procedure Instructions - Ashtyn Gonzalez RN - 12/26/2020 10:49 AM CDT We are pleased that you and your doctor have chosen [facility] for your surgery. We hope that the following information will help make your visit a pleasant one. Surgery Date: 12/30/2020 Arrive at 10:30 at Outpatient Surgery. Before your surgery: ?? Notify your doctor of ANY change in your health such as a cold, sore throat, fever, any infection or a change in the problem for which you are having your surgery. ?? Follow any instructions given to you by your doctor or surgeon. Check with your doctor if you need to STOP taking: ?? Aspirin (ordered by your doctor)- continue aspirin per MD ?? Discontinue Plavix 12/23 One week before surgery STOP taking: ?? All herbal supplements ?? Aleve, Advil, Motrin, Ibuprofen, or other similar medications (Tylenol is okay). 24 hours before your surgery: ?? No smoking or alcoholic drinks. ?? Stop taking your: Metformin. Night before your surgery: ?? Do not eat or drink anything after midnight. ?? Follow surgeon's instructions for anti-bacterial shower night before and morning of surgery. Day of surgery: ?? Do not swallow any water when you brush your teeth. ?? Do not take your AM insulin dose or any diabetic medicines ?? ONLY take these pills with a tiny sip of water. Pre-Surgery Instructions: Medication Instructions ? ? Take Metoprolol & Finesteride with sip of water AM of surgery ?? Use no make-up, nail gambian, lotions, oils or powders on your skin. ?? Wear comfortable clothes that will not be tight in the area of your surgery. ?? Leave all valuables and jewelry (including all body piercing jewelry) at home. ?? Please bring your a photo ID and insurance cards with you. ?? Check in at the Registration Desk. After your Outpatient Surgery: ?? You must have a responsible adult to drive you home, you will not be allowed to drive or take a cab home. ?? We recommend you have someone stay with you for 24 hours after your surgery. What to bring if you are spending the night with us: ?? Bring toiletry items such as: robe, slippers, toothbrush, toothpaste, brush or comb. ?? Bring contact lens, hearing aids, glass cases and denture container if you use any of these items. ?? The hospital will provide you with a gown. Questions or concerns: ?? If you have any questions or concerns regarding your procedure, contact your surgeon as soon as possible. ?? If you have questions regarding your Pre-Admission Testing, please call us. We can be reached atthe number posted at the top of the page. documented in this encounter Plan of Treatment Not on file documented as of this encounter Procedures Procedure Name Priority Date/Time Associated Diagnosis Comments POCT GLUCOSE DEVICE Routine 12/31/2020 11:13 AM CDT XR CHEST PA LATERAL 2 VIEWS IP Routine 12/31/2020 7:46 AM CDT POCT GLUCOSE DEVICE Routine 12/31/2020 7 :13 AM CDT EGFR Routine 12/31/2020 6:18 AM CDT DIFFERENTIAL AUTO Routine 12/31/2020 6:1 8 AM CDT CBC WITH AUTO DIFFERENTIAL Routine 12/31/2020 6:18 AM CDT BASIC METABOLIC PANEL Routine 12/31/2020 6:18 AM CDT POCT GLUCOSE DEVICE Routine 12/30/2020 7 :25 PM CDT POCT GLUCOSE DEVICE Routine 12/30/2020 4 :43 PM CDT POCT GLUCOSE DEVICE Routine 12/30/2020 3 :29 PM CDT XR CHEST 1 VIEW ED Urgent/IP Urgent 12/30/2020 3:18 PM CDT FL FLUOROSCOPY < 1 HOUR IP Routine 12/30/2020 2:51 PM CDT PLACEMENT AUTOMATIC IMPLANTABLE CARDIOVERTER DEFIBRILLATOR/GOLF CLUB MAKER AL CARDIOVERTER DEFIBRILLATOR 12/30/2020 1:01 PM CDT DILATED CARDIOMYOPATHY POC BLOOD GAS AND CHEMISTRIES, VENOUS Routine 12/30/2020 11:32 AM CDT documented in this encounter Results * POCT glucose (12/31/2020 11:13 AM CDT) Glucose, POC 153 70 - 199 mg/dL [facility] Glucose comment 1 Use This Result [facility] Blood specimen (specimen) 12/31/2020 11:13 AM CDT 12/31/2020 11:13 AM CDT Mehran Swann MD LAB POCT ORDERABLES - DEVICE F inal Result [facility] [address] [facility] [place] [address] * X-ray chest 2 views (12/31/2020 7:46 AM CDT) Anatomical Region Laterality Modality Body, Chest N/A Computed Radiogr aphy 12/31/2020 7:53 AM CDT Narrative 12/31/2020 7:56 AM CDT EXAM DESCRIPTION: ?? XR CHEST PA LATERAL 2 VIEWS REASON FOR STUDY: ?? cardiac pacemaker ?? DEFIBRILLATOR placement yesterday. ?? TECHNIQUE: ?? Frontal and lateral radiographic views of the chest acquired. COMPARISON: ?? Chest x-ray 12/30/2020 FINDINGS: HARDWARE/LINES/TUBES: Cardiac device with battery pack in the left upper chest and single lead projecting over the right ventricle, unchanged from yesterday. Unchanged transcatheter aortic valve prosthesis. LUNGS/PLEURA: ??No pneumothorax. ??Improved lung aeration. ??Near complete resolution of prior patchy airspace opacities, with minimal residual lower lung atelectasis bilaterally. ??No napoleon edema. ??No pleural effusion. HEART/MEDIASTINUM: ??Unchanged mild cardiomegaly. ??Mild pulmonary vascular prominence, stable. BONES: ??No acute findings. OTHER: ??No other significant finding. IMPRESSION: ?? Unchanged appearance of single lead cardiac device. ??Marked improvement in lung aeration, with minimal residual bibasilar atelectasis. THIS IS AN ELECTRONICALLY VERIFIED FINAL REPORT 12/31/2020 7:56 AM - Electronically signed by Roman Byrne M.D. BC D: ??12/31/2020 7:56 AM T: Report ID: [id number] Reading Location: ??[id number] Procedure Note Roman Byrne MD - 12/31/2020 EXAM DESCRIPTION: XR CHEST PA LATERAL 2 VIEWS REASON FOR STUDY: cardiac pacemaker DEFIBRILLATOR placement yesterday. TECHNIQUE: Frontal and lateral radiographic views of the chestacquired. COMPARISON: Chest x-ray 12/30/2020 FINDINGS: HARDWARE/LINES/TUBES: Cardiac device with battery pack in the left upperchest and single lead projecting over the right ventricle, unchanged fromyesterday. Unchanged transcatheter aortic valve prosthesis. LUNGS/PLEURA: No pneumothorax. Improved lung aeration. Near complete resolution of prior patchy airspace opacities, with minimal residual lower lung atelectasis bilaterally. No napoleon edema. No pleural effusion. HEART/MEDIASTINUM: Unchanged mild cardiomegaly. Mild pulmonary vascular prominence, stable. BONES: No acute findings. OTHER: No other significant finding. IMPRESSION: Unchanged appearance of single lead cardiac device. Marked improvement in lung aeration, with minimal residual bibasilaratelectasis. THIS IS AN ELECTRONICALLY VERIFIED FINAL REPORT 12/31/2020 7:56 AM - Electronically signed by Roman Byrne M.D. BC T: Report ID: [id number] Reading Location: [id number] Mehran Swann MD IMG XR PROCEDURES Final Result * POCT glucose (12/31/2020 7:13 AM CDT) Glucose, POC 92 70 - 199 mg/dL [facility] Glucose comment 1 Use This Result [facility] Blood specimen (specimen) 12/31/2020 7:13 AM CDT 12/31/2020 7:13 AM CDT us Mehran Swann MD LAB POCT ORDERABLES - DEVICE F inal Result Performing Organization Address [facility] de Phone Number [facility] [address] [facility] [place] [address] * eGFR (12/31/2020 6:18 AM CDT) [facility] eGFR 64 mL/min/1.[address] [facility] Comment: Interpretive Data Reference Interval Normal ?>/= 90 mL/min/1.73m2 Mildly decreased* ? 60 - 89 mL/min/1.73m2 Mildly to moderately decreased ?45 - 59 mL/min/1.73m2 Moderately to severely decreased ??30 - 44 mL/min/1.73m2 Severely decreased ?15 - 29 mL/min/1.73m2 Kidney Failure ?< 15 ??mL/min/1.73m2 *Relative to young adult level Estimated glomerular filtration rate is determined by the CKD-EPI equation recommended by the National Kidney Foundation (KDIGO 2012 Clinical Practice Guideline for the Evaluation and Management of Chronic Kidney Disease. Kidney Intnl Suppl May 2012;3:1). The CKD-EPI equation should not be used for patients with unstable renal function and has not been validated in children and those over 70. Current interpretive data was last reviewed 2020 Blood specimen (specimen) 12/31/2020 6:18 AM CDT 12/31/2020 6:52 AM CDT us Mehran Swann MD LAB BLOOD ORDERABLES Final Res ult Performing Organization Address [facility]/ZIP Co de Phone Number [facility] [address] [facility] Department [place] [address] * Differential, auto (12/31/2020 6:18 AM CDT) Neutrophil abs 5.3 1.7 - 6.5 K/cumm [facility] Imm gran abs 0.0 0.0 - 0.1 K/cumm [facility] Lymphocyte abs 0.9 0.8 - 3.3 K/cumm [facility] Monocyte abs 0.8 0.2 - 0.8 K/cumm [facility] Eosinophil abs 0.1 0.0 - 0.5 K/cumm [facility] Basophil abs 0.0 0.0 - 0.1 K/cumm [facility] Neutrophil pct 74.1 % [facility] Comment: Interpretive Data Percent cell count reference ranges are not reported, since discordance with absolute values may lead to misinterpretation of CBC data. Current Interpretive Data was last revised on 2017. Imm gran pct 0.4 % [facility] Comment: Interpretive Data Percent cell count reference ranges are not reported, since discordance with absolute values may lead to misinterpretation of CBC data. Current Interpretive Data was last revised on 2017. Lymphocyte pct 12.8 % [facility] Comment: Interpretive Data Percent cell count reference ranges are not reported, since discordance with absolute values may lead to misinterpretation of CBC data. Current Interpretive Data was last revised on 2017. Monocyte pct 11.0 % [facility] Comment: Interpretive Data Percent cell count reference ranges are not reported, since discordance with absolute values may lead to misinterpretation of CBC data. Current Interpretive Data was last revised on 2017. Eosinophil pct 1.3 % [facility] Comment: Interpretive Data Percent cell count reference ranges are not reported, since discordance with absolute values may lead to misinterpretation of CBC data. Current Interpretive Data was last revised on 2017. Basophil pct 0.4 % [facility] Comment: Interpretive Data Percent cell count reference ranges are not reported, since discordance with absolute values may lead to misinterpretation of CBC data. Current Interpretive Data was last revised on 2017. Blood specimen (specimen) 12/31/2020 6:18 AM CDT 12/31/2020 6:53 AM CDT Mehran Swann MD LAB BLOOD ORDERABLES Final Res ult [facility] [address] [facility] [place] [address] * Basic metabolic panel (12/31/2020 6:18 AM CDT) [facility] Sodium 138 135 - 145 mmol/L [facility] Potassium, pl 4.7 3.3 - 4.9 mmol/L [facility] Chloride 102 97 - 110 mmol/L [facility] CO2 27 22 - 32 mmol/L [facility] Anion gap 9 2 - 15 mmol/L [facility] BUN 21 8 - 25 mg/dL [facility] Creatinine 1.10 0.80 - 1.30 mg/dL [facility] Glucose 108 70 - 199 mg/dL [facility] Comment: Interpretive Data Fasting glucose >/= 126 mg/dl is diagnostic for diabetes. ?? Fasting is defined as no caloric intake for at least 8 hours. Fasting glucose between 100 mg/dl to 125 mg/dl is diagnostic of prediabetes. In a patient with classic symptoms of hyperglycemia or hyperglycemic crisis, a random glucose >/= 200 mg/dl is diagnostic for diabetes. In the absence of unequivocal hyperglycemia, results should be confirmed by repeat testing. The classification and Diagnosis of Diabetes Diabetes Care 2017;40 (Suppl. 1):S11. Current interpretive data was last revised 2017. Calcium 9.1 8.5 - 10.3 mg/dL [facility] Blood specimen (specimen) 12/31/2020 6:18 AM CDT 12/31/2020 6:52 AM CDT Mehran Swann MD LAB BLOOD ORDERABLES Final Res ult Performing Organization Address City/[facility]/ZIP Co de Phone Number JULIO [address] [facility] [place] [address] * (ABNORMAL) CBC with auto differential (12/31/2020 6:18 AM CDT) [facility] WBC 7.2 3.8 - 9.9 K/cumm [facility] Hgb 11.3(L) 13.0 - 17.5 g/dL [facility] Hct 35.6(L) 38.9 - 50.3 % [facility] Plt 111(L) 150 - 400 K/cumm [facility] MPV 12.1 9.1 - 12.3 fL [facility] RBC 3.76(L) 4.30 - 5.80 M/cumm [facility] MCV 94.7 81.3 - 96.4 fL [facility] MCH 30.1 27.1 - 33.3 pg [facility] MCHC 31.7(L) 32.3 - 35.7 g/dL [facility] RDW CV 14.6 11.1 - 14.9 % [facility] RDW SD 50.1(H) 35.7 - 48.1 fL [facility] NRBC abs 0.00 0.00 - 0.01 K/cumm [facility] Blood specimen (specimen) 12/31/2020 6:18 AM CDT 12/31/2020 6:53 AM CDT Mehran Swann MD LAB BLOOD ORDERABLES Final Res ult Performing Organization Address City/[facility]/ZIP Co de Phone Number [address] [employer] [place] [address] * POCT glucose (12/30/2020 7:25 PM CDT) [facility] Glucose, POC 189 70 - 199 mg/dL [facility] Glucose comment 1 Use This Result [facility] Blood specimen (specimen) 12/30/2020 7:25 PM CDT 12/30/2020 7:25 PM CDT Mehran Swann MD LAB POCT ORDERABLES - DEVICE F inal Result Performing Organization Address City/[facility] Co de Phone Number [address] [employer] [place] [address] * POCT glucose (12/30/2020 4:43 PM CDT) Glucose, POC 134 70 - 199 mg/dL [facility] Glucose comment 1 Use This Result [facility] Glucose comment 2 Will Notify Nurse [facility] Blood specimen (specimen) 12/30/2020 4:43 PM CDT 12/30/2020 4:43 PM CDT Mehran Swann MD LAB POCT ORDERABLES - DEVICE F inal Result Performing Organization Address [facility] Co de Phone Number SAMANTHA[address] [place] [address] * POCT glucose (12/30/2020 3:29 PM CDT) Glucose, POC 132 70 - 199 mg/dL [facility] Glucose comment 1 Use This Result [facility] Blood specimen (specimen) 12/30/2020 3:29 PM CDT 12/30/2020 3:29 PM CDT Mehran Swann MD LAB POCT ORDERABLES - DEVICE F inal Result Performing Organization Address [facility] de Phone Number [address] [place] [address] * X-ray chest 1 view (Portable) (12/30/2020 3:18 PM CDT) Anatomical Region Laterality Modality Body, Chest N/A Computed Radiogr aphy 12/30/2020 3:22 PM CDT Narrative 12/30/2020 3:23 PM CDT EXAM DESCRIPTION: ?? XR CHEST 1 VIEW REASON FOR STUDY: ?? cardiac pacemaker ?? TECHNIQUE: ?? Frontal radiographic view of the chest acquired. COMPARISON: ?? 12/26/2020 FINDINGS: There is cardiomegaly. ??There is mild prominence of pulmonary vasculature. ?? Aortic valve prosthesis is again noted. ??There is interval placement of a single lead left-sided cardiac device with its lead along the inferior cardiac border. ??There are patchy bilateral perihilar and bibasilar airspace opacities. ??There is no definite evidence of pleural effusion. ??There is no definite evidence of a pneumothorax. The osseous structures are acutely grossly stable. IMPRESSION: ?? 1. ??Interval placement of single lead left-sided cardiac device as described above. ??No definite evidence of a pneumothorax. 2. ??Cardiomegaly with mild prominence of pulmonary vasculature. 3. ??Patchy bilateral perihilar and bibasilar airspace opacities, which may be related to subsegmental atelectasis/scarring and or mild pulmonary edema, however superimposed airspace disease cannot be entirely excluded. THIS IS AN ELECTRONICALLY VERIFIED FINAL REPORT 12/30/2020 3:23 PM - Electronically signed by Rodriguez Parisi D.O. Rodriguez Parisi D.O. PS D: ??12/30/2020 3:23 PM T: Report ID: [id number] Reading Location: ??[id number] Procedure Note Rodriguez Parisi, DO - 12/30/2020 EXAM DESCRIPTION: XR CHEST 1 VIEW REASON FOR STUDY: cardiac pacemaker TECHNIQUE: Frontal radiographic view of the chest acquired. COMPARISON: 12/26/2020 FINDINGS: There is cardiomegaly. There is mild prominence of pulmonary vasculature. Aortic valve prosthesis is again noted. There is interval placement of a single lead left-sided cardiac device with its lead along the inferiorcardiac border. There are patchy bilateral perihilar and bibasilar airspace opacities. There is no definite evidence of pleural effusion. There isno definite evidence of a pneumothorax. The osseous structures are acutely grossly stable. IMPRESSION: 1. Interval placement of single lead left-sided cardiac device asdescribed above. No definite evidence of a pneumothorax. 2. Cardiomegaly with mild prominence of pulmonary vasculature. 3. Patchy bilateral perihilar and bibasilar airspace opacities, which maybe related to subsegmental atelectasis/scarring and or mild pulmonary edema, however superimposed airspace disease cannot be entirely excluded. THIS IS AN ELECTRONICALLY VERIFIED FINAL REPORT 12/30/2020 3:23 PM - Electronically signed by Rodriguez Parisi D.O. PS T: Report ID: [id number] Reading Location: [id number] Mehran Swann MD IMG XR PROCEDURES Final Result * FL Fluoroscopy < 1 Hour (12/30/2020 2:51 PM CDT) Narrative [facility]_THOMAS_[facility] - 12/30/2020 2:53 PM CDT The images from this study are not interpreted by Radiology. ??Please refer to the physician's procedure / OR operative note. Mehran Swann MD IMG FLUOROSCOPY PROCEDURES Fin al Result RAD_MICHELLE_MHB_MHE * (ABNORMAL) POC Blood Gas and Chemistries, Venous - (12/30/2020 11:32 AM CDT) [facility] pH,bisi POC 7.40 7.32 - 7.43 [facility] pCO2, bisi POC 45 40 - 50 mmHg [facility] pO2,bisi POC 33 mmHg [facility] Comment: Interpretive Data No reference range established. Current interpretive data was last revised 2019. HCO3, bisi (Calc) POC 27 20 - 30 mmol/L [facility] Base excess, bsii POC 2 mmol/L [facility] Comment: Interpretive Data No reference range established. Current interpretive data was last revised 2019. Hemoglobin, bisi POC 11.9(L) 13.0 - 17.5 g/dL [facility] Hematocrit, bisi POC 35.0(L) 38.9 - 50.3 % [facility] Sodium, bisi POC 141 135 - 145 mmol/L [facility] Potassium, bisi POC 4.6 3.3 - 4.9 mmol/L [facility] Comment: Interpretive Data Unable to assess hemolysis, Invitro hemolysis causes falsely elevated potassium. Current interpretive data was last revised on 2019. Glucose, bisi POC 116 70 - 199 mg/dL [facility] Blood specimen (specimen) 12/30/2020 11:32 AM CDT 12/30/2020 11:32 AM CDT Mehran Swann MD LAB POCT ORDERABLES - DEVICE F inal Result JULIO MH [id number] [facility] [place] [address] documented in this encounter Visit Diagnoses Diagnosis Coronary artery disease (CAD) excluded- Primary Observation for suspected cardiovascular disease documented in this encounter Admitting Diagnoses Diagnosis Coronary artery disease (CAD) excluded Observation for suspected cardiovascular disease documented in this encounter Administered Medications Inactive Administered Medications - up to 3 most recent administrations Medication Order MAR Action Action Date Dose Rate Site acetaminophen (TYLENOL) tablet 650 mg 650 mg, oral, Every 4 hours PRN, 1st line for pain, Starting on Tue12/30/20 at 1545, Indications: PainIndications:Pain Given 12/31/2020 1:40 PM CDT 650 mg acetaminophen (TYLENOL) tablet 975 mg 975 mg (rounded from 1,000 mg), oral, Once, On Tue12/30/20 at 1130, For 1 dose, Pre-Op, Indications: Pre-Emptive AnalgesiaIndications:Pre-Em ptive Analgesia Given 12/30/2020 11:25 AM CDT 975 mg ceFAZolin (ANCEF) 2,000 mg/20 mL in sterile water (premix) 2,000 mg 2,000 mg, intravenous, at 400 mL/hr, Administer over 3 Minutes, Every 8 hours, First dose on Tue12/30/20 at 2130, For 2 doses, Start 8 hours after pre-op dose., Indications: Prophylaxis, SurgicalIndications:Prophyl axis, Surgical New Bag 12/31/2020 5:18 AM CDT 2,000 mg 400 mL/hr New Bag 12/30/2020 8:12 PM CDT 2,000 mg 400 mL/hr diazePAM (VALIUM) tablet 2 mg 2 mg, oral, Once, On Tue12/30/20 at 1130, For 1 dose, Pre-Op Given 12/30/2020 11:34 AM CDT 2 mg finasteride (PROSCAR) tablet 5 mg 5 mg, oral, Daily, First dose on Tue12/30/20 at 1630, Do not crush, break, or open. Given 12/31/2020 8:44 AM CDT 5 mg Given 12/30/2020 6:12 PM CDT 5 mg heparin 5,000 unit/mL injection 5,000 Units 5,000 Units, subcutaneous, Every 12 hours scheduled, First dose on Tue12/30/20 at 2100, Recovery (CV), Indications: Deep Vein Thrombosis PreventionIndications:Deep Vein Thrombosis Prevention Given 12/31/2020 8:44 AM CDT 5,000 Units Right Lower Abdomen Given 12/30/2020 8:12 PM CDT 5,000 Units L eft Lower Abdomen HYDROcodone-acetaminophen (NORCO) 5-325 mg per tablet 1 tablet 1 tablet, oral, Every 4 hours PRN, 2nd line for pain, Starting on Tue12/30/20 at 1328, Indications: PainIndications:Pain Lactated Ringer's (LR) infusion 125 mL/hr, intravenous, Continuous, Starting on Tue12/30/20 at 1545, Phase I Rate/Dose Verify 12/31/2020 8:46 AM CDT 125 mL/hr 125 mL/hr New Bag 12/31/2020 3:40 AM CDT 125 mL/hr 125 mL/hr New Bag 12/30/2020 7:36 PM CDT 125 mL/hr 125 mL/hr metFORMIN XR (GLUCOPHAGE XR) tablet 1,000 mg 1,000 mg, oral, 2 times daily, First dose on Tue12/30/20 at 2100, Do not crush, chew, cut, dissolve, open or otherwise manipulate tablet/capsule. Given 12/31/2020 8:44 AM CDT 1,000 mg Given 12/30/2020 8:12 PM CDT 1,000 mg metoprolol XL (TOPROL-XL) extended release tablet 12.5 mg 12.5 mg, oral, Daily, First dose on Tue12/31/20 at 0900, Tablets that are scored may be split, but do not crush, chew, dissolve, open or otherwise manipulate tablet/capsule. Given 12/31/2020 8:44 AM CDT 12.5 mg simvastatin (ZOCOR) tablet 20 mg 20 mg, oral, Nightly, First dose on Tue12/30/20 at 2100 Given 12/30/2020 8:12 PM CDT 20 mg tamsulosin (FLOMAX) extended release capsule 0.4 mg 0.4 mg, oral, Daily with dinner, First dose on Tue12/30/20 at 1800, Do not crush, chew, cut, dissolve, open or otherwise manipulate tablet/capsule. Given 12/30/2020 6:12 PM CDT 0.4 mg vancomycin 1250 mg/250 mL in sodium chloride 0.9% (premix) 1,250 mg 1,250 mg (rounded from 1,257 mg = 15 mg/kg ? 83.8 kg), intravenous, Administer over 60 Minutes, Once, On Tue12/30/20 at 1130, For 1 dose, Pre-Op, Indications: Prophylaxis, SurgicalIndications:Prophylaxis, Surgical New Bag 12/30/2020 12:29 PM CDT 1,250 mg documented in this encounter Discontinued Medications Medication Sig Discontinue Reason Start Date End Da te furosemide (LASIX) solution 40 mg/4 mL Take by mouth daily Error 12/31/19 clopidogreL (PLAVIX) 75 mg tablet Take 75 mg by mouth daily Reorder 12/31/2020 documented as of this encounter Historical Medications * This list may reflect changes made after this encounter. furosemide (LASIX) 20 mg tablet Take 20 mg by mouth daily 03/19/2020 lisinopriL (PRINIVIL,ZESTRI L) 5 mg tablet Take 2.5 mg by mouth daily 10/03/2020 glimepiride (AMARYL) 2 mg tabletIndication s:type 2 diabetes mellitus Take 2 mg by mouth daily before breakfast metFORMIN (FORTAMET) 1,000 mg 24 hr tablet Take 1,000 mg by mouth 2 (two) times a day finasteride (PROSCAR) 5 mg tablet Take 5 mg by mouth daily metoprolol XL (TOPROL-XL) 25 mg extended release tablet Take 12.5 mg by mouth daily aspirin 81 mg enteric coated tablet Take 81 mg by mouth daily pravastatin (PRAVACHOL) 40 mg tablet Take 40 mg by mouth nightly tamsulosin (FLOMAX) 0.4 mg extended release capsule 0.4 mg clopidogreL (PLAVIX) 75 mg tablet Take 75 mg by mouth daily furosemide (LASIX) solution 40 mg/4 mL Take by mouth daily 1 added in this encounter Active and Recently Administered Medications Times are shown in CDT. Scheduled Medication Order 12/29/2020 12/30/2020 12/31/2020 acetaminophen (TYLENOL) tablet 975 mg (COMPLETED) 975 mg (rounded from 1,000 mg), oral, Once, On Tue12/30/20 at 1130, For 1 dose, Pre-Op, Indications: Pre-Emptive Analgesia 1125 (Given - Provider: Marcela Ford, RN) ceFAZolin (ANCEF) 2,000 mg/20 mL in sterile water (premix) 2,000 mg (COMPLETED) 2,000 mg, intravenous, at 400 mL/hr, Administer over 3 Minutes, Once, On Tue12/30/20 at 1130, For 1 dose, Pre-Op, Indications: Prophylaxis, Surgical 1328 (Given - Provider: Vanna Glasgow CRNA) ceFAZolin (ANCEF) 2,000 mg/20 mL in sterile water (premix) 2,000 mg (COMPLETED) 2,000 mg, intravenous, at 400 mL/hr, Administer over 3 Minutes, Every 8 hours, First dose on Tue12/30/20 at 2130, For 2 doses, Start 8 hours after pre-op dose., Indications: Prophylaxis, Surgical 2011 (New Bag - Provider: Jackson Mahmood RN) 0518 (New Bag - Provider: Jackson Mahmood, DEANA) diazePAM (VALIUM) tablet 2 mg (COMPLETED) 2 mg, oral, Once, On Tue12/30/20 at 1130, For 1 dose, Pre-Op 1134 (Given - Provider: Marcela Ford, RN) finasteride (PROSCAR) tablet 5 mg 5 mg, oral, Daily, First dose on Tue12/30/20 at 1630, Do not crush, break, or open. 181 (Given - Provider: Jose Garcia, DEANA) 0844 (Given - Provider: Hakeem Collins, RN) heparin 5,000 unit/mL injection 5,000 Units 5,000 Units, subcutaneous, Every 12 hours scheduled, First dose on Tue12/30/20 at 2100, Recovery (CV), Indications: Deep Vein Thrombosis Prevention 2011 (Given - Provider: Jackson Mahmood RN) 0844 (Given - Provider: Hakeem Collins, RN) metFORMIN XR (GLUCOPHAGE XR) tablet 1,000 mg 1,000 mg, oral, 2 times daily, First dose on Tue12/30/20 at 2100, Do not crush, chew, cut, dissolve, open or otherwise manipulate tablet/capsule. 2011 (Given - Provider: Jackson Mahmood RN) 0844 (Given - Provider: Hakeem Collins RN) metoprolol XL (TOPROL-XL) extended release tablet 12.5 mg 12.5 mg, oral, Daily, First dose on Tue12/31/20 at 0900, Tablets that are scored may be split, but do not crush, chew, dissolve, open or otherwise manipulate tablet/capsule. 0844 (Given - Provid er: Hakeem Collins RN) simvastatin (ZOCOR) tablet 20 mg 20 mg, oral, Nightly, First dose on Tue12/30/20 at 2100 2011 (Given - Provider: Jackson Mahmood RN) tamsulosin (FLOMAX) extended release capsule 0.4 mg 0.4 mg, oral, Daily with dinner, First dose on Tue12/30/20 at 1800, Do not crush, chew, cut, dissolve, open or otherwise manipulate tablet/capsule. 1811 (Given - Provider: Jose Garcia RN) vancomycin 1250 mg/250 mL in sodium chloride 0.9% (premix) 1,250 mg (COMPLETED) 1,250 mg (rounded from 1,257 mg = 15 mg/kg ? 83.8 kg), intravenous, Administer over 60 Minutes, Once, On Tue12/30/20 at 1130, For 1 dose, Pre-Op, Indications: Prophylaxis, Surgical 1229 (New Bag - Provider: Radha Oliva RN) Continuous Medication Order 12/29/2020 12/30/2020 12/31/2020 Lactated Ringer's (LR) infusion 125 mL/hr, intravenous, Continuous, Starting on Tue12/30/20 at 1545, Phase I 1550 (Continue to Inpatient Floor - Provider: Jose Garcia RN)1551 (Continue to Inpatient Floor - Provider: Jose Garcia, DEANA)1633 (Restarted - Provider: Jackson Mahmood, DEANA)1936 (New Bag - Provider: Jackson Mahmood RN) 0340 (New Bag - Provider: Jackson Mahmood RN)0846 (Rate/Dose Verify - Provider: Hakeem Collins RN)1200 (Stopped - Provider: Hakeem Collins RN) PRN Medication Order 12/29/2020 12/30/2020 12/31/2020 acetaminophen (TYLENOL) tablet 650 mg 650 mg, oral, Every 4 hours PRN, 1st line for pain, Starting on Tue12/30/20 at 1545, Indications: Pain 1340 (Given - Provid er: Hakeem Collins RN) bupivacaine (MARCAINE) 0.25 % (2.5 mg/mL) preservative free injection (CANCELED) As needed, Starting on Tue12/30/20 at 1435, Intra-Op 1435 (Given - Provider: Mehran Swann MD) ceFAZolin (ANCEF) 1,000 mg in sodium chloride 0.9% 500 mL solution (CANCELED) As needed, Starting on Tue12/30/20 at 1435, Intra-Op 1435 (Given - Provider: Mehran Swann MD) HYDROcodone-acetaminophen (NORCO) 5-325 mg per tablet 1 tablet 1 tablet, oral, Every 4 hours PRN, 2nd line for pain, Starting on Tue12/30/20 at 1328, Indications: Pain lidocaine (XYLOCAINE) 10 mg/mL (1 %) injection (CANCELED) As needed, Starting on Tue12/30/20 at 1447, Intra-Op, Indications: Administration of Local Anesthesia 1447 (Given - Provider: Mehran Swann MD) documented in this encounter Orders Medications Ordered That Mihir ht Not Have Been Administered Count Last Ordered Date First Ordered Date bupivacaine (MARCAINE) 0.25 % (2.5 mg/mL) preservative free injection 1 12/30/2020 ceFAZolin (ANCEF) 1,000 mg i n sodium chloride 0.9% 500 mL solution 1 12/30/2020 ceFAZolin (ANCEF) 2,000 mg/2 0 mL in sterile water (premix) 2,000 mg 1 12/30/2020 diphenhydrAMINE (BENADRYL) i njection 12.5 mg 1 12/30/2020 fentaNYL (SUBLIMAZE) preserv ative free injection 25 mcg 1 12/30/2020 fentaNYL (SUBLIMAZE) preserv ative free injection 50 mcg 1 12/30/2020 hydrALAZINE (APRESOLINE) injection 5 mg 1 0 12/30/2020 HYDROcodone-acetaminophen (N ORCO) 5-325 mg per tablet 1 tablet 1 12/30/2020 HYDROmorphone (DILAUDID) injection 0.2 mg 1 12/30/2020 HYDROmorphone (DILAUDID) injection 0.4 mg 1 12/30/2020 labetaloL (NORMODYNE,TRANDAT E) injection 5 mg 1 12/30/2020 lidocaine (XYLOCAINE) 10 mg/ mL (1 %) injection 1 12/30/2020 meperidine (DEMEROL) preserv ative free injection 25 mg 1 12/30/2020 metoclopramide (REGLAN) injection 10 mg 1 0 12/30/2020 naloxone (NARCAN) 0.4 mg/mL injection 0.04-0.4 mg 1 12/30/2020 ondansetron (ZOFRAN) injection 4 mg 1 12/30 pravastatin (PRAVACHOL) tablet 40 mg 1 12/21 sodium chloride 0.9% flush 0.5-20 mL 1 12/21 Nursing Count Last Ordered Date First Orde red Date TELEMETRY MONITORING 2 12/30/2020 Admission Count Last Ordered Date First Orde red Date INITIATE OBSERVATION SERVICES 1 12/30/2020 Discharge Count Last Ordered Date First Orde red Date DISCHARGE PATIENT 1 12/31/2020 documented in this encounter Care Teams Casing Tier Relationship Specialty Start Date End Date Floyd Mckinney MD [address] [place] [address] PCP - General 03/11/20 Jarvis Burdick MD [address] [place] [address] Consulting Physician Cardiovascular Disease 12/26/20 documented as of this encounter
--- OUTSIDE RECORDS SUMMARY | 2024-05-22 02:17 | XMS_ITS | Continuity of Care Document ---
Author Organization [facility] Address [address] [facility] [facility] [address] [place] [address] Phone Care Team Providers Care Corsage Maker Name Role Phone Cali Caruso Unavailable Unavailable Procedures Procedure Date Optic Nerve Topography Optic Nerve Topography Office/outpatient Visit, Est Fundus Photography W/ Report Visual Field Examination(s) Office/outpatient Visit, Est Visual Field Examination(s) Eye Exam & Treatment Refraction Office/outpatient Visit, Est Office/outpatient Visit, Est Advance Directives Directive Yes / No Effective Date File Name No Information Encounters Encounter Description Practice Location Reason(s) For Visit Diagnoses Date Provider Providers Copied on Encounter [facility], [id number] [place] [address] [address], [place], [place], [id number], [place] tel:[phone] [facility] No Information 0 Shady Leiva. [facility] , [address], [place], [address], [place]. tel:[phone] Referring Provider: Nicolasa Juarez [facility] [address], [place], [place], [facility]. tel:[phone] Office/outpat ient Visit, Est [facility], [address], [place], [place], [id number], [place] tel:[phone] [facility] No Information May-0 5-201 0 Shady Leiva. [address], [address], [place], [address], [place]. tel:[phone] Referring Provider: Cali Quiñones, [employer] [address], [place], [place], [facility]. tel:[phone] [facility], [id number] [place] [address] [address], [place], [place], [id number], [place] tel:[phone] [facility] No Information 2 0-201 0 Shady Leiva. [address] [facility] [address], [address], [place], [facility], [place]. tel:[phone] Referring Provider: Cali Quiñones, Nicolasa [facility] [address], [place], [place], [facility]. tel:[phone] Office/outpat ient Visit, [facility] [id number] [place] [address] [address], [place], [place], [id number], [place] tel:[phone] [facility] No Information 4-200 9 Shady Leiva. [facility] [address], [address], [place], [facility], [place]. tel:[phone] [facility], [address], [place], [place], [id number], [place] tel:[phone] [facility] No Information 7-200 9 Shady Leiva. [facility] [address], [address], [place], [facility], [place]. tel:[phone] Referring Provider: Nicolasa Juarezate [address], [place], [facility]. tel:[phone] [facility], [address] [place] [address] [address], [place], [place], [id number], [place] tel:[phone] [facility] No Information 6-200 9 Shady Leiva. [address] [facility] , [address], [place], [address], [place]. tel:[phone] Office/outpat ient Visit, [facility] [address], [place], [place], [id number], tel:[phone] [facility] No Information 200 7 Shady Leiva. [address] [facility] , [address], [place], [facility], [place]. tel:[phone] Office/outpat ient Visit, [facility], [address], [place], [place], [id number], tel:[phone] [facility] No Information 7 Shady Leiva. [address] [facility] , [address], [place], [place], [facility], [place]. tel:[phone] Family History Family Member Type Diagnosis Age At Onset No Information Payers Payer name Insurance type Covered democrat ID Authoriza tiarden(s) [employer] [id number] Social History Type Description Quantity Date Captured Comments Sex Male Smoking Status No Information Chief Complaint And Reason For Visit No Information Reason For Referral Reason For Referral No Information History Of Present Illness Encounter Date Complaint History Of Prese nt Illness No Information Functional Status Date Functional Assessmen t No Information Instructions Date Instruction Additional Infor mation No Information Assessments Type Assessment Date No Information Patient Care Teams Name Effective Dates (start - stop) Status Members No Information
--- OUTSIDE RECORDS SUMMARY | 2024-05-22 02:17 | XMS_ITS | Encounter Summary ---
Author Organization [facility] Healthcare Address [address] [place] [id number] Care Team Providers Care Supervisor Finishing Room Name Role Phone Floyd Mckinney MD Primary Care Provider [phone] Encounter Details Date Type Department Care Team (Late st Contact Info) Description 03/11/2020 4:06 PM CDT - 03/14/2020 9:50 PM CDT Hospital Encounter [facility] ADMIT Anjelica Freeman MD [facility] [place], [place] [id number] Discharge Disposition: Discharge to a short term hospital for IP Social History Tobacco Use Types Packs/Day Years Used Date Smoking Tobacco: Never Assessed Sex and Gender Information Value Date Recorded Sex Assigned at Not on file Legal Sex Male 1:00 AM NOTEMAN Gender Identity Not on file Sexual Orientation Not on file documented as of this encounter Last Filed Vital Signs Vital Sign Reading Time Taken Comments Blood Pressure 115/72 03/12/2020 12:21 PM CDT Pulse 75 03/12/2020 12:21 PM CDT Temperature 36.8 ??C (98.3 ??F) 03/12/2020 1 2:21 PM CDT Respiratory Rate - - Oxygen Saturation 98% 03/12/2020 12: 21 PM CDT Inhaled Oxygen Concentration - - Weight 83.8 kg (184 lb 11.2 oz) 020 12:21 PM CDT Height 180.3 cm (5' 11 ) 03/12/2020 12: 21 PM CDT Body Mass Index 25.76 03/12/2020 12:21 PM CDT documented in this encounter Discharge Disposition Disposition Code Departure Means Destination Discharge to a short term hospital for IP documented in this encounter Plan of Treatment Not on file documented as of this encounter Procedures Procedure Name Priority Date/Time Associated Diagnosis Comments CBC WITH AUTO DIFFERENTIAL Routine 03/14/2020 3:16 PM CDT HEPARIN ANTI FACTOR XA ACTIVITY Routine 03/14/2020 5:44 AM CDT CBC WITH AUTO DIFFERENTIAL Routine 03/14/2020 5:44 AM CDT MAGNESIUM Routine 03/14/2020 5:44 AM CDT BASIC METABOLIC PANEL Routine 03/14/2020 5:44 AM CDT CARDIOLOGY REPORT 03/14/2020 12: 00 AM CDT HEPARIN ANTI FACTOR XA ACTIVITY Routine 03/13/2020 11:14 PM CDT TRANSESOPHAGEAL ECHO (MATT) W DOPPLER/CF 03/13/2020 2:23 PM CDT THYROID FUNCTION CASCADE Routine 03/13/2020 9:17 AM CDT TROPONIN I Routine 03/13/2020 9:17 AM CDT MAGNESIUM Routine 03/13/2020 9:17 AM CDT BASIC METABOLIC PANEL Routine 03/13/2020 9:17 AM CDT HEPARIN ANTI FACTOR XA ACTIVITY Routine 03/13/2020 7:15 AM CDT SCAN - LABS 03/13/2020 12:00 AM CDT HEPARIN ANTI FACTOR XA ACTIVITY Routine 03/12/2020 12:10 PM CDT HEPARIN ANTI FACTOR XA ACTIVITY Routine 03/12/2020 6:40 AM CDT TROPONIN I Routine 03/12/2020 6:40 AM CDT HEMOGLOBIN A1C Routine 03/12/2020 6:40 AM CDT LIPID PANEL Routine 03/12/2020 6:40 AM CDT CARDIOLOGY REPORT 03/12/2020 12: 00 AM CDT HEPARIN ANTI FACTOR XA ACTIVITY Routine 03/11/2020 11:11 PM CDT TRANSTHORACIC ECHO (TTE) COMPLETE W DOPPLER/CF 03/11/2020 5:37 PM CDT COVID-19 CORONAVIRUS RNA Routine 03/11/2020 5:32 PM CDT ECG 12-LEAD 03/11/2020 4:55 PM CDT CBC WITH AUTO DIFFERENTIAL Routine 03/11/2020 4:33 PM CDT APTT Routine 03/11/2020 4:33 PM CDT PROTIME-INR Routine 03/11/2020 4:33 PM CDT MAGNESIUM Routine 03/11/2020 4:33 PM CDT COMPREHENSIVE METABOLIC PANEL Routine 03/11/2020 4:33 PM CDT documented in this encounter Results * (ABNORMAL) CBC with auto differential (03/14/2020 3:16 PM CDT) WBC 7.3 3.8 - 9.9 X10 3/ul [facility] RBC 4.25(L) 4.30 - 5.80 x10 6/ul [facility] Hemoglobin 12.7(L) 13.0 - 17.5 g/dL [facility] Hct 37.5(L) 38.9 - 50.3 % [facility] MCV 88.2 81.3 - 96.4 fl [facility] MCH 29.9 27.1 - 33.3 pg [facility] MCHC 33.9 32.3 - 35.7 g/dl [facility] RDW 13.9 11.1 - 14.9 % [facility] Plt Count 194 150 - 400 x10 3/ul [facility] MPV 11.8 9.1 - 12.3 fl [facility] Neut % 66.4 % [facility] Immature Gran % 0.1 % [facility] Lymph % 17.2 % [facility] Shannon % 13.4 % [facility] Eos % 2.2 % [facility] AUTO BASO % 0.7 % [facility] NEUTROPHIL ABS # 4.8 1.7 - 6.5 x10 3/ul [facility] Immature Gran # 0.0 0.0 - 0.1 x10 3/ul [facility] Absolute Lymphs (auto) 1.3 0.8 - 3.3 x10 3/ul [facility] Absolute Monos (auto) 1.0(H) 0.2 - 0.8 x10 3/ul [facility] Absolute Eos (auto) 0.2 0.0 - 0.5 x10 3/ul [facility] BASOPHIL ABS # 0.1 0.0 - 0.1 x10 3/ul [facility] Nucleat RBC Rel Count 0.0 #/100WBC [facility] NRBC abs 0.00 0.00 - 0.01 x10 3/ul [facility] Absolute Neutrophils 4,800 200 - 8,000 /ul [facility] 03/14/2020 3:16 PM CDT 03/14/2020 3:43 PM CDT Narrative Resulting Agency Comment IN us Rafa Simms MD LAB BLOOD ORDERABLES Sonali hu Result [facility] [address] [phone] * Magnesium (03/14/2020 5:44 AM CDT) Magnesium 2.0 1.6 - 2.6 mg/dL [facility] Comment: Magnesium sulfate therapy: ??3.0-9.1 mg/dL 03/14/2020 5:44 AM CDT 03/14/2020 6:35 AM CDT Narrative Resulting Agency Comment IN us Jhonatan Alcala MD LAB BLOOD ORDERABLES Final Re sult [facility] [address] [place] [address], [facility] [phone] * (ABNORMAL) Basic metabolic panel (03/14/2020 5:44 AM CDT) Sodium 136 135 - 145 mmol/L [facility] Potassium 4.4 3.3 - 5.1 mmol/L [facility] Chloride 96 96 - 108 mmol/L [facility] Carbon Dioxide 29 22 - 32 mmol/L [facility] Anion Gap 11 7 - 16 [facility] Glucose 149(H) 70 - 100 mg/dL [facility] Comment: Results reviewed BUN 32(H) 8 - 25 mg/dL [facility] Creatinine 1.1 0.5 - 1.3 mg/dL [facility] Comment: NOTE: Estimated GFR (Cockroft-Gault) will NOT be calculated unless patient Height and Weight were entered. Also, Kidney Disease Stage (GFR) and Estimated GFR (Cockroft-Gault) will NOT be calculated if Creatinine result is <0.2. Kidney Disease Stage 69 mL/MIN [facility] Comment: NOTE; ??The GFR is an estimated value using the creatinine, sex, age, and race of the patient. THE Estimated Kidney Disease GFR is validated for AGES 18-70 YEARS STAGE ?mL/Min ?DESCRIPTION ??1 ?90 mL/min or more ?Normal or elevated GFR ??2 ? 60-89 mL/min ?Mildly decreased GFR ??3 ? 30-59 mL/min ?Moderately decreased GFR ??4 ? 15-29 mL/min ?Severely decreased GFR ??5 ? <15 mL/min ? Kidney failure or on dialysis Est GFR (Cockcroft-G) 62 ml/MIN [facility] Comment: Estimated GFR(Cockroft-Gault)is used to calculate patient medication dosage Calcium 10.1 8.6 - 10.3 mg/dL [facility] 03/14/2020 5:44 AM CDT 03/14/2020 6:35 AM CDT Narrative Resulting Agency Comment IN Jhonatan Alcala MD LAB BLOOD ORDERABLES Final Re sult [facility] [address] [place] [address], [facility] [phone] * Heparin anti factor Xa activity (03/14/2020 5:44 AM CDT) Heparin Chromogenic 0.38 0.30 - 0.70 IU/mL [facility] Comment: Anti-factor Xa is used to monitor unfractionated Heparin in weight-based Heparin therapy. ??At [facility], anti-factor Xa cannot be used to monitor Low Molecular Weight Heparin. ??If Low Molecular Weight Heparin monitoring is desired, please order LMWH [place] [phone]. 03/14/2020 5:44 AM CDT 03/14/2020 6:35 AM CDT Narrative [facility] - 03/14/2020 6:50 AM CDT Is patient on IV unfractionated heparin Y Resulting Agency Comment IN Anjelica Freeman MD LAB BLOOD ORDER SUMMER Final Result [facility] [address] [place] [address], [facility] [phone] * (ABNORMAL) CBC with auto differential (03/14/2020 5:44 AM CDT) WBC 8.8 3.8 - 9.9 X10 3/ul [facility] RBC 4.27(L) 4.30 - 5.80 x10 6/ul [facility] Hemoglobin 12.9(L) 13.0 - 17.5 g/dL [facility] Hct 38.1(L) 38.9 - 50.3 % [facility] MCV 89.2 81.3 - 96.4 fl [facility] MCH 30.2 27.1 - 33.3 pg [facility] MCHC 33.9 32.3 - 35.7 g/dl [facility] RDW 14.1 11.1 - 14.9 % [facility] Plt Count 183 150 - 400 x10 3/ul [facility] MPV 11.8 9.1 - 12.3 fl [facility] Neut % 68.3 % [facility] Immature Gran % 0.3 % [facility] Lymph % 16.0 % [facility] Shannon % 12.1 % [facility] Eos % 2.7 % [facility] AUTO BASO % 0.6 % [facility] NEUTROPHIL ABS # 6.0 1.7 - 6.5 x10 3/ul [facility] Immature Gran # 0.0 0.0 - 0.1 x10 3/ul [facility] Absolute Lymphs (auto) 1.4 0.8 - 3.3 x10 3/ul [facility] Absolute Monos (auto) 1.1(H) 0.2 - 0.8 x10 3/ul [facility] Absolute Eos (auto) 0.2 0.0 - 0.5 x10 3/ul [facility] BASOPHIL ABS # 0.1 0.0 - 0.1 x10 3/ul [facility] Nucleat RBC Rel Count 0.0 #/100WBC [facility] NRBC abs 0.00 0.00 - 0.01 x10 3/ul [facility] Absolute Neutrophils 6,000 200 - 8,000 /ul [facility] 03/14/2020 5:44 AM CDT 03/14/2020 6:35 AM CDT Narrative Resulting Agency Comment IN Jhonatan Alcala MD LAB BLOOD ORDERABLES Final Re sult [facility] [address] [place] [address], [facility] [phone] * CARDIOLOGY REPORT (03/14/2020 12:00 AM CDT) Anatomical Region Laterality Modality Other Narrative 03/14/2020 12:00 AM CDT Ordered by an unspecified provider. Historical Provider [facility] Final Result * Heparin anti factor Xa activity (03/13/2020 11:14 PM CDT) Heparin Chromogenic 0.32 0.30 - 0.70 IU/mL [facility] Comment: Anti-factor Xa is used to monitor unfractionated Heparin in weight-based Heparin therapy. ??At [facility], anti-factor Xa cannot be used to monitor Low Molecular Weight Heparin. ??If Low Molecular Weight Heparin monitoring is desired, please order LMWH [place] Heme [place] extension [phone]. 03/13/2020 11:1 4 PM CDT 03/13/2020 11:38 PM CDT Narrative [facility] - 03/13/2020 11:48 PM CDT Is patient on IV unfractionated heparin Y Resulting Agency Comment IN Rafa Simms MD LAB BLOOD ORDERABLES Sonali l Result [facility] [address] [place] [address], [facility] [phone] * Transesophageal Echo W Doppler/CF (03/13/2020 2:23 PM CDT) Anatomical Region Laterality Modality Ultrasound 03/13/2020 2:23 PM CDT Narrative 03/14/2020 11:56 AM CDT ?Transesophageal Echocardiogram + ----- ----+ :Name: PADMINI RIOS ? Study Date: 03/13/2020 ?Status: IN;MAIN ? : : ?Patient Location: H.4S^S403^02Height: 71 in ? : : ?Weight: 186 lb BP: 130/80 mmHg: :: 1940 ? Gender: Male ?BSA: 2.0 m2 ? : :Reason For Study: Aortic Stenosis ? : :Ordering Physician: Zabad, ?: :Mohammad ?: : ?: :Performed By: Dinora Silva, ?: :RDCS, RCS ? : + ----- ----+ Procedure Informed consent for Transesophageal Echocardiogram, and use of a contrast agent as needed, was obtained prior to the procedure. The patient was brought to the cardiac catheterization lab in a fasting state. An intravenous line was placed. A topical anesthetic agent was used for oropharangeal anesthesia. A bite block was inserted. IV concious sedation was administered using versed and fentanyl. A multifrequency, multiplane transesopheageal echocardiographic endoscope was inserted and manipulated in the standard fashion to achieve multiplane views. The usual views were obtained; basal, mid-esophageal, transgastric and aortic views. The patient's vital signs, including blood pressure, heart rate, pulse oximetry and cardiac rhythm were monitored throughout the procedure and remained stable. The patient was monitored closely during stress and in recovery until the heart rate and blood pressure returned to baseline, and then was transferred to the waiting room in stable condition. Left Ventricle Left ventricular systolic function is severely reduced. EF is 20-25%. The left ventricle is mildly dilated. There is normal left ventricular wall thickness. There is no thrombus. There is severe global hypokinesis of the left ventricle. Right Ventricle The right ventricular systolic function is mildly reduced. The right ventricle is normal in size and function. Atria The left atrium is mildly dilated. Right atrial size is normal. The interatrial septum is intact with no evidence for an atrial septal defect. Mitral Valve There is mild to moderate mitral regurgitation. The mitral valve is normal in structure and function. Tricuspid Valve There is moderate tricuspid regurgitation with excentric (septally directed) jet. The tricuspid valve is not well visualized. Aortic Valve Mild aortic regurgitation. 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 There is moderate restriction of the non coronary cusp There is moderate aortic stenosis. Aortic valve area by planimetry is 1.2 cm2. The aortic valve is trileaflet. Pulmonic Valve The pulmonic valve is not well visualized. Great Vessels The aortic root is normal size. Pericardium There is no pericardial effusion. 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 There is moderate restriction of the non coronary cusp There is moderate aortic stenosis. Aortic valve area by planimetry is 1.2 cm2 LV is mildly dilated with severe systolic dysfunction. EF 20-25% Mitral valve is structurally normal with mild to moderate mitral regurgitation Tricuspid valve is not well visaualized. There is moderate tricuspid regurgitation with excentric (septally directed) jet. + + :Measurements with Normals ?: + + Doppler Measurements & Calculations TR max azeem: 362.0 cm/sec TR max P.4 mmHg Electronically signed by: Lian Simms MD 03/14/2020 11:56 AM Resulting Agency Comment I Procedure Note Rafa Simms MD - 03/14/2020 Transesophageal Echocardiogram + ----- ----+ :Name: PADMINI RIOS Study Date: 03/13/2020 Status: IN;MAIN: : Patient Location: M[place]enna^S403^02Height: 71 in: : Weight: 186 lbBP: 130/80 mmHg: :: 1940 Gender: Male BSA: 2.0 m2: :Reason For Study: Aortic Stenosis: :Ordering Physician: Mendez,: :Rafa: :: :Performed By: Dinora Silva,: :LAM, RCS: + ----- ----+ Procedure Informed consent for Transesophageal Echocardiogram, and use of acontrast agent as needed, was obtained prior to the procedure. The patient wasbrought to the cardiac catheterization lab in a fasting state. An intravenous linewas placed. A topical anesthetic agent was used for oropharangeal anesthesia.A bite block was inserted. IV concious sedation was administered usingversed and fentanyl. A multifrequency, multiplane transesopheagealechocardiographic endoscope was inserted and manipulated in the standard fashion toachieve multiplane views. The usual views were obtained; basal, mid-esophageal, transgastric and aortic views. The patient's vital signs, includingblood pressure, heart rate, pulse oximetry and cardiac rhythm were monitored throughout the procedure and remained stable. The patient was monitored closely during stress and in recovery until the heart rate and bloodpressure returned to baseline, and then was transferred to the waiting room instable condition. Left Ventricle Left ventricular systolic function is severely reduced. EF is 20-25%. Theleft ventricle is mildly dilated. There is normal left ventricular wallthickness. There is no thrombus. There is severe global hypokinesis of the left ventricle. Right Ventricle The right ventricular systolic function is mildly reduced. The rightventricle is normal in size and function. Atria The left atrium is mildly dilated. Right atrial size is normal. The interatrial septum is intact with no evidence for an atrial septaldefect. Mitral Valve There is mild to moderate mitral regurgitation. The mitral valve is normalin structure and function. Tricuspid Valve There is moderate tricuspid regurgitation with excentric (septallydirected) jet. The tricuspid valve is not well visualized. Aortic Valve Mild aortic regurgitation. There is fusion and severe restriction of theleft and right coronary cusps of the aortic valve. There is moderate restriction of the non coronary cusp There is moderate aortic stenosis. Aortic valve area by planimetry is 1.2 cm2. The aortic valve istrileaflet. Pulmonic Valve The pulmonic valve is not well visualized. Great Vessels The aortic root is normal size. Pericardium There is no pericardial effusion. Interpretation Summary There is fusion and severe restriction of the left and right coronarycusps of the aortic valve. There is moderate restriction of the non coronary cusp There is moderate aortic stenosis. Aortic valve area by planimetry is 1.2 cm2 LV is mildly dilated with severe systolic dysfunction. EF 20-25% Mitral valve is structurally normal with mild to moderate mitralregurgitation Tricuspid valve is not well visaualized. There is moderate tricuspid regurgitation with excentric (septally directed) jet. + + :Measurements with Normals: + + Doppler Measurements & Calculations TR max azeem: 362.0 cm/sec TR max P.4 mmHg Electronically signed by: Lian Simms MD 03/14/2020 11:56 AM us Rafa Simms MD CV ECHO PROCEDURES Final Result * TSH reflex to free T4 (03/13/2020 9:17 AM CDT) Pathologist [facility] [place] TSH W REFLEX TO FT4 1.710 0.27 - 4.20 uIU/mL [facility] 03/13/2020 9:17 AM CDT 03/13/2020 9:43 AM CDT Narrative Resulting Agency Comment IN us Indira Martinez MEDICAL SOCIOLOGIST LAB BLOOD ORDERABLES Final Result Performing Organization Address [facility]/ZIP Co de Phone Number [address] [phone] * Magnesium (03/13/2020 9:17 AM CDT) [facility] Magnesium 1.8 1.6 - 2.6 mg/dL [facility] Comment: Magnesium sulfate therapy: ??3.0-9.1 mg/dL 03/13/2020 9:17 AM CDT 03/13/2020 9:43 AM CDT Narrative Resulting Agency Comment IN us Indira aMrtinez NP LAB BLOOD ORDERABLES Final Result [address] [phone] * (ABNORMAL) Basic metabolic panel (03/13/2020 9:17 AM CDT) [facility] Sodium 132(L) 135 - 145 mmol/L [facility] Potassium 4.5 3.3 - 5.1 mmol/L [facility] Chloride 92(L) 96 - 108 mmol/L [facility] Carbon Dioxide 28 22 - 32 mmol/L [facility] Anion Gap 12 7 - 16 [facility] Glucose 270(H) 70 - 100 mg/dL [facility] Comment: Results reviewed BUN 30(H) 8 - 25 mg/dL [facility] Creatinine 1.2 0.5 - 1.3 mg/dL [facility] Comment: NOTE: Estimated GFR (Cockroft-Gault) will NOT be calculated unless patient Height and Weight were entered. Also, Kidney Disease Stage (GFR) and Estimated GFR (Cockroft-Gault) will NOT be calculated if Creatinine result is <0.2. Kidney Disease Stage 62 mL/MIN [facility] Comment: NOTE; ??The GFR is an estimated value using the creatinine, sex, age, and race of the patient. THE Estimated Kidney Disease GFR is validated for AGES 18-70 YEARS STAGE ?mL/Min ?DESCRIPTION ??1 ?90 mL/min or more ?Normal or elevated GFR ??2 ? 60-89 mL/min ?Mildly decreased GFR ??3 ? 30-59 mL/min ?Moderately decreased GFR ??4 ? 15-29 mL/min ?Severely decreased GFR ??5 ? <15 mL/min ? Kidney failure or on dialysis Est GFR (Cockcroft-G) 57 ml/MIN [facility] Comment: Estimated GFR(Cockroft-Gault)is used to calculate patient medication dosage Calcium 9.5 8.6 - 10.3 mg/dL [facility] 03/13/2020 9:17 AM CDT 03/13/2020 9:43 AM CDT Narrative Resulting Agency Comment IN us Indira Martinez NP LAB BLOOD ORDERABLES Final Result Performing Organization Address [facility] Co de Phone Number [address] [phone] * (ABNORMAL) Troponin I (03/13/2020 9:17 AM CDT) [facility] Troponin I 1.070(HH) 0.000 - 0.300 ng/mL [facility] Comment: CRITICAL VALUE previously reported. See results in EMR. Reference using SHERI Chemiluminescence ? Consistent with [place]: ? Clinical and Laboratory correlation is recommended. 03/13/2020 9:17 AM CDT 03/13/2020 9:43 AM CDT Narrative Resulting Agency Comment IN Indira Martinez NP LAB BLOOD ORDERABLES Final Result Performing Organization Address [facility] Co de Phone Number [address] [phone] * Heparin anti factor Xa activity (03/13/2020 7:15 AM CDT) [facility] Heparin Chromogenic 0.44 0.30 - 0.70 IU/mL [facility] Comment: Anti-factor Xa is used to monitor unfractionated Heparin in weight-based Heparin therapy. ??At [facility], anti-factor Xa cannot be used to monitor Low Molecular Weight Heparin. ??If Low Molecular Weight Heparin monitoring is desired, please order LMWH and notify Heme at extension [phone]. 03/13/2020 7:15 AM CDT 03/13/2020 7:41 AM CDT Narrative [facility] - 03/13/2020 7:55 AM CDT Is patient on IV unfractionated heparin Y Resulting Agency Comment IN Rafa Simms MD LAB BLOOD ORDERABLES Sonali l Result Performing Organization Address [facility]/ZIP Co de Phone Number [address] [phone] * SCAN - LABS (03/13/2020 12:00 AM CDT) Narrative 03/13/2020 12:00 AM CDT Ordered by an unspecified provider. Historical Provider Final Res ult * Heparin anti factor Xa activity (03/12/2020 12:10 PM CDT) [facility] Heparin Chromogenic 0.31 0.30 - 0.70 IU/mL [facility] Comment: Anti-factor Xa is used to monitor unfractionated Heparin in weight-based Heparin therapy. ??At [facility], anti-factor Xa cannot be used to monitor Low Molecular Weight Heparin. ??If Low Molecular Weight Heparin monitoring is desired, please order LMWH and notify Heme at extension [phone]. 03/12/2020 12:1 0 PM CDT 03/12/2020 12:23 PM CDT Narrative [facility] - 03/12/2020 12:39 PM CDT Is patient on IV unfractionated heparin Y Resulting Agency Comment IN Rafa Simms MD LAB BLOOD ORDERABLES Sonali l Result [facility] [address] [phone] * (ABNORMAL) Troponin I (03/12/2020 6:40 AM CDT) [facility] Troponin I 2.110(HH) 0.000 - 0.300 ng/mL [facility] Comment: CRITICAL VALUE CALLED and REPEATED. at:0747 03/12/20 by:Kelli Estrada to:[id number] Reference using SHERI Chemiluminescence ? Consistent with [place]: ? Clinical and Laboratory correlation is recommended. 03/12/2020 6:40 AM CDT 03/12/2020 7:10 AM CDT Narrative Resulting Agency Comment IN Jarvis Burdick MD LAB BLOOD ORDERABLES Final Re sult [facility] [address] [place] [address], [facility] [phone] * Lipid panel (03/12/2020 6:40 AM CDT) Triglycerides 73 0 - 149 mg/dL [facility] Comment: National Lipid Association/NCEP Guidelines: ?? Normal ?< 150 mg/dL ?? Borderline high ?? 150-199 mg/dL ?? High ?200-499 mg/dL ?? Very High ? >=500 mg/dL Cholesterol 113 0 - 199 mg/dL [facility] Comment: National Lipid Association/NCEP Guidelines: Desirable ? < 200 mg/dL Borderline high: ??200-239 mg/dL High Risk: ?>=240 mg/dL HDL Cholesterol 38 mg/dL [facility] Comment: Reference Ranges: ? Males: >=40 mg/dL ? Females: >=50 mg/dL LDL Cholesterol, Calc 60 0 - 129 mg/dL [facility] Comment: National Lipid Association/NCEP Guidelines: ??Optimal ? < 100 mg/dL ??Near Optimal ?100-129 mg/dL ??Borderline high 130-159 mg/dL ??High ?>=160 mg/dL Cholesterol/HDL Ratio 3.0 [facility] Comment: Optimal ??< 3.5:1 High ? > 5:1 03/12/2020 6:40 AM CDT 03/12/2020 7:10 AM CDT Narrative Resulting Agency Comment IN us Jarvis Burdick MD LAB BLOOD ORDERABLES Final Re sult [facility] [address] [place] [address], [facility] [phone] * Heparin anti factor Xa activity (03/12/2020 6:40 AM CDT) [facility] Heparin Chromogenic 0.31 0.30 - 0.70 IU/mL [facility] Comment: Anti-factor Xa is used to monitor unfractionated Heparin in weight-based Heparin therapy. ??At [facility], anti-factor Xa cannot be used to monitor Low Molecular Weight Heparin. ??If Low Molecular Weight Heparin monitoring is desired, please order [place] [phone]. 03/12/2020 6:40 AM CDT 03/12/2020 7:10 AM CDT Narrative [facility] - 03/12/2020 7:26 AM CDT Is patient on IV unfractionated heparin Y Resulting Agency Comment IN Rafa Simms MD LAB BLOOD ORDERABLES Sonali l Result [facility] [address] [phone] * (ABNORMAL) Hemoglobin A1c (03/12/2020 6:40 AM CDT) [facility] Hemoglobin A1c % 5.9(H) 4.0 - 5.6 % [facility] Comment: ADA 2016 GUIDELINES: ??Initial Diagnostic Criteria ? HbA1c Result: ?Interpretation: ?<5.7% ? Normal ?5.7-6.4% ?At risk for diabetes mellitus ?>=6.5% ?Consistent with diabetes mellitus ??Diabetes monitoring ? Target value (ADA Recommended) ?? <7% 03/12/2020 6:40 AM CDT 03/12/2020 7:10 AM CDT Narrative Resulting Agency Comment IN Neema Song NP LAB BLOOD ORDERABLES Final Resul t [address] [phone] * CARDIOLOGY REPORT (03/12/2020 12:00 AM CDT) Anatomical Region Laterality Modality Other Narrative 03/12/2020 12:00 AM CDT Ordered by an unspecified provider. Historical Provider [facility] Final Result * (ABNORMAL) Heparin anti factor Xa activity (03/11/2020 11:11 PM CDT) Heparin Chromogenic <0.10(L) 0.30 - 0.70 IU/mL [facility] Comment: Patient is on heparin Anti-factor Xa is used to monitor unfractionated Heparin in weight-based Heparin therapy. ??At [facility], anti-factor Xa cannot be used to monitor Low Molecular Weight Heparin. ??If Low Molecular Weight Heparin monitoring is desired, please order [place] [phone]. The Factor XA test should only be used to detect the heparin level in patients undergoing weight based heparin therapy. 03/11/2020 11:1 1 PM CDT 03/11/2020 11:21 PM CDT Narrative [facility] - 03/11/2020 11:56 PM CDT Is patient on IV unfractionated heparin Y Resulting Agency Comment IN Rafa Simms MD LAB BLOOD ORDERABLES Sonali l Result Performing Organization Address [facility]/[place] [address], [facility] [phone] * Transthoracic Echo Complete W Doppler/CF (03/11/2020 5:37 PM CDT) Anatomical Region Laterality Modality Ultrasound 03/11/2020 5:37 PM CDT Narrative 03/12/2020 10:54 AM CDT ? Adult Echocardiogram + ----- ----+ :Name: PADMINI RIOS ? Study Date: 03/11/2020 ?Status: IN;MAIN ? : : ?Patient Location: H.4S^S403^02Height: 71 in ? : : ?Weight: 191 lb BP: 104/65 mmHg: :: 1940 ? Gender: Male ?BSA: 2.1 m2 ? : :Reason For Study: CABG ?: :Ordering Physician: Mendez, ?: :Rafa ?: : ?: :Performed By: Maria Esther Novak, ? : :RDCS ?: + ----- ----+ Procedure A two-dimensional transthoracic echocardiogram with color flow and Doppler was performed. Left Ventricle The left ventricle is mildly dilated. There is normal left ventricular wall thickness. Left ventricular systolic function is severely reduced. EF is 25- 30%. There is severe global hypokinesis of the left ventricle. There is no thrombus. Right Ventricle The right ventricle is normal in size and function. The right ventricular systolic function is mildly reduced. Atria The left atrium is mildly dilated. Right atrial size is normal. Mitral Valve The mitral valve is normal in structure and function. There is mild to moderate mitral regurgitation. Tricuspid Valve The tricuspid valve is normal. There is mild tricuspid regurgitation. 'Mild' pulmonary hypertension. Aortic Valve The aortic valve is trileaflet. Aortic valve is moderately calcified with moderate restricted motion. There is moderate aortic stenosis. Aortic valve peak velocity is 3 m/s Aortic valve mean gradient is 21 Aortic valve area is 1.2 cm2. Mild aortic regurgitation. Pulmonic Valve The pulmonic valve is not well visualized. Great Vessels The aortic root is normal size. The pulmonary artery is not well visualized, but is probably normal size. IVC collapses normally with inspiration. Pericardium There is no pericardial effusion. Diastology Diastolic dysfunction, Grade III (restrictive pattern), consistent with markedly increased left atrial pressure. Interpretation Summary The left ventricle is mildly dilated. Left ventricular systolic function is severely reduced. EF is 25-30% The right ventricular systolic function is mildly reduced. There is moderate aortic stenosis. Aortic valve peak velocity is 3 m/s Aortic valve mean gradient is 21 Aortic valve area is 1.2 cm2. There is mild to moderate mitral regurgitation. There is mild tricuspid regurgitation. 'Mild' pulmonary hypertension. There is no pericardial effusion. + + :Measurements with Normals ?: : ?(0.6-1.2 ?LVIDd: ?(3.5-5.7 ?? Ao root diam: ?(2.0-3.7 ?? : :IVSd: 1.1 cmcm) ? 6.0 cm ?cm) ?3.4 cm ? cm) ?: :LVPWd: ?(0.6-1.1 ?LVIDs: ?(3.1-4.6 ?? LA dimension: ?(1.9-4.0 ?? : :1.3 cm ?cm) ? 5.7 cm ?cm) ?4.6 cm ? cm) ?: + + MMode/2D Measurements & Calculations FS: 4.3 % ?Ao root area: 9.1 cm2 ?LVOT diam: 2.3 cm EDV(Teich): 178.6 ml ?LVOT area: 4.2 cm2 ESV(Teich): 161.3 ml Doppler Measurements & Calculations MV E max azeem: ? Ao V2 max: ? AI max azeem: ? LV V1 max P.0 cm/sec ?262.0 cm/sec ? 256.0 cm/sec ?3.1 mmHg MV A max azeem: ? Ao max PG: ? AI max P.2 mmHgLV V1 mean P.0 cm/sec ? 28.2 mmHg ?AI dec slope: ? 2.0 mmHg MV E/A: 6.8 ? Ao V2 mean: ?141.0 cm/sec2 ? LV V1 max: ?191.5 cm/sec ? AI P1/2t: 531.8 msec88.1 cm/sec ?Ao mean PG: ?LV V1 mean: ?16.5 mmHg ?65.4 cm/sec ?Ao V2 VTI: 53.5 cm ? LV V1 VTI: 18.1 cm ?NGUYỄN(I,D): 1.4 cm2 ?NGUYỄN(V,D): 1.4 cm2 ? SV(LVOT): 75.2 ml ?? TV V2 max: ? PA V2 max: ?TR max azeem: ?38.6 cm/sec ?61.9 cm/sec ? 297.5 cm/sec ?TV max PG: ? PA max P.5 mmHg TR max PG: ?0.60 mmHg ?37.1 mmHg Electronically signed by: Lian Simms MD 03/12/2020 10:54 AM Resulting Agency Comment I Procedure Note Rafa Simms MD - 03/12/2020 Adult Echocardiogram + ----- ----+ :Name: PADMINI RIOS Study Date: 03/11/2020 Status: IN;MAIN: : [id number]: : Weight: 191 lbBP: 104/65 mmHg: :: 1940 Gender: Male BSA: 2.1 m2: :Reason For Study: CABG: :Ordering Physician: Mendez,: :Rafa: :: :Performed By: Maria Esther Novak,: :RDCS: + ----- ----+ Procedure A two-dimensional transthoracic echocardiogram with color flow and Dopplerwas performed. Left Ventricle The left ventricle is mildly dilated. There is normal left ventricularwall thickness. Left ventricular systolic function is severely reduced. EF is25- 30%. There is severe global hypokinesis of the left ventricle. There isno thrombus. Right Ventricle The right ventricle is normal in size and function. The rightventricular systolic function is mildly reduced. Atria The left atrium is mildly dilated. Right atrial size is normal. Mitral Valve The mitral valve is normal in structure and function. There is mild to moderate mitral regurgitation. Tricuspid Valve The tricuspid valve is normal. There is mild tricuspid regurgitation.'Mild' pulmonary hypertension. Aortic Valve The aortic valve is trileaflet. Aortic valve is moderately calcifiedwith moderate restricted motion. There is moderate aortic stenosis. Aortic valve peak velocity is 3 m/s Aortic valve mean gradient is 21 Aortic valve area is 1.2 cm2. Mild aortic regurgitation. Pulmonic Valve The pulmonic valve is not well visualized. Great Vessels The aortic root is normal size. The pulmonary artery is not wellvisualized, but is probably normal size. IVC collapses normally with inspiration. Pericardium There is no pericardial effusion. Diastology Diastolic dysfunction, Grade III (restrictive pattern), consistent with markedly increased left atrial pressure. Interpretation Summary The left ventricle is mildly dilated. Left ventricular systolic function is severely reduced. EF is 25-30% The right ventricular systolic function is mildly reduced. There is moderate aortic stenosis. Aortic valve peak velocity is 3 m/s Aortic valve mean gradient is 21 Aortic valve area is 1.2 cm2. There is mild to moderate mitral regurgitation. There is mild tricuspid regurgitation. 'Mild' pulmonary hypertension. There is no pericardial effusion. + + :Measurements with Normals: : (0.6-1.2 LVIDd: (3.5-5.7 Ao root diam:(2.0-3.7 : :IVSd: 1.1 cmcm) 6.0 cm cm) 3.4 cm cm): :LVPWd: (0.6-1.1 LVIDs: (3.1-4.6 LA dimension:(1.9-4.0 : :1.3 cm cm) 5.7 cm cm) 4.6 cm cm): + + MMode/2D Measurements & Calculations FS: 4.3 % Ao root area: 9.1 cm2 LVOT diam: 2.3 cm EDV(Teich): 178.6 ml LVOT area: 4.2 cm2 ESV(Teich): 161.3 ml Doppler Measurements & Calculations MV E max azeem: Ao V2 max: AI max azeem: LV V1 max P.0 cm/sec 262.0 cm/sec 256.0 cm/sec 3.1 mmHg MV A max azeem: Ao max PG: AI max P.2 mmHgLV V1 meanP.0 cm/sec 28.2 mmHg AI dec slope: 2.0 mmHg MV E/A: 6.8 Ao V2 mean: 141.0 cm/sec2 LV V1 max: 191.5 cm/sec AI P1/2t: 531.8 msec88.1 cm/sec Ao mean PG: LV V1 mean: 16.5 mmHg 65.4 cm/sec Ao V2 VTI: 53.5 cm LV V1 VTI: 18.1cm NGUYỄN(I,D): 1.4 cm2 NGUYỄN(V,D): 1.4 cm2 SV(LVOT): 75.2 ml TV V2 max: PA V2 max: TR max azeem: 38.6 cm/sec 61.9 cm/sec 297.5 cm/sec TV max PG: PA max P.5 mmHg TR max P.60 mmHg 37.1 mmHg Electronically signed by: Lian Simms MD 03/12/2020 10:54 AM us Rafa Simms MD CV ECHO PROCEDURES Final Result * COVID-19 Coronavirus RNA (03/11/2020 5:32 PM CDT) Pathologist [facility] [place] COVID-19 Coronavirus RNA NOT DETECTED [facility] Comment: A negative result does not rule out the possibility of COVID-19 and should not be used as the sole basis for patient management decisions. Coronavirus (COVID-19) Interp SEE COMMENT [facility] Coronavirus (COVID-19) Results called to [facility] Performing Lab [facility] 03/11/2020 5:32 PM CDT 03/11/2020 7:03 PM CDT Narrative [facility] - 03/13/2020 1:21 AM CDT CABG [id number] No No Yes No No No No Urgent <12hr procedure Resulting Agency Comment IN us Mariana Moralez MEDICAL SOCIOLOGIST LAB MICROBIOLOGY - GENERAL ORDERABLES Final Result [facility] [address] [place] [address], [facility] [phone] * ECG 12 lead (03/11/2020 4:55 PM CDT) Pathologist [facility] [place] Ventricular Rate EKG/Min 66 BPM [facility] Atrial Rate 66 BPM [facility] MS-Interval (MSEC) 214 ms [facility] QRS-Interval (MSEC) 112 ms [facility] QT-Interval (MSEC) 452 ms [facility] QTc 473 ms [facility] P [place] 76 degrees [facility] R [place] -21 degrees [facility] T [place] 143 degrees [facility] Diagnosis Sinus rhythm with 1st degree A-V block with frequent Premature ventricular complexes in bigeminy pattern Poor R progression NSST changes No previous ECGs available [facility] 03/11/2020 4:55 PM CDT 03/12/2020 11:13 AM CDT Narrative Resulting Agency Comment INPAT us Rafa Simms MD ECG ORDERABLES Final Res ult Performing Organization Address [facility] Co de Phone Number [address] * Magnesium (03/11/2020 4:33 PM CDT) Pathologist [facility] [place] Magnesium 1.9 1.6 - 2.6 mg/dL [facility] Comment: Magnesium sulfate therapy: ??3.0-9.1 mg/dL 03/11/2020 4:33 PM CDT 03/11/2020 4:38 PM CDT Narrative [facility] - 03/11/2020 5:00 PM CDT Resulting Agency Comment IN us Mariana Moralez NP LAB BLOOD ORDERABLES Final Result Performing Organization Address City/[facility]/ZIP Co de Phone Number [address] [phone] * (ABNORMAL) Comprehensive metabolic panel (03/11/2020 4:33 PM CDT) [facility] Sodium 136 135 - 145 mmol/L [facility] Potassium 5.0 3.3 - 5.1 mmol/L [facility] Chloride 95(L) 96 - 108 mmol/L [facility] Carbon Dioxide 29 22 - 32 mmol/L [facility] Anion Gap 12 7 - 16 [facility] Glucose 130(H) 70 - 100 mg/dL [facility] BUN 24 8 - 25 mg/dL [facility] Creatinine 1.2 0.5 - 1.3 mg/dL [facility] Comment: NOTE: Estimated GFR (Cockroft-Gault) will NOT be calculated unless patient Height and Weight were entered. Also, Kidney Disease Stage (GFR) and Estimated GFR (Cockroft-Gault) will NOT be calculated if Creatinine result is <0.2. Kidney Disease Stage 62 mL/MIN [facility] Comment: NOTE; ??The GFR is an estimated value using the creatinine, sex, age, and race of the patient. THE Estimated Kidney Disease GFR is validated for AGES 18-70 YEARS STAGE ?mL/Min ?DESCRIPTION ??1 ?90 mL/min or more ?Normal or elevated GFR ??2 ? 60-89 mL/min ?Mildly decreased GFR ??3 ? 30-59 mL/min ?Moderately decreased GFR ??4 ? 15-29 mL/min ?Severely decreased GFR ??5 ? <15 mL/min ? Kidney failure or on dialysis Est GFR (Cockcroft-G) 57 ml/MIN [facility] Comment: Estimated GFR(Cockroft-Gault)is used to calculate patient medication dosage Calcium 9.6 8.6 - 10.3 mg/dL [facility] Total Protein 7.0 6.4 - 8.3 g/dL [facility] Albumin 4.2 3.5 - 5.0 g/dL [facility] Globulin 2.8 2.3 - 3.5 gm/dL [facility] Albumin/Globulin Ratio 1.5 1.1 - 1.8 [facility] Total Bilirubin 1.2 0.0 - 1.2 mg/dL [facility] AST 41(H) 0 - 40 U/L [facility] ALT 14 0 - 41 U/L [facility] Alkaline Phosphatase 58 40 - 129 U/L [facility] 03/11/2020 4:33 PM CDT 03/11/2020 4:38 PM CDT Narrative [facility] - 03/11/2020 5:00 PM CDT Resulting Agency Comment IN Mariana Moralez NP LAB BLOOD ORDERABLES Final Result Performing Organization Address City/[facility]/ZIP Co de Phone Number [address] [phone] * aPTT (03/11/2020 4:33 PM CDT) APTT 36 23 - 38 SECONDS [facility] Comment: New reference ranges in use 02-20-2020. 03/11/2020 4:33 PM CDT 03/11/2020 4:38 PM CDT Narrative [facility] - 03/11/2020 4:57 PM CDT Resulting Agency Comment IN Rafa Simms MD LAB BLOOD ORDERABLES Sonali l Result [address] [phone] * (ABNORMAL) Protime-INR (03/11/2020 4:33 PM CDT) PT 15.2(H) 12.3 - 15.1 SECONDS [facility] Comment: New reference ranges in use 02-20-2020. INR 1.14 [facility] Comment: Recommended Therapeutic range for Oral Anticoagulant Therapy No anti-coagulation therapy ? Normal Range: ?0.8-1.4 Anti-coagulation therapy ? Low intensity therapy ?2.0-3.0 ? High intensity therapy ?? 2.5-3.5 Critical Value ? Greater than or equal to 5.0 Patients should be monitored for serious bleeding. 03/11/2020 4:33 PM CDT 03/11/2020 4:38 PM CDT Narrative [facility] - 03/11/2020 4:57 PM CDT Resulting Agency Comment IN us Rafa Simms MD LAB BLOOD ORDERABLES Sonali hu Result [facility] [address] [place] [address], [facility] [phone] * (ABNORMAL) CBC with auto differential (03/11/2020 4:33 PM CDT) WBC 9.1 3.8 - 9.9 X10 3/ul [facility] RBC 4.05(L) 4.30 - 5.80 x10 6/ul [facility] Hemoglobin 12.1(L) 13.0 - 17.5 g/dL [facility] Hct 36.4(L) 38.9 - 50.3 % [facility] MCV 89.9 81.3 - 96.4 fl [facility] MCH 29.9 27.1 - 33.3 pg [facility] MCHC 33.2 32.3 - 35.7 g/dl [facility] RDW 14.0 11.1 - 14.9 % [facility] Plt Count 169 150 - 400 x10 3/ul [facility] MPV 11.6 9.1 - 12.3 fl [facility] Neut % 72.4 % [facility] Immature Gran % 0.2 % [facility] Lymph % 12.8 % [facility] Shannon % 12.7 % [facility] Eos % 1.5 % [facility] AUTO BASO % 0.4 % [facility] NEUTROPHIL ABS # 6.6(H) 1.7 - 6.5 x10 3/ul [facility] Immature Gran # 0.0 0.0 - 0.1 x10 3/ul [facility] Absolute Lymphs (auto) 1.2 0.8 - 3.3 x10 3/ul [facility] Absolute Monos (auto) 1.2(H) 0.2 - 0.8 x10 3/ul [facility] Absolute Eos (auto) 0.1 0.0 - 0.5 x10 3/ul [facility] BASOPHIL ABS # 0.0 0.0 - 0.1 x10 3/ul [facility] Nucleat RBC Rel Count 0.0 #/100WBC [facility] NRBC abs 0.00 0.00 - 0.01 x10 3/ul [facility] Absolute Neutrophils 6,600 200 - 8,000 /ul [facility] 03/11/2020 4:33 PM CDT 03/11/2020 4:38 PM CDT Narrative [facility] - 03/11/2020 4:43 PM CDT Resulting Agency Comment IN Mariana Moralez MEDICAL SOCIOLOGIST LAB BLOOD ORDERABLES Final Result [facility] [address] [place], [place] [address] [phone] documented in this encounter Visit Diagnoses Not on filedocumented in this encounter Care Teams Supervisor Finishing Room Relationship Specialty Start Date End Date Floyd Mckinney MD [address] [place] [address] PCP - General 03/11/20 documented as of this encounter
--- OUTSIDE RECORDS SUMMARY | 2024-05-22 02:17 | XMS_ITS | Encounter Summary ---
Author Organization [facility] Healthcare Address [address] [place] [address] Care Team Providers Care Long Term Care Administrator Name Role Phone Floyd Mckinney MD Primary Care Provider [phone] Jarvis Burdick MD Unavailable [phone] Reason for Visit * Auth/Cert Specialty Diagnoses / Procedures Referred By David t Referred To Contact Diagnoses DILATED CARDIOMYOPATHY Procedures MS INSJ/RPLCMT PERM DFB W/TRNSVNS LDS 1/DUAL CHMBR PLACEMENT AUTOMATIC IMPLANTABLE CARDIOVERTER DEFIBRILLATOR/INTERNAL CARDIOVERTER DEFIBRILLATOR; SINGLE CHAMBER Referral ID Status Reason Start Date Expiration Date Visits Re quested Visits Authorized [id number] 1 1 Encounter Details Date Type Department Care Team (Late st Contact Info) Description 12/30/2020 12:45 PM CDT - 12/30/2020 2:30 PM CDT Surgery [facility] OR [address] [place] [address] Mehran Swann MD [address] [place] [id number] PLACEMENT AUTOMATIC IMPLANTABLE CARDIOVERTER DEFIBRILLATOR/INTERNAL CARDIOVERTER DEFIBRILLATOR SINGLE CHAMBER Surgery Details Date/Time Status Location OR Service Patient Class Case Class Case Type Trauma Case? 12/30/2020 12:45 PM Posted [facility] OR 18 Cardiothoracic Outpatient in Bed Elective Panel 1 Procedure LRB Anes Op Region Wound Class Comments PLACEMENT AUTOMATIC IMPLANTABLE CARDIOVERTER DEFIBRILLATOR/INTERNAL CARDIOVERTER DEFIBRILLATOR SINGLE CHAMBER N/A General Chest Class I - Clean FLUOROSCOPY METRONIC Surgeon Surgeon Role Service Panel Mehran Swann MD Primary Cardiothoracic 1 documented in this encounter Social History Tobacco [...] on file Legal Sex Male 1:00 AM DISK RECOATER Gender Identity Not on file Sexual Orientation Not on file documented as of this encounter Last Filed Vital Signs Vital Sign Reading Time Taken Comments Blood Pressure 120/69 12/30/2020 10:44 AM CDT Pulse 57 12/30/2020 10:44 AM CDT Temperature 36.2 ??C (97.1 ??F) 12/30/2020 10:44 AM C DT Respiratory Rate 16 12/30/2020 10:44 AM CDT Oxygen Saturation 97% 12/30/2020 10:44 AM CDT Inhaled Oxygen Concentration - - Weight - - Height - - Body Mass Index - - documented in this encounter Discharge Summaries * Ольга De Santiago CRNFA - 12/31/2020 11:41 AM CDT Inpatient Discharge Summary BRIEF OVERVIEW Admitting Provider: Mehran Swann MD Discharge Provider: Mehran Swann MD Primary Care Physician at Discharge: Floyd Mckinney MD [phone] Admission Date: 12/30/2020 Discharge Date: 12/31/2020 Admission Location: [facility] Problems/Diagnoses: Principal Problem: Coronary artery disease (CAD) [...] Pertinent Test Results: Recent Labs Lab Units 12/31/2061712/26/20 1013 WBC K/cumm 7.2 7.8 HEMOGLOBIN g/dL [...] M.D. ?? BC T: ?? Report ID: [id number] Reading Location: [place] [address] Discharge Details Physical Exam at Discharge: Discharge [...] Specialty: Cardiothoracic Surgery, General Surgery, Thoracic Surgery [facility] - [address] [address] Next Steps: Follow up on 01/20/2021 Instructions: at 10:40 am for incision check Floyd Mckinney MD Specialty: Internal Medicine, Pediatrics Relationship: PCP - General [address] [facility] [address] Next Steps: Follow up Cosigned by Mehran [...] 3. You cough up blood. Call Surgeon [phone] if: 1. Your arm or legs feels [...] to know about your pacemaker: 1. Your Hogshead Filler will check you pacemaker about every three [...] Everywhere. * Implantable Cardioverter Defibrillator (Discharge Care) (Kosovan) documented in this encounter Medications at Time [...] of this patient. Job ID/VF Job ID: [id number] * Mehran Swann MD - 12/23/2020 12:00 [...] of this patient. Job ID/VF Job ID: [id number] documented in this encounter Miscellaneous Notes * [...] and mental status changes, document and update social work lecturer and MD as needed 4. Provide in [...] 12/31/2020852 by Hakeem Collins RN Outcome: Progressing Goals: [...] and mental status changes, document and update social work lecturer and MD as needed 4. Provide in [...] MD - Primary Anesthesiologist: Cali Barriga MD TERRA COTTA ROOFER HELPER: Vanna Glasgow CRNA Carbon Furnace Operator Helper: Lisa Diehl RN Scrub: Ashly Winslow CRNFA Line Welder: Annie Lovelace ST DATE OF SURGERY : 12/30/2020 Preoperative Diagnosis: [...] Implant Name Type Inv. Item Serial No. Head Machine Feeder Lot No. LRB No. Used Action MEDTRONIC CARDIAC RHYTHM [id number] [id number] SPRINT QUATTRO SECURE 62CM TRIPOLAR SCREW IN EXTENDABLE - [id number] - [id number] Other - see comments MEDTRONIC CARDIAC RHYTHM MGMT [id number] Sprint Quattro Secure 62cm Tripolar Screw In Extendable [id number] Medtronic Inc N/A 1 Implanted [employer] INC [id number] PACEMAKER CARDIAC [place] VR [id number] - [id number] - [id number] MED[employer]IC INC [id number] PACEMAKER CARDIAC [place]ALT VR [id number] Medtronic Inc N/A 1 Implanted Blood/Blood Products [...] of single-chamber AICD which is Medtronic generator [id number] with serial number [id number]. The lead is a Medtronic 62-cm lead with serial number [id number] with threshold of 1 mV and impedance of 323 ohms and an R-wave sensing of 15.4 mV. Surgeon Mehran Swann MD. Senior Solutions Workflow Consultant DARRELL Kolb. Anesthesia General with an LMA [...] the recovery area. Job ID/VF Job ID: [id number] * Pre-Procedure Instructions - Ashtyn Gonzalez RN - 12/26/2020 10:49 AM CDT We are pleased that you and your doctor have chosen [facility] for your surgery. We hope that the [...] of surgery ?? Use no make-up, nail amharic, lotions, oils or powders on your skin. [...] 2:51 PM CDT PLACEMENT AUTOMATIC IMPLANTABLE CARDIOVERTER DEFIBRILLATOR/CHAIR POST MACHINE OPERATOR AL CARDIOVERTER DEFIBRILLATOR 12/30/2020 1:01 PM CDT DILATED CARDIOMYOPATHY POC BLOOD GAS AND CHEMISTRIES, VENOUS Routine 12/30/2020 11:32 AM CDT documented in this encounter Results * POCT glucose (12/31/2020 11:13 AM CDT) [facility] Glucose, POC 153 70 - 199 mg/dL [facility] Glucose comment 1 Use This Result [facility] Blood specimen (specimen) 12/31/2020 11:13 AM CDT 12/31/2020 11:13 AM CDT us Mehran Swann MD LAB POCT ORDERABLES - DEVICE F inal Result [facility] [address] [facility] Department [place] [address] * X-ray chest 2 views (12/31/2020 7:46 [...] 7:56 AM - Electronically signed by Roman HOLLIS D: ??12/31/2020 7:56 AM T: Report ID: [id number] [place] Location: ??[id number] Procedure Note Roman Byrne MD - 12/31/2020 [...] 7:56 AM - Electronically signed by Roman HOLLIS T: Report ID: [id number] Reading Location: [place] [address] Mehran Swann MD IMG XR PROCEDURES Final Result * POCT glucose (12/31/2020 7:13 AM CDT) Glucose, POC 92 70 - 199 mg/dL [facility] Glucose comment 1 Use This Result [facility] Blood specimen (specimen) 12/31/2020 7:13 AM CDT 12/31/2020 7:13 AM CDT us Mehran Swann MD LAB POCT ORDERABLES - DEVICE F inal Result [facility] [address] [facility] Department [place] [address] * eGFR (12/31/2020 6:18 AM CDT) eGFR 64 mL/min/1.7 3 m2 [facility] Comment: Interpretive Data Reference Interval Normal ?>/= [...] LAB BLOOD ORDERABLES Final Res ult [facility] [address] [facility] [place] [address] * Differential, auto (12/31/2020 6:18 AM CDT) Neutrophil abs 5.3 1.7 - 6.5 K/cumm [facility] Imm gran abs 0.0 0.0 - 0.1 K/cumm [facility] Lymphocyte abs 0.9 0.8 - 3.3 K/cumm [facility] Monocyte abs 0.8 0.2 - 0.8 K/cumm [facility] Eosinophil abs 0.1 0.0 - 0.5 K/cumm [facility] Basophil abs 0.0 0.0 - 0.1 K/cumm [facility] Neutrophil pct 74.1 % [facility] Comment: Interpretive Data Percent cell count reference ranges are not reported, since discordance with absolute values may lead to misinterpretation of CBC data. Current Interpretive Data was last revised on 2017. Imm gran pct 0.4 % [facility] Comment: Interpretive Data Percent cell count reference ranges are not reported, since discordance with absolute values may lead to misinterpretation of CBC data. Current Interpretive Data was last revised on 2017. Lymphocyte pct 12.8 % [facility] Comment: Interpretive Data Percent cell count reference ranges are not reported, since discordance with absolute values may lead to misinterpretation of CBC data. Current Interpretive Data was last revised on 2017. Monocyte pct 11.0 % [facility] Comment: Interpretive Data Percent cell count reference ranges are not reported, since discordance with absolute values may lead to misinterpretation of CBC data. Current Interpretive Data was last revised on 2017. Eosinophil pct 1.3 % [facility] Comment: Interpretive Data Percent cell count reference ranges are not reported, since discordance with absolute values may lead to misinterpretation of CBC data. Current Interpretive Data was last revised on 2017. Basophil pct 0.4 % [facility] Comment: Interpretive Data Percent cell count reference ranges are not reported, since discordance with absolute values may lead to misinterpretation of CBC data. Current Interpretive Data was last revised on 2017. Blood specimen (specimen) 12/31/2020 6:18 AM CDT 12/31/2020 6:53 AM CDT Mehran Swann MD LAB BLOOD ORDERABLES Final Res ult Performing Organization Address [facility] de Phone Number [place] [phone] [facility] Department [place] [address] * Basic metabolic panel (12/31/2020 6:18 AM CDT) Sodium 138 135 - 145 mmol/L [facility] Potassium, pl 4.7 3.3 - 4.9 mmol/L [facility] Chloride 102 97 - 110 mmol/L [facility] CO2 27 22 - 32 mmol/L [facility] Anion gap 9 2 - 15 mmol/L [facility] BUN 21 8 - 25 mg/dL [facility] Creatinine 1.10 0.80 - 1.30 mg/dL [facility] Glucose 108 70 - 199 mg/dL [facility] Comment: Interpretive Data Fasting glucose >/= 126 [...] 2017. Calcium 9.1 8.5 - 10.3 mg/dL [facility] Blood specimen (specimen) 12/31/2020 6:18 AM CDT 12/31/2020 6:52 AM CDT Mehran Swann MD LAB BLOOD ORDERABLES Final Res ult Performing Organization Address [facility]/State/ZIP Co de Phone Number [address] [place] [address] * (ABNORMAL) CBC with auto differential (12/31/2020 6:18 AM CDT) [facility] WBC 7.2 3.8 - 9.9 K/cumm [facility] Hgb 11.3(L) 13.0 - 17.5 g/dL [facility] Hct 35.6(L) 38.9 - 50.3 % [facility] Plt 111(L) 150 - 400 K/cumm [facility] MPV 12.1 9.1 - 12.3 fL [facility] RBC 3.76(L) 4.30 - 5.80 M/cumm [facility] MCV 94.7 81.3 - 96.4 fL [facility] MCH 30.1 27.1 - 33.3 pg [facility] MCHC 31.7(L) 32.3 - 35.7 g/dL [facility] RDW CV 14.6 11.1 - 14.9 % [facility] RDW SD 50.1(H) 35.7 - 48.1 fL [facility] NRBC abs 0.00 0.00 - 0.01 K/cumm [facility] Blood specimen (specimen) 12/31/2020 6:18 AM CDT 12/31/2020 6:53 AM CDT Mehran Swann MD LAB BLOOD ORDERABLES Final Res ult Performing Organization Address [facility]/State/[facility] Co de Phone Number [address] [place] [employer] [place] [address] * POCT glucose (12/30/2020 7:25 PM CDT) [facility] Glucose, POC 189 70 - 199 mg/dL [facility] Glucose comment 1 Use This Result [facility] Blood specimen (specimen) 12/30/2020 7:25 PM CDT 12/30/2020 7:25 PM CDT Mehran Swann MD LAB POCT ORDERABLES - DEVICE F inal Result Performing Organization Address [facility] de Phone Number [address] [address] * POCT glucose (12/30/2020 4:43 PM CDT) Glucose, POC 134 70 - 199 mg/dL [facility] Glucose comment 1 Use This Result [facility] Glucose comment 2 Will Notify Nurse [facility] Blood specimen (specimen) 12/30/2020 4:43 PM CDT 12/30/2020 4:43 PM CDT Mehran Swann MD LAB POCT ORDERABLES - DEVICE F inal Result Performing Organization Address [facility] de Phone Number SAMAN[address] [address] * POCT glucose (12/30/2020 3:29 PM CDT) Glucose, POC 132 70 - 199 mg/dL [facility] Glucose comment 1 Use This Result [facility] Blood specimen (specimen) 12/30/2020 3:29 PM CDT 12/30/2020 3:29 PM CDT Mehran Swann MD LAB POCT ORDERABLES - DEVICE F inal Result Performing Organization Address [facility] de Phone Number [address] [address] * X-ray chest 1 view (Portable) (12/30/2020 [...] Electronically signed by Rodriguez Parisi D.O. PS D: ??12/30/2020 3:23 PM T: Report ID: [id number] [place] Location: ??[id number] Procedure Note Rodriguez Parisi DO - 12/30/2020 EXAM DESCRIPTION: XR CHEST [...] 3:23 PM - Electronically signed by Rodriguez KUMAR T: Report ID: [id number] [place] Location: [id number] Mehran Swann MD IMG XR PROCEDURES Final Result * FL Fluoroscopy < 1 Hour (12/30/2020 2:51 PM CDT) Narrative BLAKE_MICHELLE_THOMAS_MHE - 12/30/2020 2:53 PM CDT The images from this study are not interpreted by Radiology. ??Please refer to the physician's procedure / OR operative note. Mehran Swann MD IMG FLUOROSCOPY PROCEDURES Fin al Result RAD_MICHELLE_MHB_MHE * (ABNORMAL) POC Blood Gas and Chemistries, Venous - (12/30/2020 11:32 AM CDT) pH,bisi POC 7.40 7.32 - 7.43 [facility] pCO2, bisi POC 45 40 - 50 mmHg [facility] pO2,bisi POC 33 mmHg [facility] Comment: Interpretive Data No reference range established. Current interpretive data was last revised 2019. HCO3, bisi (Calc) POC 27 20 - 30 mmol/L [facility] Base excess, bisi POC 2 mmol/L [facility] Comment: Interpretive Data No reference range established. Current interpretive data was last revised 2019. Hemoglobin, bisi POC 11.9(L) 13.0 - 17.5 g/dL [facility] Hematocrit, bisi POC 35.0(L) 38.9 - 50.3 % [facility] Sodium, bisi POC 141 135 - 145 mmol/L [facility] Potassium, bisi POC 4.6 3.3 - 4.9 mmol/L [facility] Comment: Interpretive Data Unable to assess hemolysis, Invitro hemolysis causes falsely elevated potassium. Current interpretive data was last revised on 2019. Glucose, bisi POC 116 70 - 199 mg/dL [facility] Blood specimen (specimen) 12/30/2020 11:32 AM CDT 12/30/2020 11:32 AM CDT us Mehran Swann MD LAB POCT ORDERABLES - DEVICE F inal Result [facility] [address] [facility] Department [place] [address] documented in this encounter Visit Diagnoses Not on filedocumented in this encounter Admitting Diagnoses Diagnosis Coronary [...] 1130, For 1 dose, Pre-Op, Indications: Pre-Emptive AnalgesiaIndications:Pre -Emptive Analgesia Given 12/30/2020 11:25 AM CDT 975 mg bupivacaine (MARCAINE) 0.25 % (2.5 mg/mL) preservative free injection As needed, Starting on Tue12/30/20 at 1435, Intra-Op Given 12/30/2020 2:35 PM CDT 10 mL Chest ceFAZolin (ANCEF) 1,000 mg in sodium chloride 0.9% 500 mL solution As needed, Starting on Tue12/30/20 at 1435, Intra-Op Given 12/30/2020 2:35 PM CDT 120 mL Surgical Site ceFAZolin (ANCEF) 2,000 mg/20 mL in sterile water (premix) 2,000 mg 2,000 mg, intravenous, at 400 mL/hr, Administer over 3 Minutes, Every 8 hours, First dose on Tue12/30/20 at 2130, For 2 doses, Start 8 hours after pre-op dose., Indications: Prophylaxis, SurgicalIndications:Prop hylaxis, Surgical New Bag 12/31/2020 5:18 AM CDT [...] 7:36 PM CDT 125 mL/hr 125 mL/hr lidocaine (XYLOCAINE) 10 mg/mL (1 %) injection As needed, Starting on Tue12/30/20 at 1447, Intra-Op, Indications: Administration of Local AnesthesiaIndications:Administration of Local Anesthesia Given 12/30/2020 2:47 PM CDT 10 mL metFORMIN XR (GLUCOPHAGE XR) tablet 1,000 mg [...] Pre-Emptive Analgesia 1125 (Given - Provider: Marcela Ford RN) ceFAZolin (ANCEF) 2,000 mg/20 mL in [...] (New Bag - Provider: Jackson Mahmood RN) 517 (New Bag - Provider: Jackson Mahmood RN) diazePAM (VALIUM) tablet 2 mg (COMPLETED) 2 mg, oral, Once, On Tue12/30/20 at 1130, For 1 dose, Pre-Op 1134 (Given - Provider: Marcela Ford RN) finasteride (PROSCAR) tablet 5 mg 5 mg, oral, Daily, First dose on Tue12/30/20 at 1630, Do not crush, break, or open. 1811 (Given - Provider: Jose Garcia RN) 843 (Given - Provider: Hakeem Collins RN) heparin 5,000 unit/mL injection 5,000 Units 5,000 Units, subcutaneous, Every 12 hours scheduled, First dose on Tue12/30/20 at 2100, Recovery (CV), Indications: Deep Vein Thrombosis Prevention 2011 (Given - Provider: Jackson Mahmood RN) 843 (Given - Provider: Hakeem Collins RN) metFORMIN XR (GLUCOPHAGE XR) tablet 1,000 mg 1,000 mg, oral, 2 times daily, First dose on Tue12/30/20 at 2100, Do not crush, chew, cut, dissolve, open or otherwise manipulate tablet/capsule. 2011 (Given - Provider: Jackson Mahmood RN) 843 (Given - Provider: Hakeem Collins RN) metoprolol XL (TOPROL-XL) extended release tablet 12.5 mg 12.5 mg, oral, Daily, First dose on Tue12/31/20 at 0900, Tablets that are scored may be split, but do not crush, chew, dissolve, open or otherwise manipulate tablet/capsule. 843 (Given - Provid er: Hakeem Collins RN) [...] Surgical 1229 (New Bag - Provider: Radha Oliva, DEANA) Continuous Medication Order 12/29/2020 12/30/2020 12/31/2020 Lactated Ringer's (LR) infusion 125 mL/hr, intravenous, Continuous, Starting on Tue12/30/20 at 1545, Phase I 1550 (Continue to Inpatient Floor - Provider: Jose Garcia RN)1551 (Continue to Inpatient Floor - Provider: Jose Garcia, RN)1633 (Restarted - Provider: Jackson Mahmood, DEANA)1936 (New [...] Count Last Ordered Date First Ordered Date ceFAZolin (ANCEF) 2,000 mg/2 0 mL in [...] (NORMODYNE,TRANDAT E) injection 5 mg 1 12/30/2020 meperidine (DEMEROL) preserv ative free [...] 12/31/2020 documented in this encounter Care Teams Long Term Care Administrator Relationship Specialty Start Date End Date Floyd Mckinney MD [address] [place] [address] PCP - General 03/11/20 Jarvis Burdick MD [address] [place] [address] Consulting Physician Cardiovascular Disease 12/26/20 documented as of this encounter
--- OUTSIDE RECORDS SUMMARY | 2024-05-22 02:17 | XMS_ITS | Encounter Summary ---
Author Organization [facility] Healthcare Address [address] [place] [address] Care Team Providers Care Seam Steamer Name Role Phone Floyd Mckinney MD Primary Care Provider [phone] Jarvis Burdick MD Unavailable [phone] Reason for Visit * Auth/Cert Specialty Diagnoses / Procedures Referred By David t Referred To Contact Diagnoses DILATED CARDIOMYOPATHY Procedures MS INSJ/RPLCMT PERM DFB W/TRNSVNS LDS 1/DUAL CHMBR PLACEMENT AUTOMATIC IMPLANTABLE CARDIOVERTER DEFIBRILLATOR/INTERNAL CARDIOVERTER DEFIBRILLATOR; SINGLE CHAMBER Referral ID Status Reason Start Date Expiration Date Visits Re quested Visits Authorized [id number] 1 1 Encounter Details Date Type Department Care Team (Late st Contact Info) Description 12/30/2020 1:17 PM CDT Anesthesia Event [address] [address] Cali Barriga MD [address] [place] [id number] Dago Costa DO [address] [place] [id number] Anesthesia Record Procedure Summary Procedure Name Responsible Anesthesiologist Anesthesia Start Time Anesthesia Stop Time PLACEMENT AUTOMATIC IMPLANTABLE CARDIOVERTER DEFIBRILLATOR/INTERNAL CARDIOVERTER DEFIBRILLATOR SINGLE CHAMBER (Chest) Cali Barriga MD 12/30/20 1317 12/30/20 1505 Events Date Time Event Comment 12/30/2020 1316 In Room 1317 An Start 1317 An Start Data 1322 An Induction The patient was reevaluated immediately before moderate or deep sedation use and before anesthesia induction. 1324 An LMA 1331 Anesthesia Ready 1340 Proc Start 1452 Proc Fin 1458 An Extubation 1500 an stop data 1501 Out of Room 1505 An Stop 1505 Handoff to RN I completed my handoff to the receiving nurse during which we: 1. Patient identified 2. Responsible provider identified 3. Pertinent medical history reviewed 4. Procedure type and surgical course discussed 5. Intraoperative anesthetic management and any significant issues discussed 6. Expectations and concerns for postop period discussed 7. Questions solicited from receiving nurse 8. Patient disposition at the time of handoff: No value filed. 1531 Release from care Meds Name Total fentaNYL 50 mcg/mL PF 100 mcg lidocaine (cardiac) syringe 2 % 3 mL propofol 10 mg/ml 100 mg phenylephrine (SEAN-SYNEPHRIN E) 25,000 mcg in sodium chloride 0.9% 250 mL (100 mcg/mL) infusion 3.9 mg ceFAZolin (ANCEF) 2,000 mg/20 mL in ster ile water (premix) 2,000 mg 2,000 mg ondansetron PF 4 mg LR 0 mL * Agents Name O2% N2O O2 N2O Air Sevoflurane Inspired Sevoflurane * Blood No blood administrations on file. Lines, Drains, and Airways Type Details Placement Removal Peripheral IV Placement Date: 12/30/20; Placement Time: 1150; Catheter Size: 18 G; Orientation: Anterior, Left; Location: Forearm; Site Prep: Chlorhexidine; Insertion Attempts: 1; Patient Tolerance: Tolerated well; Removal Date: 12/31/20; Removal Reason: Discharge 12/30/20 1150 by Radha Oliva RN 12/31/20 0000 by Hakeem Collins RN RETIRED Surgical Site 12/30/20; 1350; Le ft; Chest; dermabond applied to chest incision; 04/24/24 (Retired LDA, Removed/Completed by Tepha with LDA Utility); 1213 (Retired LDA, Removed/Completed by Tepha with LDA Utility) 12/30/20 1350 by Lisa Diehl RN 04/24/24 1213 by Discharge Provider, Automatic documented in this encounter Social History Tobacco Use Types Packs/Day Years Used Date Smoking Tobacco: Former Cigarettes 0.3 30 1 969 - 1998 Cigars Smokeless Tobacco: Never AUDIT-C Answer Date Recorded Q1: How often [...] on file 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 Gender Identity Not on file Sexual Orientation Not on file documented as of this encounter OR Notes * Anesthesia Postprocedure Evaluation - Leora Ramirez MD - 12/30/2020 3:30 PM CDT Patient: Padmini Amador Procedure Summary Date: 12/30/20 Room / Location: [facility] 18 / [facility] Anesthesia Start: 1317 Anesthesia Stop: 1505 Procedure: PLACEMENT AUTOMATIC IMPLANTABLE CARDIOVERTER DEFIBRILLATOR/INTERNAL CARDIOVERTER DEFIBRILLATOR SINGLE CHAMBER (N/A Chest) Diagnosis: (DILATED CARDIOMYOPATHY) Surgeons: Mehran Swann MD Responsible Provider: Cali Barriga MD Anesthesia Type: general ASA Status: 4 Anesthesia Type: general Last vitals BP 129/75 (BP Location: Right arm, Patient Position: HOB 30 degrees) Pulse 64 Temp 36.7 ??C (98??F) (Temporal) Resp 18 SpO2 95% Anesthesia Post Evaluation Patient location during evaluation: PACU Patient participation: complete - patient participated Level of consciousness: fully awake Pain management: adequate Airway patency: adequate Evidence of recall: no Cardiovascular status: acceptable Respiratory status: acceptable Hydration status: acceptable Pt is: normothermic Nausea/Vomiting status: none No complications documented. * Anesthesia Preprocedure Evaluation - Cali Barriga MD - 12/30/2020 11:56 AM CDT Images from the original note were not included. Anesthesia Evaluation Padmini Amador is a 80 y.o. male Procedure(s): PLACEMENT AUTOMATIC IMPLANTABLE CARDIOVERTER DEFIBRILLATOR/INTERNAL CARDIOVERTER DEFIBRILLATOR SINGLE CHAMBER * No Diagnosis Codes entered * HISTORY Past Medical History Information obtained from: patient and chart. Cardiovascular + CHF (EF recorded as 20-25%) Endocrine / Other + Diabetes mellitus There is no problem list on file for this patient. Past Medical History: Diagnosis Date ??? Arrhythmia bradycardia, weak heart ??? History of CHF (congestive heart failure) ??? ID, old ??? Psoriasis ??? S/P angioplasty 2019 ??? Thin skin bruises easily ??? Type 2 diabetes mellitus (HCC) ??? Wears dentures upper and lower Past Surgical History: Procedure Laterality Date ??? 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 CATARACT EXTRACTION, BILATERAL ??? LAPAROSCOPIC CHOLECYSTECTOMY ??? SPINAL FUSION 1998 ??? UMBILICAL HERNIA REPAIR 1989 No Known Allergies Taking? Last Dose Start Date End Date Provider aspirin 81 mg enteric coated tablet 12/29/2020 -- -- Reyes Haney MD clopidogreL (PLAVIX) 75 mg tablet Past Week -- -- ProviderReyes MD finasteride (PROSCAR) 5 mg tablet 12/29/2020 -- -- Reyes Haney MD furosemide (LASIX) solution 40 mg/4 mL 12/29/2020 -- -- Reyes Haney MD glimepiride (AMARYL) 2 mg tablet 12/29/2020 -- -- ProviderReyes MD metFORMIN (FORTAMET) 1,000 mg 24 hr tablet 12/29/2020 -- -- Reyes Haney MD metoprolol XL (TOPROL-XL) 25 mg extended release tablet 12/30/2020 -- -- Reyes Haney MD pravastatin (PRAVACHOL) 40 mg tablet 12/29/2020 -- -- Reyes Haney MD tamsulosin (FLOMAX) 0.4 mg extended release capsule 12/29/2020 -- -- ProviderReyes MD Current Facility-Administered Medications: ??? ceFAZolin (ANCEF) 2,000 mg/20 mL in sterile water (premix) 2,000 mg, 2,000 mg, intravenous, Once ??? sodium chloride 0.9% flush 0.5-20 mL, 0.5-20 mL, intra-catheter, PRN ??? vancomycin 1250 mg/250 mL in sodium chloride 0.9% (premix) 1,250 mg, 15 mg/kg, intravenous, Once Social History Tobacco Use Smoking Status Former Smoker ??? Packs/day: 0.25 ??? Years: 30.00 ??? Pack years: 7.50 ??? Types: Cigars ??? Quit date: 1998 ??? Years since quittin.6 Smokeless Tobacco Never Used Substance and Sexual Activity Alcohol Use Not on file Substance and Sexual Activity Drug Use Not on file History reviewed. No pertinent family history. Vitals: 12/30/20 1044 BP: 120/69 Pulse: 57 Resp: 16 Temp: 36.2 ??C (97.1 ??F) SpO2: 97% PT: 12/26/2020: 14.0 sec INR: 12/26/2020: 1.1 APTT: 12/26/2020: 36 sec Hgb A1C: No results found for requested labs within last 720 hours. CBC RBC: 12/26/2020: 4.02 M/cumm* RDW: No results found for requested labs within last 720 hours. MCHC: 12/26/2020: 32.7 g/dL MCH: 12/26/2020: 30.6 pg MCV: 12/26/2020: 93.5 fL Hct: 12/26/2020: 37.6 %* Hgb: 12/26/2020: 12.3 g/dL* WBC: 12/26/2020: 7.8 K/cumm MPV: 12/26/2020: 12.0 fL Platelets: 12/26/2020: 143 K/cumm* RDW CV: 12/26/2020: 14.5 % RDW Sd: 12/26/2020: 49.5 fL* BMP Glucose: 12/26/2020: 88 mg/dL Calcium: 12/26/2020: 10.4 mg/dL* Sodium: 12/26/2020: 142 mmol/L Potassium: 12/26/2020: 5.4 mmol/L* CO2: 12/26/2020: 30 mmol/L Chloride: 12/26/2020: 102 mmol/L BUN: 12/26/2020: 21 mg/dL Creatinine: 12/26/2020: 1.20 mg/dL DOS Physical Exam Medical history, medications, and allergies reviewed. Attestation: I endorse the findings of the anesthesia pre-evaluation assessment dated: 12/30/2020. Airway Exam: Mallampati: II Cardiovascular Exam: Rate: regular Pulmonary Exam: LCTA Anesthesia Plan ASA 4 Planned anesthesia: General Informed Consent: Anesthesia plan and risks discussed with patient. Consent and Attending signature: I and/or my designee have discussed the anesthesia plan, benefits, possible alternatives, parental presence at time of induction (if indicated), and clinically relevant risks that may include dental injury, unintentional awareness, and/or other complications. The patient and/or parent/legal guardian understand, and agree to proceed. All questions answered. documented in this encounter Plan of Treatment Not on file documented as of this encounter Visit Diagnoses Not on filedocumented in this encounter Administered Medications Inactive Administered Medications - up to 3 most recent administrations Medication Order MAR Action Action Date Dose Rate Site ceFAZolin (ANCEF) 2,000 mg/20 mL in sterile water (premix) 2,000 mg 2,000 mg, intravenous, at 400 mL/hr, Administer over 3 Minutes, Once, On Tue12/30/20 at 1130, For 1 dose, Pre-Op, Indications: Prophylaxis, SurgicalIndications:Prophylaxis, Surgical Given 12/30/2020 1:28 PM CDT 2,000 mg fentaNYL (SUBLIMAZE) preservative free injection intravenous, As needed, Starting on Tue12/30/20 at 1322, Anesthesia Intra-op Given 12/30/2020 2:28 PM CDT 25 mcg Given 12/30/2020 2:21 PM CDT 25 mcg Given 12/30/2020 2:13 PM CDT 25 mcg Lactated Ringer's (LR) infusion intravenous, Continuous PRN, Starting on Tue12/30/20 at 1317, Anesthesia Intra-op New Bag 12/30/2020 1:17 PM CDT lidocaine (cardiac) (XYLOCAINE) preservative free injection intravenous, As needed, Starting on Tue12/30/20 at 1322, Anesthesia Intra-op, Indications: Ventricular ArrhythmiasIndications:Ve ntricular Arrhythmias Given 12/30/2020 1:22 PM CDT 3 mL ondansetron (ZOFRAN) injection intravenous, Administer over 2 Minutes, As needed, Starting on Tue12/30/20 at 1428, Anesthesia Intra-op Given 12/30/2020 2:28 PM CDT 4 mg phenylephrine (SEAN-SYNEPHRINE) 25,000 mcg in sodium chloride 0.9% 250 mL (100 mcg/mL) infusion intravenous, Continuous PRN, Starting on Tue12/30/20 at 1330, Anesthesia Intra-op Rate/Dose Change 12/30/2020 1:45 PM CDT 0.5 mcg/kg/min 27.21 mL/hr New Bag 12/30/2020 1:30 PM CDT 0.2 mcg/kg/min 10.884 mL /hr propofoL (DIPRIVAN) 10 mg/mL IV intravenous, As needed, Starting on Tue12/30/20 at 1322, Anesthesia Intra-op Given 12/30/2020 1:22 PM CDT 100 mg documented in this encounter Care Teams Seam Steamer Relationship Specialty Start Date End Date Floyd Mckinney MD [address] [place] [address] PCP - General 03/11/20 Jarvis Burdick MD [address] [place] [address] Consulting Physician Cardiovascular Disease 12/26/20 documented as of this encounter
--- OUTSIDE RECORDS SUMMARY | 2024-05-22 02:17 | XMS_ITS | Encounter Summary ---
Author Organization [facility] Healthcare Address [address] [place] [address] Care Team Providers Care Type Disk Quality Control Supervisor Name Role Phone Floyd Mckinney MD Primary Care Provider [phone] Jarvis Burdick MD Unavailable [phone] Reason for Referral * Diagnostic Imaging (Routine) - Closed Specialty Diagnoses / Procedures Referred By David t Referred To Contact Diagnoses Preoperative testing Procedures XR Chest Pa Lateral 2 Views X-ray chest 2 views Mehran Swann MD [address] [place] [address] Phone: tel: fax: [address] [phone] Referral ID Status Reason Start Date Expiration Date Visits Re quested Visits Authorized [id number] Closed 12/24/2020 01/23/2022 1 1 * Cardiology (Routine) - Closed Specialty Diagnoses / Procedures Referred By Contarnoldo moon Referred To Contact Diagnoses Preoperative testing Procedures ECG 12 lead Mehran Swann MD [address] [place] [address] Phone: tel: fax: [address] [phone] Referral ID Status Reason Start Date Expiration Date Visits Re quested Visits Authorized [id number] Closed 12/24/2020 01/23/2022 1 1 Encounter Details Date Type Department Care Team (Late st Contact Info) Description 12/24/2020 Orders Only [facility] PreAdmission Testing [address] [place] [address] Bessie Vincent RN Preoperative testing (Primary Dx) Social History Tobacco Use Types Packs/Day Years Used Date Smoking Tobacco: Never Assessed Sex and Gender Information Value Date Recorded Sex Assigned at Not on file 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 XR CHEST PA LATERAL 2 VIEWS REASON FOR STUDY: ?? preop ??Pre-op images ?? TECHNIQUE: ?? Frontal and lateral radiographic views of the chest acquired. COMPARISON: ?? None FINDINGS: LUNGS/PLEURA: ??No focal consolidation or pneumothorax. No pleural effusion. HEART/MEDIASTINUM: ??Heart size is normal. Normal mediastinal and hilar contours. HARDWARE/LINES/TUBES: ??None. BONES: ??No acute findings. OTHER: ??No other significant finding. IMPRESSION: ?? No acute cardiopulmonary abnormality. THIS IS AN ELECTRONICALLY VERIFIED FINAL REPORT 12/27/2020 10:48 AM - Electronically signed by Leoncio Guevara M.D. D: ??12/27/2020 10:48 AM T: Report ID: [id number] Reading Location: ??[id number] Procedure Note Leoncio Guevara MD - 12/27/2020 EXAM DESCRIPTION: XR CHEST PA LATERAL 2 VIEWS REASON FOR STUDY: preop Pre-op images TECHNIQUE: Frontal and lateral radiographic views of the chestacquired. COMPARISON: None FINDINGS: LUNGS/PLEURA: No focal consolidation or pneumothorax. No pleuraleffusion. HEART/MEDIASTINUM: Heart size is normal. Normal mediastinal and hilar contours. HARDWARE/LINES/TUBES: None. BONES: No acute findings. OTHER: No other significant finding. IMPRESSION: No acute cardiopulmonary abnormality. THIS IS AN ELECTRONICALLY VERIFIED FINAL REPORT 12/27/2020 10:48 AM - Electronically signed by Leoncio Guevara M.D. T: Report ID: [id number] Reading Location: [place] [address] Mehran Swann MD IMG XR PROCEDURES Final Result * MRSA Only (Staphylococcs aureus) PCR Nasal (12/26/2020 10:15 AM CDT) PCR Scrn, Methicillin resistant Staphylococcus aureus (MRSA) Not Detected Not Detected JULIO Comment: Testing performed using Nucleic Acid Amplification with the Biomeasure Xpert MRSA Assay. This assay detects DNA from SCCmec strains of Staphylococcus aureus using Real- Time PCR and has been cleared by the FDA. Performance characteristics have been verified by the [facility]. Nasal 12/26/2020 10:1 5 AM CDT 12/26/2020 10:22 AM CDT Mehran Swann MD LAB MICROBIOLOGY - GENERAL ORD ERABLES Final Result Performing Organization Address [facility] de Phone Number [facility] [address] [place] [address] * aPTT (12/26/2020 10:13 AM CDT) aPTT 36 22 - 37 sec [facility] Comment: Interpretive data aPTT test has not been evaluated for monitoring heparin therapy. The anti-Xa is the preferred test. Current interpretive data was last revised on 2019. Blood specimen (specimen) 12/26/2020 10:13 AM CDT 12/26/2020 10:22 AM CDT Mehran Swann MD LAB BLOOD ORDERABLES Final Res ult Performing Organization Address City/[facility]/ZIP Co de Phone Number JULIO [address] [place] [address] * Protime-INR (12/26/2020 10:13 AM CDT) PT 14.0 12.0 - 14.6 sec [facility] INR 1.1 [facility] Comment: Ref Range High Interpretive data Oral anticoagulant therapeutic ranges: Venous thromboembolism prophylaxis or treatment: 2.0-3.0 CARDIOLOGY Standard range: 2.0-3.0 High-intensity range: 2.5-3.5 Refer to indication-specific guidelines for appropriate target ranges for prosthetic heart valve replacement. Current interpretive data was last revised on 2019. Blood specimen (specimen) 12/26/2020 10:13 AM CDT 12/26/2020 10:22 AM CDT Mehran Swann MD LAB BLOOD ORDERABLES Final Res ult [facility] [address] Department [place] [address] * (ABNORMAL) Basic metabolic panel (12/26/2020 10:13 AM CDT) Sodium 142 135 - 145 mmol/L [facility] Potassium, pl 5.4(H) 3.3 - 4.9 mmol/L [facility] Chloride 102 97 - 110 mmol/L [facility] CO2 30 22 - 32 mmol/L [facility] Anion gap 10 2 - 15 mmol/L [facility] BUN 21 8 - 25 mg/dL [facility] Creatinine 1.20 0.80 - 1.30 mg/dL [facility] Glucose 88 70 - 199 mg/dL [facility] Comment: Interpretive Data Fasting glucose >/= 126 [...] interpretive data was last revised 2017. Calcium 10.4(H) 8.5 - 10.3 mg/dL [facility] Blood specimen (specimen) 12/26/2020 10:13 AM CDT 12/26/2020 10:22 AM CDT Mehran Swann MD LAB BLOOD ORDERABLES Final Res ult Performing Organization Address [facility] Co de Phone Number [address] [place] [address] * (ABNORMAL) CBC with auto differential (12/26/2020 10:13 AM CDT) Pathologist [facility] WBC 7.8 3.8 - 9.9 K/cumm [facility] Hgb 12.3(L) 13.0 - 17.5 g/dL [facility] Hct 37.6(L) 38.9 - 50.3 % [facility] Plt 143(L) 150 - 400 K/cumm [facility] MPV 12.0 9.1 - 12.3 fL [facility] RBC 4.02(L) 4.30 - 5.80 M/cumm [facility] MCV 93.5 81.3 - 96.4 fL [facility] MCH 30.6 27.1 - 33.3 pg [facility] MCHC 32.7 32.3 - 35.7 g/dL [facility] RDW CV 14.5 11.1 - 14.9 % [facility] RDW SD 49.5(H) 35.7 - 48.1 fL [facility] NRBC abs 0.00 0.00 - 0.01 K/cumm [facility] Blood specimen (specimen) 12/26/2020 10:13 AM CDT 12/26/2020 10:22 AM CDT Mehran Swann MD LAB BLOOD ORDERABLES Final Res ult Performing Organization Address City/[facility] Co de Phone Number [address] [place] [address] * ECG 12 lead (12/26/2020 9:58 AM CDT) Pathologist [facility] Ventricular Rate EKG/Min 63 BPM [facility] Atrial Rate 63 BPM [facility] NC-Interval (MSEC) 116 ms [facility] QRS-Interval (MSEC) 102 ms [facility] QT-Interval (MSEC) 460 ms [facility] QTc 470 ms [facility] P Watson -21 degrees [facility] R Watson -16 degrees [facility] T Watson 192 degrees [facility] Diagnosis Sinus rhythm with frequent , and consecutive Premature ventricular complexes Possible Inferior infarct , age undetermined ST & T wave abnormality, consider lateral ischemia Abnormal ECG When compared with ECG of 11-MAR-2020 16:55, NC interval has decreased ST now depressed in Inferior leads ST now depressed in Anterior leads Inverted T waves have replaced nonspecific T wave abnormality in Lateral leads [facility] 12/26/2020 9:58 AM CDT 12/26/2020 3:48 PM CDT us Mehran Swann MD ECG ORDERABLES Final Result [facility] documented in this encounter Visit Diagnoses Diagnosis Preoperative testing- Primary Unspecified pre-operative examination Preoperative testing Unspecified pre-operative examination documented in this encounter Care Teams Type Disk Quality Control Supervisor Relationship Specialty Start Date End Date Floyd Mckinney MD [address] [place] [address] PCP - General 03/11/20 Jarvis Burdick MD [address] [place] [address] Consulting Physician Cardiovascular Disease 12/26/20 documented as of this encounter
--- OUTSIDE RECORDS SUMMARY | 2024-05-22 02:17 | XMS_ITS | Encounter Summary ---
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 The 2019-Novel Coronavirus Assay (COVID-19) Real Time RT-PCR assay is for in vitro diagnostic use under FDA emergency use authorization only. A negative RT-PCR result does not preclude infection with COVID-19 and should not be used as the sole basis for treatment or other patient management decisions. Additional sample types have been validated according to CLIA regulations. ?? Current Interpretive Data was last revised on 2019. First COVID-19 test? No [facility] Employeed in healthcare? No [facility] status? No [facility] Group care resident? No JULIO WILLIS Hospitalized? Yes [facility]UL[facility] Is patient in ICU? No [facility] Symptomatic as defined by CDC? Unknown [facility] Nasopharyngeal 03/11/2020 5: 32 PM CDT 03/12/2020 10:13 AM CDT us [facility] LAB MICROBIOLOGY - GENERAL ORDER SUMMER Final Result Performing Organization Address City/State/[facility] Co de Phone Number [facility] [place] [address] documented in this encounter Visit Diagnoses Not on filedocumented in this encounter Care Teams Center Manager Relationship Specialty Start Date End Date Floyd Mckinney MD [address] [place] [address] PCP - General 03/11/20 documented as of this encounter
--- OUTSIDE RECORDS SUMMARY | 2024-05-22 02:17 | XMS_ITS | Encounter Summary ---
Author Organization [facility] Healthcare Address [address] [place] [address] Care Team Providers Care Tool And Equipment Rental Clerk Name Role Phone Floyd Mckinney MD Primary Care Provider [phone] Jarvis Burdick MD Unavailable [phone] Encounter Details Date Type Department Care Team (Late st Contact Info) Description 12/24/2020 Orders Only [facility] PreAdmission Testing [address] [place] [address] Sarah Ford, RN Social History Tobacco Use Types Packs/Day Years Used Date Smoking Tobacco: Never Assessed Sex and Gender Information Value Date Recorded Sex Assigned at Not on file 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
--- OUTSIDE RECORDS SUMMARY | 2024-05-22 02:17 | XMS_ITS | Encounter Summary ---
Author Organization [facility] Healthcare Address [address] [place] [address] Care Team Providers Care Go Cart Mechanic Name Role Phone Floyd Mckinney MD Primary Care Provider [phone] Jarvis Burdick MD Unavailable Reason for Referral * Diagnostic Imaging (Routine) - Closed Specialty Diagnoses / Procedures Referred By David moon Referred To Contact Diagnoses Preoperative testing Procedures XR Chest Pa Lateral 2 Views X-ray chest 2 views Mehran Swann MD [address] [place] [address] Phone: tel: fax: [address] [phone] Referral ID Status Reason Start Date Expiration Date Visits Re quested Visits Authorized [id number] Closed 12/24/2020 01/23/2022 1 1 Reason for Visit * Diagnostic Imaging (Routine) - Closed Specialty Diagnoses / Procedures Referred By David moon Referred To Contact Diagnoses Preoperative testing Procedures XR Chest Pa Lateral 2 Views X-ray chest 2 views Mehran Swann MD [address] [place] [id number] Phone: tel: fax: [address] [phone] Referral ID Status Reason Start Date Expiration Date Visits Re quested Visits Authorized [id number] Closed 12/24/2020 01/23/2022 1 1 Encounter Details Date Type Department Care Team (Latest Contact Info) Description 12/26/2020 11:50 AM CDT - 12/26/2020 11:59 PM CDT Hospital Encounter [facility] [address] [place] [address] Preoperative testing Discharge Disposition: Discharge to home or self care Social History Tobacco Use Types Packs/Day Years Used Date Smoking Tobacco: Former Cigarettes 0.3 30 1 969 - 1998 Cigars Smokeless Tobacco: Never Sex and Gender Information Value Date Recorded Sex Assigned at Not on file Legal Sex Male 1:00 AM [employer] Gender Identity Not on file Sexual Orientation Not on file documented as of this encounter Medications at [...] mg/4 mL Take by mouth daily 1 documented as of this encounter Discharge Disposition Disposition Code Departure Means Destination Discharge to home or self care documented in this encounter Plan of Treatment Not on file documented as of this encounter Procedures Procedure Name Priority Date/Time Associated Diagnosis Comments XR CHEST PA LATERAL 2 VIEWS Schedule Routine, Read Routine (OP Routine) 12/26/2020 12:08 PM CDT Preoperative testing documented in this encounter Results * XR Chest Pa [...] 10:48 AM - Electronically signed by Leoncio DOS SANTOS D: ??12/27/2020 10:48 AM T: Report ID: [id number] Reading Location: ??[id number] Procedure Note Leoncio Guevara MD - 12/27/2020 [...] 10:48 AM - Electronically signed by Leoncio DOS SANTOS T: Report ID: [id number] Reading Location: [id number] Mehran Swann MD IMG XR PROCEDURES Final Result documented in this encounter Visit Diagnoses Diagnosis Preoperative testing Unspecified pre-operative examination documented in this encounter Care Teams Go Cart Mechanic Relationship Specialty Start Date End Date Floyd Mckinney MD [address] [place] [address] PCP - General 03/11/20 Jarvis Burdick MD [address] [place] [address] Consulting Physician Cardiovascular Disease 12/26/20 documented as of this encounter
== END 2024-05-15 10:24 | disposition home or self-care (01) ==
PROVIDERS: PCP Family Medicine; Referring Provider Family Medicine; Visit Provider Internal Medicine Gastroenterology
PROC: 0DJ08ZZ Inspection of Upper Intestinal Tract, Via Natural or Artificial Opening Endoscopic (ICD-10-PCS; CPT 43235; principal; 2024-05-15 12:30)
DX: K29.50 Unspecified chronic gastritis without bleeding (principal); B96.81 Helicobacter pylori [H. pylori] as the cause of diseases classified elsewhere; E78.5 Hyperlipidemia, unspecified; N40.0 Benign prostatic hyperplasia without lower urinary tract symptoms; D64.9 Anemia, unspecified; E11.9 Type 2 diabetes mellitus without complications; I25.10 Atherosclerotic heart disease of native coronary artery without angina pectoris; I50.20 Unspecified systolic (congestive) heart failure; I27.20 Pulmonary hypertension, unspecified; I35.0 Nonrheumatic aortic (valve) stenosis; Z79.82 Long term (current) use of aspirin; Z79.02 Long term (current) use of antithrombotics/antiplatelets; Z79.84 Long term (current) use of oral hypoglycemic drugs; Z98.890 Other specified postprocedural states; Z98.84 Bariatric surgery status; Z98.1 Arthrodesis status; Z90.49 Acquired absence of other specified parts of digestive tract; Z98.61 Coronary angioplasty status; Z87.891 Personal history of nicotine dependence; Z87.19 Personal history of other diseases of the digestive system; Z87.442 Personal history of urinary calculi; Z82.49 Family history of ischemic heart disease and other diseases of the circulatory system
CPT/HCPCS: 43239; 82948; 88305; J0290; J1580; J2704; J7120

== ENCOUNTER 2024-06-05 08:14 | Outpatient (CLI) | payer OTHER, SELFPAY ==
[2024-06-05 14:01] LABS: Alanine Aminotransferase 11 U/L (6-50); Albumin Level 3.9 g/dL (3.5-5.1); Alkaline Phosphatase 46 U/L (38-126); Anion Gap 7 mmol/L (4-12); Aspartate Amino Transferase 83 U/L (17-59); Bilirubin,Total 1.2 mg/dL (0.2-1.3); Blood Urea Nitrogen 25 mg/dL (9-20); Carbon Dioxide 29 mmol/L (22-30); Chloride 100 mmol/L (98-107); Cholesterol 63 mg/dL (0-200); Estimated Glomerular Filt Rate > 60; Glucose 88 mg/dL (65-110); HDL Direct 24 mg/dL; Potassium 4.5 mmol/L (3.4-5.0); Sodium 136 mmol/L (137-145); Triglycerides 67 mg/dL (<150)
[2024-06-05 14:05] LABS: Vitamin D 25 Hydroxy 62.1 ng/mL
[2024-06-05 14:39] LABS: Microalbumin Urine Random 22.5 mg/L (0-16.7)
[2024-06-05 14:42] LABS: Creatinine Urine 44.2 mg/dL; MALB Creatinine Ratio 50.9 mg/g (0-30)
[2024-06-05 16:06] LABS: LDL Cholesterol Direct < 30 mg/dL
[2024-06-05 21:30] LABS: Hemoglobin A1C 6.9 % (<5.7)
== END 2024-06-05 08:15 | disposition home or self-care (01) ==
LOC: ANHGOSHLAB 08:15
PROVIDERS: PCP Emergency Medicine; Visit Provider Emergency Medicine
DX: E78.5 Hyperlipidemia, unspecified (principal); E55.9 Vitamin D deficiency, unspecified; E11.9 Type 2 diabetes mellitus without complications
CPT/HCPCS: 36415; 80053; 80061; 82043; 82306; 83036